=== PATIENT | male | born 1955 | race Caucasian/White ===

== ENCOUNTER 2018-01-17 10:09 | Inpatient (IN) ==
--- NOTE | 2018-01-17 11:24 | ED ---
HPI General Chief complaint: Extremity Problem,Nontraumatic Stated complaint: Leg complaint Time Seen by Provider: 01/17/18 11:01 History of Present Illness HPI narrative: 62-year-old male with a history of metastatic non-small cell lung cancer, GERD, hypertension presents to the emergency department for evaluation of lower extremity pain and weakness. The patient states that last night at 2 AM he woke up with cramps in his legs and soreness as well as paresthesias. States that from the knee down is where he had this pain and soreness and the sensation of his legs feeling asleep. States that this has improved and his symptoms are mild at this point. He does state that his legs are weak and he has had difficulty ambulating due to the weakness. This also began last night. He had a left upper lobectomy performed 01/02/18 at the [facility] and was discharged 5 days ago. States that he is concerned about possible DVT. He denies any chest pain, shortness of breath, abdominal pain, nausea, vomiting, diarrhea, back pain, headache, dizziness, cough or cold symptoms, fever or chills. PCP is the family practice clinic. Oncologist locally is Dr. Hernandez. Related Data Home Medications Medication Instructions Recorded Confirmed acetaminophen 500 mg PO Q8HR 01/17/18 01/17/18 budesonide-formoterol [Symbicort] 2 puff INHALATION BID 01/17/18 01/17/18 folic acid 1 mg PO DAILY 01/17/18 01/17/18 gabapentin 100 mg PO DAILY 01/17/18 01/17/18 ibuprofen [Motrin IB] 800 mg PO TID 01/17/18 01/17/18 [id number] 1 cap PO DAILY 01/17/18 01/17/18 [krill oil] metoprolol tartrate 25 mg PO BID 01/17/18 01/17/18 multivitamin 1 tab PO DAILY 01/17/18 01/17/18 omeprazole 40 mg PO DAILY 01/17/18 01/17/18 oxycodone 10 mg PO Q4-6H 01/17/18 01/17/18 tramadol 50 mg PO Q6H 01/17/18 01/17/18 Allergies Allergy/AdvReac Type Severity Reaction Status Date / Time No Known Allergies Allergy Unverified 01/17/18 11:06 Review of Systems ROS: all other systems reviewed are negative [facility] Social History Social History Substance History: No History of Abuse Second Hand Smoke Exposure: No Smoking Status: Former smoker Tobacco Type: Cigarettes Packs Per Day: 2 Cigarettes Per Day: 40.0 Years Smoked: 45 Pack-Years: 90.00 Smoking End Date: 08/07/17 How Often Do You Have a Drink Containing Alcohol: 2 to 3 times a week Hx Recent Travel: No Recent Travel in [facility] within the Last 8 Weeks: No Recent Out of Country Travel within the Last 8 Weeks: No Immunization History Tetanus Immunization: Unsure Hx Influenza Vaccine This Season: No Exam Narrative Exam Narrative: GENERAL: Well-nourished and well-developed pleasant patient in no acute distress who is nontoxic appearing. SKIN: Warm and dry without any obvious rashes or lesions. HEAD: Normocephalic and atraumatic. No bony point tenderness or crepitus noted throughout the sinuses. EYES: No injection, drainage, or hyphema noted. PERRLA. EOMI. ENT: No nasal drainage noted. Oropharynx is clear and the TMs are normal with good landmarks. NECK: Supple and the trachea is midline. CARDIOVASCULAR: Regular rate and rhythm. RESPIRATORY: Breath sounds are equal bilaterally with no accessory muscle use, wheezing, rhonchi, or crackles. GASTROINTESTINAL: Abdomen is soft, non-tender, and nondistended. MUSCULOSKELETAL: Slight ankle swelling noted to right ankle. No calf swelling noted bilaterally, negative Valdo's sign. No obvious deformities, cyanosis, or ecchymosis is present throughout the upper and lower extremities. Patient has full range of motion without any signs of neurovascular compromise. DP pulses are not dopplerable. PT pulses are dopplerable. Strength 5/5 upper and lower extremities. BACK: Nontender without any obvious deformities, bony point tenderness, or crepitus noted throughout the thoracic and lumbar vertebrae. NEUROLOGICAL: Awake, alert, and oriented. Normal speech and gait. Cranial nerves are grossly intact. Course Initial Documented Vital Signs Temperature 97.9 F 01/17/18 10:20 Pulse Rate 67 01/17/18 10:20 Respiratory Rate 19 01/17/18 10:20 Blood Pressure 145/70 H 01/17/18 10:20 Pulse Oximetry 99 01/17/18 10:20 Last Documented Vital Signs Temperature 98.0 F 01/17/18 16:52 Pulse Rate 63 01/17/18 16:52 Respiratory Rate 20 01/17/18 16:52 Blood Pressure 172/74 H 01/17/18 16:52 Pulse Oximetry 95 01/17/18 16:52 Medical Decision Making LEE ANN Attestation LEE ANN supervised visit: Yes Attestation: The history, exam, and medical decision-making in the associated mid-level provider note were completed with my assistance. I reviewed and agree with the findings presented. I attest that I had a [id number] encounter with the patient on the same day, and personally performed and documented my assessment and findings in the medical record. *My assessment and Findings: 62-year-old man, recent partial lobectomy for primary lung cancer status post chemotherapy and resection of a met in the head, doing overall well, presents now with paresthesias weakness and leg pain, more in the right with a little bit of swelling, more paresthesias in the left. Sending really to rule out DVT. He does have a saphenous vein clot. However he has paresthesias on both sides. His platelet count is very low. Unclear why he has such thrombocytopenia. He was receiving unfractionated heparin injections while in the hospital. He has not received chemotherapy recently. He also had unusual symptoms recently of having some perianal anesthesia while trying to use the bathroom last night. He is a fairly normal rectal exam with perianal sensation intact now. Nonetheless history is not concerning for an epidural hematoma with cauda equina syndrome. Will check MRI. Possibly has hit related to thrombocytopenia. Will be admitted to the hospital. Hit panel was sent. Spoke with Dr. Hernandez. Will crossmatch for platelets and blood in case he has to go emergently to the operating room epidural hematoma in the setting of profound thrombus cytopenia. MDM Narrative Medical decision making narrative: 2-year-old male presents to the emergency department for evaluation of lower extremity aching, cramping and paresthesia with weakness in the lower extremities. Patient is afebrile, vital signs are stable. On physical exam the patient has no weakness but does have slightly more brisk reflexes in the right leg. IV access obtained, labs have been drawn and sent. Patient placed on cardiac telemetry and pulse oximetry monitoring. Ultrasound of bilateral lower extremities has been ordered and is pending. Bilateral lower extremity ultrasound shows occlusive thrombus in the greater saphenous vein on the right. CBC shows platelet count of 15, hemoglobin 9.3, hematocrit 27.2. Coags are unremarkable. Patient's platelet count is critically low, concern for HIIT as he was recently being given heparin postoperatively. Will do MRI of T and L spine to rule out epidural hematoma as cause of lower extremity weakness and paresthesia. My attending physician spoke with Dr. Mary segal who recommends admission to medicine, no anticoagulation at this time for the greater saphenous clot. I spoke with the residents who agrees to admit the patient to their service. I discussed the case with my attending physician Dr. Anderson who is aware of the patients history, physical examination findings, and treatment plan. Medical Screen Exam Complete: Yes Emergency Medical Condition: Yes Lab Data Result diagrams: 01/17/18 20:59 01/17/18 11:45 Lab Results 01/17/18 01/17/18 01/17/18 Range/Units 11:45 11:45 11:45 WBC 10.6 (4.0-11.0) th/mm3 RBC 2.85 L (4.50-5.90) mil/mm3 Hgb 9.3 L (13.0-17.0) gm/dL Hct 27.2 L (39.0-51.0) % MCV 95.2 (80.0-100.0) fL MCH 32.6 (27.0-34.0) pg MCHC 34.2 (32.0-36.0) % RDW 16.5 (11.6-17.2) % Plt Count 15 L* (150-450) th/mm3 MPV 9.9 (7.0-11.0) fL Prelim Diff (Auto) Slide review pending Neut % (Auto) 64.0 (16.0-70.0) % Lymph % (Auto) 19.0 (9.0-44.0) % Craven % (Auto) 12.6 H (0.0-8.0) % Eos % (Auto) 3.5 (0.0-4.0) % Baso % (Auto) 0.9 (0.0-2.0) % Neut # (Auto) 6.8 (1.8-7.7) th/mm3 Lymph # (Auto) 2.0 (1.0-4.8) th/mm3 Craven # (Auto) 1.3 H (0.0-0.9) th/mm3 Eos # (Auto) 0.4 (0.0-0.4) th/mm3 Baso # (Auto) 0.1 (0.0-0.2) th/mm3 WBC Differential . Diff Scan Auto diff confirmed Seg Neuts % (Manual) (16-70) % Band Neuts % (Manual) (0-6) % Lymphocytes % (Manual) (9-44) % Monocytes % (Manual) (0-8) % Eosinophils % (Manual) (0-4) % Metamyelocytes % (Man) (0-1) % Myelocytes % (Man) (0-0) % Abs Neuts (Manual) (1.8-7.7) th/mm3 Differential Comment . Platelet Estimate Rare L (Normal) Platelet Morphology Normal (Normal) RBC Morphology (Normal) PT 12.7 H (9.8-11.6) sec INR 1.3 Ratio APTT 25.2 (24.3-30.1) sec Sodium 144 (136-145) meq/L Potassium 4.3 (3.5-5.1) meq/L Chloride 111 H (98-107) meq/L Carbon Dioxide 25.4 (21.0-32.0) meq/L Anion Gap 8 (5-15) meq/L BUN 19 H (7-18) mg/dL Creatinine 1.20 (0.60-1.30) mg/dL Estimated GFR 61 L (>89) mL/min Random Glucose 82 (74-106) mg/dL Calcium 8.6 (8.5-10.1) mg/dL Total Bilirubin 0.5 (0.2-1.0) mg/dL AST 29 (15-37) U/L ALT 22 (12-78) U/L Alkaline Phosphatase 63 (45-117) U/L Total Protein 6.2 L (6.4-8.2) g/dL Albumin 2.8 L (3.4-5.0) g/dL Blood Type Blood Type Recheck Antibody Screen 01/17/18 01/17/18 Range/Units 13:05 20:59 WBC 9.7 (4.0-11.0) th/mm3 RBC 2.78 L (4.50-5.90) mil/mm3 Hgb 8.8 L (13.0-17.0) gm/dL Hct 26.1 L (39.0-51.0) % MCV 94.1 (80.0-100.0) fL MCH 31.9 (27.0-34.0) pg MCHC 33.8 (32.0-36.0) % RDW 16.7 (11.6-17.2) % Plt Count 18 L* (150-450) th/mm3 MPV 8.9 (7.0-11.0) fL Prelim Diff (Auto) Slide review pending Neut % (Auto) 65.9 (16.0-70.0) % Lymph % (Auto) 19.9 (9.0-44.0) % Craven % (Auto) 9.7 H (0.0-8.0) % Eos % (Auto) 3.7 (0.0-4.0) % Baso % (Auto) 0.8 (0.0-2.0) % Neut # (Auto) 6.4 (1.8-7.7) th/mm3 Lymph # (Auto) 1.9 (1.0-4.8) th/mm3 Craven # (Auto) 0.9 (0.0-0.9) th/mm3 Eos # (Auto) 0.4 (0.0-0.4) th/mm3 Baso # (Auto) 0.1 (0.0-0.2) th/mm3 WBC Differential Manual diff final Diff Scan Seg Neuts % (Manual) 73 H (16-70) % Band Neuts % (Manual) 3 (0-6) % Lymphocytes % (Manual) 14 (9-44) % Monocytes % (Manual) 4 (0-8) % Eosinophils % (Manual) 3 (0-4) % Metamyelocytes % (Man) 1 (0-1) % Myelocytes % (Man) 2 H (0-0) % Abs Neuts (Manual) 7.7 (1.8-7.7) th/mm3 Differential Comment . Platelet Estimate Low L (Normal) Platelet Morphology Normal (Normal) RBC Morphology Normal (Normal) PT (9.8-11.6) sec INR Ratio APTT (24.3-30.1) sec Sodium (136-145) meq/L Potassium (3.5-5.1) meq/L Chloride (98-107) meq/L Carbon Dioxide (21.0-32.0) meq/L Anion Gap (5-15) meq/L BUN (7-18) mg/dL Creatinine (0.60-1.30) mg/dL Estimated GFR (>89) mL/min Random Glucose (74-106) mg/dL Calcium (8.5-10.1) mg/dL Total Bilirubin (0.2-1.0) mg/dL AST (15-37) U/L ALT (12-78) U/L Alkaline Phosphatase (45-117) U/L Total Protein (6.4-8.2) g/dL Albumin (3.4-5.0) g/dL Blood Type O Positive Blood Type Recheck Required Antibody Screen Negative Imaging Data Radiologist's impression: Chest X-Ray 01/17/18 00:00 CONCLUSION: Left lung cavities with air-fluid levels which may be postsurgical Status post left thoracotomy Pleural-parenchymal scarring right upper lobe Venous Doppler Study 01/17/18 00:00 CONCLUSION: 1. The study is negative for bilateral upper extremity deep venous thrombosis. Venous Doppler Study 01/17/18 11:22 CONCLUSION: 1. Occlusive thrombus is seen in the greater saphenous vein on the right. Lumbar Spine MRI 01/17/18 12:34 CONCLUSION: 1. Unremarkable appearance of the lumbar spine. 2. No evidence of bony or soft tissue metastases. Thoracic Spine MRI 01/17/18 12:34 CONCLUSION: 1. Small enhancing nodules identified along the surface of the spinal cord the lower thoracic spine which may represent intradural extra medullary lesions and drop metastases. 2. Postthoracotomy changes identified in the left lung with large air-fluid levels. 3. No evidence of bony metastases. Aorta w/Runoff CTA 01/17/18 17:39 CONCLUSION: 1. Infarction of the inferior pole of the right kidney of unknown age. 2. Severe chronic appearing infrarenal atherosclerotic disease causing severe narrowing of the distal aorta and proximal inflow vessels. Outflow is noted with diffuse atherosclerotic change below the bifurcation with two-vessel runoff to the feet. Discharge Plan Discharge Disposition Patient Disposition: 30 Still Patient Discharge Details Diagnosis: Thrombocytopenia, Lower extremity weakness, Thrombosis of right saphenous vein Physicians Team ED Provider: Vik Anderson ED Midlevel Provider: Emmy Da Silva Primary Care Provider: Crescencio Kelly Attending Provider: Carole Ceballos Other Providers: Rafi Mon ; Antwon Blanton ; Connie Hernandez ; Jens Olea Discharge Interventions Interventions: ED Discharge Assessment Last Done: 01/17/18 17:13 Vital Signs Last Done: 01/17/18 13:00 Status ED Status: Left Department Discharge Information Discharge Date/Time: 01/17/18 17:13
--- NOTE | 2018-01-17 12:11 | US ---
EXAM DATE: 01/17/2018 12:06 PM EDT AGE/SEX: 62 years / Male INDICATIONS: Pain and swelling. CLINICAL DATA: This is the patient's initial encounter. Patient reports that signs and symptoms have been present for 2 days and indicates a pain score of 3/10. MEDICAL/SURGICAL HISTORY: . Brain tumor, Chemotherapy. Lung cancer. . COMPARISON: No prior exams available for comparison. TECHNIQUE: Venous ultrasound of both lower extremities was performed from the inguinal ligament to t he proximal calf. Real-time, color Doppler and spectral tracing, compression and augmentation techni ques were used. FINDINGS: Right Leg: Common femoral, femoral, popliteal, peroneal and posterior tibial veins are patent with a normal grayscale and color Doppler appearance. The right iliac vein is patent. Left Leg: Normal compression of the deep venous system from the inguinal region to the proximal calf . No echogenic clot is seen. Normal response of the venous system to augmentation and respiration. Other: There is occlusive thrombus in the greater saphenous vein on the right. CONCLUSION: 1. Occlusive thrombus is seen in the greater saphenous vein on the right. Electronically signed by: Leon Tello MD 01/17/2018 12:10 PM EDT
[2018-01-17 12:16] LABS: Baso # (Auto) 0.1 th/mm3 (0.0-0.2); Baso % (Auto) 0.9 % (0.0-2.0); Eos # (Auto) 0.4 th/mm3 (0.0-0.4); Eos % (Auto) 3.5 % (0.0-4.0); Hematocrit 27.2 % (39.0-51.0); Hemoglobin 9.3 gm/dL (13.0-17.0); Mean Corpuscular HGB Conc 34.2 % (32.0-36.0); Mean Corpuscular Hemoglobin 32.6 pg (27.0-34.0); Mean Corpuscular Volume 95.2 fL (80.0-100.0); Mean Platelet Volume 9.9 fL (7.0-11.0); Mono # (Auto) 1.3 th/mm3 (0.0-0.9); Mono % (Auto) 12.6 % (0.0-8.0); Neut # (Auto) 6.8 th/mm3 (1.8-7.7); Red Blood Count 2.85 mil/mm3 (4.50-5.90); Red Cell Distribution Width 16.5 % (11.6-17.2); White Blood Count 10.6 th/mm3 (4.0-11.0)
[2018-01-17 12:24] LABS: Activated Partial Thrombo Time 25.2 sec (24.3-30.1); INR 1.3 Ratio; Prothrombin Time 12.7 sec (9.8-11.6)
[2018-01-17 12:32] LABS: Platelet Count 15 th/mm3 (150-450)
[2018-01-17 12:47] LABS: Alanine Aminotransferase 22 U/L (12-78); Albumin 2.8 g/dL (3.4-5.0); Anion Gap 8 meq/L (5-15); Aspartate Aminotransferase 29 U/L (15-37); Blood Urea Nitrogen 19 mg/dL (7-18); Calcium 8.6 mg/dL (8.5-10.1); Carbon Dioxide 25.4 meq/L (21.0-32.0); Chloride 111 meq/L (98-107); Glomerular Filtration Rate 61 mL/min (>89); Glucose,Random 82 mg/dL (74-106); Potassium 4.3 meq/L (3.5-5.1); Sodium 144 meq/L (136-145)
[2018-01-17 12:49] LABS: Alkaline Phosphatase 63 U/L (45-117); Total Protein 6.2 g/dL (6.4-8.2)
[2018-01-17 12:58] LABS: Platelet Estimate Rare (Normal); Platelet Morphology Normal (Normal)
--- NOTE | 2018-01-17 13:17 | P.HPFP ---
History of Present Illness Primary Care Physician: Crescencio Kelly MD History of Present Illness: 62 y/o M, woke up last night with severe pain in lower extremities bilaterally. The pain was so bad it woke him up at 2AM this morning. Pt states it felt like terrible muscle cramps and also a "pins and needles" sensation in both legs and feet bilaterally. He woke up his and said he didn't think he could make it to the bathroom. Even with the walker his legs "could not work" and he fell coming back from the bathroom. He continued to have pain overnight despite percocet and leg massage. When he woke up this morning he felt OK, was able to walk, then it started to hurt again. He sat down in the recliner and the pain returned and he was unable to get back out of the chair. He had to crawl to his walker. They called their Nurse Practitioner from the recent surgery, and they were told to come into the ER for a venous duplex US for blood clots. Pt has been constipated from his pain medication post-op, but had a BM this morning. No changes in urination. In ROS; he does feel numbness/parasthesias around his rectum (could not feel wiping his bottom last night). He does not think he had any parasthesias during the BM this morning. - Diagnosis (1) Metastatic primary lung cancer (2) Lower extremity weakness (3) Thrombosis of right saphenous vein (4) Thrombocytopenia (5) Anemia (6) Atrial fibrillation (7) Nutrition, metabolism, and development symptoms Review of Systems Constitutional: Reports chills, Reports night sweats (chills and night sweats x 2 days post-op), Denies headache(s), Denies increased appetite Eyes: Denies blurry vision Cardiovascular: Denies chest pain, Denies chest pain at rest, Denies fast heart rate, Denies lightheadedness Respiratory: Denies chest congestion, Denies cough, Denies coughing up blood Gastrointestinal: Denies abdominal pain, Denies black, tarry stools, Denies coffee ground vomit Genitourinary: Denies decreased urination, Denies urinary frequency, Denies urinary hesitancy Musculoskeletal: Reports abnormal walking (as in HPI), Reports back pain ( chronic x 35 years, slipped disc ) Skin/Breast: Denies itching Psychiatric: Denies abnormal sleep pattern, Denies anxiety, Denies confusion, Denies depression PMFSH - History History Provided By: Patient - Medical History Medical History: Medical History (Last Updated 01/17/18 @ 13:41 by Susanna Bailey MD, R2) Brain tumor FHx: chemotherapy Lung cancer Primary cancer of left lower lobe of lung - Surgical History Surgical History: Surgical History (Last Updated 01/17/18 @ 13:41 by Susanna Bailey MD, R2) History of tympanoplasty - Family History Family History: Family History (Last Updated 01/17/18 @ 13:41 by Susanna Bailey MD, R2) Other Cancer - Social History I have reviewed the patient's Social History: Yes - Tobacco History Second Hand Smoke Exposure: No Tobacco Use In Past 30 Days: No Smoking Status: Former smoker Tobacco Type: Cigars (past , occasional) Packs Per Day: 2 Years Smoked: 45 Smoking End Date: 08/07/17 - Alcohol History How Often Do You Have a Drink Containing Alcohol: Monthly or less - Substance Use History Substance History: No History of Abuse - Travel History History of Recent Travel: No Recent Travel in the [place] Within the Last 8 Weeks: No Recent Travel Out of the Country Within the Last 8 Weeks: No - Immunization History Tetanus Immunization: Unsure Hx Influenza Vaccine This Season: No Medications and Allergies Active Medications: Active Medications Sodium Chloride (Ns Flush) 2 ml IV.FLUSH PRN PRN PRN Reason: FLUSH AFTER USING IV ACCESS Allergies Allergy/AdvReac Type Severity Reaction Status Date / Time No Known Allergies Allergy Unverified 01/17/18 11:06 Home Medications Medication Instructions Recorded Confirmed Type acetaminophen 500 mg PO Q8HR 01/17/18 01/17/18 History budesonide-formoterol [Symbicort] 2 puff INHALATION BID 01/17/18 01/17/18 History folic acid 1 mg PO DAILY 01/17/18 01/17/18 History gabapentin 100 mg PO DAILY 01/17/18 01/17/18 History ibuprofen [Motrin IB] 800 mg PO TID 01/17/18 01/17/18 History rondr-ix-5-jyi-mrd-ymtbbxt-ast 1 cap PO DAILY 01/17/18 01/17/18 History [krill oil] metoprolol tartrate 25 mg PO BID 01/17/18 01/17/18 History multivitamin 1 tab PO DAILY 01/17/18 01/17/18 History omeprazole 40 mg PO DAILY 01/17/18 01/17/18 History oxycodone 10 mg PO Q4-6H 01/17/18 01/17/18 History tramadol 50 mg PO Q6H 01/17/18 01/17/18 History Exam Vital signs: Vital Signs 01/17/18 10:20 01/17/18 11:03 01/17/18 13:00 Temperature 97.9 F Pulse Rate 67 62 61 Respiratory Rate 19 16 24 Blood Pressure 145/70 H 159/69 H 175/74 H Pulse Oximetry 99 100 98 Intake & Output 01/16/18 01/17/18 01/17/18 18:59 06:59 18:59 Weight 69.853 kg - Constitutional no acute distress - Routine Respiratory Exam Present: decreased breath sounds (Decreased breath sounds over left middle lobe) , CTA bilaterally, stridor. Absent: respiratory distress, wheezes, crackles - Routine Cardiovascular Exam Present: RRR, S1, S2. Absent: murmur - Routine Abdominal Exam Present: soft, normoactive bowel sounds. Absent: tenderness - Routine Extremities Exam Absent: clubbing, edema - Detailed Lower Extremity Exam Hip: Bilateral normal inspection Upper leg: Bilateral: normal inspection Knee: Bilateral normal inspection Lower leg: Bilateral normal inspection Comments: No deformities or tenderness of either leg bilaterally, no pain re-created on palpation of calf. No pain with dorsiflexion. Strength intact and 5 out of 5. Patient states his weakness comes and goes and this is not indicative of this weakness. - Routine Skin Exam Present: intact. Absent: erythema - Routine Neurological Exam Present: alert, oriented X3, CN II-XII intact, moving all extremities. Absent: sensory deficit (Sensory intact in upper and lower extremities completely, equally intact), motor deficit, pronator drift Results - Labs Result diagrams: 01/17/18 11:45 01/17/18 11:45 Abnormal lab results 01/17/18 01/17/18 01/17/18 Range/Units 11:45 11:45 11:45 RBC 2.85 L (4.50-5.90) mil/mm3 Hgb 9.3 L (13.0-17.0) gm/dL Hct 27.2 L (39.0-51.0) % Plt Count 15 L* (150-450) th/mm3 [place] % (Auto) 12.6 H (0.0-8.0) % [place] # (Auto) 1.3 H (0.0-0.9) th/mm3 Platelet Estimate Rare L (Normal) PT 12.7 H (9.8-11.6) sec Chloride 111 H (98-107) meq/L BUN 19 H (7-18) mg/dL Estimated GFR 61 L (>89) mL/min Total Protein 6.2 L (6.4-8.2) g/dL Albumin 2.8 L (3.4-5.0) g/dL Short CBC 01/17/18 Range/Units 11:45 WBC 10.6 (4.0-11.0) th/mm3 Hgb 9.3 L (13.0-17.0) gm/dL Hct 27.2 L (39.0-51.0) % Plt Count 15 L* (150-450) th/mm3 BMP 01/17/18 11:45 Sodium 144 Potassium 4.3 Chloride 111 H Carbon Dioxide 25.4 BUN 19 H Creatinine 1.20 Calcium 8.6 Liver Function 01/17/18 Range/Units 11:45 Total Bilirubin 0.5 (0.2-1.0) mg/dL AST 29 (15-37) U/L ALT 22 (12-78) U/L Alkaline Phosphatase 63 (45-117) U/L Albumin 2.8 L (3.4-5.0) g/dL - Imaging Impressions Venous Doppler Study 01/17/18 11:22 CONCLUSION: 1. Occlusive thrombus is seen in the greater saphenous vein on the right. Caprini VTE Risk Assessment Caprini VTE Risk Assessment: No/Low Risk (score <= 1) Caprini Risk Assessment Model: Point Value = 1 Point Value = 2 Point Value = 3 Point Value = 5 Age 41-60 Minor surgery BMI > 25 kg/m2 Swollen legs Varicose veins or History of unexplained or recurrent spontaneous Oral contraceptives or hormone replacement Sepsis (< 1 month) Serious lung disease, including pneumonia (< 1 month) Abnormal pulmonary function Acute myocardial infarction Congestive heart failure (< 1 month) History of inflammatory bowel disease Medical patient at bed rest Age 61-74 Arthroscopic surgery Major open surgery (> 45 min) Laparoscopic surgery (> 45 min) Malignancy Confined to bed (> 72 hours) Immobilizing plaster cast Central venous access Age >= 75 History of VTE Family history of VTE Factor V Leiden Prothrombin [id number] Lupus anticoagulant Anticardiolipin antibodies Elevated serum homocysteine Heparin-induced thrombocytopenia Other congenital or acquired thrombophilia Stroke (< 1 month) Elective arthroplasty Hip, pelvis, or leg fracture Acute spinal cord injury (< 1 month) Prophylaxis Regimen: Total Risk Factor Score Risk Level Prophylaxis Regimen 0-1 Low Early ambulation 2 Moderate Order ONE of the following: *Sequential Compression Device (SCD) *Heparin 5000 units SQ BID 3-4 Higher Order ONE of the following medications: *Heparin 5000 units SQ TID *Enoxaparin/Lovenox 40 mg SQ daily (WT < 150 kg, CrCl > 30 mL/min) *Enoxaparin/Lovenox 30 mg SQ daily (WT < 150 kg, CrCl > 10-29 mL/min) *Enoxaparin/Lovenox 30 mg SQ BID (WT < 150 kg, CrCl > 30 mL/min) AND/OR *Sequential Compression Device (SCD) 5 or more Highest Order ONE of the following medications: *Heparin 5000 units SQ TID (Preferred with Epidurals) *Enoxaparin/Lovenox 40 mg SQ daily (WT < 150 kg, CrCl > 30 mL/min) *Enoxaparin/Lovenox 30 mg SQ daily (WT < 150 kg, CrCl > 10-29 mL/min) *Enoxaparin/Lovenox 30 mg SQ BID (WT < 150 kg, CrCl > 30 mL/min) AND *Sequential Compression Device (SCD) Assessment and Plan - Assessment (1) Metastatic primary lung cancer Code(s): C34.90 - Malignant neoplasm of unspecified part of unspecified bronchus or lung Status: Acute Plan: Status post chemo, status post lobectomy Recent PET scans negative Follow-up MRI of spine to assess for lesions management as per her private oncologist (2) Lower extremity weakness Code(s): R29.898 - Other symptoms and signs involving the musculoskeletal system Status: Acute Plan: Due to spinal lesion versus epidural abscess versus superficial thrombophlebitis versus progressing DVT Follow-up MRI spine Follow-up clinical progress PT evaluation (3) Thrombosis of right saphenous vein Code(s): I82.811 - Embolism and thrombosis of superficial veins of right lower extremity Status: Acute Plan: Doses of lower extremity superficial vein, generally benign and self-limited however a larger vein is involved in this case -Caution with propagation into the DVT system and PE possibility -Likely due to abnormal coagulation at this time -Caution with signs of propagation, may repeat duplex ultrasound with further clinical signs Elevation Warm and cool compresses Compression stockings Pain management (4) Thrombocytopenia Code(s): D69.6 - Thrombocytopenia, unspecified Status: Acute Plan: Postop day #12 from lobectomy, status post heparin 9 days ago Refer to private production lapping machine operator Dr. Hernandez for further recommendations Possible heparin-induced thrombocytopenia versus other etiology No transfusion recommended at this time due to possibility of further coagulation Hold all heparin forms Follow-up ultrasounds upper extremities to screen for DVT Follow-up recommendations of production lapping machine operator; may want to start an nonheparin anticoagulant Will not transfuse platelets unless bleeding, follow-up repeat CBC at 6 PM (5) Anemia Code(s): D64.9 - Anemia, unspecified Status: Acute Plan: No history of anemia per patient Likely chronic anemia, screen for acute anemia, patient at high risk for bleeding due to thrombocytopenia Hemoglobin 9.3, follow-up CBC at 6 PM (6) Atrial fibrillation Code(s): I48.91 - Unspecified atrial fibrillation Status: Acute Plan: Continue telemetry Continue metoprolol Return for arrhythmias (7) Nutrition, metabolism, and development symptoms Code(s): R63.8 - Other symptoms and signs concerning food and fluid intake Status: Acute Plan: Fluids: N.p.o. until MRI results Electrolytes: Follow-up BMP and replete as needed Nutrition: N.p.o. until MRI results DVT prophylaxis: Holding all heparin products, SCDs only
[2018-01-17] MEDS ORDERED: Gabapentin 100 MG Capsule PO SCH (13:45)
[2018-01-17] MEDS: Acetaminophen 500 MG Tablet PO SCH ×2 (14:04→21:18)
[2018-01-17] MEDS: Metoprolol Tartrate 25 MG Tablet PO SCH ×2 (14:04→21:17)
[2018-01-17] MEDS: Folic Acid 1 MG Tablet PO SCH (14:04)
[2018-01-17] MEDS ORDERED: Bisacodyl 10 MG Supp RECTAL PRN (14:08)
[2018-01-17] MEDS ORDERED: Naloxone Inj 0.4 MG/ML Vial IV.PUSH PRN (14:39)
--- NOTE | 2018-01-17 14:50 | XR ---
EXAM DATE: 01/17/2018 2:44 PM EDT AGE/SEX: 62 years / Male INDICATIONS: . Atelectasis, loss of feeling in both legs, numbness, tingling. CLINICAL DATA: This is the patient's initial encounter. Patient reports that signs and symptoms have been present for 1 day and indicates a pain score of 0/10. MEDICAL/SURGICAL HISTORY: . left lung cancer., blood clot in right leg, low platelet count, . partial left lung removed, brain surgery COMPARISON: No prior exams available for comparison. FINDINGS: Air-fluid levels are identified in 2 discrete cavities within the left hemithorax. One is located in the mid lung and the second in the left apex. Postsurgical changes indicative of prior thoracostomy a re noted. There is loss of volume within the left hemithorax suggesting prior lobectomy. Pleural-parenchymal scarring is identified in the right upper lobe. Osseous structures are grossly intact without evidence of destructive lesions. There is a left-sided rib deformity presumably from prior thoracotomy. CONCLUSION: Left lung cavities with air-fluid levels which may be postsurgical Status post left thoracotomy Pleural-parenchymal scarring right upper lobe Electronically signed by: Wesley Cervantes MD 01/17/2018 2:49 PM EDT
[2018-01-17] MEDS ORDERED: Morphine Sulfate Inj 2 MG/ML Vial IV.PUSH PRN (16:00)
[2018-01-17] MEDS ORDERED: Acetaminophen 325 MG Tablet PO PRN (16:00)
--- NOTE | 2018-01-17 16:02 | MR ---
EXAM DATE: 01/17/2018 3:49 PM EDT AGE/SEX: 62 years / Male INDICATIONS: . Lower extremity weakness. CLINICAL DATA: This is the patient's initial encounter. Patient reports that signs and symptoms have been present for 2 days and indicates a pain score of 3/10. MEDICAL/SURGICAL HISTORY: Carcinoma, lung. Lobectomy. Removal of brain tumor. COMPARISON: No prior exams available for comparison. TECHNIQUE: Multiplanar, multisequence MRI of the thoracic spine was performed without and with 7 ml Gadavist (gadobutrol) contrast as a single exam dose. FINDINGS: ALIGNMENT: Vertebral bodies are satisfactorily aligned without evidence of listhesis. FACET AND OSSEOUS STRUCTURES: Vertebral body height is well-maintained. There is no evidence of acut e fracture, bone marrow edema or destructive changes. There is no significant facet arthropathy. INTERVERTEBRAL DISC SPACES: Intervertebral disc are well-maintained without evidence of significant degenerative change. There is no evidence of disc herniation. NEUROLOGIC STRUCTURES: Along the right lateral margin of the spinal cord at the T9-T10 and T11 levels there are small enhancing nodular structures which appear to be intradural and extra medullary in lo cation. The spinal cord otherwise appears normal without evidence of focal abnormality or abnormal en hancement. . CONCLUSION: 1. Small enhancing nodules identified along the surface of the spinal cord the lower thoracic spine which may represent intradural extra medullary lesions and drop metastases. 2. Postthoracotomy changes identified in the left lung with large air-fluid levels. 3. No evidence of bony metastases. Electronically signed by: Wesley Cervantes MD 01/17/2018 4:01 PM EDT
--- NOTE | 2018-01-17 16:04 | MR ---
EXAM DATE: 01/17/2018 3:52 PM EDT AGE/SEX: 62 years / Male INDICATIONS: . Weakness lower extremities. CLINICAL DATA: This is the patient's initial encounter. Patient reports that signs and symptoms have been present for 2 days and indicates a pain score of 3/10. MEDICAL/SURGICAL HISTORY: Carcinoma, lung. Lobectomy. Removal of brain tumor. COMPARISON: No prior exams available for comparison. TECHNIQUE: Multiplanar, multisequence MRI examination of the lumbar spine was performed without and with 7 ml Gadavist (gadobutrol) contrast as a single exam dose. FINDINGS: ALIGNMENT: Vertebral bodies are satisfactorily aligned without evidence of listhesis. FACET AND OSSEOUS STRUCTURES: Vertebral body height is well-maintained. There is no evidence of acut e fracture, bone marrow edema or destructive changes. There is no significant facet arthropathy. INTERVERTEBRAL DISC SPACES: Intervertebral disc are well-maintained without evidence of significant degenerative change. There is no evidence of disc herniation. NEUROLOGIC STRUCTURES: The spinal cord and nerve roots appear normal. There is no evidence of jeannine praveen. . CONCLUSION: 1. Unremarkable appearance of the lumbar spine. 2. No evidence of bony or soft tissue metastases. Electronically signed by: Wesley Cervantes MD 01/17/2018 4:03 PM EDT
--- NOTE | 2018-01-17 16:39 | US ---
EXAM DATE: 01/17/2018 4:35 PM EDT AGE/SEX: 62 years / Male INDICATIONS: Thrombosis. CLINICAL DATA: This is the patient's subsequent encounter. Patient reports that signs and symptoms h ave been present for 1 day and indicates a pain score of 0/10. MEDICAL/SURGICAL HISTORY: . Brain tumor. Chemotherapy. Lung cancer. Lobectomy. COMPARISON: No prior exams available for comparison. FINDINGS: Right Upper Extremity: The vessels are compressible and augmentation response is documented. No fill ing defects are seen. The flow is phasic with respiration. Left Upper Extremity: The vessels are compressible and augmentation response is documented. No filli ng defects are seen. The flow is phasic with respiration. Other: None. CONCLUSION: 1. The study is negative for bilateral upper extremity deep venous thrombosis. Electronically signed by: Leon Tello MD 01/17/2018 4:37 PM EDT
[2018-01-17] MEDS: Ibuprofen 200 MG Tablet PO SCH (18:24)
[2018-01-17] MEDS: Sod Chloride 0.9% Inj 1,000 ML IV.CONT SCH (18:26)
[2018-01-17] MEDS ORDERED: Gadobutrol PF 7.5 MMOL/7.5 ML Vial (for RAD) IV.SIG ONE (18:42)
--- NOTE | 2018-01-17 19:40 | MB ---
cc: Rafi Krishnan MD DATE: 01/17/2018 HISTORY OF PRESENT ILLNESS: He is a 62-year-old right-handed man with atrial fibrillation, brief. About 2 weeks ago, he had a left thoracotomy for lung cancer. He tells me it has not spread anywhere besides his brain, which was in 06/2017 when he had tumor removal and Gamma Knife. He has not had any headaches. He is actually doing quite well. No new back pain. He has an old chronic disk in the low back, and then he woke up early this morning at about 4 a.m. with severe pain down the right thigh and calf, almost like a cramp feeling, although they were not cramped up, and then within less than an hour, the left leg seemed to have pain also. He had difficulty walking. It was very painful, and then when he had a bowel movement, he felt like he was somewhat numb perianally. The pain has lasted about 3 hours or so, seemed to get quite a bit better. He has not had any new back pain. REVIEW OF SYSTEMS: He denies any history of hypertension, diabetes, hypercholesterolemia, NC, CABG, renal or hepatic or thyroid disease, lupus, ulcer, seizure, or stroke. SOCIAL HISTORY: He quit smoking recently when he was diagnosed with cancer but smoked for 45 years. Occasionally has a drink. Lives with his . FAMILY HISTORY: Positive for cancer. Negative for seizure. Positive for stroke. MEDICATIONS AT HOME: 1. He was on Tylenol. 2. Multivitamin. 3. Krill oil. 4. Tramadol 50 q. 6. 5. Oxycodone. 6. Omeprazole. 7. Folic acid. 8. Symbicort. 9. Metoprolol. 10. Ibuprofen. 11. Gabapentin 100 a day. PHYSICAL EXAMINATION: VITAL SIGNS: Afebrile, 62, 16, 159/69. There is a right carotid bruit, although it is hard to tell if it is a radiated murmur. HEART: Regular rhythm with a 1/6 systolic ejection murmur. NEUROLOGIC: Pupils are equal. Visual stewart are full. Extraocular movements intact without nystagmus. Face is symmetric with normal sensation. Tongue was midline. There is no drift. He had normal strength in upper and lower extremities bilaterally including iliopsoas, hamstring, quad, tibialis anterior, gastrocs. DTRs are 1 plus bilaterally in the upper extremities, 2+ in the left knee jerk, 3+ on the right. There is no ankle clonus. Toes were downgoing bilaterally. Tone was normal throughout. Pinprick and proprioception are intact throughout. There is no pin level including perianally and on his penis. Pinprick was normal except for some slight pinprick diminished in the distal toes bilaterally. He is not ataxic on [id number]. He had normal gait, was able to stand on his toes, as well as get up out of bed on his own. Speech is fluent. He is not aphasic. EXTREMITIES: His feet are very cold. The toes are somewhat blue with poor capillary refill. I could not detect any pulses in his feet, although he tells me he has had cold feet in the past. LABORATORY DATA: MRI of LS spine negative with and without contrast. MRI of the thoracic spine showed 2 areas in the mid to lower thoracic spine, peripherally enhancing, somewhat irregular. It is best seen on the sagittal images. His CBC shows a platelet count of 15,000, hematocrit 27, otherwise normal. Basic metabolic profile is essentially normal. Creatinine is 1.2. LFTs normal. Albumin 2.8. Coags were normal. Abnormal enhancing nodular structures, intradural, extramedullary, T9-T11 levels. He had a venous Doppler of the lower extremities, showed an occlusion of the greater saphenous vein on the right. Venous Doppler of the upper extremities is normal. Chest x-ray: Air fluid levels postsurgical in the left lung. IMPRESSION: Neurological exam essentially normal right now except he has a little hyper-reflexibility in the right knee jerk. Unusual case in that if it was carcinomatous meningitis or cauda equina syndrome, I would think that he would have had some symptoms still. His lower extremity, I did not detect any blood flow in the feet. We will check some bilateral lower extremity arterial Dopplers. Check an MRI of the brain and cervical spine and EEG. I would not have him on tramadol with a history of brain tumor removal as there is increase risk of seizures. He should also not take Wellbutrin. We cannot do an LP right now with the low platelet count. Hematology is working on that. I will be following with him in the hospital, but overall right now, he looks neurologically intact. ADDENDUM: I do not feel any pulses in his groin either, so we will go ahead and do a CTA of his abdomen and lower extremities. He did have that a fibrillation too recently, so he could have thrown clots from there, or the HIT, if he has that, could also cause some thrombosis. Evidently, according to Dr. Hernandez. MD JACKELYN Mosquera/macre , 05:33 PM , 05:44 PM
--- NOTE | 2018-01-17 19:43 | P.CONNS ---
History of Present Illness Service: neurosurgery Consult date: 01/17/18 Requesting Physician: Flaquita Horner Primary Care Provider: Crescencio Kelly MD Family Provider: Crescencio Kelly MD History of Present Illness: This is a 62 y/o male who woke up last night with severe pain in lower extremities bilaterally. The pain was so severe that it woke him up at 2AM this morning. He reports terrible muscle cramps and also a "pins and needles" sensation in both legs and feet bilaterally. He woke up his and said he didn't think he could make it to the bathroom due to the pain. Even with the walker his legs "could not work" and he fell coming back from the bathroom. He continued to have pain overnight despite percocet and leg massage. When he woke up this morning he felt OK, was able to walk, then it started to hurt again. He sat down in the recliner and the pain returned and he was unable to get back out of the chair. He had to crawl to his walker. They called their Nurse Practitioner from the recent surgery, and they were told to come into the ER for a venous duplex. Mr Bernstein has been constipated from his pain medication post-op, but had a BM this morning. No changes in urination. He denies numbness/parasthesias around his rectum (could not feel wiping his bottom last night). He does not think he had any parasthesias during the BM this morning. Denies focal weakness. He denies sensory loss. He denies incontinwence of sool or urine. MRI was done. Neurosurgery consultation was requested Review of Systems Constitutional: Reports chills, Reports night sweats (chills and night sweats x 2 days post-op), Denies headache(s), Denies increased appetite Eyes: Denies blurry vision Cardiovascular: Denies chest pain, Denies chest pain at rest, Denies fast heart rate, Denies lightheadedness Respiratory: Denies chest congestion, Denies cough, Denies coughing up blood Gastrointestinal: Denies abdominal pain, Denies black, tarry stools, Denies coffee ground vomit Genitourinary: Denies decreased urination, Denies urinary frequency, Denies urinary hesitancy Musculoskeletal: Reports abnormal walking (as in HPI), Reports back pain ( chronic x 35 years, slipped disc ) Skin/Breast: Denies itching Psychiatric: Denies abnormal sleep pattern, Denies anxiety, Denies confusion, Denies depression PMFSH - Medical History Medical History: Medical History (Last Reviewed 01/17/18 @ 19:36 by Antwon Blanton MD) Brain tumor FHx: chemotherapy Lung cancer Primary cancer of left lower lobe of lung - Surgical History Surgical History: Surgical History (Last Reviewed 01/17/18 @ 19:36 by Antwon Blanton MD) History of tympanoplasty - Family History Family History: Family History (Last Reviewed 01/17/18 @ 19:36 by Antwon Blanton MD) Other Cancer - Tobacco History Second Hand Smoke Exposure: No Tobacco Use In Past 30 Days: No Smoking Status: Former smoker Tobacco Type: Cigarettes Packs Per Day: 2 Years Smoked: 45 Smoking End Date: 08/07/17 - Alcohol History How Often Do You Have a Drink Containing Alcohol: 2 to 3 times a week - Substance Use History Substance History: No History of Abuse - Travel History History of Recent Travel: No Recent Travel in the [place] Within the Last 8 Weeks: No Recent Travel Out of the Country Within the Last 8 Weeks: No - Immunization History Tetanus Immunization: >5 Years Hx Influenza Vaccine This Season: No Medications and Allergies Active Medications: Active Medications Acetaminophen (Tylenol) 500 mg PO Q8HR [facility] Last Admin: 01/17/18 14:04 Dose: 500 mg Acetaminophen (Tylenol) 650 mg PO Q6HR PRN PRN Reason: PAIN SCALE 1 TO 2 Hydrocodone Bitart/Acetaminophen ([place] 7.5/325) 1 tab PO Q4H PRN PRN Reason: PAIN SCALE 6 TO 10 Al Hydroxide/Mg Hydroxide (Milk Of Magnjr Liq) 30 ml PO Q12H PRN PRN Reason: Mild Constipation Bisacodyl (Dulcolax Supp) 10 mg RECTAL DAILY PRN PRN Reason: SEVERE CONSITIPATION Budesonide/Formoterol Fumarate (Symbicort 160/4.5 Mcg Inh) 2 puff INH BID [facility] Folic Acid (Folic Acid) 1 mg PO DAILY [facility] Last Admin: 01/17/18 14:04 Dose: 1 mg Gabapentin (Neurontin) 100 mg PO DAILY [facility] Last Admin: 01/17/18 14:04 Dose: 100 mg Sodium Chloride (Ns Inj) 1,000 mls @ 70 mls/hr IV.CONT .[id number] [facility] Last Admin: 01/17/18 18:26 Dose: 70 mls/hr Ibuprofen (Advil) 800 mg PO TID [facility] Last Admin: 01/17/18 18:24 Dose: 800 mg Lactulose (Lactulose Liq) 30 ml PO DAILY PRN PRN Reason: SEVERE CONSITIPATION Metoprolol Tartrate (Lopressor) 25 mg PO BID [facility] Last Admin: 01/17/18 14:04 Dose: 25 mg Morphine Sulfate (Morphine Inj) 2 mg IV.PUSH Q3H PRN PRN Reason: BREAKTHROUGH PAIN Naloxone HCl (Narcan Inj) 0.4 mg IV.PUSH UNSCH PRN PRN Reason: SEE LABEL COMMENTS Oxycodone/Acetaminophen (Percocet 5/325 Mg) 1 tab PO Q6H PRN PRN Reason: PAIN SCALE 3 TO 5 Pantoprazole Sodium (Protonix) 40 mg PO DAILY [facility] Last Admin: 01/17/18 14:04 Dose: 40 mg Sennosides (Senokot) 17.2 mg PO Q12H PRN PRN Reason: Moderate Constipation Sodium Chloride (Ns Flush) 2 ml IV.FLUSH PRN PRN PRN Reason: FLUSH AFTER USING IV ACCESS Temazepam (Restoril) 15 mg PO HS PRN PRN Reason: INSOMNIA Allergies Allergy/AdvReac Type Severity Reaction Status Date / Time No Known Allergies Allergy Unverified 01/17/18 11:06 Home Medications Medication Instructions Recorded Confirmed Type acetaminophen 500 mg PO Q8HR 01/17/18 01/17/18 History budesonide-formoterol [Symbicort] 2 puff INHALATION BID 01/17/18 01/17/18 History folic acid 1 mg PO DAILY 01/17/18 01/17/18 History gabapentin 100 mg PO DAILY 01/17/18 01/17/18 History ibuprofen [Motrin IB] 800 mg PO TID 01/17/18 01/17/18 History [id number]-ast 1 cap PO DAILY 01/17/18 01/17/18 History [krill oil] metoprolol tartrate 25 mg PO BID 01/17/18 01/17/18 History multivitamin 1 tab PO DAILY 01/17/18 01/17/18 History omeprazole 40 mg PO DAILY 01/17/18 01/17/18 History oxycodone 10 mg PO Q4-6H 01/17/18 01/17/18 History tramadol 50 mg PO Q6H 01/17/18 01/17/18 History Exam Vital signs: Vital Signs 01/17/18 10:20 01/17/18 11:03 01/17/18 13:00 Temperature 97.9 F Pulse Rate 67 62 61 Respiratory Rate 19 16 24 Blood Pressure 145/70 H 159/69 H 175/74 H Pulse Oximetry 99 100 98 01/17/18 16:52 Temperature 98.0 F Pulse Rate 63 Respiratory Rate 20 Blood Pressure 172/74 H Pulse Oximetry 95 Intake & Output 01/17/18 01/17/18 01/18/18 06:59 18:59 06:59 Output Total 250 / 250 Balance -250 / -250 Weight 68.1 kg Output: Urine 250 / 250 Other: Weight On Admission 68.1 kg Narrative: The patient is alert, awake. Comfortable, in no acute distress. Speech is fluent. Cranial nerve examination: pupils to be equal, round and reactive to light. Extra-ocular movements are intact. Facial motor and sensory function are normal and symmetrical. Gross hearing appears intact. Sternocleidomastoid and trapezius muscles are symmetrical. Other cranial nerves are intact. Neck is soft and supple with a good range of motion without pain. Muscle strength is good and symmetrical in all muscle groups of both upper and lower extremities. Sensory examination is intact to light touch and pin prick in both the upper and lower extremities. Deep tendon reflexes are symmetrical in both upper and lower extremities. There is a bilateral plantar flexion response. Cerebellar examination is unremarkable, without deficits. Lungs are decreased bilat Heart regular rhythm is regular rate Skin warm and dry Results - Laboratory Findings CBC and BMP: 01/17/18 11:45 01/17/18 11:45 Abnormal lab findings: Abnormal Labs 01/17/18 01/17/18 01/17/18 11:45 11:45 11:45 RBC 2.85 L Hgb 9.3 L Hct 27.2 L Plt Count 15 L* [place] % (Auto) 12.6 H [place] # (Auto) 1.3 H Platelet Estimate Rare L PT 12.7 H Chloride 111 H BUN 19 H Estimated GFR 61 L Total Protein 6.2 L Albumin 2.8 L Assessment and Plan - Plan I have reviewed the clinical and radiological findings Chest X-Ray 01/17/18 00:00 CONCLUSION: Left lung cavities with air-fluid levels which may be postsurgical Status post left thoracotomy Pleural-parenchymal scarring right upper lobe Venous Doppler Study 01/17/18 11:22 CONCLUSION: 1. Occlusive thrombus is seen in the greater saphenous vein on the right. Lumbar Spine MRI 01/17/18 12:34 CONCLUSION: 1. Unremarkable appearance of the lumbar spine. 2. No evidence of bony or soft tissue metastases. Thoracic Spine MRI 01/17/18 12:34 CONCLUSION: 1. Small enhancing nodules identified along the surface of the spinal cord the lower thoracic spine which may represent intradural extra medullary lesions and drop metastases. 2. Postthoracotomy changes identified in the left lung with large air-fluid levels. 3. No evidence of bony metastases. Neuro: neuro checks in a serial fashion. No surgical intervention is indicated for thoracic spine lesions. Consult radiation oncology Pulmonary: aggressive pulmonary toilette, nasotracheal suction, and breathing treatments with nebulizers. Metastatic primary lung cancer Code(s): C34.90 - Malignant neoplasm of unspecified part of unspecified bronchus or lung Status: Acute Plan: Status post chemo, status post lobectomy Recent PET scans negative Recommend follow-up MRI of cervical spine and brain to assess for lesions Thrombocytopenia Code(s): D69.6 - Thrombocytopenia, unspecified Status: Acute Plan: Postop day #12 from lobectomy, status post heparin 9 days ago Refer to private bat lathe operator Dr. Hernandez for further recommendations Possible heparin-induced thrombocytopenia versus other etiology No transfusion recommended at this time Hold all heparin forms Follow-up ultrasounds upper extremities to screen for DVT Follow-up recommendations of bat lathe operator; may want to start an nonheparin anticoagulant Will not transfuse platelets unless bleeding, follow-up repeat CBC at 6 PM Anemia Code(s): D64.9 - Anemia, unspecified Status: Acute Plan: Likely chronic anemia, screen for acute anemia, patient at high risk for bleeding due to thrombocytopenia Hemoglobin 9.3, follow-up CBC at 6 PM Atrial fibrillation Code(s): I48.91 - Unspecified atrial fibrillation Status: Acute Plan: telemetry Continue metoprolol Return for arrhythmias Nutrition, metabolism, and development symptoms Code(s): R63.8 - Other symptoms and signs concerning food and fluid intake Status: Acute Electrolytes: Follow-up BMP and replete as needed Daily PT and OT Renal: Continue to monitor closely urine output, BUN and creatinine Endocrine: Monitor serial Acu checks and SSI as needed in detail ID continue to monitor for signs of infection Continue Protonix for stress ulcer prophylaxis Thrombosis of right saphenous vein Code(s): I82.811 - Embolism and thrombosis of superficial veins of right lower extremity Status: Acute Plan: Doses of lower extremity superficial vein, generally benign and self-limited however a larger vein is involved in this case Leg elevation Warm and cool compresses Compression stockings Caprini VTE Risk Assessment Caprini VTE Risk Assessment: No/Low Risk (score <= 1) Caprini Risk Assessment Model: Point Value = 1 Point Value = 2 Point Value = 3 Point Value = 5 Age 41-60 Minor surgery BMI > 25 kg/m2 Swollen legs Varicose veins or History of unexplained or recurrent spontaneous Oral contraceptives or hormone replacement Sepsis (< 1 month) Serious lung disease, including pneumonia (< 1 month) Abnormal pulmonary function Acute myocardial infarction Congestive heart failure (< 1 month) History of inflammatory bowel disease Medical patient at bed rest Age 61-74 Arthroscopic surgery Major open surgery (> 45 min) Laparoscopic surgery (> 45 min) Malignancy Confined to bed (> 72 hours) Immobilizing plaster cast Central venous access Age >= 75 History of VTE Family history of VTE Factor V Leiden Prothrombin [id number] Lupus anticoagulant Anticardiolipin antibodies Elevated serum homocysteine Heparin-induced thrombocytopenia Other congenital or acquired thrombophilia Stroke (< 1 month) Elective arthroplasty Hip, pelvis, or leg fracture Acute spinal cord injury (< 1 month) Prophylaxis Regimen: Total Risk Factor Score Risk Level Prophylaxis Regimen 0-1 Low Early ambulation 2 Moderate Order ONE of the following: *Sequential Compression Device (SCD) *Heparin 5000 units SQ BID 3-4 Higher Order ONE of the following medications: *Heparin 5000 units SQ TID *Enoxaparin/Lovenox 40 mg SQ daily (WT < 150 kg, CrCl > 30 mL/min) *Enoxaparin/Lovenox 30 mg SQ daily (WT < 150 kg, CrCl > 10-29 mL/min) *Enoxaparin/Lovenox 30 mg SQ BID (WT < 150 kg, CrCl > 30 mL/min) AND/OR *Sequential Compression Device (SCD) 5 or more Highest Order ONE of the following medications: *Heparin 5000 units SQ TID (Preferred with Epidurals) *Enoxaparin/Lovenox 40 mg SQ daily (WT < 150 kg, CrCl > 30 mL/min) *Enoxaparin/Lovenox 30 mg SQ daily (WT < 150 kg, CrCl > 10-29 mL/min) *Enoxaparin/Lovenox 30 mg SQ BID (WT < 150 kg, CrCl > 30 mL/min) AND *Sequential Compression Device (SCD) Further recommendations will be provided depending on the patient's clinical evaluation and follow up studies.
[2018-01-17] MEDS: Budesonide-Formoterol 160/4.5 MCG 6 GM Inhaler INH SCH ×2 (20:06→21:17)
--- NOTE | 2018-01-17 20:32 | CT ---
EXAM DATE: 01/17/2018 7:34 PM EDT AGE/SEX: 62 years / Male INDICATIONS: Left sided leg pain. CLINICAL DATA: This is the patient's initial encounter. Patient reports that signs and symptoms have been present for 1 day and indicates a pain score of 4/10. MEDICAL/SURGICAL HISTORY: Carcinoma, lung. Brain tumor. None. RADIATION DOSE: 18.54 CTDI (mGy) COMPARISON: No prior exams available for comparison. TECHNIQUE: Volumetric scanning was performed using a multi-row detector CT scanner during bolus infu praveen of 99 ml Omnipaque 350 (iohexol) nonionic water-soluble contrast as a single exam dose. The d francesco was post processed with a variety of visualization algorithms including full volume maximum inten sity projection, multi-planar sliding thin slab reformation, curved planar reformation, and surface r endering techniques. Using automated exposure control and adjustment of the mA and/or kV according t o patient size, radiation dose was kept as low as reasonably achievable to obtain optimal diagnostic quality images. DICOM format image data is available electronically for review and comparison. FINDINGS: Abdominal Aorta: Diffuse atherosclerotic changes noted with mild dilatation and calcification. Mural thrombus and fibrin are noted with almost complete occlusion at the level of the distal aorta. Only small linear central channel is present. This has a chronic appearance. This extends down to the bifu rcation.. The proximal celiac and superior mesenteric arteries are patent and normal in diameter. T here are solitary renal arteries identified with mild atherosclerotic change. There is infarction of the inferior aspect of the right kidney questionable age.. Bifurcation: Atherosclerotic changes are present at the bifurcation with moderate to severe narrowin g.. Right Pelvis: The right common iliac, internal iliac, and external iliac vessels demonstrate diffuse atherosclerotic change and mild narrowing.. Left Pelvis: The left common iliac, internal iliac, and external iliac vessels demonstrate diffuse a therosclerotic change and mild narrowing.. Right Thigh: The superficial femoral and profunda vessels demonstrate diffuse atherosclerotic change and mild narrowing.. Left Thigh: Diffuse atherosclerotic changes are present. Right Knee: Diffuse atherosclerotic changes are present. Left Knee: Diffuse atherosclerotic changes are present. Right Leg: Diffuse atherosclerotic changes are present with 2 vessel runoff to the foot. Left Leg: Diffuse atherosclerotic changes are present with 2 vessel runoff to the foot. Multiple low-attenuation lesions are noted throughout the liver which appears cystic. There is a nons pecific, nonobstructive bowel gas pattern noted. CONCLUSION: 1. Infarction of the inferior pole of the right kidney of unknown age. 2. Severe chronic appearing infrarenal atherosclerotic disease causing severe narrowing of the dista l aorta and proximal inflow vessels. Outflow is noted with diffuse atherosclerotic change below the b ifurcation with two-vessel runoff to the feet. Electronically signed by: Eliezer Gilmore MD 01/17/2018 8:30 PM EDT
[2018-01-17 21:20] LABS: Baso # (Auto) 0.1 th/mm3 (0.0-0.2); Baso % (Auto) 0.8 % (0.0-2.0); Eos # (Auto) 0.4 th/mm3 (0.0-0.4); Eos % (Auto) 3.7 % (0.0-4.0); Hematocrit 26.1 % (39.0-51.0); Hemoglobin 8.8 gm/dL (13.0-17.0); Lymph # (Auto) 1.9 th/mm3 (1.0-4.8); Lymph % (Auto) 19.9 % (9.0-44.0); Mean Corpuscular HGB Conc 33.8 % (32.0-36.0); Mean Corpuscular Hemoglobin 31.9 pg (27.0-34.0); Mean Corpuscular Volume 94.1 fL (80.0-100.0); Mean Platelet Volume 8.9 fL (7.0-11.0); Mono # (Auto) 0.9 th/mm3 (0.0-0.9); Mono % (Auto) 9.7 % (0.0-8.0); Neut # (Auto) 6.4 th/mm3 (1.8-7.7); Neut % (Auto) 65.9 % (16.0-70.0); Red Blood Count 2.78 mil/mm3 (4.50-5.90); Red Cell Distribution Width 16.7 % (11.6-17.2); White Blood Count 9.7 th/mm3 (4.0-11.0)
[2018-01-17 21:27] LABS: Platelet Count 18 th/mm3 (150-450)
[2018-01-17 21:58] LABS: Eosinophils 3 % (0-4); Lymphocytes 14 % (9-44); Metamyelocytes 1 % (0-1); Monocytes 4 % (0-8); Myelocytes 2 % (0-0); Platelet Morphology Normal (Normal); RBC Morphology Normal (Normal)
[2018-01-17] MEDS: Temazepam 15 MG Capsule PO PRN (22:31)
--- NOTE | 2018-01-18 02:46 | MB ---
cc: Travon Hernandez MD DATE: 01/17/2018 REASON FOR CONSULTATION: Consult requested by Dr. Mooney for evaluation of severe thrombocytopenia and non-small cell lung cancer. HISTORY OF PRESENT ILLNESS: Audi is a pleasant 62-year-old male. He was diagnosed with non-small cell lung cancer with brain metastasis in 06/2017. He developed loss of peripheral vision in 05/2017. He was evaluated by cattle care worker in 06/2017, who ordered the MRI, which showed a 3 cm mass in the left occipital lobe with vasogenic edema. The patient went to [facility] for further treatment. He had a chest x-ray which showed left upper lobe lung mass. The CAT scan of the chest confirmed a 7.4 cm left upper lobe lung mass. On 07/04/2017, he underwent resection of the brain mass. He had a PET scan which showed high uptake in the left upper lobe lung mass and mild uptake in the mediastinal lymph node. He also underwent stereotactic radiosurgery using Gamma Knife on 07/31/2017. The patient was evaluated by Dr. Dillard at the [facility] who is a medical oncologist. Patient underwent bronchoscopy with biopsy of the left upper lobe lung mass and mediastinal lymph node. The pathology report showed non-small cell lung cancer, poorly differentiated adenocarcinoma. The mediastinal lymph node was negative. The PD-L1 was more than 50% positive. He had a cT3, N0 M1, stage IV non-small cell lung cancer. The patient was recommended to have neoadjuvant/palliative chemotherapy followed by possible surgery. He elected to have chemotherapy locally, and he was referred to me. The patient was started on palliative keytruda, Platinol and Alimta chemotherapy on 09/14/2017. He has tolerated the treatment extremely well. He had either 3 or 4 cycles of chemotherapy, and he had an excellent response. His last chemotherapy was on 11/20/2017. The patient subsequently went back to [facility] for restaging studies. According to the patient, he had a PET scan which was negative for any metastatic disease, but it has improved remarkably compared to the previous PET scan. I do not have those reports available. He also had an MRI of the brain which was reported to be negative. He was advised to undergo lung resection which he agreed with that. On 01/01/2018, he underwent a thoracotomy with left upper lobe and en bloc wedge resection of the left lower lobe. The pathology report showed poorly differentiated adenocarcinoma with good treatment effect. The tumor shows 90% areas of necrosis, 10% viable tumor with associated extensive fibrosis. The PD-L1 is positive more than 50%. The surgical margins were negative. No lymphovascular invasion noted. No visceral and parietal pleural involvement noted. All 7 lymph nodes were negative. The size of the residual tumor was only 0.6 cm. The patient had an excellent response from the neoadjuvant chemo immunotherapy. According to the patient and his , physcians at [facility] did not expected that good results, and everybody was very happy and delighted. He stayed in the hospital until 01/06/2018 and was discharged. The patient stayed in [facility] for a few days. They came back home just 4 days ago. The patient stated that he was sleeping last night, and 2 in the morning, he woke up with severe pain in the right leg. It was so severe that he was starting having some cramps. A few hours later, he was having pain in the left leg also. He asked his to help him to go to the bathroom. He was assisted as he stated that he did not have any strength in his lower legs. After the bowel movement when he was wiping, he did not feel anything there. He said that it was all numb. He was assisted back to the bed. He stated that he went to sleep. When he woke up in the morning, he was able to walk, but when he went to the recliner, he could not get up. He started having similar symptoms of severe pain in both legs. When he was walking, it looked like he was dragging his left leg according to his . She immediately knew there was something wrong. She then called the [facility] where he had the surgery. They advised him to go to the emergency room for further evaluation. The patient was evaluated by Dr. Vik Anderson in the emergency room. Blood test was done, and the patient was found to have severe thrombocytopenia with platelet count of 15. Dr. 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 I did not recommend any platelets transfusion since he was not bleeding. Also, MRI of the thoracic and lumbar spine was ordered. The patient was subsequently admitted to the hospital. I have been consulted for further evaluation. I did review the MRI of the thoracic and lumbar spine. This showed small enhancing nodules along the surface of the spinal cord, the lower thoracic spine, which may represent intradural extramedullary lesions and drop metastasis. I have placed a consult for neurology and neurosurgery for further evaluation. When I walked into the room, Dr. Krishnan, neurologist, was already present and was doing the exam. We both have carefully examined him and find out that both his lower legs were cold. Arterial thrombosis was suspected. CT angiogram of lower legs was ordered to evaluate for arterial thrombosis. The patient's neurological examination was not that impressive according to Dr. Krishnan. He was able to walk. Dr. Krishnan asked him to walk tippy toes, which he was able to do that without having any problems. The patient does not have any more numbness in the perirectal area. He states that he has some pain in both legs, but it is not numb anymore. His had the pathology report of the recent lung surgery, which I have reviewed it. The rest of the review of system is negative. The patient also had Doppler venous ultrasound of both lower legs which showed thrombosis of the great saphenous vein in the right leg. This is superficial thrombophlebitis. PAST MEDICAL HISTORY: Gastroesophageal reflux disease, hypertension. PAST SURGICAL HISTORY: Eardrum repair, vasectomy. He had a left thoracotomy with resection of the left upper lobe and wedge resection of the left lower lobe. He also had craniotomy and resection of the brain metastasis. ALLERGIES: NONE. MEDICATIONS: Please see EMR. FAMILY HISTORY: Both his parents naturally. The patient had 4 sisters, 2 from lung cancer. He does not have any brothers. He has 1 son and 2 daughters, all alive and well. SOCIAL HISTORY: The patient is . He quit smoking recently. He used to smoke 1 pack a day for 40 years. He occasionally drinks alcohol. He is a retired low voltage electrician. PHYSICAL EXAMINATION: GENERAL: A well-developed, well-nourished white male, in no apparent distress. VITAL SIGNS: Temperature 98, heart rate is 70, blood pressure is 163/76. HEAD, EYES, EARS, NOSE, AND THROAT: Pupils equal, round, reactive to light and accommodation, extraocular movements intact. Anicteric. No oral lesions noted. No thrush noted. NECK: Supple. No JVD. No masses noted. LUNGS: Clear. No wheezing, rhonchi, or rales. HEART: Regular rate and rhythm. No murmur heard. ABDOMEN: Soft and nontender. No hepatosplenomegaly. No abnormal bowel sounds. No guarding or rigidity noted. EXTREMITIES: No pedal edema. No cyanosis, no clubbing. NEUROLOGIC: Awake, alert, oriented x 3. Sensory and motor seem to be intact. SKIN: No bruises or petechiae noted. BREASTS: No masses noted. LYMPH NODES: No cervical, supraclavicular, or axillary lymphadenopathy noted. BACK: There is no spinal tenderness noted. ASSESSMENT: 1.Non-small cell lung cancer with brain metastasis, status post craniotomy with resection of the isolated brain metastasis followed by stereotactic radiosurgery with Gamma Knife. Then, he had 3-4 cycles of preoperative immunochemotherapy with keytruda, Platinol and Alimta. He underwent thoracotomy and resection of the left upper lobe and wedge resection of the left lower lobe on 01/01/2018. This showed an excellent response. He had only minimal residual disease of 0.6 cm. All 7 lymph nodes were negative. The margins were negative. 2. 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 Certainly, carcinomatous meningitis cannot be ruled out at this time. 3. Severe thrombocytopenia. 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 The patient is not bleeding with the present thrombocytopenia. 4. Cold lower legs. This is most likely associated with severe peripheral vascular disease or arterial thrombosis. 5. Right saphenous vein thrombosis. There is no evidence of deep vein thrombosis. 6. No deep vein thrombosis of both upper and lower extremities. PLAN: I have reviewed his available records, and I had an extensive discussion with the patient and his regarding the severe thrombocytopenia and possible drop metastasis to thoracic spine. I have recommended to get a neurology consult as well as neurosurgical consult for further evaluation. The patient could have possible cauda equina syndrome or carcinomatous meningitis. The spinal tap cannot be done at this time due to the severe thrombocytopenia. I had an extensive discussion with Dr. Krishnan who had ordered the MRI of the brain and cervical spine. He also has ordered CT angiogram of both lower legs for evaluation of either peripheral vascular disease or arterial thrombosis. A neurosurgical consult is still pending. After the neurosurgical consultation, we will consult radiation oncology for evaluation of possible radiation treatment. I do not recommend any blood or platelet transfusion at this time. He is not a candidate for any anticoagulation at this time either. The HIT has been ordered. The results are still pending. If the HIT result comes back positive, then will start argatroban. We will order serotonin release assay as well for confirmation of HIT. The patient stated that he had a brief period of atrial fibrillation right after the recent surgery. He was getting subcutaneous heparin 3 times a day throughout his admission in the hospital. He was admitted from 01/01/2018 through 01/06/2018. He said that he was converted to normal sinus rhythm, and he was not discharged on any anticoagulation. We also discussed the surgical pathology report which showed an excellent response. He has only minimal residual disease of 0.6 mm poorly differentiated adenocarcinoma. All 7 lymph nodes were negative. Margins were negative. We discussed the possibility of treating him with Keytruda once he improves. I will discuss the case with his medical oncologist, Dr. Dillard, at the [facility]. The patient and his both have asked several questions, and these were answered to their satisfaction. Further recommendations based on his hospital stay. Thank you for asking my opinion. MD PARKER Mullen/marce , 11:49 PM , 12:29 AM VINI
[2018-01-18 03:46] LABS: Bilirubin,Urine Negative (Negative); Clarity,Urine Clear (Clear); Color,Urine Yellow (Yellw/Straw); Glucose,Urine (UA) Negative (Negative); Leukocyte Esterase,Urine Negative (Negative); Mucus,Urine Few /lpf (Occasional); Nitrite,Urine Negative (Negative); Squamous Epithelial Cell,Urine <1 /hpf (0-5); Urobilinogen,Urine 4 or Greater mg/dL (Less than 2)
[2018-01-18] MEDS: Acetaminophen 500 MG Tablet PO SCH ×3 (05:40→21:01)
[2018-01-18] MEDS: Morphine Inj 4 MG/ML Vial IV.PUSH PRN (05:40)
[2018-01-18 07:14] LABS: Hematocrit 26.7 % (39.0-51.0); Hemoglobin 9.1 gm/dL (13.0-17.0); Mean Corpuscular HGB Conc 34.3 % (32.0-36.0); Mean Corpuscular Hemoglobin 32.3 pg (27.0-34.0); Mean Corpuscular Volume 94.2 fL (80.0-100.0); Mean Platelet Volume 9.7 fL (7.0-11.0); Red Blood Count 2.83 mil/mm3 (4.50-5.90); Red Cell Distribution Width 16.7 % (11.6-17.2); White Blood Count 8.8 th/mm3 (4.0-11.0)
[2018-01-18 07:25] LABS: Platelet Count 19 th/mm3 (150-450)
[2018-01-18 07:31] LABS: Calcium 7.9 mg/dL (8.5-10.1); Carbon Dioxide 25.1 meq/L (21.0-32.0); Potassium 4.1 meq/L (3.5-5.1)
--- NOTE | 2018-01-18 08:02 | P.PNNEU ---
Subjective Subjective Comments: had pain again overnoc better now Active Medications: Active Medications Acetaminophen (Tylenol) 500 mg PO Q8HR [facility] Last Admin: 01/18/18 05:40 Dose: 500 mg Acetaminophen (Tylenol) 650 mg PO Q6HR PRN PRN Reason: PAIN SCALE 1 TO 2 Al Hydroxide/Mg Hydroxide (Milk Of Magnesia Liq) 30 ml PO Q12H PRN PRN Reason: Mild Constipation Bisacodyl (Dulcolax Supp) 10 mg RECTAL DAILY PRN PRN Reason: SEVERE CONSITIPATION Budesonide/Formoterol Fumarate (Symbicort 160/4.5 Mcg Inh) 2 puff INH BID [facility] Last Admin: 01/17/18 21:17 Dose: 2 puff Folic Acid (Folic Acid) 1 mg PO DAILY [facility] Last Admin: 01/17/18 14:04 Dose: 1 mg Sodium Chloride (Ns Inj) 1,000 mls @ 70 mls/hr IV.CONT .[id number] [facility] Last Admin: 01/17/18 18:26 Dose: 70 mls/hr Ibuprofen (Advil) 800 mg PO TID [facility] Last Admin: 01/17/18 18:24 Dose: 800 mg Lactulose (Lactulose Liq) 30 ml PO DAILY PRN PRN Reason: SEVERE CONSITIPATION Metoprolol Tartrate (Lopressor) 25 mg PO BID [facility] Last Admin: 01/17/18 21:17 Dose: 25 mg Morphine Sulfate (Morphine Inj) 4 mg IV.PUSH Q3H PRN PRN Reason: BREAKTHROUGH PAIN Last Admin: 01/18/18 05:40 Dose: 4 mg Naloxone HCl (Narcan Inj) 0.4 mg IV.PUSH UNSCH PRN PRN Reason: SEE LABEL COMMENTS Oxycodone HCl (Roxicodone) 10 mg PO Q4H PRN PRN Reason: PAIN SCALE 6 TO 10 Last Admin: 01/18/18 03:22 Dose: 10 mg Oxycodone/Acetaminophen (Percocet 5/325 Mg) 1 tab PO Q6H PRN PRN Reason: PAIN SCALE 3 TO 5 Pantoprazole Sodium (Protonix) 40 mg PO DAILY [facility] Last Admin: 01/17/18 14:04 Dose: 40 mg Sennosides (Senokot) 17.2 mg PO Q12H PRN PRN Reason: Moderate Constipation Sodium Chloride (Ns Flush) 2 ml IV.FLUSH PRN PRN PRN Reason: FLUSH AFTER USING IV ACCESS Last Admin: 01/17/18 23:38 Dose: 2 ml Temazepam (Restoril) 15 mg PO HS PRN PRN Reason: INSOMNIA Last Admin: 01/17/18 22:31 Dose: 15 mg Allergies/Adverse Reactions: Allergies Allergy/AdvReac Type Severity Reaction Status Date / Time No Known Allergies Allergy Unverified 01/17/18 11:06 Physical Exam Vital signs: Vital Signs 01/17/18 10:20 01/17/18 11:03 01/17/18 13:00 Temperature 97.9 F Pulse Rate 67 62 61 Respiratory Rate 19 16 24 Blood Pressure 145/70 H 159/69 H 175/74 H Pulse Oximetry 99 100 98 01/17/18 16:52 01/17/18 20:00 01/17/18 20:33 Temperature 98.0 F 98.0 F Pulse Rate 63 70 70 Respiratory Rate 20 18 Blood Pressure 172/74 H 163/76 H Pulse Oximetry 95 95 01/18/18 00:00 01/18/18 04:00 Temperature 98.0 F 98.3 F Pulse Rate 76 75 Respiratory Rate 19 19 Blood Pressure 160/75 H 159/72 H Pulse Oximetry 94 L 97 Intake & Output 01/17/18 01/18/18 01/18/18 18:59 06:59 18:59 Intake Total 240 / 240 Output Total 250 / 250 700 / 700 Balance -250 / -250 -460 / -460 Weight 68.1 kg 69.1 kg Intake: Oral 240 / 240 Output: Urine 250 / 250 700 / 700 Other: Weight On Admission 68.1 kg Narrative: moving ble well Objective Laboratory Results - last 24 hr 01/17/18 01/17/18 01/17/18 11:45 11:45 11:45 WBC 10.6 RBC 2.85 L Hgb 9.3 L Hct 27.2 L MCV 95.2 MCH 32.6 MCHC 34.2 RDW 16.5 Plt Count 15 L* MPV 9.9 Prelim Diff (Auto) Slide review pending Neut % (Auto) 64.0 Lymph % (Auto) 19.0 [place] % (Auto) 12.6 H Eos % (Auto) 3.5 Baso % (Auto) 0.9 Neut # (Auto) 6.8 Lymph # (Auto) 2.0 [place] # (Auto) 1.3 H Eos # (Auto) 0.4 Baso # (Auto) 0.1 WBC Differential . Diff Scan Auto diff confirmed Seg Neuts % (Manual) Band Neuts % (Manual) Lymphocytes % (Manual) Monocytes % (Manual) Eosinophils % (Manual) Metamyelocytes % (Man) Myelocytes % (Man) Abs Neuts (Manual) Differential Comment . Platelet Estimate Rare L Platelet Morphology Normal RBC Morphology PT 12.7 H INR 1.3 APTT 25.2 Sodium 144 Potassium 4.3 Chloride 111 H Carbon Dioxide 25.4 Anion Gap 8 BUN 19 H Creatinine 1.20 Estimated GFR 61 L Random Glucose 82 Calcium 8.6 Total Bilirubin 0.5 AST 29 ALT 22 Alkaline Phosphatase 63 Total Protein 6.2 L Albumin 2.8 L Vitamin B12 Urine Color Urine Clarity Urine pH Ur Specific [place] Urine Protein Urine Glucose (UA) Urine Ketones Urine Occult Blood Urine Nitrate Urine Bilirubin Urine Urobilinogen Ur Leukocyte Esterase Urine RBC Urine WBC Ur Squamous Epith Cells Urine Mucus Micro UA Comment Ur Microscopic Review Urine Culture Comments Blood Type Blood Type Recheck Antibody Screen 01/17/18 01/17/18 01/17/18 13:05 20:59 20:59 WBC 9.7 RBC 2.78 L Hgb 8.8 L Hct 26.1 L MCV 94.1 MCH 31.9 MCHC 33.8 RDW 16.7 Plt Count 18 L* MPV 8.9 Prelim Diff (Auto) Slide review pending Neut % (Auto) 65.9 Lymph % (Auto) 19.9 [place] % (Auto) 9.7 H Eos % (Auto) 3.7 Baso % (Auto) 0.8 Neut # (Auto) 6.4 Lymph # (Auto) 1.9 [place] # (Auto) 0.9 Eos # (Auto) 0.4 Baso # (Auto) 0.1 WBC Differential Manual diff final Diff Scan Seg Neuts % (Manual) 73 H Band Neuts % (Manual) 3 Lymphocytes % (Manual) 14 Monocytes % (Manual) 4 Eosinophils % (Manual) 3 Metamyelocytes % (Man) 1 Myelocytes % (Man) 2 H Abs Neuts (Manual) 7.7 Differential Comment . Platelet Estimate Low L Platelet Morphology Normal RBC Morphology Normal PT INR APTT Sodium Potassium Chloride Carbon Dioxide Anion Gap BUN Creatinine Estimated GFR Random Glucose Calcium Total Bilirubin AST ALT Alkaline Phosphatase Total Protein Albumin Vitamin B12 720 Urine Color Urine Clarity Urine pH Ur Specific [place] Urine Protein Urine Glucose (UA) Urine Ketones Urine Occult Blood Urine Nitrate Urine Bilirubin Urine Urobilinogen Ur Leukocyte Esterase Urine RBC Urine WBC Ur Squamous Epith Cells Urine Mucus Micro UA Comment Ur Microscopic Review Urine Culture Comments Blood Type O Positive Blood Type Recheck Required Antibody Screen Negative 01/18/18 01/18/18 01/18/18 02:56 05:41 05:41 WBC 8.8 RBC 2.83 L Hgb 9.1 L Hct 26.7 L MCV 94.2 MCH 32.3 MCHC 34.3 RDW 16.7 Plt Count 19 L* MPV 9.7 Prelim Diff (Auto) Neut % (Auto) Lymph % (Auto) [place] % (Auto) Eos % (Auto) Baso % (Auto) Neut # (Auto) Lymph # (Auto) [place] # (Auto) Eos # (Auto) Baso # (Auto) WBC Differential Diff Scan Seg Neuts % (Manual) Band Neuts % (Manual) Lymphocytes % (Manual) Monocytes % (Manual) Eosinophils % (Manual) Metamyelocytes % (Man) Myelocytes % (Man) Abs Neuts (Manual) Differential Comment Platelet Estimate Platelet Morphology RBC Morphology PT INR APTT Sodium 145 Potassium 4.1 Chloride 110 H Carbon Dioxide 25.1 Anion Gap 10 BUN 18 Creatinine 1.43 H Estimated GFR 50 L Random Glucose 95 Calcium 7.9 L Total Bilirubin AST ALT Alkaline Phosphatase Total Protein Albumin Vitamin B12 Urine Color Yellow Urine Clarity Clear Urine pH 5.0 Ur Specific [place] Greater than 1.060 H Urine Protein 30 H Urine Glucose (UA) Negative Urine Ketones Trace H Urine Occult Blood Moderate H Urine Nitrate Negative Urine Bilirubin Negative Urine Urobilinogen 4 or greater Ur Leukocyte Esterase Negative Urine RBC 3 Urine WBC Less than 1 Ur Squamous Epith Cells <1 Urine Mucus Few H Micro UA Comment Culture not ind Ur Microscopic Review Not Reportable Urine Culture Comments Culture not ind Blood Type Blood Type Recheck Antibody Screen Review/Management - Review/Management Plan: imp cta showed some blockages but does have flow in ble arterial dr hannah not convinced the thoracic abn is met could be vascular? i dw neurorad check cpk labs hit rx per dr pablo coronaib recently fu echo some infarct in kidney ? needs anticoag defer to heme oob fu mri fdaia and c spine inc neurontin eeg fu
[2018-01-18] MEDS: Folic Acid 1 MG Tablet PO SCH (08:24)
[2018-01-18] MEDS: Metoprolol Tartrate 25 MG Tablet PO SCH ×2 (08:24→21:02)
[2018-01-18] MEDS: Budesonide-Formoterol 160/4.5 MCG 6 GM Inhaler INH SCH ×2 (08:27→21:02)
[2018-01-18] MEDS: Sod Chloride 0.9% Inj 1,000 ML IV.CONT SCH (09:47)
[2018-01-18] MEDS: Ibuprofen 200 MG Tablet PO SCH ×3 (09:48→17:49)
[2018-01-18] MEDS: Gabapentin 100 MG Capsule PO SCH (09:48)
--- NOTE | 2018-01-18 09:51 | P.HPFP ---
History of Present Illness Primary Care Physician: Crescencio Kelly MD History of Present Illness: 62 y/o M, woke up the night before admission with severe pain in lower extremities bilaterally. The pain was so bad it woke him up at 2AM . Pt states it felt like terrible muscle cramps and also a "pins and needles" sensation in both legs and feet bilaterally. He woke up his and said he didn't think he could make it to the bathroom. Even with the walker his legs "could not work" and he fell coming back from the bathroom. He continued to have pain overnight despite percocet and leg massage. When he woke up the morning of admission he felt OK, was able to walk, then it started to hurt again. He sat down in the recliner and the pain returned and he was unable to get back out of the chair. He had to crawl to his walker. They called their Nurse Practitioner from the recent surgery, and they were told to come into the ER for a venous duplex US for blood clots. Pt has been constipated from his pain medication post-op, but had a BM yesterday morning. No changes in urination. In ROS; he does feel numbness/paraesthesias around his rectum (could not feel wiping his bottom last night). He does not think he had any paraesthesias during the BM this morning. This patient had chemo including cisplatin through 4 rounds he ended his last chemo at the end of November. He when asked about numbness paresthesias or some peripheral neuropathy he stated that he has had some numbness on the dorsum of his feet bilaterally and he also has had some numbness "like they fell asleep" in the back of his calves extending up to the knee bilaterally. There is severe pain that he would get would come suddenly and would affect the areas that already had some numbness. Since being in the hospital he has continued to have some episodes of this pain and required morphine to get rid of it. - Diagnosis (1) Pain in both lower legs (2) Metastatic primary lung cancer (3) Lower extremity weakness (4) Thrombosis of right saphenous vein (5) Thrombocytopenia (6) Anemia (7) Atrial fibrillation (8) Nutrition, metabolism, and development symptoms Inpatient Certification: I certify that the inpatient services were ordered in accordance with Medicare regulations governing the order. This includes certification that hospital inpatient services are reasonable and necessary and in the case of services not specified as inpatient-only under 42 CFR 419.22(n), that they are appropriately provided as inpatient services in accordance to with the 2-midnight benchmark under 43 CFR 412.3(e) Estimated Total Length of Stay (Days): 2 Plans for Post Hospital Care: Home Review of Systems other (see ROS from yesterday) PMFSH - History History Provided By: Patient - Medical History Medical History: Medical History (Last Reviewed 01/18/18 @ 08:41 by Penny Field) Brain tumor FHx: chemotherapy Lung cancer Primary cancer of left lower lobe of lung - Surgical History Surgical History: Surgical History (Last Reviewed 01/18/18 @ 08:41 by Penny Field) History of tympanoplasty - Family History Family History: Family History (Last Reviewed 01/17/18 @ 19:36 by Antwon Blanton MD) Other Cancer - Social History I have reviewed the patient's Social History: Yes - Tobacco History Second Hand Smoke Exposure: No Tobacco Use In Past 30 Days: No Smoking Status: Former smoker Tobacco Type: Cigarettes Packs Per Day: 2 Years Smoked: 45 Smoking End Date: 08/07/17 - Alcohol History How Often Do You Have a Drink Containing Alcohol: 2 to 3 times a week - Substance Use History Substance History: No History of Abuse - Travel History History of Recent Travel: No Recent Travel in the [place] Within the Last 8 Weeks: No Recent Travel Out of the Country Within the Last 8 Weeks: No - Immunization History Tetanus Immunization: Unsure Hx Influenza Vaccine This Season: No Medications and Allergies Active Medications: Active Medications Acetaminophen (Tylenol) 500 mg PO Q8HR [facility] Last Admin: 01/18/18 05:40 Dose: 500 mg Acetaminophen (Tylenol) 650 mg PO Q6HR PRN PRN Reason: PAIN SCALE 1 TO 2 Al Hydroxide/Mg Hydroxide (Milk Of Magnesia Liq) 30 ml PO Q12H PRN PRN Reason: Mild Constipation Bisacodyl (Dulcolax Supp) 10 mg RECTAL DAILY PRN PRN Reason: SEVERE CONSITIPATION Budesonide/Formoterol Fumarate (Symbicort 160/4.5 Mcg Inh) 2 puff INH BID [facility] Last Admin: 01/18/18 08:27 Dose: 2 puff Clonidine HCl (Catapres) 0.1 mg PO Q6H PRN PRN Reason: SEE LABEL COMMENTS Folic Acid (Folic Acid) 1 mg PO DAILY [facility] Last Admin: 01/18/18 08:24 Dose: 1 mg Gabapentin (Neurontin) 300 mg PO DAILY [facility] Sodium Chloride (Ns Inj) 1,000 mls @ 70 mls/hr IV.CONT .[id number] [facility] Last Admin: 01/17/18 18:26 Dose: 70 mls/hr Ibuprofen (Advil) 800 mg PO TID [facility] Last Admin: 01/17/18 18:24 Dose: 800 mg Lactulose (Lactulose Liq) 30 ml PO DAILY PRN PRN Reason: SEVERE CONSITIPATION Metoprolol Tartrate (Lopressor) 25 mg PO BID [facility] Last Admin: 01/18/18 08:24 Dose: 25 mg Morphine Sulfate (Morphine Inj) 4 mg IV.PUSH Q3H PRN PRN Reason: BREAKTHROUGH PAIN Last Admin: 01/18/18 05:40 Dose: 4 mg Naloxone HCl (Narcan Inj) 0.4 mg IV.PUSH UNSCH PRN PRN Reason: SEE LABEL COMMENTS Oxycodone HCl (Roxicodone) 10 mg PO Q4H PRN PRN Reason: PAIN SCALE 6 TO 10 Last Admin: 01/18/18 03:22 Dose: 10 mg Oxycodone/Acetaminophen (Percocet 5/325 Mg) 1 tab PO Q6H PRN PRN Reason: PAIN SCALE 3 TO 5 Pantoprazole Sodium (Protonix) 40 mg PO DAILY [facility] Last Admin: 01/18/18 08:24 Dose: 40 mg Sennosides (Senokot) 17.2 mg PO Q12H PRN PRN Reason: Moderate Constipation Sodium Chloride (Ns Flush) 2 ml IV.FLUSH PRN PRN PRN Reason: FLUSH AFTER USING IV ACCESS Last Admin: 01/17/18 23:38 Dose: 2 ml Temazepam (Restoril) 15 mg PO HS PRN PRN Reason: INSOMNIA Last Admin: 01/17/18 22:31 Dose: 15 mg Allergies Allergy/AdvReac Type Severity Reaction Status Date / Time No Known Allergies Allergy Unverified 01/17/18 11:06 Home Medications Medication Instructions Recorded Confirmed Type acetaminophen 500 mg PO Q8HR 01/17/18 01/17/18 History budesonide-formoterol [Symbicort] 2 puff INHALATION BID 01/17/18 01/17/18 History folic acid 1 mg PO DAILY 01/17/18 01/17/18 History gabapentin 100 mg PO DAILY 01/17/18 01/17/18 History ibuprofen [Motrin IB] 800 mg PO TID 01/17/18 01/17/18 History [id number]-ast 1 cap PO DAILY 01/17/18 01/17/18 History [krill oil] metoprolol tartrate 25 mg PO BID 01/17/18 01/17/18 History multivitamin 1 tab PO DAILY 01/17/18 01/17/18 History omeprazole 40 mg PO DAILY 01/17/18 01/17/18 History oxycodone 10 mg PO Q4-6H 01/17/18 01/17/18 History tramadol 50 mg PO Q6H 01/17/18 01/17/18 History Exam Vital signs: Vital Signs 01/17/18 10:20 01/17/18 11:03 01/17/18 13:00 Temperature 97.9 F Pulse Rate 67 62 61 Respiratory Rate 19 16 24 Blood Pressure 145/70 H 159/69 H 175/74 H Pulse Oximetry 99 100 98 01/17/18 16:52 01/17/18 20:00 01/17/18 20:33 Temperature 98.0 F 98.0 F Pulse Rate 63 70 70 Respiratory Rate 20 18 Blood Pressure 172/74 H 163/76 H Pulse Oximetry 95 95 01/18/18 00:00 01/18/18 04:00 01/18/18 08:00 Temperature 98.0 F 98.3 F 98.0 F Pulse Rate 76 75 70 Respiratory Rate 19 19 18 Blood Pressure 160/75 H 159/72 H 164/76 H Pulse Oximetry 94 L 97 96 Intake & Output 01/17/18 01/18/18 01/18/18 18:59 06:59 18:59 Intake Total 240 / 240 Output Total 250 / 250 700 / 700 Balance -250 / -250 -460 / -460 Weight 68.1 kg 69.1 kg Intake: Oral 240 / 240 Output: Urine 250 / 250 700 / 700 Other: Weight On Admission 68.1 kg Narrative: GENERAL: Pleasant alert and conversant gentleman lying in bed without any pain this morning. SKIN: Warm and dry. HEAD: Atraumatic. Normocephalic. EYES: Pupils equal and round. No scleral icterus. No injection or drainage. ENT: No nasal bleeding or discharge. NECK: Trachea midline. No JVD. CARDIOVASCULAR: Regular rate and rhythm. RESPIRATORY: No accessory muscle use. Clear to auscultation. Breath sounds equal bilaterally. GASTROINTESTINAL: Abdomen soft, non-tender, nondistended. Hepatic and splenic margins not palpable. MUSCULOSKELETAL: Extremities without clubbing, cyanosis, or edema. No obvious deformities. NEUROLOGICAL: Awake and alert. No obvious cranial nerve deficits. Motor grossly within normal limits. Moves all extremities. Normal speech. He reports numbness on the top of his feet and also the back of his knees into his calves bilaterally. He does not have any pain right now but he reports that these are the areas of his pain, the same areas where he has the numbness PSYCHIATRIC: Appropriate mood and affect; insight and judgment normal. Results - Labs Result diagrams: 01/18/18 05:41 01/18/18 05:41 Abnormal lab results 01/17/18 01/17/18 01/17/18 Range/Units 11:45 11:45 11:45 RBC 2.85 L (4.50-5.90) mil/mm3 Hgb 9.3 L (13.0-17.0) gm/dL Hct 27.2 L (39.0-51.0) % Plt Count 15 L* (150-450) th/mm3 [place] % (Auto) 12.6 H (0.0-8.0) % [place] # (Auto) 1.3 H (0.0-0.9) th/mm3 Seg Neuts % (Manual) (16-70) % Myelocytes % (Man) (0-0) % Platelet Estimate Rare L (Normal) PT 12.7 H (9.8-11.6) sec Chloride 111 H (98-107) meq/L BUN 19 H (7-18) mg/dL Creatinine (0.60-1.30) mg/dL Estimated GFR 61 L (>89) mL/min Calcium (8.5-10.1) mg/dL Total Protein 6.2 L (6.4-8.2) g/dL Albumin 2.8 L (3.4-5.0) g/dL Ur Specific [place] (1.002-1.035) Urine Protein (Neg-Trace) mg/dL Urine Ketones (Negative) mg/dL Urine Occult Blood (Negative) Urine Mucus (Occasional) /lpf 01/17/18 01/18/18 01/18/18 Range/Units 20:59 02:56 05:41 RBC 2.78 L 2.83 L (4.50-5.90) mil/mm3 Hgb 8.8 L 9.1 L (13.0-17.0) gm/dL Hct 26.1 L 26.7 L (39.0-51.0) % Plt Count 18 L* 19 L* (150-450) th/mm3 [place] % (Auto) 9.7 H (0.0-8.0) % [place] # (Auto) (0.0-0.9) th/mm3 Seg Neuts % (Manual) 73 H (16-70) % Myelocytes % (Man) 2 H (0-0) % Platelet Estimate Low L (Normal) PT (9.8-11.6) sec Chloride (98-107) meq/L BUN (7-18) mg/dL Creatinine (0.60-1.30) mg/dL Estimated GFR (>89) mL/min Calcium (8.5-10.1) mg/dL Total Protein (6.4-8.2) g/dL Albumin (3.4-5.0) g/dL Ur Specific [place] Greater than 1.060 H (1.002-1.035) Urine Protein 30 H (Neg-Trace) mg/dL Urine Ketones Trace H (Negative) mg/dL Urine Occult Blood Moderate H (Negative) Urine Mucus Few H (Occasional) /lpf 01/18/18 Range/Units 05:41 RBC (4.50-5.90) mil/mm3 Hgb (13.0-17.0) gm/dL Hct (39.0-51.0) % Plt Count (150-450) th/mm3 [place] % (Auto) (0.0-8.0) % [place] # (Auto) (0.0-0.9) th/mm3 Seg Neuts % (Manual) (16-70) % Myelocytes % (Man) (0-0) % Platelet Estimate (Normal) PT (9.8-11.6) sec Chloride 110 H (98-107) meq/L BUN (7-18) mg/dL Creatinine 1.43 H (0.60-1.30) mg/dL Estimated GFR 50 L (>89) mL/min Calcium 7.9 L (8.5-10.1) mg/dL Total Protein (6.4-8.2) g/dL Albumin (3.4-5.0) g/dL Ur Specific [place] (1.002-1.035) Urine Protein (Neg-Trace) mg/dL Urine Ketones (Negative) mg/dL Urine Occult Blood (Negative) Urine Mucus (Occasional) /lpf Short CBC 01/17/18 01/17/18 01/18/18 Range/Units 11:45 20:59 05:41 WBC 10.6 9.7 8.8 (4.0-11.0) th/mm3 Hgb 9.3 L 8.8 L 9.1 L (13.0-17.0) gm/dL Hct 27.2 L 26.1 L 26.7 L (39.0-51.0) % Plt Count 15 L* 18 L* 19 L* (150-450) th/mm3 BMP 01/17/18 01/18/18 11:45 05:41 Sodium 144 145 Potassium 4.3 4.1 Chloride 111 H 110 H Carbon Dioxide 25.4 25.1 BUN 19 H 18 Creatinine 1.20 1.43 H Calcium 8.6 7.9 L Liver Function 01/17/18 Range/Units 11:45 Total Bilirubin 0.5 (0.2-1.0) mg/dL AST 29 (15-37) U/L ALT 22 (12-78) U/L Alkaline Phosphatase 63 (45-117) U/L Albumin 2.8 L (3.4-5.0) g/dL Urine 01/18/18 Range/Units 02:56 Urine Color Yellow (Yellw/Straw) Urine Clarity Clear (Clear) Urine pH 5.0 (5.0-8.5) Ur Specific [place] Greater than 1.060 H (1.002-1.035) Urine Protein 30 H (Neg-Trace) mg/dL Urine Glucose (UA) Negative (Negative) mg/dL - Imaging Impressions Chest X-Ray 01/17/18 00:00 CONCLUSION: Left lung cavities with air-fluid levels which may be postsurgical Status post left thoracotomy Pleural-parenchymal scarring right upper lobe Venous Doppler Study 01/17/18 00:00 CONCLUSION: 1. The study is negative for bilateral upper extremity deep venous thrombosis. Venous Doppler Study 01/17/18 11:22 CONCLUSION: 1. Occlusive thrombus is seen in the greater saphenous vein on the right. Lumbar Spine MRI 01/17/18 12:34 CONCLUSION: 1. Unremarkable appearance of the lumbar spine. 2. No evidence of bony or soft tissue metastases. Thoracic Spine MRI 01/17/18 12:34 CONCLUSION: 1. Small enhancing nodules identified along the surface of the spinal cord the lower thoracic spine which may represent intradural extra medullary lesions and drop metastases. 2. Postthoracotomy changes identified in the left lung with large air-fluid levels. 3. No evidence of bony metastases. Aorta w/Runoff CTA 01/17/18 17:39 CONCLUSION: 1. Infarction of the inferior pole of the right kidney of unknown age. 2. Severe chronic appearing infrarenal atherosclerotic disease causing severe narrowing of the distal aorta and proximal inflow vessels. Outflow is noted with diffuse atherosclerotic change below the bifurcation with two-vessel runoff to the feet. Caprini VTE Risk Assessment Caprini VTE Risk Assessment: No/Low Risk (score <= 1) Caprini Risk Assessment Model: Point Value = 1 Point Value = 2 Point Value = 3 Point Value = 5 Age 41-60 Minor surgery BMI > 25 kg/m2 Swollen legs Varicose veins or History of unexplained or recurrent spontaneous Oral contraceptives or hormone replacement Sepsis (< 1 month) Serious lung disease, including pneumonia (< 1 month) Abnormal pulmonary function Acute myocardial infarction Congestive heart failure (< 1 month) History of inflammatory bowel disease Medical patient at bed rest Age 61-74 Arthroscopic surgery Major open surgery (> 45 min) Laparoscopic surgery (> 45 min) Malignancy Confined to bed (> 72 hours) Immobilizing plaster cast Central venous access Age >= 75 History of VTE Family history of VTE Factor V Leiden Prothrombin [id number] Lupus anticoagulant Anticardiolipin antibodies Elevated serum homocysteine Heparin-induced thrombocytopenia Other congenital or acquired thrombophilia Stroke (< 1 month) Elective arthroplasty Hip, pelvis, or leg fracture Acute spinal cord injury (< 1 month) Prophylaxis Regimen: Total Risk Factor Score Risk Level Prophylaxis Regimen 0-1 Low Early ambulation 2 Moderate Order ONE of the following: *Sequential Compression Device (SCD) *Heparin 5000 units SQ BID 3-4 Higher Order ONE of the following medications: *Heparin 5000 units SQ TID *Enoxaparin/Lovenox 40 mg SQ daily (WT < 150 kg, CrCl > 30 mL/min) *Enoxaparin/Lovenox 30 mg SQ daily (WT < 150 kg, CrCl > 10-29 mL/min) *Enoxaparin/Lovenox 30 mg SQ BID (WT < 150 kg, CrCl > 30 mL/min) AND/OR *Sequential Compression Device (SCD) 5 or more Highest Order ONE of the following medications: *Heparin 5000 units SQ TID (Preferred with Epidurals) *Enoxaparin/Lovenox 40 mg SQ daily (WT < 150 kg, CrCl > 30 mL/min) *Enoxaparin/Lovenox 30 mg SQ daily (WT < 150 kg, CrCl > 10-29 mL/min) *Enoxaparin/Lovenox 30 mg SQ BID (WT < 150 kg, CrCl > 30 mL/min) AND *Sequential Compression Device (SCD) Assessment and Plan - Assessment (1) Pain in both lower legs Code(s): M79.661 - Pain in right lower leg; M79.662 - Pain in left lower leg Status: Acute Plan: His pain is in an unusual distribution. He reports both legs are numb "like they fell asleep" bilaterally. Sometimes chemotherapy can cause neuropathies that are unusual in distribution or timing. It is possible that he has some effects from his cisplatin chemo. Perhaps he had numbness to begin with after the chemo and then only now is developing pain in those areas. Neurology is increasing his gabapentin which I totally agree with. For now the patient and his do not want to pursue the areas of his thoracic spine that could be possibly metastases. They feel that because his PET scan was fine in November that they will go back to their oncologist and discuss if anything else needs to be done. There is a consideration for peripheral arterial disease. He does sound from the history like he has this. His stated that when he would walk a distance that his have would begin to hurt bilaterally that he would sit down on a bench and within a short period of time his legs to feel better and then he could resume his walking. However this unusual pain and numbness does not fit peripheral arterial disease at this time though of course that is something that needs to be considered. (2) Metastatic primary lung cancer Code(s): C34.90 - Malignant neoplasm of unspecified part of unspecified bronchus or lung Status: Acute Plan: Status post chemo in November, status post lobectomy Recent PET scans negative Follow-up MRI of spine to assess for lesions management as per his private oncologist (3) Lower extremity weakness Code(s): R29.898 - Other symptoms and signs involving the musculoskeletal system Status: Acute Plan: Due to spinal lesion versus epidural abscess versus superficial thrombophlebitis versus progressing DVT Follow-up MRI spine Follow-up clinical progress PT evaluation Can see if he would want to go to rehab versus if he would need home health care or other physical therapy. He has had surgery recently he has had chemo he had a lot of the treatments and may very well need some strengthening at this time. (4) Thrombosis of right saphenous vein Code(s): I82.811 - Embolism and thrombosis of superficial veins of right lower extremity Status: Acute Plan: Doses of lower extremity superficial vein, generally benign and self-limited however a larger vein is involved in this case -Caution with propagation into the DVT system and PE possibility -Likely due to abnormal coagulation at this time -Caution with signs of propagation, may repeat duplex ultrasound with further clinical signs Elevation Warm and cool compresses Compression stockings Pain management Would leave up to oncology with his low platelets whether he should go on any sort of anticoagulation and when. (5) Thrombocytopenia Code(s): D69.6 - Thrombocytopenia, unspecified Status: Acute Plan: Postop day #12 from lobectomy, status post heparin 9 days ago Refer to private price checker Dr. Hernandez for further recommendations Possible heparin-induced thrombocytopenia versus other etiology No transfusion recommended at this time due to possibility of further coagulation Hold all heparin forms Follow-up ultrasounds upper extremities to screen for DVT Follow-up recommendations of price checker; may want to start an nonheparin anticoagulant Will not transfuse platelets unless bleeding, follow-up repeat CBC at 6 PM (6) Anemia Code(s): D64.9 - Anemia, unspecified Status: Acute Plan: No history of anemia per patient Likely chronic anemia, screen for acute anemia, patient at high risk for bleeding due to thrombocytopenia Hemoglobin 9.3, follow-up CBC at 6 PM Unsure of the exact cause he did have chemotherapy 6 weeks ago and should be improving he could have anemia of chronic disease based on having his lung cancer plus he had surgery and may have had blood loss during the surgery. (7) Atrial fibrillation Code(s): I48.91 - Unspecified atrial fibrillation Status: Acute Plan: Continue telemetry Continue metoprolol Watch for arrhythmias (8) Nutrition, metabolism, and development symptoms Code(s): R63.8 - Other symptoms and signs concerning food and fluid intake Status: Acute Plan: Fluids: Can Hep-Lock IV Electrolytes: Follow-up BMP and replete as needed Nutrition: Regular diet DVT prophylaxis: Holding all heparin products, SCDs only H&P: Quality - VTE Deep Vein Thrombosis/Pulmonary Embolism Present on Admission: No (3) Lower extremity weakness Qualifiers: Laterality: bilateral Qualified Code(s): R29.898 - Other symptoms and signs involving the musculoskeletal system (6) Anemia Qualifiers: Anemia type: bone marrow failure Bone marrow failure anemia type: pancytopenia, antineoplastic chemotherapy-induced Qualified Code(s): D61.810 - Antineoplastic chemotherapy induced pancytopenia; T45.1X5A - Adverse effect of antineoplastic and immunosuppressive drugs, initial encounter
[2018-01-18] MEDS ORDERED: Gadobutrol PF 7.5 MMOL/7.5 ML Vial (for RAD) IV.SIG ONE (11:06)
--- NOTE | 2018-01-18 11:27 | MR ---
EXAM DATE: 01/18/2018 11:21 AM EDT AGE/SEX: 62 years / Male INDICATIONS: CVA. Loss of feeling in legs. CLINICAL DATA: This is the patient's subsequent encounter. Patient reports that signs and symptoms h ave been present for 2 days and indicates a pain score of 0/10. MEDICAL/SURGICAL HISTORY: Carcinoma, lung. Brain tumor. Lobectomy. Craniotomy. COMPARISON: No prior exams available for comparison. TECHNIQUE: Multiplanar, multisequence examination of the brain was performed without and with 7 ml Ga davist (gadobutrol) contrast as a single exam dose. FINDINGS: There is postsurgical encephalomalacia in the left occipital region. There is no evidence of brain ma ss or hemorrhage. There is nothing to suggest acute infarction. Brain is otherwise symmetric and unre markable. The extracranial structures are benign and intact. CONCLUSION: No acute intracranial findings. Electronically signed by: Eddie Chau MD 01/18/2018 11:26 AM EDT
--- NOTE | 2018-01-18 11:50 | MR ---
EXAM DATE: 01/18/2018 11:22 AM EDT AGE/SEX: 62 years / Male INDICATIONS: Myelopathy. Loss of feeling in legs. CLINICAL DATA: This is the patient's subsequent encounter. Patient reports that signs and symptoms h ave been present for 2 days and indicates a pain score of 0/10. MEDICAL/SURGICAL HISTORY: Carcinoma, lung. Brain tumor. Lobectomy. Craniotomy. COMPARISON: No prior exams available for comparison. TECHNIQUE: Multiplanar, multisequence MRI examination of the cervical spine was performed without an d with 7 ml Gadavist (gadobutrol) contrast as a single exam dose. FINDINGS: Sagittal T1 and T2-weighted imaging demonstrates adequate alignment of the cervical vertebral bodies. There are degenerated disc at C4/5 and C5/6. No abnormal signal is identified within the cervical cord. No abnormal marrow signal is seen within t he vertebral bodies. The cerebellar tonsils are in their appropriate location. The limited portions o f brainstem visualized are intact. Postcontrast axial and sagittal imaging is provided. No abnormal contrast enhancement is seen within the brainstem or the cord. Axial imaging: C2-C3: The thecal space is adequate. The neural foramina are adequate. The facet joints are intact. C3-C4: There is minimal broad-based disc bulge. The thecal space and foramina are adequate. There is mild facet arthritis on the right. The facet joint on the left is intact. C4-C5: There is central and left-sided disc protrusion which effaces the ventral thecal sac and abut the ventral aspect of the cord. There is flattening of the central aspect of the cord and the left s linda of the cord. There is disc bulge and uncovertebral osteophyte encroaching upon the lateral recess and base of the foramina on the left. The foramina on the right demonstrates moderate bony narrowing secondary to degenerative hypertrophy of the facet joint on the right. C5-C6: There is a degenerated disc with a broad-based disc bulge which effaces the ventral thecal sa c and abuts the ventral aspect of the cord. There is flattening of the anterior aspect of the cord. T here is mild encroachment of disc bulge on the lateral recess bilaterally. The foramina appear adequa te. There is moderate facet arthritis bilaterally. Overall, there is at least a moderate degree of sp inal stenosis at this level. C6-C7: There is a degenerated disc with a small broad-based disc bulge which just effaces the ventra l thecal sac. The residual thecal space and foramina appear adequate. There are degenerative changes in the facet joints bilaterally. C7-T1: No epidural impressions seen. CONCLUSION: 1. Degenerated disc with disc protrusions at C4/5 and C5/6. There is a moderate degree of spinal deshawn nosis at these levels. The individual levels are dictated in detail above. No edematous changes are s een within the cervical cord. Electronically signed by: Surendra Martin MD 01/18/2018 11:49 AM EDT
--- NOTE | 2018-01-18 13:45 | ECHRPT ---
Indication: Cardiomyopathy, unspecified CONCLUSIONS The left ventricular systolic function is low normal with an estimated ejection fraction in the rang e of 50- 55% by visual estimation. There are segmental regional wall motion abnormalities with hypokinesis of the mid to apical inferio r, inferolateral and mid to apical lateral jones. Mildly dilated left ventricle. [id number] mitral valve regurgitation. There is mild to moderate tricuspid valve regurgitation. The estimated pulmonary arterial pressure is 35.2 mmHg. BP: / HR: 61 Rhythm: Sinus MEASUREMENTS (Male / Female) Normal Values Technical Quality:Good 2D ECHO LV Diastolic Diameter PLAX 4.6 cm 4.2 - 5.9 / 3.9 - 5.3 cm LV Systolic Diameter PLAX 3.5 cm IVS Diastolic Thickness 0.9 cm 0.6 - 1.0 / 0.6 - 0.9 cm LVPW Diastolic Thickness 0.9 cm 0.6 - 1.0 / 0.6 - 0.9 cm LV Relative Wall Thickness 0.4 LVOT Diameter 2.1 cm M-MODE Aortic Root Diameter MM 3.2 cm LA Systolic Diameter MM 2.7 cm LA Ao Ratio MM 0.8 AV Cusp Separation MM 2.0 cm DOPPLER AV Peak Velocity 167.0 cm/s AV Peak Gradient 11.2 mmHg LVOT Peak Velocity 111.0 cm/s LVOT Peak Gradient 4.9 mmHg AV Area Cont Eq pk 2.3 cm MR Peak Velocity 401.0 cm/s MR Peak Gradient 64.3 mmHg Mitral E Point Velocity 73.1 cm/s Mitral A Point Velocity 77.0 cm/s Mitral E to A Ratio 0.9 LV E' Lateral Velocity 8.1 cm/s Mitral E to LV E' Lateral Ratio 9.0 LV E' Septal Velocity 7.1 cm/s Mitral E to LV E' Septal Ratio 10.3 TR Peak Velocity 251.0 cm/s TR Peak Gradient 25.2 mmHg Right Atrial Pressure 10.0 mmHg Pulmonary Artery Systolic Pressu 35.2 mmHg Right Ventricular Systolic Press 35.2 mmHg PV Peak Velocity 90.9 cm/s PV Peak Gradient 3.3 mmHg FINDINGS LEFT VENTRICLE The left ventricular systolic function is low normal with an estimated ejection fraction in the rang e of 50- 55% by visual estimation. There are segmental regional wall motion abnormalities with hypokinesis of the mid to apical inferio r, inferolateral and mid to apical lateral jones. Wall thickness is normal. Mildly dilated left ventricle. RIGHT VENTRICLE Normal right ventricular size and systolic function. LEFT ATRIUM The left atrial size is normal. RIGHT ATRIUM The right atrial size is normal. ATRIAL SEPTUM Normal atrial septal thickness without atrial level shunting by limited color doppler interrogation. AORTA The aortic root and proximal ascending aorta are normal in size on limited imaging. MITRAL VALVE Structurally normal mitral valve. [id number] mitral valve regurgitation. AORTIC VALVE Trileaflet aortic valve. No aortic valve stenosis or regurgitation. TRICUSPID VALVE There is mild to moderate tricuspid valve regurgitation. The estimated pulmonary arterial pressure is 35.2 mmHg. PULMONARY VALVE No pulmonary valve regurgitation or stenosis. VESSELS The inferior vena cava is normal in size. PERICARDIUM No pericardial effusion. Frederick Reyes (Electronically Signed) Final Date:18 January 2018 13:44
--- NOTE | 2018-01-18 15:27 | P.PNONC ---
Subjective Interval history: Patient sitting in chair, eating lunch. His is at the bedside. 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 Pt denies any bleeding. All questions answered. Discussed with RN and Dr Hernandez. Objective Vital Signs/Intake & Output: Vital Signs 01/17/18 16:52 01/17/18 20:00 01/17/18 20:33 Temperature 98.0 F 98.0 F Pulse Rate 63 70 70 Respiratory Rate 20 18 Blood Pressure 172/74 H 163/76 H Pulse Oximetry 95 95 01/18/18 00:00 01/18/18 04:00 01/18/18 08:00 Temperature 98.0 F 98.3 F 98.0 F Pulse Rate 76 75 68 Respiratory Rate 19 19 18 Blood Pressure 160/75 H 159/72 H 164/76 H Pulse Oximetry 94 L 97 96 01/18/18 12:00 Temperature 98.2 F Pulse Rate 61 Respiratory Rate 18 Blood Pressure 157/66 H Pulse Oximetry 94 L Intake & Output 01/17/18 01/18/18 01/18/18 18:59 06:59 18:59 Intake Total 240 / 240 1100 / 1100 Output Total 250 / 250 700 / 700 Balance -250 / -250 -460 / -460 1100 / 1100 Weight 68.1 kg 69.1 kg Intake: IV 1100 / 1100 NS Inj 1,000 ML @ 70 mls/hr IV. 1100 / 1100 CONT .[id number] [facility] Rx#:[id number] Oral 240 / 240 Output: Urine 250 / 250 700 / 700 Other: Weight On Admission 68.1 kg Result Diagrams: 01/18/18 05:41 01/18/18 05:41 Laboratory Results: Laboratory Results - last 24 hr 01/17/18 01/17/18 01/17/18 14:01 20:59 20:59 WBC 9.7 RBC 2.78 L Hgb 8.8 L Hct 26.1 L MCV 94.1 MCH 31.9 MCHC 33.8 RDW 16.7 Plt Count 18 L* MPV 8.9 Prelim Diff (Auto) Slide review pending Neut % (Auto) 65.9 Lymph % (Auto) 19.9 Thayer % (Auto) 9.7 H Eos % (Auto) 3.7 Baso % (Auto) 0.8 Neut # (Auto) 6.4 Lymph # (Auto) 1.9 Thayer # (Auto) 0.9 Eos # (Auto) 0.4 Baso # (Auto) 0.1 WBC Differential Manual diff final Seg Neuts % (Manual) 73 H Band Neuts % (Manual) 3 Lymphocytes % (Manual) 14 Monocytes % (Manual) 4 Eosinophils % (Manual) 3 Metamyelocytes % (Man) 1 Myelocytes % (Man) 2 H Abs Neuts (Manual) 7.7 Differential Comment . Platelet Estimate Low L Platelet Morphology Normal RBC Morphology Normal ESR Sodium Potassium Chloride Carbon Dioxide Anion Gap BUN Creatinine Estimated GFR Random Glucose Calcium Total Protein (PEP) Vitamin B12 720 Urine Color Urine Clarity Urine pH Ur Specific [place] Urine Protein Urine Glucose (UA) Urine Ketones Urine Occult Blood Urine Nitrate Urine Bilirubin Urine Urobilinogen Ur Leukocyte Esterase Urine RBC Urine WBC Ur Squamous Epith Cells Urine Mucus Micro UA Comment Ur Microscopic Review Urine Culture Comments Rheumatoid Factor Scrn Rheumatoid Factor Titer Heparin Dep Plt Ab OD 12.837 H Hep-Induced Plt Ab Jacey Positive H 01/18/18 01/18/18 01/18/18 02:56 05:41 05:41 WBC 8.8 RBC 2.83 L Hgb 9.1 L Hct 26.7 L MCV 94.2 MCH 32.3 MCHC 34.3 RDW 16.7 Plt Count 19 L* MPV 9.7 Prelim Diff (Auto) Neut % (Auto) Lymph % (Auto) Thayer % (Auto) Eos % (Auto) Baso % (Auto) Neut # (Auto) Lymph # (Auto) Thayer # (Auto) Eos # (Auto) Baso # (Auto) WBC Differential Seg Neuts % (Manual) Band Neuts % (Manual) Lymphocytes % (Manual) Monocytes % (Manual) Eosinophils % (Manual) Metamyelocytes % (Man) Myelocytes % (Man) Abs Neuts (Manual) Differential Comment Platelet Estimate Platelet Morphology RBC Morphology ESR Sodium 145 Potassium 4.1 Chloride 110 H Carbon Dioxide 25.1 Anion Gap 10 BUN 18 Creatinine 1.43 H Estimated GFR 50 L Random Glucose 95 Calcium 7.9 L Total Protein (PEP) Vitamin B12 Urine Color Yellow Urine Clarity Clear Urine pH 5.0 Ur Specific [place] Greater than 1.060 H Urine Protein 30 H Urine Glucose (UA) Negative Urine Ketones Trace H Urine Occult Blood Moderate H Urine Nitrate Negative Urine Bilirubin Negative Urine Urobilinogen 4 or greater Ur Leukocyte Esterase Negative Urine RBC 3 Urine WBC Less than 1 Ur Squamous Epith Cells <1 Urine Mucus Few H Micro UA Comment Culture not ind Ur Microscopic Review Not Reportable Urine Culture Comments Culture not ind Rheumatoid Factor Scrn Rheumatoid Factor Titer Heparin Dep Plt Ab OD Hep-Induced Plt Ab Jacey 01/18/18 01/18/18 13:15 13:15 WBC RBC Hgb Hct MCV MCH MCHC RDW Plt Count MPV Prelim Diff (Auto) Neut % (Auto) Lymph % (Auto) Thayer % (Auto) Eos % (Auto) Baso % (Auto) Neut # (Auto) Lymph # (Auto) Thayer # (Auto) Eos # (Auto) Baso # (Auto) WBC Differential Seg Neuts % (Manual) Band Neuts % (Manual) Lymphocytes % (Manual) Monocytes % (Manual) Eosinophils % (Manual) Metamyelocytes % (Man) Myelocytes % (Man) Abs Neuts (Manual) Differential Comment Platelet Estimate Platelet Morphology RBC Morphology ESR 30 H Sodium Potassium Chloride Carbon Dioxide Anion Gap BUN Creatinine Estimated GFR Random Glucose Calcium Total Protein (PEP) 6.2 L Vitamin B12 Urine Color Urine Clarity Urine pH Ur Specific [place] Urine Protein Urine Glucose (UA) Urine Ketones Urine Occult Blood Urine Nitrate Urine Bilirubin Urine Urobilinogen Ur Leukocyte Esterase Urine RBC Urine WBC Ur Squamous Epith Cells Urine Mucus Micro UA Comment Ur Microscopic Review Urine Culture Comments Rheumatoid Factor Scrn Negative Rheumatoid Factor Titer Not Reportable Heparin Dep Plt Ab OD Hep-Induced Plt Ab Jacey Imaging Studies: Impressions Venous Doppler Study 01/17/18 00:00 CONCLUSION: 1. The study is negative for bilateral upper extremity deep venous thrombosis. Lumbar Spine MRI 01/17/18 12:34 CONCLUSION: 1. Unremarkable appearance of the lumbar spine. 2. No evidence of bony or soft tissue metastases. Thoracic Spine MRI 01/17/18 12:34 CONCLUSION: 1. Small enhancing nodules identified along the surface of the spinal cord the lower thoracic spine which may represent intradural extra medullary lesions and drop metastases. 2. Postthoracotomy changes identified in the left lung with large air-fluid levels. 3. No evidence of bony metastases. Aorta w/Runoff CTA 01/17/18 17:39 CONCLUSION: 1. Infarction of the inferior pole of the right kidney of unknown age. 2. Severe chronic appearing infrarenal atherosclerotic disease causing severe narrowing of the distal aorta and proximal inflow vessels. Outflow is noted with diffuse atherosclerotic change below the bifurcation with two-vessel runoff to the feet. Cervical Spine MRI 01/18/18 00:00 CONCLUSION: 1. Degenerated disc with disc protrusions at C4/5 and C5/6. There is a moderate degree of spinal stenosis at these levels. The individual levels are dictated in detail above. No edematous changes are seen within the cervical cord. Head MRI 01/18/18 00:00 CONCLUSION: No acute intracranial findings. Medications: Active Medications Generic Name Dose Route Start Last Admin Trade Name Freq PRN Reason Stop Dose Admin Acetaminophen 500 mg 01/17/18 14:00 01/18/18 13:21 Tylenol PO 500 mg Q8HR SHAVONNE Administration Budesonide/Formoterol Fumarate 2 puff 01/17/18 14:00 01/18/18 08:27 Symbicort 160/4.5 Mcg Inh INH 2 puff BID SHAVONNE Administration Folic Acid 1 mg 01/17/18 13:45 01/18/18 08:24 Folic Acid PO 1 mg DAILY SHAVONNE Administration Gabapentin 300 mg 01/18/18 09:00 01/18/18 09:48 Neurontin PO 300 mg DAILY SHAVONNE Administration Ibuprofen 800 mg 01/17/18 18:00 01/18/18 13:29 Advil PO Not Given TID SHAVONNE Metoprolol Tartrate 25 mg 01/17/18 13:45 01/18/18 08:24 Lopressor PO 25 mg BID SHAVONNE Administration Morphine Sulfate 4 mg 01/18/18 02:56 01/18/18 05:40 Morphine Inj IV.PUSH 4 mg Q3H PRN Administration BREAKTHROUGH PAIN Oxycodone HCl 10 mg 01/18/18 02:56 01/18/18 14:17 Roxicodone PO 10 mg Q4H PRN Administration PAIN SCALE 6 TO 10 Pantoprazole Sodium 40 mg 01/17/18 14:00 01/18/18 08:24 Protonix PO 40 mg DAILY SHAVONNE Administration Sodium Chloride 2 ml 01/17/18 11:17 01/17/18 23:38 Ns Flush IV.FLUSH 2 ml PRN PRN Administration FLUSH AFTER USING IV ACCESS Temazepam 15 mg 01/17/18 21:00 01/17/18 22:31 Restoril PO 15 mg HS PRN Administration INSOMNIA Objective Remarks: GENERAL: Well-nourished, well-developed gentleman, in no acute distress. SKIN: Warm and dry. HEAD: Normocephalic. EYES: No scleral icterus. No injection or drainage. NECK: Supple, trachea midline. CARDIOVASCULAR: Regular rate and rhythm without murmurs. RESPIRATORY: Posterior breath sounds clear. Non-labored. GASTROINTESTINAL: Abdomen soft, non-tender, nondistended. EXTREMITIES: No cyanosis, or edema. MUSCULOSKELETAL: Adequate muscle tone. NEUROLOGICAL: No obvious focal deficit. Awake, alert, and oriented x3. PSYCHIATRIC: Appropriate mood and affect; insight and judgment normal. Assessment/Plan - Plan Mr. Bernstein is a pleasant 62-year-old gentleman with a history of non-small cell lung cancer with brain metastasis, status post craniotomy with resection followed by stereotactic radiosurgery with gamma knife, 3-4 cycles of preop Immunochemotherapy with 2 doses of Platinol and Alimta he also underwent thoracotomy and resection of the left upper lobe and wedge resection of the left lower lobe on 01/01/2018. Patient had minimal residual disease of 0.6 cm and also the lymph nodes were negative. Margins were also negative. During this admission the patient was found to have severe thrombocytopenia. Patient did have recent exposure to subcutaneous heparin after his recent surgery. Plan: 1. Non-small cell lung cancer with brain metastasis, status post above treatments. MR thoracic spine on 01/17/2018 showed some small enhancing nodules identified along the surface of the spinal cord in the lower thoracic spine dural extra medullary lesions and drop metastasis. Dr. hernandez discussed these results with the patient. Neurosurgery has been consulted, they report the thoracic abnormality could also be vascular vs. mets. Neuro workup is pending. 2. 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 The patient will be started on argatroban. CHAI pending. Avoid heparin exposure. Monitor for bleeding. No transfusions warranted at this time. 3. Thrombosis of right saphenous vein. Starting argatrpban drip for thrombocytopenia. 4. Pain and generalized weakness in lower extremities. CTA with runoff showed infarction of the inferior pole of the right kidney of unknown age. Severe chronic appearing infrarenal atherosclerotic disease causing severe narrowing of the distal aorta and proximal inflow vessels. Outflow is noted with diffuse atherosclerotic change below the bifurcation with 2 vessel runoff to the feet. Patient possibly experiencing claudication pain. - Attending Statement The exam, history, and the medical decision-making described in the above note were completed with the assistance of the mid-level provider. I reviewed and agree with the findings presented. I attest that I had a [id number] encounter with the patient on the same day, and personally performed and documented my assessment and findings in the medical record. Pt is c/o severe pain in both legs when he walked in the hallway and made one [place]. He could not walk anymore due to severe pain in thigh and calves. The pain improved after he went to bed to get rest. Denies any back pain. I disagree with medical team that he has neuropathy from cisplatin chemo. Cisplatin causes peripheral neuropathy which starts from the toes or/and fingers. He denies any pain or numbness of toes and fingers. Also neuropathy pain is persistent and not intermittent. CTA run off shows severe atherosclerotic disease with NEAR TOTAL OCCLUSION OF DISTAL AORTA. He has large mural thrombosis around that site with infarction of left kidney lower pole. He has cyanosis of toes. Bilateral feet and lower legs are extremely cold. Patient is having ischemic pain in thighs which radiates to lower legs. He has CLASSIC INTERMITTENT CLAUDICATION. Pt is having ISCHEMIC PAIN due to severe atherosclerosis compounded by mural thrombosis causing near total occlusion of distal aorta. Consult vascular surgery. He has severe thrombocytopenia due to Heparin. HIT screening test came back positive with very high titer. 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 He has thrombosis of right greater saphenous vein (Superficial thrombosis) and thrombosis of distal aorta. Start Argatroban anticoagulant drip. Discuss with IV med pharmacist. I also D/W our BUILDING MOVER Ms Hauser who spoke to pt RN to start the argatroban drip. Serotonin release assay ordered for confirmation of HIT. D/W pt and about above. Regarding lesions on thoracic spine and possible drop mets i have extensive discussion with rad onc DR Todd. He is also not sure about the nature of these lesions at this time. Neurosurgeon DR Blanton input noted. Due to severe thrombocytopenia can not do spinal tap or bx or XRT. DR Todd will see the pt today. I have d/w incharge nurse (Adrianna)and pt RN (Brandee Roberts) regarding his case and argatroban drip protocol.
--- NOTE | 2018-01-18 15:48 | P.CON ---
History of Present Illness Service: Radiation oncology Consult date: 01/18/18 Requesting Physician: Antwon Blanton Reason for Consult: Patient being evaluated for palliative radiotherapy. Primary Care Provider: Crescencio Kelly MD Family Provider: Crescencio Kelly MD Chief Complaint: Intermittent pain of the lower extremities History of Present Illness: 62-year-old white male with the diagnosis of lung carcinoma status post neoadjuvant chemotherapy and surgical resection. Patient later on went to develop a brain metastasis which has been surgically resected and the patient has undergone adjuvant radiation therapy to the tumor bed. According to the patient this was performed about 6 months ago. The surgical resection as well as the radiation therapy were performed in [place]. Patient recently has started experiencing intermittent intensive pain of the lower extremities for which reason she came into the hospital and was admitted for evaluation. MRI of the T -spine has detected spinal cord lesion around T9 and T11. Patient has been evaluated by neurosurgery Dr. Blanton and surgical intervention was not recommended. Patient also has the added problem of heparin induced thrombocytopenia. I have discussed this case today with Dr. Hernandez. A consult has been placed for evaluation regarding radiation therapy treatment options. Review of Systems Constitutional: Reports body ache(s) Eyes: Denies blind spots, Denies blurry vision, Denies bulging eyes, Denies change in vision, Denies double vision, Denies discharge, Denies dry eyes, Denies floaters, Denies irritation, Denies itchy eyes, Denies loss of vision, Denies pain, Denies requires corrective lenses, Denies sensitivity to light, Denies other Ears, Nose, Mouth, and Throat: Denies abnormal hearing, Denies bleeding gums, Denies bad breath, Denies change in voice, Denies dental pain, Denies difficulty swallowing, Denies dizziness, Denies dry mouth, Denies ear discharge , Denies ear pain, Denies facial pain, Denies headache(s), Denies hearing loss, Denies hoarseness, Denies lip swelling, Denies nosebleed, Denies mouth lesions, Denies mouth pain, Denies nasal congestion, Denies nasal discharge, Denies nasal obstruction, Denies nasal trauma, Denies neck lump, Denies neck pain, Denies nose pain, Denies pain with swallowing, Denies poor balance, Denies post nasal drip, Denies ringing in the ears, Denies sinus pain, Denies sinus pressure , Denies sore throat, Denies throat swelling, Denies tongue swelling, Denies other Cardiovascular: Reports leg pain with activity Respiratory: Denies change in phlegm color, Denies chest congestion, Denies cough, Denies coughing up blood, Denies excessive phlegm production, Denies pain on inspiration, Denies pain with cough, Denies shortness of breath, Denies shortness of breath with activity, Denies snoring, Denies stridor, Denies wheezing, Denies other Gastrointestinal: Denies abdominal pain, Denies belching, Denies black, tarry stools, Denies bloating, Denies bright, red blood in stools, Denies change in bowel habits, Denies constant urge to pass stool, Denies change in stools, Denies coffee ground vomit, Denies constipation, Denies cramping, Denies difficulty swallowing, Denies excessive passing of gas, Denies feeling full early, Denies heartburn, Denies incontinent of stools, Denies loose stools, Denies nausea, Denies pain with swallowing, Denies vomiting, Denies vomiting blood, Denies other Genitourinary: Denies blood in semen, Denies blood in urine, Denies decreased urination, Denies difficulty urinating, Denies difficulty with ejaculations, Denies erectile dysfunction, Denies genital lesions, Denies genital pain, Denies painful urination, Denies side pain, Denies frequent nighttime urination , Denies painful ejaculations, Denies penile discharge, Denies scrotal swelling , Denies testicle lump, Denies testicle pain, Denies urinary frequency, Denies urinary hesitancy, Denies urinary incontinence, Denies urinary urgency, Denies other Musculoskeletal: Reports muscle cramps, Reports other Comments: Patient states that he has pain of the lower extremities which is intermittent. Sometimes is unbearable. Patient states that today in the a.m. he had slight pain of the lower extremities I took a Tylenol and it resolved. Following this in the afternoon he had a walk around the hospital floor and when he came back his leg started hurting to the point that he required a Percocet and his legs are still hurting indicates the pain is on the coughs bilaterally as well as the thighs posteriorly. Denies any back pain. Skin/Breast: Denies acne, Denies bleeding lesions, Denies boil, Denies breast swelling, Denies breast skin changes, Denies breast pain, Denies breast lump, Denies change in breast shape, Denies change in hair, Denies change in skin color, Denies changing lesions, Denies dry skin, Denies excessive hair growth, Denies hair loss, Denies itching, Denies lesions, Denies nail changes, Denies new lesions, Denies nipple discharge, Denies non-healing lesions, Denies redness , Denies sensitivity to light, Denies rash, Denies skin pain, Denies skin ulcer , Denies sores, Denies stretch ly, Denies unusual bruising, Denies wounds, Denies yellowing of the skin, Denies other Neurologic: Denies abnormal hearing, Denies abnormal movements, Denies abnormal speech, Denies abnormal walking, Denies behavioral changes, Denies burning sensations, Denies confusion, Denies dizziness, Denies fainting, Denies frequent falls, Denies headache(s), Denies lack of coordination, Denies localized weakness, Denies loss of vision, Denies memory loss, Denies numbness, Denies other visual disturbances, Denies radiating pain, Denies restless legs, Denies convulsions, Denies seizure-like activity, Denies sensory deficit, Denies tingling, Denies tingling/numbness/burning sensations, Denies tremor(s), Denies unsteadiness, Denies weakness, Denies other Comments: Denies any decrease in sensation of the lower extremities. Denies any issues with proprioception. Denies any issues with motor functions. Psychiatric: Denies abnormal sleep pattern, Denies anxiety, Denies behavioral changes, Denies change in appetite, Denies change in sex drive, Denies confusion , Denies depression, Denies difficulty concentrating, Denies hearing things others do not hear, Denies hopelessness, Denies irritability, Denies lack of enjoyment, Denies memory loss, Denies mood swings, Denies panic attacks, Denies paranoia, Denies seeing things others do not see, Denies sensing things others do not sense, Denies tactile hallucinations, Denies thoughts of hurting/killing others, Denies thoughts of hurting/killing yourself, Denies other Endocrine: Denies cold intolerance, Denies excessive sweating, Denies flushing, Denies heat intolerance, Denies increased hunger, Denies increased thirst, Denies increased urination, Denies rapid, pounding, or irregular heartbeat, Denies other Hematologic/Lymphatic: Denies easy bleeding, Denies easy bruising, Denies enlarged lymph nodes, Denies other Allergic/Immunologic: Denies GI upset with certain foods, Denies hives, Denies itchy eyes, Denies lip swelling, Denies seasonal runny nose, Denies throat swelling, Denies tongue swelling, Denies wheezing, Denies other PMFSH - History History Provided By: Patient - Medical History Medical History: Medical History (Last Reviewed 01/24/18 @ 07:58 by Lexus Potts) Brain tumor FHx: chemotherapy Lung cancer Primary cancer of left lower lobe of lung - Surgical History Surgical History: Surgical History (Last Reviewed 01/24/18 @ 07:58 by Lexus Potts) History of tympanoplasty - Family History Family History: Family History (Last Reviewed 01/17/18 @ 19:36 by Antwon Blanton MD) Other Cancer - Tobacco History Second Hand Smoke Exposure: No Tobacco Use In Past 30 Days: No Smoking Status: Former smoker Tobacco Type: Cigarettes Packs Per Day: 2 Years Smoked: 45 Smoking End Date: 08/07/17 - Alcohol History How Often Do You Have a Drink Containing Alcohol: 2 to 3 times a week - Substance Use History Substance History: No History of Abuse - Travel History History of Recent Travel: No Recent Travel in the [place] Within the Last 8 Weeks: No Recent Travel Out of the Country Within the Last 8 Weeks: No - Immunization History Tetanus Immunization: Unsure Hx Influenza Vaccine This Season: No Medications and Allergies Active Medications: Active Medications Acetaminophen (Tylenol) 500 mg PO Q8HR [facility] Last Admin: 01/18/18 13:21 Dose: 500 mg Acetaminophen (Tylenol) 650 mg PO Q6HR PRN PRN Reason: PAIN SCALE 1 TO 2 Al Hydroxide/Mg Hydroxide (Milk Of Magnjr Liq) 30 ml PO Q12H PRN PRN Reason: Mild Constipation Bisacodyl (Dulcolax Supp) 10 mg RECTAL DAILY PRN PRN Reason: SEVERE CONSITIPATION Budesonide/Formoterol Fumarate (Symbicort 160/4.5 Mcg Inh) 2 puff INH BID [facility] Last Admin: 01/18/18 08:27 Dose: 2 puff Clonidine HCl (Catapres) 0.1 mg PO Q6H PRN PRN Reason: SEE LABEL COMMENTS Folic Acid (Folic Acid) 1 mg PO DAILY [facility] Last Admin: 01/18/18 08:24 Dose: 1 mg Gabapentin (Neurontin) 300 mg PO DAILY [facility] Last Admin: 01/18/18 09:48 Dose: 300 mg Argatroban 250 mg/ Sodium (Chloride) 250 mls @ 0 mls/hr IV.CONT TITRATE PRN; Protocol PRN Reason: Per Protocol Ibuprofen (Advil) 800 mg PO TID [facility] Last Admin: 01/18/18 13:29 Dose: Not Given Lactulose (Lactulose Liq) 30 ml PO DAILY PRN PRN Reason: SEVERE CONSITIPATION Metoprolol Tartrate (Lopressor) 25 mg PO BID [facility] Last Admin: 01/18/18 08:24 Dose: 25 mg Morphine Sulfate (Morphine Inj) 4 mg IV.PUSH Q3H PRN PRN Reason: BREAKTHROUGH PAIN Last Admin: 01/18/18 05:40 Dose: 4 mg Naloxone HCl (Narcan Inj) 0.4 mg IV.PUSH UNSCH PRN PRN Reason: SEE LABEL COMMENTS Oxycodone HCl (Roxicodone) 10 mg PO Q4H PRN PRN Reason: PAIN SCALE 6 TO 10 Last Admin: 01/18/18 14:17 Dose: 10 mg Oxycodone/Acetaminophen (Percocet 5/325 Mg) 1 tab PO Q6H PRN PRN Reason: PAIN SCALE 3 TO 5 Pantoprazole Sodium (Protonix) 40 mg PO DAILY [facility] Last Admin: 01/18/18 08:24 Dose: 40 mg Sennosides (Senokot) 17.2 mg PO Q12H PRN PRN Reason: Moderate Constipation Sodium Chloride (Ns Flush) 2 ml IV.FLUSH PRN PRN PRN Reason: FLUSH AFTER USING IV ACCESS Last Admin: 01/17/18 23:38 Dose: 2 ml Temazepam (Restoril) 15 mg PO HS PRN PRN Reason: INSOMNIA Last Admin: 01/17/18 22:31 Dose: 15 mg Allergies Allergy/AdvReac Type Severity Reaction Status Date / Time No Known Allergies Allergy Unverified 01/17/18 11:06 Home Medications Medication Instructions Recorded Confirmed Type acetaminophen 500 mg PO Q8HR 01/17/18 01/17/18 History budesonide-formoterol [Symbicort] 2 puff INHALATION BID 01/17/18 01/17/18 History folic acid 1 mg PO DAILY 01/17/18 01/17/18 History gabapentin 100 mg PO DAILY 01/17/18 01/17/18 History ibuprofen [Motrin IB] 800 mg PO TID 01/17/18 01/17/18 History [id number]-ast 1 cap PO DAILY 01/17/18 01/17/18 History [krill oil] metoprolol tartrate 25 mg PO BID 01/17/18 01/17/18 History multivitamin 1 tab PO DAILY 01/17/18 01/17/18 History omeprazole 40 mg PO DAILY 01/17/18 01/17/18 History oxycodone 10 mg PO Q4-6H 01/17/18 01/17/18 History tramadol 50 mg PO Q6H 01/17/18 01/17/18 History Physical Exam Vital signs: Vital Signs 01/17/18 16:52 01/17/18 20:00 01/17/18 20:33 Temperature 98.0 F 98.0 F Pulse Rate 63 70 70 Respiratory Rate 20 18 Blood Pressure 172/74 H 163/76 H Pulse Oximetry 95 95 01/18/18 00:00 01/18/18 04:00 01/18/18 08:00 Temperature 98.0 F 98.3 F 98.0 F Pulse Rate 76 75 68 Respiratory Rate 19 19 18 Blood Pressure 160/75 H 159/72 H 164/76 H Pulse Oximetry 94 L 97 96 01/18/18 12:00 Temperature 98.2 F Pulse Rate 61 Respiratory Rate 18 Blood Pressure 157/66 H Pulse Oximetry 94 L Intake & Output 01/17/18 01/18/18 01/18/18 18:59 06:59 18:59 Intake Total 240 / 240 1100 / 1100 Output Total 250 / 250 700 / 700 Balance -250 / -250 -460 / -460 1100 / 1100 Weight 68.1 kg 69.1 kg Intake: IV 1100 / 1100 NS Inj 1,000 ML @ 70 mls/hr IV. 1100 / 1100 CONT .[id number] [facility] Rx#:[id number] Oral 240 / 240 Output: Urine 250 / 250 700 / 700 Other: Weight On Admission 68.1 kg - Constitutional mild distress, thin, cooperative - Routine HEENT Exam Head: Present: normocephalic, atraumatic Eye: Present: EOMI ENT: Present: mucous membranes moist, nares patent, external ear normal - Routine Neck Exam Present: supple - Routine Respiratory Exam Comments: There is decreased ventilatory inspiratory effort which is equal and bilateral, lungs are clear to auscultation. - Routine Cardiovascular Exam Comments: Heart was regular in rate and rhythm with no murmurs. - Routine Abdominal Exam Present: soft Comments: No hepato-or splenomegaly detected. - Routine Extremities Exam Present: calf tenderness, tenderness Comments: No lower extremity edema detected. No clinical signs of DVT. No lower extremity cyanosis detected. - Routine Skin Exam Present: intact - Routine Neurological Exam Present: alert, oriented X3, moving all extremities, normal tone, vision grossly intact, hearing grossly intact, normal speech - Routine Psychiatric Exam Present: normal affect, normal thought process, cooperative, good insight, good judgment Assessment and Plan - Plan Assessment: 62-year-old white male with diagnosis of metastatic lung carcinoma to the brain. Patient with lesion within the T-spine. Patient being evaluated for possible radiotherapy treatment options. Plan: I have discussed this case with Dr. Hernandez today. I had extensive discussion with the patient and the . At this point the patient advised that I do not know if the lesions within the T-spine are truly metastatic disease. His symptoms do not correlate with the location of the lesion within the T-spine. Discussed with Dr. Hernandez at this point, radiation is contraindicated until his platelets rise above 20 and preferably above 50. Per Discussion with Dr. 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 Due to the fact that the patient had symptoms following a walk in the floor makes me believe that possibly his pain is related to intermittent ischemia of the lower extremities, perhaps due to the HIT. I advised the patient that at this point I would wait until the platelets have recovered and see the symptoms have resolved and that before we consider any radiation treatments the patient perhaps should have a spinal fluid test and perhaps repeat MRI of the T-spine in a week to 10 days. If deemed necessary, trial of dexamethasone may be tried and the patient and see if this will resolve some of his symptoms did not improve after the platelets have recovered. Presently there is no need for emergent radiation therapy. There is no evidence of cord compromise or compression. Patient is agreement and does not want any radiation therapy at the present time. At this point we will proceed as above. Case will be discussed the tumor board. Patient advised if I could be of any further assistance or to please let me know. I left 1 of my business cards with him. I have personally reviewed the MRI of the T-spine on 01/17/2018. Dr. Blanton thank you very much for the referral of this patient and allowing me to precipitate in his care. Should you have any further questions or concerns please do not hesitate to contact me. Results Procedures completed during hospitalization: none Labs on day of discharge: Labs from last 24 hours 01/18/18 01/18/18 01/18/18 13:15 13:15 13:15 WBC RBC Hgb Hct MCV MCH MCHC RDW Plt Count MPV Prelim Diff (Auto) Neut % (Auto) Lymph % (Auto) [place] % (Auto) Eos % (Auto) Baso % (Auto) Neut # (Auto) Lymph # (Auto) [place] # (Auto) Eos # (Auto) Baso # (Auto) WBC Differential Seg Neuts % (Manual) Band Neuts % (Manual) Lymphocytes % (Manual) Monocytes % (Manual) Eosinophils % (Manual) Metamyelocytes % (Man) Myelocytes % (Man) Abs Neuts (Manual) Differential Comment Platelet Estimate Platelet Morphology RBC Morphology ESR Sodium Potassium Chloride Carbon Dioxide Anion Gap BUN Creatinine Estimated GFR Random Glucose Calcium Total Protein (PEP) 6.2 L Albumin (PEP) Pending Albumin/Globulin Ratio Pending [id number] Pending Ovdzt-[id number] Pending Beta Globulins Pending Gamma Globulins Pending PEP Pathologist Comment Pending Thiamine Pending Vitamin B12 Methylmalonic Acid Pending Urine Color Urine Clarity Urine pH Ur Specific [place] Urine Protein Urine Glucose (UA) Urine Ketones Urine Occult Blood Urine Nitrate Urine Bilirubin Urine Urobilinogen Ur Leukocyte Esterase Urine RBC Urine WBC Ur Squamous Epith Cells Urine Mucus Micro UA Comment Ur Microscopic Review Urine Culture Comments Rheumatoid Factor Scrn Negative Rheumatoid Factor Titer Not Reportable ATILIO Screen Pending Heparin Dep Plt Ab OD Hep-Induced Plt Ab Jacey RPR Pending 01/18/18 01/18/18 01/18/18 13:15 05:41 05:41 WBC 8.8 RBC 2.83 L Hgb 9.1 L Hct 26.7 L MCV 94.2 MCH 32.3 MCHC 34.3 RDW 16.7 Plt Count 19 L* MPV 9.7 Prelim Diff (Auto) Neut % (Auto) Lymph % (Auto) [place] % (Auto) Eos % (Auto) Baso % (Auto) Neut # (Auto) Lymph # (Auto) [place] # (Auto) Eos # (Auto) Baso # (Auto) WBC Differential Seg Neuts % (Manual) Band Neuts % (Manual) Lymphocytes % (Manual) Monocytes % (Manual) Eosinophils % (Manual) Metamyelocytes % (Man) Myelocytes % (Man) Abs Neuts (Manual) Differential Comment Platelet Estimate Platelet Morphology RBC Morphology ESR 30 H Sodium 145 Potassium 4.1 Chloride 110 H Carbon Dioxide 25.1 Anion Gap 10 BUN 18 Creatinine 1.43 H Estimated GFR 50 L Random Glucose 95 Calcium 7.9 L Total Protein (PEP) Albumin (PEP) Albumin/Globulin Ratio Htovk-3-Fxjkasyuq Xwdhe-0-Pwluebzzj Beta Globulins Gamma Globulins PEP Pathologist Comment Thiamine Vitamin B12 Methylmalonic Acid Urine Color Urine Clarity Urine pH Ur Specific [place] Urine Protein Urine Glucose (UA) Urine Ketones Urine Occult Blood Urine Nitrate Urine Bilirubin Urine Urobilinogen Ur Leukocyte Esterase Urine RBC Urine WBC Ur Squamous Epith Cells Urine Mucus Micro UA Comment Ur Microscopic Review Urine Culture Comments Rheumatoid Factor Scrn Rheumatoid Factor Titer ATILIO Screen Heparin Dep Plt Ab OD Hep-Induced Plt Ab Jacey RPR 01/18/18 01/17/18 01/17/18 02:56 20:59 20:59 WBC RBC Hgb Hct MCV MCH MCHC RDW Plt Count MPV Prelim Diff (Auto) Neut % (Auto) Lymph % (Auto) [place] % (Auto) Eos % (Auto) Baso % (Auto) Neut # (Auto) Lymph # (Auto) [place] # (Auto) Eos # (Auto) Baso # (Auto) WBC Differential Seg Neuts % (Manual) Band Neuts % (Manual) Lymphocytes % (Manual) Monocytes % (Manual) Eosinophils % (Manual) Metamyelocytes % (Man) Myelocytes % (Man) Abs Neuts (Manual) Differential Comment Platelet Estimate Platelet Morphology RBC Morphology ESR Sodium Potassium Chloride Carbon Dioxide Anion Gap BUN Creatinine Estimated GFR Random Glucose Calcium Total Protein (PEP) Albumin (PEP) Albumin/Globulin Ratio Ectsy-4-Podgefqot Cmxfg-8-Rxjvhvfig Beta Globulins Gamma Globulins PEP Pathologist Comment Thiamine Vitamin B12 720 Methylmalonic Acid Pending Urine Color Yellow Urine Clarity Clear Urine pH 5.0 Ur Specific [place] Greater than 1.060 H Urine Protein 30 H Urine Glucose (UA) Negative Urine Ketones Trace H Urine Occult Blood Moderate H Urine Nitrate Negative Urine Bilirubin Negative Urine Urobilinogen 4 or greater Ur Leukocyte Esterase Negative Urine RBC 3 Urine WBC Less than 1 Ur Squamous Epith Cells <1 Urine Mucus Few H Micro UA Comment Culture not ind Ur Microscopic Review Not Reportable Urine Culture Comments Culture not ind Rheumatoid Factor Scrn Rheumatoid Factor Titer ATILIO Screen Heparin Dep Plt Ab OD Hep-Induced Plt Ab Jacey RPR 01/17/18 01/17/18 20:59 14:01 WBC 9.7 RBC 2.78 L Hgb 8.8 L Hct 26.1 L MCV 94.1 MCH 31.9 MCHC 33.8 RDW 16.7 Plt Count 18 L* MPV 8.9 Prelim Diff (Auto) Slide review pending Neut % (Auto) 65.9 Lymph % (Auto) 19.9 [place] % (Auto) 9.7 H Eos % (Auto) 3.7 Baso % (Auto) 0.8 Neut # (Auto) 6.4 Lymph # (Auto) 1.9 [place] # (Auto) 0.9 Eos # (Auto) 0.4 Baso # (Auto) 0.1 WBC Differential Manual diff final Seg Neuts % (Manual) 73 H Band Neuts % (Manual) 3 Lymphocytes % (Manual) 14 Monocytes % (Manual) 4 Eosinophils % (Manual) 3 Metamyelocytes % (Man) 1 Myelocytes % (Man) 2 H Abs Neuts (Manual) 7.7 Differential Comment . Platelet Estimate Low L Platelet Morphology Normal RBC Morphology Normal ESR Sodium Potassium Chloride Carbon Dioxide Anion Gap BUN Creatinine Estimated GFR Random Glucose Calcium Total Protein (PEP) Albumin (PEP) Albumin/Globulin Ratio Dcyfn-7-Naizdrfew Lixhk-0-Ykvpddtzk Beta Globulins Gamma Globulins PEP Pathologist Comment Thiamine Vitamin B12 Methylmalonic Acid Urine Color Urine Clarity Urine pH Ur Specific [place] Urine Protein Urine Glucose (UA) Urine Ketones Urine Occult Blood Urine Nitrate Urine Bilirubin Urine Urobilinogen Ur Leukocyte Esterase Urine RBC Urine WBC Ur Squamous Epith Cells Urine Mucus Micro UA Comment Ur Microscopic Review Urine Culture Comments Rheumatoid Factor Scrn Rheumatoid Factor Titer ATILIO Screen Heparin Dep Plt Ab OD 12.837 H Hep-Induced Plt Ab Jacey Positive H RPR - Impressions ITS Impressions Chest X-Ray 01/17/18 00:00 CONCLUSION: Left lung cavities with air-fluid levels which may be postsurgical Status post left thoracotomy Pleural-parenchymal scarring right upper lobe Venous Doppler Study 01/17/18 11:22 CONCLUSION: 1. Occlusive thrombus is seen in the greater saphenous vein on the right. Lumbar Spine MRI 01/17/18 12:34 CONCLUSION: 1. Unremarkable appearance of the lumbar spine. 2. No evidence of bony or soft tissue metastases. Thoracic Spine MRI 01/17/18 12:34 CONCLUSION: 1. Small enhancing nodules identified along the surface of the spinal cord the lower thoracic spine which may represent intradural extra medullary lesions and drop metastases. 2. Postthoracotomy changes identified in the left lung with large air-fluid levels. 3. No evidence of bony metastases. Aorta w/Runoff CTA 01/17/18 17:39 CONCLUSION: 1. Infarction of the inferior pole of the right kidney of unknown age. 2. Severe chronic appearing infrarenal atherosclerotic disease causing severe narrowing of the distal aorta and proximal inflow vessels. Outflow is noted with diffuse atherosclerotic change below the bifurcation with two-vessel runoff to the feet. Cervical Spine MRI 01/18/18 00:00 CONCLUSION: 1. Degenerated disc with disc protrusions at C4/5 and C5/6. There is a moderate degree of spinal stenosis at these levels. The individual levels are dictated in detail above. No edematous changes are seen within the cervical cord. Head MRI 01/18/18 00:00 CONCLUSION: No acute intracranial findings. Results - Labs CBC & Chem 7: 01/24/18 04:20 01/24/18 04:20 Labs: Laboratory Results - last 24 hr 01/17/18 01/17/18 01/17/18 14:01 20:59 20:59 WBC 9.7 RBC 2.78 L Hgb 8.8 L Hct 26.1 L MCV 94.1 MCH 31.9 MCHC 33.8 RDW 16.7 Plt Count 18 L* MPV 8.9 Prelim Diff (Auto) Slide review pending Neut % (Auto) 65.9 Lymph % (Auto) 19.9 [place] % (Auto) 9.7 H Eos % (Auto) 3.7 Baso % (Auto) 0.8 Neut # (Auto) 6.4 Lymph # (Auto) 1.9 [place] # (Auto) 0.9 Eos # (Auto) 0.4 Baso # (Auto) 0.1 WBC Differential Manual diff final Seg Neuts % (Manual) 73 H Band Neuts % (Manual) 3 Lymphocytes % (Manual) 14 Monocytes % (Manual) 4 Eosinophils % (Manual) 3 Metamyelocytes % (Man) 1 Myelocytes % (Man) 2 H Abs Neuts (Manual) 7.7 Differential Comment . Platelet Estimate Low L Platelet Morphology Normal RBC Morphology Normal ESR Sodium Potassium Chloride Carbon Dioxide Anion Gap BUN Creatinine Estimated GFR Random Glucose Calcium Total Protein (PEP) Vitamin B12 720 Urine Color Urine Clarity Urine pH Ur Specific [place] Urine Protein Urine Glucose (UA) Urine Ketones Urine Occult Blood Urine Nitrate Urine Bilirubin Urine Urobilinogen Ur Leukocyte Esterase Urine RBC Urine WBC Ur Squamous Epith Cells Urine Mucus Micro UA Comment Ur Microscopic Review Urine Culture Comments Rheumatoid Factor Scrn Rheumatoid Factor Titer Heparin Dep Plt Ab OD 12.837 H Hep-Induced Plt Ab Jacey Positive H 01/18/18 01/18/18 01/18/18 02:56 05:41 05:41 WBC 8.8 RBC 2.83 L Hgb 9.1 L Hct 26.7 L MCV 94.2 MCH 32.3 MCHC 34.3 RDW 16.7 Plt Count 19 L* MPV 9.7 Prelim Diff (Auto) Neut % (Auto) Lymph % (Auto) [place] % (Auto) Eos % (Auto) Baso % (Auto) Neut # (Auto) Lymph # (Auto) [place] # (Auto) Eos # (Auto) Baso # (Auto) WBC Differential Seg Neuts % (Manual) Band Neuts % (Manual) Lymphocytes % (Manual) Monocytes % (Manual) Eosinophils % (Manual) Metamyelocytes % (Man) Myelocytes % (Man) Abs Neuts (Manual) Differential Comment Platelet Estimate Platelet Morphology RBC Morphology ESR Sodium 145 Potassium 4.1 Chloride 110 H Carbon Dioxide 25.1 Anion Gap 10 BUN 18 Creatinine 1.43 H Estimated GFR 50 L Random Glucose 95 Calcium 7.9 L Total Protein (PEP) Vitamin B12 Urine Color Yellow Urine Clarity Clear Urine pH 5.0 Ur Specific [place] Greater than 1.060 H Urine Protein 30 H Urine Glucose (UA) Negative Urine Ketones Trace H Urine Occult Blood Moderate H Urine Nitrate Negative Urine Bilirubin Negative Urine Urobilinogen 4 or greater Ur Leukocyte Esterase Negative Urine RBC 3 Urine WBC Less than 1 Ur Squamous Epith Cells <1 Urine Mucus Few H Micro UA Comment Culture not ind Ur Microscopic Review Not Reportable Urine Culture Comments Culture not ind Rheumatoid Factor Scrn Rheumatoid Factor Titer Heparin Dep Plt Ab OD Hep-Induced Plt Ab Jacey 01/18/18 01/18/18 13:15 13:15 WBC RBC Hgb Hct MCV MCH MCHC RDW Plt Count MPV Prelim Diff (Auto) Neut % (Auto) Lymph % (Auto) [place] % (Auto) Eos % (Auto) Baso % (Auto) Neut # (Auto) Lymph # (Auto) [place] # (Auto) Eos # (Auto) Baso # (Auto) WBC Differential Seg Neuts % (Manual) Band Neuts % (Manual) Lymphocytes % (Manual) Monocytes % (Manual) Eosinophils % (Manual) Metamyelocytes % (Man) Myelocytes % (Man) Abs Neuts (Manual) Differential Comment Platelet Estimate Platelet Morphology RBC Morphology ESR 30 H Sodium Potassium Chloride Carbon Dioxide Anion Gap BUN Creatinine Estimated GFR Random Glucose Calcium Total Protein (PEP) 6.2 L Vitamin B12 Urine Color Urine Clarity Urine pH Ur Specific [place] Urine Protein Urine Glucose (UA) Urine Ketones Urine Occult Blood Urine Nitrate Urine Bilirubin Urine Urobilinogen Ur Leukocyte Esterase Urine RBC Urine WBC Ur Squamous Epith Cells Urine Mucus Micro UA Comment Ur Microscopic Review Urine Culture Comments Rheumatoid Factor Scrn Negative Rheumatoid Factor Titer Not Reportable Heparin Dep Plt Ab OD Hep-Induced Plt Ab Jacey - Imaging Impressions Venous Doppler Study 01/17/18 00:00 CONCLUSION: 1. The study is negative for bilateral upper extremity deep venous thrombosis. Lumbar Spine MRI 01/17/18 12:34 CONCLUSION: 1. Unremarkable appearance of the lumbar spine. 2. No evidence of bony or soft tissue metastases. Thoracic Spine MRI 01/17/18 12:34 CONCLUSION: 1. Small enhancing nodules identified along the surface of the spinal cord the lower thoracic spine which may represent intradural extra medullary lesions and drop metastases. 2. Postthoracotomy changes identified in the left lung with large air-fluid levels. 3. No evidence of bony metastases. Aorta w/Runoff CTA 01/17/18 17:39 CONCLUSION: 1. Infarction of the inferior pole of the right kidney of unknown age. 2. Severe chronic appearing infrarenal atherosclerotic disease causing severe narrowing of the distal aorta and proximal inflow vessels. Outflow is noted with diffuse atherosclerotic change below the bifurcation with two-vessel runoff to the feet. Cervical Spine MRI 01/18/18 00:00 CONCLUSION: 1. Degenerated disc with disc protrusions at C4/5 and C5/6. There is a moderate degree of spinal stenosis at these levels. The individual levels are dictated in detail above. No edematous changes are seen within the cervical cord. Head MRI 01/18/18 00:00 CONCLUSION: No acute intracranial findings.
--- NOTE | 2018-01-18 18:55 | ECG ---
Date Performed: 01/17/2018 Time Performed: 19:39:27 PTAGE: 62 years EKG: Sinus rhythm MODERATE INTRAVENTRICULAR CONDUCTION DELAY BORDERLINE ECG NO PREVIOUS TRACING DOCTOR: Juancho Sapp Interpretating Date/Time 01/18/2018 18:51:14
--- NOTE | 2018-01-18 19:42 | MG ---
cc: Deja Hernandez MD EEG NUMBER [id number] REFERRING PHYSICIAN: Ariella. INDICATIONS: Room 1402 with photic stimulation. Awake, drowsy, asleep without any imaging reported. Admitted with lower extremity pain, weakness, history of brain tumor, chemo, lung cancer, on gabapentin and other medicines. DESCRIPTION OF RECORD: The patient has an overall background rhythm of 8 Hz, 20-50 microvolt, symmetrical. No significant attenuation noted. EKG, possible sinus rhythm. Photic stimulation does elicit a driving response. No epileptiform features. IMPRESSION: Overall, normal appearing electroencephalogram without any epileptiform features in this recording. Clinical correlation. Deja Hernandez MD DF/ct , 07:08 PM , 07:15 PM
[2018-01-18] MEDS: Argatroban Inj 250 MG in Sodium Chlor 0.9% Inj 247.5 ML IV.CONT PRN (21:01)
[2018-01-18] MEDS: Temazepam 15 MG Capsule PO PRN (21:06)
[2018-01-19] MEDS: Morphine Inj 4 MG/ML Vial IV.PUSH PRN ×4 (01:11→16:56)
[2018-01-19 03:12] LABS: Baso # (Auto) 0.1 th/mm3 (0.0-0.2); Baso % (Auto) 0.8 % (0.0-2.0); Eos # (Auto) 0.5 th/mm3 (0.0-0.4); Eos % (Auto) 4.5 % (0.0-4.0); Hematocrit 26.3 % (39.0-51.0); Hemoglobin 8.8 gm/dL (13.0-17.0); Lymph # (Auto) 1.7 th/mm3 (1.0-4.8); Mean Corpuscular HGB Conc 33.5 % (32.0-36.0); Mean Corpuscular Volume 95.5 fL (80.0-100.0); Mean Platelet Volume 10.2 fL (7.0-11.0); Mono # (Auto) 1.3 th/mm3 (0.0-0.9); Mono % (Auto) 12.4 % (0.0-8.0); Neut # (Auto) 7.1 th/mm3 (1.8-7.7); Neut % (Auto) 66.3 % (16.0-70.0); Platelet Count 26 th/mm3 (150-450); Red Blood Count 2.76 mil/mm3 (4.50-5.90); Red Cell Distribution Width 16.6 % (11.6-17.2); White Blood Count 10.7 th/mm3 (4.0-11.0)
[2018-01-19 03:25] LABS: Alanine Aminotransferase 30 U/L (12-78); Albumin 2.6 g/dL (3.4-5.0); Anion Gap 9 meq/L (5-15); Aspartate Aminotransferase 53 U/L (15-37); Blood Urea Nitrogen 17 mg/dL (7-18); Calcium 8.1 mg/dL (8.5-10.1); Carbon Dioxide 25.5 meq/L (21.0-32.0); Chloride 109 meq/L (98-107); Glomerular Filtration Rate 49 mL/min (>89); Glucose,Random 90 mg/dL (74-106); Potassium 4.2 meq/L (3.5-5.1); Sodium 143 meq/L (136-145)
[2018-01-19 03:28] LABS: Alkaline Phosphatase 62 U/L (45-117)
[2018-01-19] MEDS: Acetaminophen 500 MG Tablet PO SCH ×3 (06:28→22:00)
[2018-01-19] MEDS: Ibuprofen 200 MG Tablet PO SCH (08:24)
[2018-01-19] MEDS: Folic Acid 1 MG Tablet PO SCH (08:28)
[2018-01-19] MEDS: Gabapentin 100 MG Capsule PO SCH (08:28)
[2018-01-19] MEDS: Metoprolol Tartrate 25 MG Tablet PO SCH ×2 (08:29→20:57)
[2018-01-19] MEDS: Budesonide-Formoterol 160/4.5 MCG 6 GM Inhaler INH SCH ×2 (08:30→20:56)
--- NOTE | 2018-01-19 09:58 | P.PNNEU ---
Subjective Subjective Comments: sr Active Medications: Active Medications Acetaminophen (Tylenol) 500 mg PO Q8HR [facility] Last Admin: 01/19/18 06:28 Dose: 500 mg Acetaminophen (Tylenol) 650 mg PO Q6HR PRN PRN Reason: PAIN SCALE 1 TO 2 Al Hydroxide/Mg Hydroxide (Milk Of Magnesia Liq) 30 ml PO Q12H PRN PRN Reason: Mild Constipation Bisacodyl (Dulcolax Supp) 10 mg RECTAL DAILY PRN PRN Reason: SEVERE CONSITIPATION Budesonide/Formoterol Fumarate (Symbicort 160/4.5 Mcg Inh) 2 puff INH BID [facility] Last Admin: 01/18/18 21:02 Dose: 2 puff Clonidine HCl (Catapres) 0.1 mg PO Q6H PRN PRN Reason: SEE LABEL COMMENTS Folic Acid (Folic Acid) 1 mg PO DAILY [facility] Last Admin: 01/19/18 08:28 Dose: 1 mg Gabapentin (Neurontin) 300 mg PO DAILY [facility] Last Admin: 01/19/18 08:28 Dose: 300 mg Argatroban 250 mg/ Sodium (Chloride) 250 mls @ 0 mls/hr IV.CONT TITRATE PRN; Protocol PRN Reason: Per Protocol Last Titration: 01/19/18 06:50 Dose: 2.5 mcg/kg/min, 10.36 mls/hr Ibuprofen (Advil) 800 mg PO TID [facility] Last Admin: 01/19/18 08:24 Dose: Not Given Lactulose (Lactulose Liq) 30 ml PO DAILY PRN PRN Reason: SEVERE CONSITIPATION Metoprolol Tartrate (Lopressor) 25 mg PO BID [facility] Last Admin: 01/19/18 08:29 Dose: 25 mg Morphine Sulfate (Morphine Inj) 4 mg IV.PUSH Q3H PRN PRN Reason: BREAKTHROUGH PAIN Last Admin: 01/19/18 06:28 Dose: 4 mg Naloxone HCl (Narcan Inj) 0.4 mg IV.PUSH UNSCH PRN PRN Reason: SEE LABEL COMMENTS Oxycodone HCl (Roxicodone) 10 mg PO Q4H PRN PRN Reason: PAIN SCALE 6 TO 10 Last Admin: 01/19/18 08:27 Dose: 10 mg Oxycodone/Acetaminophen (Percocet 5/325 Mg) 1 tab PO Q6H PRN PRN Reason: PAIN SCALE 3 TO 5 Pantoprazole Sodium (Protonix) 40 mg PO DAILY [facility] Last Admin: 01/19/18 08:29 Dose: 40 mg Sennosides (Senokot) 17.2 mg PO Q12H PRN PRN Reason: Moderate Constipation Sodium Chloride (Ns Flush) 2 ml IV.FLUSH PRN PRN PRN Reason: FLUSH AFTER USING IV ACCESS Last Admin: 01/17/18 23:38 Dose: 2 ml Temazepam (Restoril) 15 mg PO HS PRN PRN Reason: INSOMNIA Last Admin: 01/18/18 21:06 Dose: 15 mg Allergies/Adverse Reactions: Allergies Allergy/AdvReac Type Severity Reaction Status Date / Time No Known Allergies Allergy Unverified 01/17/18 11:06 Physical Exam Vital signs: Vital Signs 01/18/18 12:00 01/18/18 16:00 01/18/18 17:54 Temperature 98.2 F 97.9 F Pulse Rate 61 69 Respiratory Rate 18 18 Blood Pressure 157/66 H 170/76 H Pulse Oximetry 94 L 95 95 01/18/18 20:00 01/19/18 00:00 01/19/18 04:00 Temperature 98.1 F 99.8 F H 99.1 F Pulse Rate 67 76 84 Respiratory Rate 18 18 18 Blood Pressure 172/82 H 158/78 H 148/67 H Pulse Oximetry 93 L 93 L 94 L 01/19/18 08:00 Temperature 100.7 F H Pulse Rate 82 Respiratory Rate 20 Blood Pressure 171/77 H Pulse Oximetry 95 Intake & Output 01/18/18 01/19/18 01/19/18 18:59 06:59 18:59 Intake Total 1580 / 1580 109.2 / 109.2 Output Total 500 / 500 Balance 1080 / 1080 109.2 / 109.2 Weight 70.9 kg Intake: IV 1100 / 1100 109.2 / 109.2 Novastan Inj 250 MG In NS Inj 109.2 / 109.2 247.5 ML @ Per Protocol IV.CONT TITRATE PRN Rx#:[id number] NS Inj 1,000 ML @ 70 mls/hr IV. 1100 / 1100 CONT .[id number] [facility] Rx#:[id number] Oral 480 / 480 Output: Urine 500 / 500 Other: # Voids 2 Date of Last Bowel Movement 09/13/18 # Bowel Movements 0 Narrative: gait nl tone nl ble nl / Objective Laboratory Results - last 24 hr 01/17/18 01/18/18 01/18/18 14:01 13:15 13:15 WBC RBC Hgb Hct MCV MCH MCHC RDW Plt Count MPV Prelim Diff (Auto) Neut % (Auto) Lymph % (Auto) [place] % (Auto) Eos % (Auto) Baso % (Auto) Neut # (Auto) Lymph # (Auto) [place] # (Auto) Eos # (Auto) Baso # (Auto) WBC Differential Diff Scan Differential Comment Platelet Estimate Platelet Morphology ESR 30 H APTT Sodium Potassium Chloride Carbon Dioxide Anion Gap BUN Creatinine Estimated GFR Random Glucose Calcium Total Bilirubin AST ALT Alkaline Phosphatase Total Protein Total Protein (PEP) 6.2 L Albumin Albumin (PEP) 3.44 L Albumin/Globulin Ratio 1.25 L Pchjm-3-Tifcgpeqr 0.41 H Hfdkr-8-Qxdsvlbvs 0.61 Beta Globulins 0.86 Gamma Globulins 0.88 Rheumatoid Factor Scrn Negative Rheumatoid Factor Titer Not Reportable Heparin Dep Plt Ab OD 12.837 H Hep-Induced Plt Ab Jacey Positive H 01/18/18 01/19/18 01/19/18 22:42 02:51 02:51 WBC 10.7 RBC 2.76 L Hgb 8.8 L Hct 26.3 L MCV 95.5 MCH 32.0 MCHC 33.5 RDW 16.6 Plt Count 26 L D MPV 10.2 Prelim Diff (Auto) Slide review pending Neut % (Auto) 66.3 Lymph % (Auto) 16.0 [place] % (Auto) 12.4 H Eos % (Auto) 4.5 H Baso % (Auto) 0.8 Neut # (Auto) 7.1 Lymph # (Auto) 1.7 [place] # (Auto) 1.3 H Eos # (Auto) 0.5 H Baso # (Auto) 0.1 WBC Differential . Diff Scan Auto diff confirmed Differential Comment . Platelet Estimate Low L Platelet Morphology Enlarged H ESR APTT 26.2 Sodium 143 Potassium 4.2 Chloride 109 H Carbon Dioxide 25.5 Anion Gap 9 BUN 17 Creatinine 1.44 H Estimated GFR 49 L Random Glucose 90 Calcium 8.1 L Total Bilirubin 0.4 AST 53 H ALT 30 Alkaline Phosphatase 62 Total Protein 6.0 L Total Protein (PEP) Albumin 2.6 L Albumin (PEP) Albumin/Globulin Ratio Tibfr-1-[place] Kdzcg-6-[place] Beta Globulins Gamma Globulins Rheumatoid Factor Scrn Rheumatoid Factor Titer Heparin Dep Plt Ab OD Hep-Induced Plt Ab Jacey 01/19/18 02:51 WBC RBC Hgb Hct MCV MCH MCHC RDW Plt Count MPV Prelim Diff (Auto) Neut % (Auto) Lymph % (Auto) [place] % (Auto) Eos % (Auto) Baso % (Auto) Neut # (Auto) Lymph # (Auto) [place] # (Auto) Eos # (Auto) Baso # (Auto) WBC Differential Diff Scan Differential Comment Platelet Estimate Platelet Morphology ESR APTT 60.3 H D Sodium Potassium Chloride Carbon Dioxide Anion Gap BUN Creatinine Estimated GFR Random Glucose Calcium Total Bilirubin AST ALT Alkaline Phosphatase Total Protein Total Protein (PEP) Albumin Albumin (PEP) Albumin/Globulin Ratio Ifsze-1-Bwxxgugum Mdywp-5-Lbrzqahde Beta Globulins Gamma Globulins Rheumatoid Factor Scrn Rheumatoid Factor Titer Heparin Dep Plt Ab OD Hep-Induced Plt Ab Jacey Review/Management - Review/Management Plan: i austyn zelaya imp cta showed some blockages but does have flow in ble arterial dr hannah not convinced the thoracic abn is met could be vascular? i austyn neurorad check cpk labs hit rx per dr pablo hernandez recently fu echo some infarct in kidney ? 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 i austyn shah
--- NOTE | 2018-01-19 10:30 | P.PNFP ---
Subjective Interval history: Patient seen and examined this morning. No acute events overnight. Patient reports continued pain in his leg. States it is worse when walking or exercising. Does have constant pain at baseline, does get worse with movement. Endorses continued neuropathy on his left posterior calf. Denies any episodes of bleeding. Denies any fever or chills, chest pain or shortness of breath. No abdominal pain. <ChristenjenniferRichard Yesenia - 01/19/18 10:28> Results - Labs Result diagrams: 01/26/18 05:15 01/26/18 05:15 <Carole Ceballos - 01/26/18 15:00> Abnormal lab results 01/24/18 01/25/18 01/25/18 Range/Units 16:20 20:00 20:00 WBC 13.1 H (4.0-11.0) th/mm3 RBC 3.23 L (4.50-5.90) mil/mm3 Hgb 9.6 L (13.0-17.0) gm/dL Hct 29.4 L (39.0-51.0) % RDW 18.3 H (11.6-17.2) % Plt Count 58 L (150-450) th/mm3 Neut % (Auto) 80.6 H (16.0-70.0) % Lymph % (Auto) 6.6 L (9.0-44.0) % Petroleum % (Auto) 8.1 H (0.0-8.0) % Eos % (Auto) 4.3 H (0.0-4.0) % Neut # (Auto) 10.5 H (1.8-7.7) th/mm3 Lymph # (Auto) 0.9 L (1.0-4.8) th/mm3 Petroleum # (Auto) 1.1 H (0.0-0.9) th/mm3 Eos # (Auto) 0.6 H (0.0-0.4) th/mm3 Platelet Estimate Low L (Normal) PT 18.3 H (9.8-11.6) sec APTT 43.7 H (24.3-30.1) sec BUN (7-18) mg/dL Creatinine (0.60-1.30) mg/dL Estimated GFR (>89) mL/min Random Glucose (74-106) mg/dL Calcium (8.5-10.1) mg/dL Prot Corrected Calcium (8.5-10.1) mg/dL AST (15-37) U/L Total Protein (6.4-8.2) g/dL Albumin (3.4-5.0) g/dL Vancomycin Trough (5.0-10.0) mcg/mL MTS Gel Crossmatch See Detail 01/25/18 01/26/18 01/26/18 Range/Units 20:00 00:10 01:45 WBC (4.0-11.0) th/mm3 RBC (4.50-5.90) mil/mm3 Hgb (13.0-17.0) gm/dL Hct (39.0-51.0) % RDW (11.6-17.2) % Plt Count (150-450) th/mm3 Neut % (Auto) (16.0-70.0) % Lymph % (Auto) (9.0-44.0) % Petroleum % (Auto) (0.0-8.0) % Eos % (Auto) (0.0-4.0) % Neut # (Auto) (1.8-7.7) th/mm3 Lymph # (Auto) (1.0-4.8) th/mm3 Petroleum # (Auto) (0.0-0.9) th/mm3 Eos # (Auto) (0.0-0.4) th/mm3 Platelet Estimate (Normal) PT (9.8-11.6) sec APTT 52.2 H (24.3-30.1) sec BUN (7-18) mg/dL Creatinine 1.39 H (0.60-1.30) mg/dL Estimated GFR 51 L (>89) mL/min Random Glucose 131 H (74-106) mg/dL Calcium 7.3 L* D (8.5-10.1) mg/dL Prot Corrected Calcium 7.8 L (8.5-10.1) mg/dL AST (15-37) U/L Total Protein 6.1 L D (6.4-8.2) g/dL Albumin (3.4-5.0) g/dL Vancomycin Trough 15.2 H (5.0-10.0) mcg/mL MTS Gel Crossmatch 01/26/18 01/26/18 01/26/18 Range/Units 05:15 05:15 05:15 WBC 13.8 H (4.0-11.0) th/mm3 RBC 2.77 L (4.50-5.90) mil/mm3 Hgb 8.4 L (13.0-17.0) gm/dL Hct 25.1 L (39.0-51.0) % RDW 18.5 H (11.6-17.2) % Plt Count 48 L (150-450) th/mm3 Neut % (Auto) 80.6 H (16.0-70.0) % Lymph % (Auto) 7.8 L (9.0-44.0) % Petroleum % (Auto) 10.9 H (0.0-8.0) % Eos % (Auto) (0.0-4.0) % Neut # (Auto) 11.1 H (1.8-7.7) th/mm3 Lymph # (Auto) (1.0-4.8) th/mm3 Petroleum # (Auto) 1.5 H (0.0-0.9) th/mm3 Eos # (Auto) (0.0-0.4) th/mm3 Platelet Estimate Low L (Normal) PT (9.8-11.6) sec APTT 56.7 H (24.3-30.1) sec BUN 21 H (7-18) mg/dL Creatinine 1.41 H (0.60-1.30) mg/dL Estimated GFR 51 L (>89) mL/min Random Glucose 110 H (74-106) mg/dL Calcium 7.8 L (8.5-10.1) mg/dL Prot Corrected Calcium (8.5-10.1) mg/dL AST 66 H (15-37) U/L Total Protein 5.8 L (6.4-8.2) g/dL Albumin 2.1 L (3.4-5.0) g/dL Vancomycin Trough (5.0-10.0) mcg/mL MTS Gel Crossmatch Short CBC 01/25/18 01/26/18 Range/Units 20:00 05:15 WBC 13.1 H 13.8 H (4.0-11.0) th/mm3 Hgb 9.6 L 8.4 L (13.0-17.0) gm/dL Hct 29.4 L 25.1 L (39.0-51.0) % Plt Count 58 L 48 L (150-450) th/mm3 BMP 01/25/18 01/26/18 20:00 05:15 Sodium 139 140 Potassium 4.4 4.7 Chloride 105 107 Carbon Dioxide 24.2 25.9 BUN 18 21 H Creatinine 1.39 H 1.41 H Calcium 7.3 L* D 7.8 L Liver Function 01/26/18 Range/Units 05:15 Total Bilirubin 0.5 (0.2-1.0) mg/dL AST 66 H (15-37) U/L ALT 35 (12-78) U/L Alkaline Phosphatase 63 (45-117) U/L Albumin 2.1 L (3.4-5.0) g/dL <Carole Ceballos - 01/26/18 15:00> Abnormal lab results 01/17/18 01/18/18 01/18/18 Range/Units 14:01 13:15 13:15 RBC (4.50-5.90) mil/mm3 Hgb (13.0-17.0) gm/dL Hct (39.0-51.0) % Plt Count (150-450) th/mm3 Petroleum % (Auto) (0.0-8.0) % Eos % (Auto) (0.0-4.0) % Petroleum # (Auto) (0.0-0.9) th/mm3 Eos # (Auto) (0.0-0.4) th/mm3 Platelet Estimate (Normal) Platelet Morphology (Normal) ESR 30 H (0-20) mm/hr APTT (24.3-30.1) sec Chloride (98-107) meq/L Creatinine (0.60-1.30) mg/dL Estimated GFR (>89) mL/min Calcium (8.5-10.1) mg/dL AST (15-37) U/L Total Protein (6.4-8.2) g/dL Total Protein (PEP) 6.2 L (6.4-8.2) gm/dL Albumin (3.4-5.0) g/dL Albumin (PEP) 3.44 L (3.50-5.00) gm/dL Albumin/Globulin Ratio 1.25 L (1.39-2.23) Jovhx-6-Ntznngfzg 0.41 H (0.11-0.29) gm/dL Heparin Dep Plt Ab OD 12.837 H (0.000-1.0) U/mL Hep-Induced Plt Ab Jacey Positive H (Negative) 01/19/18 01/19/18 01/19/18 Range/Units 02:51 02:51 02:51 RBC 2.76 L (4.50-5.90) mil/mm3 Hgb 8.8 L (13.0-17.0) gm/dL Hct 26.3 L (39.0-51.0) % Plt Count 26 L D (150-450) th/mm3 Petroleum % (Auto) 12.4 H (0.0-8.0) % Eos % (Auto) 4.5 H (0.0-4.0) % Petroleum # (Auto) 1.3 H (0.0-0.9) th/mm3 Eos # (Auto) 0.5 H (0.0-0.4) th/mm3 Platelet Estimate Low L (Normal) Platelet Morphology Enlarged H (Normal) ESR (0-20) mm/hr APTT 60.3 H D (24.3-30.1) sec Chloride 109 H (98-107) meq/L Creatinine 1.44 H (0.60-1.30) mg/dL Estimated GFR 49 L (>89) mL/min Calcium 8.1 L (8.5-10.1) mg/dL AST 53 H (15-37) U/L Total Protein 6.0 L (6.4-8.2) g/dL Total Protein (PEP) (6.4-8.2) gm/dL Albumin 2.6 L (3.4-5.0) g/dL Albumin (PEP) (3.50-5.00) gm/dL Albumin/Globulin Ratio (1.39-2.23) Lpttu-1-Osqlzphpl (0.11-0.29) gm/dL Heparin Dep Plt Ab OD (0.000-1.0) U/mL Hep-Induced Plt Ab Jacey (Negative) Short CBC 01/19/18 Range/Units 02:51 WBC 10.7 (4.0-11.0) th/mm3 Hgb 8.8 L (13.0-17.0) gm/dL Hct 26.3 L (39.0-51.0) % Plt Count 26 L D (150-450) th/mm3 BMP 01/19/18 02:51 Sodium 143 Potassium 4.2 Chloride 109 H Carbon Dioxide 25.5 BUN 17 Creatinine 1.44 H Calcium 8.1 L Liver Function 01/19/18 Range/Units 02:51 Total Bilirubin 0.4 (0.2-1.0) mg/dL AST 53 H (15-37) U/L ALT 30 (12-78) U/L Alkaline Phosphatase 62 (45-117) U/L Albumin 2.6 L (3.4-5.0) g/dL <Richard Kuo - 01/19/18 10:28> - Imaging Impressions Neck MRA 01/26/18 00:00 CONCLUSION: 1. Limited exam because of lack of intravenous contrast. 2. Phase contrast study was performed. Correlation ultrasound would be of benefit. Stenosis of the left does not not appear to be hemodynamically significant. _ Percent stenosis is calculated using the diameter of the stenotic region over the diameter of the normal distal internal carotid artery _ Head MRI 01/26/18 10:49 CONCLUSION: 1. Encephalomalacia involving the left occipital lobe with ex vacuo dilatation of the atrium of the left lateral ventricle. 2. No acute infarct, acute hemorrhage, midline shift or extra-axial fluid collections. Head MRA 01/26/18 10:49 CONCLUSION: 1. Anatomic variant of the [place] of [place] as above. 2. Otherwise, intracranial vessels are all patent without aneurysmal disease. Cervical Spine MRI 01/26/18 10:50 CONCLUSION: 1. Small broad-based central to left paracentral focal disc bulges at C4-5 and C5-6 resulting and mild spinal stenosis and mild bilateral foraminal narrowing. Mild facet joint hypertrophy is noted bilaterally at these levels. 2. Minimal diffuse disc bulges at C3-4 and C6-7. 3. Minimal bilateral foraminal narrowing at C3-4. <Carole Ceballos - 01/26/18 15:00> Impressions Cervical Spine MRI 01/18/18 00:00 CONCLUSION: 1. Degenerated disc with disc protrusions at C4/5 and C5/6. There is a moderate degree of spinal stenosis at these levels. The individual levels are dictated in detail above. No edematous changes are seen within the cervical cord. Head MRI 01/18/18 00:00 CONCLUSION: No acute intracranial findings. <Richard Kuo - 01/19/18 10:28> Physical Exam Vital signs: Vital Signs 01/25/18 18:10 01/25/18 18:30 01/25/18 18:45 Temperature 97.8 F Pulse Rate 75 86 89 Respiratory Rate 21 21 21 Blood Pressure 137/65 185/80 H 165/76 H Pulse Oximetry 98 98 98 01/25/18 19:00 01/25/18 19:46 01/25/18 20:00 Temperature 97.6 F 98.1 F Pulse Rate 92 H 87 Respiratory Rate 21 18 Blood Pressure 157/71 H 180/79 H Pulse Oximetry 98 100 98 01/26/18 00:00 01/26/18 04:00 Temperature 98.7 F 99 F Pulse Rate 74 84 Respiratory Rate 16 12 Blood Pressure 161/69 H 174/69 H Pulse Oximetry 97 98 Intake & Output 01/25/18 01/26/18 01/26/18 18:59 06:59 18:59 Intake Total 5250 / 5250 501 / 501 250 / 250 Output Total 1750 / 1750 1650 / 1650 Balance 3500 / 3500 -1149 / -1149 250 / 250 Weight 73.5 kg Intake: IV 250 / 250 501 / 501 250 / 250 Novastan Inj 250 MG In NS Inj 151 / 151 250 / 250 247.5 ML @ Per Protocol IV.CONT TITRATE PRN Rx#:[id number] Maxipime Inj 2,000 MG In NS Inj 100 / 100 100 ML @ 200 mls/hr IV.SIG Q12H SHAVONNE Rx#:[id number] Vancomycin Inj 1,000 MG In NS 250 / 250 250 / 250 Inj 250 ML @ 250 mls/hr IV.SIG Q18H SHAVONNE Rx#:[id number] Anesthesia Amount 4500 / 4500 Mass Transfusion Protocol 500 / 500 Output: Urine 1500 / 1500 Estimated Blood Loss 250 / 250 Urine Amount (Catheter) 1650 / 1650 Indwelling Urethral Catheter 1650 / 1650 Other: # Voids 1 Date of Last Bowel Movement 01/19/18 <Carole Ceballos - 01/26/18 15:00> Vital Signs 01/18/18 12:00 01/18/18 16:00 01/18/18 17:54 Temperature 98.2 F 97.9 F Pulse Rate 61 69 Respiratory Rate 18 18 Blood Pressure 157/66 H 170/76 H Pulse Oximetry 94 L 95 95 01/18/18 20:00 01/19/18 00:00 01/19/18 04:00 Temperature 98.1 F 99.8 F H 99.1 F Pulse Rate 67 76 84 Respiratory Rate 18 18 18 Blood Pressure 172/82 H 158/78 H 148/67 H Pulse Oximetry 93 L 93 L 94 L 01/19/18 08:00 Temperature 100.7 F H Pulse Rate 82 Respiratory Rate 20 Blood Pressure 171/77 H Pulse Oximetry 95 Intake & Output 01/18/18 01/19/18 01/19/18 18:59 06:59 18:59 Intake Total 1580 / 1580 109.2 / 109.2 Output Total 500 / 500 Balance 1080 / 1080 109.2 / 109.2 Weight 70.9 kg Intake: IV 1100 / 1100 109.2 / 109.2 Novastan Inj 250 MG In NS Inj 109.2 / 109.2 247.5 ML @ Per Protocol IV.CONT TITRATE PRN Rx#:[id number] NS Inj 1,000 ML @ 70 mls/hr IV. 1100 / 1100 CONT .[id number] SHAVONNE Rx#:[id number] Oral 480 / 480 Output: Urine 500 / 500 Other: # Voids 2 Date of Last Bowel Movement 01/18/18 # Bowel Movements 0 <Richard Kuo - 01/19/18 10:28> Narrative: GENERAL: lying in bed, NAD SKIN: Warm and dry. CARDIOVASCULAR: Regular rate and rhythm. RESPIRATORY: No accessory muscle use. Clear to auscultation. Breath sounds equal bilaterally. GASTROINTESTINAL: Abdomen soft, non-tender, nondistended. MUSCULOSKELETAL: Decreased sensation on left posterior calf. 5 out of 5 strength bilaterally. No tenderness to palpation. Bilateral feet are cold to touch. NEUROLOGICAL: Awake and alert. No obvious cranial nerve deficits. Normal speech. PSYCHIATRIC: Appropriate mood and affect; insight and judgment normal. <Richard Kuo Yesenia - 01/19/18 10:28> Assessment and Plan - Assessment (1) Pain in both lower legs Code(s): M79.661 - Pain in right lower leg; M79.662 - Pain in left lower leg Status: Acute (2) Heparin induced thrombocytopenia Code(s): D75.82 - Heparin induced thrombocytopenia (HIT) Status: Acute (3) Hypertension Code(s): I10 - Essential (primary) hypertension Status: Acute (4) EVON (acute kidney injury) Code(s): N17.9 - Acute kidney failure, unspecified Status: Acute (5) SIRS (systemic inflammatory response syndrome) Code(s): R65.10 - Systemic inflammatory response syndrome (SIRS) of non- infectious origin without acute organ dysfunction Status: Resolved (6) Metastatic primary lung cancer Code(s): C34.90 - Malignant neoplasm of unspecified part of unspecified bronchus or lung Status: Acute (7) Thrombosis of right saphenous vein Code(s): I82.811 - Embolism and thrombosis of superficial veins of right lower extremity Status: Acute (8) Anemia Code(s): D64.9 - Anemia, unspecified Status: Acute (9) Avascular necrosis of hip Code(s): M87.059 - Idiopathic aseptic necrosis of unspecified femur Status: Acute (10) Atrial fibrillation Code(s): I48.91 - Unspecified atrial fibrillation Status: Acute (11) Nutrition, metabolism, and development symptoms Code(s): R63.8 - Other symptoms and signs concerning food and fluid intake Status: Acute <Carole Ceballos - 01/26/18 15:00> (1) Pain in both lower legs Code(s): M79.661 - Pain in right lower leg; M79.662 - Pain in left lower leg Status: Acute Plan: Patient presented after worsening pain and weakness in bilateral legs. Upon further discussion with patient, has signs and symptoms of peripheral arterial disease Aorta CTA shows severe atherosclerotic disease with severe narrowing of distal aorta -Mural thrombus at level of distal aorta -Infarction of the inferior right kidney MRI with no acute findings Cervical MRI shows stenosis Thoracic MRI with possible drop mets Lumbar MRI wnl EEG wnl -Vascular consulted-appreciate recs -Heme/onc consulted -Pt with ischemic pain -Treating HIT with argatroban -Neurology consulted-appreciate recs -Started on Gabapentin, may benefit from increase -possible pending LP, holding due to thrombocytopenia -PT evaluating -recommend home health -Oxycodone and percocet PRN pain (2) Heparin induced thrombocytopenia Code(s): D75.82 - Heparin induced thrombocytopenia (HIT) Status: Acute Plan: Postop day #12 from lobectomy and s/p heparin 9 days on admission Heparin-induced thrombocytopenia antibody positive No transfusion recommended at this time due to possibility of further coagulation Hold all heparin forms Heme/onc consulted-HIT with thrombosis -Started argatroban gtt (3) Metastatic primary lung cancer Code(s): C34.90 - Malignant neoplasm of unspecified part of unspecified bronchus or lung Status: Acute Plan: Status post chemo in November, status post lobectomy Recent PET scans negative MRI spine shows possible mets Repeat brain MRI with no acute change -Management per oncology team -Regarding possible drop mets -Unsure of etiology at this time -Radiation oncology consulted -No therapy at this time due to low platelets -Possible repeat of T-spine MRI in 7-10 days (4) Thrombosis of right saphenous vein Code(s): I82.811 - Embolism and thrombosis of superficial veins of right lower extremity Status: Acute Plan: Lower extremity superficial vein, generally benign and self-limited however a larger vein is involved in this case Caution with propagation into the DVT system and PE possibility Likely due to abnormal coagulation at this time may repeat duplex ultrasound with further clinical signs Elevation Warm and cool compresses Compression stockings Pain management (5) Anemia Code(s): D64.9 - Anemia, unspecified Status: Acute Plan: No history of anemia per patient Likely chronic anemia, patient at high risk for bleeding due to thrombocytopenia Unsure of the exact cause, chemotherapy vs recent surgery vs chronic anemia (6) Atrial fibrillation Code(s): I48.91 - Unspecified atrial fibrillation Status: Acute Plan: History of Afib. Controlled rate Echo shows EF of 50-55% Segmental wall motion abnormalities with hypokinesis Continue telemetry Continue metoprolol Watch for arrhythmias (7) Nutrition, metabolism, and development symptoms Code(s): R63.8 - Other symptoms and signs concerning food and fluid intake Status: Acute Plan: Fluids: Tolerating PO Electrolytes: Follow-up BMP and replete as needed Nutrition: Regular diet DVT prophylaxis: Holding all heparin products, agratroban gtt <Richard Kuo - 01/19/18 09:45> - Attending Attestation The exam, history, and the medical decision-making described in the above note were completed with the assistance of the resident physician. I reviewed and agree with the findings presented. I attest that I had a [id number] encounter with the patient on the same day, and personally performed and documented my assessment and findings in the medical record. very slow but steady rise in platelets. <Carole Ceballos - 01/26/18 15:00> <Richard Kuo - Last Filed: 01/19/18 09:45> (5) Anemia Qualifiers: Anemia type: bone marrow failure Bone marrow failure anemia type: pancytopenia, antineoplastic chemotherapy-induced Qualified Code(s): D61.810 - Antineoplastic chemotherapy induced pancytopenia; T45.1X5A - Adverse effect of antineoplastic and immunosuppressive drugs, initial encounter <Carole Ceballos - Last Filed: 01/26/18 15:00> (8) Anemia Qualifiers: Anemia type: bone marrow failure Bone marrow failure anemia type: pancytopenia, antineoplastic chemotherapy-induced Qualified Code(s): D61.810 - Antineoplastic chemotherapy induced pancytopenia; T45.1X5A - Adverse effect of antineoplastic and immunosuppressive drugs, initial encounter (9) Avascular necrosis of hip Qualifiers: Laterality: right Qualified Code(s): M87.051 - Idiopathic aseptic necrosis of right femur <Richard Kuo - Last Filed: 01/19/18 09:45> (5) Anemia Qualifiers: Anemia type: bone marrow failure Bone marrow failure anemia type: pancytopenia, antineoplastic chemotherapy-induced Qualified Code(s): D61.810 - Antineoplastic chemotherapy induced pancytopenia; T45.1X5A - Adverse effect of antineoplastic and immunosuppressive drugs, initial encounter <Carole Ceballos - Last Filed: 01/26/18 15:00> (8) Anemia Qualifiers: Anemia type: bone marrow failure Bone marrow failure anemia type: pancytopenia, antineoplastic chemotherapy-induced Qualified Code(s): D61.810 - Antineoplastic chemotherapy induced pancytopenia; T45.1X5A - Adverse effect of antineoplastic and immunosuppressive drugs, initial encounter (9) Avascular necrosis of hip Qualifiers: Laterality: right Qualified Code(s): M87.051 - Idiopathic aseptic necrosis of right femur
[2018-01-19 11:54] LABS: Anti-Nuclear Antibody Screen Neg (Neg)
--- NOTE | 2018-01-19 13:44 | P.PNVS ---
Subjective Subjective/Hospital Course: Patient seen and full consult dictated We will follow Thanks J Objective Vital Signs / I&O: Vital Signs 01/18/18 16:00 01/18/18 17:54 01/18/18 20:00 Temperature 97.9 F 98.1 F Pulse Rate 69 67 Respiratory Rate 18 18 Blood Pressure 170/76 H 172/82 H Pulse Oximetry 95 95 93 L 01/19/18 00:00 01/19/18 04:00 01/19/18 08:00 Temperature 99.8 F H 99.1 F 100.7 F H Pulse Rate 76 84 81 Respiratory Rate 18 18 20 Blood Pressure 158/78 H 148/67 H 171/77 H Pulse Oximetry 93 L 94 L 95 01/19/18 09:00 01/19/18 12:00 Temperature 99.5 F Pulse Rate 94 H Respiratory Rate 20 Blood Pressure 110/65 Pulse Oximetry 92 L 93 L Intake & Output 01/18/18 01/19/18 01/19/18 18:59 06:59 18:59 Intake Total 1580 / 1580 109.2 / 109.2 Output Total 500 / 500 Balance 1080 / 1080 109.2 / 109.2 Weight 70.9 kg Intake: IV 1100 / 1100 109.2 / 109.2 Novastan Inj 250 MG In NS Inj 109.2 / 109.2 247.5 ML @ Per Protocol IV.CONT TITRATE PRN Rx#:[id number] NS Inj 1,000 ML @ 70 mls/hr IV. 1100 / 1100 CONT .[id number] SHAVONNE Rx#:[id number] Oral 480 / 480 Output: Urine 500 / 500 Other: # Voids 2 Date of Last Bowel Movement 01/18/18 01/18/18 # Bowel Movements 0 Laboratory Results - last 24 hr 01/18/18 01/18/18 01/18/18 13:15 13:15 13:15 WBC RBC Hgb Hct MCV MCH MCHC RDW Plt Count MPV Prelim Diff (Auto) Neut % (Auto) Lymph % (Auto) Mellette % (Auto) Eos % (Auto) Baso % (Auto) Neut # (Auto) Lymph # (Auto) [place] # (Auto) Eos # (Auto) Baso # (Auto) WBC Differential Diff Scan Differential Comment Platelet Estimate Platelet Morphology ESR 30 H APTT Sodium Potassium Chloride Carbon Dioxide Anion Gap BUN Creatinine Estimated GFR Random Glucose Calcium Total Bilirubin AST ALT Alkaline Phosphatase Total Protein Total Protein (PEP) 6.2 L Albumin Albumin (PEP) 3.44 L Albumin/Globulin Ratio 1.25 L Hxpnu-1-Updqxqzoi 0.41 H Dusvr-3-Xuwefjixg 0.61 Beta Globulins 0.86 Gamma Globulins 0.88 Rheumatoid Factor Scrn Negative Rheumatoid Factor Titer Not Reportable ATILIO Screen Neg RPR Nonreactive 01/18/18 01/19/18 01/19/18 22:42 02:51 02:51 WBC 10.7 RBC 2.76 L Hgb 8.8 L Hct 26.3 L MCV 95.5 MCH 32.0 MCHC 33.5 RDW 16.6 Plt Count 26 L D MPV 10.2 Prelim Diff (Auto) Slide review pending Neut % (Auto) 66.3 Lymph % (Auto) 16.0 [place]lette % (Auto) 12.4 H Eos % (Auto) 4.5 H Baso % (Auto) 0.8 Neut # (Auto) 7.1 Lymph # (Auto) 1.7 Mellette # (Auto) 1.3 H Eos # (Auto) 0.5 H Baso # (Auto) 0.1 WBC Differential . Diff Scan Auto diff confirmed Differential Comment . Platelet Estimate Low L Platelet Morphology Enlarged H ESR APTT 26.2 Sodium 143 Potassium 4.2 Chloride 109 H Carbon Dioxide 25.5 Anion Gap 9 BUN 17 Creatinine 1.44 H Estimated GFR 49 L Random Glucose 90 Calcium 8.1 L Total Bilirubin 0.4 AST 53 H ALT 30 Alkaline Phosphatase 62 Total Protein 6.0 L Total Protein (PEP) Albumin 2.6 L Albumin (PEP) Albumin/Globulin Ratio Fbrlf-0-Wfkdsseql Cagyl-8-Arysjuxmg Beta Globulins Gamma Globulins Rheumatoid Factor Scrn Rheumatoid Factor Titer ATILIO Screen RPR 01/19/18 01/19/18 02:51 08:25 WBC RBC Hgb Hct MCV MCH MCHC RDW Plt Count MPV Prelim Diff (Auto) Neut % (Auto) Lymph % (Auto) [place] % (Auto) Eos % (Auto) Baso % (Auto) Neut # (Auto) Lymph # (Auto) [place] # (Auto) Eos # (Auto) Baso # (Auto) WBC Differential Diff Scan Differential Comment Platelet Estimate Platelet Morphology ESR APTT 60.3 H D 58.4 H Sodium Potassium Chloride Carbon Dioxide Anion Gap BUN Creatinine Estimated GFR Random Glucose Calcium Total Bilirubin AST ALT Alkaline Phosphatase Total Protein Total Protein (PEP) Albumin Albumin (PEP) Albumin/Globulin Ratio Asvxl-3-Ehvnuxwkm Ljihz-3-Gppthxfxf Beta Globulins Gamma Globulins Rheumatoid Factor Scrn Rheumatoid Factor Titer ATILIO Screen RPR Impressions Chest X-Ray 01/17/18 00:00 CONCLUSION: Left lung cavities with air-fluid levels which may be postsurgical Status post left thoracotomy Pleural-parenchymal scarring right upper lobe Venous Doppler Study 01/17/18 00:00 CONCLUSION: 1. The study is negative for bilateral upper extremity deep venous thrombosis. Lumbar Spine MRI 01/17/18 12:34 CONCLUSION: 1. Unremarkable appearance of the lumbar spine. 2. No evidence of bony or soft tissue metastases. Thoracic Spine MRI 01/17/18 12:34 CONCLUSION: 1. Small enhancing nodules identified along the surface of the spinal cord the lower thoracic spine which may represent intradural extra medullary lesions and drop metastases. 2. Postthoracotomy changes identified in the left lung with large air-fluid levels. 3. No evidence of bony metastases. Aorta w/Runoff CTA 01/17/18 17:39 CONCLUSION: 1. Infarction of the inferior pole of the right kidney of unknown age. 2. Severe chronic appearing infrarenal atherosclerotic disease causing severe narrowing of the distal aorta and proximal inflow vessels. Outflow is noted with diffuse atherosclerotic change below the bifurcation with two-vessel runoff to the feet. Cervical Spine MRI 01/18/18 00:00 CONCLUSION: 1. Degenerated disc with disc protrusions at C4/5 and C5/6. There is a moderate degree of spinal stenosis at these levels. The individual levels are dictated in detail above. No edematous changes are seen within the cervical cord. Head MRI 01/18/18 00:00 CONCLUSION: No acute intracranial findings.
--- NOTE | 2018-01-19 14:01 | MB ---
cc: Aimee Fink MD DATE: 01/19/2018 REASON FOR CONSULTATION: Aortoiliac occlusion. HISTORY OF PRESENT ILLNESS: The patient is a 62-year-old gentleman has known metastatic lung cancer. The patient was diagnosed a few years ago and underwent chemoradiation therapy and surgical resection of the lung mass. About 6 months ago, he developed brain metastasis and he was treated with surgical resection and radiation therapy in [place]. Patient now comes to the hospital after about 4 days of sudden weakness in both legs and pain radiating to both his legs. Question arises about vascular versus neurologic origins of the same. PAST MEDICAL HISTORY: Is that of known lung cancer as above noted with metastasis and a brain tumor treated for the same, as well as heparin-induced thrombocytopenia and thrombocytopenia at this time. SOCIAL HISTORY: The patient smoked for about 45 years, about 2 packs a day. Socially drinks. PHYSICAL EXAMINATION: GENERAL: Reveals a 62-year-old gentleman, somewhat thin. HEENT: Normocephalic. No trauma to the head. Pupils are equal and reactive. Extraocular muscles intact. NECK: Bilateral carotid pulses and scattered lymph nodes, but no packets. HEART: Regular rhythm. LUNGS: Bilateral breath sounds with moderate COPD, decreased over both lung stewart, scarred from previous surgery. ABDOMEN: Soft, active bowel sounds, slightly patulous. EXTREMITIES: The patient has no palpable pulses. He has weak dopplerable bilateral femoral pulses, dopplerable popliteal pulses and dopplerable posterior tibial and anterior tibial pulses. Feet are warm. Capillary refill is slightly decreased. The patient does not have stigmata of impending limb loss such as gangrene, ulceration or ischemic pain at rest. NEUROLOGIC: The patient is intact; however, he is very weak in both lower extremities. IMPRESSION: I reviewed laboratory and diagnostic procedures: 1. The patient has significant aortoiliac disease with very narrowed abdominal aorta starting from about 3 inches below the renals, going all the way down into the iliacs. The common iliacs are nearly occluded and this extends to the external iliac arteries; however, there is flow in both of these. 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 The patient in addition, has scattered vascular disease in both legs with 2/3 vessel runoff on both sides. He currently does not have acute vascular ischemia. 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 2. The patient has known metastatic lung disease. The changes in the thoracic spine are consistent with metastatic disease. This is definitely unlikely benign disease. 3. Based on all of the above, this patient's pain is most likely due to the spinal disease rather than vascular occlusive disease; while he has both, the vascular disease is not critical and there is no limb threatening ischemia at this time. Sudden onset of pain about 3-4 days ago with weakness is not characteristic or consistent with vascular changes, but rather with neurologic changes. Therefore, this has to be addressed first. 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 Both of these conditions, at this time make him a non-candidate for any vascular reconstruction that is not imminently endangering the patient's life, or is emergent. In the near future, should the clinical picture improve and the thoracic spine changes are more elucidated and treated, patient may become a candidate for some vascular construction. He would definitely not be an aortobifemoral bypass candidate; however, he may be a suitable candidate for axillobifemoral bypass. Right now, I do not plan to do any surgery until thrombocytopenia resolves and and at least partial corrects, as well until the spinal changes more elucidated and treated. I will continue to follow the patient with you. CRITICAL CARE TIME: Thirty-eight minutes. MD JENNIFER López/michelle , 01:28 PM , 01:40 PM VINI
--- NOTE | 2018-01-19 16:47 | P.PNONC ---
Subjective Interval history: Patient states that his legs are feeling better. Last night he again had severe pain in his both calves twice in the middle the night. Now he does not have any pain. He said that he did not take any pain medication today since the pain has resolved No bleeding. Denies any numbness or tingling of the toes and fingers. He is complaining of pain in both soles. Objective Vital Signs/Intake & Output: Vital Signs 01/18/18 17:54 01/18/18 20:00 01/19/18 00:00 Temperature 98.1 F 99.8 F H Pulse Rate 67 76 Respiratory Rate 18 18 Blood Pressure 172/82 H 158/78 H Pulse Oximetry 95 93 L 93 L 01/19/18 04:00 01/19/18 08:00 01/19/18 09:00 Temperature 99.1 F 100.7 F H Pulse Rate 84 81 Respiratory Rate 18 20 Blood Pressure 148/67 H 171/77 H Pulse Oximetry 94 L 95 92 L 01/19/18 12:00 Temperature 99.5 F Pulse Rate 94 H Respiratory Rate 20 Blood Pressure 110/65 Pulse Oximetry 93 L Intake & Output 01/18/18 01/19/18 01/19/18 18:59 06:59 18:59 Intake Total 1580 / 1580 109.2 / 109.2 Output Total 500 / 500 Balance 1080 / 1080 109.2 / 109.2 Weight 70.9 kg Intake: IV 1100 / 1100 109.2 / 109.2 Novastan Inj 250 MG In NS Inj 109.2 / 109.2 247.5 ML @ Per Protocol IV.CONT TITRATE PRN Rx#:[id number] NS Inj 1,000 ML @ 70 mls/hr IV. 1100 / 1100 CONT .[id number] [facility] Rx#:[id number] Oral 480 / 480 Output: Urine 500 / 500 Other: # Voids 2 Date of Last Bowel Movement 01/18/18 01/18/18 # Bowel Movements 0 Result Diagrams: 01/19/18 02:51 01/19/18 02:51 Laboratory Results: Laboratory Results - last 24 hr 01/18/18 01/18/18 01/18/18 13:15 13:15 22:42 WBC RBC Hgb Hct MCV MCH MCHC RDW Plt Count MPV Prelim Diff (Auto) Neut % (Auto) Lymph % (Auto) [place] % (Auto) Eos % (Auto) Baso % (Auto) Neut # (Auto) Lymph # (Auto) [place] # (Auto) Eos # (Auto) Baso # (Auto) WBC Differential Diff Scan Differential Comment Platelet Estimate Platelet Morphology APTT 26.2 Sodium Potassium Chloride Carbon Dioxide Anion Gap BUN Creatinine Estimated GFR Random Glucose Calcium Total Bilirubin AST ALT Alkaline Phosphatase Total Protein Albumin Albumin (PEP) 3.44 L Albumin/Globulin Ratio 1.25 L Upjag-2-Ibofmfvat 0.41 H Azmcv-3-Maeuhjjos 0.61 Beta Globulins 0.86 Gamma Globulins 0.88 ATILIO Screen Neg RPR Nonreactive 01/19/18 01/19/18 01/19/18 02:51 02:51 02:51 WBC 10.7 RBC 2.76 L Hgb 8.8 L Hct 26.3 L MCV 95.5 MCH 32.0 MCHC 33.5 RDW 16.6 Plt Count 26 L D MPV 10.2 Prelim Diff (Auto) Slide review pending Neut % (Auto) 66.3 Lymph % (Auto) 16.0 [place] % (Auto) 12.4 H Eos % (Auto) 4.5 H Baso % (Auto) 0.8 Neut # (Auto) 7.1 Lymph # (Auto) 1.7 [place] # (Auto) 1.3 H Eos # (Auto) 0.5 H Baso # (Auto) 0.1 WBC Differential . Diff Scan Auto diff confirmed Differential Comment . Platelet Estimate Low L Platelet Morphology Enlarged H APTT 60.3 H D Sodium 143 Potassium 4.2 Chloride 109 H Carbon Dioxide 25.5 Anion Gap 9 BUN 17 Creatinine 1.44 H Estimated GFR 49 L Random Glucose 90 Calcium 8.1 L Total Bilirubin 0.4 AST 53 H ALT 30 Alkaline Phosphatase 62 Total Protein 6.0 L Albumin 2.6 L Albumin (PEP) Albumin/Globulin Ratio Mrthf-2-Zkuiuktyq Nlgcb-6-Izcljowdn Beta Globulins Gamma Globulins ATILIO Screen RPR 01/19/18 08:25 WBC RBC Hgb Hct MCV MCH MCHC RDW Plt Count MPV Prelim Diff (Auto) Neut % (Auto) Lymph % (Auto) [place] % (Auto) Eos % (Auto) Baso % (Auto) Neut # (Auto) Lymph # (Auto) [place] # (Auto) Eos # (Auto) Baso # (Auto) WBC Differential Diff Scan Differential Comment Platelet Estimate Platelet Morphology APTT 58.4 H Sodium Potassium Chloride Carbon Dioxide Anion Gap BUN Creatinine Estimated GFR Random Glucose Calcium Total Bilirubin AST ALT Alkaline Phosphatase Total Protein Albumin Albumin (PEP) Albumin/Globulin Ratio Dbpzk-0-Vpxtsnmah Fyuov-9-Xhafkjgsc Beta Globulins Gamma Globulins ATILIO Screen RPR Medications: Active Medications Generic Name Dose Route Start Last Admin Trade Name Freq PRN Reason Stop Dose Admin Acetaminophen 500 mg 01/17/18 14:00 01/19/18 06:28 Tylenol PO 500 mg Q8HR SHAVONNE Administration Budesonide/Formoterol Fumarate 2 puff 01/17/18 14:00 01/19/18 08:30 Symbicort 160/4.5 Mcg Inh INH 2 puff BID SHAVONNE Administration Folic Acid 1 mg 01/17/18 13:45 01/19/18 08:28 Folic Acid PO 1 mg DAILY SHAVONNE Administration Gabapentin 300 mg 01/18/18 09:00 01/19/18 08:28 Neurontin PO 300 mg DAILY SHAVONNE Administration Argatroban 250 mg/ Sodium 250 mls @ 0 mls/hr 01/18/18 15:00 01/19/18 06:50 Chloride IV.CONT 2.5 mcg/kg/min TITRATE PRN 10.36 mls/hr Per Protocol Titration Protocol Per Protocol Metoprolol Tartrate 25 mg 01/17/18 13:45 01/19/18 08:29 Lopressor PO 25 mg BID SHAVONNE Administration Morphine Sulfate 4 mg 01/18/18 02:56 01/19/18 12:05 Morphine Inj IV.PUSH 4 mg Q3H PRN Administration BREAKTHROUGH PAIN Oxycodone HCl 10 mg 01/18/18 02:56 01/19/18 08:27 Roxicodone PO 10 mg Q4H PRN Administration PAIN SCALE 6 TO 10 Pantoprazole Sodium 40 mg 01/17/18 14:00 01/19/18 08:29 Protonix PO 40 mg DAILY SHAVONNE Administration Sodium Chloride 2 ml 01/17/18 11:17 01/17/18 23:38 Ns Flush IV.FLUSH 2 ml PRN PRN Administration FLUSH AFTER USING IV ACCESS Temazepam 15 mg 01/17/18 21:00 01/18/18 21:06 Restoril PO 15 mg HS PRN Administration INSOMNIA Objective Remarks: GENERAL: Well-nourished, well-developed patient. SKIN: Warm and dry. HEAD: Normocephalic. EYES: No scleral icterus. No injection or drainage. NECK: Supple, trachea midline. No JVD or lymphadenopathy. LYMPHATIC: No adenopathy. CARDIOVASCULAR: Regular rate and rhythm without murmurs. RESPIRATORY: Breath sounds equal bilaterally. No accessory muscle use. GASTROINTESTINAL: Abdomen soft, non-tender, nondistended. EXTREMITIES: No cyanosis, or edema. MUSCULOSKELETAL: Adequate muscle tone. NEUROLOGICAL: No obvious focal deficit. Awake, alert, and oriented x3. PSYCHIATRIC: Appropriate mood and affect; insight and judgment normal. 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 Bernstein is a pleasant 62-year-old gentleman with a history of non-small cell lung cancer with brain metastasis, status post craniotomy with resection followed by stereotactic radiosurgery with gamma knife, 3-4 cycles of preop Immunochemotherapy with 2 doses of Platinol and Alimta he also underwent thoracotomy and resection of the left upper lobe and wedge resection of the left lower lobe on 01/01/2018. Patient had minimal residual disease of 0.6 cm and also the lymph nodes were negative. Margins were also negative. During this admission the patient was found to have severe thrombocytopenia. Patient did have recent exposure to subcutaneous heparin after his recent surgery. Plan: 1. Non-small cell lung cancer with brain metastasis, status post above treatments. MR thoracic spine on 01/17/2018 showed some small enhancing nodules identified along the surface of the spinal cord in the lower thoracic spine dural extra medullary lesions and drop metastasis. Dr. shah discussed these results with the patient. Neurosurgery has been consulted, they report the thoracic abnormality could also be vascular vs. mets. Neuro workup is pending. 2. 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 The patient will be started on argatroban. CHAI pending. Avoid heparin exposure. Monitor for bleeding. No transfusions warranted at this time. 3. Thrombosis of right saphenous vein. Starting argatrpban drip for thrombocytopenia. 4. Pain and generalized weakness in lower extremities. CTA with runoff showed infarction of the inferior pole of the right kidney of unknown age. Severe chronic appearing infrarenal atherosclerotic disease causing severe narrowing of the distal aorta and proximal inflow vessels. Outflow is noted with diffuse atherosclerotic change below the bifurcation with 2 vessel runoff to the feet. Patient possibly experiencing claudication pain. - Attending Statement Patient is tolerating her Argatroban drip without having any problems so far. PTT is therapeutic. Platelets are coming up. Platelets count is 26 today. CHAI is still pending. Once platelet count reach above 100 then we will transition to oral anticoagulant. We should label him that he should not get any heparin or Lovenox. He should not have even heparin flushes. I had an extensive discussion with the patient and his at the bedside. They have multiple questions and these were answered to their satisfaction. I had also called his oncologist in [place] Dr. Dillard. I have discussed the case with him. We have faxed some of the records for his evaluation. Regarding the thoracic spine lesion we will repeat the MRI of the thoracic spine in 2 weeks or so and see if there are any changes. Case has been discussed with Dr. Medina and Dr. Corado. I am off this weekend and Dr. Phelps will cover me.
--- NOTE | 2018-01-19 19:02 | P.PNNS ---
Subjective Interval history: This is a 62 y/o male who woke up last night with severe pain in lower extremities bilaterally. The pain was so severe that it woke him up at 2AM this morning. He reports terrible muscle cramps and also a "pins and needles" sensation in both legs and feet bilaterally. He woke up his and said he didn't think he could make it to the bathroom due to the pain. Even with the walker his legs "could not work" and he fell coming back from the bathroom. He continued to have pain overnight despite percocet and leg massage. When he woke up this morning he felt OK, was able to walk, then it started to hurt again. He sat down in the recliner and the pain returned and he was unable to get back out of the chair. He had to crawl to his walker. They called their Nurse Practitioner from the recent surgery, and they were told to come into the ER for a venous duplex. Mr Bernstein has been constipated from his pain medication post-op, but had a BM this morning. No changes in urination. He denies numbness/parasthesias around his rectum (could not feel wiping his bottom last night). He does not think he had any parasthesias during the BM this morning. Denies focal weakness. He denies sensory loss. He denies incontinwence of sool or urine. MRI was done. Neurosurgery consultation was requested 01/18. Patient pain is better. Moves well his extremities Physical Exam Vital signs: Vital Signs 01/18/18 20:00 01/19/18 00:00 01/19/18 04:00 Temperature 98.1 F 99.8 F H 99.1 F Pulse Rate 67 76 84 Respiratory Rate 18 18 Blood Pressure 172/82 H 158/78 H 148/67 H Pulse Oximetry 93 L 93 L 94 L 01/19/18 08:00 01/19/18 09:00 01/19/18 12:00 Temperature 100.7 F H 99.5 F Pulse Rate 81 94 H Respiratory Rate 20 20 Blood Pressure 171/77 H 110/65 Pulse Oximetry 95 92 L 93 L 01/19/18 16:00 Temperature 99.4 F Pulse Rate 84 Respiratory Rate 20 Blood Pressure 159/77 H Pulse Oximetry 93 L Intake & Output 01/19/18 01/19/18 01/20/18 06:59 18:59 06:59 Intake Total 109.2 / 109.2 Balance 109.2 / 109.2 Weight 70.9 kg Intake: IV 109.2 / 109.2 Novastan Inj 250 MG In NS Inj 109.2 / 109.2 247.5 ML @ Per Protocol IV.CONT TITRATE PRN Rx#:[id number] Other: Date of Last Bowel Movement 01/18/18 01/18/18 Narrative: Mr. Bernstein is alert, awake. Comfortable, in no acute distress. Speech is fluent. Cranial nerve examination: pupils to be equal, round and reactive to light. Extra-ocular movements are intact. Facial motor and sensory function are normal and symmetrical. Gross hearing appears intact. Sternocleidomastoid and trapezius muscles are symmetrical. Other cranial nerves are intact. Neck is soft and supple with a good range of motion without pain. Muscle strength is good and symmetrical in all muscle groups of both upper and lower extremities. Sensory examination is intact to light touch and pin prick in both the upper and lower extremities. Deep tendon reflexes are symmetrical in both upper and lower extremities. There is a bilateral plantar flexion response. Cerebellar examination is unremarkable, without deficits. Lungs are decreased bilat Heart regular rhythm is regular rate Skin warm and dry - Urinary Catheter Management Indwelling Urethral Catheter Cath placed during this visit: yes Reason for continuing: Hourly intake/output Insertion date: 01/25/18 Insertion time: 12:59 Assessment and Plan - Plan I have reviewed the clinical and radiological findings Chest X-Ray 01/17/18 00:00 CONCLUSION: Left lung cavities with air-fluid levels which may be postsurgical Status post left thoracotomy Pleural-parenchymal scarring right upper lobe Venous Doppler Study 01/17/18 11:22 CONCLUSION: 1. Occlusive thrombus is seen in the greater saphenous vein on the right. Lumbar Spine MRI 01/17/18 12:34 CONCLUSION: 1. Unremarkable appearance of the lumbar spine. 2. No evidence of bony or soft tissue metastases. Thoracic Spine MRI 01/17/18 12:34 CONCLUSION: 1. Small enhancing nodules identified along the surface of the spinal cord the lower thoracic spine which may represent intradural extra medullary lesions and drop metastases. 2. Postthoracotomy changes identified in the left lung with large air-fluid levels. 3. No evidence of bony metastases. Neuro: neuro checks in a serial fashion. No surgical intervention is indicated for thoracic spine lesions. Consult radiation oncology Pulmonary: aggressive pulmonary toilette, nasotracheal suction, and breathing treatments with nebulizers. Metastatic primary lung cancer Code(s): C34.90 - Malignant neoplasm of unspecified part of unspecified bronchus or lung Status: Acute Plan: Status post chemo, status post lobectomy Recent PET scans negative Recommend follow-up MRI of cervical spine and brain to assess for lesions Thrombocytopenia Code(s): D69.6 - Thrombocytopenia, unspecified Status: Acute Plan: Postop day #12 from lobectomy, status post heparin 9 days ago Refer to private cot assembler Dr. Hernandez for further recommendations Possible heparin-induced thrombocytopenia versus other etiology No transfusion recommended at this time Hold all heparin forms Follow-up ultrasounds upper extremities to screen for DVT Follow-up recommendations of cot assembler; may want to start an nonheparin anticoagulant Will not transfuse platelets unless bleeding, follow-up repeat CBC at 6 PM Anemia Code(s): D64.9 - Anemia, unspecified Status: Acute Plan: Likely chronic anemia, screen for acute anemia, patient at high risk for bleeding due to thrombocytopenia Hemoglobin 9.3, follow-up CBC at 6 PM Atrial fibrillation Code(s): I48.91 - Unspecified atrial fibrillation Status: Acute Plan: telemetry Continue metoprolol Return for arrhythmias Nutrition, metabolism, and development symptoms Code(s): R63.8 - Other symptoms and signs concerning food and fluid intake Status: Acute Electrolytes: Follow-up BMP and replete as needed Daily PT and OT Renal: Continue to monitor closely urine output, BUN and creatinine Endocrine: Monitor serial Acu checks and SSI as needed in detail ID continue to monitor for signs of infection Continue Protonix for stress ulcer prophylaxis Thrombosis of right saphenous vein Code(s): I82.811 - Embolism and thrombosis of superficial veins of right lower extremity Status: Acute Plan: Doses of lower extremity superficial vein, generally benign and self-limited however a larger vein is involved in this case Leg elevation Warm and cool compresses Compression stockings Caprini VTE Risk Assessment Caprini VTE Risk Assessment: No/Low Risk (score <= 1) Caprini Risk Assessment Model: Point Value = 1 Point Value = 2 Point Value = 3 Point Value = 5 Age 41-60 Minor surgery BMI > 25 kg/m2 Swollen legs Varicose veins or History of unexplained or recurrent spontaneous Oral contraceptives or hormone replacement Sepsis (< 1 month) Serious lung disease, including pneumonia (< 1 month) Abnormal pulmonary function Acute myocardial infarction Congestive heart failure (< 1 month) History of inflammatory bowel disease Medical patient at bed rest Age 61-74 Arthroscopic surgery Major open surgery (> 45 min) Laparoscopic surgery (> 45 min) Malignancy Confined to bed (> 72 hours) Immobilizing plaster cast Central venous access Age >= 75 History of VTE Family history of VTE Factor V Leiden Prothrombin [id number] Lupus anticoagulant Anticardiolipin antibodies Elevated serum homocysteine Heparin-induced thrombocytopenia Other congenital or acquired thrombophilia Stroke (< 1 month) Elective arthroplasty Hip, pelvis, or leg fracture Acute spinal cord injury (< 1 month) Prophylaxis Regimen: Total Risk Factor Score Risk Level Prophylaxis Regimen 0-1 Low Early ambulation 2 Moderate Order ONE of the following: *Sequential Compression Device (SCD) *Heparin 5000 units SQ BID 3-4 Higher Order ONE of the following medications: *Heparin 5000 units SQ TID *Enoxaparin/Lovenox 40 mg SQ daily (WT < 150 kg, CrCl > 30 mL/min) *Enoxaparin/Lovenox 30 mg SQ daily (WT < 150 kg, CrCl > 10-29 mL/min) *Enoxaparin/Lovenox 30 mg SQ BID (WT < 150 kg, CrCl > 30 mL/min) AND/OR *Sequential Compression Device (SCD) 5 or more Highest Order ONE of the following medications: *Heparin 5000 units SQ TID (Preferred with Epidurals) *Enoxaparin/Lovenox 40 mg SQ daily (WT < 150 kg, CrCl > 30 mL/min) *Enoxaparin/Lovenox 30 mg SQ daily (WT < 150 kg, CrCl > 10-29 mL/min) *Enoxaparin/Lovenox 30 mg SQ BID (WT < 150 kg, CrCl > 30 mL/min) AND *Sequential Compression Device (SCD) Further recommendations will be provided depending on the patient's clinical evaluation and follow up studies.
[2018-01-19] MEDS: Temazepam 15 MG Capsule PO PRN (20:57)
[2018-01-19] MEDS: Argatroban Inj 250 MG in Sodium Chlor 0.9% Inj 247.5 ML IV.CONT PRN (22:47)
[2018-01-20] MEDS: Morphine Inj 4 MG/ML Vial IV.PUSH PRN ×4 (04:13→20:43)
[2018-01-20] MEDS: Acetaminophen 500 MG Tablet PO SCH ×3 (06:42→22:04)
[2018-01-20 07:04] LABS: Baso # (Auto) 0.1 th/mm3 (0.0-0.2); Eos # (Auto) 0.4 th/mm3 (0.0-0.4); Eos % (Auto) 3.4 % (0.0-4.0); Hematocrit 28.1 % (39.0-51.0); Hemoglobin 9.4 gm/dL (13.0-17.0); Lymph # (Auto) 1.3 th/mm3 (1.0-4.8); Lymph % (Auto) 10.5 % (9.0-44.0); Mean Corpuscular HGB Conc 33.3 % (32.0-36.0); Mean Corpuscular Hemoglobin 31.7 pg (27.0-34.0); Mean Platelet Volume 11.1 fL (7.0-11.0); Mono # (Auto) 1.4 th/mm3 (0.0-0.9); Mono % (Auto) 11.3 % (0.0-8.0); Neut # (Auto) 9.3 th/mm3 (1.8-7.7); Neut % (Auto) 73.8 % (16.0-70.0); Platelet Count 27 th/mm3 (150-450); Red Blood Count 2.96 mil/mm3 (4.50-5.90); Red Cell Distribution Width 16.6 % (11.6-17.2); White Blood Count 12.6 th/mm3 (4.0-11.0)
[2018-01-20 07:35] LABS: Calcium 8.7 mg/dL (8.5-10.1); Carbon Dioxide 24.3 meq/L (21.0-32.0); Potassium 3.9 meq/L (3.5-5.1)
[2018-01-20 08:36] LABS: Lymphocytes 6 % (9-44); Monocytes 11 % (0-8); Platelet Morphology Normal (Normal); Promyelocyte 1 % (0-0); Toxic Vacuolation Present
--- NOTE | 2018-01-20 08:37 | P.PNFP ---
Subjective Interval history: Patient seen and examined this morning. No acute events overnight per staff. Patient with record temperature of 100.6 overnight that appears to have responded to scheduled Tylenol. Patient states that this morning he is feeling well. He reports that his lower extremity pain has been improving with his pain medications. He states that his right lower extremity pain has nearly resolved, while his left lower extremity is improving as well. He scores his pain at a 6, which she states is an improvement as he reports he was first admitted with a 10/10. Otherwise he has no acute complaints. He denies a complete review systems including but not limited to any chest pain, shortness of breath, NVD, abdominal pain, or dysuria. <Frederick Denis H - 01/20/18 10:12> Results - Labs Result diagrams: 01/26/18 05:15 01/26/18 05:15 <Carole Ceballos M - 01/26/18 15:03> Abnormal lab results 01/24/18 01/25/18 01/25/18 Range/Units 16:20 20:00 20:00 WBC 13.1 H (4.0-11.0) th/mm3 RBC 3.23 L (4.50-5.90) mil/mm3 Hgb 9.6 L (13.0-17.0) gm/dL Hct 29.4 L (39.0-51.0) % RDW 18.3 H (11.6-17.2) % Plt Count 58 L (150-450) th/mm3 Neut % (Auto) 80.6 H (16.0-70.0) % Lymph % (Auto) 6.6 L (9.0-44.0) % Boone % (Auto) 8.1 H (0.0-8.0) % Eos % (Auto) 4.3 H (0.0-4.0) % Neut # (Auto) 10.5 H (1.8-7.7) th/mm3 Lymph # (Auto) 0.9 L (1.0-4.8) th/mm3 Boone # (Auto) 1.1 H (0.0-0.9) th/mm3 Eos # (Auto) 0.6 H (0.0-0.4) th/mm3 Platelet Estimate Low L (Normal) PT 18.3 H (9.8-11.6) sec APTT 43.7 H (24.3-30.1) sec BUN (7-18) mg/dL Creatinine (0.60-1.30) mg/dL Estimated GFR (>89) mL/min Random Glucose (74-106) mg/dL Calcium (8.5-10.1) mg/dL Prot Corrected Calcium (8.5-10.1) mg/dL AST (15-37) U/L Total Protein (6.4-8.2) g/dL Albumin (3.4-5.0) g/dL Vancomycin Trough (5.0-10.0) mcg/mL MTS Gel Crossmatch See Detail 01/25/18 01/26/18 01/26/18 Range/Units 20:00 00:10 01:45 WBC (4.0-11.0) th/mm3 RBC (4.50-5.90) mil/mm3 Hgb (13.0-17.0) gm/dL Hct (39.0-51.0) % RDW (11.6-17.2) % Plt Count (150-450) th/mm3 Neut % (Auto) (16.0-70.0) % Lymph % (Auto) (9.0-44.0) % Boone % (Auto) (0.0-8.0) % Eos % (Auto) (0.0-4.0) % Neut # (Auto) (1.8-7.7) th/mm3 Lymph # (Auto) (1.0-4.8) th/mm3 Boone # (Auto) (0.0-0.9) th/mm3 Eos # (Auto) (0.0-0.4) th/mm3 Platelet Estimate (Normal) PT (9.8-11.6) sec APTT 52.2 H (24.3-30.1) sec BUN (7-18) mg/dL Creatinine 1.39 H (0.60-1.30) mg/dL Estimated GFR 51 L (>89) mL/min Random Glucose 131 H (74-106) mg/dL Calcium 7.3 L* D (8.5-10.1) mg/dL Prot Corrected Calcium 7.8 L (8.5-10.1) mg/dL AST (15-37) U/L Total Protein 6.1 L D (6.4-8.2) g/dL Albumin (3.4-5.0) g/dL Vancomycin Trough 15.2 H (5.0-10.0) mcg/mL MTS Gel Crossmatch 01/26/18 01/26/18 01/26/18 Range/Units 05:15 05:15 05:15 WBC 13.8 H (4.0-11.0) th/mm3 RBC 2.77 L (4.50-5.90) mil/mm3 Hgb 8.4 L (13.0-17.0) gm/dL Hct 25.1 L (39.0-51.0) % RDW 18.5 H (11.6-17.2) % Plt Count 48 L (150-450) th/mm3 Neut % (Auto) 80.6 H (16.0-70.0) % Lymph % (Auto) 7.8 L (9.0-44.0) % Bo[place] % (Auto) 10.9 H (0.0-8.0) % Eos % (Auto) (0.0-4.0) % Neut # (Auto) 11.1 H (1.8-7.7) th/mm3 Lymph # (Auto) (1.0-4.8) th/mm3 Boone # (Auto) 1.5 H (0.0-0.9) th/mm3 Eos # (Auto) (0.0-0.4) th/mm3 Platelet Estimate Low L (Normal) PT (9.8-11.6) sec APTT 56.7 H (24.3-30.1) sec BUN 21 H (7-18) mg/dL Creatinine 1.41 H (0.60-1.30) mg/dL Estimated GFR 51 L (>89) mL/min Random Glucose 110 H (74-106) mg/dL Calcium 7.8 L (8.5-10.1) mg/dL Prot Corrected Calcium (8.5-10.1) mg/dL AST 66 H (15-37) U/L Total Protein 5.8 L (6.4-8.2) g/dL Albumin 2.1 L (3.4-5.0) g/dL Vancomycin Trough (5.0-10.0) mcg/mL MTS Gel Crossmatch Short CBC 01/25/18 01/26/18 Range/Units 20:00 05:15 WBC 13.1 H 13.8 H (4.0-11.0) th/mm3 Hgb 9.6 L 8.4 L (13.0-17.0) gm/dL Hct 29.4 L 25.1 L (39.0-51.0) % Plt Count 58 L 48 L (150-450) th/mm3 BMP 01/25/18 01/26/18 20:00 05:15 Sodium 139 140 Potassium 4.4 4.7 Chloride 105 107 Carbon Dioxide 24.2 25.9 BUN 18 21 H Creatinine 1.39 H 1.41 H Calcium 7.3 L* D 7.8 L Liver Function 01/26/18 Range/Units 05:15 Total Bilirubin 0.5 (0.2-1.0) mg/dL AST 66 H (15-37) U/L ALT 35 (12-78) U/L Alkaline Phosphatase 63 (45-117) U/L Albumin 2.1 L (3.4-5.0) g/dL <Carole Ceballos - 01/26/18 15:03> Abnormal lab results 01/19/18 01/20/18 01/20/18 Range/Units 08:25 04:35 04:35 WBC 12.6 H (4.0-11.0) th/mm3 RBC 2.96 L (4.50-5.90) mil/mm3 Hgb 9.4 L (13.0-17.0) gm/dL Hct 28.1 L (39.0-51.0) % Plt Count 27 L (150-450) th/mm3 MPV 11.1 H (7.0-11.0) fL Neut % (Auto) 73.8 H (16.0-70.0) % Boone % (Auto) 11.3 H (0.0-8.0) % Neut # (Auto) 9.3 H (1.8-7.7) th/mm3 [place] # (Auto) 1.4 H (0.0-0.9) th/mm3 APTT 58.4 H 72.7 H D (24.3-30.1) sec BUN (7-18) mg/dL Creatinine (0.60-1.30) mg/dL Estimated GFR (>89) mL/min 01/20/18 Range/Units 04:35 WBC (4.0-11.0) th/mm3 RBC (4.50-5.90) mil/mm3 Hgb (13.0-17.0) gm/dL Hct (39.0-51.0) % Plt Count (150-450) th/mm3 MPV (7.0-11.0) fL Neut % (Auto) (16.0-70.0) % Boone % (Auto) (0.0-8.0) % Neut # (Auto) (1.8-7.7) th/mm3 Boone # (Auto) (0.0-0.9) th/mm3 APTT (24.3-30.1) sec BUN 21 H (7-18) mg/dL Creatinine 1.58 H (0.60-1.30) mg/dL Estimated GFR 44 L (>89) mL/min Short CBC 01/20/18 Range/Units 04:35 WBC 12.6 H (4.0-11.0) th/mm3 Hgb 9.4 L (13.0-17.0) gm/dL Hct 28.1 L (39.0-51.0) % Plt Count 27 L (150-450) th/mm3 BMP 01/20/18 04:35 Sodium 138 Potassium 3.9 Chloride 103 Carbon Dioxide 24.3 BUN 21 H Creatinine 1.58 H Calcium 8.7 <Frederick Denis H - 01/20/18 08:36> - Imaging Impressions Neck MRA 01/26/18 00:00 CONCLUSION: 1. Limited exam because of lack of intravenous contrast. 2. Phase contrast study was performed. Correlation ultrasound would be of benefit. Stenosis of the left does not not appear to be hemodynamically significant. _ Percent stenosis is calculated using the diameter of the stenotic region over the diameter of the normal distal internal carotid artery _ Head MRI 01/26/18 10:49 CONCLUSION: 1. Encephalomalacia involving the left occipital lobe with ex vacuo dilatation of the atrium of the left lateral ventricle. 2. No acute infarct, acute hemorrhage, midline shift or extra-axial fluid collections. Head MRA 01/26/18 10:49 CONCLUSION: 1. Anatomic variant of the rampart of Ann as above. 2. Otherwise, intracranial vessels are all patent without aneurysmal disease. Cervical Spine MRI 01/26/18 10:50 CONCLUSION: 1. Small broad-based central to left paracentral focal disc bulges at C4-5 and C5-6 resulting and mild spinal stenosis and mild bilateral foraminal narrowing. Mild facet joint hypertrophy is noted bilaterally at these levels. 2. Minimal diffuse disc bulges at C3-4 and C6-7. 3. Minimal bilateral foraminal narrowing at C3-4. <Carole Ceballos - 01/26/18 15:03> Physical Exam Vital signs: Vital Signs 01/25/18 18:10 01/25/18 18:30 01/25/18 18:45 Temperature 97.8 F Pulse Rate 75 86 89 Respiratory Rate 21 21 21 Blood Pressure 137/65 185/80 H 165/76 H Pulse Oximetry 98 98 98 01/25/18 19:00 01/25/18 19:46 01/25/18 20:00 Temperature 97.6 F 98.1 F Pulse Rate 92 H 87 Respiratory Rate 21 18 Blood Pressure 157/71 H 180/79 H Pulse Oximetry 98 100 98 01/26/18 00:00 01/26/18 04:00 Temperature 98.7 F 99 F Pulse Rate 74 84 Respiratory Rate 16 12 Blood Pressure 161/69 H 174/69 H Pulse Oximetry 97 98 Intake & Output 01/25/18 01/26/18 01/26/18 18:59 06:59 18:59 Intake Total 5250 / 5250 501 / 501 250 / 250 Output Total 1750 / 1750 1650 / 1650 Balance 3500 / 3500 -1149 / -1149 250 / 250 Weight 73.5 kg Intake: IV 250 / 250 501 / 501 250 / 250 Novastan Inj 250 MG In NS Inj 151 / 151 250 / 250 247.5 ML @ Per Protocol IV.CONT TITRATE PRN Rx#:[id number] Maxipime Inj 2,000 MG In NS Inj 100 / 100 100 ML @ 200 mls/hr IV.SIG Q12H SHAVONNE Rx#:[id number] Vancomycin Inj 1,000 MG In NS 250 / 250 250 / 250 Inj 250 ML @ 250 mls/hr IV.SIG Q18H SHAVONNE Rx#:[id number] Anesthesia Amount 4500 / 4500 Mass Transfusion Protocol 500 / 500 Output: Urine 1500 / 1500 Estimated Blood Loss 250 / 250 Urine Amount (Catheter) 1650 / 1650 Indwelling Urethral Catheter 1650 / 1650 Other: # Voids 1 Date of Last Bowel Movement 01/19/18 <Carole Ceballos - 01/26/18 15:03> Vital Signs 01/19/18 09:00 01/19/18 12:00 01/19/18 16:00 Temperature 99.5 F 99.4 F Pulse Rate 94 H 84 Respiratory Rate 20 20 Blood Pressure 110/65 159/77 H Pulse Oximetry 92 L 93 L 93 L 01/19/18 19:35 01/19/18 20:00 01/20/18 00:00 Temperature 99.5 F 99.1 F Pulse Rate 71 71 Respiratory Rate 18 18 Blood Pressure 157/72 H 156/76 H Pulse Oximetry 94 L 95 93 L 01/20/18 04:00 01/20/18 04:15 Temperature 100.6 F H Pulse Rate 80 Respiratory Rate 18 5 L Blood Pressure 155/75 H Pulse Oximetry 95 Intake & Output 01/19/18 01/20/18 01/20/18 18:59 06:59 18:59 Intake Total 480 / 480 693.6 / 693.6 Output Total 500 / 500 1000 / 1000 Balance -20 / -20 -306.4 / -306.4 Weight 69.1 kg Intake: IV 213.6 / 213.6 Novastan Inj 250 MG In NS Inj 213.6 / 213.6 247.5 ML @ Per Protocol IV.CONT TITRATE PRN Rx#:[id number] Oral 480 / 480 480 / 480 Output: Urine 500 / 500 1000 / 1000 Other: # Voids 2 Date of Last Bowel Movement 01/18/18 # Bowel Movements 0 0 <Frederick Denis H - 01/20/18 08:36> Narrative: GENERAL: Thin appearing male lying in bed in no acute distress with significant other at bedside. SKIN: Warm and dry. No rash. HEENT: Atraumatic, normocephalic with extraocular motions intact. No rhinorrhea. No visible lymphadenopathy or jugulovenous distension appreciated. CARDIOVASCULAR: Regular rate and rhythm without obvious murmurs, gallops, or rubs. 2+ pulses in all four extremities. RESPIRATORY: Prolonged inspiratory and expiratory phase. Decreased breath sounds of the bilateral lower lobes without obvious CRW. No increased work of breathing at this time. Thoracotomy incision appears to be well-healing. GASTROINTESTINAL: Abdomen soft, non-tender, nondistended with positive bowel sounds. No masses appreciated. MUSCULOSKELETAL: No cyanosis or edema. Continued decreased sensation over left posterior calf. Mild tenderness to palpation of the bilateral calves stable from previous exams per patient. NEURO/PSYCH: Afocal. Awake, alert, and oriented x3. Normal speech and judgement. <Frederick Denis H - 01/20/18 10:12> Assessment and Plan - Assessment (1) Pain in both lower legs Code(s): M79.661 - Pain in right lower leg; M79.662 - Pain in left lower leg Status: Acute (2) Heparin induced thrombocytopenia Code(s): D75.82 - Heparin induced thrombocytopenia (HIT) Status: Acute (3) Hypertension Code(s): I10 - Essential (primary) hypertension Status: Acute (4) EVON (acute kidney injury) Code(s): N17.9 - Acute kidney failure, unspecified Status: Acute (5) SIRS (systemic inflammatory response syndrome) Code(s): R65.10 - Systemic inflammatory response syndrome (SIRS) of non- infectious origin without acute organ dysfunction Status: Resolved (6) Metastatic primary lung cancer Code(s): C34.90 - Malignant neoplasm of unspecified part of unspecified bronchus or lung Status: Acute (7) Thrombosis of right saphenous vein Code(s): I82.811 - Embolism and thrombosis of superficial veins of right lower extremity Status: Acute (8) Anemia Code(s): D64.9 - Anemia, unspecified Status: Acute (9) Avascular necrosis of hip Code(s): M87.059 - Idiopathic aseptic necrosis of unspecified femur Status: Acute (10) Atrial fibrillation Code(s): I48.91 - Unspecified atrial fibrillation Status: Acute (11) Nutrition, metabolism, and development symptoms Code(s): R63.8 - Other symptoms and signs concerning food and fluid intake Status: Acute <Carole Ceballos - 01/26/18 15:03> (1) SIRS (systemic inflammatory response syndrome) Code(s): R65.10 - Systemic inflammatory response syndrome (SIRS) of non- infectious origin without acute organ dysfunction Status: Acute Plan: Patient currently meeting SIRS criteria with temperature 100.6 overnight with leukocytosis. No obvious source of infection, however inflammatory response could be related to malignancy versus thrombosis. CBC: Leukocytosis to 12.6 with 79% neutrophils Chest x-ray: Stable from admission Urinalysis: Pending (2) Creatinine elevation (3) Pain in both lower legs Code(s): M79.661 - Pain in right lower leg; M79.662 - Pain in left lower leg Status: Acute Plan: Patient presented after worsening pain and weakness in bilateral legs. Upon further discussion with patient, has signs and symptoms of peripheral arterial disease Aorta CTA shows severe atherosclerotic disease with severe narrowing of distal aorta -Mural thrombus at level of distal aorta -Infarction of the inferior right kidney MRI with no acute findings Cervical MRI shows stenosis Thoracic MRI with possible drop mets Lumbar MRI wnl EEG wnl -Vascular consulted-appreciate recs -Non-candidate for revascularization at this time due to thrombocytopenia as well as his metastatic disease -Heme/onc consulted -Pt with ischemic pain -Treating HIT with argatroban -Neurology consulted-appreciate recs -Increase gabapentin to 600 mg -Repeat thoracic MRI ordered -possible pending LP, holding due to thrombocytopenia -PT evaluating -recommend home health -Oxycodone and percocet PRN pain (4) Heparin induced thrombocytopenia Code(s): D75.82 - Heparin induced thrombocytopenia (HIT) Status: Acute Plan: Postop day #12 from lobectomy and s/p heparin 9 days on admission Heparin-induced thrombocytopenia antibody positive No transfusion recommended at this time due to possibility of further coagulation Hold all heparin forms Heme/onc consulted-HIT with thrombosis -Started argatroban gtt (5) Metastatic primary lung cancer Code(s): C34.90 - Malignant neoplasm of unspecified part of unspecified bronchus or lung Status: Acute Plan: Status post chemo in November, status post lobectomy Recent PET scans negative MRI spine shows possible mets Repeat brain MRI with no acute change -Management per oncology team; discussing case with patients Oncologist in [place] , Dr. Dillard -Regarding possible drop mets -Unsure of etiology at this time -Repeat Thoracic MRI in 2 weeks for evaluation of possible change -Radiation oncology consulted -No therapy at this time due to low platelets -Possible repeat of T-spine MRI in 7-10 days (6) Thrombosis of right saphenous vein Code(s): I82.811 - Embolism and thrombosis of superficial veins of right lower extremity Status: Acute Plan: Lower extremity superficial vein, generally benign and self-limited however a larger vein is involved in this case Caution with propagation into the DVT system and PE possibility Likely due to abnormal coagulation at this time may repeat duplex ultrasound with further clinical signs Elevation Warm and cool compresses Compression stockings Pain management (7) Anemia Code(s): D64.9 - Anemia, unspecified Status: Acute Plan: No history of anemia per patient Likely chronic anemia, patient at high risk for bleeding due to thrombocytopenia Unsure of the exact cause, chemotherapy vs recent surgery vs chronic anemia (8) Atrial fibrillation Code(s): I48.91 - Unspecified atrial fibrillation Status: Acute Plan: History of Afib. Controlled rate Echo shows EF of 50-55% Segmental wall motion abnormalities with hypokinesis Continue telemetry Continue metoprolol Watch for arrhythmias (9) Nutrition, metabolism, and development symptoms Code(s): R63.8 - Other symptoms and signs concerning food and fluid intake Status: Acute Plan: Fluids: Tolerating PO Electrolytes: Follow-up BMP and replete as needed Nutrition: Regular diet DVT prophylaxis: Holding all heparin products, agratroban gtt Incentive spirometry <Frederick Denis - 01/20/18 10:02> - Attending Attestation The exam, history, and the medical decision-making described in the above note were completed with the assistance of the resident physician. I reviewed and agree with the findings presented. I attest that I had a [id number] encounter with the patient on the same day, and personally performed and documented my assessment and findings in the medical record. doubt infection as the cause of his fever but will check for all the usual sources. HIT can cause fever, clots can cause fevers, atelectasis, etc. hesitate to start abx as he does not have complaints pointing to an infection <LinMickCarole M - 01/26/18 15:03> <Frederick Denis H - Last Filed: 01/20/18 10:02> (7) Anemia Qualifiers: Anemia type: bone marrow failure Bone marrow failure anemia type: pancytopenia, antineoplastic chemotherapy-induced Qualified Code(s): D61.810 - Antineoplastic chemotherapy induced pancytopenia; T45.1X5A - Adverse effect of antineoplastic and immunosuppressive drugs, initial encounter <Carole Ceballos M - Last Filed: 01/26/18 15:03> (8) Anemia Qualifiers: Anemia type: bone marrow failure Bone marrow failure anemia type: pancytopenia, antineoplastic chemotherapy-induced Qualified Code(s): D61.810 - Antineoplastic chemotherapy induced pancytopenia; T45.1X5A - Adverse effect of antineoplastic and immunosuppressive drugs, initial encounter (9) Avascular necrosis of hip Qualifiers: Laterality: right Qualified Code(s): M87.051 - Idiopathic aseptic necrosis of right femur <Frederick Denis H - Last Filed: 01/20/18 10:02> (7) Anemia Qualifiers: Anemia type: bone marrow failure Bone marrow failure anemia type: pancytopenia, antineoplastic chemotherapy-induced Qualified Code(s): D61.810 - Antineoplastic chemotherapy induced pancytopenia; T45.1X5A - Adverse effect of antineoplastic and immunosuppressive drugs, initial encounter <Carole Ceballos - Last Filed: 01/26/18 15:03> (8) Anemia Qualifiers: Anemia type: bone marrow failure Bone marrow failure anemia type: pancytopenia, antineoplastic chemotherapy-induced Qualified Code(s): D61.810 - Antineoplastic chemotherapy induced pancytopenia; T45.1X5A - Adverse effect of antineoplastic and immunosuppressive drugs, initial encounter (9) Avascular necrosis of hip Qualifiers: Laterality: right Qualified Code(s): M87.051 - Idiopathic aseptic necrosis of right femur
--- NOTE | 2018-01-20 08:57 | P.PNNEU ---
Subjective Subjective Comments: still some pain on and off Active Medications: Active Medications Acetaminophen (Tylenol) 500 mg PO Q8HR [facility] Last Admin: 01/20/18 06:42 Dose: 500 mg Acetaminophen (Tylenol) 650 mg PO Q6HR PRN PRN Reason: PAIN SCALE 1 TO 2 Al Hydroxide/Mg Hydroxide (Milk Of Magnesia Liq) 30 ml PO Q12H PRN PRN Reason: Mild Constipation Bisacodyl (Dulcolax Supp) 10 mg RECTAL DAILY PRN PRN Reason: SEVERE CONSITIPATION Budesonide/Formoterol Fumarate (Symbicort 160/4.5 Mcg Inh) 2 puff INH BID [facility] Last Admin: 01/19/18 20:56 Dose: 2 puff Clonidine HCl (Catapres) 0.1 mg PO Q6H PRN PRN Reason: SEE LABEL COMMENTS Folic Acid (Folic Acid) 1 mg PO DAILY [facility] Last Admin: 01/19/18 08:28 Dose: 1 mg Gabapentin (Neurontin) 300 mg PO DAILY [facility] Last Admin: 01/19/18 08:28 Dose: 300 mg Argatroban 250 mg/ Sodium (Chloride) 250 mls @ 0 mls/hr IV.CONT TITRATE PRN; Protocol PRN Reason: Per Protocol Last Titration: 01/20/18 05:57 Dose: 2.5 mcg/kg/min, 10.36 mls/hr Lactulose (Lactulose Liq) 30 ml PO DAILY PRN PRN Reason: SEVERE CONSITIPATION Metoprolol Tartrate (Lopressor) 25 mg PO BID [facility] Last Admin: 01/19/18 20:57 Dose: 25 mg Morphine Sulfate (Morphine Inj) 4 mg IV.PUSH Q3H PRN PRN Reason: BREAKTHROUGH PAIN Last Admin: 01/20/18 04:13 Dose: 4 mg Naloxone HCl (Narcan Inj) 0.4 mg IV.PUSH UNSCH PRN PRN Reason: SEE LABEL COMMENTS Oxycodone HCl (Roxicodone) 10 mg PO Q4H PRN PRN Reason: PAIN SCALE 6 TO 10 Last Admin: 01/20/18 06:42 Dose: 10 mg Oxycodone/Acetaminophen (Percocet 5/325 Mg) 1 tab PO Q6H PRN PRN Reason: PAIN SCALE 3 TO 5 Pantoprazole Sodium (Protonix) 40 mg PO DAILY [facility] Last Admin: 01/19/18 08:29 Dose: 40 mg Sennosides (Senokot) 17.2 mg PO Q12H PRN PRN Reason: Moderate Constipation Last Admin: 01/19/18 21:11 Dose: 17.2 mg Sodium Chloride (Ns Flush) 2 ml IV.FLUSH PRN PRN PRN Reason: FLUSH AFTER USING IV ACCESS Last Admin: 01/17/18 23:38 Dose: 2 ml Temazepam (Restoril) 15 mg PO HS PRN PRN Reason: INSOMNIA Last Admin: 01/19/18 20:57 Dose: 15 mg Allergies/Adverse Reactions: Allergies Allergy/AdvReac Type Severity Reaction Status Date / Time No Known Allergies Allergy Unverified 01/17/18 11:06 Physical Exam Vital signs: Vital Signs 01/19/18 09:00 01/19/18 12:00 01/19/18 16:00 Temperature 99.5 F 99.4 F Pulse Rate 94 H 84 Respiratory Rate 20 20 Blood Pressure 110/65 159/77 H Pulse Oximetry 92 L 93 L 93 L 01/19/18 19:35 01/19/18 20:00 01/20/18 00:00 Temperature 99.5 F 99.1 F Pulse Rate 71 71 Respiratory Rate 18 18 Blood Pressure 157/72 H 156/76 H Pulse Oximetry 94 L 95 93 L 01/20/18 04:00 01/20/18 04:15 01/20/18 08:00 Temperature 100.6 F H 99.1 F Pulse Rate 80 86 Respiratory Rate 18 5 L 18 Blood Pressure 155/75 H 150/75 H Pulse Oximetry 95 95 Intake & Output 01/19/18 01/20/18 01/20/18 18:59 06:59 18:59 Intake Total 480 / 480 693.6 / 693.6 Output Total 500 / 500 1000 / 1000 Balance -20 / -20 -306.4 / -306.4 Weight 69.1 kg Intake: IV 213.6 / 213.6 Novastan Inj 250 MG In NS Inj 213.6 / 213.6 247.5 ML @ Per Protocol IV.CONT TITRATE PRN Rx#:[id number] Oral 480 / 480 480 / 480 Output: Urine 500 / 500 1000 / 1000 Other: # Voids 2 Date of Last Bowel Movement 01/18/18 # Bowel Movements 0 0 Narrative: awake lert ble 5/5 x left ta 4+ Objective Laboratory Results - last 24 hr 01/18/18 01/19/18 01/20/18 13:15 08:25 04:35 WBC RBC Hgb Hct MCV MCH MCHC RDW Plt Count MPV Prelim Diff (Auto) Neut % (Auto) Lymph % (Auto) Elliott % (Auto) Eos % (Auto) Baso % (Auto) Neut # (Auto) Lymph # (Auto) Elliott # (Auto) Eos # (Auto) Baso # (Auto) WBC Differential Seg Neuts % (Manual) Band Neuts % (Manual) Lymphocytes % (Manual) Monocytes % (Manual) Basophils % (Manual) Promyelocytes % (Man) Abs Neuts (Manual) Differential Comment Toxic Vacuolation Platelet Estimate Platelet Morphology APTT 58.4 H 72.7 H D Sodium Potassium Chloride Carbon Dioxide Anion Gap BUN Creatinine Estimated GFR Random Glucose Calcium ATILIO Screen Neg RPR Nonreactive 01/20/18 01/20/18 04:35 04:35 WBC 12.6 H RBC 2.96 L Hgb 9.4 L Hct 28.1 L MCV 95.0 MCH 31.7 MCHC 33.3 RDW 16.6 Plt Count 27 L MPV 11.1 H Prelim Diff (Auto) Slide review pending Neut % (Auto) 73.8 H Lymph % (Auto) 10.5 Elliott % (Auto) 11.3 H Eos % (Auto) 3.4 Baso % (Auto) 1.0 Neut # (Auto) 9.3 H Lymph # (Auto) 1.3 Elliott # (Auto) 1.4 H Eos # (Auto) 0.4 Baso # (Auto) 0.1 WBC Differential Manual diff final Seg Neuts % (Manual) 79 H Band Neuts % (Manual) 1 Lymphocytes % (Manual) 6 L Monocytes % (Manual) 11 H Basophils % (Manual) 2 Promyelocytes % (Man) 1 H Abs Neuts (Manual) 10.2 H Differential Comment . Toxic Vacuolation Present H Platelet Estimate Low L Platelet Morphology Normal APTT Sodium 138 Potassium 3.9 Chloride 103 Carbon Dioxide 24.3 Anion Gap 11 BUN 21 H Creatinine 1.58 H Estimated GFR 44 L Random Glucose 78 Calcium 8.7 ATILIO Screen RPR Review/Management - Review/Management Plan: i dw dr zelaya imp cta showed some blockages but does have flow in ble arterial dr hannah not convinced the thoracic abn is met could be vascular? i dw neurorad check cpk labs hit rx per dr pablo hernandez recently fu echo some infarct in kidney ? 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 will have to repeat mri t spine concerned with new weak left ankle
[2018-01-20] MEDS: Metoprolol Tartrate 25 MG Tablet PO SCH ×2 (09:20→20:43)
[2018-01-20] MEDS: Folic Acid 1 MG Tablet PO SCH (09:20)
[2018-01-20] MEDS: Budesonide-Formoterol 160/4.5 MCG 6 GM Inhaler INH SCH ×2 (09:21→20:47)
--- NOTE | 2018-01-20 09:49 | XR ---
EXAM DATE: 01/20/2018 9:42 AM EDT AGE/SEX: 62 years / Male INDICATIONS: Fever and shortness of breath. CLINICAL DATA: This is the patient's subsequent encounter. Patient reports that signs and symptoms h ave been present for 3 days and indicates a pain score of 0/10. MEDICAL/SURGICAL HISTORY: Carcinoma, lung. Lobectomy. COMPARISON: [facility] – [place], CHEST 2V PA&LAT, 01/17/2018. . FINDINGS: There is a stable appearance of the chest with hyperinflation on the right and fine loss on the left. Surgical clips overlie the left upper thorax with decreased conspicuity of air-fluid levels in the p reviously described cavitary left lung lesions. There is stable right apical pleural parenchymal opac ity. CONCLUSION: Air-fluid level seen previously in the left cavitary foci are decreased in conspicuity. This study is otherwise stable. Electronically signed by: Leon Tello MD 01/20/2018 9:48 AM EDT
[2018-01-20] MEDS ORDERED: Gadobutrol PF 7.5 MMOL/7.5 ML Vial (for RAD) IV.SIG ONE (10:26)
[2018-01-20] MEDS: Gabapentin 300 MG Capsule PO SCH (10:55)
--- NOTE | 2018-01-20 11:03 | MR ---
EXAM DATE: 01/20/2018 10:42 AM EDT AGE/SEX: 62 years / Male INDICATIONS: Inability to ambulate. CLINICAL DATA: This is the patient's initial encounter. Patient reports that signs and symptoms have been present for 4 - 6 days and indicates a pain score of 5/10. MEDICAL/SURGICAL HISTORY: Carcinoma, lung. Metastatic disease. Craniotomy. Nephrectomy, left. COMPARISON: [facility] [place] THORACIC SPINE W & W/O CON, 01/17/2018. . TECHNIQUE: Multiplanar, multisequence MRI of the thoracic spine was performed without and with 7 ml Gadavist (gadobutrol) contrast as a single exam dose. FINDINGS: There are abnormalities in the left hemithorax consisting of cavitary lesion and effusion, and nodularity, incompletely imaged on this study. Vertebrae: Normal vertebral body height. Homogeneous marrow signal. Alignment: Normal. Cord: Normal position and configuration. Post Contrast: There remains very subtle enhancement along the right of T11 and T10 spinal levels, w hich appears lateral to the cord and may reflect subtle nerve root enhancement. T1-T2: The thecal sac has a normal diameter. No evidence of disc bulge or protrusion. T2-T3: The thecal sac has a normal diameter. No evidence of disc bulge or protrusion. T3-T4: The thecal sac has a normal diameter. No evidence of disc bulge or protrusion. T4-T5: The thecal sac has a normal diameter. No evidence of disc bulge or protrusion. T5-T6: The thecal sac has a normal diameter. No evidence of disc bulge or protrusion. T6-T7: The thecal sac has a normal diameter. No evidence of disc bulge or protrusion. T7-T8: The thecal sac has a normal diameter. No evidence of disc bulge or protrusion. T8-T9: The thecal sac has a normal diameter. No evidence of disc bulge or protrusion. T9-T10: The thecal sac has a normal diameter. No evidence of disc bulge or protrusion. T10-T11: The thecal sac has a normal diameter. No evidence of disc bulge or protrusion. T11-T12: The thecal sac has a normal diameter. No evidence of disc bulge or protrusion. T12-L1: The thecal sac has a normal diameter. No evidence of disc bulge or protrusion. CONCLUSION: 1. Stable examination with abnormal left hemithorax. 2. Very slight enhancement seen along the lower thoracic spinal cord on the right may be related to nerve root enhancement or drop metastases. Is not well evaluated on this study. Electronically signed by: Leon Tello MD 01/20/2018 11:01 AM EDT
--- NOTE | 2018-01-20 11:44 | P.PNONC ---
Subjective Interval history: T-max 100.7F. Patient has recently returned to the room from MRI. He reports tingling to his left leg. Sensation remains intact bilaterally. Denies any bleeding, continues on Argatroban drip. Objective Vital Signs/Intake & Output: Vital Signs 01/19/18 12:00 01/19/18 16:00 01/19/18 19:35 Temperature 99.5 F 99.4 F Pulse Rate 94 H 84 Respiratory Rate 20 20 Blood Pressure 110/65 159/77 H Pulse Oximetry 93 L 93 L 94 L 01/19/18 20:00 01/20/18 00:00 01/20/18 04:00 Temperature 99.5 F 99.1 F 100.6 F H Pulse Rate 71 71 80 Respiratory Rate 18 18 18 Blood Pressure 157/72 H 156/76 H 155/75 H Pulse Oximetry 95 93 L 95 01/20/18 04:15 01/20/18 08:00 Temperature 99.1 F Pulse Rate 86 Respiratory Rate 5 L 18 Blood Pressure 150/75 H Pulse Oximetry 95 Intake & Output 01/19/18 01/20/18 01/20/18 18:59 06:59 18:59 Intake Total 480 / 480 693.6 / 693.6 Output Total 500 / 500 1000 / 1000 Balance -20 / -20 -306.4 / -306.4 Weight 69.1 kg Intake: IV 213.6 / 213.6 Novastan Inj 250 MG In NS Inj 213.6 / 213.6 247.5 ML @ Per Protocol IV.CONT TITRATE PRN Rx#:[id number] Oral 480 / 480 480 / 480 Output: Urine 500 / 500 1000 / 1000 Other: # Voids 2 Date of Last Bowel Movement 01/18/18 # Bowel Movements 0 0 Result Diagrams: 01/20/18 04:35 01/20/18 04:35 Laboratory Results: Laboratory Results - last 24 hr 01/18/18 01/20/18 01/20/18 13:15 04:35 04:35 WBC 12.6 H RBC 2.96 L Hgb 9.4 L Hct 28.1 L MCV 95.0 MCH 31.7 MCHC 33.3 RDW 16.6 Plt Count 27 L MPV 11.1 H Prelim Diff (Auto) Slide review pending Neut % (Auto) 73.8 H Lymph % (Auto) 10.5 [place] % (Auto) 11.3 H Eos % (Auto) 3.4 Baso % (Auto) 1.0 Neut # (Auto) 9.3 H Lymph # (Auto) 1.3 [place] # (Auto) 1.4 H Eos # (Auto) 0.4 Baso # (Auto) 0.1 WBC Differential Manual diff final Seg Neuts % (Manual) 79 H Band Neuts % (Manual) 1 Lymphocytes % (Manual) 6 L Monocytes % (Manual) 11 H Basophils % (Manual) 2 Promyelocytes % (Man) 1 H Abs Neuts (Manual) 10.2 H Differential Comment . Toxic Vacuolation Present H Platelet Estimate Low L Platelet Morphology Normal APTT 72.7 H D Sodium Potassium Chloride Carbon Dioxide Anion Gap BUN Creatinine Estimated GFR Random Glucose Calcium ATILIO Screen Neg 01/20/18 04:35 WBC RBC Hgb Hct MCV MCH MCHC RDW Plt Count MPV Prelim Diff (Auto) Neut % (Auto) Lymph % (Auto) [place] % (Auto) Eos % (Auto) Baso % (Auto) Neut # (Auto) Lymph # (Auto) [place] # (Auto) Eos # (Auto) Baso # (Auto) WBC Differential Seg Neuts % (Manual) Band Neuts % (Manual) Lymphocytes % (Manual) Monocytes % (Manual) Basophils % (Manual) Promyelocytes % (Man) Abs Neuts (Manual) Differential Comment Toxic Vacuolation Platelet Estimate Platelet Morphology APTT Sodium 138 Potassium 3.9 Chloride 103 Carbon Dioxide 24.3 Anion Gap 11 BUN 21 H Creatinine 1.58 H Estimated GFR 44 L Random Glucose 78 Calcium 8.7 ATILIO Screen Imaging Studies: Impressions Chest X-Ray 01/20/18 00:00 CONCLUSION: Air-fluid level seen previously in the left cavitary foci are decreased in conspicuity. This study is otherwise stable. Thoracic Spine MRI 01/20/18 00:00 CONCLUSION: 1. Stable examination with abnormal left hemithorax. 2. Very slight enhancement seen along the lower thoracic spinal cord on the right may be related to nerve root enhancement or drop metastases. Is not well evaluated on this study. Medications: Active Medications Generic Name Dose Route Start Last Admin Trade Name Freq PRN Reason Stop Dose Admin Acetaminophen 500 mg 01/17/18 14:00 01/20/18 06:42 Tylenol PO 500 mg Q8HR SHAVONNE Administration Budesonide/Formoterol Fumarate 2 puff 01/17/18 14:00 01/20/18 09:21 Symbicort 160/4.5 Mcg Inh INH 2 puff BID SHAVONNE Administration Folic Acid 1 mg 01/17/18 13:45 01/20/18 09:20 Folic Acid PO 1 mg DAILY SHAVONNE Administration Gabapentin 600 mg 01/20/18 09:30 01/20/18 10:55 Neurontin PO 600 mg DAILY SHAVONNE Administration Argatroban 250 mg/ Sodium 250 mls @ 0 mls/hr 01/18/18 15:00 01/20/18 05:57 Chloride IV.CONT 2.5 mcg/kg/min TITRATE PRN 10.36 mls/hr Per Protocol Titration Protocol Per Protocol Metoprolol Tartrate 25 mg 01/17/18 13:45 01/20/18 09:20 Lopressor PO 25 mg BID SHAVONNE Administration Morphine Sulfate 4 mg 01/18/18 02:56 01/20/18 09:20 Morphine Inj IV.PUSH 4 mg Q3H PRN Administration BREAKTHROUGH PAIN Oxycodone HCl 10 mg 01/18/18 02:56 01/20/18 06:42 Roxicodone PO 10 mg Q4H PRN Administration PAIN SCALE 6 TO 10 Pantoprazole Sodium 40 mg 01/17/18 14:00 01/20/18 09:20 Protonix PO 40 mg DAILY SHAVONNE Administration Sennosides 17.2 mg 01/17/18 14:08 01/19/18 21:11 Senokot PO 17.2 mg Q12H PRN Administration Moderate Constipation Sodium Chloride 2 ml 01/17/18 11:17 01/17/18 23:38 Ns Flush IV.FLUSH 2 ml PRN PRN Administration FLUSH AFTER USING IV ACCESS Temazepam 15 mg 01/17/18 21:00 01/19/18 20:57 Restoril PO 15 mg HS PRN Administration INSOMNIA Objective Remarks: GENERAL: Well-nourished, well-developed gentleman, in no acute distress. SKIN: Warm and dry. HEAD: Normocephalic. EYES: No scleral icterus. No injection or drainage. NECK: Supple, trachea midline. CARDIOVASCULAR: Regular rate and rhythm without murmurs. RESPIRATORY: Posterior breath sounds clear. Non-labored. GASTROINTESTINAL: Abdomen soft, non-tender, nondistended. EXTREMITIES: No cyanosis, or edema. Bilateral feet cool to touch. PT and DP pulses non-palpable, cap refill <3 sec. MUSCULOSKELETAL: Adequate muscle tone. NEUROLOGICAL: No obvious focal deficit. Awake, alert, and oriented x3. PSYCHIATRIC: Appropriate mood and affect; insight and judgment normal. 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 Bernstein is a pleasant 62-year-old gentleman with a history of non-small cell lung cancer with brain metastasis, status post craniotomy with resection followed by stereotactic radiosurgery with gamma knife, 3-4 cycles of preop Immunochemotherapy with 2 doses of Platinol and Alimta he also underwent thoracotomy and resection of the left upper lobe and wedge resection of the left lower lobe on 01/01/2018. Patient had minimal residual disease of 0.6 cm and also the lymph nodes were negative. Margins were also negative. During this admission the patient was found to have severe thrombocytopenia. Patient did have recent exposure to subcutaneous heparin after his recent surgery. Plan: 1. Non-small cell lung cancer with brain metastasis, status post above treatments. MR thoracic spine on 01/17/2018 showed some small enhancing nodules identified along the surface of the spinal cord in the lower thoracic spine dural extra medullary lesions and drop metastasis. Neurosurgery has been consulted, they report the thoracic abnormality could also be vascular vs. mets. MRI pending. 2. 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 Continue on argatroban. CHAI pending. Avoid heparin exposure. Monitor for bleeding. No transfusions warranted at this time. 3. Thrombosis of right saphenous vein. On argatrpban drip for thrombocytopenia. 4. Left lower extremity tingling, neurology consulted and remains. Status post MRI this a.m.
[2018-01-20 13:28] LABS: Bacteria,Urine Rare /hpf; Bilirubin,Urine Negative (Negative); Clarity,Urine Hazy (Clear); Color,Urine Yellow (Yellw/Straw); Glucose,Urine (UA) Negative (Negative); Leukocyte Esterase,Urine Negative (Negative); Nitrite,Urine Negative (Negative); Specific Gravity,Urine 1.017 (1.002-1.035); Squamous Epithelial Cell,Urine <1 /hpf (0-5); Urobilinogen,Urine 4 or Greater mg/dL (Less than 2)
[2018-01-20] MEDS: Temazepam 15 MG Capsule PO PRN (22:01)
[2018-01-21] MEDS: Argatroban Inj 250 MG in Sodium Chlor 0.9% Inj 247.5 ML IV.CONT PRN (00:38)
[2018-01-21 06:14] LABS: Baso # (Auto) 0.1 th/mm3 (0.0-0.2); Baso % (Auto) 0.7 % (0.0-2.0); Eos # (Auto) 0.4 th/mm3 (0.0-0.4); Eos % (Auto) 3.1 % (0.0-4.0); Hematocrit 29.9 % (39.0-51.0); Lymph # (Auto) 1.1 th/mm3 (1.0-4.8); Lymph % (Auto) 8.4 % (9.0-44.0); Mean Corpuscular HGB Conc 33.5 % (32.0-36.0); Mean Corpuscular Hemoglobin 31.2 pg (27.0-34.0); Mean Corpuscular Volume 93.1 fL (80.0-100.0); Mean Platelet Volume 9.1 fL (7.0-11.0); Mono # (Auto) 1.7 th/mm3 (0.0-0.9); Mono % (Auto) 13.2 % (0.0-8.0); Neut # (Auto) 9.4 th/mm3 (1.8-7.7); Neut % (Auto) 74.6 % (16.0-70.0); Platelet Count 29 th/mm3 (150-450); Red Blood Count 3.21 mil/mm3 (4.50-5.90); Red Cell Distribution Width 16.2 % (11.6-17.2); White Blood Count 12.7 th/mm3 (4.0-11.0)
[2018-01-21 06:36] LABS: Calcium 8.4 mg/dL (8.5-10.1); Carbon Dioxide 21.8 meq/L (21.0-32.0)
[2018-01-21] MEDS: Acetaminophen 500 MG Tablet PO SCH (06:43)
[2018-01-21 07:19] LABS: Platelet Morphology Normal (Normal)
[2018-01-21] MEDS: Metoprolol Tartrate 25 MG Tablet PO SCH ×2 (08:48→20:20)
[2018-01-21] MEDS: Gabapentin 300 MG Capsule PO SCH (08:48)
[2018-01-21] MEDS: Folic Acid 1 MG Tablet PO SCH (08:48)
--- NOTE | 2018-01-21 09:07 | P.PNFP ---
Subjective Interval history: Patient seen and examined this morning by medical team. No acute events overnight per nursing staff. Nursing staff does note that patient continues to have a fever up to 101 despite being treated with scheduled Tylenol. However, patient has no complaints and states that he "feels even better from yesterday. " He states that he does have chronic leg pain but only scores this at a 3/10 currently. He feels that since increasing the gabapentin at his assisted his pain level as well. We discussed that his platelets continued to slowly rise. We also discussed his thoracic MRI report which showed stable examination with slight enhancement that could be related to nerve root enhancement versus drop metastasis. He currently denies a complete review systems including but not limited to any chills, shortness of breath, productive cough, chest pain, NVD, abdominal pain, or dysuria. <Frederick Denis H - 01/21/18 09:53> Results - Labs Result diagrams: 01/26/18 05:15 01/26/18 05:15 <Carole Ceballos M - 01/26/18 15:05> Abnormal lab results 01/24/18 01/25/18 01/25/18 Range/Units 16:20 20:00 20:00 WBC 13.1 H (4.0-11.0) th/mm3 RBC 3.23 L (4.50-5.90) mil/mm3 Hgb 9.6 L (13.0-17.0) gm/dL Hct 29.4 L (39.0-51.0) % RDW 18.3 H (11.6-17.2) % Plt Count 58 L (150-450) th/mm3 Neut % (Auto) 80.6 H (16.0-70.0) % Lymph % (Auto) 6.6 L (9.0-44.0) % [place] % (Auto) 8.1 H (0.0-8.0) % Eos % (Auto) 4.3 H (0.0-4.0) % Neut # (Auto) 10.5 H (1.8-7.7) th/mm3 Lymph # (Auto) 0.9 L (1.0-4.8) th/mm3 [place] # (Auto) 1.1 H (0.0-0.9) th/mm3 Eos # (Auto) 0.6 H (0.0-0.4) th/mm3 Platelet Estimate Low L (Normal) PT 18.3 H (9.8-11.6) sec APTT 43.7 H (24.3-30.1) sec BUN (7-18) mg/dL Creatinine (0.60-1.30) mg/dL Estimated GFR (>89) mL/min Random Glucose (74-106) mg/dL Calcium (8.5-10.1) mg/dL Prot Corrected Calcium (8.5-10.1) mg/dL AST (15-37) U/L Total Protein (6.4-8.2) g/dL Albumin (3.4-5.0) g/dL Vancomycin Trough (5.0-10.0) mcg/mL MTS Gel Crossmatch See Detail 01/25/18 01/26/18 01/26/18 Range/Units 20:00 00:10 01:45 WBC (4.0-11.0) th/mm3 RBC (4.50-5.90) mil/mm3 Hgb (13.0-17.0) gm/dL Hct (39.0-51.0) % RDW (11.6-17.2) % Plt Count (150-450) th/mm3 Neut % (Auto) (16.0-70.0) % Lymph % (Auto) (9.0-44.0) % [place] % (Auto) (0.0-8.0) % Eos % (Auto) (0.0-4.0) % Neut # (Auto) (1.8-7.7) th/mm3 Lymph # (Auto) (1.0-4.8) th/mm3 [place] # (Auto) (0.0-0.9) th/mm3 Eos # (Auto) (0.0-0.4) th/mm3 Platelet Estimate (Normal) PT (9.8-11.6) sec APTT 52.2 H (24.3-30.1) sec BUN (7-18) mg/dL Creatinine 1.39 H (0.60-1.30) mg/dL Estimated GFR 51 L (>89) mL/min Random Glucose 131 H (74-106) mg/dL Calcium 7.3 L* D (8.5-10.1) mg/dL Prot Corrected Calcium 7.8 L (8.5-10.1) mg/dL AST (15-37) U/L Total Protein 6.1 L D (6.4-8.2) g/dL Albumin (3.4-5.0) g/dL Vancomycin Trough 15.2 H (5.0-10.0) mcg/mL MTS Gel Crossmatch 01/26/18 01/26/18 01/26/18 Range/Units 05:15 05:15 05:15 WBC 13.8 H (4.0-11.0) th/mm3 RBC 2.77 L (4.50-5.90) mil/mm3 Hgb 8.4 L (13.0-17.0) gm/dL Hct 25.1 L (39.0-51.0) % RDW 18.5 H (11.6-17.2) % Plt Count 48 L (150-450) th/mm3 Neut % (Auto) 80.6 H (16.0-70.0) % Lymph % (Auto) 7.8 L (9.0-44.0) % [place] % (Auto) 10.9 H (0.0-8.0) % Eos % (Auto) (0.0-4.0) % Neut # (Auto) 11.1 H (1.8-7.7) th/mm3 Lymph # (Auto) (1.0-4.8) th/mm3 [place] # (Auto) 1.5 H (0.0-0.9) th/mm3 Eos # (Auto) (0.0-0.4) th/mm3 Platelet Estimate Low L (Normal) PT (9.8-11.6) sec APTT 56.7 H (24.3-30.1) sec BUN 21 H (7-18) mg/dL Creatinine 1.41 H (0.60-1.30) mg/dL Estimated GFR 51 L (>89) mL/min Random Glucose 110 H (74-106) mg/dL Calcium 7.8 L (8.5-10.1) mg/dL Prot Corrected Calcium (8.5-10.1) mg/dL AST 66 H (15-37) U/L Total Protein 5.8 L (6.4-8.2) g/dL Albumin 2.1 L (3.4-5.0) g/dL Vancomycin Trough (5.0-10.0) mcg/mL MTS Gel Crossmatch Short CBC 01/25/18 01/26/18 Range/Units 20:00 05:15 WBC 13.1 H 13.8 H (4.0-11.0) th/mm3 Hgb 9.6 L 8.4 L (13.0-17.0) gm/dL Hct 29.4 L 25.1 L (39.0-51.0) % Plt Count 58 L 48 L (150-450) th/mm3 BMP 01/25/18 01/26/18 20:00 05:15 Sodium 139 140 Potassium 4.4 4.7 Chloride 105 107 Carbon Dioxide 24.2 25.9 BUN 18 21 H Creatinine 1.39 H 1.41 H Calcium 7.3 L* D 7.8 L Liver Function 01/26/18 Range/Units 05:15 Total Bilirubin 0.5 (0.2-1.0) mg/dL AST 66 H (15-37) U/L ALT 35 (12-78) U/L Alkaline Phosphatase 63 (45-117) U/L Albumin 2.1 L (3.4-5.0) g/dL <Carole Ceballos - 01/26/18 15:05> Abnormal lab results 01/20/18 01/21/18 01/21/18 Range/Units 13:00 05:25 05:25 WBC 12.7 H (4.0-11.0) th/mm3 RBC 3.21 L (4.50-5.90) mil/mm3 Hgb 10.0 L (13.0-17.0) gm/dL Hct 29.9 L (39.0-51.0) % Plt Count 29 L (150-450) th/mm3 Neut % (Auto) 74.6 H (16.0-70.0) % Lymph % (Auto) 8.4 L (9.0-44.0) % [place] % (Auto) 13.2 H (0.0-8.0) % Neut # (Auto) 9.4 H (1.8-7.7) th/mm3 [place] # (Auto) 1.7 H (0.0-0.9) th/mm3 Platelet Estimate Low L (Normal) APTT (24.3-30.1) sec Sodium 135 L (136-145) meq/L BUN 22 H (7-18) mg/dL Creatinine 1.86 H (0.60-1.30) mg/dL Estimated GFR 37 L (>89) mL/min Calcium 8.4 L (8.5-10.1) mg/dL Urine Clarity Hazy H (Clear) Urine Protein 100 H (Neg-Trace) mg/dL Urine Occult Blood Large H (Negative) Urine RBC 70 H (0-3) /hpf Urine Bacteria Rare H (None) /hpf 01/21/18 Range/Units 05:25 WBC (4.0-11.0) th/mm3 RBC (4.50-5.90) mil/mm3 Hgb (13.0-17.0) gm/dL Hct (39.0-51.0) % Plt Count (150-450) th/mm3 Neut % (Auto) (16.0-70.0) % Lymph % (Auto) (9.0-44.0) % [place] % (Auto) (0.0-8.0) % Neut # (Auto) (1.8-7.7) th/mm3 [place] # (Auto) (0.0-0.9) th/mm3 Platelet Estimate (Normal) APTT 78.6 H (24.3-30.1) sec Sodium (136-145) meq/L BUN (7-18) mg/dL Creatinine (0.60-1.30) mg/dL Estimated GFR (>89) mL/min Calcium (8.5-10.1) mg/dL Urine Clarity (Clear) Urine Protein (Neg-Trace) mg/dL Urine Occult Blood (Negative) Urine RBC (0-3) /hpf Urine Bacteria (None) /hpf Short CBC 01/21/18 Range/Units 05:25 WBC 12.7 H (4.0-11.0) th/mm3 Hgb 10.0 L (13.0-17.0) gm/dL Hct 29.9 L (39.0-51.0) % Plt Count 29 L (150-450) th/mm3 BMP 01/21/18 05:25 Sodium 135 L Potassium 4.0 Chloride 102 Carbon Dioxide 21.8 BUN 22 H Creatinine 1.86 H Calcium 8.4 L Urine 01/20/18 Range/Units 13:00 Urine Color Yellow (Yellw/Straw) Urine Clarity Hazy H (Clear) Urine pH 5.0 (5.0-8.5) Ur Specific [place] 1.017 (1.002-1.035) Urine Protein 100 H (Neg-Trace) mg/dL Urine Glucose (UA) Negative (Negative) mg/dL <Frederick Denis H - 01/21/18 09:07> - Imaging Impressions Neck MRA 01/26/18 00:00 CONCLUSION: 1. Limited exam because of lack of intravenous contrast. 2. Phase contrast study was performed. Correlation ultrasound would be of benefit. Stenosis of the left does not not appear to be hemodynamically significant. _ Percent stenosis is calculated using the diameter of the stenotic region over the diameter of the normal distal internal carotid artery _ Head MRI 01/26/18 10:49 CONCLUSION: 1. Encephalomalacia involving the left occipital lobe with ex vacuo dilatation of the atrium of the left lateral ventricle. 2. No acute infarct, acute hemorrhage, midline shift or extra-axial fluid collections. Head MRA 01/26/18 10:49 CONCLUSION: 1. Anatomic variant of the [place] as above. 2. Otherwise, intracranial vessels are all patent without aneurysmal disease. Cervical Spine MRI 01/26/18 10:50 CONCLUSION: 1. Small broad-based central to left paracentral focal disc bulges at C4-5 and C5-6 resulting and mild spinal stenosis and mild bilateral foraminal narrowing. Mild facet joint hypertrophy is noted bilaterally at these levels. 2. Minimal diffuse disc bulges at C3-4 and C6-7. 3. Minimal bilateral foraminal narrowing at C3-4. <Carole Ceballos M - 01/26/18 15:05> Impressions Chest X-Ray 01/20/18 00:00 CONCLUSION: Air-fluid level seen previously in the left cavitary foci are decreased in conspicuity. This study is otherwise stable. Thoracic Spine MRI 01/20/18 00:00 CONCLUSION: 1. Stable examination with abnormal left hemithorax. 2. Very slight enhancement seen along the lower thoracic spinal cord on the right may be related to nerve root enhancement or drop metastases. Is not well evaluated on this study. <Frederick Denis H - 01/21/18 09:07> Physical Exam Vital signs: Vital Signs 01/25/18 18:10 01/25/18 18:30 01/25/18 18:45 Temperature 97.8 F Pulse Rate 75 86 89 Respiratory Rate 21 21 21 Blood Pressure 137/65 185/80 H 165/76 H Pulse Oximetry 98 98 98 01/25/18 19:00 01/25/18 19:46 01/25/18 20:00 Temperature 97.6 F 98.1 F Pulse Rate 92 H 87 Respiratory Rate 21 18 Blood Pressure 157/71 H 180/79 H Pulse Oximetry 98 100 98 01/26/18 00:00 01/26/18 04:00 Temperature 98.7 F 99 F Pulse Rate 74 84 Respiratory Rate 16 12 Blood Pressure 161/69 H 174/69 H Pulse Oximetry 97 98 Intake & Output 01/25/18 01/26/18 01/26/18 18:59 06:59 18:59 Intake Total 5250 / 5250 501 / 501 250 / 250 Output Total 1750 / 1750 1650 / 1650 Balance 3500 / 3500 -1149 / -1149 250 / 250 Weight 73.5 kg Intake: IV 250 / 250 501 / 501 250 / 250 Novastan Inj 250 MG In NS Inj 151 / 151 250 / 250 247.5 ML @ Per Protocol IV.CONT TITRATE PRN Rx#:[id number] Maxipime Inj 2,000 MG In NS Inj 100 / 100 100 ML @ 200 mls/hr IV.SIG Q12H [facility] Rx#:[id number] Vancomycin Inj 1,000 MG In NS 250 / 250 250 / 250 Inj 250 ML @ 250 mls/hr IV.SIG Q18H [facility] Rx#:[id number] Anesthesia Amount 4500 / 4500 Mass Transfusion Protocol 500 / 500 Output: Urine 1500 / 1500 Estimated Blood Loss 250 / 250 Urine Amount (Catheter) 1650 / 1650 Indwelling Urethral Catheter 1649 / 1650 Other: # Voids 1 Date of Last Bowel Movement 01/19/18 <LinCarole M - 01/26/18 15:05> Vital Signs 01/20/18 12:00 01/20/18 12:51 01/20/18 15:52 Temperature 98.4 F Pulse Rate 61 Respiratory Rate 20 Blood Pressure 149/68 H Pulse Oximetry 95 96 96 01/20/18 16:00 01/20/18 20:00 01/20/18 22:31 Temperature 98.2 F 98.3 F Pulse Rate 70 90 Respiratory Rate 18 18 18 Blood Pressure 149/75 H 186/89 H Pulse Oximetry 94 L 92 L 01/21/18 00:00 01/21/18 04:00 Temperature 97.5 F L 98.1 F Pulse Rate 75 82 Respiratory Rate 18 18 Blood Pressure 152/79 H 172/87 H Pulse Oximetry 91 L 92 L Intake & Output 01/20/18 01/21/18 01/21/18 18:59 06:59 18:59 Intake Total 480 / 480 653.6 / 653.6 Output Total 1000 / 1000 Balance 480 / 480 -346.4 / -346.4 Weight 69.1 kg Intake: IV 173.6 / 173.6 Novastan Inj 250 MG In NS Inj 173.6 / 173.6 247.5 ML @ Per Protocol IV.CONT TITRATE PRN Rx#:[id number] Oral 480 / 480 480 / 480 Output: Urine 1000 / 1000 Other: # Voids 6 6 Date of Last Bowel Movement 01/20/18 # Bowel Movements 1 <Frederick Denis H - 01/21/18 09:07> Narrative: GENERAL: Thin appearing male lying in bed in no acute distress with significant other at bedside. SKIN: Warm and dry. No rash. HEENT: Atraumatic, normocephalic with extraocular motions intact. No rhinorrhea. No visible lymphadenopathy or jugulovenous distension appreciated. CARDIOVASCULAR: Regular rate and rhythm without obvious murmurs, gallops, or rubs. 2+ pulses in all four extremities. RESPIRATORY: Prolonged inspiratory and expiratory phase. Decreased breath sounds of the bilateral lower lobes without obvious CRW. No increased work of breathing at this time. Thoracotomy incision appears to be well-healing. GASTROINTESTINAL: Abdomen soft, non-tender, nondistended with positive bowel sounds. No masses appreciated. MUSCULOSKELETAL: No cyanosis or edema. Continued decreased sensation over left posterior calf, unchanged from previous exams. Mild tenderness to palpation of the bilateral calves stable from previous exams per patient. NEURO/PSYCH: Afocal. Awake, alert, and oriented x3. Normal speech and judgement. <Frederick Denis H - 01/21/18 09:53> Assessment and Plan - Assessment (1) Pain in both lower legs Code(s): M79.661 - Pain in right lower leg; M79.662 - Pain in left lower leg Status: Acute (2) Heparin induced thrombocytopenia Code(s): D75.82 - Heparin induced thrombocytopenia (HIT) Status: Acute (3) Hypertension Code(s): I10 - Essential (primary) hypertension Status: Acute (4) EVON (acute kidney injury) Code(s): N17.9 - Acute kidney failure, unspecified Status: Acute (5) SIRS (systemic inflammatory response syndrome) Code(s): R65.10 - Systemic inflammatory response syndrome (SIRS) of non- infectious origin without acute organ dysfunction Status: Resolved (6) Metastatic primary lung cancer Code(s): C34.90 - Malignant neoplasm of unspecified part of unspecified bronchus or lung Status: Acute (7) Thrombosis of right saphenous vein Code(s): I82.811 - Embolism and thrombosis of superficial veins of right lower extremity Status: Acute (8) Anemia Code(s): D64.9 - Anemia, unspecified Status: Acute (9) Avascular necrosis of hip Code(s): M87.059 - Idiopathic aseptic necrosis of unspecified femur Status: Acute (10) Atrial fibrillation Code(s): I48.91 - Unspecified atrial fibrillation Status: Acute (11) Nutrition, metabolism, and development symptoms Code(s): R63.8 - Other symptoms and signs concerning food and fluid intake Status: Acute <Carole Ceballos - 01/26/18 15:05> (1) SIRS (systemic inflammatory response syndrome) Code(s): R65.10 - Systemic inflammatory response syndrome (SIRS) of non- infectious origin without acute organ dysfunction Status: Acute Plan: Patient currently meeting SIRS criteria continued temperature despite scheduled Tylenol to 100.1 with leukocytosis. No obvious source of infection, however inflammatory response could be related to malignancy versus thrombosis. CBC: Stable leukocytosis to 12.7 with neutrophils of 74.6% Chest x-ray: Stable from admission Urinalysis: Negative leukocyte esterase and nitrite, large occult blood, 100 protein, rare bacteria; otherwise negative -Blood cultures 01/21/18: Pending -Lactic Acid: Pending -CRP: Pending -ESR: Pending (2) Creatinine elevation Code(s): R79.89 - Other specified abnormal findings of blood chemistry Status : Acute Plan: -Patient with increasing serum creatinine during hospitalization. Admitted with Cr of 1.2. -Possibly related to contrast administration during hospitalization -Monitor I/Os -CMP: Cr 1.86 -1L NS bolus ordered (3) Pain in both lower legs Code(s): M79.661 - Pain in right lower leg; M79.662 - Pain in left lower leg Status: Acute Plan: Patient presented after worsening pain and weakness in bilateral legs. Upon further discussion with patient, has signs and symptoms of peripheral arterial disease Aorta CTA shows severe atherosclerotic disease with severe narrowing of distal aorta -Mural thrombus at level of distal aorta -Infarction of the inferior right kidney MRI with no acute findings Cervical MRI shows stenosis Thoracic MRI with possible drop mets Lumbar MRI wnl EEG wnl -Vascular consulted-appreciate recs -Non-candidate for revascularization at this time due to thrombocytopenia as well as his metastatic disease -Heme/onc consulted -Pt with ischemic pain -Treating HIT with argatroban -Neurology consulted-appreciate recs -Increase gabapentin to 600 mg -Repeat thoracic MRI ordered -possible pending LP, holding due to thrombocytopenia -PT evaluating -recommend home health -Oxycodone and percocet PRN pain (4) Heparin induced thrombocytopenia Code(s): D75.82 - Heparin induced thrombocytopenia (HIT) Status: Acute Plan: Postop day #12 from lobectomy and s/p heparin 9 days on admission Heparin-induced thrombocytopenia antibody positive No transfusion recommended at this time due to possibility of further coagulation Hold all heparin forms Heme/onc consulted-HIT with thrombosis -Started argatroban gtt (5) Metastatic primary lung cancer Code(s): C34.90 - Malignant neoplasm of unspecified part of unspecified bronchus or lung Status: Acute Plan: Status post chemo in November, status post lobectomy Recent PET scans negative MRI spine shows possible mets Repeat brain MRI with no acute change -Management per oncology team; discussing case with patients Oncologist in [place] , Dr. Dillard -Regarding possible drop mets -Unsure of etiology at this time -Radiation oncology consulted -No therapy at this time due to low platelets (6) Thrombosis of right saphenous vein Code(s): I82.811 - Embolism and thrombosis of superficial veins of right lower extremity Status: Acute Plan: Lower extremity superficial vein, generally benign and self-limited however a larger vein is involved in this case Caution with propagation into the DVT system and PE possibility Likely due to abnormal coagulation at this time may repeat duplex ultrasound with further clinical signs Elevation Warm and cool compresses Compression stockings Pain management (7) Anemia Code(s): D64.9 - Anemia, unspecified Status: Acute Plan: No history of anemia per patient Likely chronic anemia, patient at high risk for bleeding due to thrombocytopenia Unsure of the exact cause, chemotherapy vs recent surgery vs chronic anemia (8) Atrial fibrillation Code(s): I48.91 - Unspecified atrial fibrillation Status: Acute Plan: History of Afib. Controlled rate Echo shows EF of 50-55% Segmental wall motion abnormalities with hypokinesis Continue telemetry Continue metoprolol Watch for arrhythmias (9) Nutrition, metabolism, and development symptoms Code(s): R63.8 - Other symptoms and signs concerning food and fluid intake Status: Acute Plan: Fluids: Tolerating PO Electrolytes: Follow-up BMP and replete as needed Nutrition: Regular diet DVT prophylaxis: Holding all heparin products, agratroban gtt Incentive spirometry <Frederick Denis - 01/21/18 09:48> - Attending Attestation The exam, history, and the medical decision-making described in the above note were completed with the assistance of the resident physician. I reviewed and agree with the findings presented. I attest that I had a vjda-bi-paab encounter with the patient on the same day, and personally performed and documented my assessment and findings in the medical record. he is fortunately responding to gabapentin as far as the severity of his pain <Carole Ceballos - 01/26/18 15:05> <Frederick Denis H - Last Filed: 01/21/18 09:48> (7) Anemia Qualifiers: Anemia type: bone marrow failure Bone marrow failure anemia type: pancytopenia, antineoplastic chemotherapy-induced Qualified Code(s): D61.810 - Antineoplastic chemotherapy induced pancytopenia; T45.1X5A - Adverse effect of antineoplastic and immunosuppressive drugs, initial encounter <Carole Ceballos M - Last Filed: 01/26/18 15:05> (8) Anemia Qualifiers: Anemia type: bone marrow failure Bone marrow failure anemia type: pancytopenia, antineoplastic chemotherapy-induced Qualified Code(s): D61.810 - Antineoplastic chemotherapy induced pancytopenia; T45.1X5A - Adverse effect of antineoplastic and immunosuppressive drugs, initial encounter (9) Avascular necrosis of hip Qualifiers: Laterality: right Qualified Code(s): M87.051 - Idiopathic aseptic necrosis of right femur <Frederick Denis H - Last Filed: 01/21/18 09:48> (7) Anemia Qualifiers: Anemia type: bone marrow failure Bone marrow failure anemia type: pancytopenia, antineoplastic chemotherapy-induced Qualified Code(s): D61.810 - Antineoplastic chemotherapy induced pancytopenia; T45.1X5A - Adverse effect of antineoplastic and immunosuppressive drugs, initial encounter <Carole Ceballos - Last Filed: 01/26/18 15:05> (8) Anemia Qualifiers: Anemia type: bone marrow failure Bone marrow failure anemia type: pancytopenia, antineoplastic chemotherapy-induced Qualified Code(s): D61.810 - Antineoplastic chemotherapy induced pancytopenia; T45.1X5A - Adverse effect of antineoplastic and immunosuppressive drugs, initial encounter (9) Avascular necrosis of hip Qualifiers: Laterality: right Qualified Code(s): M87.051 - Idiopathic aseptic necrosis of right femur
[2018-01-21] MEDS ORDERED: Sod Chloride 0.9% Inj 1,000 ML IV.SIG SCH (09:15)
[2018-01-21] MEDS: Budesonide-Formoterol 160/4.5 MCG 6 GM Inhaler INH SCH ×2 (09:30→20:21)
--- NOTE | 2018-01-21 11:39 | P.PNONC ---
Subjective Interval history: T-max 101.1F. Patient reports still with some tingling and weakness to the left lower extremity, denies any to the right. Denies any bleeding. Continues on Argatroban drip. Reports "okay appetite, food just does not taste well and I am definitely not drinking enough water". Objective Vital Signs/Intake & Output: Vital Signs 01/20/18 12:00 01/20/18 12:51 01/20/18 15:52 Temperature 98.4 F Pulse Rate 61 Respiratory Rate 20 Blood Pressure 149/68 H Pulse Oximetry 95 96 96 01/20/18 16:00 01/20/18 20:00 01/20/18 22:31 Temperature 98.2 F 98.3 F Pulse Rate 70 90 Respiratory Rate 18 18 18 Blood Pressure 149/75 H 186/89 H Pulse Oximetry 94 L 92 L 01/21/18 00:00 01/21/18 04:00 01/21/18 08:00 Temperature 97.5 F L 98.1 F 101.1 F H Pulse Rate 75 82 89 Respiratory Rate 18 18 18 Blood Pressure 152/79 H 172/87 H 137/89 Pulse Oximetry 91 L 92 L 97 01/21/18 10:14 Temperature Pulse Rate Respiratory Rate Blood Pressure Pulse Oximetry 97 Intake & Output 01/20/18 01/21/18 01/21/18 18:59 06:59 18:59 Intake Total 480 / 480 653.6 / 653.6 Output Total 1000 / 1000 Balance 480 / 480 -346.4 / -346.4 Weight 69.1 kg Intake: IV 173.6 / 173.6 Novastan Inj 250 MG In NS Inj 173.6 / 173.6 247.5 ML @ Per Protocol IV.CONT TITRATE PRN Rx#:[id number] Oral 480 / 480 480 / 480 Output: Urine 1000 / 1000 Other: # Voids 6 6 Date of Last Bowel Movement 01/20/18 # Bowel Movements 1 Result Diagrams: 01/21/18 05:25 01/21/18 05:25 Laboratory Results: Laboratory Results - last 24 hr 01/20/18 01/21/18 01/21/18 13:00 05:25 05:25 WBC 12.7 H RBC 3.21 L Hgb 10.0 L Hct 29.9 L MCV 93.1 MCH 31.2 MCHC 33.5 RDW 16.2 Plt Count 29 L MPV 9.1 Prelim Diff (Auto) Slide review pending Neut % (Auto) 74.6 H Lymph % (Auto) 8.4 L [place] % (Auto) 13.2 H Eos % (Auto) 3.1 Baso % (Auto) 0.7 Neut # (Auto) 9.4 H Lymph # (Auto) 1.1 [place] # (Auto) 1.7 H Eos # (Auto) 0.4 Baso # (Auto) 0.1 WBC Differential . Diff Scan Auto diff confirmed Differential Comment . Platelet Estimate Low L Platelet Morphology Normal ESR APTT Sodium 135 L Potassium 4.0 Chloride 102 Carbon Dioxide 21.8 Anion Gap 11 BUN 22 H Creatinine 1.86 H Estimated GFR 37 L Random Glucose 88 Lactic Acid Calcium 8.4 L Urine Color Yellow Urine Clarity Hazy H Urine pH 5.0 Ur Specific [place] 1.017 Urine Protein 100 H Urine Glucose (UA) Negative Urine Ketones 20 Urine Occult Blood Large H Urine Nitrate Negative Urine Bilirubin Negative Urine Urobilinogen 4 or greater Ur Leukocyte Esterase Negative Urine RBC 70 H Urine WBC 4 Ur Squamous Epith Cells <1 Urine Bacteria Rare H Micro UA Comment Culture not ind Ur Microscopic Review Not Reportable Urine Culture Comments Culture not ind 01/21/18 01/21/18 01/21/18 05:25 08:40 10:25 WBC RBC Hgb Hct MCV MCH MCHC RDW Plt Count MPV Prelim Diff (Auto) Neut % (Auto) Lymph % (Auto) [place] % (Auto) Eos % (Auto) Baso % (Auto) Neut # (Auto) Lymph # (Auto) [place] # (Auto) Eos # (Auto) Baso # (Auto) WBC Differential Diff Scan Differential Comment Platelet Estimate Platelet Morphology ESR 66 H APTT 78.6 H 72.4 H Sodium Potassium Chloride Carbon Dioxide Anion Gap BUN Creatinine Estimated GFR Random Glucose Lactic Acid Calcium Urine Color Urine Clarity Urine pH Ur Specific [place] Urine Protein Urine Glucose (UA) Urine Ketones Urine Occult Blood Urine Nitrate Urine Bilirubin Urine Urobilinogen Ur Leukocyte Esterase Urine RBC Urine WBC Ur Squamous Epith Cells Urine Bacteria Micro UA Comment Ur Microscopic Review Urine Culture Comments 01/21/18 10:25 WBC RBC Hgb Hct MCV MCH MCHC RDW Plt Count MPV Prelim Diff (Auto) Neut % (Auto) Lymph % (Auto) [place] % (Auto) Eos % (Auto) Baso % (Auto) Neut # (Auto) Lymph # (Auto) [place] # (Auto) Eos # (Auto) Baso # (Auto) WBC Differential Diff Scan Differential Comment Platelet Estimate Platelet Morphology ESR APTT Sodium Potassium Chloride Carbon Dioxide Anion Gap BUN Creatinine Estimated GFR Random Glucose Lactic Acid 0.7 Calcium Urine Color Urine Clarity Urine pH Ur Specific [place] Urine Protein Urine Glucose (UA) Urine Ketones Urine Occult Blood Urine Nitrate Urine Bilirubin Urine Urobilinogen Ur Leukocyte Esterase Urine RBC Urine WBC Ur Squamous Epith Cells Urine Bacteria Micro UA Comment Ur Microscopic Review Urine Culture Comments Medications: Active Medications Generic Name Dose Route Start Last Admin Trade Name Freq PRN Reason Stop Dose Admin Acetaminophen 500 mg 01/17/18 14:00 01/21/18 06:43 Tylenol PO 500 mg Q8HR SHAVONNE Administration Budesonide/Formoterol Fumarate 2 puff 01/17/18 14:00 01/21/18 09:30 Symbicort 160/4.5 Mcg Inh INH 2 puff BID SHAVONNE Administration Folic Acid 1 mg 01/17/18 13:45 01/21/18 08:48 Folic Acid PO 1 mg DAILY SHAVONNE Administration Gabapentin 600 mg 01/20/18 09:30 01/21/18 08:48 Neurontin PO 600 mg DAILY SHAVONNE Administration Argatroban 250 mg/ Sodium 250 mls @ 0 mls/hr 01/18/18 15:00 01/21/18 07:45 Chloride IV.CONT 2 mcg/kg/min TITRATE PRN 8.29 mls/hr Per Protocol Titration Protocol Per Protocol Metoprolol Tartrate 25 mg 01/17/18 13:45 01/21/18 08:48 Lopressor PO 25 mg BID SHAVONNE Administration Morphine Sulfate 4 mg 01/18/18 02:56 01/20/18 20:43 Morphine Inj IV.PUSH 4 mg Q3H PRN Administration BREAKTHROUGH PAIN Oxycodone HCl 10 mg 01/18/18 02:56 01/21/18 08:48 Roxicodone PO 10 mg Q4H PRN Administration PAIN SCALE 6 TO 10 Pantoprazole Sodium 40 mg 01/17/18 14:00 01/21/18 08:48 Protonix PO 40 mg DAILY SHAVONNE Administration Sennosides 17.2 mg 01/17/18 14:08 01/20/18 22:01 Senokot PO 17.2 mg Q12H PRN Administration Moderate Constipation Sodium Chloride 2 ml 01/17/18 11:17 01/20/18 20:43 Ns Flush IV.FLUSH 2 ml PRN PRN Administration FLUSH AFTER USING IV ACCESS Temazepam 15 mg 01/17/18 21:00 01/20/18 22:01 Restoril PO 15 mg HS PRN Administration INSOMNIA Objective Remarks: GENERAL: Middle-aged male patient, lying in bed, in no acute distress. SKIN: Warm and dry. HEAD: Normocephalic. EYES: No scleral icterus. No injection or drainage. MOUTH: Dry, pink mucous membranes. No ulcerations or sores. NECK: Supple, trachea midline. CARDIOVASCULAR: Regular rate and rhythm without murmurs. RESPIRATORY: Anterior breath sounds clear, non-labored, on RA. GASTROINTESTINAL: Abdomen soft, non-tender, nondistended. EXTREMITIES: No cyanosis, or edema. Bilateral feet cool to touch. PT and DP pulses non-palpable, cap refill <3 sec. MUSCULOSKELETAL: Adequate muscle tone. LLE strength slightly less than RLE. Equal strength to BUE. NEUROLOGICAL: No obvious focal deficit. Awake, alert, and oriented x3. PSYCHIATRIC: Appropriate mood and affect; insight and judgment normal. 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 Bernstein is a pleasant 62-year-old gentleman with a history of non-small cell lung cancer with brain metastasis, status post craniotomy with resection followed by stereotactic radiosurgery with gamma knife, 3-4 cycles of preop Immunochemotherapy with 2 doses of Platinol and Alimta he also underwent thoracotomy and resection of the left upper lobe and wedge resection of the left lower lobe on 01/01/2018. Patient had minimal residual disease of 0.6 cm and also the lymph nodes were negative. Margins were also negative. During this admission the patient was found to have severe thrombocytopenia. Patient did have recent exposure to subcutaneous heparin after his recent surgery. Plan: 1. Non-small cell lung cancer with brain metastasis, status post above treatments. MR thoracic spine on 01/17/2018 showed some small enhancing nodules identified along the surface of the spinal cord in the lower thoracic spine dural extra medullary lesions and drop metastasis. Neurosurgery following, they report the thoracic abnormality could also be vascular vs. mets. Repeat thoracic MR on 01/20/2018, concluded, stable exam with abnormal left hemithorax. Very slight enhancement seen along the lower thoracic spinal cord on the right , may be related to nerve root enhancement or drop metastasis. Is not well evaluated on this study. 2. 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 Platelets increasing, at 29,000 today. Continue on argatroban. CHAI pending. Avoid heparin exposure. Monitor for bleeding. No transfusions warranted at this time. 3. Thrombosis of right saphenous vein. On argatrpban drip for thrombocytopenia. 4. Left lower extremity tingling, neurology following, status post MRI yesterday, with the above findings. 5. Fevers, of unknown origin. Chest x-ray on 01/20/2018 with stable. Blood cultures are pending. Will start vancomycin and cefepime, CrCL 39. Stop scheduled Tylenol for pain, as this could be masking fevers. Avoid NSAIDs with low platelet count. Patient has oxycodone and morphine ordered for breakthrough pain.
[2018-01-21] MEDS ORDERED: Vancomycin Consult Pharmacy OTHER PRN (12:22)
[2018-01-21] MEDS ORDERED: Vancomycin Inj 1 GM/200 ML PIGGYBACK IV.SIG SCH (13:00)
[2018-01-21] MEDS ORDERED: Vancomycin Inj 1,000 MG in Sodium Chlor 0.9% Inj 250 ML IV.SIG SCH (14:00)
--- NOTE | 2018-01-21 17:07 | P.PNNEU ---
Subjective Subjective Comments: LEG WEAKNESS Active Medications: Active Medications Acetaminophen (Tylenol) 650 mg PO Q6H PRN PRN Reason: FEVER > 100.4 F Al Hydroxide/Mg Hydroxide (Milk Of Magnesia Liq) 30 ml PO Q12H PRN PRN Reason: Mild Constipation Bisacodyl (Dulcolax Supp) 10 mg RECTAL DAILY PRN PRN Reason: SEVERE CONSITIPATION Budesonide/Formoterol Fumarate (Symbicort 160/4.5 Mcg Inh) 2 puff INH BID [facility] Last Admin: 01/21/18 09:30 Dose: 2 puff Clonidine HCl (Catapres) 0.1 mg PO Q6H PRN PRN Reason: SEE LABEL COMMENTS Folic Acid (Folic Acid) 1 mg PO DAILY [facility] Last Admin: 01/21/18 08:48 Dose: 1 mg Gabapentin (Neurontin) 600 mg PO DAILY [facility] Last Admin: 01/21/18 08:48 Dose: 600 mg Argatroban 250 mg/ Sodium (Chloride) 250 mls @ 0 mls/hr IV.CONT TITRATE PRN; Protocol PRN Reason: Per Protocol Last Titration: 01/21/18 12:20 Dose: 2 mcg/kg/min, 8.29 mls/hr Sodium Chloride (Ns Inj) 1,000 mls @ 0 mls/hr IV.SIG BOLUS [facility] Last Admin: 01/21/18 13:37 Dose: 200 mls/hr Cefepime HCl 2,000 mg/ Sodium (Chloride) 100 mls @ 200 mls/hr IV.SIG Q12H [facility] Last Infusion: 01/21/18 16:30 Dose: Infused Vancomycin HCl 1,000 mg/ (Sodium Chloride) 250 mls @ 250 mls/hr IV.SIG Q24H SHAVONNE Lactulose (Lactulose Liq) 30 ml PO DAILY PRN PRN Reason: SEVERE CONSITIPATION Metoprolol Tartrate (Lopressor) 25 mg PO BID [facility] Last Admin: 01/21/18 08:48 Dose: 25 mg Miscellaneous Information ([facility] Ordered Lab Info) 0 each OTHER ONCE ONE Stop: 01/24/18 12:46 Morphine Sulfate (Morphine Inj) 4 mg IV.PUSH Q3H PRN PRN Reason: BREAKTHROUGH PAIN Last Admin: 01/20/18 20:43 Dose: 4 mg Naloxone HCl (Narcan Inj) 0.4 mg IV.PUSH UNSCH PRN PRN Reason: SEE LABEL COMMENTS Oxycodone HCl (Roxicodone) 10 mg PO Q4H PRN PRN Reason: PAIN SCALE 6 TO 10 Last Admin: 01/21/18 14:53 Dose: 10 mg Pantoprazole Sodium (Protonix) 40 mg PO DAILY SHAVONNE Last Admin: 01/21/18 08:48 Dose: 40 mg Pharmacy Profile Note (Vancomycin Consult Pharmacy) 1 each OTHER UNSCH PRN PRN Reason: Pharmacy to dose Sennosides (Senokot) 17.2 mg PO Q12H PRN PRN Reason: Moderate Constipation Last Admin: 01/20/18 22:01 Dose: 17.2 mg Sodium Chloride (Ns Flush) 2 ml IV.FLUSH PRN PRN PRN Reason: FLUSH AFTER USING IV ACCESS Last Admin: 01/20/18 20:43 Dose: 2 ml Temazepam (Restoril) 15 mg PO HS PRN PRN Reason: INSOMNIA Last Admin: 01/20/18 22:01 Dose: 15 mg Allergies/Adverse Reactions: Allergies Allergy/AdvReac Type Severity Reaction Status Date / Time No Known Allergies Allergy Unverified 01/17/18 11:06 Review of Systems All other systems reviewed negative except as stated in HPI Physical Exam Vital signs: Vital Signs 01/20/18 20:00 01/20/18 22:31 01/21/18 00:00 Temperature 98.3 F 97.5 F L Pulse Rate 90 75 Respiratory Rate 18 18 18 Blood Pressure 186/89 H 152/79 H Pulse Oximetry 92 L 91 L 01/21/18 04:00 01/21/18 08:00 01/21/18 10:14 Temperature 98.1 F 101.1 F H Pulse Rate 82 81 Respiratory Rate 18 18 Blood Pressure 172/87 H 137/89 Pulse Oximetry 92 L 97 97 01/21/18 12:00 01/21/18 16:00 Temperature 98.3 F 100.2 F H Pulse Rate 68 90 Respiratory Rate 20 18 Blood Pressure 146/70 H 149/83 H Pulse Oximetry 96 95 Intake & Output 01/20/18 01/21/18 01/21/18 18:59 06:59 18:59 Intake Total 480 / 480 653.6 / 653.6 350 / 350 Output Total 1000 / 1000 Balance 480 / 480 -346.4 / -346.4 350 / 350 Weight 69.1 kg Intake: IV 173.6 / 173.6 350 / 350 Novastan Inj 250 MG In NS Inj 173.6 / 173.6 247.5 ML @ Per Protocol IV.CONT TITRATE PRN Rx#:[id number] Maxipime Inj 2,000 MG In NS Inj 100 / 100 100 ML @ 200 mls/hr IV.SIG Q12H SHAVONNE Rx#:[id number] Vancomycin Inj 1,000 MG In NS 250 / 250 Inj 250 ML @ 250 mls/hr IV.SIG Q12H SHAVONNE Rx#:[id number] Oral 480 / 480 480 / 480 Output: Urine 1000 / 1000 Other: # Voids 6 6 Date of Last Bowel Movement 01/20/18 # Bowel Movements 1 - Constitutional no acute distress - Routine HEENT Exam Head: Present: normocephalic Eye: Present: EOMI ENT: Present: mucous membranes moist - Routine Neck Exam Present: supple. Absent: JVD, carotid bruit - Routine Respiratory Exam Absent: rales, rhonchi - Routine Cardiovascular Exam Present: S1, S2 - Routine Abdominal Exam Present: soft, normoactive bowel sounds. Absent: tenderness, rebound - Routine Neurological Exam Present: alert, CN II-XII intact, motor deficit Objective Laboratory Results - last 24 hr 01/21/18 01/21/18 01/21/18 05:25 05:25 05:25 WBC 12.7 H RBC 3.21 L Hgb 10.0 L Hct 29.9 L MCV 93.1 MCH 31.2 MCHC 33.5 RDW 16.2 Plt Count 29 L MPV 9.1 Prelim Diff (Auto) Slide review pending Neut % (Auto) 74.6 H Lymph % (Auto) 8.4 L [facility] % (Auto) 13.2 H Eos % (Auto) 3.1 Baso % (Auto) 0.7 Neut # (Auto) 9.4 H Lymph # (Auto) 1.1 [facility] # (Auto) 1.7 H Eos # (Auto) 0.4 Baso # (Auto) 0.1 WBC Differential . Diff Scan Auto diff confirmed Differential Comment . Platelet Estimate Low L Platelet Morphology Normal ESR APTT 78.6 H Sodium 135 L Potassium 4.0 Chloride 102 Carbon Dioxide 21.8 Anion Gap 11 BUN 22 H Creatinine 1.86 H Estimated GFR 37 L Random Glucose 88 Lactic Acid Calcium 8.4 L 01/21/18 01/21/18 01/21/18 08:40 10:25 10:25 WBC RBC Hgb Hct MCV MCH MCHC RDW Plt Count MPV Prelim Diff (Auto) Neut % (Auto) Lymph % (Auto) [facility] % (Auto) Eos % (Auto) Baso % (Auto) Neut # (Auto) Lymph # (Auto) [facility] # (Auto) Eos # (Auto) Baso # (Auto) WBC Differential Diff Scan Differential Comment Platelet Estimate Platelet Morphology ESR 66 H APTT 72.4 H Sodium Potassium Chloride Carbon Dioxide Anion Gap BUN Creatinine Estimated GFR Random Glucose Lactic Acid 0.7 Calcium Review/Management - Review/Management Plan: D/W DR LING TRIAL OF DDECADRON 4MG QID MRI RPT NOT YET DONE PT EVAL cta showed some blockages but does have flow in ble arterial dr hannah not convinced the thoracic abn is met could be vascular? i dw neurorad check cpk labs hit rx per dr pablo hernandez recently fu echo some infarct in kidney ? 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 will have to repeat mri t spine concerned with new weak left ankle
[2018-01-21] MEDS: Morphine Inj 4 MG/ML Vial IV.PUSH PRN (20:53)
[2018-01-21] MEDS: Temazepam 15 MG Capsule PO PRN (22:30)
[2018-01-22] MEDS: Morphine Inj 4 MG/ML Vial IV.PUSH PRN ×2 (06:50→16:33)
[2018-01-22 07:55] LABS: Baso # (Auto) 0.1 th/mm3 (0.0-0.2); Baso % (Auto) 0.7 % (0.0-2.0); Eos # (Auto) 0.5 th/mm3 (0.0-0.4); Eos % (Auto) 4.2 % (0.0-4.0); Hematocrit 26.2 % (39.0-51.0); Hemoglobin 8.9 gm/dL (13.0-17.0); Lymph % (Auto) 8.8 % (9.0-44.0); Mean Corpuscular HGB Conc 33.9 % (32.0-36.0); Mean Corpuscular Hemoglobin 31.2 pg (27.0-34.0); Mean Corpuscular Volume 92.2 fL (80.0-100.0); Mean Platelet Volume 9.2 fL (7.0-11.0); Mono # (Auto) 1.6 th/mm3 (0.0-0.9); Neut # (Auto) 8.5 th/mm3 (1.8-7.7); Neut % (Auto) 72.3 % (16.0-70.0); Platelet Count 34 th/mm3 (150-450); Red Blood Count 2.84 mil/mm3 (4.50-5.90); Red Cell Distribution Width 16.5 % (11.6-17.2); White Blood Count 11.8 th/mm3 (4.0-11.0)
[2018-01-22 08:13] LABS: Albumin 2.4 g/dL (3.4-5.0); Anion Gap 11 meq/L (5-15); Aspartate Aminotransferase 57 U/L (15-37); Blood Urea Nitrogen 23 mg/dL (7-18); Calcium 8.4 mg/dL (8.5-10.1); Carbon Dioxide 21.6 meq/L (21.0-32.0); Chloride 103 meq/L (98-107); Glomerular Filtration Rate 38 mL/min (>89); Glucose,Random 102 mg/dL (74-106); Sodium 136 meq/L (136-145)
[2018-01-22 08:15] LABS: Alanine Aminotransferase 37 U/L (12-78)
[2018-01-22 08:17] LABS: Alkaline Phosphatase 70 U/L (45-117); Total Protein 6.4 g/dL (6.4-8.2)
--- NOTE | 2018-01-22 09:03 | P.PNFP ---
Subjective Interval history: Pt seen and examined this morning. Pt continues to spike low grade temps, up to 100.2 overnight. Pt endorses feeling slightly feverish during these times. States he had significant pain yesterday after walking around in his legs. No new areas or pain. The pain is the worse in his left calf and lower leg. States the pain medication and gabapentin helps with the pain. Otherwise, denies any other new symptoms. No chest pain, SOB, abdominal pain. Upon further discussion, he states his left leg pain is going up to his knee. Denies any pain shooting down for his hip. States the pain is the worse when he is laying completely flat, he is most comfortable when elevated about 10-15deg. Denies any saddle anesthesia since being admitted. No bowel or bladder incontinence or change in habits. <Richard Kuo - 01/22/18 12:19> Results - Labs Result diagrams: 01/22/18 07:11 01/22/18 07:11 <Stephanie Calzada - 01/22/18 17:26> Abnormal lab results 01/22/18 01/22/18 01/22/18 Range/Units 07:11 07:11 07:11 WBC 11.8 H (4.0-11.0) th/mm3 RBC 2.84 L (4.50-5.90) mil/mm3 Hgb 8.9 L (13.0-17.0) gm/dL Hct 26.2 L (39.0-51.0) % Plt Count 34 L (150-450) th/mm3 Neut % (Auto) 72.3 H (16.0-70.0) % Lymph % (Auto) 8.8 L (9.0-44.0) % Taylor % (Auto) 14.0 H (0.0-8.0) % Eos % (Auto) 4.2 H (0.0-4.0) % Neut # (Auto) 8.5 H (1.8-7.7) th/mm3 Taylor # (Auto) 1.6 H (0.0-0.9) th/mm3 Eos # (Auto) 0.5 H (0.0-0.4) th/mm3 Platelet Estimate Low L (Normal) APTT 73.7 H (24.3-30.1) sec BUN 23 H (7-18) mg/dL Creatinine 1.80 H (0.60-1.30) mg/dL Estimated GFR 38 L (>89) mL/min Calcium 8.4 L (8.5-10.1) mg/dL AST 57 H (15-37) U/L Albumin 2.4 L (3.4-5.0) g/dL Short CBC 01/22/18 Range/Units 07:11 WBC 11.8 H (4.0-11.0) th/mm3 Hgb 8.9 L (13.0-17.0) gm/dL Hct 26.2 L (39.0-51.0) % Plt Count 34 L (150-450) th/mm3 BMP 01/22/18 07:11 Sodium 136 Potassium 4.0 Chloride 103 Carbon Dioxide 21.6 BUN 23 H Creatinine 1.80 H Calcium 8.4 L Liver Function 01/22/18 Range/Units 07:11 Total Bilirubin 0.8 (0.2-1.0) mg/dL AST 57 H (15-37) U/L ALT 37 (12-78) U/L Alkaline Phosphatase 70 (45-117) U/L Albumin 2.4 L (3.4-5.0) g/dL <Stephanie Calzada - 01/22/18 17:26> Abnormal lab results 01/21/18 01/21/18 01/22/18 Range/Units 08:40 10:25 07:11 WBC 11.8 H (4.0-11.0) th/mm3 RBC 2.84 L (4.50-5.90) mil/mm3 Hgb 8.9 L (13.0-17.0) gm/dL Hct 26.2 L (39.0-51.0) % Plt Count 34 L (150-450) th/mm3 Neut % (Auto) 72.3 H (16.0-70.0) % Lymph % (Auto) 8.8 L (9.0-44.0) % Taylor % (Auto) 14.0 H (0.0-8.0) % Eos % (Auto) 4.2 H (0.0-4.0) % Neut # (Auto) 8.5 H (1.8-7.7) th/mm3 Taylor # (Auto) 1.6 H (0.0-0.9) th/mm3 Eos # (Auto) 0.5 H (0.0-0.4) th/mm3 ESR 66 H (0-20) mm/hr APTT 72.4 H (24.3-30.1) sec BUN (7-18) mg/dL Creatinine (0.60-1.30) mg/dL Estimated GFR (>89) mL/min Calcium (8.5-10.1) mg/dL AST (15-37) U/L Albumin (3.4-5.0) g/dL 01/22/18 01/22/18 Range/Units 07:11 07:11 WBC (4.0-11.0) th/mm3 RBC (4.50-5.90) mil/mm3 Hgb (13.0-17.0) gm/dL Hct (39.0-51.0) % Plt Count (150-450) th/mm3 Neut % (Auto) (16.0-70.0) % Lymph % (Auto) (9.0-44.0) % Taylor % (Auto) (0.0-8.0) % Eos % (Auto) (0.0-4.0) % Neut # (Auto) (1.8-7.7) th/mm3 Taylor # (Auto) (0.0-0.9) th/mm3 Eos # (Auto) (0.0-0.4) th/mm3 ESR (0-20) mm/hr APTT 73.7 H (24.3-30.1) sec BUN 23 H (7-18) mg/dL Creatinine 1.80 H (0.60-1.30) mg/dL Estimated GFR 38 L (>89) mL/min Calcium 8.4 L (8.5-10.1) mg/dL AST 57 H (15-37) U/L Albumin 2.4 L (3.4-5.0) g/dL Short CBC 01/22/18 Range/Units 07:11 WBC 11.8 H (4.0-11.0) th/mm3 Hgb 8.9 L (13.0-17.0) gm/dL Hct 26.2 L (39.0-51.0) % Plt Count 34 L (150-450) th/mm3 BMP 01/22/18 07:11 Sodium 136 Potassium 4.0 Chloride 103 Carbon Dioxide 21.6 BUN 23 H Creatinine 1.80 H Calcium 8.4 L Liver Function 01/22/18 Range/Units 07:11 Total Bilirubin 0.8 (0.2-1.0) mg/dL AST 57 H (15-37) U/L ALT 37 (12-78) U/L Alkaline Phosphatase 70 (45-117) U/L Albumin 2.4 L (3.4-5.0) g/dL <ChristenRichard rodriguez - 01/22/18 09:03> Physical Exam Vital signs: Vital Signs 01/21/18 20:00 01/22/18 00:00 01/22/18 03:17 Temperature 100.1 F H 98.5 F Pulse Rate 83 83 Respiratory Rate 18 20 20 Blood Pressure 143/70 H 160/76 H Pulse Oximetry 90 L 91 L 01/22/18 04:00 01/22/18 06:52 01/22/18 08:00 Temperature 100.2 F H 100.7 F H Pulse Rate 84 85 Respiratory Rate 20 20 18 Blood Pressure 166/77 H 181/82 H Pulse Oximetry 96 93 L 01/22/18 10:00 01/22/18 10:48 01/22/18 12:00 Temperature 98.2 F Pulse Rate 70 79 Respiratory Rate 16 Blood Pressure 125/60 112/57 L Pulse Oximetry 96 95 01/22/18 16:00 Temperature 98.2 F Pulse Rate 77 Respiratory Rate 16 Blood Pressure 142/60 H Pulse Oximetry 100 Intake & Output 01/21/18 01/22/18 01/22/18 18:59 06:59 18:59 Intake Total 1830 / 1830 820 / 820 526.4 / 526.4 Balance 1830 / 1830 820 / 820 526.4 / 526.4 Weight 69.1 kg Intake: IV 1350 / 1350 340 / 340 526.4 / 526.4 Novastan Inj 250 MG In NS Inj 240 / 240 176.4 / 176.4 247.5 ML @ Per Protocol IV.CONT TITRATE PRN Rx#:[id number] Maxipime Inj 2,000 MG In NS Inj 100 / 100 100 / 100 100 / 100 100 ML @ 200 mls/hr IV.SIG Q12H [facility] Rx#:[id number] NS Inj 1,000 ML @ Wide Open IV. 1000 / 1000 SIG BOLUS SHAOVNNE Rx#:[id number] Vancomycin Inj 1,000 MG In NS 250 / 250 250 / 250 Inj 250 ML @ 250 mls/hr IV.SIG Q24H SH[facility]NE Rx#:[id number] Oral 480 / 480 480 / 480 Other: # Voids 4 4 Date of Last Bowel Movement 01/20/18 01/20/18 # Bowel Movements 1 <Stephanie Calzada - 01/22/18 17:26> Vital Signs 01/21/18 10:14 01/21/18 12:00 01/21/18 16:00 Temperature 98.3 F 100.2 F H Pulse Rate 68 90 Respiratory Rate 20 18 Blood Pressure 146/70 H 149/83 H Pulse Oximetry 97 96 95 01/21/18 20:00 01/22/18 00:00 01/22/18 03:17 Temperature 100.1 F H 98.5 F Pulse Rate 83 83 Respiratory Rate 18 20 20 Blood Pressure 143/70 H 160/76 H Pulse Oximetry 90 L 91 L 01/22/18 04:00 01/22/18 06:52 Temperature 100.2 F H Pulse Rate 84 Respiratory Rate 20 20 Blood Pressure 166/77 H Pulse Oximetry 96 Intake & Output 01/21/18 01/22/18 01/22/18 18:59 06:59 18:59 Intake Total 1830 / 1830 820 / 820 Balance 1830 / 1830 820 / 820 Weight 69.1 kg Intake: IV 1350 / 1350 340 / 340 Novastan Inj 250 MG In NS Inj 240 / 240 247.5 ML @ Per Protocol IV.CONT TITRATE PRN Rx#:[id number] Maxipime Inj 2,000 MG In NS Inj 100 / 100 100 / 100 100 ML @ 200 mls/hr IV.SIG Q12H [facility] Rx#:[id number] NS Inj 1,000 ML @ Wide Open IV. 1000 / 1000 SIG BOLUS SHAVONNE Rx#:[id number] Vancomycin Inj 1,000 MG In NS 250 / 250 Inj 250 ML @ 250 mls/hr IV.SIG Q12H [facility] Rx#:[id number] Oral 480 / 480 480 / 480 Other: # Voids 4 4 Date of Last Bowel Movement 01/20/18 # Bowel Movements 1 <Richard Kuo - 01/22/18 09:03> Narrative: GENERAL: Thin appearing male lying in bed in no acute distress SKIN: Warm and dry. No rash. CARDIOVASCULAR: Regular rate and rhythm without obvious murmurs, gallops, or rubs. RESPIRATORY: Prolonged inspiratory and expiratory phase. Decreased breath sounds of the bilateral lower lobes without obvious CRW. No increased work of breathing at this time. Thoracotomy incision appears to be well-healing. GASTROINTESTINAL: Abdomen soft, non-tender, nondistended with positive bowel sounds. MUSCULOSKELETAL: No cyanosis or edema. Continued decreased sensation over left posterior calf, unchanged from previous exams. Mild tenderness to palpation of the bilateral calves stable from previous exams per patient. BACK: No spinal tenderness or paraspinal tenderness NEURO/PSYCH: Afocal. Awake, alert, and oriented x3. Normal speech and judgement. Normal sensation from knees up bilaterally. Nataly-anal with normal sensation. Decreased strength of left lower extremity. Decreased sensation of left calf and left lateral leg/foot. Negative Babinski reflex. <Richard Kuo Yesenia - 01/22/18 12:19> Assessment and Plan - Assessment (1) SIRS (systemic inflammatory response syndrome) Code(s): R65.10 - Systemic inflammatory response syndrome (SIRS) of non- infectious origin without acute organ dysfunction Status: Acute (2) EVON (acute kidney injury) Code(s): N17.9 - Acute kidney failure, unspecified Status: Acute (3) Pain in both lower legs Code(s): M79.661 - Pain in right lower leg; M79.662 - Pain in left lower leg Status: Acute (4) Heparin induced thrombocytopenia Code(s): D75.82 - Heparin induced thrombocytopenia (HIT) Status: Acute (5) Metastatic primary lung cancer Code(s): C34.90 - Malignant neoplasm of unspecified part of unspecified bronchus or lung Status: Acute (6) Thrombosis of right saphenous vein Code(s): I82.811 - Embolism and thrombosis of superficial veins of right lower extremity Status: Acute (7) Anemia Code(s): D64.9 - Anemia, unspecified Status: Acute (8) Atrial fibrillation Code(s): I48.91 - Unspecified atrial fibrillation Status: Acute (9) Nutrition, metabolism, and development symptoms Code(s): R63.8 - Other symptoms and signs concerning food and fluid intake Status: Acute <Stephanie Calzada - 01/22/18 17:26> (1) SIRS (systemic inflammatory response syndrome) Code(s): R65.10 - Systemic inflammatory response syndrome (SIRS) of non- infectious origin without acute organ dysfunction Status: Acute Plan: Patient currently meeting SIRS criteria with low grade temps & leukocytosis. No obvious source of infection, however inflammatory response could be related to malignancy vs thrombosis. CBC: Improving leukocytosis Chest x-ray (01/20): Stable from admission Urinalysis (01/20): Negative leukocyte esterase and nitrite, large occult blood, 100 protein, rare bacteria; otherwise negative Lactic acid 0.7; ESR 66 -Blood cultures 01/21/18: NGTD -Started on antibiotics -Vancomycin (01/21 - ) -Cefepime 2g q12H (01/21 - ) (2) EVON (acute kidney injury) Code(s): N17.9 - Acute kidney failure, unspecified Status: Acute Plan: Increasing serum creatinine during hospitalization. Admitted with Cr of 1.2. CMP from 06/28/17 with Cr of 0.95 Aortic CTA shows infarct of inferior pole of right kidney of unknown age. Possibly related to contrast administration during hospitalization s/p 1L bolus 01/21 -Monitor I/Os -Monitor BMP -Avoid nephrotoxic agents -Avoid further contrast studies if able -Renal consulted (3) Pain in both lower legs Code(s): M79.661 - Pain in right lower leg; M79.662 - Pain in left lower leg Status: Acute Plan: Patient presented after worsening pain and weakness in bilateral legs. Upon further discussion with patient, has signs and symptoms of peripheral arterial disease. Also with associated neuropathy and weakness upon admission. 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 -Changing Gabapentin to Lyrica -Recommend LP, holding due to thrombocytopenia -EMG -Vascular consulted-appreciate recs -Non-candidate for revascularization at this time due to thrombocytopenia as well as his metastatic disease -Does not think symptoms are vascular in origin -Heme/onc consulted -Treating HIT with argatroban -PT evaluating -recommend home health -Oxycodone and morphine PRN pain (4) Heparin induced thrombocytopenia Code(s): D75.82 - Heparin induced thrombocytopenia (HIT) Status: Acute Plan: Postop from lobectomy and s/p heparin 9 days on admission Heparin-induced thrombocytopenia antibody positive Platelets trending up No transfusion recommended at this time due to possibility of further coagulation Hold all heparin forms Heme/onc consulted-HIT with thrombosis -On argatroban gtt (5) Metastatic primary lung cancer Code(s): C34.90 - Malignant neoplasm of unspecified part of unspecified bronchus or lung Status: Acute Plan: Status post chemo in November, status post lobectomy Recent PET scans negative MRI spine shows possible mets Repeat brain MRI with no acute change -Management per oncology team; discussing case with patients Oncologist in [place] , Dr. Dillard -Regarding possible drop mets -Unsure of etiology at this time -Radiation oncology consulted -No therapy at this time due to low platelets (6) Thrombosis of right saphenous vein Code(s): I82.811 - Embolism and thrombosis of superficial veins of right lower extremity Status: Acute Plan: Lower extremity superficial vein, generally benign and self-limited however a larger vein is involved in this case Caution with propagation into the DVT system and PE possibility Likely due to abnormal coagulation at this time may repeat duplex ultrasound with further clinical signs Elevation Warm and cool compresses Compression stockings Pain management (7) Anemia Code(s): D64.9 - Anemia, unspecified Status: Acute Plan: No history of anemia per patient Likely chronic anemia, patient at high risk for bleeding due to thrombocytopenia Unsure of the exact cause, chemotherapy vs recent surgery vs chronic anemia (8) Atrial fibrillation Code(s): I48.91 - Unspecified atrial fibrillation Status: Acute Plan: History of Afib. Controlled rate Echo shows EF of 50-55% Segmental wall motion abnormalities with hypokinesis If no signs of Afib, will d/c telemetry Continue metoprolol Watch for arrhythmias (9) Nutrition, metabolism, and development symptoms Code(s): R63.8 - Other symptoms and signs concerning food and fluid intake Status: Acute Plan: Fluids: Tolerating PO Electrolytes: Follow-up BMP and replete as needed Nutrition: Regular diet DVT prophylaxis: Holding all heparin products, argatroban gtt Incentive spirometry <Richard Kuo - 01/22/18 12:16> - Assessment and Plan 62 y/o male with history of lung cancer with mets to brain, hypertension, atrial fibrillation presented on admission with bilateral leg pain/weakness. Admitted for workup. 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 Leg pain being worked up with etiology of vascular vs neurologic vs infectious vs other. Currently on argatroban gtt and working up leg pain further with pain management. <Richard Kuo - 01/22/18 09:03> Discharge Planning: Pending improvement of platelets and workup of leg pain. PT recommends home health upon discharge <Richard Kuo - 01/22/18 09:03> Attestation Attestation: The exam, history, and the medical decision-making described in the above note were completed with the assistance of the resident physician. I reviewed and agree with the findings presented. I attest that I had a [id number] encounter with the patient on the same day, and personally performed the exam along with the Dr Kuo. Reviewed Adv Directives with pt and , she is HCS, pt desires ongoing full code status. Case d/w Neurology, Dr Krishnan. <ZhengStephanie - 01/22/18 17:26> <Richard Kuo - Last Filed: 01/22/18 12:16> (7) Anemia Qualifiers: Anemia type: bone marrow failure Bone marrow failure anemia type: pancytopenia, antineoplastic chemotherapy-induced Qualified Code(s): D61.810 - Antineoplastic chemotherapy induced pancytopenia; T45.1X5A - Adverse effect of antineoplastic and immunosuppressive drugs, initial encounter <Stephanie Calzada - Last Filed: 01/22/18 17:26> (7) Anemia Qualifiers: Qualified Code(s): D61.810 - Antineoplastic chemotherapy induced pancytopenia ; T45.1X5A - Adverse effect of antineoplastic and immunosuppressive drugs, initial encounter <Richard Kuo - Last Filed: 01/22/18 12:16> (7) Anemia Qualifiers: Anemia type: bone marrow failure Bone marrow failure anemia type: pancytopenia, antineoplastic chemotherapy-induced Qualified Code(s): D61.810 - Antineoplastic chemotherapy induced pancytopenia; T45.1X5A - Adverse effect of antineoplastic and immunosuppressive drugs, initial encounter <Stephanie Calzada - Last Filed: 01/22/18 17:26> (7) Anemia Qualifiers: Qualified Code(s): D61.810 - Antineoplastic chemotherapy induced pancytopenia ; T45.1X5A - Adverse effect of antineoplastic and immunosuppressive drugs, initial encounter
--- NOTE | 2018-01-22 09:28 | P.PNNEU ---
Subjective Subjective Comments: still intermittent severe pain in legs Active Medications: Active Medications Acetaminophen (Tylenol) 650 mg PO Q6H PRN PRN Reason: FEVER > 100.4 F Al Hydroxide/Mg Hydroxide (Milk Of Magnesia Liq) 30 ml PO Q12H PRN PRN Reason: Mild Constipation Bisacodyl (Dulcolax Supp) 10 mg RECTAL DAILY PRN PRN Reason: SEVERE CONSITIPATION Budesonide/Formoterol Fumarate (Symbicort 160/4.5 Mcg Inh) 2 puff INH BID [facility] Last Admin: 01/21/18 20:21 Dose: 2 puff Clonidine HCl (Catapres) 0.1 mg PO Q6H PRN PRN Reason: SEE LABEL COMMENTS Folic Acid (Folic Acid) 1 mg PO DAILY [facility] Last Admin: 01/21/18 08:48 Dose: 1 mg Gabapentin (Neurontin) 600 mg PO DAILY [facility] Last Admin: 01/21/18 08:48 Dose: 600 mg Argatroban 250 mg/ Sodium (Chloride) 250 mls @ 0 mls/hr IV.CONT TITRATE PRN; Protocol PRN Reason: Per Protocol Last Titration: 01/22/18 06:15 Dose: 2 mcg/kg/min, 8.29 mls/hr Sodium Chloride (Ns Inj) 1,000 mls @ 0 mls/hr IV.SIG BOLUS [facility] Last Infusion: 01/21/18 18:07 Dose: Infused Cefepime HCl 2,000 mg/ Sodium (Chloride) 100 mls @ 200 mls/hr IV.SIG Q12H [facility] Last Infusion: 01/22/18 03:17 Dose: Infused Vancomycin HCl 1,000 mg/ (Sodium Chloride) 250 mls @ 250 mls/hr IV.SIG Q24H [facility] Lactulose (Lactulose Liq) 30 ml PO DAILY PRN PRN Reason: SEVERE CONSITIPATION Metoprolol Tartrate (Lopressor) 25 mg PO BID [facility] Last Admin: 01/21/18 20:20 Dose: 25 mg Miscellaneous Information ([facility] Ordered Lab Info) 0 each OTHER ONCE ONE Stop: 01/24/18 12:46 Morphine Sulfate (Morphine Inj) 4 mg IV.PUSH Q3H PRN PRN Reason: BREAKTHROUGH PAIN Last Admin: 01/22/18 06:50 Dose: 4 mg Naloxone HCl (Narcan Inj) 0.4 mg IV.PUSH UNSCH PRN PRN Reason: SEE LABEL COMMENTS Oxycodone HCl (Roxicodone) 10 mg PO Q4H PRN PRN Reason: PAIN SCALE 6 TO 10 Last Admin: 01/22/18 02:47 Dose: 10 mg Pantoprazole Sodium (Protonix) 40 mg PO DAILY [facility] Last Admin: 01/21/18 08:48 Dose: 40 mg Pharmacy Profile Note (Vancomycin Consult Pharmacy) 1 each OTHER UNSCH PRN PRN Reason: Pharmacy to dose Sennosides (Senokot) 17.2 mg PO Q12H PRN PRN Reason: Moderate Constipation Last Admin: 01/21/18 22:30 Dose: 17.2 mg Sodium Chloride (Ns Flush) 2 ml IV.FLUSH PRN PRN PRN Reason: FLUSH AFTER USING IV ACCESS Last Admin: 01/20/18 20:43 Dose: 2 ml Temazepam (Restoril) 15 mg PO HS PRN PRN Reason: INSOMNIA Last Admin: 01/21/18 22:30 Dose: 15 mg Allergies/Adverse Reactions: Allergies Allergy/AdvReac Type Severity Reaction Status Date / Time No Known Allergies Allergy Unverified 01/17/18 11:06 Physical Exam Vital signs: Vital Signs 01/21/18 10:14 01/21/18 12:00 01/21/18 16:00 Temperature 98.3 F 100.2 F H Pulse Rate 68 90 Respiratory Rate 20 18 Blood Pressure 146/70 H 149/83 H Pulse Oximetry 97 96 95 01/21/18 20:00 01/22/18 00:00 01/22/18 03:17 Temperature 100.1 F H 98.5 F Pulse Rate 83 83 Respiratory Rate 18 20 20 Blood Pressure 143/70 H 160/76 H Pulse Oximetry 90 L 91 L 01/22/18 04:00 01/22/18 06:52 Temperature 100.2 F H Pulse Rate 84 Respiratory Rate 20 20 Blood Pressure 166/77 H Pulse Oximetry 96 Intake & Output 01/21/18 01/22/18 01/22/18 18:59 06:59 18:59 Intake Total 1830 / 1830 820 / 820 Balance 1830 / 1830 820 / 820 Weight 69.1 kg Intake: IV 1350 / 1350 340 / 340 Novastan Inj 250 MG In NS Inj 240 / 240 247.5 ML @ Per Protocol IV.CONT TITRATE PRN Rx#:[id number] Maxipime Inj 2,000 MG In NS Inj 100 / 100 100 / 100 100 ML @ 200 mls/hr IV.SIG Q12H SH[facility]NE Rx#:[id number] NS Inj 1,000 ML @ Wide Open IV. 1000 / 1000 SIG BOLUS SHAVONNE Rx#:[id number] Vancomycin Inj 1,000 MG In NS 250 / 250 Inj 250 ML @ 250 mls/hr IV.SIG Q12H [facility]NE Rx#:[id number] Oral 480 / 480 480 / 480 Other: # Voids 4 4 Date of Last Bowel Movement 01/20/18 # Bowel Movements 1 Narrative: ble 5/5 x left ta and foot eversion weak Objective Laboratory Results - last 24 hr 01/21/18 01/21/18 01/21/18 08:40 10:25 10:25 WBC RBC Hgb Hct MCV MCH MCHC RDW Plt Count MPV Prelim Diff (Auto) Neut % (Auto) Lymph % (Auto) Gentry % (Auto) Eos % (Auto) Baso % (Auto) Neut # (Auto) Lymph # (Auto) Gentry # (Auto) Eos # (Auto) Baso # (Auto) Differential Comment ESR 66 H APTT 72.4 H Sodium Potassium Chloride Carbon Dioxide Anion Gap BUN Creatinine Estimated GFR Random Glucose Lactic Acid 0.7 Calcium Total Bilirubin AST ALT Alkaline Phosphatase Total Protein Albumin 01/22/18 01/22/18 01/22/18 07:11 07:11 07:11 WBC 11.8 H RBC 2.84 L Hgb 8.9 L Hct 26.2 L MCV 92.2 MCH 31.2 MCHC 33.9 RDW 16.5 Plt Count 34 L MPV 9.2 Prelim Diff (Auto) Slide review pending Neut % (Auto) 72.3 H Lymph % (Auto) 8.8 L Gentry % (Auto) 14.0 H Eos % (Auto) 4.2 H Baso % (Auto) 0.7 Neut # (Auto) 8.5 H Lymph # (Auto) 1.0 Gentry # (Auto) 1.6 H Eos # (Auto) 0.5 H Baso # (Auto) 0.1 Differential Comment . ESR APTT 73.7 H Sodium 136 Potassium 4.0 Chloride 103 Carbon Dioxide 21.6 Anion Gap 11 BUN 23 H Creatinine 1.80 H Estimated GFR 38 L Random Glucose 102 Lactic Acid Calcium 8.4 L Total Bilirubin 0.8 AST 57 H ALT 37 Alkaline Phosphatase 70 Total Protein 6.4 Albumin 2.4 L Review/Management - Review/Management Plan: D/W DR LING TRIAL OF DDECADRON 4MG QID MRI RPT NOT YET DONE PT EVAL cta showed some blockages but does have flow in ble arterial dr hannah not convinced the thoracic abn is met could be vascular? i dw neurorad check cpk labs hit rx per dr pablo hernandez recently fu echo some infarct in kidney ? 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 will have to repeat mri t spine concerned with new weak left ankle 01/22/18 mri t spine no change looks more peripheral and not in cord neurorads did not think this was a cord avm vascular feels sx not from aortic dz with the left foot drop need emg and worry about carcinomatous meningits needs LP when able i will dw heme about plts try lyrica and neurontin not helping
[2018-01-22] MEDS: Metoprolol Tartrate 25 MG Tablet PO SCH ×2 (09:30→21:35)
[2018-01-22] MEDS: Argatroban Inj 250 MG in Sodium Chlor 0.9% Inj 247.5 ML IV.CONT PRN (09:31)
[2018-01-22] MEDS: Gabapentin 300 MG Capsule PO SCH (09:35)
[2018-01-22] MEDS: Acetaminophen 325 MG Tablet PO PRN ×2 (09:39→23:55)
[2018-01-22] MEDS: Folic Acid 1 MG Tablet PO SCH (09:45)
[2018-01-22] MEDS: Budesonide-Formoterol 160/4.5 MCG 6 GM Inhaler INH SCH ×2 (09:46→21:36)
[2018-01-22 09:59] LABS: Platelet Morphology Normal (Normal); RBC Morphology Normal (Normal)
[2018-01-22] MEDS: Pregabalin 75 MG Capsule PO SCH ×2 (12:27→21:35)
[2018-01-22] MEDS: Vancomycin Inj 1,000 MG in Sodium Chlor 0.9% Inj 250 ML IV.SIG SCH (12:36)
--- NOTE | 2018-01-22 13:27 | P.CONNP ---
History of Present Illness Reason for Consult: Acute renal insufficiency. Primary Care Provider: Crescencio Kelly MD Family Provider: Crescencio Kelly MD Chief Complaint: Intermittent pain of the lower extremities History of Present Illness: This patient is a 62-year-old male with a complicated medical history. 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 Subsequently went to the [facility] for further treatment which confirmed presence of a 7.4 cm left upper lobe lung mass. Underwent resection of brain mass June 2017 and subsequently started on chemotherapy which included keytrude and Platinol both apparently can be associated with renal insufficiency with patient is unaware of this occurring by history. Last cycle of chemotherapy said to be November 20, 2017. He underwent a thoracotomy January 01, 2018 with wedge resection left upper lobe. Hospital course said to have gone well at the [facility]. Subsequently was discharged but presented to this institution with severe right leg pain. CTA was performed at this institution January 17, 2018 which revealed infarction of the inferior pole of the right kidney of unknown age. Also severe chronic infrarenal atherosclerotic disease causing severe narrowing of the distal aorta and proximal inflow vessels. Patient's creatinine level at the time of presentation 1.2 no previous levels available to me. Creatinine level has been rising subsequently to 1.8 today. 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 Review of Systems All other systems reviewed negative except as stated in HPI PMFSH - History History Provided By: Patient - Medical History Medical History: Medical History (Last Reviewed 01/22/18 @ 07:54 by [facility] [employer]) Brain tumor FHx: chemotherapy Lung cancer Primary cancer of left lower lobe of lung - Surgical History Surgical History: Surgical History (Last Reviewed 01/22/18 @ 07:54 by [facility]) History of tympanoplasty - Family History Family History: Family History (Last Reviewed 01/17/18 @ 19:36 by Antwon Blanton MD) Other Cancer - Tobacco History Second Hand Smoke Exposure: No Tobacco Use In Past 30 Days: No Smoking Status: Former smoker Tobacco Type: Cigarettes Packs Per Day: 2 Years Smoked: 45 Smoking End Date: 08/07/17 - Alcohol History How Often Do You Have a Drink Containing Alcohol: 2 to 3 times a week - Substance Use History Substance History: No History of Abuse - Travel History History of Recent Travel: No Recent Travel in the [place] Within the Last 8 Weeks: No Recent Travel Out of the Country Within the Last 8 Weeks: No - Immunization History Tetanus Immunization: Unsure Hx Influenza Vaccine This Season: No Medications and Allergies Active Medications: Active Medications Acetaminophen (Tylenol) 650 mg PO Q6H PRN PRN Reason: FEVER > 100.4 F Last Admin: 01/22/18 09:39 Dose: 650 mg Al Hydroxide/Mg Hydroxide (Milk Of Magnesia Liq) 30 ml PO Q12H PRN PRN Reason: Mild Constipation Bisacodyl (Dulcolax Supp) 10 mg RECTAL DAILY PRN PRN Reason: SEVERE CONSITIPATION Budesonide/Formoterol Fumarate (Symbicort 160/4.5 Mcg Inh) 2 puff INH BID [facility] Last Admin: 01/22/18 09:46 Dose: 2 puff Clonidine HCl (Catapres) 0.1 mg PO Q6H PRN PRN Reason: SEE LABEL COMMENTS Last Admin: 01/22/18 09:45 Dose: 0.1 mg Folic Acid (Folic Acid) 1 mg PO DAILY [facility] Last Admin: 01/22/18 09:45 Dose: 1 mg Argatroban 250 mg/ Sodium (Chloride) 250 mls @ 0 mls/hr IV.CONT TITRATE PRN; Protocol PRN Reason: Per Protocol Last Admin: 01/22/18 09:31 Dose: 2 mcg/kg/min, 8.29 mls/hr Sodium Chloride (Ns Inj) 1,000 mls @ 0 mls/hr IV.SIG BOLUS [facility] Last Infusion: 01/21/18 18:07 Dose: Infused Cefepime HCl 2,000 mg/ Sodium (Chloride) 100 mls @ 200 mls/hr IV.SIG Q12H [facility] Last Infusion: 01/22/18 03:17 Dose: Infused Vancomycin HCl 1,000 mg/ (Sodium Chloride) 250 mls @ 250 mls/hr IV.SIG Q24H [facility] Last Admin: 01/22/18 12:36 Dose: 250 mls/hr Dextrose/Sodium Chloride (D5w/1/2 Ns Inj) 1,000 mls @ 80 mls/hr IV.CONT .[id number] [facility] Lactulose (Lactulose Liq) 30 ml PO DAILY PRN PRN Reason: SEVERE CONSITIPATION Metoprolol Tartrate (Lopressor) 25 mg PO BID [facility] Last Admin: 01/22/18 09:30 Dose: 25 mg Miscellaneous Information ([facility] Ordered Lab Info) 0 each OTHER ONCE ONE Stop: 01/24/18 12:46 Morphine Sulfate (Morphine Inj) 4 mg IV.PUSH Q3H PRN PRN Reason: BREAKTHROUGH PAIN Last Admin: 01/22/18 06:50 Dose: 4 mg Naloxone HCl (Narcan Inj) 0.4 mg IV.PUSH UNSCH PRN PRN Reason: SEE LABEL COMMENTS Oxycodone HCl (Roxicodone) 10 mg PO Q4H PRN PRN Reason: PAIN SCALE 6 TO 10 Last Admin: 01/22/18 09:28 Dose: 10 mg Pantoprazole Sodium (Protonix) 40 mg PO DAILY [facility] Last Admin: 01/22/18 09:30 Dose: 40 mg Pharmacy Profile Note (Vancomycin Consult Pharmacy) 1 each OTHER UNSCH PRN PRN Reason: Pharmacy to dose Pregabalin (Lyrica) 75 mg PO BID [facility] Last Admin: 01/22/18 12:27 Dose: 75 mg Sennosides (Senokot) 17.2 mg PO Q12H PRN PRN Reason: Moderate Constipation Last Admin: 01/21/18 22:30 Dose: 17.2 mg Sodium Chloride (Ns Flush) 2 ml IV.FLUSH PRN PRN PRN Reason: FLUSH AFTER USING IV ACCESS Last Admin: 01/20/18 20:43 Dose: 2 ml Temazepam (Restoril) 15 mg PO HS PRN PRN Reason: INSOMNIA Last Admin: 01/21/18 22:30 Dose: 15 mg Allergies Allergy/AdvReac Type Severity Reaction Status Date / Time No Known Allergies Allergy Unverified 01/17/18 11:06 Home Medications Medication Instructions Recorded Confirmed Type acetaminophen 500 mg PO Q8HR 01/17/18 01/17/18 History budesonide-formoterol [Symbicort] 2 puff INHALATION BID 01/17/18 01/17/18 History folic acid 1 mg PO DAILY 01/17/18 01/17/18 History gabapentin 100 mg PO DAILY 01/17/18 01/17/18 History ibuprofen [Motrin IB] 800 mg PO TID 01/17/18 01/17/18 History [id number] 1 cap PO DAILY 01/17/18 01/17/18 History [krill oil] metoprolol tartrate 25 mg PO BID 01/17/18 01/17/18 History multivitamin 1 tab PO DAILY 01/17/18 01/17/18 History omeprazole 40 mg PO DAILY 01/17/18 01/17/18 History oxycodone 10 mg PO Q4-6H 01/17/18 01/17/18 History tramadol 50 mg PO Q6H 01/17/18 01/17/18 History Exam Vital signs: Vital Signs 01/21/18 16:00 01/21/18 20:00 01/22/18 00:00 Temperature 100.2 F H 100.1 F H 98.5 F Pulse Rate 90 83 83 Respiratory Rate 18 18 20 Blood Pressure 149/83 H 143/70 H 160/76 H Pulse Oximetry 95 90 L 91 L 01/22/18 03:17 01/22/18 04:00 01/22/18 06:52 Temperature 100.2 F H Pulse Rate 84 Respiratory Rate 20 20 20 Blood Pressure 166/77 H Pulse Oximetry 96 01/22/18 08:00 01/22/18 10:00 01/22/18 10:48 Temperature 100.7 F H Pulse Rate 85 70 Respiratory Rate 18 Blood Pressure 181/82 H 125/60 Pulse Oximetry 93 L 96 Intake & Output 01/21/18 01/22/18 01/22/18 18:59 06:59 18:59 Intake Total 1830 / 1830 820 / 820 176.4 / 176.4 Balance 1830 / 1830 820 / 820 176.4 / 176.4 Weight 69.1 kg Intake: IV 1350 / 1350 340 / 340 176.4 / 176.4 Novastan Inj 250 MG In NS Inj 240 / 240 176.4 / 176.4 247.5 ML @ Per Protocol IV.CONT TITRATE PRN Rx#:[id number] Maxipime Inj 2,000 MG In NS Inj 100 / 100 100 / 100 100 ML @ 200 mls/hr IV.SIG Q12H [facility] Rx#:[id number] NS Inj 1,000 ML @ Wide Open IV. 1000 / 1000 SIG BOLUS [facility] Rx#:[id number] Vancomycin Inj 1,000 MG In NS 250 / 250 Inj 250 ML @ 250 mls/hr IV.SIG Q12H [facility] Rx#:[id number] Oral 480 / 480 480 / 480 Other: # Voids 4 4 Date of Last Bowel Movement 01/20/18 # Bowel Movements 1 Narrative: GENERAL: Patient appears to be somewhat thin with wasting of the musculature of all limbs. SKIN: Warm and dry. Skin turgor diminished. HEAD: Atraumatic. Normocephalic. EYES: Pupils equal and round. No scleral icterus. No injection or drainage. ENT: No nasal bleeding or discharge. Mucous membranes pink but dry. NECK: Trachea midline. No JVD. CARDIOVASCULAR: Regular rate and rhythm. RESPIRATORY: No accessory muscle use. Clear to auscultation. Breath sounds equal bilaterally. GASTROINTESTINAL: Abdomen soft, non-tender, nondistended. Hepatic and splenic margins not palpable. MUSCULOSKELETAL: Extremities without clubbing, cyanosis, or edema. No obvious deformities. NEUROLOGICAL: Awake and alert. Normal speech. PSYCHIATRIC: Appropriate mood and affect; . Results - Lab Results 01/22/18 07:11 01/22/18 07:11 Most recent lab results Calcium 8.4 mg/dL (8.5-10.1) L 01/22/18 07:11 Assessment and Plan - Assessment (1) EVON (acute kidney injury) Code(s): N17.9 - Acute kidney failure, unspecified Status: Acute Plan: Patient likely has developed some degree of contrast nephrotoxicity post CTA. Patient also has evidence of renal infarct involving the lower pole of the right kidney. Unfortunately cannot be certain as to the timing of the event. 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 Also mention of atrial fibrillation and a history. In addition the patient does appear to be moderately volume depleted i.e. dehydrated. Check serum complements as well as urine for eosinophils which can be abnormal in the setting of an acute renal infarction. Regardless however no new recommendations as far as management are concerned as the patient already has an established renal infarct and is already on anticoagulation therapy for heparin-induced thrombocytopenia. IV hydration as ordered. Hopefully the patient's creatinine level will plateau and subsequently improved. As mentioned above the patient did receive chemotherapy at [facility] which potentially could have inflicted some degree of pre-existing renal insufficiency but there is no history of same and those records are not available to me. His creatinine level was also only 1.2 at time of presentation. Medications should be adjusted for the patient's estimated GFR if clinically indicated. Avoid agents with significant potential for nephrotoxicity possible including NSAIDs for analgesia, iodine contrast agents. Gadolinium is contraindicated if the GFR is below 30. (2) Renal infarction Code(s): N28.0 - Ischemia and infarction of kidney Status: Acute Plan: Risk factors as described above for renal infarction. Timing of infarction uncertain and it may have been subacute or chronic in nature. Patient already on anticoagulation. No new recommendations from my point of view in regard to management of same. - Attending Attestation All of the above discussed with the patient in detail with counseling. Questions answered to his satisfaction.
--- NOTE | 2018-01-22 13:50 | P.PNONC ---
Subjective Interval history: T-max 100.7F. Patient lying in bed, with no complaints at this time. He states he has started feeling much better in the last 2 hours. He denies any bleeding at this time. No complaints of pain. Reports the left leg tingling is intermittent in nature. Objective Vital Signs/Intake & Output: Vital Signs 01/21/18 16:00 01/21/18 20:00 01/22/18 00:00 Temperature 100.2 F H 100.1 F H 98.5 F Pulse Rate 90 83 83 Respiratory Rate 18 18 20 Blood Pressure 149/83 H 143/70 H 160/76 H Pulse Oximetry 95 90 L 91 L 01/22/18 03:17 01/22/18 04:00 01/22/18 06:52 Temperature 100.2 F H Pulse Rate 84 Respiratory Rate 20 20 20 Blood Pressure 166/77 H Pulse Oximetry 96 01/22/18 08:00 01/22/18 10:00 01/22/18 10:48 Temperature 100.7 F H Pulse Rate 85 70 Respiratory Rate 18 Blood Pressure 181/82 H 125/60 Pulse Oximetry 93 L 96 Intake & Output 01/21/18 01/22/18 01/22/18 18:59 06:59 18:59 Intake Total 1830 / 1830 820 / 820 176.4 / 176.4 Balance 1830 / 1830 820 / 820 176.4 / 176.4 Weight 69.1 kg Intake: IV 1350 / 1350 340 / 340 176.4 / 176.4 Novastan Inj 250 MG In NS Inj 240 / 240 176.4 / 176.4 247.5 ML @ Per Protocol IV.CONT TITRATE PRN Rx#:[id number] Maxipime Inj 2,000 MG In NS Inj 100 / 100 100 / 100 100 ML @ 200 mls/hr IV.SIG Q12H [facility] Rx#:[id number] NS Inj 1,000 ML @ Wide Open IV. 1000 / 1000 SIG BOLUS [facility] Rx#:[id number] Vancomycin Inj 1,000 MG In NS 250 / 250 Inj 250 ML @ 250 mls/hr IV.SIG Q12H [facility] Rx#:[id number] Oral 480 / 480 480 / 480 Other: # Voids 4 4 Date of Last Bowel Movement 01/20/18 01/20/18 # Bowel Movements 1 Result Diagrams: 01/22/18 07:11 01/22/18 07:11 Laboratory Results: Laboratory Results - last 24 hr 01/22/18 01/22/18 01/22/18 07:11 07:11 07:11 WBC 11.8 H RBC 2.84 L Hgb 8.9 L Hct 26.2 L MCV 92.2 MCH 31.2 MCHC 33.9 RDW 16.5 Plt Count 34 L MPV 9.2 Prelim Diff (Auto) Slide review pending Neut % (Auto) 72.3 H Lymph % (Auto) 8.8 L [place] % (Auto) 14.0 H Eos % (Auto) 4.2 H Baso % (Auto) 0.7 Neut # (Auto) 8.5 H Lymph # (Auto) 1.0 [place] # (Auto) 1.6 H Eos # (Auto) 0.5 H Baso # (Auto) 0.1 WBC Differential . Diff Scan Auto diff confirmed Differential Comment . Platelet Estimate Low L Platelet Morphology Normal RBC Morphology Normal APTT 73.7 H Sodium 136 Potassium 4.0 Chloride 103 Carbon Dioxide 21.6 Anion Gap 11 BUN 23 H Creatinine 1.80 H Estimated GFR 38 L Random Glucose 102 Calcium 8.4 L Total Bilirubin 0.8 AST 57 H ALT 37 Alkaline Phosphatase 70 Total Protein 6.4 Albumin 2.4 L Culture Results: Microbiology 01/21/18 10:25 Aerobic Blood Culture - Preliminary Blood - Peripheral No growth in 1 day Anaerobic Blood Culture - Preliminary No growth in 1 day 01/21/18 10:14 Aerobic Blood Culture - Preliminary Blood - Peripheral No growth in 1 day Anaerobic Blood Culture - Preliminary No growth in 1 day Medications: Active Medications Generic Name Dose Route Start Last Admin Trade Name Freq PRN Reason Stop Dose Admin Acetaminophen 650 mg 01/21/18 12:11 01/22/18 09:39 Tylenol PO 650 mg Q6H PRN Administration FEVER > 100.4 F Budesonide/Formoterol Fumarate 2 puff 01/17/18 14:00 01/22/18 09:46 Symbicort 160/4.5 Mcg Inh INH 2 puff BID [facility] Administration Clonidine HCl 0.1 mg 01/18/18 08:33 01/22/18 09:45 Catapres PO 0.1 mg Q6H PRN Administration SEE LABEL COMMENTS Folic Acid 1 mg 01/17/18 13:45 01/22/18 09:45 Folic Acid PO 1 mg DAILY [facility] Administration Argatroban 250 mg/ Sodium 250 mls @ 0 mls/hr 01/18/18 15:00 01/22/18 09:31 Chloride IV.CONT 2 mcg/kg/min TITRATE PRN 8.29 mls/hr Per Protocol Administration Protocol Per Protocol Sodium Chloride 1,000 mls @ 0 mls/hr 01/21/18 09:15 01/21/18 18:07 Ns Inj IV.SIG Infused BOLUS [facility] Infusion Wide Open Cefepime HCl 2,000 mg/ Sodium 100 mls @ 200 mls/hr 01/21/18 14:00 01/22/18 03 :17 Chloride IV.SIG Infused Q12H [facility] Infusion Vancomycin HCl 1,000 mg/ 250 mls @ 250 mls/hr 01/22/18 13:00 01/22/18 12:36 Sodium Chloride IV.SIG 250 mls/hr Q24H [facility] Administration Metoprolol Tartrate 25 mg 01/17/18 13:45 01/22/18 09:30 Lopressor PO 25 mg BID [facility] Administration Morphine Sulfate 4 mg 01/18/18 02:56 01/22/18 06:50 Morphine Inj IV.PUSH 4 mg Q3H PRN Administration BREAKTHROUGH PAIN Oxycodone HCl 10 mg 01/18/18 02:56 01/22/18 09:28 Roxicodone PO 10 mg Q4H PRN Administration PAIN SCALE 6 TO 10 Pantoprazole Sodium 40 mg 01/17/18 14:00 01/22/18 09:30 Protonix PO 40 mg DAILY [facility] Administration Pregabalin 75 mg 01/22/18 09:30 01/22/18 12:27 Lyrica PO 75 mg BID [facility] Administration Sennosides 17.2 mg 01/17/18 14:08 01/21/18 22:30 Senokot PO 17.2 mg Q12H PRN Administration Moderate Constipation Sodium Chloride 2 ml 01/17/18 11:17 01/20/18 20:43 Ns Flush IV.FLUSH 2 ml PRN PRN Administration FLUSH AFTER USING IV ACCESS Temazepam 15 mg 01/17/18 21:00 01/21/18 22:30 Restoril PO 15 mg HS PRN Administration INSOMNIA Objective Remarks: GENERAL: Middle-aged male patient, lying in bed, in no acute distress. SKIN: Warm and dry. HEAD: Normocephalic. EYES: No scleral icterus. No injection or drainage. NECK: Supple, trachea midline. CARDIOVASCULAR: Regular rate and rhythm without murmurs. RESPIRATORY: Anterior breath sounds clear, non-labored. GASTROINTESTINAL: Abdomen soft, non-tender, nondistended. EXTREMITIES: No cyanosis, or edema. MUSCULOSKELETAL: Adequate muscle tone. NEUROLOGICAL: No obvious focal deficit. Awake, alert, and oriented x3. PSYCHIATRIC: Appropriate mood and affect; insight and judgment normal. 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 Bernstein is a pleasant 62-year-old gentleman with a history of non-small cell lung cancer with brain metastasis, status post craniotomy with resection followed by stereotactic radiosurgery with gamma knife, 3-4 cycles of preop Immunochemotherapy with 2 doses of Platinol and Alimta he also underwent thoracotomy and resection of the left upper lobe and wedge resection of the left lower lobe on 01/01/2018. Patient had minimal residual disease of 0.6 cm and also the lymph nodes were negative. Margins were also negative. During this admission the patient was found to have severe thrombocytopenia. Patient did have recent exposure to subcutaneous heparin after his recent surgery. Plan: 1. Non-small cell lung cancer with brain metastasis, status post above treatments. MR thoracic spine on 01/17/2018 showed some small enhancing nodules identified along the surface of the spinal cord in the lower thoracic spine dural extra medullary lesions and drop metastasis. Neurosurgery following, they report the thoracic abnormality could also be vascular vs. mets. Repeat thoracic MR on 01/20/2018, concluded, stable exam with abnormal left hemithorax. Very slight enhancement seen along the lower thoracic spinal cord on the right , may be related to nerve root enhancement or drop metastasis. Is not well evaluated on this study. 2. 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 Platelets increasing, at 34,000 today. Continue on argatroban. CHAI pending. Avoid heparin exposure. Monitor for bleeding. No transfusions warranted at this time. 3. Thrombosis of right saphenous vein. On argatroban drip for thrombocytopenia. 4. Left lower extremity with intermittent tingling, neurology following. They recommend LP to r/o carcinomatous meningitis, once platelets have improved. 5. Fevers, of unknown origin. Chest x-ray on 01/20/2018 with stable. Blood cultures no growth x's one day. Continue vancomycin and cefepime. Stop scheduled Tylenol for pain, as this could be masking fevers. Avoid NSAIDs with low platelet count. Patient has oxycodone and morphine ordered for breakthrough pain. - Attending Statement The exam, history, and the medical decision-making described in the above note were completed with the assistance of the mid-level provider. I reviewed and agree with the findings presented. I attest that I had a [id number] encounter with the patient on the same day, and personally performed and documented my assessment and findings in the medical record. Patient Is complaining of more pain and difficulty Walking on Left leg. He feels Left leg is more numb than the Right He does not have anymore fevers He denies any back pain He denies any shortness of breath Platelets are still low , Slowly improving,Continue Argatroban. Left leg is cold and pale compare to right. I have called Ultrasound department for arterial Doppler.This is not available anymore per Tech Call placed to radiologist Dr. Veras to discuss. Reconsult vascular surgery to evaluate for thrombosis/emboli Left lower leg vs PAD Consider Consult to Interventional Radiology
[2018-01-22] MEDS: Dextrose 5%/NaCl 0.45% Inj 1,000 ML IV.CONT SCH (14:31)
[2018-01-22] MEDS: Temazepam 15 MG Capsule PO PRN (21:35)
[2018-01-22 23:52] LABS: SSA High Dose 100 IU/mL 0 (2.1-21.7); SSA Low Dose 0.1IU/mL 49 (2.1-21.7); SSA Low Dose 0.5 IU/mL 60 (2.1-21.7); Serotonin Release Result POSITIVE (NEGATIVE)
[2018-01-23] MEDS: Dextrose 5%/NaCl 0.45% Inj 1,000 ML IV.CONT SCH ×3 (02:41→18:14)
--- NOTE | 2018-01-23 07:35 | P.PNNEU ---
Subjective Active Medications: Active Medications Acetaminophen (Tylenol) 650 mg PO Q6H PRN PRN Reason: FEVER > 100.4 F Last Admin: 01/22/18 23:55 Dose: 650 mg Al Hydroxide/Mg Hydroxide (Milk Of Magnesia Liq) 30 ml PO Q12H PRN PRN Reason: Mild Constipation Bisacodyl (Dulcolax Supp) 10 mg RECTAL DAILY PRN PRN Reason: SEVERE CONSITIPATION Budesonide/Formoterol Fumarate (Symbicort 160/4.5 Mcg Inh) 2 puff INH BID [facility] Last Admin: 01/22/18 21:36 Dose: 2 puff Clonidine HCl (Catapres) 0.1 mg PO Q6H PRN PRN Reason: SEE LABEL COMMENTS Last Admin: 01/22/18 09:45 Dose: 0.1 mg Dexamethasone Sodium Phosphate (Decadron Inj) 10 mg IV.PUSH ONCE ONE Stop: 01/23/18 07:34 Folic Acid (Folic Acid) 1 mg PO DAILY [facility] Last Admin: 01/22/18 09:45 Dose: 1 mg Argatroban 250 mg/ Sodium (Chloride) 250 mls @ 0 mls/hr IV.CONT TITRATE PRN; Protocol PRN Reason: Per Protocol Last Admin: 01/22/18 09:31 Dose: 2 mcg/kg/min, 8.29 mls/hr Sodium Chloride (Ns Inj) 1,000 mls @ 0 mls/hr IV.SIG BOLUS [facility] Last Infusion: 01/21/18 18:07 Dose: Infused Cefepime HCl 2,000 mg/ Sodium (Chloride) 100 mls @ 200 mls/hr IV.SIG Q12H [facility] Last Infusion: 01/23/18 02:40 Dose: Infused Vancomycin HCl 1,000 mg/ (Sodium Chloride) 250 mls @ 250 mls/hr IV.SIG Q24H [facility] Last Infusion: 01/22/18 13:35 Dose: Infused Dextrose/Sodium Chloride (D5w/1/2 Ns Inj) 1,000 mls @ 80 mls/hr IV.CONT .[id number] [facility] Last Admin: 01/23/18 02:41 Dose: 80 mls/hr Lactulose (Lactulose Liq) 30 ml PO DAILY PRN PRN Reason: SEVERE CONSITIPATION Metoprolol Tartrate (Lopressor) 25 mg PO BID [facility] Last Admin: 01/22/18 21:35 Dose: 25 mg Miscellaneous Information ([facility] Ordered Lab Info) 0 each OTHER ONCE ONE Stop: 01/24/18 12:46 Morphine Sulfate (Morphine Inj) 4 mg IV.PUSH Q3H PRN PRN Reason: BREAKTHROUGH PAIN Last Admin: 01/22/18 16:33 Dose: 4 mg Naloxone HCl (Narcan Inj) 0.4 mg IV.PUSH UNSCH PRN PRN Reason: SEE LABEL COMMENTS Oxycodone HCl (Roxicodone) 10 mg PO Q4H PRN PRN Reason: PAIN SCALE 6 TO 10 Last Admin: 01/22/18 21:35 Dose: 10 mg Pantoprazole Sodium (Protonix) 40 mg PO DAILY [facility] Last Admin: 01/22/18 09:30 Dose: 40 mg Pharmacy Profile Note (Vancomycin Consult Pharmacy) 1 each OTHER UNSCH PRN PRN Reason: Pharmacy to dose Pregabalin (Lyrica) 75 mg PO BID [facility] Last Admin: 01/22/18 21:35 Dose: 75 mg Sennosides (Senokot) 17.2 mg PO Q12H PRN PRN Reason: Moderate Constipation Last Admin: 01/21/18 22:30 Dose: 17.2 mg Sodium Chloride (Ns Flush) 2 ml IV.FLUSH PRN PRN PRN Reason: FLUSH AFTER USING IV ACCESS Last Admin: 01/20/18 20:43 Dose: 2 ml Temazepam (Restoril) 15 mg PO HS PRN PRN Reason: INSOMNIA Last Admin: 01/22/18 21:35 Dose: 15 mg Allergies/Adverse Reactions: Allergies Allergy/AdvReac Type Severity Reaction Status Date / Time No Known Allergies Allergy Unverified 01/17/18 11:06 Physical Exam Vital signs: Vital Signs 01/22/18 08:00 01/22/18 10:00 01/22/18 10:48 Temperature 100.7 F H Pulse Rate 85 70 Respiratory Rate 18 Blood Pressure 181/82 H 125/60 Pulse Oximetry 93 L 96 01/22/18 12:00 01/22/18 16:00 01/22/18 20:00 Temperature 98.2 F 98.2 F 99.9 F H Pulse Rate 79 77 91 H Respiratory Rate 16 16 18 Blood Pressure 112/57 L 142/60 H 174/79 H Pulse Oximetry 95 100 92 L 01/22/18 20:44 01/23/18 00:00 01/23/18 04:00 Temperature 101.9 F H 98.1 F Pulse Rate 91 H 96 H 65 Respiratory Rate 20 18 Blood Pressure 139/61 153/71 H Pulse Oximetry 93 L 94 L Intake & Output 01/22/18 01/23/18 01/23/18 18:59 06:59 18:59 Intake Total 1026.4 / 1026.4 1779 Balance 1026.4 / 1026.4 1779 Weight 71.8 kg Intake: IV 526.4 / 526.4 1100 / 1100 Novastan Inj 250 MG In NS Inj 176.4 / 176.4 247.5 ML @ Per Protocol IV.CONT TITRATE PRN Rx#:[id number] D5W/05/09 NS Inj 1,000 ML @ 80 1000 / 1000 mls/hr IV.CONT .[id number] [facility] Rx# :[id number] Maxipime Inj 2,000 MG In NS Inj 100 / 100 100 / 100 100 ML @ 200 mls/hr IV.SIG Q12H [facility] Rx#:[id number] Vancomycin Inj 1,000 MG In NS 250 / 250 Inj 250 ML @ 250 mls/hr IV.SIG Q24H [facility] Rx#:[id number] Oral 500 / 500 680 / 680 Other: # Voids 5 3 Date of Last Bowel Movement 01/20/18 01/19/18 # Bowel Movements 0 Narrative: 5/5 bue and left quad and ip left foot drop still maybe a little worse Objective Laboratory Results - last 24 hr 01/18/18 01/18/18 01/22/18 13:15 15:36 07:11 WBC 11.8 H RBC 2.84 L Hgb 8.9 L Hct 26.2 L MCV 92.2 MCH 31.2 MCHC 33.9 RDW 16.5 Plt Count 34 L MPV 9.2 Prelim Diff (Auto) Slide review pending Neut % (Auto) 72.3 H Lymph % (Auto) 8.8 L Ogle % (Auto) 14.0 H Eos % (Auto) 4.2 H Baso % (Auto) 0.7 Neut # (Auto) 8.5 H Lymph # (Auto) 1.0 Ogle # (Auto) 1.6 H Eos # (Auto) 0.5 H Baso # (Auto) 0.1 WBC Differential . Diff Scan Auto diff confirmed Differential Comment . Platelet Estimate Low L Platelet Morphology Normal RBC Morphology Normal APTT Sodium Potassium Chloride Carbon Dioxide Anion Gap BUN Creatinine Estimated GFR Random Glucose Calcium Total Bilirubin AST ALT Alkaline Phosphatase Total Protein Albumin PEP Pathologist Comment Serotonin Release Assay Positive A Urine Eosinophils CHAI UFH Low Dose 0.1 49 CHAI UFH Low Dose 0.5 60 [facility] UFH High Dose 100 0 01/22/18 01/22/18 01/22/18 07:11 07:11 21:30 WBC RBC Hgb Hct MCV MCH MCHC RDW Plt Count MPV Prelim Diff (Auto) Neut % (Auto) Lymph % (Auto) Ogle % (Auto) Eos % (Auto) Baso % (Auto) Neut # (Auto) Lymph # (Auto) Ogle # (Auto) Eos # (Auto) Baso # (Auto) WBC Differential Diff Scan Differential Comment Platelet Estimate Platelet Morphology RBC Morphology APTT 73.7 H Sodium 136 Potassium 4.0 Chloride 103 Carbon Dioxide 21.6 Anion Gap 11 BUN 23 H Creatinine 1.80 H Estimated GFR 38 L Random Glucose 102 Calcium 8.4 L Total Bilirubin 0.8 AST 57 H ALT 37 Alkaline Phosphatase 70 Total Protein 6.4 Albumin 2.4 L PEP Pathologist Comment Serotonin Release Assay Urine Eosinophils None seen CHAI UFH Low Dose 0.1 [facility]AI UFH Low Dose 0.5 CHAI UFH High Dose 100 Microbiology 01/21/18 10:25 Aerobic Blood Culture - Preliminary Blood - Peripheral No growth in 1 day Anaerobic Blood Culture - Preliminary No growth in 1 day 01/21/18 10:14 Aerobic Blood Culture - Preliminary Blood - Peripheral No growth in 1 day Anaerobic Blood Culture - Preliminary No growth in 1 day Review/Management - Review/Management Plan: D/W DR LING TRIAL OF DDECADRON 4MG QID MRI RPT NOT YET DONE PT EVAL cta showed some blockages but does have flow in ble arterial dr hannah not convinced the thoracic abn is met could be vascular? i austyn neurorad check cpk labs hit rx per dr pablo hernandez recently fu echo some infarct in kidney ? 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
[2018-01-23] MEDS ORDERED: Dexamethasone Inj 20 MG/5 ML Vial IV.PUSH ONE (08:00)
[2018-01-23 08:15] LABS: Baso # (Auto) 0.1 th/mm3 (0.0-0.2); Baso % (Auto) 0.7 % (0.0-2.0); Eos # (Auto) 0.8 th/mm3 (0.0-0.4); Eos % (Auto) 6.2 % (0.0-4.0); Hemoglobin 9.5 gm/dL (13.0-17.0); Lymph # (Auto) 1.3 th/mm3 (1.0-4.8); Lymph % (Auto) 10.2 % (9.0-44.0); Mean Corpuscular HGB Conc 33.8 % (32.0-36.0); Mean Corpuscular Hemoglobin 31.3 pg (27.0-34.0); Mean Corpuscular Volume 92.4 fL (80.0-100.0); Mean Platelet Volume 9.7 fL (7.0-11.0); Mono # (Auto) 1.3 th/mm3 (0.0-0.9); Mono % (Auto) 10.4 % (0.0-8.0); Neut # (Auto) 9.1 th/mm3 (1.8-7.7); Neut % (Auto) 72.5 % (16.0-70.0); Platelet Count 46 th/mm3 (150-450); Red Blood Count 3.03 mil/mm3 (4.50-5.90); Red Cell Distribution Width 16.7 % (11.6-17.2); White Blood Count 12.5 th/mm3 (4.0-11.0)
[2018-01-23 08:47] LABS: Albumin 2.3 g/dL (3.4-5.0); Anion Gap 8 meq/L (5-15); Aspartate Aminotransferase 50 U/L (15-37); Blood Urea Nitrogen 23 mg/dL (7-18); Calcium 8.2 mg/dL (8.5-10.1); Carbon Dioxide 25.2 meq/L (21.0-32.0); Chloride 104 meq/L (98-107); Glomerular Filtration Rate 37 mL/min (>89); Glucose,Random 118 mg/dL (74-106); Phosphorus 2.9 mg/dL (2.5-4.9); Potassium 4.2 meq/L (3.5-5.1); Sodium 137 meq/L (136-145)
[2018-01-23 08:51] LABS: Alanine Aminotransferase 38 U/L (12-78); Alkaline Phosphatase 76 U/L (45-117); Complement C3 140 mg/dL (90-180); Total Protein 6.6 g/dL (6.4-8.2)
--- NOTE | 2018-01-23 08:51 | P.PNFP ---
Subjective Interval history: pain 4 (down from max of 12/15) <Stephanie Calzada - 01/23/18 16:12> Patient seen and examined this morning. Fever up to 101.9 overnight. Denies any fever/chills since. States pain was less yesterday and overnight. Denies any new symptoms. Discussed improving platelet levels. Continued pain and numbness in left leg. <ChristenRichard rodriguez - 01/23/18 09:18> Results - Labs Result diagrams: 01/23/18 07:16 01/23/18 07:16 <Stephanie Calzada - 01/23/18 16:12> Abnormal lab results 01/18/18 01/23/18 01/23/18 Range/Units 15:36 07:16 07:16 WBC 12.5 H (4.0-11.0) th/mm3 RBC 3.03 L (4.50-5.90) mil/mm3 Hgb 9.5 L (13.0-17.0) gm/dL Hct 28.0 L (39.0-51.0) % Plt Count 46 L D (150-450) th/mm3 Neut % (Auto) 72.5 H (16.0-70.0) % [place] % (Auto) 10.4 H (0.0-8.0) % Eos % (Auto) 6.2 H (0.0-4.0) % Neut # (Auto) 9.1 H (1.8-7.7) th/mm3 [place] # (Auto) 1.3 H (0.0-0.9) th/mm3 Eos # (Auto) 0.8 H (0.0-0.4) th/mm3 Platelet Estimate Low L (Normal) BUN 23 H (7-18) mg/dL Creatinine 1.84 H (0.60-1.30) mg/dL Estimated GFR 37 L (>89) mL/min Random Glucose 118 H (74-106) mg/dL Calcium 8.2 L (8.5-10.1) mg/dL AST 50 H (15-37) U/L Total Creatine Kinase (39-308) U/L CK-MB (CK-2) (0.5-3.6) ng/mL Albumin 2.3 L (3.4-5.0) g/dL Serotonin Release Assay Positive A (NEGATIVE) 01/23/18 Range/Units 07:16 WBC (4.0-11.0) th/mm3 RBC (4.50-5.90) mil/mm3 Hgb (13.0-17.0) gm/dL Hct (39.0-51.0) % Plt Count (150-450) th/mm3 Neut % (Auto) (16.0-70.0) % [place] % (Auto) (0.0-8.0) % Eos % (Auto) (0.0-4.0) % Neut # (Auto) (1.8-7.7) th/mm3 [place] # (Auto) (0.0-0.9) th/mm3 Eos # (Auto) (0.0-0.4) th/mm3 Platelet Estimate (Normal) BUN (7-18) mg/dL Creatinine (0.60-1.30) mg/dL Estimated GFR (>89) mL/min Random Glucose (74-106) mg/dL Calcium (8.5-10.1) mg/dL AST (15-37) U/L Total Creatine Kinase 520 H (39-308) U/L CK-MB (CK-2) 6.4 H (0.5-3.6) ng/mL Albumin (3.4-5.0) g/dL Serotonin Release Assay (NEGATIVE) Short CBC 01/23/18 Range/Units 07:16 WBC 12.5 H (4.0-11.0) th/mm3 Hgb 9.5 L (13.0-17.0) gm/dL Hct 28.0 L (39.0-51.0) % Plt Count 46 L D (150-450) th/mm3 BMP 01/23/18 07:16 Sodium 137 Potassium 4.2 Chloride 104 Carbon Dioxide 25.2 BUN 23 H Creatinine 1.84 H Calcium 8.2 L Cardiac Enzymes 01/23/18 Range/Units 07:16 Total Creatine Kinase 520 H (39-308) U/L CK-MB (CK-2) 6.4 H (0.5-3.6) ng/mL Liver Function 01/23/18 Range/Units 07:16 Total Bilirubin 0.6 (0.2-1.0) mg/dL AST 50 H (15-37) U/L ALT 38 (12-78) U/L Alkaline Phosphatase 76 (45-117) U/L Albumin 2.3 L (3.4-5.0) g/dL <Stephanie Calzada - 01/23/18 16:12> Abnormal lab results 01/18/18 01/22/18 01/23/18 Range/Units 15:36 07:11 07:16 WBC 12.5 H (4.0-11.0) th/mm3 RBC 3.03 L (4.50-5.90) mil/mm3 Hgb 9.5 L (13.0-17.0) gm/dL Hct 28.0 L (39.0-51.0) % Plt Count 46 L D (150-450) th/mm3 Neut % (Auto) 72.5 H (16.0-70.0) % [place] % (Auto) 10.4 H (0.0-8.0) % Eos % (Auto) 6.2 H (0.0-4.0) % Neut # (Auto) 9.1 H (1.8-7.7) th/mm3 [place] # (Auto) 1.3 H (0.0-0.9) th/mm3 Eos # (Auto) 0.8 H (0.0-0.4) th/mm3 Platelet Estimate Low L (Normal) BUN (7-18) mg/dL Creatinine (0.60-1.30) mg/dL Estimated GFR (>89) mL/min Random Glucose (74-106) mg/dL Calcium (8.5-10.1) mg/dL AST (15-37) U/L Albumin (3.4-5.0) g/dL Serotonin Release Assay Positive A (NEGATIVE) 01/23/18 Range/Units 07:16 WBC (4.0-11.0) th/mm3 RBC (4.50-5.90) mil/mm3 Hgb (13.0-17.0) gm/dL Hct (39.0-51.0) % Plt Count (150-450) th/mm3 Neut % (Auto) (16.0-70.0) % [place] % (Auto) (0.0-8.0) % Eos % (Auto) (0.0-4.0) % Neut # (Auto) (1.8-7.7) th/mm3 [place] # (Auto) (0.0-0.9) th/mm3 Eos # (Auto) (0.0-0.4) th/mm3 Platelet Estimate (Normal) BUN 23 H (7-18) mg/dL Creatinine 1.84 H (0.60-1.30) mg/dL Estimated GFR 37 L (>89) mL/min Random Glucose 118 H (74-106) mg/dL Calcium 8.2 L (8.5-10.1) mg/dL AST 50 H (15-37) U/L Albumin 2.3 L (3.4-5.0) g/dL Serotonin Release Assay (NEGATIVE) Short CBC 01/23/18 Range/Units 07:16 WBC 12.5 H (4.0-11.0) th/mm3 Hgb 9.5 L (13.0-17.0) gm/dL Hct 28.0 L (39.0-51.0) % Plt Count 46 L D (150-450) th/mm3 BMP 01/23/18 07:16 Sodium 137 Potassium 4.2 Chloride 104 Carbon Dioxide 25.2 BUN 23 H Creatinine 1.84 H Calcium 8.2 L Liver Function 01/23/18 Range/Units 07:16 AST 50 H (15-37) U/L Albumin 2.3 L (3.4-5.0) g/dL <Richard Kuo - 01/23/18 08:51> - Imaging Impressions Sacrum/Coccyx MRI 01/23/18 00:00 CONCLUSION: Negative MRI of the sacrum. Avascular necrosis right femoral head. MR of the hip is recommended if clinically indicated <Stephanie Calzada - 01/23/18 16:12> Physical Exam Vital signs: Vital Signs 01/22/18 20:00 01/22/18 20:44 01/23/18 00:00 Temperature 99.9 F H 101.9 F H Pulse Rate 91 H 91 H 96 H Respiratory Rate 18 20 Blood Pressure 174/79 H 139/61 Pulse Oximetry 92 L 93 L 01/23/18 04:00 01/23/18 08:00 01/23/18 10:27 Temperature 98.1 F 98.0 F Pulse Rate 65 82 Respiratory Rate 18 20 Blood Pressure 153/71 H 179/84 H Pulse Oximetry 94 L 96 94 L 01/23/18 12:00 Temperature 98.1 F Pulse Rate 80 Respiratory Rate 20 Blood Pressure 126/62 Pulse Oximetry 95 Intake & Output 01/22/18 01/23/18 01/23/18 18:59 06:59 18:59 Intake Total 1026.4 / 1026.4 1780 / 1780 1250 / 1250 Balance 1026.4 / 1026.4 1780 / 1780 1250 / 1250 Weight 71.8 kg Intake: IV 526.4 / 526.4 1100 / 1100 1250 / 1250 Novastan Inj 250 MG In NS Inj 176.4 / 176.4 247.5 ML @ Per Protocol IV.CONT TITRATE PRN Rx#:[id number] D5W/05/09 NS Inj 1,000 ML @ 80 1000 / 1000 1000 / 1000 mls/hr IV.CONT .[id number] [facility] Rx# :[id number] Maxipime Inj 2,000 MG In NS Inj 100 / 100 100 / 100 100 ML @ 200 mls/hr IV.SIG Q12H [facility] Rx#:[id number] Vancomycin Inj 1,000 MG In NS 250 / 250 250 / 250 Inj 250 ML @ 250 mls/hr IV.SIG Q24H [facility] Rx#:[id number] Oral 500 / 500 680 / 680 Other: # Voids 5 3 Date of Last Bowel Movement 01/20/18 01/19/18 # Bowel Movements 0 <ZhengStephanie - 01/23/18 16:12> Vital Signs 01/22/18 10:00 01/22/18 10:48 01/22/18 12:00 Temperature 98.2 F Pulse Rate 70 79 Respiratory Rate 16 Blood Pressure 125/60 112/57 L Pulse Oximetry 96 95 01/22/18 16:00 01/22/18 20:00 01/22/18 20:44 Temperature 98.2 F 99.9 F H Pulse Rate 77 91 H 91 H Respiratory Rate 16 18 Blood Pressure 142/60 H 174/79 H Pulse Oximetry 100 92 L 01/23/18 00:00 01/23/18 04:00 Temperature 101.9 F H 98.1 F Pulse Rate 96 H 65 Respiratory Rate 20 18 Blood Pressure 139/61 153/71 H Pulse Oximetry 93 L 94 L Intake & Output 01/22/18 01/23/18 01/23/18 18:59 06:59 18:59 Intake Total 1026.4 / 1026.4 1779 Balance 1026.4 / 1026.4 1779 Weight 71.8 kg Intake: IV 526.4 / 526.4 1100 / 1100 Novastan Inj 250 MG In NS Inj 176.4 / 176.4 247.5 ML @ Per Protocol IV.CONT TITRATE PRN Rx#:[id number] D5W/1/2 NS Inj 1,000 ML @ 80 1000 / 1000 mls/hr IV.CONT .[id number] [facility] Rx# :[id number] Maxipime Inj 2,000 MG In NS Inj 100 / 100 100 / 100 100 ML @ 200 mls/hr IV.SIG Q12H [facility] Rx#:[id number] Vancomycin Inj 1,000 MG In NS 250 / 250 Inj 250 ML @ 250 mls/hr IV.SIG Q24H [facility] Rx#:[id number] Oral 500 / 500 680 / 680 Other: # Voids 5 3 Date of Last Bowel Movement 01/20/18 01/19/18 # Bowel Movements 0 <Richard Kuo - 01/23/18 08:51> Narrative: Some word recall and focus difficulty, this was noted on my first meeting with pt yesterday, but is more apparent without in room today to facilitate pt answers. Pt remains alert, oriented, good insight. No overt anxiety or depression, speech clear, MS/Neuro overall stable. <Stephanie Calzada - 01/23/18 16:12> GENERAL: Thin appearing male lying in bed in no acute distress SKIN: Warm and dry. No rash. CARDIOVASCULAR: Regular rate and rhythm without obvious murmurs, gallops, or rubs. RESPIRATORY: Prolonged inspiratory and expiratory phase. Decreased breath sounds of the bilateral lower lobes without obvious CRW. No increased work of breathing at this time. Thoracotomy incision appears to be well-healing. GASTROINTESTINAL: Abdomen soft, non-tender, nondistended with positive bowel sounds. MUSCULOSKELETAL: No cyanosis or edema. Continued decreased sensation over left posterior calf, unchanged from previous exams. Mild tenderness to palpation of the bilateral calves stable from previous exams per patient. NEURO/PSYCH: Afocal. Awake, alert, and oriented x3. Normal speech and judgement. <Richard Kuo Yesenia - 01/23/18 09:18> Assessment and Plan - Assessment (1) SIRS (systemic inflammatory response syndrome) Code(s): R65.10 - Systemic inflammatory response syndrome (SIRS) of non- infectious origin without acute organ dysfunction Status: Acute (2) EVON (acute kidney injury) Code(s): N17.9 - Acute kidney failure, unspecified Status: Acute (3) Pain in both lower legs Code(s): M79.661 - Pain in right lower leg; M79.662 - Pain in left lower leg Status: Acute (4) Heparin induced thrombocytopenia Code(s): D75.82 - Heparin induced thrombocytopenia (HIT) Status: Acute (5) Metastatic primary lung cancer Code(s): C34.90 - Malignant neoplasm of unspecified part of unspecified bronchus or lung Status: Acute (6) Thrombosis of right saphenous vein Code(s): I82.811 - Embolism and thrombosis of superficial veins of right lower extremity Status: Acute (7) Anemia Code(s): D64.9 - Anemia, unspecified Status: Acute (8) Atrial fibrillation Code(s): I48.91 - Unspecified atrial fibrillation Status: Acute (9) Nutrition, metabolism, and development symptoms Code(s): R63.8 - Other symptoms and signs concerning food and fluid intake Status: Acute <Stephanie Calzada - 01/23/18 16:12> (1) SIRS (systemic inflammatory response syndrome) Code(s): R65.10 - Systemic inflammatory response syndrome (SIRS) of non- infectious origin without acute organ dysfunction Status: Acute Plan: Patient currently meeting SIRS criteria with low grade temps & leukocytosis. No obvious source of infection, however inflammatory response could be related to malignancy vs thrombosis. CBC: Improving leukocytosis Chest x-ray (01/20): Stable from admission Urinalysis (01/20): Negative leukocyte esterase and nitrite, large occult blood, 100 protein, rare bacteria; otherwise negative Lactic acid 0.7; ESR 66 -Blood cultures 01/21/18: NGTD -Started on antibiotics -Vancomycin (01/21 - ) -Cefepime 2g 24H (01/21 - ) (changed to Cefepime to q24H due to EVON) (2) EVON (acute kidney injury) Code(s): N17.9 - Acute kidney failure, unspecified Status: Acute Plan: Increasing serum creatinine during hospitalization. Admitted with Cr of 1.2. CMP from 06/28/17 with Cr of 0.95 Aortic CTA shows infarct of inferior pole of right kidney of unknown age. Possibly related to contrast administration during hospitalization -Monitor I/Os -Monitor BMP -Avoid nephrotoxic agents -Avoid further contrast studies if able -Renal consulted -Suspect contrast nephrotoxicity -Serum complements pending; urine eosinophils negative -Continue IV hydration of D5-1/2NS @ 80mls/hr (3) Pain in both lower legs Code(s): M79.661 - Pain in right lower leg; M79.662 - Pain in left lower leg Status: Acute Plan: Patient presented after worsening pain and weakness in bilateral legs. Upon further discussion with patient, has signs and symptoms of peripheral arterial disease. Also with associated neuropathy and weakness upon admission. 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 -Continue Lyrica -Recommend LP, holding due to thrombocytopenia -Ordered Decadron 10mg IV once -EMG pending -Vascular consulted-appreciate recs -Non-candidate for revascularization at this time due to thrombocytopenia as well as his metastatic disease -Does not think symptoms are vascular in origin -Heme/onc consulted -Treating HIT with argatroban -PT evaluating -recommend home health -Oxycodone and morphine PRN pain (4) Heparin induced thrombocytopenia Code(s): D75.82 - Heparin induced thrombocytopenia (HIT) Status: Acute Plan: Postop from lobectomy and s/p heparin 9 days on admission Heparin-induced thrombocytopenia antibody positive Platelets trending up No transfusion recommended at this time due to possibility of further coagulation Hold all heparin forms Heme/onc consulted-HIT with thrombosis -On argatroban gtt (5) Metastatic primary lung cancer Code(s): C34.90 - Malignant neoplasm of unspecified part of unspecified bronchus or lung Status: Acute Plan: Status post chemo in November, status post lobectomy Recent PET scans negative MRI spine shows possible mets Repeat brain MRI with no acute change -Management per oncology team; discussing case with patients Oncologist in [place] , Dr. Dillard -Regarding possible drop mets -Unsure of etiology at this time -Radiation oncology consulted -No therapy at this time due to low platelets (6) Thrombosis of right saphenous vein Code(s): I82.811 - Embolism and thrombosis of superficial veins of right lower extremity Status: Acute Plan: Lower extremity superficial vein, generally benign and self-limited however a larger vein is involved in this case Caution with propagation into the DVT system and PE possibility Likely due to abnormal coagulation at this time may repeat duplex ultrasound with further clinical signs Elevation Warm and cool compresses Compression stockings Pain management (7) Anemia Code(s): D64.9 - Anemia, unspecified Status: Acute Plan: No history of anemia per patient Likely chronic anemia, patient at high risk for bleeding due to thrombocytopenia Unsure of the exact cause, chemotherapy vs recent surgery vs chronic anemia (8) Atrial fibrillation Code(s): I48.91 - Unspecified atrial fibrillation Status: Acute Plan: History of Afib. Controlled rate Echo shows EF of 50-55% Segmental wall motion abnormalities with hypokinesis No episodes of Afib during admission, d/c Telemetry Continue metoprolol (9) Nutrition, metabolism, and development symptoms Code(s): R63.8 - Other symptoms and signs concerning food and fluid intake Status: Acute Plan: Fluids: D5-1/2NS @ 80mls/hr Electrolytes: Follow-up BMP and replete as needed Nutrition: Regular diet DVT prophylaxis: Holding all heparin products, argatroban gtt Incentive spirometry <Richard Kuo - 01/23/18 12:15> - Assessment and Plan 62 y/o male with history of lung cancer with mets to brain, hypertension, atrial fibrillation presented on admission with bilateral leg pain/weakness. Admitted for workup. 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 Leg pain being worked up with etiology of vascular vs neurologic vs infectious vs other. Currently on argatroban gtt and working up leg pain further with pain management. <Richard Kuo - 01/23/18 08:51> Discussed Condition With: AROLDO Calzada <Richard Kuo 01/23/18 12:19> Discharge Planning: Pending improvement of platelets and workup of leg pain. PT recommends home health upon discharge Advanced Directives discussed with pt on 01/22. Paperwork completed. Pt's is Health care surrogate. Confirmed full code status and <Richard Kuo - 01/23/18 12:19> Attestation Collaborating MD Comments: The exam, history, and the medical decision-making described in the above note were completed with the assistance of the resident physician. I reviewed and agree with the findings presented. I attest that I had a [id number] encounter with the patient on the same day, and personally performed and documented my assessment and findings in the medical record. Pt seen and examined this afternoon, d/w Dr Kuo earlier this am. Adjusted cefipime for GFR 40. D/C tele as no concerning events. <ZhengOscar grayt - 01/23/18 16:12> <Richard Kuo - Last Filed: 01/23/18 12:15> (7) Anemia Qualifiers: Anemia type: bone marrow failure Bone marrow failure anemia type: pancytopenia, antineoplastic chemotherapy-induced Qualified Code(s): D61.810 - Antineoplastic chemotherapy induced pancytopenia; T45.1X5A - Adverse effect of antineoplastic and immunosuppressive drugs, initial encounter <Stephanie Calzada - Last Filed: 01/23/18 16:12> (7) Anemia Qualifiers: Qualified Code(s): D61.810 - Antineoplastic chemotherapy induced pancytopenia ; T45.1X5A - Adverse effect of antineoplastic and immunosuppressive drugs, initial encounter <Richard Kuo - Last Filed: 01/23/18 12:15> (7) Anemia Qualifiers: Anemia type: bone marrow failure Bone marrow failure anemia type: pancytopenia, antineoplastic chemotherapy-induced Qualified Code(s): D61.810 - Antineoplastic chemotherapy induced pancytopenia; T45.1X5A - Adverse effect of antineoplastic and immunosuppressive drugs, initial encounter <Stephanie Calzada - Last Filed: 01/23/18 16:12> (7) Anemia Qualifiers: Qualified Code(s): D61.810 - Antineoplastic chemotherapy induced pancytopenia ; T45.1X5A - Adverse effect of antineoplastic and immunosuppressive drugs, initial encounter
[2018-01-23] MEDS: Pregabalin 75 MG Capsule PO SCH ×2 (08:55→20:34)
[2018-01-23] MEDS: Metoprolol Tartrate 25 MG Tablet PO SCH ×2 (08:55→20:34)
[2018-01-23] MEDS: Folic Acid 1 MG Tablet PO SCH (08:55)
[2018-01-23 09:00] LABS: Platelet Morphology Normal (Normal)
[2018-01-23] MEDS: Morphine Inj 4 MG/ML Vial IV.PUSH PRN ×2 (09:00→20:39)
[2018-01-23 09:01] LABS: Methylmalonic Acid 0.26 nmol/mL (<=0.40)
[2018-01-23] MEDS: Budesonide-Formoterol 160/4.5 MCG 6 GM Inhaler INH SCH ×2 (09:08→20:39)
--- NOTE | 2018-01-23 09:09 | P.PNNP ---
Subjective Interval history: This patient is a 62-year-old male with a complicated medical history. 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 Subsequently went to the [facility] for further treatment which confirmed presence of a 7.4 cm left upper lobe lung mass. Underwent resection of brain mass June 2017 and subsequently started on chemotherapy which included keytrude and Platinol both apparently can be associated with renal insufficiency with patient is unaware of this occurring by history. Last cycle of chemotherapy said to be November 20, 2017. He underwent a thoracotomy January 01, 2018 with wedge resection left upper lobe. Hospital course said to have gone well at the [facility]. Subsequently was discharged but presented to this institution with severe right leg pain. CTA was performed at this institution January 17, 2018 which revealed infarction of the inferior pole of the right kidney of unknown age. Also severe chronic infrarenal atherosclerotic disease causing severe narrowing of the distal aorta and proximal inflow vessels. Patient's creatinine level at the time of presentation 1.2 no previous levels available to me. Creatinine level has been rising subsequently to 1.8 today. 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 01/23/18 Pt going to MRI today of sacrum and coccyx for further eval of L leg weakness. Overall says he is feeling OK. present in room. Appetite poor. Denies NVD <Puja Martinez R - Last Filed: 01/23/18 10:03> Physical Exam Vital signs: Vital Signs 01/22/18 10:00 01/22/18 10:48 01/22/18 12:00 Temperature 98.2 F Pulse Rate 70 79 Respiratory Rate 16 Blood Pressure 125/60 112/57 L Pulse Oximetry 96 95 01/22/18 16:00 01/22/18 20:00 01/22/18 20:44 Temperature 98.2 F 99.9 F H Pulse Rate 77 91 H 91 H Respiratory Rate 16 18 Blood Pressure 142/60 H 174/79 H Pulse Oximetry 100 92 L 01/23/18 00:00 01/23/18 04:00 01/23/18 08:00 Temperature 101.9 F H 98.1 F 98.0 F Pulse Rate 96 H 65 82 Respiratory Rate 20 18 20 Blood Pressure 139/61 153/71 H 179/84 H Pulse Oximetry 93 L 94 L 96 Intake & Output 01/22/18 01/23/18 01/23/18 18:59 06:59 18:59 Intake Total 1026.4 / 1026.4 1779 Balance 1026.4 / 1026.4 1779 Weight 71.8 kg Intake: IV 526.4 / 526.4 1100 / 1100 Novastan Inj 250 MG In NS Inj 176.4 / 176.4 247.5 ML @ Per Protocol IV.CONT TITRATE PRN Rx#:[id number] D5W/1/2 NS Inj 1,000 ML @ 80 1000 / 1000 mls/hr IV.CONT .[id number] [facility] Rx# :[id number] Maxipime Inj 2,000 MG In NS Inj 100 / 100 100 / 100 100 ML @ 200 mls/hr IV.SIG Q12H [facility] Rx#:[id number] Vancomycin Inj 1,000 MG In NS 250 / 250 Inj 250 ML @ 250 mls/hr IV.SIG Q24H [facility] Rx#:[id number] Oral 500 / 500 680 / 680 Other: # Voids 5 3 Date of Last Bowel Movement 01/20/18 01/19/18 # Bowel Movements 0 - Constitutional no acute distress - Routine HEENT Exam Head: Present: normocephalic - Routine Neck Exam Present: supple - Routine Respiratory Exam Present: CTA bilaterally - Routine Cardiovascular Exam Present: RRR, S1, S2 - Routine Abdominal Exam Present: soft - Routine Extremities Exam Absent: edema - Routine Neurological Exam Present: alert, oriented X3 - Routine Psychiatric Exam Present: normal affect <Puja Martinez - Last Filed: 01/23/18 10:03> Vital signs: Vital Signs 01/23/18 20:00 01/23/18 23:18 01/24/18 01:19 Temperature 96.5 F L 98.3 F Pulse Rate 88 70 Respiratory Rate 18 18 Blood Pressure 127/76 143/78 H Pulse Oximetry 95 92 L 92 L 01/24/18 03:34 01/24/18 08:00 01/24/18 12:00 Temperature 97.2 F L 97.7 F 98.4 F Pulse Rate 70 73 75 Respiratory Rate 18 18 18 Blood Pressure 120/77 140/97 H 137/64 Pulse Oximetry 93 L 98 95 01/24/18 14:02 01/24/18 16:00 Temperature 98.7 F Pulse Rate 78 Respiratory Rate 18 Blood Pressure 186/86 H Pulse Oximetry 96 94 L Intake & Output 01/23/18 01/24/18 01/24/18 18:59 06:59 18:59 Intake Total 2980 / 2980 2199.2 / 2199.2 Output Total 680 / 680 Balance 2980 / 2980 1519.2 / 1519.2 Weight 71.8 kg Intake: IV 2500 / 2500 1399.2 / 1399.2 Novastan Inj 250 MG In NS Inj 250 / 250 99.2 / 99.2 247.5 ML @ Per Protocol IV.CONT TITRATE PRN Rx#:[id number] D5W/1/2 NS Inj 1,000 ML @ 80 2000 / 2000 1200 / 1200 mls/hr IV.CONT .[id number] [facility] Rx# :[id number] Maxipime Inj 2,000 MG In NS Inj 100 / 100 100 ML @ 200 mls/hr IV.SIG Q12H [facility] Rx#:[id number] Vancomycin Inj 1,000 MG In NS 250 / 250 Inj 250 ML @ 250 mls/hr IV.SIG Q24H [facility] Rx#:[id number] Oral 480 / 480 800 / 800 Output: Urine 680 / 680 Other: # Voids 2 4 <Samy Silver - Last Filed: 01/24/18 16:47> Assessment and Plan - Assessment (1) EVON (acute kidney injury) Code(s): N17.9 - Acute kidney failure, unspecified Status: Acute Plan: Patient likely has developed some degree of contrast nephrotoxicity post CTA. Patient also has evidence of renal infarct involving the lower pole of the right kidney. Unfortunately cannot be certain as to the timing of the event. 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 Also mention of atrial fibrillation and a history. Potential for pre-existing renal insufficiency related to chemotherapy from [facility] as admitting SCr at 1.2. Serum complements within normal range. Urine eosinophils negative. Continue IV hydration. Now on Vanco. Monitor levels. No specific treatment for contrast nephropathy and is already on anticoagulants for HIT. Medications should be adjusted for the patient's estimated GFR if clinically indicated. Avoid agents with significant potential for nephrotoxicity possible including NSAIDs for analgesia, iodine contrast agents. Gadolinium is contraindicated if the GFR is below 30. (2) Renal infarction Code(s): N28.0 - Ischemia and infarction of kidney Status: Acute Plan: Risk factors as described above for renal infarction. Timing of infarction uncertain and it may have been subacute or chronic in nature. Patient already on anticoagulation. No new recommendations from my point of view in regard to management of same. <Puja Martinez - Last Filed: 01/23/18 10:03> - Assessment (1) EVON (acute kidney injury) Code(s): N17.9 - Acute kidney failure, unspecified Status: Acute (2) Renal infarction Code(s): N28.0 - Ischemia and infarction of kidney Status: Acute - Attending Attestation The exam, history, and the medical decision-making described in the above note were completed with the assistance of the KEM. I reviewed and agree with the findings presented. <Samy Silver - Last Filed: 01/24/18 16:47>
[2018-01-23 09:23] LABS: CKMB Percent 1.2 % (0.0-4.0); Creatine Kinase MB 6.4 ng/mL (0.5-3.6)
[2018-01-23] MEDS ORDERED: Gadobutrol PF 7.5 MMOL/7.5 ML Vial (for RAD) IV.SIG ONE (10:00)
[2018-01-23] MEDS: Vancomycin Inj 1,000 MG in Sodium Chlor 0.9% Inj 250 ML IV.SIG SCH (12:36)
--- NOTE | 2018-01-23 13:47 | MR ---
EXAM DATE: 01/23/2018 11:02 AM EDT AGE/SEX: 62 years / Male INDICATIONS: . Lumbar plexus mass. CLINICAL DATA: This is the patient's subsequent encounter. Patient reports that signs and symptoms h ave been present for 1 week and indicates a pain score of 4/10. MEDICAL/SURGICAL HISTORY: Carcinoma, lung. Craniotomy. Lobectomy. COMPARISON: No prior exams available for comparison. TECHNIQUE: Multiplanar multisequence MRI examination of the sacrum/coccyx was performed without and with 7 ml Gadavist (gadobutrol) contrast as a single exam dose. FINDINGS: There is normal marrow signal intensity and there are no findings of sacral insufficiency fracture. N o focal areas of marrow placement are identified. Examination of the sacroiliac joints demonstrates no findings of osteoarthritis. No fluid is identified within the joint. Following the administration of contrast no abnormal enhancement is identified. Examination of the soft tissue structures of the pelvis demonstrates no abnormality. A small amount of fluid is present within the pelvis within the physiologic range. Examination the right hip demonstrates findings of avascular necrosis involving the femoral head. The re is no collapse. MR of the hip could be performed to further evaluate this if clinically indicated. CONCLUSION: Negative MRI of the sacrum. Avascular necrosis right femoral head. MR of the hip is recommended if clinically indicated Electronically signed by: Rafi Zabala MD 01/23/2018 1:46 PM EDT
--- NOTE | 2018-01-23 14:56 | P.PNONC ---
Subjective Interval history: T-max 101.9F. Patient lying in bed sleeping on approach, awakens easily to voice. Continues to have left leg pain, relieved with pain medications. Patient awaiting reconsultation from vascular. Continues on argatroban drip. Denies any bleeding. Objective Vital Signs/Intake & Output: Vital Signs 01/22/18 16:00 01/22/18 20:00 01/22/18 20:44 Temperature 98.2 F 99.9 F H Pulse Rate 77 91 H 91 H Respiratory Rate 16 18 Blood Pressure 142/60 H 174/79 H Pulse Oximetry 100 92 L 01/23/18 00:00 01/23/18 04:00 01/23/18 08:00 Temperature 101.9 F H 98.1 F 98.0 F Pulse Rate 96 H 65 82 Respiratory Rate 20 18 20 Blood Pressure 139/61 153/71 H 179/84 H Pulse Oximetry 93 L 94 L 96 01/23/18 10:27 01/23/18 12:00 Temperature 98.1 F Pulse Rate 80 Respiratory Rate 20 Blood Pressure 126/62 Pulse Oximetry 94 L 95 Intake & Output 01/22/18 01/23/18 01/23/18 18:59 06:59 18:59 Intake Total 1026.4 / 1026.4 1780 / 1780 Balance 1026.4 / 1026.4 178 / 1780 Weight 71.8 kg Intake: IV 526.4 / 526.4 1100 / 1100 Novastan Inj 250 MG In NS Inj 176.4 / 176.4 247.5 ML @ Per Protocol IV.CONT TITRATE PRN Rx#:[id number] D5W/1/2 NS Inj 1,000 ML @ 80 1000 / 1000 mls/hr IV.CONT .[id number] [facility]ONNE Rx# :[id number] Maxipime Inj 2,000 MG In NS Inj 100 / 100 100 / 100 100 ML @ 200 mls/hr IV.SIG Q12H [facility]NE Rx#:[id number] Vancomycin Inj 1,000 MG In NS 250 / 250 Inj 250 ML @ 250 mls/hr IV.SIG Q24H [facility] Rx#:[id number] Oral 500 / 500 680 / 680 Other: # Voids 5 3 Date of Last Bowel Movement 01/20/18 01/19/18 # Bowel Movements 0 Result Diagrams: 01/23/18 07:16 09/18/18 07:16 Laboratory Results: Laboratory Results - last 24 hr 01/17/18 01/18/18 01/18/18 20:59 13:15 15:36 WBC RBC Hgb Hct MCV MCH MCHC RDW Plt Count MPV Prelim Diff (Auto) Neut % (Auto) Lymph % (Auto) Hand % (Auto) Eos % (Auto) Baso % (Auto) Neut # (Auto) Lymph # (Auto) Hand # (Auto) Eos # (Auto) Baso # (Auto) WBC Differential Diff Scan Differential Comment Platelet Estimate Platelet Morphology Sodium Potassium Chloride Carbon Dioxide Anion Gap BUN Creatinine Estimated GFR Random Glucose Calcium Phosphorus Total Bilirubin AST ALT Alkaline Phosphatase Total Creatine Kinase CK-MB (CK-2) CK-MB (CK-2) % Total Protein Albumin Serotonin Release Assay Positive A Thiamine 136 Methylmalonic Acid 0.18 0.26 Urine Eosinophils CHAI UFH Low Dose 0.1 49 CHAI UFH Low Dose 0.5 60 CHAI UFH High Dose 100 0 Complement C3 Complement C4 01/22/18 01/23/18 01/23/18 21:30 07:16 07:16 WBC 12.5 H RBC 3.03 L Hgb 9.5 L Hct 28.0 L MCV 92.4 MCH 31.3 MCHC 33.8 RDW 16.7 Plt Count 46 L D MPV 9.7 Prelim Diff (Auto) Slide review pending Neut % (Auto) 72.5 H Lymph % (Auto) 10.2 Hand % (Auto) 10.4 H Eos % (Auto) 6.2 H Baso % (Auto) 0.7 Neut # (Auto) 9.1 H Lymph # (Auto) 1.3 Hand # (Auto) 1.3 H Eos # (Auto) 0.8 H Baso # (Auto) 0.1 WBC Differential . Diff Scan Auto diff confirmed Differential Comment . Platelet Estimate Low L Platelet Morphology Normal Sodium 137 Potassium 4.2 Chloride 104 Carbon Dioxide 25.2 Anion Gap 8 BUN 23 H Creatinine 1.84 H Estimated GFR 37 L Random Glucose 118 H Calcium 8.2 L Phosphorus 2.9 Total Bilirubin 0.6 AST 50 H ALT 38 Alkaline Phosphatase 76 Total Creatine Kinase CK-MB (CK-2) CK-MB (CK-2) % Total Protein 6.6 Albumin 2.3 L Serotonin Release Assay Thiamine Methylmalonic Acid Urine Eosinophils None seen CHAI UFH Low Dose 0.1 CHAI UFH Low Dose 0.5 CHAI UFH High Dose 100 Complement C3 140 Complement C4 20 01/23/18 07:16 WBC RBC Hgb Hct MCV MCH MCHC RDW Plt Count MPV Prelim Diff (Auto) Neut % (Auto) Lymph % (Auto) Hand % (Auto) Eos % (Auto) Baso % (Auto) Neut # (Auto) Lymph # (Auto) Hand # (Auto) Eos # (Auto) Baso # (Auto) WBC Differential Diff Scan Differential Comment Platelet Estimate Platelet Morphology Sodium Potassium Chloride Carbon Dioxide Anion Gap BUN Creatinine Estimated GFR Random Glucose Calcium Phosphorus Total Bilirubin AST ALT Alkaline Phosphatase Total Creatine Kinase 520 H CK-MB (CK-2) 6.4 H CK-MB (CK-2) % 1.2 Total Protein Albumin Serotonin Release Assay Thiamine Methylmalonic Acid Urine Eosinophils CHAI UFH Low Dose 0.1 CHAI UFH Low Dose 0.5 CHAI UFH High Dose 100 Complement C3 Complement C4 Culture Results: Microbiology 01/21/18 10:25 Aerobic Blood Culture - Preliminary Blood - Peripheral No growth in 2 days Anaerobic Blood Culture - Preliminary No growth in 2 days 01/21/18 10:14 Aerobic Blood Culture - Preliminary Blood - Peripheral No growth in 2 days Anaerobic Blood Culture - Preliminary No growth in 2 days Imaging Studies: Impressions Sacrum/Coccyx MRI 01/23/18 00:00 CONCLUSION: Negative MRI of the sacrum. Avascular necrosis right femoral head. MR of the hip is recommended if clinically indicated Medications: Active Medications Generic Name Dose Route Start Last Admin Trade Name Freq PRN Reason Stop Dose Admin Acetaminophen 650 mg 01/21/18 12:11 01/22/18 23:55 Tylenol PO 650 mg Q6H PRN Administration FEVER > 100.4 F Budesonide/Formoterol Fumarate 2 puff 01/17/18 14:00 01/23/18 09:08 Symbicort 160/4.5 Mcg Inh INH 2 puff BID SHAVONNE Administration Clonidine HCl 0.1 mg 01/18/18 08:33 01/22/18 09:45 Catapres PO 0.1 mg Q6H PRN Administration SEE LABEL COMMENTS Folic Acid 1 mg 01/17/18 13:45 01/23/18 08:55 Folic Acid PO 1 mg DAILY SHAVONNE Administration Argatroban 250 mg/ Sodium 250 mls @ 0 mls/hr 01/18/18 15:00 01/22/18 09:31 Chloride IV.CONT 2 mcg/kg/min TITRATE PRN 8.29 mls/hr Per Protocol Administration Protocol Per Protocol Sodium Chloride 1,000 mls @ 0 mls/hr 01/21/18 09:15 01/21/18 18:07 Ns Inj IV.SIG Infused BOLUS SHAVONNE Infusion Wide Open Vancomycin HCl 1,000 mg/ 250 mls @ 250 mls/hr 01/22/18 13:00 01/23/18 12:36 Sodium Chloride IV.SIG 250 mls/hr Q24H SH[facility]ONNE Administration Dextrose/Sodium Chloride 1,000 mls @ 80 mls/hr 01/22/18 13:15 01/23/18 02:41 D5w/1/2 Ns Inj IV.CONT 80 mls/hr .[id number] SHAVONNE Administration Metoprolol Tartrate 25 mg 01/17/18 13:45 01/23/18 08:55 Lopressor PO 25 mg BID SHAVONNE Administration Morphine Sulfate 4 mg 01/18/18 02:56 01/23/18 09:00 Morphine Inj IV.PUSH 4 mg Q3H PRN Administration BREAKTHROUGH PAIN Oxycodone HCl 10 mg 01/18/18 02:56 01/23/18 13:09 Roxicodone PO 10 mg Q4H PRN Administration PAIN SCALE 6 TO 10 Pantoprazole Sodium 40 mg 01/17/18 14:00 01/23/18 08:55 Protonix PO 40 mg DAILY SHAVONNE Administration Pregabalin 75 mg 01/22/18 09:30 01/23/18 08:55 Lyrica PO 75 mg BID SHAVONNE Administration Sennosides 17.2 mg 01/17/18 14:08 01/21/18 22:30 Senokot PO 17.2 mg Q12H PRN Administration Moderate Constipation Sodium Chloride 2 ml 01/17/18 11:17 01/20/18 20:43 Ns Flush IV.FLUSH 2 ml PRN PRN Administration FLUSH AFTER USING IV ACCESS Temazepam 15 mg 01/17/18 21:00 01/22/18 21:35 Restoril PO 15 mg HS PRN Administration INSOMNIA Objective Remarks: GENERAL: Middle-aged male patient, lying in bed, in no acute distress. SKIN: Warm and dry. HEAD: Normocephalic. EYES: No scleral icterus. No injection or drainage. NECK: Supple, trachea midline. CARDIOVASCULAR: Regular rate and rhythm without murmurs. RESPIRATORY: Anterior breath sounds clear, non-labored. GASTROINTESTINAL: Abdomen soft, non-tender, nondistended. EXTREMITIES: No edema. Bilateral toes cool to touch, remaining feet warm. Non- palpable PT, DP pulses. Strength < LLE. MUSCULOSKELETAL: Adequate muscle tone. NEUROLOGICAL: No obvious focal deficit. Awake, alert, and oriented x3. PSYCHIATRIC: Appropriate mood and affect; insight and judgment normal. 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 Bernstein is a pleasant 62-year-old gentleman with a history of non-small cell lung cancer with brain metastasis, status post craniotomy with resection followed by stereotactic radiosurgery with gamma knife, 3-4 cycles of preop Immunochemotherapy with 2 doses of Platinol and Alimta he also underwent thoracotomy and resection of the left upper lobe and wedge resection of the left lower lobe on 01/01/2018. Patient had minimal residual disease of 0.6 cm and also the lymph nodes were negative. Margins were also negative. During this admission the patient was found to have severe thrombocytopenia. Patient did have recent exposure to subcutaneous heparin after his recent surgery. Plan: 1. Non-small cell lung cancer with brain metastasis, status post above treatments. MR thoracic spine abnormality that may be related to nerve root enhancement or drop metastasis. 2. 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 Platelets increasing, at 46,000 today. Continue on argatroban. CHAI pending. Avoid heparin exposure. Monitor for bleeding. No transfusions warranted at this time. 3. Thrombosis of right saphenous vein. On argatroban drip for thrombocytopenia. 4. Left lower extremity with pain and tingling, toes cool to touch. neurology following. They recommend LP to r/o carcinomatous meningitis, once platelets have improved. Bilateral toes cool to touch and pain increasing, vascular was reconsulted to evaluate for thrombosis/emboli vs. PAD. Awaiting their evaluation. 5. Fevers, of unknown origin. Chest x-ray on 01/20/2018 with stable. Blood cultures no growth x's one day. Continue vancomycin and cefepime. Stop scheduled Tylenol for pain, as this could be masking fevers. Avoid NSAIDs with low platelet count. Patient has oxycodone and morphine ordered for breakthrough pain. - Attending Statement The exam, history, and the medical decision-making described in the above note were completed with the assistance of the mid-level provider. I reviewed and agree with the findings presented. I attest that I had a [id number] encounter with the patient on the same day, and personally performed and documented my assessment and findings in the medical record. Still c/o left lower leg pain and difficulty walking. HIT Mario Alberto (screening test) is positive and CHAI(confirmatory test) today came back positive as well. 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 Continue Argatroban drip. Plat are coming up. Today 45. Creatinine went up due to Right kidney infarction as well contrast nephropathy. His left lower leg is more cold than right. This could be due to severe PAD or new thrombosis/Emboli. Extensive discussion with interventional radiologist DR Veras regarding Doppler arterial US vs CTA with run off. Due to high creatinine another CTA with run off carries high risk for worsening Kidney function. Doppler arterial US lower leg will not be able to detect thrombosis/embolism Pt is at high risk for bleeding with chemical thrombolysis (TPA) due to recent thoracotomy and left lung resection on 01/01/18. Also he had craniotomy with resection of isolated brain mets in 06/2017 this was followed up by [facility] to tumor bed. He may be a candidate for mechanical thrombolysis . He will d/w DR Patterson (vascular surgeon). Reconsult Dr Patterson. d/w pt
[2018-01-23] MEDS: Temazepam 15 MG Capsule PO PRN (22:45)
[2018-01-24] MEDS: Dextrose 5%/NaCl 0.45% Inj 1,000 ML IV.CONT SCH ×4 (02:11→22:05)
[2018-01-24 06:14] LABS: Baso # (Auto) 0.1 th/mm3 (0.0-0.2); Baso % (Auto) 0.5 % (0.0-2.0); Eos % (Auto) 0.1 % (0.0-4.0); Hematocrit 25.8 % (39.0-51.0); Hemoglobin 8.5 gm/dL (13.0-17.0); Lymph # (Auto) 0.8 th/mm3 (1.0-4.8); Lymph % (Auto) 6.6 % (9.0-44.0); Mean Corpuscular HGB Conc 32.9 % (32.0-36.0); Mean Corpuscular Hemoglobin 30.8 pg (27.0-34.0); Mean Corpuscular Volume 93.7 fL (80.0-100.0); Mean Platelet Volume 11.5 fL (7.0-11.0); Mono # (Auto) 0.9 th/mm3 (0.0-0.9); Mono % (Auto) 7.2 % (0.0-8.0); Neut # (Auto) 10.5 th/mm3 (1.8-7.7); Neut % (Auto) 85.6 % (16.0-70.0); Platelet Count 49 th/mm3 (150-450); Red Blood Count 2.75 mil/mm3 (4.50-5.90); Red Cell Distribution Width 16.3 % (11.6-17.2); White Blood Count 12.3 th/mm3 (4.0-11.0)
[2018-01-24 06:30] LABS: Albumin 2.4 g/dL (3.4-5.0); Anion Gap 10 meq/L (5-15); Aspartate Aminotransferase 48 U/L (15-37); Blood Urea Nitrogen 23 mg/dL (7-18); Calcium 8.4 mg/dL (8.5-10.1); Carbon Dioxide 24.9 meq/L (21.0-32.0); Chloride 102 meq/L (98-107); Glomerular Filtration Rate 44 mL/min (>89); Glucose,Random 145 mg/dL (74-106); Potassium 4.3 meq/L (3.5-5.1); Sodium 137 meq/L (136-145)
[2018-01-24 06:31] LABS: Alanine Aminotransferase 39 U/L (12-78)
[2018-01-24 06:33] LABS: Alkaline Phosphatase 78 U/L (45-117); Total Protein 6.7 g/dL (6.4-8.2)
--- NOTE | 2018-01-24 07:30 | P.PNNEU ---
Subjective Subjective Comments: pain much better after steroids Active Medications: Active Medications Acetaminophen (Tylenol) 650 mg PO Q6H PRN PRN Reason: FEVER > 100.4 F Last Admin: 01/22/18 23:55 Dose: 650 mg Al Hydroxide/Mg Hydroxide (Milk Of Magnesia Liq) 30 ml PO Q12H PRN PRN Reason: Mild Constipation Last Admin: 01/23/18 20:34 Dose: 30 ml Bisacodyl (Dulcolax Supp) 10 mg RECTAL DAILY PRN PRN Reason: SEVERE CONSITIPATION Budesonide/Formoterol Fumarate (Symbicort 160/4.5 Mcg Inh) 2 puff INH BID [facility] Last Admin: 01/23/18 20:39 Dose: 2 puff Clonidine HCl (Catapres) 0.1 mg PO Q6H PRN PRN Reason: SEE LABEL COMMENTS Last Admin: 01/22/18 09:45 Dose: 0.1 mg Folic Acid (Folic Acid) 1 mg PO DAILY [facility] Last Admin: 01/23/18 08:55 Dose: 1 mg Argatroban 250 mg/ Sodium (Chloride) 250 mls @ 0 mls/hr IV.CONT TITRATE PRN; Protocol PRN Reason: Per Protocol Last Titration: 01/24/18 06:00 Dose: Infused Sodium Chloride (Ns Inj) 1,000 mls @ 0 mls/hr IV.SIG BOLUS [facility] Last Infusion: 01/21/18 18:07 Dose: Infused Vancomycin HCl 1,000 mg/ (Sodium Chloride) 250 mls @ 250 mls/hr IV.SIG Q24H [facility] Last Infusion: 01/23/18 13:36 Dose: Infused Dextrose/Sodium Chloride (D5w/1/2 Ns Inj) 1,000 mls @ 80 mls/hr IV.CONT .[id number] [facility] Last Infusion: 01/24/18 06:15 Dose: 80 mls/hr Cefepime HCl 2,000 mg/ Sodium (Chloride) 100 mls @ 200 mls/hr IV.SIG Q12H [facility] Last Infusion: 01/24/18 01:30 Dose: Infused Lactulose (Lactulose Liq) 30 ml PO DAILY PRN PRN Reason: SEVERE CONSITIPATION Metoprolol Tartrate (Lopressor) 25 mg PO BID [facility] Last Admin: 01/23/18 20:34 Dose: 25 mg Miscellaneous Information (Misc Pharmacy Ordered Lab Info) 0 each OTHER ONCE ONE Stop: 01/24/18 12:46 Morphine Sulfate (Morphine Inj) 4 mg IV.PUSH Q3H PRN PRN Reason: BREAKTHROUGH PAIN Last Admin: 01/23/18 20:39 Dose: 4 mg Naloxone HCl (Narcan Inj) 0.4 mg IV.PUSH UNSCH PRN PRN Reason: SEE LABEL COMMENTS Oxycodone HCl (Roxicodone) 10 mg PO Q4H PRN PRN Reason: PAIN SCALE 6 TO 10 Last Admin: 01/24/18 03:24 Dose: 10 mg Pantoprazole Sodium (Protonix) 40 mg PO DAILY [facility] Last Admin: 01/23/18 08:55 Dose: 40 mg Pharmacy Profile Note (Vancomycin Consult Pharmacy) 1 each OTHER UNSCH PRN PRN Reason: Pharmacy to dose Pregabalin (Lyrica) 75 mg PO BID [facility] Last Admin: 01/23/18 20:34 Dose: 75 mg Sennosides (Senokot) 17.2 mg PO Q12H PRN PRN Reason: Moderate Constipation Last Admin: 01/21/18 22:30 Dose: 17.2 mg Sodium Chloride (Ns Flush) 2 ml IV.FLUSH PRN PRN PRN Reason: FLUSH AFTER USING IV ACCESS Last Admin: 01/20/18 20:43 Dose: 2 ml Temazepam (Restoril) 15 mg PO HS PRN PRN Reason: INSOMNIA Last Admin: 01/23/18 22:45 Dose: 15 mg Allergies/Adverse Reactions: Allergies Allergy/AdvReac Type Severity Reaction Status Date / Time No Known Allergies Allergy Unverified 01/17/18 11:06 Physical Exam Vital signs: Vital Signs 01/23/18 08:00 01/23/18 10:27 01/23/18 12:00 Temperature 98.0 F 98.1 F Pulse Rate 82 80 Respiratory Rate 20 20 Blood Pressure 179/84 H 126/62 Pulse Oximetry 96 94 L 95 01/23/18 16:00 01/23/18 20:00 01/23/18 23:18 Temperature 98.2 F 96.5 F L 98.3 F Pulse Rate 88 88 70 Respiratory Rate 21 18 18 Blood Pressure 159/82 H 127/76 143/78 H Pulse Oximetry 92 L 95 92 L 01/24/18 01:19 01/24/18 03:34 Temperature 97.2 F L Pulse Rate 70 Respiratory Rate 18 Blood Pressure 120/77 Pulse Oximetry 92 L 93 L Intake & Output 01/23/18 01/24/18 01/24/18 18:59 06:59 18:59 Intake Total 2980 / 2980 2199.2 / 2199.2 Output Total 680 / 680 Balance 2980 / 2980 1519.2 / 1519.2 Weight 71.8 kg Intake: IV 2500 / 2500 1399.2 / 1399.2 Novastan Inj 250 MG In NS Inj 250 / 250 99.2 / 99.2 247.5 ML @ Per Protocol IV.CONT TITRATE PRN Rx#:[id number] D5W//2 NS Inj 1,000 ML @ 80 2000 / 2000 1200 / 1200 mls/hr IV.CONT .[id number] [facility] Rx# :[id number] Maxipime Inj 2,000 MG In NS Inj 100 / 100 100 ML @ 200 mls/hr IV.SIG Q12H [facility] Rx#:[id number] Vancomycin Inj 1,000 MG In NS 250 / 250 Inj 250 ML @ 250 mls/hr IV.SIG Q24H [facility]NE Rx#:[id number] Oral 480 / 480 800 / 800 Output: Urine 680 / 680 Other: # Voids 2 4 Narrative: left ta now 2/5 a bit better Objective Laboratory Results - last 24 hr 01/17/18 01/18/18 01/23/18 20:59 13:15 07:16 WBC 12.5 H RBC 3.03 L Hgb 9.5 L Hct 28.0 L MCV 92.4 MCH 31.3 MCHC 33.8 RDW 16.7 Plt Count 46 L D MPV 9.7 Prelim Diff (Auto) Slide review pending Neut % (Auto) 72.5 H Lymph % (Auto) 10.2 [place] % (Auto) 10.4 H Eos % (Auto) 6.2 H Baso % (Auto) 0.7 Neut # (Auto) 9.1 H Lymph # (Auto) 1.3 [place] # (Auto) 1.3 H Eos # (Auto) 0.8 H Baso # (Auto) 0.1 WBC Differential . Diff Scan Auto diff confirmed Differential Comment . Platelet Estimate Low L Platelet Morphology Normal APTT Sodium Potassium Chloride Carbon Dioxide Anion Gap BUN Creatinine Estimated GFR Random Glucose Calcium Phosphorus Total Bilirubin AST ALT Alkaline Phosphatase Total Creatine Kinase CK-MB (CK-2) CK-MB (CK-2) % Total Protein Albumin Thiamine 136 Methylmalonic Acid 0.18 0.26 Complement C3 Complement C4 01/23/18 01/23/18 01/24/18 07:16 07:16 04:20 WBC 12.3 H RBC 2.75 L Hgb 8.5 L Hct 25.8 L MCV 93.7 MCH 30.8 MCHC 32.9 RDW 16.3 Plt Count 49 L MPV 11.5 H Prelim Diff (Auto) Slide review pending Neut % (Auto) 85.6 H Lymph % (Auto) 6.6 L [place] % (Auto) 7.2 Eos % (Auto) 0.1 Baso % (Auto) 0.5 Neut # (Auto) 10.5 H Lymph # (Auto) 0.8 L [place] # (Auto) 0.9 Eos # (Auto) 0.0 Baso # (Auto) 0.1 WBC Differential Diff Scan Differential Comment . Platelet Estimate Platelet Morphology APTT Sodium 137 Potassium 4.2 Chloride 104 Carbon Dioxide 25.2 Anion Gap 8 BUN 23 H Creatinine 1.84 H Estimated GFR 37 L Random Glucose 118 H Calcium 8.2 L Phosphorus 2.9 Total Bilirubin 0.6 AST 50 H ALT 38 Alkaline Phosphatase 76 Total Creatine Kinase 520 H CK-MB (CK-2) 6.4 H CK-MB (CK-2) % 1.2 Total Protein 6.6 Albumin 2.3 L Thiamine Methylmalonic Acid Complement C3 140 Complement C4 01/24/18 01/24/18 04:20 04:20 WBC RBC Hgb Hct MCV MCH MCHC RDW Plt Count MPV Prelim Diff (Auto) Neut % (Auto) Lymph % (Auto) [place] % (Auto) Eos % (Auto) Baso % (Auto) Neut # (Auto) Lymph # (Auto) [place] # (Auto) Eos # (Auto) Baso # (Auto) WBC Differential Diff Scan Differential Comment Platelet Estimate Platelet Morphology APTT 59.4 H Sodium 137 Potassium 4.3 Chloride 102 Carbon Dioxide 24.9 Anion Gap 10 BUN 23 H Creatinine 1.59 H Estimated GFR 44 L Random Glucose 145 H Calcium 8.4 L Phosphorus Total Bilirubin 0.5 AST 48 H ALT 39 Alkaline Phosphatase 78 Total Creatine Kinase CK-MB (CK-2) CK-MB (CK-2) % Total Protein 6.7 Albumin 2.4 L Thiamine Methylmalonic Acid Complement C3 Complement C4 Microbiology 01/21/18 10:25 Aerobic Blood Culture - Preliminary Blood - Peripheral No growth in 2 days Anaerobic Blood Culture - Preliminary No growth in 2 days 01/21/18 10:14 Aerobic Blood Culture - Preliminary Blood - Peripheral No growth in 2 days Anaerobic Blood Culture - Preliminary No growth in 2 days Review/Management - Review/Management Plan: D/W DR LING TRIAL OF DDECADRON 4MG QID MRI RPT NOT YET DONE PT EVAL cta showed some blockages but does have flow in ble arterial dr hannah not convinced the thoracic abn is met could be vascular? i dw neurorad check cpk labs hit rx per dr pablo hernandez recently fu echo some infarct in kidney ? 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 will have to repeat mri t spine concerned with new weak left ankle 01/22/18 mri t spine no change looks more peripheral and not in cord neurorads did not think this was a cord avm vascular feels sx not from aortic dz with the left foot drop need emg and worry about carcinomatous meningits needs LP when able i will dw heme about plts try lyrica and neurontin not helping 01/23/18 no major change emg pend try decadron check cpk similar sx to a diabetic amyotrophy picture check mri of the ls plexus and pelvis 01/24/18 pain much better plt 49k should be able to do LP soon maybe a llittle stronger left ta ? aseptic necrosis hip so will hold further steroids and please have heme order LP jermaine when cleared plexus mri neg
[2018-01-24 08:00] LABS: Platelet Morphology Normal (Normal)
--- NOTE | 2018-01-24 08:53 | P.PNFP ---
Subjective Interval history: Review of systems: reports some mild confusion noted intermittently yesterday, timewise appears to have related to opioid dosing, pt ok at this time per <Stephanie Calzada - 01/24/18 11:38> Pt seen and examined this morning. No acute events overnight. Afebrile overnight and vitals stable. States pain was much improved yesterday and overnight. Didn't require any IV pain medication. Denies any new symptoms today. Pain is still mainly in left lower leg. States he has had chronic right hip pain, but nothing recently. Denies any history of falls/fracture. Denies any chest pain, SOB, abdominal pain. <ChristenRichard rodriguez - 01/24/18 08:52> Results - Labs Result diagrams: 01/24/18 04:20 01/24/18 04:20 <Stephanie Calzada - 01/24/18 11:38> Abnormal lab results 01/24/18 01/24/18 01/24/18 Range/Units 04:20 04:20 04:20 WBC 12.3 H (4.0-11.0) th/mm3 RBC 2.75 L (4.50-5.90) mil/mm3 Hgb 8.5 L (13.0-17.0) gm/dL Hct 25.8 L (39.0-51.0) % Plt Count 49 L (150-450) th/mm3 MPV 11.5 H (7.0-11.0) fL Neut % (Auto) 85.6 H (16.0-70.0) % Lymph % (Auto) 6.6 L (9.0-44.0) % Neut # (Auto) 10.5 H (1.8-7.7) th/mm3 Lymph # (Auto) 0.8 L (1.0-4.8) th/mm3 Platelet Estimate Low L (Normal) APTT 59.4 H (24.3-30.1) sec BUN 23 H (7-18) mg/dL Creatinine 1.59 H (0.60-1.30) mg/dL Estimated GFR 44 L (>89) mL/min Random Glucose 145 H (74-106) mg/dL Calcium 8.4 L (8.5-10.1) mg/dL AST 48 H (15-37) U/L Albumin 2.4 L (3.4-5.0) g/dL Short CBC 01/24/18 Range/Units 04:20 WBC 12.3 H (4.0-11.0) th/mm3 Hgb 8.5 L (13.0-17.0) gm/dL Hct 25.8 L (39.0-51.0) % Plt Count 49 L (150-450) th/mm3 BMP 01/24/18 04:20 Sodium 137 Potassium 4.3 Chloride 102 Carbon Dioxide 24.9 BUN 23 H Creatinine 1.59 H Calcium 8.4 L Liver Function 01/24/18 Range/Units 04:20 Total Bilirubin 0.5 (0.2-1.0) mg/dL AST 48 H (15-37) U/L ALT 39 (12-78) U/L Alkaline Phosphatase 78 (45-117) U/L Albumin 2.4 L (3.4-5.0) g/dL <Stephanie Calzada - 01/24/18 11:38> Abnormal lab results 01/23/18 01/23/18 01/23/18 Range/Units 07:16 07:16 07:16 WBC (4.0-11.0) th/mm3 RBC (4.50-5.90) mil/mm3 Hgb (13.0-17.0) gm/dL Hct (39.0-51.0) % Plt Count (150-450) th/mm3 MPV (7.0-11.0) fL Neut % (Auto) (16.0-70.0) % Lymph % (Auto) (9.0-44.0) % Neut # (Auto) (1.8-7.7) th/mm3 Lymph # (Auto) (1.0-4.8) th/mm3 Platelet Estimate Low L (Normal) APTT (24.3-30.1) sec BUN 23 H (7-18) mg/dL Creatinine 1.84 H (0.60-1.30) mg/dL Estimated GFR 37 L (>89) mL/min Random Glucose 118 H (74-106) mg/dL Calcium 8.2 L (8.5-10.1) mg/dL AST 50 H (15-37) U/L Total Creatine Kinase 520 H (39-308) U/L CK-MB (CK-2) 6.4 H (0.5-3.6) ng/mL Albumin 2.3 L (3.4-5.0) g/dL 01/24/18 01/24/18 01/24/18 Range/Units 04:20 04:20 04:20 WBC 12.3 H (4.0-11.0) th/mm3 RBC 2.75 L (4.50-5.90) mil/mm3 Hgb 8.5 L (13.0-17.0) gm/dL Hct 25.8 L (39.0-51.0) % Plt Count 49 L (150-450) th/mm3 MPV 11.5 H (7.0-11.0) fL Neut % (Auto) 85.6 H (16.0-70.0) % Lymph % (Auto) 6.6 L (9.0-44.0) % Neut # (Auto) 10.5 H (1.8-7.7) th/mm3 Lymph # (Auto) 0.8 L (1.0-4.8) th/mm3 Platelet Estimate Low L (Normal) APTT 59.4 H (24.3-30.1) sec BUN 23 H (7-18) mg/dL Creatinine 1.59 H (0.60-1.30) mg/dL Estimated GFR 44 L (>89) mL/min Random Glucose 145 H (74-106) mg/dL Calcium 8.4 L (8.5-10.1) mg/dL AST 48 H (15-37) U/L Total Creatine Kinase (39-308) U/L CK-MB (CK-2) (0.5-3.6) ng/mL Albumin 2.4 L (3.4-5.0) g/dL Short CBC 01/24/18 Range/Units 04:20 WBC 12.3 H (4.0-11.0) th/mm3 Hgb 8.5 L (13.0-17.0) gm/dL Hct 25.8 L (39.0-51.0) % Plt Count 49 L (150-450) th/mm3 BMP 01/23/18 01/24/18 07:16 04:20 Sodium 137 137 Potassium 4.2 4.3 Chloride 104 102 Carbon Dioxide 25.2 24.9 BUN 23 H 23 H Creatinine 1.84 H 1.59 H Calcium 8.2 L 8.4 L Cardiac Enzymes 01/23/18 Range/Units 07:16 Total Creatine Kinase 520 H (39-308) U/L CK-MB (CK-2) 6.4 H (0.5-3.6) ng/mL Liver Function 01/23/18 01/24/18 Range/Units 07:16 04:20 Total Bilirubin 0.6 0.5 (0.2-1.0) mg/dL AST 50 H 48 H (15-37) U/L ALT 38 39 (12-78) U/L Alkaline Phosphatase 76 78 (45-117) U/L Albumin 2.3 L 2.4 L (3.4-5.0) g/dL <Richard Kuo - 01/24/18 08:52> - Imaging Impressions Sacrum/Coccyx MRI 01/23/18 00:00 CONCLUSION: Negative MRI of the sacrum. Avascular necrosis right femoral head. MR of the hip is recommended if clinically indicated <Stephanie Calzada - 01/24/18 11:38> Impressions Sacrum/Coccyx MRI 01/23/18 00:00 CONCLUSION: Negative MRI of the sacrum. Avascular necrosis right femoral head. MR of the hip is recommended if clinically indicated <Richard Kuo - 01/24/18 08:52> Physical Exam Vital signs: Vital Signs 01/23/18 12:00 01/23/18 16:00 01/23/18 20:00 Temperature 98.1 F 98.2 F 96.5 F L Pulse Rate 80 88 88 Respiratory Rate 20 21 18 Blood Pressure 126/62 159/82 H 127/76 Pulse Oximetry 95 92 L 95 01/23/18 23:18 01/24/18 01:19 01/24/18 03:34 Temperature 98.3 F 97.2 F L Pulse Rate 70 70 Respiratory Rate 18 18 Blood Pressure 143/78 H 120/77 Pulse Oximetry 92 L 92 L 93 L 01/24/18 08:00 Temperature 97.7 F Pulse Rate 73 Respiratory Rate 18 Blood Pressure 140/97 H Pulse Oximetry 98 Intake & Output 09/18/18 09/19/18 09/19/18 18:59 06:59 18:59 Intake Total 2980 / 2980 2199.2 / 2199.2 Output Total 680 / 680 Balance 2980 / 2980 1519.2 / 1519.2 Weight 71.8 kg Intake: IV 2500 / 2500 1399.2 / 1399.2 Novastan Inj 250 MG In NS Inj 250 / 250 99.2 / 99.2 247.5 ML @ Per Protocol IV.CONT TITRATE PRN Rx#:[id number] D5W/1/2 NS Inj 1,000 ML @ 80 2000 / 2000 1200 / 1200 mls/hr IV.CONT .[id number] [facility] Rx# :[id number] Maxipime Inj 2,000 MG In NS Inj 100 / 100 100 ML @ 200 mls/hr IV.SIG Q12H [facility] Rx#:[id number] Vancomycin Inj 1,000 MG In NS 250 / 250 Inj 250 ML @ 250 mls/hr IV.SIG Q24H [facility] Rx#:[id number] Oral 480 / 480 800 / 800 Output: Urine 680 / 680 Other: # Voids 2 4 <Stephanie Calzada - 01/24/18 11:38> Vital Signs 01/23/18 10:27 01/23/18 12:00 01/23/18 16:00 Temperature 98.1 F 98.2 F Pulse Rate 80 88 Respiratory Rate 20 21 Blood Pressure 126/62 159/82 H Pulse Oximetry 94 L 95 92 L 01/23/18 20:00 01/23/18 23:18 01/24/18 01:19 Temperature 96.5 F L 98.3 F Pulse Rate 88 70 Respiratory Rate 18 18 Blood Pressure 127/76 143/78 H Pulse Oximetry 95 92 L 92 L 01/24/18 03:34 01/24/18 08:00 Temperature 97.2 F L 97.7 F Pulse Rate 70 73 Respiratory Rate 18 18 Blood Pressure 120/77 140/97 H Pulse Oximetry 93 L 98 Intake & Output 01/23/18 01/24/18 01/24/18 18:59 06:59 18:59 Intake Total 2980 / 2980 2199.2 / 2199.2 Output Total 680 / 680 Balance 2980 / 2980 1519.2 / 1519.2 Weight 71.8 kg Intake: IV 2500 / 2500 1399.2 / 1399.2 Novastan Inj 250 MG In NS Inj 250 / 250 99.2 / 99.2 247.5 ML @ Per Protocol IV.CONT TITRATE PRN Rx#:[id number] D5W/1/2 NS Inj 1,000 ML @ 80 2000 / 2000 1200 / 1200 mls/hr IV.CONT .[id number] [facility] Rx# :[id number] Maxipime Inj 2,000 MG In NS Inj 100 / 100 100 ML @ 200 mls/hr IV.SIG Q12H [facility] Rx#:[id number] Vancomycin Inj 1,000 MG In NS 250 / 250 Inj 250 ML @ 250 mls/hr IV.SIG Q24H [facility] Rx#:[id number] Oral 480 / 480 800 / 800 Output: Urine 680 / 680 Other: # Voids 2 4 <Richard Kuo - 01/24/18 08:52> Narrative: BLE feet cool to touch, some mottling noted on distal plantar R>L foot at time of my exam. Dopplers not repeated (just performed by IR). MS A&O, converses comfortably with providers and spouse. No overt confusion, speech fluent, appears to comprehend therapeutic options presented, asks appropriate questions <Stephanie Calzada - 01/24/18 11:38> GENERAL: Thin appearing male lying in bed in no acute distress. SKIN: Warm and dry. CARDIOVASCULAR: Regular rate and rhythm without obvious murmurs, gallops, or rubs. RESPIRATORY: Prolonged inspiratory and expiratory phase. Decreased breath sounds of the bilateral lower lobes. No wheezes or crackles. No increased work of breathing at this time. Thoracotomy incision without sign of infection. GASTROINTESTINAL: Abdomen soft, non-tender, nondistended with positive bowel sounds. MUSCULOSKELETAL: No cyanosis or edema. Continued decreased sensation over left posterior calf and left lateral foot, unchanged from previous exams. Minimal tenderness to calves today. Bilateral feet warm to touch. NEURO/PSYCH: Afocal. Awake, alert, and oriented x3. Normal speech and judgement. <Richard Kuo - 01/24/18 08:52> Assessment and Plan - Assessment (1) SIRS (systemic inflammatory response syndrome) Code(s): R65.10 - Systemic inflammatory response syndrome (SIRS) of non- infectious origin without acute organ dysfunction Status: Acute (2) EVON (acute kidney injury) Code(s): N17.9 - Acute kidney failure, unspecified Status: Acute (3) Pain in both lower legs Code(s): M79.661 - Pain in right lower leg; M79.662 - Pain in left lower leg Status: Acute (4) Heparin induced thrombocytopenia Code(s): D75.82 - Heparin induced thrombocytopenia (HIT) Status: Acute (5) Metastatic primary lung cancer Code(s): C34.90 - Malignant neoplasm of unspecified part of unspecified bronchus or lung Status: Acute (6) Thrombosis of right saphenous vein Code(s): I82.811 - Embolism and thrombosis of superficial veins of right lower extremity Status: Acute (7) Anemia Code(s): D64.9 - Anemia, unspecified Status: Acute (8) Avascular necrosis of hip Code(s): M87.059 - Idiopathic aseptic necrosis of unspecified femur Status: Acute (9) Atrial fibrillation Code(s): I48.91 - Unspecified atrial fibrillation Status: Acute (10) Nutrition, metabolism, and development symptoms Code(s): R63.8 - Other symptoms and signs concerning food and fluid intake Status: Acute <Stephanie Calzada - 01/24/18 11:38> (1) SIRS (systemic inflammatory response syndrome) Code(s): R65.10 - Systemic inflammatory response syndrome (SIRS) of non- infectious origin without acute organ dysfunction Status: Acute Plan: Patient currently meeting SIRS criteria with low grade temps & leukocytosis. No obvious source of infection, however inflammatory response could be related to malignancy vs thrombosis. CBC: Stable WBC and neutrophils Chest x-ray (01/20): Stable from admission Urinalysis (01/20): Negative leukocyte esterase and nitrite, large occult blood, 100 protein, rare bacteria; otherwise negative Lactic acid 0.7; ESR 66 -Has been afebrile the last 24 hours -Blood cultures 01/21/18: NGTD -Started on antibiotics -Vancomycin (01/21 - ) -Cefepime 2g 24H (01/21 - ) (2) EVON (acute kidney injury) Code(s): N17.9 - Acute kidney failure, unspecified Status: Acute Plan: Increasing serum creatinine during hospitalization. Admitted with Cr of 1.2. CMP from 06/28/17 with Cr of 0.95 Aortic CTA shows infarct of inferior pole of right kidney of unknown age. Possibly related to contrast administration during hospitalization Cr improved to 1.59 today. -Monitor I/Os -Monitor BMP -Avoid nephrotoxic agents -Avoid further contrast studies if able -Renal consulted -Suspect contrast nephrotoxicity -Serum complements wnl; urine eosinophils negative -Continue IV hydration of D5-1/2NS @ 80mls/hr (3) Pain in both lower legs Code(s): M79.661 - Pain in right lower leg; M79.662 - Pain in left lower leg Status: Acute Plan: Patient presented after worsening pain and weakness in bilateral legs. Upon further discussion with patient, has signs and symptoms of peripheral arterial disease. Also with associated neuropathy and weakness upon admission. 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 -Continue Lyrica -Recommend LP, holding due to thrombocytopenia -Ordered Decadron 10mg IV once -EMG pending -Vascular consulted-appreciate recs -Non-candidate for revascularization at this time due to thrombocytopenia as well as his metastatic disease -Does not think symptoms are vascular in origin -Re-consulted by heme/onc -Heme/onc consulted -Treating HIT with argatroban -PT evaluating -recommend home health -Pain management -Changing oxycodone--> Cross[place] 10 q8H PRN -Decreased morphine to 2mg q12H PRN, may increase frequency if needed (4) Heparin induced thrombocytopenia Code(s): D75.82 - Heparin induced thrombocytopenia (HIT) Status: Acute Plan: Postop from lobectomy and s/p heparin 9 days on admission Heparin-induced thrombocytopenia antibody positive Platelets trending up No transfusion recommended at this time due to possibility of further coagulation Hold all heparin forms Heme/onc consulted-HIT with thrombosis -On argatroban gtt (5) Metastatic primary lung cancer Code(s): C34.90 - Malignant neoplasm of unspecified part of unspecified bronchus or lung Status: Acute Plan: Status post chemo in November, status post lobectomy Recent PET scans negative MRI spine shows possible mets Repeat brain MRI with no acute change -Management per oncology team; discussing case with patients Oncologist in [place] , Dr. Dillard -Regarding possible drop mets -Unsure of etiology at this time -Radiation oncology consulted -No therapy at this time due to low platelets (6) Thrombosis of right saphenous vein Code(s): I82.811 - Embolism and thrombosis of superficial veins of right lower extremity Status: Acute Plan: Lower extremity superficial vein, generally benign and self-limited however a larger vein is involved in this case Caution with propagation into the DVT system and PE possibility Likely due to abnormal coagulation at this time may repeat duplex ultrasound with further clinical signs Elevation Warm and cool compresses Compression stockings Pain management (7) Anemia Code(s): D64.9 - Anemia, unspecified Status: Acute Plan: No history of anemia per patient Likely chronic anemia, patient at high risk for bleeding due to thrombocytopenia Unsure of the exact cause, chemotherapy vs recent surgery vs chronic anemia (8) Avascular necrosis of hip Code(s): M87.059 - Idiopathic aseptic necrosis of unspecified femur Status: Acute Plan: MRI of sacrum revealed findings of avascular necrosis involving the right femoral head. No collapse. Pt reports chronic hip pain, nothing acute Unsure etiology Did receive IV steroids on 01/23 -Will hold further steroids at this time -Continue to monitor (9) Atrial fibrillation Code(s): I48.91 - Unspecified atrial fibrillation Status: Acute Plan: History of Afib. Controlled rate Echo shows EF of 50-55% Segmental wall motion abnormalities with hypokinesis No episodes of Afib during admission, d/c Telemetry Continue metoprolol (10) Nutrition, metabolism, and development symptoms Code(s): R63.8 - Other symptoms and signs concerning food and fluid intake Status: Acute Plan: Fluids: D5-1/2NS @ 80mls/hr Electrolytes: Follow-up BMP and replete as needed Nutrition: Regular diet DVT prophylaxis: Holding all heparin products, argatroban gtt Incentive spirometry <Richard Kuo - 01/24/18 10:35> - Assessment and Plan 62 y/o male with history of lung cancer with mets to brain, hypertension, atrial fibrillation presented on admission with bilateral leg pain/weakness. Admitted for workup. 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 Leg pain being worked up with etiology of vascular vs neurologic vs infectious vs other. Currently on argatroban gtt and working up leg pain further with pain management. <Richard Kuo - 01/24/18 08:52> Discharge Planning: Pending improvement of platelets and workup of leg pain. PT recommends home health upon discharge Advanced Directives discussed with pt on 01/22. Paperwork completed. Pt's is Health care surrogate. Confirmed full code status and <Richard Kuo - 01/24/18 08:52> Attestation Attestation: Patient seen and examined today, case discussed with Dr. Kuo. Additionally discussed case with Gold Veras and Danae. Witnessed as Pt and were counseled re: planned vascular procedure. Will adjust opioid therapy today (reduction) as tolerated. Pt at risk for perioperative MS changes (opioids , frailty, Hx [employer] UT[employer] P[employer] mets, etc...). Will cont to monitor and optimize environment to mitigate. The exam, history, and the medical decision-making described in the above note were completed with the assistance of the resident physician. I reviewed and agree with the findings presented. I attest that I had a face-to- face encounter with the patient on the same day, and personally performed an assessment and documented findings in the medical record. <Stephanie Calzada - 01/24/18 11:38> <Richard Kuo J - Last Filed: 01/24/18 10:35> (7) Anemia Qualifiers: Anemia type: bone marrow failure Bone marrow failure anemia type: pancytopenia, antineoplastic chemotherapy-induced Qualified Code(s): D61.810 - Antineoplastic chemotherapy induced pancytopenia; T45.1X5A - Adverse effect of antineoplastic and immunosuppressive drugs, initial encounter (8) Avascular necrosis of hip Qualifiers: Laterality: right Qualified Code(s): M87.051 - Idiopathic aseptic necrosis of right femur <Stephanie Calzada - Last Filed: 01/24/18 11:38> (7) Anemia Qualifiers: Qualified Code(s): D61.810 - Antineoplastic chemotherapy induced pancytopenia ; T45.1X5A - Adverse effect of antineoplastic and immunosuppressive drugs, initial encounter (8) Avascular necrosis of hip Qualifiers: Qualified Code(s): M87.051 - Idiopathic aseptic necrosis of right femur <Richard Kuo - Last Filed: 01/24/18 10:35> (7) Anemia Qualifiers: Anemia type: bone marrow failure Bone marrow failure anemia type: pancytopenia, antineoplastic chemotherapy-induced Qualified Code(s): D61.810 - Antineoplastic chemotherapy induced pancytopenia; T45.1X5A - Adverse effect of antineoplastic and immunosuppressive drugs, initial encounter (8) Avascular necrosis of hip Qualifiers: Laterality: right Qualified Code(s): M87.051 - Idiopathic aseptic necrosis of right femur <Stephanie Calzada - Last Filed: 01/24/18 11:38> (7) Anemia Qualifiers: Qualified Code(s): D61.810 - Antineoplastic chemotherapy induced pancytopenia ; T45.1X5A - Adverse effect of antineoplastic and immunosuppressive drugs, initial encounter (8) Avascular necrosis of hip Qualifiers: Qualified Code(s): M87.051 - Idiopathic aseptic necrosis of right femur
[2018-01-24] MEDS: Folic Acid 1 MG Tablet PO SCH (09:14)
[2018-01-24] MEDS: Pregabalin 75 MG Capsule PO SCH ×2 (09:14→20:53)
[2018-01-24] MEDS: Budesonide-Formoterol 160/4.5 MCG 6 GM Inhaler INH SCH ×2 (09:15→20:53)
[2018-01-24] MEDS: Metoprolol Tartrate 25 MG Tablet PO SCH ×2 (09:15→20:53)
[2018-01-24] MEDS ORDERED: Morphine Sulfate Inj 2 MG/ML Vial IV.PUSH PRN (09:42)
[2018-01-24] MEDS ORDERED: Pharmacy Ordered Lab Info OTHER ONE (12:45)
--- NOTE | 2018-01-24 13:00 | P.PNVS ---
Subjective Subjective/Hospital Course: Patient seen and full consult dictated We will follow Thanks J 01/24/[address] Veras, interventional radiology and we jointly examined the patient and spoke to the and the patient. For details refer to my original consult from last week. On physical exam patient has more prominent changes as far as the decrease in blood flow in both feet. He still has dopplerable femoral and popliteal pulses as well as weak dorsalis pedis posterior tibial on the left and only posterior tibial on the right. In comparison to last week and this Monday, indeed toes are more dusky appearing with some cyanotic hue especially the right foot. Capillary refill is quite decreased at this time. There is no question that patient is throwing embolic material and showering microthrombi and micro emboli distally. Renal function is somewhat improved which is helpful and platelet count is slowly rising. This is a very complex situation and remedies are limited Patient is not a candidate for aortobifemoral bypass for this is a major surgery which patient would not sustain very well. The other option is placing iliac covered stents to push the clot aside. Unfortunately this would allow for aortic thrombotic material to flush downward unimpeded and with essentially worsened the situation. Therefore after discussing this with patient and family and then between Dr. Veras, Dr. Calzada and myself we agreed on following hybrid approach Patient will have axillobifemoral bypass in order to improve the blood flow to the legs and bypass the occluded area of aorta and iliac arteries. At the same , time Dr. Veras will coil the remaining proximal iliac flow in order to prevent clots from flushing down further. Between these 2 patient has the best chance to maintain the flow to the legs and minimize the chance of further distal embolization. Unfortunately patient does have metastatic lung cancer and his longevity is predicated upon this but also possible complications from the above-noted procedures for he will continue to have a low level consumption coagulopathy and may form clots in his axillobifemoral graft or in the distal [place] vessels. He will need to remain on full anticoagulation for the rest of his life probably go home on either factor VIIa inhibitor or thrombin inhibitor. I will also offer to the patient the option of going back to [place] where he already had lung surgery and brain surgery for they have established trust with that group of physicians and surgeons. Otherwise, patient is on schedule for tomorrow for axillobifemoral bypass and coiling of the iliacs. Discussed with hematology as well. I have extensively discussed the risks and benefits of the surgery with patient and his as well as potential risks including loss of both extremities and . Objective Vital Signs / I&O: Vital Signs 01/23/18 16:00 01/23/18 20:00 01/23/18 23:18 Temperature 98.2 F 96.5 F L 98.3 F Pulse Rate 88 88 70 Respiratory Rate 21 18 18 Blood Pressure 159/82 H 127/76 143/78 H Pulse Oximetry 92 L 95 92 L 01/24/18 01:19 01/24/18 03:34 01/24/18 08:00 Temperature 97.2 F L 97.7 F Pulse Rate 70 73 Respiratory Rate 18 18 Blood Pressure 120/77 140/97 H Pulse Oximetry 92 L 93 L 98 Intake & Output 01/23/18 01/24/18 01/24/18 18:59 06:59 18:59 Intake Total 2980 / 2980 2199.2 / 2199.2 Output Total 680 / 680 Balance 2980 / 2980 1519.2 / 1519.2 Weight 71.8 kg Intake: IV 2500 / 2500 1399.2 / 1399.2 Novastan Inj 250 MG In NS Inj 250 / 250 99.2 / 99.2 247.5 ML @ Per Protocol IV.CONT TITRATE PRN Rx#:[id number] D5W// NS Inj 1,000 ML @ 80 2000 / 2000 1200 / 1200 mls/hr IV.CONT .[id number] [facility] Rx# :[id number] Maxipime Inj 2,000 MG In NS Inj 100 / 100 100 ML @ 200 mls/hr IV.SIG Q12H [facility] Rx#:[id number] Vancomycin Inj 1,000 MG In NS 250 / 250 Inj 250 ML @ 250 mls/hr IV.SIG Q24H [facility] Rx#:[id number] Oral 480 / 480 800 / 800 Output: Urine 680 / 680 Other: # Voids 2 4 Laboratory Results - last 24 hr 01/24/18 01/24/18 01/24/18 04:20 04:20 04:20 WBC 12.3 H RBC 2.75 L Hgb 8.5 L Hct 25.8 L MCV 93.7 MCH 30.8 MCHC 32.9 RDW 16.3 Plt Count 49 L MPV 11.5 H Prelim Diff (Auto) Slide review pending Neut % (Auto) 85.6 H Lymph % (Auto) 6.6 L [place] % (Auto) 7.2 Eos % (Auto) 0.1 Baso % (Auto) 0.5 Neut # (Auto) 10.5 H Lymph # (Auto) 0.8 L [place] # (Auto) 0.9 Eos # (Auto) 0.0 Baso # (Auto) 0.1 WBC Differential . Diff Scan Auto diff confirmed Differential Comment . Platelet Estimate Low L Platelet Morphology Normal APTT 59.4 H Sodium 137 Potassium 4.3 Chloride 102 Carbon Dioxide 24.9 Anion Gap 10 BUN 23 H Creatinine 1.59 H Estimated GFR 44 L Random Glucose 145 H Calcium 8.4 L Total Bilirubin 0.5 AST 48 H ALT 39 Alkaline Phosphatase 78 Total Protein 6.7 Albumin 2.4 L Microbiology 01/21/18 10:25 Aerobic Blood Culture - Preliminary Blood - Peripheral No growth in 3 days Anaerobic Blood Culture - Preliminary No growth in 3 days 01/21/18 10:14 Aerobic Blood Culture - Preliminary Blood - Peripheral No growth in 3 days Anaerobic Blood Culture - Preliminary No growth in 3 days Impressions Sacrum/Coccyx MRI 01/23/18 00:00 CONCLUSION: Negative MRI of the sacrum. Avascular necrosis right femoral head. MR of the hip is recommended if clinically indicated
[2018-01-24] MEDS: Vancomycin Inj 1,000 MG in Sodium Chlor 0.9% Inj 250 ML IV.SIG SCH (13:31)
--- NOTE | 2018-01-24 14:53 | IR ---
EXAM DATE: 01/24/2018 2:30 PM EDT AGE/SEX: 62 years / Male INDICATIONS: Evaluate for thrombolysis of left lower extremity. HISTORY OF PRESENT ILLNESS: 62-year-old gentleman with bilateral lower extremity pain and claudicati on MEDICAL/SURGICAL HISTORY: History of metastatic lung cancer. Surgical resection of prior brain metast ases within the last year. Recent resection of a thoracic metastasis. Recent diagnosis of heparin-ind uced thrombocytopenia PHYSICAL EXAM: Very pleasant gentleman in no acute distress PULSES: Markedly diminished pedal pulses bilaterally. Some mottling of the toes, particularly on the left luis alfredo t. Decreased sensation but function is still preserved. IMAGING STUDIES: Patient's CTA was reviewed demonstrating marked irregularity and thrombosis throughout most of the in frarenal abdominal aorta. I do believe that there is a very small channel of contiguous flow to the i liacs, particularly on the left. This may actually be a source of emboli to both lower extremities. O therwise, the runoff vessels are fairly well preserved. ASSESSMENT: 62-year-old gentleman with known metastatic lung cancer history of brain metastasis, bilateral lower extremity claudication and rest pain. PLAN: 1. Very difficult situation due to the clinical restraints. Patient cannot receive TPA due to histor y of brain metastasis. Repeat CTA is probably not warranted due to some recent renal insufficiency wh ich seems to be recovering. 2. Evaluated patient with Dr. Fink that from the vascular service. Plan on an axillobifemoral b ypass. I will be in attendance for the procedure and perform retrograde embolization of the central c ommon iliac arteries bilaterally to help limit future distal embolization. TIME SPENT: 30 minutes Electronically signed by: Itz Veras MD 01/24/2018 2:51 PM EDT
--- NOTE | 2018-01-24 16:08 | P.PNONC ---
Subjective Interval history: Afebrile. Patient's last fever was on 01/23/2018 at midnight. He is lying in bed, visiting with family. He states he is still having the pain in his legs intermittently. He reports that he was seen by the vascular team and they are planning on doing surgery tomorrow. Objective Vital Signs/Intake & Output: Vital Signs 01/23/18 16:00 01/23/18 20:00 01/23/18 23:18 Temperature 98.2 F 96.5 F L 98.3 F Pulse Rate 88 88 70 Respiratory Rate 21 18 18 Blood Pressure 159/82 H 127/76 143/78 H Pulse Oximetry 92 L 95 92 L 01/24/18 01:19 01/24/18 03:34 01/24/18 08:00 Temperature 97.2 F L 97.7 F Pulse Rate 70 73 Respiratory Rate 18 18 Blood Pressure 120/77 140/97 H Pulse Oximetry 92 L 93 L 98 01/24/18 12:00 01/24/18 14:02 Temperature 98.4 F Pulse Rate 75 Respiratory Rate 18 Blood Pressure 137/64 Pulse Oximetry 95 96 Intake & Output 01/23/18 01/24/18 01/24/18 18:59 06:59 18:59 Intake Total 2980 / 2980 2199.2 / 2199.2 Output Total 680 / 680 Balance 2980 / 2980 1519.2 / 1519.2 Weight 71.8 kg Intake: IV 2500 / 2500 1399.2 / 1399.2 Novastan Inj 250 MG In NS Inj 250 / 250 99.2 / 99.2 247.5 ML @ Per Protocol IV.CONT TITRATE PRN Rx#:[id number] D5W/1/2 NS Inj 1,000 ML @ 80 2000 / 2000 1200 / 1200 mls/hr IV.CONT .[id number] [facility] Rx# :[id number] Maxipime Inj 2,000 MG In NS Inj 100 / 100 100 ML @ 200 mls/hr IV.SIG Q12H [facility] Rx#:[id number] Vancomycin Inj 1,000 MG In NS 250 / 250 Inj 250 ML @ 250 mls/hr IV.SIG Q24H [facility] Rx#:[id number] Oral 480 / 480 800 / 800 Output: Urine 680 / 680 Other: # Voids 2 4 Result Diagrams: 01/24/18 04:20 01/24/18 04:20 Laboratory Results: Laboratory Results - last 24 hr 01/24/18 01/24/18 01/24/18 04:20 04:20 04:20 WBC 12.3 H RBC 2.75 L Hgb 8.5 L Hct 25.8 L MCV 93.7 MCH 30.8 MCHC 32.9 RDW 16.3 Plt Count 49 L MPV 11.5 H Prelim Diff (Auto) Slide review pending Neut % (Auto) 85.6 H Lymph % (Auto) 6.6 L [place] % (Auto) 7.2 Eos % (Auto) 0.1 Baso % (Auto) 0.5 Neut # (Auto) 10.5 H Lymph # (Auto) 0.8 L [place] # (Auto) 0.9 Eos # (Auto) 0.0 Baso # (Auto) 0.1 WBC Differential . Diff Scan Auto diff confirmed Differential Comment . Platelet Estimate Low L Platelet Morphology Normal APTT 59.4 H Sodium 137 Potassium 4.3 Chloride 102 Carbon Dioxide 24.9 Anion Gap 10 BUN 23 H Creatinine 1.59 H Estimated GFR 44 L Random Glucose 145 H Calcium 8.4 L Total Bilirubin 0.5 AST 48 H ALT 39 Alkaline Phosphatase 78 Total Protein 6.7 Albumin 2.4 L Vancomycin Trough Bld Prod Order Comment 01/24/18 01/24/18 13:02 13:10 WBC RBC Hgb Hct MCV MCH MCHC RDW Plt Count MPV Prelim Diff (Auto) Neut % (Auto) Lymph % (Auto) [place] % (Auto) Eos % (Auto) Baso % (Auto) Neut # (Auto) Lymph # (Auto) [place] # (Auto) Eos # (Auto) Baso # (Auto) WBC Differential Diff Scan Differential Comment Platelet Estimate Platelet Morphology APTT Sodium Potassium Chloride Carbon Dioxide Anion Gap BUN Creatinine Estimated GFR Random Glucose Calcium Total Bilirubin AST ALT Alkaline Phosphatase Total Protein Albumin Vancomycin Trough 10.3 H Bld Prod Order Comment Culture Results: Microbiology 01/21/18 10:25 Aerobic Blood Culture - Preliminary Blood - Peripheral No growth in 3 days Anaerobic Blood Culture - Preliminary No growth in 3 days 01/21/18 10:14 Aerobic Blood Culture - Preliminary Blood - Peripheral No growth in 3 days Anaerobic Blood Culture - Preliminary No growth in 3 days Medications: Active Medications Generic Name Dose Route Start Last Admin Trade Name Freq PRN Reason Stop Dose Admin Hydrocodone Bitart/Acetaminophen 1 tab 01/24/18 09:49 01/24/18 14:05 [place] 10/325 PO 1 tab Q8H PRN Administration PAIN SCALE 6 TO 10 Al Hydroxide/Mg Hydroxide 30 ml 01/17/18 14:19 01/23/18 20:34 Milk Of Magnesia Liq PO 30 ml Q12H PRN Administration Mild Constipation Budesonide/Formoterol Fumarate 2 puff 01/17/18 14:00 01/24/18 09:15 Symbicort 160/4.5 Mcg Inh INH 2 puff BID [facility] Administration Clonidine HCl 0.1 mg 01/18/18 08:33 01/22/18 09:45 Catapres PO 0.1 mg Q6H PRN Administration SEE LABEL COMMENTS Folic Acid 1 mg 01/17/18 13:45 01/24/18 09:14 Folic Acid PO 1 mg DAILY [facility] Administration Argatroban 250 mg/ Sodium 250 mls @ 0 mls/hr 01/18/18 15:00 01/24/18 06:00 Chloride IV.CONT Infused TITRATE PRN Titration Per Protocol Protocol Per Protocol Sodium Chloride 1,000 mls @ 0 mls/hr 01/21/18 09:15 01/21/18 18:07 Ns Inj IV.SIG Infused BOLUS [facility] Infusion Wide Open Dextrose/Sodium Chloride 1,000 mls @ 80 mls/hr 01/22/18 13:15 01/24/18 06:15 D5w/1/2 Ns Inj IV.CONT 80 mls/hr .[id number] [facility] Infusion Metoprolol Tartrate 25 mg 01/17/18 13:45 01/24/18 09:15 Lopressor PO 25 mg BID [facility] Administration Pantoprazole Sodium 40 mg 01/17/18 14:00 01/24/18 09:15 Protonix PO 40 mg DAILY [facility] Administration Pregabalin 75 mg 01/22/18 09:30 01/24/18 09:14 Lyrica PO 75 mg BID [facility] Administration Sennosides 17.2 mg 01/17/18 14:08 01/21/18 22:30 Senokot PO 17.2 mg Q12H PRN Administration Moderate Constipation Sodium Chloride 2 ml 01/17/18 11:17 01/20/18 20:43 Ns Flush IV.FLUSH 2 ml PRN PRN Administration FLUSH AFTER USING IV ACCESS Temazepam 15 mg 01/17/18 21:00 01/23/18 22:45 Restoril PO 15 mg HS PRN Administration INSOMNIA Objective Remarks: GENERAL: Middle-aged male patient, lying in bed, in no acute distress. SKIN: Warm and dry. HEAD: Normocephalic. EYES: No scleral icterus. No injection or drainage. NECK: Supple, trachea midline. CARDIOVASCULAR: +S1/S2 without murmurs. RESPIRATORY: Anterior breath sounds clear, non-labored. GASTROINTESTINAL: Abdomen soft, non-tender, nondistended. EXTREMITIES: No edema. Bilateral toes cool to touch, remaining feet warm. Non- palpable PT, DP pulses. Right toes cyanotic, left toes dusky. MUSCULOSKELETAL: Adequate muscle tone. NEUROLOGICAL: No obvious focal deficit. Awake, alert, and oriented x3. PSYCHIATRIC: Appropriate mood and affect; insight and judgment normal. 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 Bernstein is a pleasant 62-year-old gentleman with a history of non-small cell lung cancer with brain metastasis, status post craniotomy with resection followed by stereotactic radiosurgery with gamma knife, 3-4 cycles of preop Immunochemotherapy with 2 doses of Platinol and Alimta he also underwent thoracotomy and resection of the left upper lobe and wedge resection of the left lower lobe on 01/01/2018. Patient had minimal residual disease of 0.6 cm and also the lymph nodes were negative. Margins were also negative. During this admission the patient was found to have severe thrombocytopenia. Patient did have recent exposure to subcutaneous heparin after his recent surgery. Plan: 1. Non-small cell lung cancer with brain metastasis, status post above treatments. MR thoracic spine abnormality that may be related to nerve root enhancement or drop metastasis. 2. Thrombocytopenia, HIT+ mario alberto, CHAI +. Platelets increasing, 49,000 today. Continue on argatroban. Avoid heparin exposure. Monitor for bleeding. No transfusions warranted at this time. 3. Thrombosis of right saphenous vein. On argatroban drip for thrombocytopenia. 4. Peripheral thrombosis/emboli. Left lower extremity with pain and tingling, toes cool to touch. Vascular surgery consulted with patient today. They are planning for an axillobifemoral bypass to improve blood flow to his legs and bypass the occluded area of aorta and iliac arteries, tomorrow. 5. Fevers, afebrile 24 hours. Chest x-ray on 01/20/2018 with stable. Blood cultures no growth x's 3 days. Continues on antibiotics. - Attending Statement The exam, history, and the medical decision-making described in the above note were completed with the assistance of the mid-level provider. I reviewed and agree with the findings presented. I attest that I had a [id number] encounter with the patient on the same day, and personally performed and documented my assessment and findings in the medical record. Still c/o intermittent pain left leg and now right leg as well. Both feet are extremely cold compare to thigh and knee. Both feet toes are dusky and cyanotic. He is throwing emboli or have new thrombosis lower legs. D/W DR Vascular surgeon Dr Patterson and interventional radiologist DR Veras. Pt is schedule for surgery tomorrow. He will have axillofemoral bypass and coil placement. Appreciate their input. Pt has agreed for surgery. He was given option to transfer to [facility] for the surgery. He wants to have it here. Creatinine coming down . Today 1.59 Plat are coming up. 49 today. Hold of on spinal tap. Pt wants to defer since he is schedule for surgery tomorrow. continue Argatroban till platelets are >100 and then will switch to Eliquis.
--- NOTE | 2018-01-24 16:50 | P.PNNP ---
Subjective Interval history: Interval history: This patient is a 62-year-old male with a complicated medical history. 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 Subsequently went to the [facility] for further treatment which confirmed presence of a 7.4 cm left upper lobe lung mass. Underwent resection of brain mass June 2017 and subsequently started on chemotherapy which included keytrude and Platinol both apparently can be associated with renal insufficiency with patient is unaware of this occurring by history. Last cycle of chemotherapy said to be November 20, 2017. He underwent a thoracotomy January 01, 2018 with wedge resection left upper lobe. Hospital course said to have gone well at the [facility]. Subsequently was discharged but presented to this institution with severe right leg pain. CTA was performed at this institution January 17, 2018 which revealed infarction of the inferior pole of the right kidney of unknown age. Also severe chronic infrarenal atherosclerotic disease causing severe narrowing of the distal aorta and proximal inflow vessels. Patient's creatinine level at the time of presentation 1.2 no previous levels available to me. Creatinine level has been rising subsequently to 1.8 today. 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 01/23/18 Pt going to MRI today of sacrum and coccyx for further eval of L leg weakness. January 24, 2018 Patient with no verbal complaints. Indicating he is improving. Physical Exam Vital signs: Vital Signs 01/23/18 20:00 01/23/18 23:18 01/24/18 01:19 Temperature 96.5 F L 98.3 F Pulse Rate 88 70 Respiratory Rate 18 18 Blood Pressure 127/76 143/78 H Pulse Oximetry 95 92 L 92 L 01/24/18 03:34 01/24/18 08:00 01/24/18 12:00 Temperature 97.2 F L 97.7 F 98.4 F Pulse Rate 70 73 75 Respiratory Rate 18 18 18 Blood Pressure 120/77 140/97 H 137/64 Pulse Oximetry 93 L 98 95 01/24/18 14:02 01/24/18 16:00 Temperature 98.7 F Pulse Rate 78 Respiratory Rate 18 Blood Pressure 186/86 H Pulse Oximetry 96 94 L Intake & Output 01/23/18 01/24/18 01/24/18 18:59 06:59 18:59 Intake Total 2980 / 2980 2199.2 / 2199.2 Output Total 680 / 680 Balance 2980 / 2980 1519.2 / 1519.2 Weight 71.8 kg Intake: IV 2500 / 2500 1399.2 / 1399.2 Novastan Inj 250 MG In NS Inj 250 / 250 99.2 / 99.2 247.5 ML @ Per Protocol IV.CONT TITRATE PRN Rx#:[id number] D5W/1/2 NS Inj 1,000 ML @ 80 2000 / 2000 1200 / 1200 mls/hr IV.CONT .[id number] [facility] Rx# :[id number] Maxipime Inj 2,000 MG In NS Inj 100 / 100 100 ML @ 200 mls/hr IV.SIG Q12H [facility] Rx#:[id number] Vancomycin Inj 1,000 MG In NS 250 / 250 Inj 250 ML @ 250 mls/hr IV.SIG Q24H [facility] Rx#:[id number] Oral 480 / 480 800 / 800 Output: Urine 680 / 680 Other: # Voids 2 4 Narrative: GENERAL: Lying in bed not in respiratory distress. Appears alert responding to questions appropriately. SKIN: Warm and dry. HEAD: Normocephalic. EYES: No scleral icterus. No injection or drainage. NECK: Supple, trachea midline. No JVD or lymphadenopathy. CARDIOVASCULAR: Regular rate and rhythm without murmurs, gallops, or rubs. RESPIRATORY: Breath sounds equal bilaterally. No accessory muscle use. GASTROINTESTINAL: Abdomen soft, non-tender, nondistended. MUSCULOSKELETAL: No cyanosis, or edema. Assessment and Plan - Assessment (1) EVON (acute kidney injury) Code(s): N17.9 - Acute kidney failure, unspecified Status: Acute Plan: Patient likely has developed some degree of contrast nephrotoxicity post CTA. Patient also has evidence of renal infarct involving the lower pole of the right kidney. Unfortunately cannot be certain as to the timing of the event. 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 Also mention of atrial fibrillation and a history. Potential for pre-existing renal insufficiency related to chemotherapy from [facility] as admitting SCr at 1.2. Serum complements within normal range. Urine eosinophils negative. Patient's renal disease significantly improved today hopefully this trend will continue as discussed with the patient. Continue IV hydration. Now on Vanco. Monitor levels. No specific treatment for contrast nephropathy and is already on anticoagulants for HIT. Medications should be adjusted for the patient's estimated GFR if clinically indicated. Avoid agents with significant potential for nephrotoxicity possible including NSAIDs for analgesia, iodine contrast agents. Gadolinium is contraindicated if the GFR is below 30. (2) Renal infarction Code(s): N28.0 - Ischemia and infarction of kidney Status: Acute Plan: Risk factors as described above for renal infarction. Timing of infarction uncertain and it may have been subacute or chronic in nature. Patient already on anticoagulation. No new recommendations from my point of view in regard to management of same.
[2018-01-24] MEDS ORDERED: Morphine Sulfate Inj 2 MG/ML Vial IV.PUSH ONE (18:30)
[2018-01-24] MEDS: Argatroban Inj 250 MG in Sodium Chlor 0.9% Inj 247.5 ML IV.CONT PRN ×2 (20:30→20:53)
[2018-01-24] MEDS: Temazepam 15 MG Capsule PO PRN (22:13)
[2018-01-25] MEDS: Morphine Sulfate Inj 2 MG/ML Vial IV.PUSH PRN ×2 (03:06→09:17)
[2018-01-25] MEDS: Dextrose 5%/NaCl 0.45% Inj 1,000 ML IV.CONT SCH ×2 (03:06→21:19)
[2018-01-25 07:11] LABS: Baso # (Auto) 0.1 th/mm3 (0.0-0.2); Baso % (Auto) 0.9 % (0.0-2.0); Eos # (Auto) 0.8 th/mm3 (0.0-0.4); Eos % (Auto) 5.6 % (0.0-4.0); Hematocrit 26.8 % (39.0-51.0); Hemoglobin 8.7 gm/dL (13.0-17.0); Lymph # (Auto) 2.3 th/mm3 (1.0-4.8); Lymph % (Auto) 17.1 % (9.0-44.0); Mean Corpuscular HGB Conc 32.4 % (32.0-36.0); Mean Corpuscular Hemoglobin 30.4 pg (27.0-34.0); Mean Corpuscular Volume 93.8 fL (80.0-100.0); Mean Platelet Volume 10.9 fL (7.0-11.0); Mono # (Auto) 1.2 th/mm3 (0.0-0.9); Neut # (Auto) 9.1 th/mm3 (1.8-7.7); Neut % (Auto) 67.4 % (16.0-70.0); Platelet Count 71 th/mm3 (150-450); Red Blood Count 2.86 mil/mm3 (4.50-5.90); Red Cell Distribution Width 16.3 % (11.6-17.2); White Blood Count 13.4 th/mm3 (4.0-11.0)
[2018-01-25 07:26] LABS: Calcium 8.3 mg/dL (8.5-10.1); Carbon Dioxide 26.3 meq/L (21.0-32.0)
--- NOTE | 2018-01-25 08:15 | P.PNNEU ---
Subjective Active Medications: Active Medications Hydrocodone Bitart/Acetaminophen ([place] 10/325) 1 tab PO Q8H PRN PRN Reason: PAIN SCALE 6 TO 10 Last Admin: 01/25/18 06:13 Dose: 1 tab Al Hydroxide/Mg Hydroxide (Milk Of Magnesia Liq) 30 ml PO Q12H PRN PRN Reason: Mild Constipation Last Admin: 01/23/18 20:34 Dose: 30 ml Bisacodyl (Dulcolax Supp) 10 mg RECTAL DAILY PRN PRN Reason: SEVERE CONSITIPATION Budesonide/Formoterol Fumarate (Symbicort 160/4.5 Mcg Inh) 2 puff INH BID SH[facility]ONNE Last Admin: 01/24/18 20:53 Dose: 2 puff Clonidine HCl (Catapres) 0.1 mg PO Q6H PRN PRN Reason: SEE LABEL COMMENTS Last Admin: 01/22/18 09:45 Dose: 0.1 mg Folic Acid (Folic Acid) 1 mg PO DAILY [facility] Last Admin: 01/24/18 09:14 Dose: 1 mg Argatroban 250 mg/ Sodium (Chloride) 250 mls @ 0 mls/hr IV.CONT TITRATE PRN; Protocol PRN Reason: Per Protocol Last Titration: 01/25/18 07:42 Dose: 2.5 mcg/kg/min, 10.36 mls/hr Sodium Chloride (Ns Inj) 1,000 mls @ 0 mls/hr IV.SIG BOLUS [facility] Last Infusion: 01/21/18 18:07 Dose: Infused Dextrose/Sodium Chloride (D5w/1/2 Ns Inj) 1,000 mls @ 80 mls/hr IV.CONT .[id number] [facility] Last Infusion: 01/25/18 06:10 Dose: 80 mls/hr Cefepime HCl 2,000 mg/ Sodium (Chloride) 100 mls @ 200 mls/hr IV.SIG Q24H [facility] Last Infusion: 01/25/18 05:00 Dose: Infused Vancomycin HCl 1,000 mg/ (Sodium Chloride) 250 mls @ 250 mls/hr IV.SIG Q18H [facility] Lactulose (Lactulose Liq) 30 ml PO DAILY PRN PRN Reason: SEVERE CONSITIPATION Metoprolol Tartrate (Lopressor) 25 mg PO BID [facility] Last Admin: 01/24/18 20:53 Dose: 25 mg Miscellaneous Information (Misc Pharmacy Ordered Lab Info) 0 each OTHER ONCE ONE Stop: 01/26/18 01:46 Morphine Sulfate (Morphine Inj) 2 mg IV.PUSH Q6H PRN PRN Reason: BREAKTHROUGH PAIN Last Admin: 01/25/18 03:06 Dose: 2 mg Naloxone HCl (Narcan Inj) 0.4 mg IV.PUSH UNSCH PRN PRN Reason: SEE LABEL COMMENTS Pantoprazole Sodium (Protonix) 40 mg PO DAILY [facility] Last Admin: 01/24/18 09:15 Dose: 40 mg Pharmacy Profile Note (Vancomycin Consult Pharmacy) 1 each OTHER UNSCH PRN PRN Reason: Pharmacy to dose Pregabalin (Lyrica) 75 mg PO BID [facility] Last Admin: 01/24/18 20:53 Dose: 75 mg Sennosides (Senokot) 17.2 mg PO Q12H PRN PRN Reason: Moderate Constipation Last Admin: 01/21/18 22:30 Dose: 17.2 mg Sodium Chloride (Ns Flush) 2 ml IV.FLUSH PRN PRN PRN Reason: FLUSH AFTER USING IV ACCESS Last Admin: 01/20/18 20:43 Dose: 2 ml Temazepam (Restoril) 15 mg PO HS PRN PRN Reason: INSOMNIA Last Admin: 01/24/18 22:13 Dose: 15 mg Allergies/Adverse Reactions: Allergies Allergy/AdvReac Type Severity Reaction Status Date / Time No Known Allergies Allergy Unverified 01/17/18 11:06 Physical Exam Vital signs: Vital Signs 01/24/18 12:00 01/24/18 14:02 01/24/18 16:00 Temperature 98.4 F 98.7 F Pulse Rate 75 78 Respiratory Rate 18 18 Blood Pressure 137/64 186/86 H Pulse Oximetry 95 96 94 L 01/24/18 19:00 01/25/18 00:00 01/25/18 04:00 Temperature 98.0 F 98.4 F Pulse Rate 68 74 79 Respiratory Rate 17 21 19 Blood Pressure 159/70 H 133/83 132/80 Pulse Oximetry 94 L 94 L 95 01/25/18 07:55 Temperature 98.3 F Pulse Rate 83 Respiratory Rate 17 Blood Pressure 178/81 H Pulse Oximetry 94 L Intake & Output 01/24/18 01/25/18 01/25/18 18:59 06:59 18:59 Intake Total 1050 / 1050 929 / 929 Balance 1050 / 1050 929 / 929 Weight 70.7 kg Intake: IV 1050 / 1050 929 / 929 Novastan Inj 250 MG In NS Inj 99 / 99 247.5 ML @ Per Protocol IV.CONT TITRATE PRN Rx#:[id number] D5W//2 NS Inj 1,000 ML @ 80 800 / 800 730 / 730 mls/hr IV.CONT .[id number] [facility] Rx# :[id number] Maxipime Inj 2,000 MG In NS Inj 100 / 100 100 ML @ 200 mls/hr IV.SIG Q24H [facility] Rx#:[id number] Vancomycin Inj 1,000 MG In NS 250 / 250 Inj 250 ML @ 250 mls/hr IV.SIG Q24H [facility] Rx#:[id number] Oral 0 / 0 Other: # Voids 2 Narrative: 3+-4-/5 left ta ow 5/5 some pain feet warm not cyanotic now Objective Laboratory Results - last 24 hr 01/24/18 01/24/18 01/24/18 13:02 13:10 16:20 WBC RBC Hgb Hct MCV MCH MCHC RDW Plt Count MPV Prelim Diff (Auto) Neut % (Auto) Lymph % (Auto) [place] % (Auto) Eos % (Auto) Baso % (Auto) Neut # (Auto) Lymph # (Auto) [place] # (Auto) Eos # (Auto) Baso # (Auto) Differential Comment APTT Sodium Potassium Chloride Carbon Dioxide Anion Gap BUN Creatinine Estimated GFR Random Glucose Calcium Vancomycin Trough 10.3 H Blood Type O Positive Antibody Screen Negative MTS Gel Crossmatch See Detail Bld Prod Order Comment 01/25/18 01/25/18 01/25/18 03:41 03:41 03:41 WBC 13.4 H RBC 2.86 L Hgb 8.7 L Hct 26.8 L MCV 93.8 MCH 30.4 MCHC 32.4 RDW 16.3 Plt Count 71 L D MPV 10.9 Prelim Diff (Auto) Slide review pending Neut % (Auto) 67.4 Lymph % (Auto) 17.1 [place] % (Auto) 9.0 H Eos % (Auto) 5.6 H Baso % (Auto) 0.9 Neut # (Auto) 9.1 H Lymph # (Auto) 2.3 [place] # (Auto) 1.2 H Eos # (Auto) 0.8 H Baso # (Auto) 0.1 Differential Comment . APTT 43.7 H D Sodium 141 Potassium 4.0 Chloride 106 Carbon Dioxide 26.3 Anion Gap 9 BUN 23 H Creatinine 1.67 H Estimated GFR 42 L Random Glucose 99 Calcium 8.3 L Vancomycin Trough Blood Type Antibody Screen MTS Gel Crossmatch Bld Prod Order Comment Microbiology 01/21/18 10:25 Aerobic Blood Culture - Preliminary Blood - Peripheral No growth in 3 days Anaerobic Blood Culture - Preliminary No growth in 3 days 01/21/18 10:14 Aerobic Blood Culture - Preliminary Blood - Peripheral No growth in 3 days Anaerobic Blood Culture - Preliminary No growth in 3 days Review/Management - Review/Management Plan: D/W DR LING TRIAL OF DDECADRON 4MG QID MRI RPT NOT YET DONE PT EVAL cta showed some blockages but does have flow in ble arterial dr hannah not convinced the thoracic abn is met could be vascular? i dw neurorad check cpk labs hit rx per dr pablo hernandez recently fu echo some infarct in kidney ? 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 will have to repeat mri t spine concerned with new weak left ankle 01/22/18 mri t spine no change looks more peripheral and not in cord neurorads did not think this was a cord avm vascular feels sx not from aortic dz with the left foot drop need emg and worry about carcinomatous meningits needs LP when able i will dw heme about plts try lyrica and neurontin not helping 01/23/18 no major change emg pend try decadron check cpk similar sx to a diabetic amyotrophy picture check mri of the ls plexus and pelvis 01/24/18 pain much better plt 49k should be able to do LP soon maybe a llittle stronger left ta ? aseptic necrosis hip so will hold further steroids and please have heme order LP jermaine when cleared plexus mri neg 01/25/[address] Yesenia hopper and dr shah no need to do LP now as cannot rx with chemo so surgery for what was felt yest to be ischemia sudden change watch renal fx emg pend
[2018-01-25 08:41] LABS: Platelet Morphology Normal (Normal)
[2018-01-25] MEDS: Folic Acid 1 MG Tablet PO SCH (09:02)
[2018-01-25] MEDS: Metoprolol Tartrate 25 MG Tablet PO SCH ×2 (09:02→20:47)
[2018-01-25] MEDS: Pregabalin 75 MG Capsule PO SCH ×2 (09:02→21:40)
[2018-01-25] MEDS: Vancomycin Inj 1,000 MG in Sodium Chlor 0.9% Inj 250 ML IV.SIG SCH (09:03)
[2018-01-25] MEDS: Budesonide-Formoterol 160/4.5 MCG 6 GM Inhaler INH SCH ×2 (09:03→21:18)
--- NOTE | 2018-01-25 09:08 | P.PNONC ---
Subjective Interval history: Afebrile 48 hours. Patient lying in bed, awaiting surgery today. He reports he is feeling anxious , however ready to get it over with. Patient still has complaints of bilateral leg pain. No other complaints at this time. He denies any bleeding. Continues on argatroban drip. Objective Vital Signs/Intake & Output: Vital Signs 01/24/18 12:00 01/24/18 14:02 01/24/18 16:00 Temperature 98.4 F 98.7 F Pulse Rate 75 78 Respiratory Rate 18 18 Blood Pressure 137/64 186/86 H Pulse Oximetry 95 96 94 L 01/24/18 19:00 01/25/18 00:00 01/25/18 04:00 Temperature 98.0 F 98.4 F Pulse Rate 68 74 79 Respiratory Rate 17 21 19 Blood Pressure 159/70 H 133/83 132/80 Pulse Oximetry 94 L 94 L 95 01/25/18 07:55 Temperature 98.3 F Pulse Rate 83 Respiratory Rate 17 Blood Pressure 178/81 H Pulse Oximetry 94 L Intake & Output 01/24/18 01/25/18 01/25/18 18:59 06:59 18:59 Intake Total 1050 / 1050 929 / 929 Balance 1050 / 1050 929 / 929 Weight 70.7 kg Intake: IV 1050 / 1050 929 / 929 Novastan Inj 250 MG In NS Inj 99 / 99 247.5 ML @ Per Protocol IV.CONT TITRATE PRN Rx#:[id number] D5W/1/2 NS Inj 1,000 ML @ 80 800 / 800 730 / 730 mls/hr IV.CONT .[id number] SHAVONNE Rx# :[id number] Maxipime Inj 2,000 MG In NS Inj 100 / 100 100 ML @ 200 mls/hr IV.SIG Q24H SHAVONNE Rx#:[id number] Vancomycin Inj 1,000 MG In NS 250 / 250 Inj 250 ML @ 250 mls/hr IV.SIG Q24H SHAVONNE Rx#:[id number] Oral 0 / 0 Other: # Voids 2 Result Diagrams: 01/25/18 03:41 01/25/18 03:41 Laboratory Results: Laboratory Results - last 24 hr 01/24/18 01/24/18 01/24/18 13:02 13:10 16:20 WBC RBC Hgb Hct MCV MCH MCHC RDW Plt Count MPV Prelim Diff (Auto) Neut % (Auto) Lymph % (Auto) [place] % (Auto) Eos % (Auto) Baso % (Auto) Neut # (Auto) Lymph # (Auto) [place] # (Auto) Eos # (Auto) Baso # (Auto) WBC Differential Diff Scan Differential Comment Platelet Estimate Platelet Morphology APTT Sodium Potassium Chloride Carbon Dioxide Anion Gap BUN Creatinine Estimated GFR Random Glucose Calcium Vancomycin Trough 10.3 H Blood Type O Positive Antibody Screen Negative MTS Gel Crossmatch See Detail Bld Prod Order Comment 01/25/18 01/25/18 01/25/18 03:41 03:41 03:41 WBC 13.4 H RBC 2.86 L Hgb 8.7 L Hct 26.8 L MCV 93.8 MCH 30.4 MCHC 32.4 RDW 16.3 Plt Count 71 L D MPV 10.9 Prelim Diff (Auto) Slide review pending Neut % (Auto) 67.4 Lymph % (Auto) 17.1 [place] % (Auto) 9.0 H Eos % (Auto) 5.6 H Baso % (Auto) 0.9 Neut # (Auto) 9.1 H Lymph # (Auto) 2.3 [place] # (Auto) 1.2 H Eos # (Auto) 0.8 H Baso # (Auto) 0.1 WBC Differential . Diff Scan Auto diff confirmed Differential Comment . Platelet Estimate Low L Platelet Morphology Normal APTT 43.7 H D Sodium 141 Potassium 4.0 Chloride 106 Carbon Dioxide 26.3 Anion Gap 9 BUN 23 H Creatinine 1.67 H Estimated GFR 42 L Random Glucose 99 Calcium 8.3 L Vancomycin Trough Blood Type Antibody Screen MTS Gel Crossmatch Bld Prod Order Comment Culture Results: Microbiology 01/21/18 10:25 Aerobic Blood Culture - Preliminary Blood - Peripheral No growth in 3 days Anaerobic Blood Culture - Preliminary No growth in 3 days 01/21/18 10:14 Aerobic Blood Culture - Preliminary Blood - Peripheral No growth in 3 days Anaerobic Blood Culture - Preliminary No growth in 3 days Medications: Active Medications Generic Name Dose Route Start Last Admin Trade Name Freq PRN Reason Stop Dose Admin Hydrocodone Bitart/Acetaminophen 1 tab 01/24/18 09:49 01/25/18 06:13 [place] 10/325 PO 1 tab Q8H PRN Administration PAIN SCALE 6 TO 10 Al Hydroxide/Mg Hydroxide 30 ml 01/17/18 14:19 01/23/18 20:34 Milk Of Magnesia Liq PO 30 ml Q12H PRN Administration Mild Constipation Budesonide/Formoterol Fumarate 2 puff 01/17/18 14:00 01/24/18 20:53 Symbicort 160/4.5 Mcg Inh INH 2 puff BID SHAVONNE Administration Clonidine HCl 0.1 mg 01/18/18 08:33 01/22/18 09:45 Catapres PO 0.1 mg Q6H PRN Administration SEE LABEL COMMENTS Folic Acid 1 mg 01/17/18 13:45 01/24/18 09:14 Folic Acid PO 1 mg DAILY SHAVONNE Administration Argatroban 250 mg/ Sodium 250 mls @ 0 mls/hr 01/18/18 15:00 01/25/18 07:42 Chloride IV.CONT 2.5 mcg/kg/min TITRATE PRN 10.36 mls/hr Per Protocol Titration Protocol Per Protocol Sodium Chloride 1,000 mls @ 0 mls/hr 01/21/18 09:15 01/21/18 18:07 Ns Inj IV.SIG Infused BOLUS SHAVONNE Infusion Wide Open Dextrose/Sodium Chloride 1,000 mls @ 80 mls/hr 01/22/18 13:15 01/25/18 06:10 D5w/1/2 Ns Inj IV.CONT 80 mls/hr .[id number] SHAVONNE Infusion Cefepime HCl 2,000 mg/ Sodium 100 mls @ 200 mls/hr 01/25/18 02:00 01/25/18 05 :00 Chloride IV.SIG Infused Q24H SHAVONNE Infusion Metoprolol Tartrate 25 mg 01/17/18 13:45 01/24/18 20:53 Lopressor PO 25 mg BID SHAVONNE Administration Morphine Sulfate 2 mg 01/24/18 18:30 01/25/18 03:06 Morphine Inj IV.PUSH 2 mg Q6H PRN Administration BREAKTHROUGH PAIN Pantoprazole Sodium 40 mg 01/17/18 14:00 01/24/18 09:15 Protonix PO 40 mg DAILY SHAVONNE Administration Pregabalin 75 mg 01/22/18 09:30 01/24/18 20:53 Lyrica PO 75 mg BID SHAVONNE Administration Sennosides 17.2 mg 01/17/18 14:08 09/16/18 22:30 Senokot PO 17.2 mg Q12H PRN Administration Moderate Constipation Sodium Chloride 2 ml 01/17/18 11:17 01/20/18 20:43 Ns Flush IV.FLUSH 2 ml PRN PRN Administration FLUSH AFTER USING IV ACCESS Temazepam 15 mg 01/17/18 21:00 01/24/18 22:13 Restoril PO 15 mg HS PRN Administration INSOMNIA Objective Remarks: GENERAL: Middle-aged male patient, lying in bed, in no acute distress. SKIN: Warm and dry. HEAD: Normocephalic. EYES: No scleral icterus. No injection or drainage. NECK: Supple, trachea midline. CARDIOVASCULAR: +S1/S2 without murmurs. RESPIRATORY: Anterior breath sounds clear, non-labored. GASTROINTESTINAL: Abdomen soft, non-tender, nondistended. EXTREMITIES: No edema. Bilateral toes cool to touch, remaining feet warm. Non- palpable PT, DP pulses. Bilateral toes dusky. MUSCULOSKELETAL: Adequate muscle tone. NEUROLOGICAL: No obvious focal deficit. Awake, alert, and oriented x3. PSYCHIATRIC: Appropriate mood and affect; insight and judgment normal. 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 Bernstein is a pleasant 62-year-old gentleman with a history of non-small cell lung cancer with brain metastasis, status post craniotomy with resection followed by stereotactic radiosurgery with gamma knife, 3-4 cycles of preop Immunochemotherapy with 2 doses of Platinol and Alimta he also underwent thoracotomy and resection of the left upper lobe and wedge resection of the left lower lobe on 01/01/2018. Patient had minimal residual disease of 0.6 cm and also the lymph nodes were negative. Margins were also negative. During this admission the patient was found to have severe thrombocytopenia. Patient did have recent exposure to subcutaneous heparin after his recent surgery. Plan: 1. Non-small cell lung cancer with brain metastasis, status post above treatments. MR thoracic spine abnormality that may be related to nerve root enhancement or drop metastasis. 2. Thrombocytopenia, HIT+ mario alberto, CHAI +. Platelets increasing, 71,000 today. Continue on argatroban. Avoid heparin exposure. Monitor for bleeding. 3. Thrombosis of right saphenous vein. On argatroban drip for thrombocytopenia. 4. Peripheral thrombosis/emboli. Bilateral lower extremity with pain, intermittent tingling, toes cool to touch. Vascular surgery consulted and are planning for an axillobifemoral bypass to improve blood flow to his legs and bypass the occluded area of aorta and iliac arteries, today. 5. Fevers have resolved. 6. Continue supportive care.
--- NOTE | 2018-01-25 09:23 | P.PNFP ---
Subjective Interval history: Patient seen and examined this morning. No acute events overnight. Patient remained afebrile overnight. States did have some more pain overnight and this morning compared to the last 2 days. Denies any new pain or new symptoms. Is planning on going to surgery this morning around 9:30 AM. States the new pain medication is not working very well. States the Mikana does not work very well. Otherwise, denies any new symptoms. Denies any headaches, chest pain, shortness of breath, abdominal pain. <Richard Kuo - 01/25/18 10:08> Results - Labs Result diagrams: 01/26/18 05:15 01/26/18 05:15 <Stephanie Calzada - 01/26/18 09:51> Abnormal lab results 01/24/18 01/25/18 01/25/18 Range/Units 16:20 03:41 20:00 WBC 13.1 H (4.0-11.0) th/mm3 RBC 3.23 L (4.50-5.90) mil/mm3 Hgb 9.6 L (13.0-17.0) gm/dL Hct 29.4 L (39.0-51.0) % RDW 18.3 H (11.6-17.2) % Plt Count 58 L (150-450) th/mm3 Neut % (Auto) 80.6 H (16.0-70.0) % Lymph % (Auto) 6.6 L (9.0-44.0) % [place] % (Auto) 8.1 H (0.0-8.0) % Eos % (Auto) 4.3 H (0.0-4.0) % Neut # (Auto) 10.5 H (1.8-7.7) th/mm3 Lymph # (Auto) 0.9 L (1.0-4.8) th/mm3 [place] # (Auto) 1.1 H (0.0-0.9) th/mm3 Eos # (Auto) 0.6 H (0.0-0.4) th/mm3 Platelet Estimate Low L (Normal) PT (9.8-11.6) sec APTT (24.3-30.1) sec BUN (7-18) mg/dL Creatinine (0.60-1.30) mg/dL Estimated GFR (>89) mL/min Random Glucose (74-106) mg/dL Calcium (8.5-10.1) mg/dL Prot Corrected Calcium (8.5-10.1) mg/dL AST (15-37) U/L Total Creatine Kinase 509 H (39-308) U/L CK-MB (CK-2) 7.8 H (0.5-3.6) ng/mL Total Protein (6.4-8.2) g/dL Albumin (3.4-5.0) g/dL Vancomycin Trough (5.0-10.0) mcg/mL MTS Gel Crossmatch See Detail 01/25/18 01/25/18 01/26/18 Range/Units 20:00 20:00 00:10 WBC (4.0-11.0) th/mm3 RBC (4.50-5.90) mil/mm3 Hgb (13.0-17.0) gm/dL Hct (39.0-51.0) % RDW (11.6-17.2) % Plt Count (150-450) th/mm3 Neut % (Auto) (16.0-70.0) % Lymph % (Auto) (9.0-44.0) % [place] % (Auto) (0.0-8.0) % Eos % (Auto) (0.0-4.0) % Neut # (Auto) (1.8-7.7) th/mm3 Lymph # (Auto) (1.0-4.8) th/mm3 [place] # (Auto) (0.0-0.9) th/mm3 Eos # (Auto) (0.0-0.4) th/mm3 Platelet Estimate (Normal) PT 18.3 H (9.8-11.6) sec APTT 43.7 H 52.2 H (24.3-30.1) sec BUN (7-18) mg/dL Creatinine 1.39 H (0.60-1.30) mg/dL Estimated GFR 51 L (>89) mL/min Random Glucose 131 H (74-106) mg/dL Calcium 7.3 L* D (8.5-10.1) mg/dL Prot Corrected Calcium 7.8 L (8.5-10.1) mg/dL AST (15-37) U/L Total Creatine Kinase (39-308) U/L CK-MB (CK-2) (0.5-3.6) ng/mL Total Protein 6.1 L D (6.4-8.2) g/dL Albumin (3.4-5.0) g/dL Vancomycin Trough (5.0-10.0) mcg/mL MTS Gel Crossmatch 01/26/18 01/26/18 01/26/18 Range/Units 01:45 05:15 05:15 WBC 13.8 H (4.0-11.0) th/mm3 RBC 2.77 L (4.50-5.90) mil/mm3 Hgb 8.4 L (13.0-17.0) gm/dL Hct 25.1 L (39.0-51.0) % RDW 18.5 H (11.6-17.2) % Plt Count 48 L (150-450) th/mm3 Neut % (Auto) 80.6 H (16.0-70.0) % Lymph % (Auto) 7.8 L (9.0-44.0) % [place] % (Auto) 10.9 H (0.0-8.0) % Eos % (Auto) (0.0-4.0) % Neut # (Auto) 11.1 H (1.8-7.7) th/mm3 Lymph # (Auto) (1.0-4.8) th/mm3 [place] # (Auto) 1.5 H (0.0-0.9) th/mm3 Eos # (Auto) (0.0-0.4) th/mm3 Platelet Estimate Low L (Normal) PT (9.8-11.6) sec APTT (24.3-30.1) sec BUN 21 H (7-18) mg/dL Creatinine 1.41 H (0.60-1.30) mg/dL Estimated GFR 51 L (>89) mL/min Random Glucose 110 H (74-106) mg/dL Calcium 7.8 L (8.5-10.1) mg/dL Prot Corrected Calcium (8.5-10.1) mg/dL AST 66 H (15-37) U/L Total Creatine Kinase (39-308) U/L CK-MB (CK-2) (0.5-3.6) ng/mL Total Protein 5.8 L (6.4-8.2) g/dL Albumin 2.1 L (3.4-5.0) g/dL Vancomycin Trough 15.2 H (5.0-10.0) mcg/mL MTS Gel Crossmatch 01/26/18 Range/Units 05:15 WBC (4.0-11.0) th/mm3 RBC (4.50-5.90) mil/mm3 Hgb (13.0-17.0) gm/dL Hct (39.0-51.0) % RDW (11.6-17.2) % Plt Count (150-450) th/mm3 Neut % (Auto) (16.0-70.0) % Lymph % (Auto) (9.0-44.0) % [place] % (Auto) (0.0-8.0) % Eos % (Auto) (0.0-4.0) % Neut # (Auto) (1.8-7.7) th/mm3 Lymph # (Auto) (1.0-4.8) th/mm3 [place] # (Auto) (0.0-0.9) th/mm3 Eos # (Auto) (0.0-0.4) th/mm3 Platelet Estimate (Normal) PT (9.8-11.6) sec APTT 56.7 H (24.3-30.1) sec BUN (7-18) mg/dL Creatinine (0.60-1.30) mg/dL Estimated GFR (>89) mL/min Random Glucose (74-106) mg/dL Calcium (8.5-10.1) mg/dL Prot Corrected Calcium (8.5-10.1) mg/dL AST (15-37) U/L Total Creatine Kinase (39-308) U/L CK-MB (CK-2) (0.5-3.6) ng/mL Total Protein (6.4-8.2) g/dL Albumin (3.4-5.0) g/dL Vancomycin Trough (5.0-10.0) mcg/mL MTS Gel Crossmatch Short CBC 01/25/18 01/26/18 Range/Units 20:00 05:15 WBC 13.1 H 13.8 H (4.0-11.0) th/mm3 Hgb 9.6 L 8.4 L (13.0-17.0) gm/dL Hct 29.4 L 25.1 L (39.0-51.0) % Plt Count 58 L 48 L (150-450) th/mm3 BMP 01/25/18 01/26/18 20:00 05:15 Sodium 139 140 Potassium 4.4 4.7 Chloride 105 107 Carbon Dioxide 24.2 25.9 BUN 18 21 H Creatinine 1.39 H 1.41 H Calcium 7.3 L* D 7.8 L Cardiac Enzymes 01/25/18 Range/Units 03:41 Total Creatine Kinase 509 H (39-308) U/L CK-MB (CK-2) 7.8 H (0.5-3.6) ng/mL Liver Function 01/26/18 Range/Units 05:15 Total Bilirubin 0.5 (0.2-1.0) mg/dL AST 66 H (15-37) U/L ALT 35 (12-78) U/L Alkaline Phosphatase 63 (45-117) U/L Albumin 2.1 L (3.4-5.0) g/dL <Stephanie Calzada - 01/26/18 09:51> Abnormal lab results 01/24/18 01/24/18 01/25/18 Range/Units 13:10 16:20 03:41 WBC (4.0-11.0) th/mm3 RBC (4.50-5.90) mil/mm3 Hgb (13.0-17.0) gm/dL Hct (39.0-51.0) % Plt Count (150-450) th/mm3 [place] % (Auto) (0.0-8.0) % Eos % (Auto) (0.0-4.0) % Neut # (Auto) (1.8-7.7) th/mm3 [place] # (Auto) (0.0-0.9) th/mm3 Eos # (Auto) (0.0-0.4) th/mm3 Platelet Estimate (Normal) APTT 43.7 H D (24.3-30.1) sec BUN (7-18) mg/dL Creatinine (0.60-1.30) mg/dL Estimated GFR (>89) mL/min Calcium (8.5-10.1) mg/dL Vancomycin Trough 10.3 H (5.0-10.0) mcg/mL MTS Gel Crossmatch See Detail 01/25/18 01/25/18 Range/Units 03:41 03:41 WBC 13.4 H (4.0-11.0) th/mm3 RBC 2.86 L (4.50-5.90) mil/mm3 Hgb 8.7 L (13.0-17.0) gm/dL Hct 26.8 L (39.0-51.0) % Plt Count 71 L D (150-450) th/mm3 [place] % (Auto) 9.0 H (0.0-8.0) % Eos % (Auto) 5.6 H (0.0-4.0) % Neut # (Auto) 9.1 H (1.8-7.7) th/mm3 [place] # (Auto) 1.2 H (0.0-0.9) th/mm3 Eos # (Auto) 0.8 H (0.0-0.4) th/mm3 Platelet Estimate Low L (Normal) APTT (24.3-30.1) sec BUN 23 H (7-18) mg/dL Creatinine 1.67 H (0.60-1.30) mg/dL Estimated GFR 42 L (>89) mL/min Calcium 8.3 L (8.5-10.1) mg/dL Vancomycin Trough (5.0-10.0) mcg/mL MTS Gel Crossmatch Short CBC 01/25/18 Range/Units 03:41 WBC 13.4 H (4.0-11.0) th/mm3 Hgb 8.7 L (13.0-17.0) gm/dL Hct 26.8 L (39.0-51.0) % Plt Count 71 L D (150-450) th/mm3 BMP 01/25/18 03:41 Sodium 141 Potassium 4.0 Chloride 106 Carbon Dioxide 26.3 BUN 23 H Creatinine 1.67 H Calcium 8.3 L <Richard Kuo - 01/25/18 09:23> Physical Exam Vital signs: Vital Signs 01/25/18 18:10 01/25/18 18:30 01/25/18 18:45 Temperature 97.8 F Pulse Rate 75 86 89 Respiratory Rate 21 21 21 Blood Pressure 137/65 185/80 H 165/76 H Pulse Oximetry 98 98 98 01/25/18 19:00 01/25/18 19:46 01/25/18 20:00 Temperature 97.6 F 98.1 F Pulse Rate 92 H 87 Respiratory Rate 21 18 Blood Pressure 157/71 H 180/79 H Pulse Oximetry 98 100 98 01/26/18 00:00 01/26/18 04:00 Temperature 98.7 F 99 F Pulse Rate 74 84 Respiratory Rate 16 12 Blood Pressure 161/69 H 174/69 H Pulse Oximetry 97 98 Intake & Output 01/25/18 01/26/18 01/26/18 18:59 06:59 18:59 Intake Total 5250 / 5250 501 / 501 Output Total 1750 / 1750 1650 / 1650 Balance 3500 / 3500 -1149 / -1149 Weight 73.5 kg Intake: IV 250 / 250 501 / 501 Novastan Inj 250 MG In NS Inj 151 / 151 247.5 ML @ Per Protocol IV.CONT TITRATE PRN Rx#:[id number] Maxipime Inj 2,000 MG In NS Inj 100 / 100 100 ML @ 200 mls/hr IV.SIG Q12H SHAVONNE Rx#:[id number] Vancomycin Inj 1,000 MG In NS 250 / 250 250 / 250 Inj 250 ML @ 250 mls/hr IV.SIG Q18H SHAVONNE Rx#:[id number] Anesthesia Amount 4500 / 4500 Mass Transfusion Protocol 500 / 500 Output: Urine 1500 / 1500 Estimated Blood Loss 250 / 250 Urine Amount (Catheter) 1650 / 1650 Indwelling Urethral Catheter 1650 / 1650 Other: # Voids 1 Date of Last Bowel Movement 01/19/18 <Stephanie Calzada - 01/26/18 09:51> Vital Signs 01/24/18 12:00 01/24/18 14:02 01/24/18 16:00 Temperature 98.4 F 98.7 F Pulse Rate 75 78 Respiratory Rate 18 18 Blood Pressure 137/64 186/86 H Pulse Oximetry 95 96 94 L 01/24/18 19:00 01/25/18 00:00 01/25/18 04:00 Temperature 98.0 F 98.4 F Pulse Rate 68 74 79 Respiratory Rate 17 21 19 Blood Pressure 159/70 H 133/83 132/80 Pulse Oximetry 94 L 94 L 95 09/20/18 07:55 Temperature 98.3 F Pulse Rate 83 Respiratory Rate 17 Blood Pressure 178/81 H Pulse Oximetry 94 L Intake & Output 01/24/18 01/25/18 01/25/18 18:59 06:59 18:59 Intake Total 1050 / 1050 929 / 929 Balance 1050 / 1050 929 / 929 Weight 70.7 kg Intake: IV 1050 / 1050 929 / 929 Novastan Inj 250 MG In NS Inj 99 / 99 247.5 ML @ Per Protocol IV.CONT TITRATE PRN Rx#:[id number] D5W/1/2 NS Inj 1,000 ML @ 80 800 / 800 730 / 730 mls/hr IV.CONT .[id number] SHAVONNE Rx# :[id number] Maxipime Inj 2,000 MG In NS Inj 100 / 100 100 ML @ 200 mls/hr IV.SIG Q24H [facility]ONNE Rx#:[id number] Vancomycin Inj 1,000 MG In NS 250 / 250 Inj 250 ML @ 250 mls/hr IV.SIG Q24H SHAVONNE Rx#:[id number] Oral 0 / 0 Other: # Voids 2 <Richard Kuo - 01/25/18 09:23> Narrative: GENERAL: Thin appearing male lying in bed in no acute distress. SKIN: Warm and dry. CARDIOVASCULAR: Regular rate and rhythm without obvious murmurs, gallops, or rubs. RESPIRATORY: Prolonged inspiratory and expiratory phase. Decreased breath sounds of the bilateral lower lobes. No wheezes or crackles. No increased work of breathing at this time. Thoracotomy incision without sign of infection. GASTROINTESTINAL: Abdomen soft, non-tender, nondistended with positive bowel sounds. MUSCULOSKELETAL: No cyanosis or edema. Continued decreased sensation over left posterior calf and left lateral foot, unchanged from previous exams. Minimal tenderness to calves today. Bilateral toes cool to touch, otherwise feet warm without cyanosis. NEURO/PSYCH: Afocal. Awake, alert, and oriented x3. Normal speech and judgement. <Richard Kuo - 01/25/18 10:08> - Urinary Catheter Management Indwelling Urethral Catheter Cath placed during this visit: no <Stephanie Calzada - 01/26/18 09:51> yes <Richard Kuo - 01/25/18 22:53> Reason for continuing: Hourly intake/output <Richard Kuo - 01/25/18 22:53 > Insertion date: 01/25/18 <Richard Kuo - 01/25/18 22:53> Insertion time: 12:59 <Richard Kuo - 01/25/18 22:53> Assessment and Plan - Assessment (1) SIRS (systemic inflammatory response syndrome) Code(s): R65.10 - Systemic inflammatory response syndrome (SIRS) of non- infectious origin without acute organ dysfunction Status: Acute (2) EVON (acute kidney injury) Code(s): N17.9 - Acute kidney failure, unspecified Status: Acute (3) Pain in both lower legs Code(s): M79.661 - Pain in right lower leg; M79.662 - Pain in left lower leg Status: Acute (4) Heparin induced thrombocytopenia Code(s): D75.82 - Heparin induced thrombocytopenia (HIT) Status: Acute (5) Metastatic primary lung cancer Code(s): C34.90 - Malignant neoplasm of unspecified part of unspecified bronchus or lung Status: Acute (6) Thrombosis of right saphenous vein Code(s): I82.811 - Embolism and thrombosis of superficial veins of right lower extremity Status: Acute (7) Anemia Code(s): D64.9 - Anemia, unspecified Status: Acute (8) Avascular necrosis of hip Code(s): M87.059 - Idiopathic aseptic necrosis of unspecified femur Status: Acute (9) Atrial fibrillation Code(s): I48.91 - Unspecified atrial fibrillation Status: Acute (10) Nutrition, metabolism, and development symptoms Code(s): R63.8 - Other symptoms and signs concerning food and fluid intake Status: Acute <Stephanie Calzada - 01/26/18 09:51> (1) SIRS (systemic inflammatory response syndrome) Code(s): R65.10 - Systemic inflammatory response syndrome (SIRS) of non- infectious origin without acute organ dysfunction Status: Acute Plan: Patient currently meeting SIRS criteria with low grade temps & leukocytosis. No obvious source of infection, however inflammatory response could be related to malignancy vs thrombosis. CBC: Stable WBC and neutrophils Chest x-ray (01/20): Stable from admission Urinalysis (01/20): Negative leukocyte esterase and nitrite, large occult blood, 100 protein, rare bacteria; otherwise negative Lactic acid 0.7; ESR 66 -Has been afebrile the last 48 hours -Blood cultures 01/21/18: NGTD -Started on antibiotics -Vancomycin (01/21 - ) -Cefepime 2g 24H (01/21 - ) (2) EVON (acute kidney injury) Code(s): N17.9 - Acute kidney failure, unspecified Status: Acute Plan: Increasing serum creatinine during hospitalization. Admitted with Cr of 1.2. CMP from 06/28/17 with Cr of 0.95 Aortic CTA shows infarct of inferior pole of right kidney of unknown age. Possibly related to contrast administration during hospitalization Cr slightly worse today Will need to watch kidney function after surgery -Monitor I/Os -Monitor BMP -Avoid nephrotoxic agents -Avoid further contrast studies if able -Renal consulted -Suspect contrast nephrotoxicity -Serum complements wnl; urine eosinophils negative -Continue IV hydration of D5-1/2NS @ 80mls/hr (3) Pain in both lower legs Code(s): M79.661 - Pain in right lower leg; M79.662 - Pain in left lower leg Status: Acute Plan: Patient presented after worsening pain and weakness in bilateral legs. Upon further discussion with patient, has signs and symptoms of peripheral arterial disease. Also with associated neuropathy and weakness upon admission. 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 -Ordered Decadron 10mg IV once, which did help with the pain -EMG pending -Vascular vi-[id number] recs -Pt has changes of decrease blood flow in feet. Throwing embolic material distally -Plan for axillobifemoral bypass along with coiling proximal ilial flow to prevent further clots -Heme/onc consulted -Treating HIT with argatroban -PT evaluating -recommend home health -Pain management -Mikana 10 q8H PRN -Morphine to 2mg q12H PRN, may increase frequency if needed (4) Heparin induced thrombocytopenia Code(s): D75.82 - Heparin induced thrombocytopenia (HIT) Status: Acute Plan: Postop from lobectomy and s/p heparin 9 days on admission Heparin-induced thrombocytopenia antibody positive Platelets continue to trend up No transfusion recommended at this time due to possibility of further coagulation Hold all heparin forms Heme/onc consulted-HIT with thrombosis -On argatroban gtt (5) Metastatic primary lung cancer Code(s): C34.90 - Malignant neoplasm of unspecified part of unspecified bronchus or lung Status: Acute Plan: Status post chemo in November, status post lobectomy Recent PET scans negative MRI spine shows possible mets Repeat brain MRI with no acute change -Management per oncology team; discussing case with patients Oncologist in [place] , Dr. Dillard -Regarding possible drop mets -Unsure of etiology at this time -Radiation oncology consulted -No therapy at this time due to low platelets (6) Thrombosis of right saphenous vein Code(s): I82.811 - Embolism and thrombosis of superficial veins of right lower extremity Status: Acute Plan: Lower extremity superficial vein, generally benign and self-limited however a larger vein is involved in this case Caution with propagation into the DVT system and PE possibility Likely due to abnormal coagulation at this time may repeat duplex ultrasound with further clinical signs Elevation Warm and cool compresses Compression stockings Pain management (7) Anemia Code(s): D64.9 - Anemia, unspecified Status: Acute Plan: No history of anemia per patient Likely chronic anemia, patient at high risk for bleeding due to thrombocytopenia Unsure of the exact cause, chemotherapy vs recent surgery vs chronic anemia (8) Avascular necrosis of hip Code(s): M87.059 - Idiopathic aseptic necrosis of unspecified femur Status: Acute Plan: MRI of sacrum revealed findings of avascular necrosis involving the right femoral head. No collapse. Pt reports chronic hip pain, nothing acute Unsure etiology Did receive IV steroids on 01/23 -Will hold further steroids at this time -Continue to monitor (9) Atrial fibrillation Code(s): I48.91 - Unspecified atrial fibrillation Status: Acute Plan: History of Afib. Controlled rate Echo shows EF of 50-55% Segmental wall motion abnormalities with hypokinesis No episodes of Afib during admission, d/c Telemetry Continue metoprolol (10) Nutrition, metabolism, and development symptoms Code(s): R63.8 - Other symptoms and signs concerning food and fluid intake Status: Acute Plan: Fluids: D5-1/2NS @ 80mls/hr Electrolytes: Follow-up BMP and replete as needed Nutrition: Regular diet, NPO before surgery today DVT prophylaxis: Holding all heparin products, argatroban gtt Incentive spirometry <Richard Kuo - 01/25/18 22:53> - Assessment and Plan 62 y/o male with history of lung cancer with mets to brain, hypertension, atrial fibrillation presented on admission with bilateral leg pain/weakness. Admitted for workup. 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 Leg pain being worked up with etiology of vascular vs neurologic vs infectious vs other. Currently on argatroban gtt and working up leg pain further with pain management. <Richard Kuo - 01/25/18 09:23> Discharge Planning: Pending improvement of platelets and workup of leg pain. PT recommends home health upon discharge Advanced Directives discussed with pt on 01/22. Paperwork completed. Pt's is Health care surrogate. Confirmed full code status and <Richard Kuo - 01/25/18 09:23> - Attending Attestation Case discussed with Dr. Kuo. Agree with plan of care. <Stephanie Calzada - 01/26/18 09:51> <Richard Kuo - Last Filed: 01/25/18 22:53> (7) Anemia Qualifiers: Anemia type: bone marrow failure Bone marrow failure anemia type: pancytopenia, antineoplastic chemotherapy-induced Qualified Code(s): D61.810 - Antineoplastic chemotherapy induced pancytopenia; T45.1X5A - Adverse effect of antineoplastic and immunosuppressive drugs, initial encounter (8) Avascular necrosis of hip Qualifiers: Laterality: right Qualified Code(s): M87.051 - Idiopathic aseptic necrosis of right femur <Stephanie Calzada - Last Filed: 01/26/18 09:51> (7) Anemia Qualifiers: Qualified Code(s): D61.810 - Antineoplastic chemotherapy induced pancytopenia ; T45.1X5A - Adverse effect of antineoplastic and immunosuppressive drugs, initial encounter (8) Avascular necrosis of hip Qualifiers: Qualified Code(s): M87.051 - Idiopathic aseptic necrosis of right femur <Richard Kuo - Last Filed: 01/25/18 22:53> (7) Anemia Qualifiers: Anemia type: bone marrow failure Bone marrow failure anemia type: pancytopenia, antineoplastic chemotherapy-induced Qualified Code(s): D61.810 - Antineoplastic chemotherapy induced pancytopenia; T45.1X5A - Adverse effect of antineoplastic and immunosuppressive drugs, initial encounter (8) Avascular necrosis of hip Qualifiers: Laterality: right Qualified Code(s): M87.051 - Idiopathic aseptic necrosis of right femur <Stephanie Calzada - Last Filed: 01/26/18 09:51> (7) Anemia Qualifiers: Qualified Code(s): D61.810 - Antineoplastic chemotherapy induced pancytopenia ; T45.1X5A - Adverse effect of antineoplastic and immunosuppressive drugs, initial encounter (8) Avascular necrosis of hip Qualifiers: Qualified Code(s): M87.051 - Idiopathic aseptic necrosis of right femur
[2018-01-25 10:15] LABS: CKMB Percent 1.5 % (0.0-4.0); Creatine Kinase MB 7.8 ng/mL (0.5-3.6)
[2018-01-25] MEDS ORDERED: Heparin - SQ 10,000 UNITS/ML Vial ONE ×2 (11:57→13:22)
[2018-01-25] MEDS ORDERED: Heparin 10,000 UNITS/10 ML Vial (for IV use) ONE (11:57)
[2018-01-25] MEDS ORDERED: Sodium Chlor 0.9% Inj 500 ML ONE (11:57)
[2018-01-25] MEDS ORDERED: Bupivacaine/Epinephrine PF Inj 0.5% 30 ML Vial ONE (11:57)
[2018-01-25] MEDS ORDERED: Lidocaine PF 1% Inj 5 ML Syringe OTHER ONE (12:31)
[2018-01-25] MEDS ORDERED: Phenylephrine/NS 1000 MCG/10ML Syringe IV.PUSH ONE (12:31)
[2018-01-25] MEDS ORDERED: Sodium Chlor 0.9% Inj 500 ML IV.CONT ONE (12:31)
[2018-01-25] MEDS ORDERED: fentaNYL Citrate Inj 250 MCG/5 ML Ampul ONE (15:02)
[2018-01-25] MEDS ORDERED: fentaNYL Citrate Inj 100 MCG/2 ML Ampul ONE (15:09)
[2018-01-25] MEDS ORDERED: Morphine Inj 4 MG/ML Vial ONE (15:10)
[2018-01-25] MEDS ORDERED: Iohexol Inj 350 MG/ML 100 ML Bottle (for RAD Diag) IVCONTRAST ONE (16:46)
[2018-01-25] MEDS ORDERED: *morphine SULFATE 4 MG/ML PERIprocedure ONLY ONE (19:03)
[2018-01-25] MEDS ORDERED: Morphine Inj 4 MG/ML Vial IV.PUSH PRN (19:37)
[2018-01-25] MEDS: Sod Chloride 0.9% Inj 1,000 ML IV.CONT SCH (19:58)
--- NOTE | 2018-01-25 20:40 | MP ---
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 OPERATIVE PROCEDURE: Axillobifemoral bypass and left femoral endarterectomy. Bilateral common iliac artery coiling runoff x2. The coiling of the iliac artery is described in separate dictation by Dr. Veras. SURGEON: Aimee Fink MD INTERVENTIONAL RADIOLOGIST: Itz Veras MD ANESTHESIA: General. ESTIMATED BLOOD LOSS: About 200 mL INDICATIONS FOR PROCEDURE: This 62-year-old gentleman has metastatic lung cancer. He has previously resected brain metastasis and had a lung resection recently. 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 The patient, in addition, has neurologic symptoms and questionable lesions in his spine. In discussion with neurology, hematology, interventional radiology and myself, we ultimately came up with a plan. Patient to have the above noted procedure. DESCRIPTION OF PROCEDURE: The patient was prepped and draped in the usual fashion. The incision was made right subclavian transversely in an oblique fashion, deepened down through the musculature to the level of the neurovascular bundle. Some branches of the brachial plexus are carefully dissected away from the subclavian i.e., axillary artery and then this one is dissected very carefully with blunt dissection and vessel loops are placed around it. This allows for about an inch of subclavian/axillary artery to be exposed, which is sufficient for the procedure. Now, the right groin is a standard oblique incision was made in the groin, deepened down to the level of the femoral artery, which is again dissected and a vessel loop placed around the common femoral, deep and superficial femoral arteries, respectively. Same is done with the left groin. A Isa-Wick tunneler is now placed from proximal neck and subclavian incision down distally to the right groin and through this, the long axillofemoral limb of the PTFE graft is pulled up into the neck. Now, the Isa-Wick tunneler is tunneled from the left groin into the right groin in a curvilinear fashion and then the transverse limb of the [place] graft is pulled from the right to the left groin area where it bifurcates. This one is nicely positioned in such a fashion that there is a nice sweeping direction of the grafts without kinking. Patient at this point given 5 mg of argatroban based on the recent ACT. For the next 45 minutes, Dr. Veras performs his part of the procedure, coiling the iliac arteries through percutaneous approach. At this point, this part of the procedure is done and at the end have axillobifemoral graft. Profunda clamps are placed on the subclavian artery and this one is opened longitudinally with Salvador scissors in about 1 cm length. The 8 mm PTFE graft is now cut under a slightly oblique angle and then sewn in with a running 5-0 Prolene, hereby creating graft to the subclavian artery anastomosis. The clamp is now placed on the graft and subclavian arteries released to the blood flow. The patient is now started on argatroban drip as well with serial ACTs. The right femoral anastomosis is now attended. A Satinsky clamp is placed proximally and profunda clamps on deep femoral artery and then vessels opened longitudinally with Salvador scissors. The Satinsky flushed and there is very poor flow through the right external iliac into the groin. The graft is now cut to size under oblique angle with 11 blade and then sewn in with 5-0 Prolene, creating an anastomosis between the PTFE graft and the common femoral artery overlying the deep femoral artery. The graft is now flushed through the known connected limb and then blood flow was reestablished into the right leg. Finally, the left leg is attended. Again, clamps are applied. Longitudinal incision is made over the common femoral artery. There is a fairly good flow in the left side and there is some backbleeding; however, the patient has a huge plaque in the left common femoral artery. This one is dissected with a Epping dissector and removed. The graft is now sewn in with running 5-0 Prolene under an oblique angle, and prior to completion of the graft this one is flushed out to prevent any debris flushing down the leg. None is found. Anastomosis between the graft and common femoral artery is completed and blood flow is reestablished. The area is irrigated with copious amounts of saline. Meticulous hemostasis obtained and the incision closed in layers with 0 Vicryl and 4-0 Monocryl. Benzoin and Steri-Strips applied. At the end of procedure, the patient has very strong dopplerable pulses in the popliteal arteries and dopplerable strong pulses, dorsalis pedis arteries, some weak ones in posterior tibials. Both feet are nice and warm. The patient tolerated the procedure well. MD JENNIFER López/ct , 07:16 PM , 07:31 PM
[2018-01-25 20:52] LABS: Baso % (Auto) 0.4 % (0.0-2.0); Eos # (Auto) 0.6 th/mm3 (0.0-0.4); Eos % (Auto) 4.3 % (0.0-4.0); Hematocrit 29.4 % (39.0-51.0); Hemoglobin 9.6 gm/dL (13.0-17.0); Lymph # (Auto) 0.9 th/mm3 (1.0-4.8); Lymph % (Auto) 6.6 % (9.0-44.0); Mean Corpuscular HGB Conc 32.6 % (32.0-36.0); Mean Corpuscular Hemoglobin 29.7 pg (27.0-34.0); Mean Corpuscular Volume 90.9 fL (80.0-100.0); Mean Platelet Volume 8.4 fL (7.0-11.0); Mono # (Auto) 1.1 th/mm3 (0.0-0.9); Mono % (Auto) 8.1 % (0.0-8.0); Neut # (Auto) 10.5 th/mm3 (1.8-7.7); Neut % (Auto) 80.6 % (16.0-70.0); Platelet Count 58 th/mm3 (150-450); Red Blood Count 3.23 mil/mm3 (4.50-5.90); Red Cell Distribution Width 18.3 % (11.6-17.2); White Blood Count 13.1 th/mm3 (4.0-11.0)
[2018-01-25 21:03] LABS: Activated Partial Thrombo Time 43.7 sec (24.3-30.1); INR 1.8 Ratio; Prothrombin Time 18.3 sec (9.8-11.6)
[2018-01-25 21:26] LABS: Platelet Morphology Normal (Normal)
[2018-01-25 21:43] LABS: Calcium 7.3 mg/dL (8.5-10.1); Carbon Dioxide 24.2 meq/L (21.0-32.0); Potassium 4.4 meq/L (3.5-5.1)
[2018-01-25 21:57] LABS: Total Protein 6.1 g/dL (6.4-8.2)
[2018-01-25] MEDS: Argatroban Inj 250 MG in Sodium Chlor 0.9% Inj 247.5 ML IV.CONT PRN (22:07)
[2018-01-26] MEDS ORDERED: Pharmacy Ordered Lab Info OTHER ONE (01:45)
[2018-01-26] MEDS: Vancomycin Inj 1,000 MG in Sodium Chlor 0.9% Inj 250 ML IV.SIG SCH (02:15)
[2018-01-26] MEDS: Dextrose 5%/NaCl 0.45% Inj 1,000 ML IV.CONT SCH (04:51)
[2018-01-26 05:33] LABS: Baso % (Auto) 0.3 % (0.0-2.0); Eos # (Auto) 0.1 th/mm3 (0.0-0.4); Eos % (Auto) 0.4 % (0.0-4.0); Hematocrit 25.1 % (39.0-51.0); Hemoglobin 8.4 gm/dL (13.0-17.0); Lymph # (Auto) 1.1 th/mm3 (1.0-4.8); Lymph % (Auto) 7.8 % (9.0-44.0); Mean Corpuscular HGB Conc 33.3 % (32.0-36.0); Mean Corpuscular Hemoglobin 30.2 pg (27.0-34.0); Mean Corpuscular Volume 90.6 fL (80.0-100.0); Mean Platelet Volume 8.6 fL (7.0-11.0); Mono # (Auto) 1.5 th/mm3 (0.0-0.9); Mono % (Auto) 10.9 % (0.0-8.0); Neut # (Auto) 11.1 th/mm3 (1.8-7.7); Neut % (Auto) 80.6 % (16.0-70.0); Platelet Count 48 th/mm3 (150-450); Red Blood Count 2.77 mil/mm3 (4.50-5.90); Red Cell Distribution Width 18.5 % (11.6-17.2); White Blood Count 13.8 th/mm3 (4.0-11.0)
[2018-01-26 05:57] LABS: Alanine Aminotransferase 35 U/L (12-78); Albumin 2.1 g/dL (3.4-5.0); Anion Gap 7 meq/L (5-15); Aspartate Aminotransferase 66 U/L (15-37); Blood Urea Nitrogen 21 mg/dL (7-18); Calcium 7.8 mg/dL (8.5-10.1); Carbon Dioxide 25.9 meq/L (21.0-32.0); Chloride 107 meq/L (98-107); Glomerular Filtration Rate 51 mL/min (>89); Glucose,Random 110 mg/dL (74-106); Phosphorus 3.2 mg/dL (2.5-4.9); Potassium 4.7 meq/L (3.5-5.1); Sodium 140 meq/L (136-145)
[2018-01-26 06:00] LABS: Alkaline Phosphatase 63 U/L (45-117); Total Protein 5.8 g/dL (6.4-8.2)
--- NOTE | 2018-01-26 07:50 | P.PNNEU ---
Subjective Subjective Comments: post op feels goo no pain now in legs Active Medications: Active Medications Hydrocodone Bitart/Acetaminophen (Moore 10/325) 1 tab PO Q8H PRN PRN Reason: PAIN SCALE 6 TO 10 Last Admin: 01/26/18 06:14 Dose: 1 tab Al Hydroxide/Mg Hydroxide (Milk Of Magnjr Liq) 30 ml PO Q12H PRN PRN Reason: Mild Constipation Last Admin: 01/23/18 20:34 Dose: 30 ml Bisacodyl (Dulcolax Supp) 10 mg RECTAL DAILY PRN PRN Reason: SEVERE CONSITIPATION Budesonide/Formoterol Fumarate (Symbicort 160/4.5 Mcg Inh) 2 puff INH BID [facility] Last Admin: 01/25/18 21:18 Dose: 2 puff Clonidine HCl (Catapress-Tts 0.2 Mg Patch.7d) 1 patch T-DERMAL Q7D [facility] Last Admin: 01/25/18 21:19 Dose: 1 patch Folic Acid (Folic Acid) 1 mg PO DAILY [facility] Last Admin: 01/25/18 09:02 Dose: 1 mg Argatroban 250 mg/ Sodium (Chloride) 250 mls @ 0 mls/hr IV.CONT TITRATE PRN; Protocol PRN Reason: Per Protocol Last Admin: 01/25/18 22:07 Dose: 2 mcg/kg/min, 8.29 mls/hr Sodium Chloride (Ns Inj) 1,000 mls @ 0 mls/hr IV.SIG BOLUS [facility] Last Infusion: 01/21/18 18:07 Dose: Infused Dextrose/Sodium Chloride (D5w/1/2 Ns Inj) 1,000 mls @ 80 mls/hr IV.CONT .[id number] [facility] Last Admin: 01/26/18 04:51 Dose: Not Given Vancomycin HCl 1,000 mg/ (Sodium Chloride) 250 mls @ 250 mls/hr IV.SIG Q18H [facility] Last Infusion: 01/26/18 03:35 Dose: Infused Cefepime HCl 2,000 mg/ Sodium (Chloride) 100 mls @ 200 mls/hr IV.SIG Q12H [facility] Last Infusion: 01/26/18 02:15 Dose: Infused Sodium Chloride (Ns Inj) 1,000 mls @ 84 mls/hr IV.CONT .[id number] [facility] Last Admin: 01/25/18 19:58 Dose: 84 mls/hr Lactulose (Lactulose Liq) 30 ml PO DAILY PRN PRN Reason: SEVERE CONSITIPATION Metoprolol Tartrate (Lopressor) 25 mg PO BID [facility] Last Admin: 01/25/18 20:47 Dose: 25 mg Morphine Sulfate (Morphine Inj) 4 mg IV.PUSH Q4H PRN PRN Reason: PAIN 6-10;IF UNABLE TO TAKE PO Naloxone HCl (Narcan Inj) 0.4 mg IV.PUSH UNSCH PRN PRN Reason: SEE LABEL COMMENTS Nitroglycerin (Nitro-Dur 0.4 Mg Patch.24 Hr) 1 patch T-DERMAL DAILY@2000 [facility] Last Admin: 01/25/18 21:19 Dose: 1 patch Pantoprazole Sodium (Protonix) 40 mg PO DAILY [facility] Last Admin: 01/25/18 09:03 Dose: 40 mg Patch Removal (Remove Old Patch) 1 each T-DERMAL DAILY@0800 [facility] Patch Removal (Remove Old Patch) 1 each T-DERMAL Q7D [facility] Pharmacy Profile Note (Vancomycin Consult Pharmacy) 1 each OTHER UNSCH PRN PRN Reason: Pharmacy to dose Pregabalin (Lyrica) 75 mg PO BID [facility] Last Admin: 01/25/18 21:40 Dose: 75 mg Sennosides (Senokot) 17.2 mg PO Q12H PRN PRN Reason: Moderate Constipation Last Admin: 01/21/18 22:30 Dose: 17.2 mg Sodium Chloride (Ns Flush) 2 ml IV.FLUSH PRN PRN PRN Reason: FLUSH AFTER USING IV ACCESS Last Admin: 01/20/18 20:43 Dose: 2 ml Temazepam (Restoril) 15 mg PO HS PRN PRN Reason: INSOMNIA Last Admin: 01/24/18 22:13 Dose: 15 mg Allergies/Adverse Reactions: Allergies Allergy/AdvReac Type Severity Reaction Status Date / Time No Known Allergies Allergy Unverified 01/17/18 11:06 Physical Exam Vital signs: Vital Signs 01/25/18 07:55 01/25/18 09:32 01/25/18 18:10 Temperature 98.3 F 97.8 F Pulse Rate 83 75 Respiratory Rate 17 21 Blood Pressure 178/81 H 137/65 Pulse Oximetry 94 L 94 L 98 01/25/18 18:30 01/25/18 18:45 01/25/18 19:00 Temperature 97.6 F Pulse Rate 86 89 92 H Respiratory Rate 21 21 21 Blood Pressure 185/80 H 165/76 H 157/71 H Pulse Oximetry 98 98 98 01/25/18 19:46 01/25/18 20:00 01/26/18 00:00 Temperature 98.1 F 98.7 F Pulse Rate 87 74 Respiratory Rate 18 16 Blood Pressure 180/79 H 161/69 H Pulse Oximetry 100 98 97 01/26/18 04:00 Temperature 99 F Pulse Rate 84 Respiratory Rate 12 Blood Pressure 174/69 H Pulse Oximetry 98 Intake & Output 01/25/18 01/26/18 01/26/18 18:59 06:59 18:59 Intake Total 5250 / 5250 501 / 501 Output Total 1750 / 1750 1650 / 1650 Balance 3500 / 3500 -1149 / -1149 Weight 73.5 kg Intake: IV 250 / 250 501 / 501 Novastan Inj 250 MG In NS Inj 151 / 151 247.5 ML @ Per Protocol IV.CONT TITRATE PRN Rx#:[id number] Maxipime Inj 2,000 MG In NS Inj 100 / 100 100 ML @ 200 mls/hr IV.SIG Q12H [facility] Rx#:[id number] Vancomycin Inj 1,000 MG In NS 250 / 250 250 / 250 Inj 250 ML @ 250 mls/hr IV.SIG Q18H [facility] Rx#:[id number] Anesthesia Amount 4500 / 4500 Mass Transfusion Protocol 500 / 500 Output: Urine 1500 / 1500 Estimated Blood Loss 250 / 250 Urine Amount (Catheter) 1650 / 1650 Indwelling Urethral Catheter 1650 / 1650 Other: # Voids 1 Narrative: ble 5/5 x left ta 3-/5 - Urinary Catheter Management Indwelling Urethral Catheter Cath placed during this visit: yes Reason for continuing: Hourly intake/output Insertion date: 01/25/18 Insertion time: 12:59 Objective Laboratory Results - last 24 hr 01/24/18 01/24/18 01/25/18 13:02 16:20 03:41 WBC RBC Hgb Hct MCV MCH MCHC RDW Plt Count MPV Prelim Diff (Auto) Neut % (Auto) Lymph % (Auto) [place] % (Auto) Eos % (Auto) Baso % (Auto) Neut # (Auto) Lymph # (Auto) [place] # (Auto) Eos # (Auto) Baso # (Auto) WBC Differential . Diff Scan Auto diff confirmed Differential Comment Platelet Estimate Low L Platelet Morphology Normal PT INR APTT Sodium Potassium Chloride Carbon Dioxide Anion Gap BUN Creatinine Estimated GFR Random Glucose Calcium Prot Corrected Calcium Phosphorus Total Bilirubin AST ALT Alkaline Phosphatase Total Creatine Kinase CK-MB (CK-2) CK-MB (CK-2) % Total Protein Albumin Vancomycin Trough Blood Type O Positive Antibody Screen Negative MTS Gel Crossmatch See Detail Bld Prod Order Comment 01/25/18 01/25/18 01/25/18 03:41 20:00 20:00 WBC 13.1 H RBC 3.23 L Hgb 9.6 L Hct 29.4 L MCV 90.9 MCH 29.7 MCHC 32.6 RDW 18.3 H Plt Count 58 L MPV 8.4 Prelim Diff (Auto) Slide review pending Neut % (Auto) 80.6 H Lymph % (Auto) 6.6 L [place] % (Auto) 8.1 H Eos % (Auto) 4.3 H Baso % (Auto) 0.4 Neut # (Auto) 10.5 H Lymph # (Auto) 0.9 L [place] # (Auto) 1.1 H Eos # (Auto) 0.6 H Baso # (Auto) 0.0 WBC Differential . Diff Scan Auto diff confirmed Differential Comment . Platelet Estimate Low L Platelet Morphology Normal PT 18.3 H INR 1.8 APTT 43.7 H Sodium Potassium Chloride Carbon Dioxide Anion Gap BUN Creatinine Estimated GFR Random Glucose Calcium Prot Corrected Calcium Phosphorus Total Bilirubin AST ALT Alkaline Phosphatase Total Creatine Kinase 509 H CK-MB (CK-2) 7.8 H CK-MB (CK-2) % 1.5 Total Protein Albumin Vancomycin Trough Blood Type Antibody Screen MTS Gel Crossmatch Bld Prod Order Comment 01/25/18 01/26/18 01/26/18 20:00 00:10 01:45 WBC RBC Hgb Hct MCV MCH MCHC RDW Plt Count MPV Prelim Diff (Auto) Neut % (Auto) Lymph % (Auto) [place] % (Auto) Eos % (Auto) Baso % (Auto) Neut # (Auto) Lymph # (Auto) [place] # (Auto) Eos # (Auto) Baso # (Auto) WBC Differential Diff Scan Differential Comment Platelet Estimate Platelet Morphology PT INR APTT 52.2 H Sodium 139 Potassium 4.4 Chloride 105 Carbon Dioxide 24.2 Anion Gap 10 BUN 18 Creatinine 1.39 H Estimated GFR 51 L Random Glucose 131 H Calcium 7.3 L* D Prot Corrected Calcium 7.8 L Phosphorus Total Bilirubin AST ALT Alkaline Phosphatase Total Creatine Kinase CK-MB (CK-2) CK-MB (CK-2) % Total Protein 6.1 L D Albumin Vancomycin Trough 15.2 H Blood Type Antibody Screen MTS Gel Crossmatch Bld Prod Order Comment 01/26/18 01/26/18 01/26/18 05:15 05:15 05:15 WBC 13.8 H RBC 2.77 L Hgb 8.4 L Hct 25.1 L MCV 90.6 MCH 30.2 MCHC 33.3 RDW 18.5 H Plt Count 48 L MPV 8.6 Prelim Diff (Auto) Slide review pending Neut % (Auto) 80.6 H Lymph % (Auto) 7.8 L [place] % (Auto) 10.9 H Eos % (Auto) 0.4 Baso % (Auto) 0.3 Neut # (Auto) 11.1 H Lymph # (Auto) 1.1 [place] # (Auto) 1.5 H Eos # (Auto) 0.1 Baso # (Auto) 0.0 WBC Differential Diff Scan Differential Comment . Platelet Estimate Platelet Morphology PT INR APTT 56.7 H Sodium 140 Potassium 4.7 Chloride 107 Carbon Dioxide 25.9 Anion Gap 7 BUN 21 H Creatinine 1.41 H Estimated GFR 51 L Random Glucose 110 H Calcium 7.8 L Prot Corrected Calcium Phosphorus 3.2 Total Bilirubin 0.5 AST 66 H ALT 35 Alkaline Phosphatase 63 Total Creatine Kinase CK-MB (CK-2) CK-MB (CK-2) % Total Protein 5.8 L Albumin 2.1 L Vancomycin Trough Blood Type Antibody Screen MTS Gel Crossmatch Bld Prod Order Comment Microbiology 01/21/18 10:25 Aerobic Blood Culture - Preliminary Blood - Peripheral No growth in 4 days Anaerobic Blood Culture - Preliminary No growth in 4 days 01/21/18 10:14 Aerobic Blood Culture - Preliminary Blood - Peripheral No growth in 4 days Anaerobic Blood Culture - Preliminary No growth in 4 days Review/Management - Review/Management Plan: D/W DR LING TRIAL OF DDECADRON 4MG QID MRI RPT NOT YET DONE PT EVAL cta showed some blockages but does have flow in ble arterial dr hannah not convinced the thoracic abn is met could be vascular? i dw neurorad check cpk labs hit rx per dr pablo hernandez recently fu echo some infarct in kidney ? 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 will have to repeat mri t spine concerned with new weak left ankle 01/22/18 mri t spine no change looks more peripheral and not in cord neurorads did not think this was a cord avm vascular feels sx not from aortic dz with the left foot drop need emg and worry about carcinomatous meningits needs LP when able i will dw heme about plts try lyrica and neurontin not helping 01/23/18 no major change emg pend try decadron check cpk similar sx to a diabetic amyotrophy picture check mri of the ls plexus and pelvis 01/24/18 pain much better plt 49k should be able to do LP soon maybe a llittle stronger left ta ? aseptic necrosis hip so will hold further steroids and please have heme order LP jermaine when cleared plexus mri neg 01/25/18 i [facility] vascular and dr shah no need to do LP now as cannot rx with chemo so surgery for what was felt yest to be ischemia sudden change watch renal fx emg pend 01/25/18/ doing well post op if pain does not return then yessy vascular creat 1.4 plt down a little legs warm looks well will fu monday if stillhere. emg possibly today o/w i will have to do o/p
--- NOTE | 2018-01-26 08:41 | P.CONREH ---
History of Present Illness Primary Care Provider: Crescencio Kelly MD Family Provider: Crescencio Kelly MD Chief Complaint: Intermittent pain of the lower extremities PMFSH - History History Provided By: Patient - Medical History Medical History: Medical History (Last Reviewed 01/24/18 @ 07:58 by Lexus Potts) Brain tumor FHx: chemotherapy Lung cancer Primary cancer of left lower lobe of lung - Surgical History Surgical History: Surgical History (Last Reviewed 01/24/18 @ 07:58 by Lexus Potts) History of tympanoplasty - Family History Family History: Family History (Last Reviewed 01/17/18 @ 19:36 by Antwon Blanton MD) Other Cancer - Tobacco History Second Hand Smoke Exposure: No Tobacco Use In Past 30 Days: No Smoking Status: Former smoker Tobacco Type: Cigarettes Packs Per Day: 2 Years Smoked: 45 Smoking End Date: 08/07/17 - Alcohol History How Often Do You Have a Drink Containing Alcohol: 2 to 3 times a week - Substance Use History Substance History: No History of Abuse - Travel History History of Recent Travel: No Recent Travel in the [place] Within the Last 8 Weeks: No Recent Travel Out of the Country Within the Last 8 Weeks: No - Immunization History Tetanus Immunization: Unsure Hx Influenza Vaccine This Season: No Medications and Allergies Active Medications: Active Medications Hydrocodone Bitart/Acetaminophen ([place] 10/325) 1 tab PO Q8H PRN PRN Reason: PAIN SCALE 6 TO 10 Last Admin: 01/26/18 06:14 Dose: 1 tab Al Hydroxide/Mg Hydroxide (Milk Of Magnjr Liq) 30 ml PO Q12H PRN PRN Reason: Mild Constipation Last Admin: 01/23/18 20:34 Dose: 30 ml Bisacodyl (Dulcolax Supp) 10 mg RECTAL DAILY PRN PRN Reason: SEVERE CONSITIPATION Budesonide/Formoterol Fumarate (Symbicort 160/4.5 Mcg Inh) 2 puff INH BID [facility] Last Admin: 01/25/18 21:18 Dose: 2 puff Clonidine HCl (Catapress-Tts 0.2 Mg Patch.7d) 1 patch T-DERMAL Q7D [facility] Last Admin: 01/25/18 21:19 Dose: 1 patch Folic Acid (Folic Acid) 1 mg PO DAILY [facility] Last Admin: 01/25/18 09:02 Dose: 1 mg Argatroban 250 mg/ Sodium (Chloride) 250 mls @ 0 mls/hr IV.CONT TITRATE PRN; Protocol PRN Reason: Per Protocol Last Admin: 01/25/18 22:07 Dose: 2 mcg/kg/min, 8.29 mls/hr Sodium Chloride (Ns Inj) 1,000 mls @ 0 mls/hr IV.SIG BOLUS [facility] Last Infusion: 01/21/18 18:07 Dose: Infused Dextrose/Sodium Chloride (D5w/1/2 Ns Inj) 1,000 mls @ 80 mls/hr IV.CONT .[id number] [facility] Last Admin: 01/26/18 04:51 Dose: Not Given Vancomycin HCl 1,000 mg/ (Sodium Chloride) 250 mls @ 250 mls/hr IV.SIG Q18H [facility] Last Infusion: 01/26/18 03:35 Dose: Infused Cefepime HCl 2,000 mg/ Sodium (Chloride) 100 mls @ 200 mls/hr IV.SIG Q12H [facility] Last Infusion: 01/26/18 02:15 Dose: Infused Sodium Chloride (Ns Inj) 1,000 mls @ 84 mls/hr IV.CONT .[id number] [facility] Last Admin: 01/25/18 19:58 Dose: 84 mls/hr Lactulose (Lactulose Liq) 30 ml PO DAILY PRN PRN Reason: SEVERE CONSITIPATION Metoprolol Tartrate (Lopressor) 25 mg PO BID [facility] Last Admin: 01/25/18 20:47 Dose: 25 mg Morphine Sulfate (Morphine Inj) 4 mg IV.PUSH Q4H PRN PRN Reason: PAIN 6-10;IF UNABLE TO TAKE PO Naloxone HCl (Narcan Inj) 0.4 mg IV.PUSH UNSCH PRN PRN Reason: SEE LABEL COMMENTS Nitroglycerin (Nitro-Dur 0.4 Mg Patch.24 Hr) 1 patch T-DERMAL DAILY@1999 [facility] Last Admin: 01/25/18 21:19 Dose: 1 patch Pantoprazole Sodium (Protonix) 40 mg PO DAILY [facility] Last Admin: 01/25/18 09:03 Dose: 40 mg Patch Removal (Remove Old Patch) 1 each T-DERMAL DAILY@0800 [facility] Patch Removal (Remove Old Patch) 1 each T-DERMAL Q7D [facility] Pharmacy Profile Note (Vancomycin Consult Pharmacy) 1 each OTHER UNSCH PRN PRN Reason: Pharmacy to dose Pregabalin (Lyrica) 75 mg PO BID [facility] Last Admin: 01/25/18 21:40 Dose: 75 mg Sennosides (Senokot) 17.2 mg PO Q12H PRN PRN Reason: Moderate Constipation Last Admin: 01/21/18 22:30 Dose: 17.2 mg Sodium Chloride (Ns Flush) 2 ml IV.FLUSH PRN PRN PRN Reason: FLUSH AFTER USING IV ACCESS Last Admin: 01/20/18 20:43 Dose: 2 ml Temazepam (Restoril) 15 mg PO HS PRN PRN Reason: INSOMNIA Last Admin: 01/24/18 22:13 Dose: 15 mg Allergies Allergy/AdvReac Type Severity Reaction Status Date / Time No Known Allergies Allergy Unverified 01/17/18 11:06 Home Medications Medication Instructions Recorded Confirmed Type acetaminophen 500 mg PO Q8HR 01/17/18 01/17/18 History budesonide-formoterol [Symbicort] 2 puff INHALATION BID 01/17/18 01/17/18 History folic acid 1 mg PO DAILY 01/17/18 01/17/18 History gabapentin 100 mg PO DAILY 01/17/18 01/17/18 History ibuprofen [Motrin IB] 800 mg PO TID 01/17/18 01/17/18 History [id number]-[id number]-0-[id number]-ekn-yajujsi-ast 1 cap PO DAILY 01/17/18 01/17/18 History [krill oil] metoprolol tartrate 25 mg PO BID 01/17/18 01/17/18 History multivitamin 1 tab PO DAILY 01/17/18 01/17/18 History omeprazole 40 mg PO DAILY 01/17/18 01/17/18 History oxycodone 10 mg PO Q4-6H 01/17/18 01/17/18 History tramadol 50 mg PO Q6H 01/17/18 01/17/18 History Exam - Physical Examination Vital Signs / I&O: Vital Signs 01/25/18 09:32 01/25/18 18:10 01/25/18 18:30 Temperature 97.8 F Pulse Rate 75 86 Respiratory Rate 21 21 Blood Pressure 137/65 185/80 H Pulse Oximetry 94 L 98 98 01/25/18 18:45 01/25/18 19:00 01/25/18 19:46 Temperature 97.6 F Pulse Rate 89 92 H Respiratory Rate 21 21 Blood Pressure 165/76 H 157/71 H Pulse Oximetry 98 98 100 01/25/18 20:00 01/26/18 00:00 01/26/18 04:00 Temperature 98.1 F 98.7 F 99 F Pulse Rate 87 74 84 Respiratory Rate 18 16 12 Blood Pressure 180/79 H 161/69 H 174/69 H Pulse Oximetry 98 97 98 Intake & Output 01/25/18 01/26/18 01/26/18 18:59 06:59 18:59 Intake Total 5250 / 5250 501 / 501 Output Total 1750 / 1750 1650 / 1650 Balance 3500 / 3500 -1149 / -1149 Weight 162 lb 0.636 oz Intake: IV 250 / 250 501 / 501 Novastan Inj 250 MG In NS Inj 151 / 151 247.5 ML @ Per Protocol IV.CONT TITRATE PRN Rx#:[id number] Maxipime Inj 2,000 MG In NS Inj 100 / 100 100 ML @ 200 mls/hr IV.SIG Q12H [facility] Rx#:[id number] Vancomycin Inj 1,000 MG In NS 250 / 250 250 / 250 Inj 250 ML @ 250 mls/hr IV.SIG Q18H [facility] Rx#:[id number] Anesthesia Amount 4500 / 4500 Mass Transfusion Protocol 500 / 500 Output: Urine 1500 / 1500 Estimated Blood Loss 250 / 250 Urine Amount (Catheter) 1650 / 1650 Indwelling Urethral Catheter 1650 / 1650 Other: # Voids 1 Intake & Output 01/24/18 01/25/18 01/26/18 01/27/18 06:59 06:59 06:59 06:59 Intake Total 5179.2 / 5179.2 1978 5751 / 5751 Output Total 680 / 680 3400 / 3400 Balance 4499.2 / 4499.2 1978 2351 / 2351 Weight 158 lb 4.67 oz 155 lb 13.869 oz 162 lb 0.636 oz Date of Last Bowel Movement: 01/19/18 Results - Labs CBC & Chem 7: 01/26/18 05:15 01/26/18 05:15 Labs: Laboratory Results - last 24 hr 01/24/18 01/24/18 01/25/18 13:02 16:20 03:41 WBC RBC Hgb Hct MCV MCH MCHC RDW Plt Count MPV Prelim Diff (Auto) Neut % (Auto) Lymph % (Auto) [place] % (Auto) Eos % (Auto) Baso % (Auto) Neut # (Auto) Lymph # (Auto) [place] # (Auto) Eos # (Auto) Baso # (Auto) WBC Differential . Diff Scan Auto diff confirmed Differential Comment Platelet Estimate Low L Platelet Morphology Normal PT INR APTT Sodium Potassium Chloride Carbon Dioxide Anion Gap BUN Creatinine Estimated GFR Random Glucose Calcium Prot Corrected Calcium Phosphorus Total Bilirubin AST ALT Alkaline Phosphatase Total Creatine Kinase CK-MB (CK-2) CK-MB (CK-2) % Total Protein Albumin Vancomycin Trough Blood Type O Positive Antibody Screen Negative MTS Gel Crossmatch See Detail Bld Prod Order Comment 01/25/18 01/25/18 01/25/18 03:41 20:00 20:00 WBC 13.1 H RBC 3.23 L Hgb 9.6 L Hct 29.4 L MCV 90.9 MCH 29.7 MCHC 32.6 RDW 18.3 H Plt Count 58 L MPV 8.4 Prelim Diff (Auto) Slide review pending Neut % (Auto) 80.6 H Lymph % (Auto) 6.6 L [place] % (Auto) 8.1 H Eos % (Auto) 4.3 H Baso % (Auto) 0.4 Neut # (Auto) 10.5 H Lymph # (Auto) 0.9 L [place] # (Auto) 1.1 H Eos # (Auto) 0.6 H Baso # (Auto) 0.0 WBC Differential . Diff Scan Auto diff confirmed Differential Comment . Platelet Estimate Low L Platelet Morphology Normal PT 18.3 H INR 1.8 APTT 43.7 H Sodium Potassium Chloride Carbon Dioxide Anion Gap BUN Creatinine Estimated GFR Random Glucose Calcium Prot Corrected Calcium Phosphorus Total Bilirubin AST ALT Alkaline Phosphatase Total Creatine Kinase 509 H CK-MB (CK-2) 7.8 H CK-MB (CK-2) % 1.5 Total Protein Albumin Vancomycin Trough Blood Type Antibody Screen MTS Gel Crossmatch Bld Prod Order Comment 01/25/18 01/26/18 01/26/18 20:00 00:10 01:45 WBC RBC Hgb Hct MCV MCH MCHC RDW Plt Count MPV Prelim Diff (Auto) Neut % (Auto) Lymph % (Auto) [place] % (Auto) Eos % (Auto) Baso % (Auto) Neut # (Auto) Lymph # (Auto) [place] # (Auto) Eos # (Auto) Baso # (Auto) WBC Differential Diff Scan Differential Comment Platelet Estimate Platelet Morphology PT INR APTT 52.2 H Sodium 139 Potassium 4.4 Chloride 105 Carbon Dioxide 24.2 Anion Gap 10 BUN 18 Creatinine 1.39 H Estimated GFR 51 L Random Glucose 131 H Calcium 7.3 L* D Prot Corrected Calcium 7.8 L Phosphorus Total Bilirubin AST ALT Alkaline Phosphatase Total Creatine Kinase CK-MB (CK-2) CK-MB (CK-2) % Total Protein 6.1 L D Albumin Vancomycin Trough 15.2 H Blood Type Antibody Screen MTS Gel Crossmatch Bld Prod Order Comment 01/26/18 01/26/18 01/26/18 05:15 05:15 05:15 WBC 13.8 H RBC 2.77 L Hgb 8.4 L Hct 25.1 L MCV 90.6 MCH 30.2 MCHC 33.3 RDW 18.5 H Plt Count 48 L MPV 8.6 Prelim Diff (Auto) Slide review pending Neut % (Auto) 80.6 H Lymph % (Auto) 7.8 L [place] % (Auto) 10.9 H Eos % (Auto) 0.4 Baso % (Auto) 0.3 Neut # (Auto) 11.1 H Lymph # (Auto) 1.1 [place] # (Auto) 1.5 H Eos # (Auto) 0.1 Baso # (Auto) 0.0 WBC Differential Diff Scan Differential Comment . Platelet Estimate Platelet Morphology PT INR APTT 56.7 H Sodium 140 Potassium 4.7 Chloride 107 Carbon Dioxide 25.9 Anion Gap 7 BUN 21 H Creatinine 1.41 H Estimated GFR 51 L Random Glucose 110 H Calcium 7.8 L Prot Corrected Calcium Phosphorus 3.2 Total Bilirubin 0.5 AST 66 H ALT 35 Alkaline Phosphatase 63 Total Creatine Kinase CK-MB (CK-2) CK-MB (CK-2) % Total Protein 5.8 L Albumin 2.1 L Vancomycin Trough Blood Type Antibody Screen MTS Gel Crossmatch Bld Prod Order Comment Assessment and Plan - Plan NCS/EMG done. Full note to follow. Left Sural SNAP: peak lat 3.7 Amp 11.6 Lt peroneal CMAP NR Lt Tibial CMAP onset 7.2 Amp 6.3 Rt peroneal CMAP onset 7.9 Amp 1.2 Rt tibial CMAP onset 6.5 Amp 4.6 EMG: on Lt leg Quad: normal Tib Ant: normal Ext Hallucis longus: normal Gastroc: normal Impression: 1. 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 No evidence of denervation potentials. No evidence of lumbar radiculopathy or peroneal neuropathy.
[2018-01-26 08:49] LABS: Platelet Morphology Normal (Normal)
--- NOTE | 2018-01-26 09:06 | P.CONCC ---
History of Present Illness Consult date: 01/26/18 Requesting Physician: Aimee Fink Reason for Consult: CRITICAL CARE Primary Care Provider: Crescencio Kelly MD Family Provider: Crescencio Kelly MD Chief Complaint: Intermittent pain of the lower extremities History of Present Illness: 62-year-old male with metastatic non-small cell lung carcinoma, HIV, aortoiliac disease with bilateral lower extremity pain with extensive workup done by neurology, neurosurgery, vascular surgery and being followed by hematology on argatroban drip for HHT who underwent bilateral axillofemoral bypass on 01/[address] Baires with retrograde embolization done by Dr. cisse from interventional radiology under general anesthesia, tolerated procedure well was subsequently extubated and transferred to [facility]. Critical care consult was requested by Dr. Baires. Patient appears to have done well overnight. He denies any chest pain shortness of breath nausea vomiting or abdominal discomfort. His lower extremities feel much better. He is not in any acute distress at the time of my evaluation. No episodes of hypotension following surgery. PMFSH - History History Provided By: Patient - Medical History Medical History: Medical History (Last Reviewed 01/24/18 @ 07:58 by Lexus Potts) Brain tumor FHx: chemotherapy Lung cancer Primary cancer of left lower lobe of lung - Surgical History Surgical History: Surgical History (Last Reviewed 01/24/18 @ 07:58 by Lexus Potts) History of tympanoplasty - Family History Family History: Family History (Last Reviewed 01/17/18 @ 19:36 by Antwon Blanton MD) Other Cancer - Tobacco History Second Hand Smoke Exposure: No Tobacco Use In Past 30 Days: No Smoking Status: Former smoker Tobacco Type: Cigarettes Packs Per Day: 2 Years Smoked: 45 Smoking End Date: 08/07/17 - Alcohol History How Often Do You Have a Drink Containing Alcohol: 2 to 3 times a week - Substance Use History Substance History: No History of Abuse - Travel History History of Recent Travel: No Recent Travel in the [place] Within the Last 8 Weeks: No Recent Travel Out of the Country Within the Last 8 Weeks: No - Immunization History Tetanus Immunization: Unsure Hx Influenza Vaccine This Season: No Medications and Allergies Active Medications: Active Medications Hydrocodone Bitart/Acetaminophen ([place] 10/325) 1 tab PO Q8H PRN PRN Reason: PAIN SCALE 6 TO 10 Last Admin: 01/26/18 06:14 Dose: 1 tab Al Hydroxide/Mg Hydroxide (Milk Of Magnesia Liq) 30 ml PO Q12H PRN PRN Reason: Mild Constipation Last Admin: 01/23/18 20:34 Dose: 30 ml Bisacodyl (Dulcolax Supp) 10 mg RECTAL DAILY PRN PRN Reason: SEVERE CONSITIPATION Budesonide/Formoterol Fumarate (Symbicort 160/4.5 Mcg Inh) 2 puff INH BID [facility] Last Admin: 01/25/18 21:18 Dose: 2 puff Clonidine HCl (Catapress-Tts 0.2 Mg Patch.7d) 1 patch T-DERMAL Q7D [facility] Last Admin: 01/25/18 21:19 Dose: 1 patch Folic Acid (Folic Acid) 1 mg PO DAILY [facility] Last Admin: 01/25/18 09:02 Dose: 1 mg Argatroban 250 mg/ Sodium (Chloride) 250 mls @ 0 mls/hr IV.CONT TITRATE PRN; Protocol PRN Reason: Per Protocol Last Admin: 01/25/18 22:07 Dose: 2 mcg/kg/min, 8.29 mls/hr Sodium Chloride (Ns Inj) 1,000 mls @ 0 mls/hr IV.SIG BOLUS [facility] Last Infusion: 01/21/18 18:07 Dose: Infused Dextrose/Sodium Chloride (D5w/1/2 Ns Inj) 1,000 mls @ 80 mls/hr IV.CONT .[id number] [facility] Last Admin: 01/26/18 04:51 Dose: Not Given Vancomycin HCl 1,000 mg/ (Sodium Chloride) 250 mls @ 250 mls/hr IV.SIG Q18H [facility] Last Infusion: 01/26/18 03:35 Dose: Infused Cefepime HCl 2,000 mg/ Sodium (Chloride) 100 mls @ 200 mls/hr IV.SIG Q12H [facility] Last Infusion: 01/26/18 02:15 Dose: Infused Sodium Chloride (Ns Inj) 1,000 mls @ 84 mls/hr IV.CONT .[id number] [facility] Last Admin: 01/25/18 19:58 Dose: 84 mls/hr Lactulose (Lactulose Liq) 30 ml PO DAILY PRN PRN Reason: SEVERE CONSITIPATION Metoprolol Tartrate (Lopressor) 25 mg PO BID [facility] Last Admin: 01/25/18 20:47 Dose: 25 mg Morphine Sulfate (Morphine Inj) 4 mg IV.PUSH Q4H PRN PRN Reason: PAIN 6-10;IF UNABLE TO TAKE PO Naloxone HCl (Narcan Inj) 0.4 mg IV.PUSH UNSCH PRN PRN Reason: SEE LABEL COMMENTS Nitroglycerin (Nitro-Dur 0.4 Mg Patch.24 Hr) 1 patch T-DERMAL DAILY@1999 [facility] Last Admin: 01/25/18 21:19 Dose: 1 patch Pantoprazole Sodium (Protonix) 40 mg PO DAILY [facility] Last Admin: 01/25/18 09:03 Dose: 40 mg Patch Removal (Remove Old Patch) 1 each T-DERMAL DAILY@0800 [facility] Patch Removal (Remove Old Patch) 1 each T-DERMAL Q7D [facility] Pharmacy Profile Note (Vancomycin Consult Pharmacy) 1 each OTHER UNSCH PRN PRN Reason: Pharmacy to dose Pregabalin (Lyrica) 75 mg PO BID [facility] Last Admin: 01/25/18 21:40 Dose: 75 mg Sennosides (Senokot) 17.2 mg PO Q12H PRN PRN Reason: Moderate Constipation Last Admin: 01/21/18 22:30 Dose: 17.2 mg Sodium Chloride (Ns Flush) 2 ml IV.FLUSH PRN PRN PRN Reason: FLUSH AFTER USING IV ACCESS Last Admin: 01/20/18 20:43 Dose: 2 ml Temazepam (Restoril) 15 mg PO HS PRN PRN Reason: INSOMNIA Last Admin: 01/24/18 22:13 Dose: 15 mg Allergies Allergy/AdvReac Type Severity Reaction Status Date / Time No Known Allergies Allergy Unverified 01/17/18 11:06 Home Medications Medication Instructions Recorded Confirmed Type acetaminophen 500 mg PO Q8HR 01/17/18 01/17/18 History budesonide-formoterol [Symbicort] 2 puff INHALATION BID 01/17/18 01/17/18 History folic acid 1 mg PO DAILY 01/17/18 01/17/18 History gabapentin 100 mg PO DAILY 01/17/18 01/17/18 History ibuprofen [Motrin IB] 800 mg PO TID 01/17/18 01/17/18 History [id number]-1-[id number]-hnm-[id number]-ast 1 cap PO DAILY 01/17/18 01/17/18 History [krill oil] metoprolol tartrate 25 mg PO BID 01/17/18 01/17/18 History multivitamin 1 tab PO DAILY 01/17/18 01/17/18 History omeprazole 40 mg PO DAILY 01/17/18 01/17/18 History oxycodone 10 mg PO Q4-6H 01/17/18 01/17/18 History tramadol 50 mg PO Q6H 01/17/18 01/17/18 History Physical Exam Vital signs: Vital Signs 01/25/18 09:32 01/25/18 18:10 01/25/18 18:30 Temperature 97.8 F Pulse Rate 75 86 Respiratory Rate 21 21 Blood Pressure 137/65 185/80 H Pulse Oximetry 94 L 98 98 01/25/18 18:45 01/25/18 19:00 01/25/18 19:46 Temperature 97.6 F Pulse Rate 89 92 H Respiratory Rate 21 21 Blood Pressure 165/76 H 157/71 H Pulse Oximetry 98 98 100 01/25/18 20:00 01/26/18 00:00 01/26/18 04:00 Temperature 98.1 F 98.7 F 99 F Pulse Rate 87 74 84 Respiratory Rate 18 16 12 Blood Pressure 180/79 H 161/69 H 174/69 H Pulse Oximetry 98 97 98 Intake & Output 01/25/18 01/26/18 01/26/18 18:59 06:59 18:59 Intake Total 5250 / 5250 501 / 501 Output Total 1750 / 1750 1650 / 1650 Balance 3500 / 3500 -1149 / -1149 Weight 73.5 kg Intake: IV 250 / 250 501 / 501 Novastan Inj 250 MG In NS Inj 151 / 151 247.5 ML @ Per Protocol IV.CONT TITRATE PRN Rx#:[id number] Maxipime Inj 2,000 MG In NS Inj 100 / 100 100 ML @ 200 mls/hr IV.SIG Q12H [facility] Rx#:[id number] Vancomycin Inj 1,000 MG In NS 250 / 250 250 / 250 Inj 250 ML @ 250 mls/hr IV.SIG Q18H [facility] Rx#:[id number] Anesthesia Amount 4500 / 4500 Mass Transfusion Protocol 500 / 500 Output: Urine 1500 / 1500 Estimated Blood Loss 250 / 250 Urine Amount (Catheter) 1650 / 1650 Indwelling Urethral Catheter 1649 Other: # Voids 1 Narrative: HEENT/Neuro: No pallor or icterus, tongue moist, [place], Awake alert oriented 3 , nonfocal grossly, moving all 4 extremities Neck: No JVD Chest/pulmonary: CTA bilaterally Cardiovascular: S1-S2 regular no gallop or murmur GI/abdomen: Soft, nontender, bowel sounds present Extremities: Warm bilaterally, bilateral edema - Urinary Catheter Management Indwelling Urethral Catheter Cath placed during this visit: yes Reason for continuing: Hourly intake/output Insertion date: 01/25/18 Insertion time: 12:59 Assessment and Plan - Assessment and Plan Plan: LE ischemia s/p bilat ax-fem bypass 01/26 Metastatic lung CA EVON HIT SIRS/ sepsis Afib HTN Plan: Admitted to ICU postoperatively by Dr. Baires. -On her Ditropan for anticoagulation -Continue antihypertensives. On clonidine patch and metoprolol. -Advance p.o. diet -On empiric antibiotic coverage with IV vancomycin and cefepime. -Watch for hyperglycemia, SSI for glycemic control if needed -Being followed by neurology/heme along/Dr. Baires/family medicine service -Follow intake output, monitor and replete electrolytes, follow BUN/creatinine Critical care will be available as needed. Signing off at this time. No active critical CARE issues.
[2018-01-26] MEDS: Sod Chloride 0.9% Inj 1,000 ML IV.CONT SCH (09:39)
[2018-01-26] MEDS: Folic Acid 1 MG Tablet PO SCH (09:40)
[2018-01-26] MEDS: Pregabalin 75 MG Capsule PO SCH ×2 (09:41→21:46)
[2018-01-26] MEDS: Budesonide-Formoterol 160/4.5 MCG 6 GM Inhaler INH SCH (09:41)
[2018-01-26] MEDS: Metoprolol Tartrate 25 MG Tablet PO SCH ×2 (09:41→21:46)
--- NOTE | 2018-01-26 09:42 | P.PNFP ---
Subjective Interval history: pt reports aware of RUE "missing its brad" this am, unsure of time of onset, first noticed around 6am in retrospect (with 's input), no loss of sensation , with exception of baseline LLE diminished sensation as before. No difficulty with speech, tolerating PO well, no MEJIA or visual change. 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 LLE Pain 2/10 max, doesn't feel he needs Weiner any longer, morphine very helpful when pain was bad yesterday. <Stephanie Calzada - 01/26/18 12:14> Patient seen and examined this morning. Patient underwent successful bilateral axillofemoral bypass as well as retrograde embolization yesterday. Tolerated the procedure well. No complications overnight. This morning, reports feeling well. States the pain in his lower extremities is significantly less. Has some tingling sensation, but overall feels improved. States the numbness is less as well. Denies any other new symptoms. Denies any fever/chills, chest pain, shortness breath, abdominal pain. <Richard Kuo - 01/26/18 09:42> Results - Labs Result diagrams: 01/26/18 05:15 01/26/18 05:15 <Richard Kuo - 01/26/18 09:42> Abnormal lab results 01/24/18 01/25/18 01/25/18 Range/Units 16:20 20:00 20:00 WBC 13.1 H (4.0-11.0) th/mm3 RBC 3.23 L (4.50-5.90) mil/mm3 Hgb 9.6 L (13.0-17.0) gm/dL Hct 29.4 L (39.0-51.0) % RDW 18.3 H (11.6-17.2) % Plt Count 58 L (150-450) th/mm3 Neut % (Auto) 80.6 H (16.0-70.0) % Lymph % (Auto) 6.6 L (9.0-44.0) % Casey % (Auto) 8.1 H (0.0-8.0) % Eos % (Auto) 4.3 H (0.0-4.0) % Neut # (Auto) 10.5 H (1.8-7.7) th/mm3 Lymph # (Auto) 0.9 L (1.0-4.8) th/mm3 Casey # (Auto) 1.1 H (0.0-0.9) th/mm3 Eos # (Auto) 0.6 H (0.0-0.4) th/mm3 Platelet Estimate Low L (Normal) PT 18.3 H (9.8-11.6) sec APTT 43.7 H (24.3-30.1) sec BUN (7-18) mg/dL Creatinine (0.60-1.30) mg/dL Estimated GFR (>89) mL/min Random Glucose (74-106) mg/dL Calcium (8.5-10.1) mg/dL Prot Corrected Calcium (8.5-10.1) mg/dL AST (15-37) U/L Total Protein (6.4-8.2) g/dL Albumin (3.4-5.0) g/dL Vancomycin Trough (5.0-10.0) mcg/mL MTS Gel Crossmatch See Detail 01/25/18 01/26/18 01/26/18 Range/Units 20:00 00:10 01:45 WBC (4.0-11.0) th/mm3 RBC (4.50-5.90) mil/mm3 Hgb (13.0-17.0) gm/dL Hct (39.0-51.0) % RDW (11.6-17.2) % Plt Count (150-450) th/mm3 Neut % (Auto) (16.0-70.0) % Lymph % (Auto) (9.0-44.0) % Casey % (Auto) (0.0-8.0) % Eos % (Auto) (0.0-4.0) % Neut # (Auto) (1.8-7.7) th/mm3 Lymph # (Auto) (1.0-4.8) th/mm3 Casey # (Auto) (0.0-0.9) th/mm3 Eos # (Auto) (0.0-0.4) th/mm3 Platelet Estimate (Normal) PT (9.8-11.6) sec APTT 52.2 H (24.3-30.1) sec BUN (7-18) mg/dL Creatinine 1.39 H (0.60-1.30) mg/dL Estimated GFR 51 L (>89) mL/min Random Glucose 131 H (74-106) mg/dL Calcium 7.3 L* D (8.5-10.1) mg/dL Prot Corrected Calcium 7.8 L (8.5-10.1) mg/dL AST (15-37) U/L Total Protein 6.1 L D (6.4-8.2) g/dL Albumin (3.4-5.0) g/dL Vancomycin Trough 15.2 H (5.0-10.0) mcg/mL MTS Gel Crossmatch 01/26/18 01/26/18 01/26/18 Range/Units 05:15 05:15 05:15 WBC 13.8 H (4.0-11.0) th/mm3 RBC 2.77 L (4.50-5.90) mil/mm3 Hgb 8.4 L (13.0-17.0) gm/dL Hct 25.1 L (39.0-51.0) % RDW 18.5 H (11.6-17.2) % Plt Count 48 L (150-450) th/mm3 Neut % (Auto) 80.6 H (16.0-70.0) % Lymph % (Auto) 7.8 L (9.0-44.0) % Casey % (Auto) 10.9 H (0.0-8.0) % Eos % (Auto) (0.0-4.0) % Neut # (Auto) 11.1 H (1.8-7.7) th/mm3 Lymph # (Auto) (1.0-4.8) th/mm3 Casey # (Auto) 1.5 H (0.0-0.9) th/mm3 Eos # (Auto) (0.0-0.4) th/mm3 Platelet Estimate Low L (Normal) PT (9.8-11.6) sec APTT 56.7 H (24.3-30.1) sec BUN 21 H (7-18) mg/dL Creatinine 1.41 H (0.60-1.30) mg/dL Estimated GFR 51 L (>89) mL/min Random Glucose 110 H (74-106) mg/dL Calcium 7.8 L (8.5-10.1) mg/dL Prot Corrected Calcium (8.5-10.1) mg/dL AST 66 H (15-37) U/L Total Protein 5.8 L (6.4-8.2) g/dL Albumin 2.1 L (3.4-5.0) g/dL Vancomycin Trough (5.0-10.0) mcg/mL MTS Gel Crossmatch Short CBC 01/25/18 01/26/18 Range/Units 20:00 05:15 WBC 13.1 H 13.8 H (4.0-11.0) th/mm3 Hgb 9.6 L 8.4 L (13.0-17.0) gm/dL Hct 29.4 L 25.1 L (39.0-51.0) % Plt Count 58 L 48 L (150-450) th/mm3 BMP 01/25/18 01/26/18 20:00 05:15 Sodium 139 140 Potassium 4.4 4.7 Chloride 105 107 Carbon Dioxide 24.2 25.9 BUN 18 21 H Creatinine 1.39 H 1.41 H Calcium 7.3 L* D 7.8 L Liver Function 01/26/18 Range/Units 05:15 Total Bilirubin 0.5 (0.2-1.0) mg/dL AST 66 H (15-37) U/L ALT 35 (12-78) U/L Alkaline Phosphatase 63 (45-117) U/L Albumin 2.1 L (3.4-5.0) g/dL <Stephanie Calzada - 01/26/18 14:19> Abnormal lab results 01/24/18 01/25/18 01/25/18 Range/Units 16:20 03:41 20:00 WBC 13.1 H (4.0-11.0) th/mm3 RBC 3.23 L (4.50-5.90) mil/mm3 Hgb 9.6 L (13.0-17.0) gm/dL Hct 29.4 L (39.0-51.0) % RDW 18.3 H (11.6-17.2) % Plt Count 58 L (150-450) th/mm3 Neut % (Auto) 80.6 H (16.0-70.0) % Lymph % (Auto) 6.6 L (9.0-44.0) % Casey % (Auto) 8.1 H (0.0-8.0) % Eos % (Auto) 4.3 H (0.0-4.0) % Neut # (Auto) 10.5 H (1.8-7.7) th/mm3 Lymph # (Auto) 0.9 L (1.0-4.8) th/mm3 Casey # (Auto) 1.1 H (0.0-0.9) th/mm3 Eos # (Auto) 0.6 H (0.0-0.4) th/mm3 Platelet Estimate Low L (Normal) PT (9.8-11.6) sec APTT (24.3-30.1) sec BUN (7-18) mg/dL Creatinine (0.60-1.30) mg/dL Estimated GFR (>89) mL/min Random Glucose (74-106) mg/dL Calcium (8.5-10.1) mg/dL Prot Corrected Calcium (8.5-10.1) mg/dL AST (15-37) U/L Total Creatine Kinase 509 H (39-308) U/L CK-MB (CK-2) 7.8 H (0.5-3.6) ng/mL Total Protein (6.4-8.2) g/dL Albumin (3.4-5.0) g/dL Vancomycin Trough (5.0-10.0) mcg/mL MTS Gel Crossmatch See Detail 01/25/18 01/25/18 01/26/18 Range/Units 20:00 20:00 00:10 WBC (4.0-11.0) th/mm3 RBC (4.50-5.90) mil/mm3 Hgb (13.0-17.0) gm/dL Hct (39.0-51.0) % RDW (11.6-17.2) % Plt Count (150-450) th/mm3 Neut % (Auto) (16.0-70.0) % Lymph % (Auto) (9.0-44.0) % Casey % (Auto) (0.0-8.0) % Eos % (Auto) (0.0-4.0) % Neut # (Auto) (1.8-7.7) th/mm3 Lymph # (Auto) (1.0-4.8) th/mm3 Casey # (Auto) (0.0-0.9) th/mm3 Eos # (Auto) (0.0-0.4) th/mm3 Platelet Estimate (Normal) PT 18.3 H (9.8-11.6) sec APTT 43.7 H 52.2 H (24.3-30.1) sec BUN (7-18) mg/dL Creatinine 1.39 H (0.60-1.30) mg/dL Estimated GFR 51 L (>89) mL/min Random Glucose 131 H (74-106) mg/dL Calcium 7.3 L* D (8.5-10.1) mg/dL Prot Corrected Calcium 7.8 L (8.5-10.1) mg/dL AST (15-37) U/L Total Creatine Kinase (39-308) U/L CK-MB (CK-2) (0.5-3.6) ng/mL Total Protein 6.1 L D (6.4-8.2) g/dL Albumin (3.4-5.0) g/dL Vancomycin Trough (5.0-10.0) mcg/mL MTS Gel Crossmatch 01/26/18 01/26/18 01/26/18 Range/Units 01:45 05:15 05:15 WBC 13.8 H (4.0-11.0) th/mm3 RBC 2.77 L (4.50-5.90) mil/mm3 Hgb 8.4 L (13.0-17.0) gm/dL Hct 25.1 L (39.0-51.0) % RDW 18.5 H (11.6-17.2) % Plt Count 48 L (150-450) th/mm3 Neut % (Auto) 80.6 H (16.0-70.0) % Lymph % (Auto) 7.8 L (9.0-44.0) % Casey % (Auto) 10.9 H (0.0-8.0) % Eos % (Auto) (0.0-4.0) % Neut # (Auto) 11.1 H (1.8-7.7) th/mm3 Lymph # (Auto) (1.0-4.8) th/mm3 Casey # (Auto) 1.5 H (0.0-0.9) th/mm3 Eos # (Auto) (0.0-0.4) th/mm3 Platelet Estimate Low L (Normal) PT (9.8-11.6) sec APTT (24.3-30.1) sec BUN 21 H (7-18) mg/dL Creatinine 1.41 H (0.60-1.30) mg/dL Estimated GFR 51 L (>89) mL/min Random Glucose 110 H (74-106) mg/dL Calcium 7.8 L (8.5-10.1) mg/dL Prot Corrected Calcium (8.5-10.1) mg/dL AST 66 H (15-37) U/L Total Creatine Kinase (39-308) U/L CK-MB (CK-2) (0.5-3.6) ng/mL Total Protein 5.8 L (6.4-8.2) g/dL Albumin 2.1 L (3.4-5.0) g/dL Vancomycin Trough 15.2 H (5.0-10.0) mcg/mL MTS Gel Crossmatch 01/26/18 Range/Units 05:15 WBC (4.0-11.0) th/mm3 RBC (4.50-5.90) mil/mm3 Hgb (13.0-17.0) gm/dL Hct (39.0-51.0) % RDW (11.6-17.2) % Plt Count (150-450) th/mm3 Neut % (Auto) (16.0-70.0) % Lymph % (Auto) (9.0-44.0) % Casey % (Auto) (0.0-8.0) % Eos % (Auto) (0.0-4.0) % Neut # (Auto) (1.8-7.7) th/mm3 Lymph # (Auto) (1.0-4.8) th/mm3 Casey # (Auto) (0.0-0.9) th/mm3 Eos # (Auto) (0.0-0.4) th/mm3 Platelet Estimate (Normal) PT (9.8-11.6) sec APTT 56.7 H (24.3-30.1) sec BUN (7-18) mg/dL Creatinine (0.60-1.30) mg/dL Estimated GFR (>89) mL/min Random Glucose (74-106) mg/dL Calcium (8.5-10.1) mg/dL Prot Corrected Calcium (8.5-10.1) mg/dL AST (15-37) U/L Total Creatine Kinase (39-308) U/L CK-MB (CK-2) (0.5-3.6) ng/mL Total Protein (6.4-8.2) g/dL Albumin (3.4-5.0) g/dL Vancomycin Trough (5.0-10.0) mcg/mL MTS Gel Crossmatch Short CBC 01/25/18 01/26/18 Range/Units 20:00 05:15 WBC 13.1 H 13.8 H (4.0-11.0) th/mm3 Hgb 9.6 L 8.4 L (13.0-17.0) gm/dL Hct 29.4 L 25.1 L (39.0-51.0) % Plt Count 58 L 48 L (150-450) th/mm3 BMP 01/25/18 01/26/18 20:00 05:15 Sodium 139 140 Potassium 4.4 4.7 Chloride 105 107 Carbon Dioxide 24.2 25.9 BUN 18 21 H Creatinine 1.39 H 1.41 H Calcium 7.3 L* D 7.8 L Cardiac Enzymes 01/25/18 Range/Units 03:41 Total Creatine Kinase 509 H (39-308) U/L CK-MB (CK-2) 7.8 H (0.5-3.6) ng/mL Liver Function 01/26/18 Range/Units 05:15 Total Bilirubin 0.5 (0.2-1.0) mg/dL AST 66 H (15-37) U/L ALT 35 (12-78) U/L Alkaline Phosphatase 63 (45-117) U/L Albumin 2.1 L (3.4-5.0) g/dL <Richard Kuo J - 01/26/18 09:42> Physical Exam Vital signs: Vital Signs 01/25/18 18:10 01/25/18 18:30 01/25/18 18:45 Temperature 97.8 F Pulse Rate 75 86 89 Respiratory Rate 21 21 21 Blood Pressure 137/65 185/80 H 165/76 H Pulse Oximetry 98 98 98 01/25/18 19:00 01/25/18 19:46 01/25/18 20:00 Temperature 97.6 F 98.1 F Pulse Rate 92 H 87 Respiratory Rate 21 18 Blood Pressure 157/71 H 180/79 H Pulse Oximetry 98 100 98 01/26/18 00:00 01/26/18 04:00 Temperature 98.7 F 99 F Pulse Rate 74 84 Respiratory Rate 16 12 Blood Pressure 161/69 H 174/69 H Pulse Oximetry 97 98 Intake & Output 01/25/18 01/26/18 01/26/18 18:59 06:59 18:59 Intake Total 5250 / 5250 501 / 501 Output Total 1750 / 1750 1650 / 1650 Balance 3500 / 3500 -1149 / -1149 Weight 73.5 kg Intake: IV 250 / 250 501 / 501 Novastan Inj 250 MG In NS Inj 151 / 151 247.5 ML @ Per Protocol IV.CONT TITRATE PRN Rx#:[id number] Maxipime Inj 2,000 MG In NS Inj 100 / 100 100 ML @ 200 mls/hr IV.SIG Q12H SHAVONNE Rx#:[id number] Vancomycin Inj 1,000 MG In NS 250 / 250 250 / 250 Inj 250 ML @ 250 mls/hr IV.SIG Q18H SHAVONNE Rx#:[id number] Anesthesia Amount 4500 / 4500 Mass Transfusion Protocol 500 / 500 Output: Urine 1500 / 1500 Estimated Blood Loss 250 / 250 Urine Amount (Catheter) 1650 / 1650 Indwelling Urethral Catheter 1650 / 1650 Other: # Voids 1 Date of Last Bowel Movement 01/19/18 <Stephanie Calzada - 01/26/18 14:19> Vital Signs 01/25/18 09:32 01/25/18 18:10 01/25/18 18:30 Temperature 97.8 F Pulse Rate 75 86 Respiratory Rate 21 21 Blood Pressure 137/65 185/80 H Pulse Oximetry 94 L 98 98 01/25/18 18:45 01/25/18 19:00 01/25/18 19:46 Temperature 97.6 F Pulse Rate 89 92 H Respiratory Rate 21 21 Blood Pressure 165/76 H 157/71 H Pulse Oximetry 98 98 100 01/25/18 20:00 01/26/18 00:00 01/26/18 04:00 Temperature 98.1 F 98.7 F 99 F Pulse Rate 87 74 84 Respiratory Rate 18 16 12 Blood Pressure 180/79 H 161/69 H 174/69 H Pulse Oximetry 98 97 98 Intake & Output 01/25/18 01/26/18 01/26/18 18:59 06:59 18:59 Intake Total 5250 / 5250 501 / 501 Output Total 1750 / 1750 1650 / 1650 Balance 3500 / 3500 -1149 / -1149 Weight 73.5 kg Intake: IV 250 / 250 501 / 501 Novastan Inj 250 MG In NS Inj 151 / 151 247.5 ML @ Per Protocol IV.CONT TITRATE PRN Rx#:[id number] Maxipime Inj 2,000 MG In NS Inj 100 / 100 100 ML @ 200 mls/hr IV.SIG Q12H SHAVONNE Rx#:[id number] Vancomycin Inj 1,000 MG In NS 250 / 250 250 / 250 Inj 250 ML @ 250 mls/hr IV.SIG Q18H SHAVONNE Rx#:[id number] Anesthesia Amount 4500 / 4500 Mass Transfusion Protocol 500 / 500 Output: Urine 1500 / 1500 Estimated Blood Loss 250 / 250 Urine Amount (Catheter) 1650 / 1650 Indwelling Urethral Catheter 1650 / 1650 Other: # Voids 1 Date of Last Bowel Movement 01/19/18 <Richard Kuo - 01/26/18 09:42> Narrative: A and O x3, no confusion, speech normal, no facial asymmetry. EOMI, peripheral stewart grossly intact with possible extreme left peripheral field defect for OS , otherwise PERRL, stable BLE neuro exam with diminished sensation Left dorsolateral foot and calf, diminished dorsiflexion Left foot. BUE with Normal sensation, no hyperreflexia, no obvious drift, but subtle dysmetria Right upper ext as pt reaches toward object at distance. 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 <Stephanie Calzada - 01/26/18 14:21> GENERAL: Lying in bed, NAD SKIN: Warm and dry. Bandages c/d/i CARDIOVASCULAR: Regular rate and rhythm. RESPIRATORY: No accessory muscle use. Clear to auscultation. Breath sounds equal bilaterally. GASTROINTESTINAL: Abdomen soft, non-tender, nondistended. MUSCULOSKELETAL: Extremities warm to touch. No cyanosis. Bilateral lower extremity edema. NEUROLOGICAL: Awake and alert. No obvious cranial nerve deficits. Normal speech. PSYCHIATRIC: Appropriate mood and affect; insight and judgment normal. <Richard Kuo - 01/26/18 09:42> - Urinary Catheter Management Indwelling Urethral Catheter Cath placed during this visit: yes <Richard Kuo - 01/26/18 14:34> no <Oscar Calzadat - 01/26/18 14:21> Reason for continuing: Hourly intake/output <Richard Kuo - 01/26/18 09:42 > Insertion date: 01/25/18 <Richard Kuo - 01/26/18 09:42> Insertion time: 12:59 <Richard Kuo - 01/26/18 09:42> Assessment and Plan - Assessment (1) Pain in both lower legs Code(s): M79.661 - Pain in right lower leg; M79.662 - Pain in left lower leg Status: Acute (2) Heparin induced thrombocytopenia Code(s): D75.82 - Heparin induced thrombocytopenia (HIT) Status: Acute (3) Hypertension Code(s): I10 - Essential (primary) hypertension Status: Acute (4) EVON (acute kidney injury) Code(s): N17.9 - Acute kidney failure, unspecified Status: Acute (5) SIRS (systemic inflammatory response syndrome) Code(s): R65.10 - Systemic inflammatory response syndrome (SIRS) of non- infectious origin without acute organ dysfunction Status: Resolved (6) Metastatic primary lung cancer Code(s): C34.90 - Malignant neoplasm of unspecified part of unspecified bronchus or lung Status: Acute (7) Thrombosis of right saphenous vein Code(s): I82.811 - Embolism and thrombosis of superficial veins of right lower extremity Status: Acute (8) Anemia Code(s): D64.9 - Anemia, unspecified Status: Acute (9) Avascular necrosis of hip Code(s): M87.059 - Idiopathic aseptic necrosis of unspecified femur Status: Acute (10) Atrial fibrillation Code(s): I48.91 - Unspecified atrial fibrillation Status: Acute (11) Nutrition, metabolism, and development symptoms Code(s): R63.8 - Other symptoms and signs concerning food and fluid intake Status: Acute <Stephanie Calzada - 01/26/18 14:19> (1) Pain in both lower legs Code(s): M79.661 - Pain in right lower leg; M79.662 - Pain in left lower leg Status: Acute Plan: Patient presented after worsening pain and weakness in bilateral legs. Upon further discussion with patient, has signs and symptoms of peripheral arterial disease. Also with associated neuropathy and weakness upon admission. 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 -Ordered Decadron 10mg IV once, which did help with the pain -EMG pending -Vascular or-sxsafgwsf-qnykrbxfut recs -Pt has changes of decrease blood flow in feet. Throwing embolic material distally -POD#1 axillobifemoral bypass along with coiling proximal ilial flow -Tolerated procedure well. Feet warm and normal cap refill -Heme/onc consulted -Treating HIT with argatroban -PT evaluating -recommend home health -Pain management, weaning down on medications -Weiner 10 q8H PRN -Morphine 1mg q12H PRN, may increase frequency if needed (2) Heparin induced thrombocytopenia Code(s): D75.82 - Heparin induced thrombocytopenia (HIT) Status: Acute Plan: Postop from lobectomy and s/p heparin 9 days on admission Heparin-induced thrombocytopenia antibody positive Platelets tended down after surgery No transfusion recommended at this time due to possibility of further coagulation Hold all heparin forms Heme/onc consulted-HIT with thrombosis -On argatroban gtt -Once stable per heme, will then transition to Eliquis (3) Hypertension Code(s): I10 - Essential (primary) hypertension Status: Acute Plan: Pt with BP up to 170s/70s overnight. Started on clonidine and nitro patch overnight. -D/c clonidine patch this morning. -Start Procardia 10mg TID -Continue metoprolol -Hold nitro patch, can replace overnight if becomes hypertensive -Clonidine PO PRN SBP>180 (4) EVON (acute kidney injury) Code(s): N17.9 - Acute kidney failure, unspecified Status: Acute Plan: Increasing serum creatinine during hospitalization. Admitted with Cr of 1.2. CMP from 06/28/17 with Cr of 0.95 Aortic CTA shows infarct of inferior pole of right kidney of unknown age. Possibly related to contrast administration during hospitalization Cr stable Will watch closely post-op -Monitor I/Os -Monitor BMP -Avoid nephrotoxic agents -Avoid further contrast studies if able -Renal consulted -Suspect contrast nephrotoxicity -Serum complements wnl; urine eosinophils negative -Continue IV hydration of D5-1/2NS @ 80mls/hr (5) SIRS (systemic inflammatory response syndrome) Code(s): R65.10 - Systemic inflammatory response syndrome (SIRS) of non- infectious origin without acute organ dysfunction Status: Resolved Plan: Resolve SIRS criteria with only leukocytosis. Afebrile No obvious source of infection, however inflammatory response could be related to malignancy vs thrombosis. CBC: Stable WBC and neutrophils Chest x-ray (01/20): Stable from admission Urinalysis (01/20): Negative leukocyte esterase and nitrite, large occult blood, 100 protein, rare bacteria; otherwise negative Lactic acid 0.7; ESR 66 -Has been afebrile the last 72 hours -Blood cultures 01/21/18: NGTD -Will stop antibiotics today. -Vancomycin () -Cefepime 2g 24H () (6) Metastatic primary lung cancer Code(s): C34.90 - Malignant neoplasm of unspecified part of unspecified bronchus or lung Status: Acute Plan: Status post chemo in November, status post lobectomy Recent PET scans negative MRI spine shows possible mets Repeat brain MRI with no acute change -Management per oncology team; discussing case with patients Oncologist in [place] , Dr. Dillard -Regarding possible drop mets -Unsure of etiology at this time -Radiation oncology consulted -No therapy at this time due to low platelets (7) Thrombosis of right saphenous vein Code(s): I82.811 - Embolism and thrombosis of superficial veins of right lower extremity Status: Acute Plan: Lower extremity superficial vein, generally benign and self-limited however a larger vein is involved in this case Caution with propagation into the DVT system and PE possibility Likely due to abnormal coagulation at this time may repeat duplex ultrasound with further clinical signs Elevation Warm and cool compresses Compression stockings Pain management (8) Anemia Code(s): D64.9 - Anemia, unspecified Status: Acute Plan: No history of anemia per patient Likely chronic anemia, patient at high risk for bleeding due to thrombocytopenia Unsure of the exact cause, chemotherapy vs recent surgery vs chronic anemia (9) Avascular necrosis of hip Code(s): M87.059 - Idiopathic aseptic necrosis of unspecified femur Status: Acute Plan: MRI of sacrum revealed findings of avascular necrosis involving the right femoral head. No collapse. Pt reports chronic hip pain, nothing acute Unsure etiology Did receive IV steroids on 01/23 -Will hold further steroids at this time -Continue to monitor (10) Atrial fibrillation Code(s): I48.91 - Unspecified atrial fibrillation Status: Acute Plan: History of Afib. Controlled rate Echo shows EF of 50-55% Segmental wall motion abnormalities with hypokinesis No episodes of Afib during admission, d/c Telemetry Continue metoprolol (11) Nutrition, metabolism, and development symptoms Code(s): R63.8 - Other symptoms and signs concerning food and fluid intake Status: Acute Plan: Fluids: D5-1/2NS @ 80mls/hr Electrolytes: Follow-up BMP and replete as needed Nutrition: Regular diet, NPO before surgery today DVT prophylaxis: Holding all heparin products, argatroban gtt Incentive spirometry <Richard Kuo - 01/26/18 14:34> - Assessment and Plan 62 y/o male with history of lung cancer with mets to brain, hypertension, atrial fibrillation presented on admission with bilateral leg pain/weakness. Admitted for workup. 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 Leg pain being worked up with etiology of vascular vs neurologic vs infectious vs other. Currently on argatroban gtt, awaiting improvement of platelets. Post-op from axillofemoral bypass with coiling. Pain and blood flow improved. Awaiting improvement of platelets. <Richard Kuo - 01/26/18 11:02> Discharge Planning: Pending improvement of platelets and workup of leg pain. PT recommends home health upon discharge Advanced Directives discussed with pt on 01/22. Paperwork completed. Pt's is Health care surrogate. Confirmed full code status and <Richard Kuo - 01/26/18 11:02> - Attending Attestation The exam, history, and the medical decision-making described in the above note were completed with the assistance of the resident physician. Subsequent to resident evaluation pt reported RUE changes as noted above. Per nurse, NEURO was notified around 10am and has ordered MRI brain without contrast. I discussed with and pt and answered questions re: potential etiologies for this neuro change. They were reluctant to under MRI until I explained could impact current management if bleed discovered. Case d/w Dr Layton who joined me for bedside exam and sexual abuse counsellor of pt/ . Will monitor BP and NEURO status, adjust goals and treatments if indicated by imaging. I attest that I had a face- to-face encounter with the patient on the same day, and personally performed and documented my assessment and findings in the medical record. <Stephanie Calzada - 01/26/18 12:14> <Richard Kuo - Last Filed: 01/26/18 14:34> (8) Anemia Qualifiers: Anemia type: bone marrow failure Bone marrow failure anemia type: pancytopenia, antineoplastic chemotherapy-induced Qualified Code(s): D61.810 - Antineoplastic chemotherapy induced pancytopenia; T45.1X5A - Adverse effect of antineoplastic and immunosuppressive drugs, initial encounter (9) Avascular necrosis of hip Qualifiers: Laterality: right Qualified Code(s): M87.051 - Idiopathic aseptic necrosis of right femur <Richard Kuo - Last Filed: 01/26/18 14:34> (8) Anemia Qualifiers: Anemia type: bone marrow failure Bone marrow failure anemia type: pancytopenia, antineoplastic chemotherapy-induced Qualified Code(s): D61.810 - Antineoplastic chemotherapy induced pancytopenia; T45.1X5A - Adverse effect of antineoplastic and immunosuppressive drugs, initial encounter (9) Avascular necrosis of hip Qualifiers: Laterality: right Qualified Code(s): M87.051 - Idiopathic aseptic necrosis of right femur
--- NOTE | 2018-01-26 10:31 | P.PNVS ---
Subjective Subjective/Hospital Course: Patient seen and full consult dictated We will follow Thanks J 01/24/[address] Veras, interventional radiology and we jointly examined the patient and spoke to the and the patient. For details refer to my original consult from last week. On physical exam patient has more prominent changes as far as the decrease in blood flow in both feet. He still has dopplerable femoral and popliteal pulses as well as weak dorsalis pedis posterior tibial on the left and only posterior tibial on the right. In comparison to last week and this Monday, indeed toes are more dusky appearing with some cyanotic hue especially the right foot. Capillary refill is quite decreased at this time. There is no question that patient is throwing embolic material and showering microthrombi and micro emboli distally. Renal function is somewhat improved which is helpful and platelet count is slowly rising. This is a very complex situation and remedies are limited Patient is not a candidate for aortobifemoral bypass for this is a major surgery which patient would not sustain very well. The other option is placing iliac covered stents to push the clot aside. Unfortunately this would allow for aortic thrombotic material to flush downward unimpeded and with essentially worsened the situation. Therefore after discussing this with patient and family and then between Dr. Veras, Dr. Calzada and myself we agreed on following hybrid approach Patient will have axillobifemoral bypass in order to improve the blood flow to the legs and bypass the occluded area of aorta and iliac arteries. At the same , time Dr. Veras will coil the remaining proximal iliac flow in order to prevent clots from flushing down further. Between these 2 patient has the best chance to maintain the flow to the legs and minimize the chance of further distal embolization. Unfortunately patient does have metastatic lung cancer and his longevity is predicated upon this but also possible complications from the above-noted procedures for he will continue to have a low level consumption coagulopathy and may form clots in his axillobifemoral graft or in the distal agdaagux vessels. He will need to remain on full anticoagulation for the rest of his life probably go home on either factor VIIa inhibitor or thrombin inhibitor. I will also offer to the patient the option of going back to [place] where he already had lung surgery and brain surgery for they have established trust with that group of physicians and surgeons. Otherwise, patient is on schedule for tomorrow for axillobifemoral bypass and coiling of the iliacs. Discussed with hematology as well. I have extensively discussed the risks and benefits of the surgery with patient and his as well as potential risks including loss of both extremities and . 01/26/2018 Patient is status post axillobifemoral bypass and endovascular coiling of the common iliac arteries Incisions are clean and dry Patient is awake alert and oriented Patient has brisk flow in the axillofemoral graft and strong dopplerable popliteal and posterior tibial pulses Weak dorsalis pedis pulses Feet are nice and warm well perfused and capillary refill is normal Patient currently on argatroban and should probably go home on some oral anticoagulant probably Eliquis. Plan Transfer to floor Hep-Lock IV Out of bed Regular diet Objective Vital Signs / I&O: Vital Signs 01/25/18 18:10 01/25/18 18:30 01/25/18 18:45 Temperature 97.8 F Pulse Rate 75 86 89 Respiratory Rate 21 21 21 Blood Pressure 137/65 185/80 H 165/76 H Pulse Oximetry 98 98 98 01/25/18 19:00 01/25/18 19:46 01/25/18 20:00 Temperature 97.6 F 98.1 F Pulse Rate 92 H 87 Respiratory Rate 21 18 Blood Pressure 157/71 H 180/79 H Pulse Oximetry 98 100 98 01/26/18 00:00 01/26/18 04:00 Temperature 98.7 F 99 F Pulse Rate 74 84 Respiratory Rate 16 12 Blood Pressure 161/69 H 174/69 H Pulse Oximetry 97 98 Intake & Output 01/25/18 01/26/18 01/26/18 18:59 06:59 18:59 Intake Total 5250 / 5250 501 / 501 Output Total 1750 / 1750 1650 / 1650 Balance 3500 / 3500 -1149 / -1149 Weight 73.5 kg Intake: IV 250 / 250 501 / 501 Novastan Inj 250 MG In NS Inj 151 / 151 247.5 ML @ Per Protocol IV.CONT TITRATE PRN Rx#:[id number] Maxipime Inj 2,000 MG In NS Inj 100 / 100 100 ML @ 200 mls/hr IV.SIG Q12H SHAVONNE Rx#:[id number] Vancomycin Inj 1,000 MG In NS 250 / 250 250 / 250 Inj 250 ML @ 250 mls/hr IV.SIG Q18H SHAVONNE Rx#:[id number] Anesthesia Amount 4500 / 4500 Mass Transfusion Protocol 500 / 500 Output: Urine 1500 / 1500 Estimated Blood Loss 250 / 250 Urine Amount (Catheter) 1650 / 1650 Indwelling Urethral Catheter 1650 / 1650 Other: # Voids 1 Date of Last Bowel Movement 01/19/18 Laboratory Results - last 24 hr 01/24/18 01/24/18 01/25/18 13:02 16:20 20:00 WBC 13.1 H RBC 3.23 L Hgb 9.6 L Hct 29.4 L MCV 90.9 MCH 29.7 MCHC 32.6 RDW 18.3 H Plt Count 58 L MPV 8.4 Prelim Diff (Auto) Slide review pending Neut % (Auto) 80.6 H Lymph % (Auto) 6.6 L [place] % (Auto) 8.1 H Eos % (Auto) 4.3 H Baso % (Auto) 0.4 Neut # (Auto) 10.5 H Lymph # (Auto) 0.9 L [place] # (Auto) 1.1 H Eos # (Auto) 0.6 H Baso # (Auto) 0.0 WBC Differential . Diff Scan Auto diff confirmed Differential Comment . Platelet Estimate Low L Platelet Morphology Normal PT INR APTT Sodium Potassium Chloride Carbon Dioxide Anion Gap BUN Creatinine Estimated GFR Random Glucose Calcium Prot Corrected Calcium Phosphorus Total Bilirubin AST ALT Alkaline Phosphatase Total Protein Albumin Vancomycin Trough Blood Type O Positive Antibody Screen Negative MTS Gel Crossmatch See Detail Bld Prod Order Comment 01/25/18 01/25/18 01/26/18 20:00 20:00 00:10 WBC RBC Hgb Hct MCV MCH MCHC RDW Plt Count MPV Prelim Diff (Auto) Neut % (Auto) Lymph % (Auto) [place] % (Auto) Eos % (Auto) Baso % (Auto) Neut # (Auto) Lymph # (Auto) [place] # (Auto) Eos # (Auto) Baso # (Auto) WBC Differential Diff Scan Differential Comment Platelet Estimate Platelet Morphology PT 18.3 H INR 1.8 APTT 43.7 H 52.2 H Sodium 139 Potassium 4.4 Chloride 105 Carbon Dioxide 24.2 Anion Gap 10 BUN 18 Creatinine 1.39 H Estimated GFR 51 L Random Glucose 131 H Calcium 7.3 L* D Prot Corrected Calcium 7.8 L Phosphorus Total Bilirubin AST ALT Alkaline Phosphatase Total Protein 6.1 L D Albumin Vancomycin Trough Blood Type Antibody Screen MTS Gel Crossmatch Bld Prod Order Comment 01/26/18 01/26/18 01/26/18 01:45 05:15 05:15 WBC 13.8 H RBC 2.77 L Hgb 8.4 L Hct 25.1 L MCV 90.6 MCH 30.2 MCHC 33.3 RDW 18.5 H Plt Count 48 L MPV 8.6 Prelim Diff (Auto) Slide review pending Neut % (Auto) 80.6 H Lymph % (Auto) 7.8 L [place] % (Auto) 10.9 H Eos % (Auto) 0.4 Baso % (Auto) 0.3 Neut # (Auto) 11.1 H Lymph # (Auto) 1.1 [place] # (Auto) 1.5 H Eos # (Auto) 0.1 Baso # (Auto) 0.0 WBC Differential . Diff Scan Auto diff confirmed Differential Comment . Platelet Estimate Low L Platelet Morphology Normal PT INR APTT Sodium 140 Potassium 4.7 Chloride 107 Carbon Dioxide 25.9 Anion Gap 7 BUN 21 H Creatinine 1.41 H Estimated GFR 51 L Random Glucose 110 H Calcium 7.8 L Prot Corrected Calcium Phosphorus 3.2 Total Bilirubin 0.5 AST 66 H ALT 35 Alkaline Phosphatase 63 Total Protein 5.8 L Albumin 2.1 L Vancomycin Trough 15.2 H Blood Type Antibody Screen MTS Gel Crossmatch Bld Prod Order Comment 01/26/18 05:15 WBC RBC Hgb Hct MCV MCH MCHC RDW Plt Count MPV Prelim Diff (Auto) Neut % (Auto) Lymph % (Auto) [place] % (Auto) Eos % (Auto) Baso % (Auto) Neut # (Auto) Lymph # (Auto) [place] # (Auto) Eos # (Auto) Baso # (Auto) WBC Differential Diff Scan Differential Comment Platelet Estimate Platelet Morphology PT INR APTT 56.7 H Sodium Potassium Chloride Carbon Dioxide Anion Gap BUN Creatinine Estimated GFR Random Glucose Calcium Prot Corrected Calcium Phosphorus Total Bilirubin AST ALT Alkaline Phosphatase Total Protein Albumin Vancomycin Trough Blood Type Antibody Screen MTS Gel Crossmatch Bld Prod Order Comment Microbiology 01/21/18 10:25 Aerobic Blood Culture - Preliminary Blood - Peripheral No growth in 4 days Anaerobic Blood Culture - Preliminary No growth in 4 days 01/21/18 10:14 Aerobic Blood Culture - Preliminary Blood - Peripheral No growth in 4 days Anaerobic Blood Culture - Preliminary No growth in 4 days
[2018-01-26] MEDS: Argatroban Inj 250 MG in Sodium Chlor 0.9% Inj 247.5 ML IV.CONT PRN (12:05)
--- NOTE | 2018-01-26 12:06 | P.PNNP ---
Subjective Interval history: This patient is a 62-year-old male with a complicated medical history. 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 Subsequently went to the [facility] for further treatment which confirmed presence of a 7.4 cm left upper lobe lung mass. Underwent resection of brain mass June 2017 and subsequently started on chemotherapy which included keytrude and Platinol both apparently can be associated with renal insufficiency with patient is unaware of this occurring by history. Last cycle of chemotherapy said to be November 20, 2017. He underwent a thoracotomy January 01, 2018 with wedge resection left upper lobe. Hospital course said to have gone well at the [facility]. Subsequently was discharged but presented to this institution with severe right leg pain. CTA was performed at this institution January 17, 2018 which revealed infarction of the inferior pole of the right kidney of unknown age. Also severe chronic infrarenal atherosclerotic disease causing severe narrowing of the distal aorta and proximal inflow vessels. Patient's creatinine level at the time of presentation 1.2 no previous levels available to me. Creatinine level has been rising subsequently to 1.8 today. 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 01/23/18 Pt going to MRI today of sacrum and coccyx for further eval of L leg weakness. January 24, 2018 Patient with no verbal complaints. Indicating he is improving. 01/26/18 Pt s/p axillobifemoral bypass and endovascular coiling of the common iliac arteries 01/25/18 Seems to be doing quite well In ICU now, but being downgraded this afternoon. If having some pronator drift and is scheduled for non-contrasted MRI of head and next this afternoon. On vanco, but held today as levels supratherapeutic. No complaints. present in room. <Puja Martinez - Last Filed: 01/26/18 12:06> Physical Exam Vital signs: Vital Signs 01/25/18 18:10 01/25/18 18:30 01/25/18 18:45 Temperature 97.8 F Pulse Rate 75 86 89 Respiratory Rate 21 21 21 Blood Pressure 137/65 185/80 H 165/76 H Pulse Oximetry 98 98 98 01/25/18 19:00 01/25/18 19:46 01/25/18 20:00 Temperature 97.6 F 98.1 F Pulse Rate 92 H 87 Respiratory Rate 21 18 Blood Pressure 157/71 H 180/79 H Pulse Oximetry 98 100 98 01/26/18 00:00 01/26/18 04:00 Temperature 98.7 F 99 F Pulse Rate 74 84 Respiratory Rate 16 12 Blood Pressure 161/69 H 174/69 H Pulse Oximetry 97 98 Intake & Output 01/25/18 01/26/18 01/26/18 18:59 06:59 18:59 Intake Total 5250 / 5250 501 / 501 Output Total 1750 / 1750 1650 / 1650 Balance 3500 / 3500 -1149 / -1149 Weight 73.5 kg Intake: IV 250 / 250 501 / 501 Novastan Inj 250 MG In NS Inj 151 / 151 247.5 ML @ Per Protocol IV.CONT TITRATE PRN Rx#:[id number] Maxipime Inj 2,000 MG In NS Inj 100 / 100 100 ML @ 200 mls/hr IV.SIG Q12H SHAVONNE Rx#:[id number] Vancomycin Inj 1,000 MG In NS 250 / 250 250 / 250 Inj 250 ML @ 250 mls/hr IV.SIG Q18H SHAVONNE Rx#:[id number] Anesthesia Amount 4500 / 4500 Mass Transfusion Protocol 500 / 500 Output: Urine 1500 / 1500 Estimated Blood Loss 250 / 250 Urine Amount (Catheter) 1650 / 1650 Indwelling Urethral Catheter 1650 / 1650 Other: # Voids 1 Date of Last Bowel Movement 01/19/18 - Constitutional no acute distress - Routine HEENT Exam Head: Present: normocephalic - Routine Neck Exam Present: supple - Routine Respiratory Exam Present: CTA bilaterally - Routine Cardiovascular Exam Present: RRR, S1, S2, murmur - Routine Abdominal Exam Present: soft - Routine Extremities Exam Absent: edema - Routine Neurological Exam Present: alert, oriented X3 - Routine Psychiatric Exam Present: normal affect - Urinary Catheter Management Indwelling Urethral Catheter Cath placed during this visit: yes Reason for continuing: Hourly intake/output Insertion date: 01/25/18 Insertion time: 12:59 <Puja Martinez - Last Filed: 01/26/18 12:06> Vital signs: Vital Signs 01/26/18 12:00 01/26/18 14:00 01/26/18 16:00 Temperature 99.3 F 99.5 F Pulse Rate 76 80 88 Respiratory Rate 22 20 Blood Pressure 154/52 H 134/54 L Pulse Oximetry 95 92 L 01/26/18 18:00 01/26/18 19:15 01/26/18 20:00 Temperature 99.1 F Pulse Rate 84 80 Respiratory Rate 18 18 15 Blood Pressure 122/60 Pulse Oximetry 95 01/26/18 20:59 01/27/18 00:00 01/27/18 04:00 Temperature 97.1 F L 97.7 F Pulse Rate 84 86 Respiratory Rate 18 19 Blood Pressure 137/65 117/55 L Pulse Oximetry 95 94 L 96 01/27/18 08:00 01/27/18 11:19 Temperature 101.5 F H Pulse Rate 92 H Respiratory Rate 18 Blood Pressure 141/63 H Pulse Oximetry 94 L 95 Intake & Output 01/26/18 01/27/18 01/27/18 18:59 06:59 18:59 Intake Total 850 / 850 500 / 500 1470 / 1470 Output Total 900 / 900 400 / 400 Balance -50 / -50 100 / 100 1470 / 1470 Weight 73.4 kg Intake: IV 250 / 250 1470 / 1470 Novastan Inj 250 MG In NS Inj 250 / 250 247.5 ML @ Per Protocol IV.CONT TITRATE PRN Rx#:[id number] Oral 600 / 600 500 / 500 Output: Urine 400 / 400 Urine Amount (Catheter) 900 / 900 Indwelling Urethral Catheter 900 / 900 Other: Date of Last Bowel Movement 01/19/18 01/23/18 # Bowel Movements 0 - Urinary Catheter Management Indwelling Urethral Catheter Cath placed during this visit: no <Samy Silver - Last Filed: 01/27/18 11:45> Assessment and Plan - Assessment (1) EVON (acute kidney injury) Code(s): N17.9 - Acute kidney failure, unspecified Status: Acute Plan: Patient likely has developed some degree of contrast nephrotoxicity post CTA. Patient also has evidence of renal infarct involving the lower pole of the right kidney. Unfortunately cannot be certain as to the timing of the event. 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 Also mention of atrial fibrillation and a history. Potential for pre-existing renal insufficiency related to chemotherapy from [facility] as admitting SCr at 1.2. Renal functions improved. Vanco held today as levels elevated. MRI without ordered per neuro. Will D/C IVF as he has positive fluid balance. Will continue to monitor. Medications should be adjusted for the patient's estimated GFR if clinically indicated. Avoid agents with significant potential for nephrotoxicity possible including NSAIDs for analgesia, iodine contrast agents. Gadolinium is contraindicated if the GFR is below 30. (2) Renal infarction Code(s): N28.0 - Ischemia and infarction of kidney Status: Acute Plan: Risk factors as described above for renal infarction. Timing of infarction uncertain and it may have been subacute or chronic in nature. Patient already on anticoagulation. No new recommendations from my point of view in regard to management of same. <Puja Martinez - Last Filed: 01/26/18 12:06> - Assessment (1) EVON (acute kidney injury) Code(s): N17.9 - Acute kidney failure, unspecified Status: Acute (2) Renal infarction Code(s): N28.0 - Ischemia and infarction of kidney Status: Acute - Attending Attestation The exam, history, and the medical decision-making described in the above note were completed with the assistance of the KEM. I reviewed and agree with the findings presented. <Samy Silver - Last Filed: 01/27/18 11:45>
--- NOTE | 2018-01-26 13:28 | MR ---
EXAM DATE: 01/26/2018 1:18 PM EDT AGE/SEX: 62 years / Male INDICATIONS: . Bilateral lower extremity numbness. CLINICAL DATA: This is the patient's initial encounter. Patient reports that signs and symptoms have been present for 1 day and indicates a pain score of 0/10. MEDICAL/SURGICAL HISTORY: Carcinoma, lung. Lobectomy. Craniotomy. COMPARISON: [facility] [place] W & W/O CONTRAST, 01/18/2018. . TECHNIQUE: 3D [id number] MRA was performed. Source images, multiplanar STS MIP, and 3D volum e MIP reconstructions were reviewed. FINDINGS: There is excellent visualization of the major intracranial arteries out to the second-order branch ve ssels. There is no evidence for aneurysm, vessel truncation or stenosis, and no evidence for vascula r malformation. 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 Right posterior communicating artery is diminutive CONCLUSION: 1. Anatomic variant of the [place] of [place] as above. 2. Otherwise, intracranial vessels are all patent without aneurysmal disease. Electronically signed by: Itz Veras MD 01/26/2018 1:26 PM EDT
--- NOTE | 2018-01-26 13:56 | P.PNONC ---
Subjective Interval history: Afebrile Patient resting in bed about to go for MRI States his pain is much improved after vascular surgery No bleeding Objective Vital Signs/Intake & Output: Vital Signs 01/25/18 18:10 01/25/18 18:30 01/25/18 18:45 Temperature 97.8 F Pulse Rate 75 86 89 Respiratory Rate 21 21 21 Blood Pressure 137/65 185/80 H 165/76 H Pulse Oximetry 98 98 98 01/25/18 19:00 01/25/18 19:46 01/25/18 20:00 Temperature 97.6 F 98.1 F Pulse Rate 92 H 87 Respiratory Rate 21 18 Blood Pressure 157/71 H 180/79 H Pulse Oximetry 98 100 98 01/26/18 00:00 01/26/18 04:00 Temperature 98.7 F 99 F Pulse Rate 74 84 Respiratory Rate 16 12 Blood Pressure 161/69 H 174/69 H Pulse Oximetry 97 98 Intake & Output 01/25/18 01/26/18 01/26/18 18:59 06:59 18:59 Intake Total 5250 / 5250 501 / 501 250 / 250 Output Total 1750 / 1750 1650 / 1650 Balance 3500 / 3500 -1149 / -1149 250 / 250 Weight 162 lb 0.636 oz Intake: IV 250 / 250 501 / 501 250 / 250 Novastan Inj 250 MG In NS Inj 151 / 151 250 / 250 247.5 ML @ Per Protocol IV.CONT TITRATE PRN Rx#:[id number] Maxipime Inj 2,000 MG In NS Inj 100 / 100 100 ML @ 200 mls/hr IV.SIG Q12H SHAVONNE Rx#:[id number] Vancomycin Inj 1,000 MG In NS 250 / 250 250 / 250 Inj 250 ML @ 250 mls/hr IV.SIG Q18H SHAVONNE Rx#:[id number] Anesthesia Amount 4500 / 4500 Mass Transfusion Protocol 500 / 500 Output: Urine 1500 / 1500 Estimated Blood Loss 250 / 250 Urine Amount (Catheter) 1650 / 1650 Indwelling Urethral Catheter 1650 / 1650 Other: # Voids 1 Date of Last Bowel Movement 01/19/18 Result Diagrams: 01/26/18 05:15 01/26/18 05:15 Laboratory Results: Laboratory Results - last 24 hr 01/24/18 01/24/18 01/25/18 13:02 16:20 20:00 WBC 13.1 H RBC 3.23 L Hgb 9.6 L Hct 29.4 L MCV 90.9 MCH 29.7 MCHC 32.6 RDW 18.3 H Plt Count 58 L MPV 8.4 Prelim Diff (Auto) Slide review pending Neut % (Auto) 80.6 H Lymph % (Auto) 6.6 L Stone % (Auto) 8.1 H Eos % (Auto) 4.3 H Baso % (Auto) 0.4 Neut # (Auto) 10.5 H Lymph # (Auto) 0.9 L Stone # (Auto) 1.1 H Eos # (Auto) 0.6 H Baso # (Auto) 0.0 WBC Differential . Diff Scan Auto diff confirmed Differential Comment . Platelet Estimate Low L Platelet Morphology Normal PT INR APTT Sodium Potassium Chloride Carbon Dioxide Anion Gap BUN Creatinine Estimated GFR Random Glucose Calcium Prot Corrected Calcium Phosphorus Total Bilirubin AST ALT Alkaline Phosphatase Total Protein Albumin Vancomycin Trough Blood Type O Positive Antibody Screen Negative MTS Gel Crossmatch See Detail Bld Prod Order Comment 01/25/18 01/25/18 01/26/18 20:00 20:00 00:10 WBC RBC Hgb Hct MCV MCH MCHC RDW Plt Count MPV Prelim Diff (Auto) Neut % (Auto) Lymph % (Auto) Stone % (Auto) Eos % (Auto) Baso % (Auto) Neut # (Auto) Lymph # (Auto) Stone # (Auto) Eos # (Auto) Baso # (Auto) WBC Differential Diff Scan Differential Comment Platelet Estimate Platelet Morphology PT 18.3 H INR 1.8 APTT 43.7 H 52.2 H Sodium 139 Potassium 4.4 Chloride 105 Carbon Dioxide 24.2 Anion Gap 10 BUN 18 Creatinine 1.39 H Estimated GFR 51 L Random Glucose 131 H Calcium 7.3 L* D Prot Corrected Calcium 7.8 L Phosphorus Total Bilirubin AST ALT Alkaline Phosphatase Total Protein 6.1 L D Albumin Vancomycin Trough Blood Type Antibody Screen MTS Gel Crossmatch Bld Prod Order Comment 01/26/18 01/26/18 01/26/18 01:45 05:15 05:15 WBC 13.8 H RBC 2.77 L Hgb 8.4 L Hct 25.1 L MCV 90.6 MCH 30.2 MCHC 33.3 RDW 18.5 H Plt Count 48 L MPV 8.6 Prelim Diff (Auto) Slide review pending Neut % (Auto) 80.6 H Lymph % (Auto) 7.8 L Stone % (Auto) 10.9 H Eos % (Auto) 0.4 Baso % (Auto) 0.3 Neut # (Auto) 11.1 H Lymph # (Auto) 1.1 Stone # (Auto) 1.5 H Eos # (Auto) 0.1 Baso # (Auto) 0.0 WBC Differential . Diff Scan Auto diff confirmed Differential Comment . Platelet Estimate Low L Platelet Morphology Normal PT INR APTT Sodium 140 Potassium 4.7 Chloride 107 Carbon Dioxide 25.9 Anion Gap 7 BUN 21 H Creatinine 1.41 H Estimated GFR 51 L Random Glucose 110 H Calcium 7.8 L Prot Corrected Calcium Phosphorus 3.2 Total Bilirubin 0.5 AST 66 H ALT 35 Alkaline Phosphatase 63 Total Protein 5.8 L Albumin 2.1 L Vancomycin Trough 15.2 H Blood Type Antibody Screen MTS Gel Crossmatch Bld Prod Order Comment 01/26/18 05:15 WBC RBC Hgb Hct MCV MCH MCHC RDW Plt Count MPV Prelim Diff (Auto) Neut % (Auto) Lymph % (Auto) Stone % (Auto) Eos % (Auto) Baso % (Auto) Neut # (Auto) Lymph # (Auto) Stone # (Auto) Eos # (Auto) Baso # (Auto) WBC Differential Diff Scan Differential Comment Platelet Estimate Platelet Morphology PT INR APTT 56.7 H Sodium Potassium Chloride Carbon Dioxide Anion Gap BUN Creatinine Estimated GFR Random Glucose Calcium Prot Corrected Calcium Phosphorus Total Bilirubin AST ALT Alkaline Phosphatase Total Protein Albumin Vancomycin Trough Blood Type Antibody Screen MTS Gel Crossmatch Bld Prod Order Comment Culture Results: Microbiology 01/21/18 10:25 Aerobic Blood Culture - Final Blood - Peripheral No growth in 5 days Anaerobic Blood Culture - Final No growth in 5 days 01/21/18 10:14 Aerobic Blood Culture - Final Blood - Peripheral No growth in 5 days Anaerobic Blood Culture - Final No growth in 5 days Imaging Studies: Impressions Head MRA 01/26/18 10:49 CONCLUSION: 1. Anatomic variant of the [place] of [place] as above. 2. Otherwise, intracranial vessels are all patent without aneurysmal disease. Medications: Active Medications Generic Name Dose Route Start Last Admin Trade Name Freq PRN Reason Stop Dose Admin Hydrocodone Bitart/Acetaminophen 1 tab 01/24/18 09:49 01/26/18 06:14 [place]kin 10/325 PO 1 tab Q8H PRN Administration PAIN SCALE 1 TO 10 Al Hydroxide/Mg Hydroxide 30 ml 01/17/18 14:19 01/23/18 20:34 Milk Of Magnesia Liq PO 30 ml Q12H PRN Administration Mild Constipation Budesonide/Formoterol Fumarate 2 puff 01/17/18 14:00 01/26/18 09:41 Symbicort 160/4.5 Mcg Inh INH 2 puff BID SHAVONNE Administration Folic Acid 1 mg 01/17/18 13:45 01/26/18 09:40 Folic Acid PO 1 mg DAILY SHAVONNE Administration Argatroban 250 mg/ Sodium 250 mls @ 0 mls/hr 01/18/18 15:00 01/26/18 12:05 Chloride IV.CONT 2 mcg/kg/min TITRATE PRN 8.29 mls/hr Per Protocol Administration Protocol Per Protocol Sodium Chloride 1,000 mls @ 0 mls/hr 01/21/18 09:15 01/21/18 18:07 Ns Inj IV.SIG Infused BOLUS SHAVONNE Infusion Wide Open Metoprolol Tartrate 25 mg 01/17/18 13:45 01/26/18 09:41 Lopressor PO 25 mg BID SHAVONNE Administration Nitroglycerin 1 patch 01/25/18 20:00 01/25/18 21:19 Nitro-Dur 0.4 Mg Patch.24 Hr T-DERMAL 1 patch DAILY@2000 SHAVONNE Administration Pantoprazole Sodium 40 mg 01/17/18 14:00 01/26/18 09:38 Protonix PO 40 mg DAILY SHAVONNE Administration Patch Removal 1 each 01/26/18 08:00 01/26/18 09:40 Remove Old Patch T-DERMAL 1 each DAILY@0800 SHAVONNE Administration Pregabalin 75 mg 01/22/18 09:30 01/26/18 09:41 Lyrica PO 75 mg BID SHAVONNE Administration Sennosides 17.2 mg 01/17/18 14:08 01/21/18 22:30 Senokot PO 17.2 mg Q12H PRN Administration Moderate Constipation Sodium Chloride 2 ml 01/17/18 11:17 01/20/18 20:43 Ns Flush IV.FLUSH 2 ml PRN PRN Administration FLUSH AFTER USING IV ACCESS Temazepam 15 mg 01/17/18 21:00 01/24/18 22:13 Restoril PO 15 mg HS PRN Administration INSOMNIA Objective Remarks: GENERAL: Middle-aged male patient, lying in bed, in no acute distress. SKIN: Warm and dry. HEAD: Normocephalic. EYES: No scleral icterus. No injection or drainage. NECK: Supple, trachea midline. CARDIOVASCULAR: +S1/S2 without murmurs. RESPIRATORY: Anterior breath sounds clear, non-labored. GASTROINTESTINAL: Abdomen soft, non-tender, nondistended. EXTREMITIES: No edema. Feet warm to touch. MUSCULOSKELETAL: Adequate muscle tone. NEUROLOGICAL: No obvious focal deficit. Awake, alert, and oriented x3. 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 Bernstein is a pleasant 62-year-old gentleman with a history of non-small cell lung cancer with brain metastasis, status post craniotomy with resection followed by stereotactic radiosurgery with gamma knife, 3-4 cycles of preop Immunochemotherapy with 2 doses of Platinol and Alimta he also underwent thoracotomy and resection of the left upper lobe and wedge resection of the left lower lobe on 01/01/2018. Patient had minimal residual disease of 0.6 cm and also the lymph nodes were negative. Margins were also negative. During this admission the patient was found to have severe thrombocytopenia. Patient did have recent exposure to subcutaneous heparin after his recent surgery. Plan: 1. Monitor platelets. Continue argatroban. Hold only for any bleeding. Will likely begin bridge to oral anticoagulation once platelet count at least 100. 2. Pt s/p axillobifemoral bypass; reports pain is much improved today. 3. Continue supportive care. - Attending Statement The exam, history, and the medical decision-making described in the above note were completed with the assistance of the mid-level provider. I reviewed and agree with the findings presented. I attest that I had a [id number] encounter with the patient on the same day, and personally performed and documented my assessment and findings in the medical record. Pt is OOB to chair. States pain lower legs almost resolved Was able to get up and walk without assistance (per RN) Both feet are now warm. has weakness RUE, unable to reach for things properly. Had MRA of head and neck, MRI of head and C- spine= all negative. plat are low, continue argatroban. plat went down probably from surgery, PRBC , fluids and medications Stop vanco and cefepime, both can cause low plat. monitor cbc extensive discussion with pt and family. remove peripheral lines from Right forearm. Pt is c/o RUE weakness. once plat >100 then will start Eliquis. Pt had EMG few days ago. Result is pending. D/W Dr Krishnan.
--- NOTE | 2018-01-26 14:21 | MR ---
EXAM DATE: 01/26/2018 1:52 PM EDT AGE/SEX: 62 years / Male INDICATIONS: . Bilateral lower extremity numbness. CLINICAL DATA: This is the patient's initial encounter. Patient reports that signs and symptoms have been present for 1 day and indicates a pain score of 0/10. MEDICAL/SURGICAL HISTORY: Carcinoma, lung. Craniotomy. Lobectomy. COMPARISON: [facility] – [place], MRA HEAD W/O CONTRAST, 01/26/2018. [facility] [place], [place] HEAD W & W/O CONTRAST, 01/18/2018. . TECHNIQUE: Multiplanar, multisequence examination of the brain was performed without contrast. FINDINGS: Cerebrum: The ventricles are normal for age. No evidence of midline shift, mass lesion, hemorrhage or acute infarction. There is encephalomalacia involving the left occipital lobe with ex vacuo dilat ation of the atrium of the left lateral ventricle. No extraaxial fluid collections are seen. The pit uitary gland and suprasellar cistern are normal in configuration. White Matter: No significant signal abnormalities are seen in the white matter. Posterior Fossa: The cerebellum and brainstem are intact. The 4th ventricle is midline. The cerebel lopontine angle is unremarkable. The cerebellar tonsils are normal in position. Diffusion Imaging: No focal areas of restricted diffusion are seen. No evidence of acute infarction . Extracranial: The visualized portions of the orbits and paranasal sinuses are unremarkable. CONCLUSION: 1. Encephalomalacia involving the left occipital lobe with ex vacuo dilatation of the atrium of the left lateral ventricle. 2. No acute infarct, acute hemorrhage, midline shift or extra-axial fluid collections. Electronically signed by: Pete Stanley MD 01/26/2018 2:20 PM EDT
--- NOTE | 2018-01-26 14:29 | MR ---
EXAM DATE: 01/26/2018 1:52 PM EDT AGE/SEX: 62 years / Male INDICATIONS: . Bilateral lower extremity numbness. CLINICAL DATA: This is the patient's initial encounter. Patient reports that signs and symptoms have been present for 1 day and indicates a pain score of 0/10. MEDICAL/SURGICAL HISTORY: Carcinoma, lung. Craniotomy. Lobectomy. [place] [facility] [place]26[place] [facility] [place] THORACIC SPINE W & W/O CON, 01/21/20 18. . TECHNIQUE: Multiplanar, multisequence MRI examination of the cervical spine was performed without co ntrast. FINDINGS: Vertebrae: Normal vertebral body height. Homogeneous marrow signal. Alignment: Normal. Cord: Normal configuration and signal. Post Fossa: The cerebellar tonsils are normal in position. C2-C3: The thecal sac has a normal configuration. There is no evidence of disc herniation or spinal canal stenosis. The neural foramina are patent bilaterally. C3-C4: Minimal diffuse disc bulge is noted resulting in no spinal stenosis. Minimal bilateral forami nal narrowing is noted. C4-C5: There is a small broad-based central to left paracentral focal disc bulge which results in eff acement of the anterior thecal sac and appears to touch the anterior aspect of the cervical cord. The re is mild spinal stenosis at this level and mild bilateral foraminal narrowing. Mild facet joint hyp ertrophy is noted bilaterally. C5-C6: There is a small broad-based central to left paracentral focal disc bulge which results in ef facement of the anterior thecal sac and appears to touch the anterior aspect of the cervical cord. Th ere is mild spinal stenosis at this level and mild bilateral foraminal narrowing. Mild facet joint hy pertrophy is noted bilaterally. C6-C7: Minimal diffuse disc bulge is noted resulting in no spinal stenosis or neuroforaminal narrowin g. C7-T1: No epidural impressions seen. CONCLUSION: 1. Small broad-based central to left paracentral focal disc bulges at C4-5 and C5-6 resulting and mi ld spinal stenosis and mild bilateral foraminal narrowing. Mild facet joint hypertrophy is noted bila terally at these levels. 2. Minimal diffuse disc bulges at C3-4 and C6-7. 3. Minimal bilateral foraminal narrowing at C3-4. Electronically signed by: Pete Stanley MD 01/26/2018 2:27 PM EDT
[2018-01-26] MEDS: NIFEdipine 10 MG Capsule PO SCH ×2 (14:37→18:24)
--- NOTE | 2018-01-26 14:43 | MR ---
EXAM DATE: 01/26/2018 1:52 PM EDT AGE/SEX: 62 years / Male INDICATIONS: . Bilateral lower extremity numbness. CLINICAL DATA: This is the patient's initial encounter. Patient reports that signs and symptoms have been present for 1 day and indicates a pain score of 5/10. MEDICAL/SURGICAL HISTORY: Carcinoma, lung. Craniotomy. Lobectomy. COMPARISON: No prior exams available for comparison. TECHNIQUE: 3D time-of- flight MRA of the extracranial circulation was performed using a neurovascul ar coil. Post processing was performed including rotating sub-volume maximum intensity projections o f each carotid artery, rotating full-volume maximum intensity projections of both carotid arteries, s agittal and coronal sliding thin-slab reformations of each carotid artery, and left oblique sliding t hin-slab reformation through the aortic arch to include the origin of the arch branch vessels. FINDINGS: Aortic Arch : There is a three-vessel origin of the great vessels from the aorta. No evidence of o stial narrowing. Right Carotid : Minimal right internal carotid stenosis is evident thought to be less than 50% nonhe modynamically significant. Left Carotid : Left common carotid is patent. Origin stenosis is present at the origin of the left i nternal and external carotid 60-70%. Carotid Vertebrals : The vertebral arteries have a symmetric diameter. No stenotic lesions are seen. CONCLUSION: 1. Limited exam because of lack of intravenous contrast. 2. Phase contrast study was performed. Correlation ultrasound would be of benefit. Stenosis of the l eft does not not appear to be hemodynamically significant. Percent stenosis is calculated using the diameter of the stenotic region over the diameter of the nor mal distal internal carotid artery Electronically signed by: Reid Martin MD 01/26/2018 2:42 PM EDT
--- NOTE | 2018-01-26 16:44 | IR ---
EXAM DATE: 01/26/2018 2:49 PM EDT AGE/SEX: 62 years / Male INDICATIONS: Patient with pain in both lower extremities, weakness. CLINICAL DATA: This is the patient's initial encounter. Patient reports that signs and symptoms have been present for 1 week and indicates a pain score of 0/10. MEDICAL/SURGICAL HISTORY: Carcinoma, lung. brain tumor . tympanoplasty, chemotherapy [place] [facility] [place]/O CONTRAST, 01/23/2018. . FLUORO TIME (min): 5.0 IMAGE SERIES: 4 ACCESS SITE: Bilateral femoral artery CONTRAST (cc): 15 cc Visipaque (iodixanol) ; ; ; ; Anesthesia and pain control was provided by the Anesthesia department. DEVICE(S): Bilateral common iliac artery embolic coil(s) 8mm x20 cm interlock ; ; ; ; ; ; . . PROCEDURE : 1. Ultrasound-guided puncture of the access site. 2. Conscious sedation with continuous EKG and Oximetry monitoring. 3. Angiography of the right common iliac artery 4. Angiography of the right SFA 5. Angiography of the left common iliac artery 6. Coil embolization, left common iliac artery. 7. Coil embolization, right common iliac artery The risks, benefits and alternatives to the procedure were explained and verbal and written consent w as obtained. Procedure was done in conjunction with Dr. James Fink from the vascular service Th e site was prepped in sterile fashion. Full sterile technique was used, including cap, mask, sterile gloves and gown and a large sterile sheet. Hand hygiene and 2% chlorhexidine and/or betadine/alcoho l prep was utilized per protocol for cutaneous antisepsis. . Dr. Fink performed bilateral cut downs to the femoral arteries in preparation for the axillary b ifemoral bypass. Each of the common femoral arteries were accessed directly with a micropuncture need le. The 018 wire was advanced through the needle over which the 3 4 dilator was placed. On the left, a 5 [place] sheath was placed into the femoral artery. Wire and catheter were manipulated up into the central portion of the common iliac. Contrast injection showed some irregularity and deshawn nosis along the course of the iliac system but the vessels were patent. Extensive thrombus within the abdominal aorta with a moderate stenosis at the aortoiliac junction. A single 8 mm x 20 cm interlock coil was then deployed near the origin of the common iliac artery to limit future embolization from the heavily diseased abdominal aorta. A similar procedure was performed on the right. However, I could not maintain an intraluminal tract w ith the wire becoming subintimal just above the inguinal ligament. Therefore, this access was abandon ed. Dr. Fink completed his subclavian anastomosis and made an incision in the right common femor al in preparation for the distal anastomosis. Through this incision, we were able to advance a hockey -stick catheter and Glidewire and maintain intraluminal position into the central common iliac artery . Contrast injection confirmed position and the second 8 mm x 20 cm interlock coil was deployed. Anesthesia was provided by the anesthesia department. CONCLUSION: 1. Successful deployment of bilateral 8 mm x 20 cm interlock coils within the central portions of th e common iliac arteries bilaterally. 2. Procedure was done in conjunction with the surgical axillary bifemoral bypass. Electronically signed by: Itz Veras MD 01/26/2018 4:43 PM EDT
[2018-01-26] MEDS: Morphine Sulfate Inj 2 MG/ML Vial IV.PUSH PRN (18:24)
[2018-01-26] MEDS: Temazepam 15 MG Capsule PO PRN (21:46)
[2018-01-27] MEDS: Budesonide-Formoterol 160/4.5 MCG 6 GM Inhaler INH SCH ×3 (01:03→21:42)
[2018-01-27 05:43] LABS: Baso # (Auto) 0.1 th/mm3 (0.0-0.2); Baso % (Auto) 0.5 % (0.0-2.0); Eos # (Auto) 0.7 th/mm3 (0.0-0.4); Eos % (Auto) 5.4 % (0.0-4.0); Hemoglobin 8.3 gm/dL (13.0-17.0); Lymph # (Auto) 1.9 th/mm3 (1.0-4.8); Lymph % (Auto) 14.1 % (9.0-44.0); Mean Corpuscular HGB Conc 31.9 % (32.0-36.0); Mean Corpuscular Hemoglobin 30.3 pg (27.0-34.0); Mean Platelet Volume 8.3 fL (7.0-11.0); Mono # (Auto) 1.3 th/mm3 (0.0-0.9); Mono % (Auto) 9.7 % (0.0-8.0); Neut # (Auto) 9.4 th/mm3 (1.8-7.7); Neut % (Auto) 70.3 % (16.0-70.0); Platelet Count 47 th/mm3 (150-450); Red Blood Count 2.73 mil/mm3 (4.50-5.90); Red Cell Distribution Width 18.1 % (11.6-17.2); White Blood Count 13.4 th/mm3 (4.0-11.0)
[2018-01-27 06:22] LABS: Alanine Aminotransferase 34 U/L (12-78); Albumin 1.9 g/dL (3.4-5.0); Alkaline Phosphatase 64 U/L (45-117); Anion Gap 7 meq/L (5-15); Aspartate Aminotransferase 71 U/L (15-37); Blood Urea Nitrogen 20 mg/dL (7-18); Calcium 7.7 mg/dL (8.5-10.1); Carbon Dioxide 25.5 meq/L (21.0-32.0); Chloride 107 meq/L (98-107); Glomerular Filtration Rate 43 mL/min (>89); Glucose,Random 95 mg/dL (74-106); Sodium 139 meq/L (136-145); Total Protein 5.6 g/dL (6.4-8.2)
[2018-01-27 07:28] LABS: Platelet Morphology Normal (Normal)
[2018-01-27 08:14] LABS: INR 2.9 Ratio; Prothrombin Time 29.3 sec (9.8-11.6)
--- NOTE | 2018-01-27 08:51 | P.PNFP ---
Subjective Interval history: Pt seen and examined this morning. No acute events overnight. Pt was transferred out of ICU to med/surg floor. Reports minimal pain in his legs. Had some pain in his groin at the incision sites while walking around yesterday. States the [place] doesn't help that well and the oxycodone worked better. Still having some difficulties with the right arm, although feels improved from yesterday. Denies any new symptoms or numbness/weakness in the right arm. Denies any headaches, fever/chills overnight. Denies any new cough. No chest pain, SOB, abdominal pain, difficulty urinating. <Richard Kuo - 01/27/18 09:57> Results - Labs Result diagrams: 01/27/18 05:21 01/27/18 05:21 <Stephanie Calzada - 01/28/18 04:53> Abnormal lab results 01/24/18 01/27/18 01/27/18 Range/Units 16:20 05:21 05:21 WBC 13.4 H (4.0-11.0) th/mm3 RBC 2.73 L (4.50-5.90) mil/mm3 Hgb 8.3 L (13.0-17.0) gm/dL Hct 26.0 L (39.0-51.0) % MCHC 31.9 L (32.0-36.0) % RDW 18.1 H (11.6-17.2) % Plt Count 47 L (150-450) th/mm3 Neut % (Auto) 70.3 H (16.0-70.0) % [place] % (Auto) 9.7 H (0.0-8.0) % Eos % (Auto) 5.4 H (0.0-4.0) % Neut # (Auto) 9.4 H (1.8-7.7) th/mm3 [place] # (Auto) 1.3 H (0.0-0.9) th/mm3 Eos # (Auto) 0.7 H (0.0-0.4) th/mm3 Platelet Estimate Low L (Normal) PT (9.8-11.6) sec APTT (24.3-30.1) sec BUN 20 H (7-18) mg/dL Creatinine 1.62 H (0.60-1.30) mg/dL Estimated GFR 43 L (>89) mL/min Calcium 7.7 L (8.5-10.1) mg/dL Phosphorus 2.0 L D (2.5-4.9) mg/dL AST 71 H (15-37) U/L Total Protein 5.6 L (6.4-8.2) g/dL Albumin 1.9 L (3.4-5.0) g/dL Urine Protein (Neg-Trace) mg/dL Urine Occult Blood (Negative) Urine Bacteria (None) /hpf Urine Mucus (Occasional) /lpf MTS Gel Crossmatch See Detail 01/27/18 01/27/18 01/27/18 Range/Units 05:21 05:21 21:45 WBC (4.0-11.0) th/mm3 RBC (4.50-5.90) mil/mm3 Hgb (13.0-17.0) gm/dL Hct (39.0-51.0) % MCHC (32.0-36.0) % RDW (11.6-17.2) % Plt Count (150-450) th/mm3 Neut % (Auto) (16.0-70.0) % [place] % (Auto) (0.0-8.0) % Eos % (Auto) (0.0-4.0) % Neut # (Auto) (1.8-7.7) th/mm3 [place] # (Auto) (0.0-0.9) th/mm3 Eos # (Auto) (0.0-0.4) th/mm3 Platelet Estimate (Normal) PT 29.3 H D (9.8-11.6) sec APTT 53.5 H (24.3-30.1) sec BUN (7-18) mg/dL Creatinine (0.60-1.30) mg/dL Estimated GFR (>89) mL/min Calcium (8.5-10.1) mg/dL Phosphorus (2.5-4.9) mg/dL AST (15-37) U/L Total Protein (6.4-8.2) g/dL Albumin (3.4-5.0) g/dL Urine Protein 30 H (Neg-Trace) mg/dL Urine Occult Blood Large H (Negative) Urine Bacteria Rare H (None) /hpf Urine Mucus Few H (Occasional) /lpf MTS Gel Crossmatch Short CBC 01/27/18 Range/Units 05:21 WBC 13.4 H (4.0-11.0) th/mm3 Hgb 8.3 L (13.0-17.0) gm/dL Hct 26.0 L (39.0-51.0) % Plt Count 47 L (150-450) th/mm3 BMP 01/27/18 05:21 Sodium 139 Potassium 4.0 Chloride 107 Carbon Dioxide 25.5 BUN 20 H Creatinine 1.62 H Calcium 7.7 L Liver Function 01/27/18 Range/Units 05:21 Total Bilirubin 0.4 (0.2-1.0) mg/dL AST 71 H (15-37) U/L ALT 34 (12-78) U/L Alkaline Phosphatase 64 (45-117) U/L Albumin 1.9 L (3.4-5.0) g/dL Urine 01/27/18 Range/Units 21:45 Urine Color Yellow (Yellw/Straw) Urine Clarity Clear (Clear) Urine pH 6.0 (5.0-8.5) Ur Specific [place] 1.013 (1.002-1.035) Urine Protein 30 H (Neg-Trace) mg/dL Urine Glucose (UA) 50 (Negative) mg/dL <Stephanie Calzada - 01/28/18 04:53> Abnormal lab results 01/24/18 01/26/18 01/27/18 Range/Units 16:20 05:15 05:21 WBC (4.0-11.0) th/mm3 RBC (4.50-5.90) mil/mm3 Hgb (13.0-17.0) gm/dL Hct (39.0-51.0) % MCHC (32.0-36.0) % RDW (11.6-17.2) % Plt Count (150-450) th/mm3 Neut % (Auto) (16.0-70.0) % [place] % (Auto) (0.0-8.0) % Eos % (Auto) (0.0-4.0) % Neut # (Auto) (1.8-7.7) th/mm3 [place] # (Auto) (0.0-0.9) th/mm3 Eos # (Auto) (0.0-0.4) th/mm3 Platelet Estimate Low L (Normal) PT (9.8-11.6) sec APTT (24.3-30.1) sec BUN 20 H (7-18) mg/dL Creatinine 1.62 H (0.60-1.30) mg/dL Estimated GFR 43 L (>89) mL/min Calcium 7.7 L (8.5-10.1) mg/dL Phosphorus 2.0 L D (2.5-4.9) mg/dL AST 71 H (15-37) U/L Total Protein 5.6 L (6.4-8.2) g/dL Albumin 1.9 L (3.4-5.0) g/dL MTS Gel Crossmatch See Detail 01/27/18 01/27/18 01/27/18 Range/Units 05:21 05:21 05:21 WBC 13.4 H (4.0-11.0) th/mm3 RBC 2.73 L (4.50-5.90) mil/mm3 Hgb 8.3 L (13.0-17.0) gm/dL Hct 26.0 L (39.0-51.0) % MCHC 31.9 L (32.0-36.0) % RDW 18.1 H (11.6-17.2) % Plt Count 47 L (150-450) th/mm3 Neut % (Auto) 70.3 H (16.0-70.0) % [place] % (Auto) 9.7 H (0.0-8.0) % Eos % (Auto) 5.4 H (0.0-4.0) % Neut # (Auto) 9.4 H (1.8-7.7) th/mm3 [place] # (Auto) 1.3 H (0.0-0.9) th/mm3 Eos # (Auto) 0.7 H (0.0-0.4) th/mm3 Platelet Estimate Low L (Normal) PT 29.3 H D (9.8-11.6) sec APTT 53.5 H (24.3-30.1) sec BUN (7-18) mg/dL Creatinine (0.60-1.30) mg/dL Estimated GFR (>89) mL/min Calcium (8.5-10.1) mg/dL Phosphorus (2.5-4.9) mg/dL AST (15-37) U/L Total Protein (6.4-8.2) g/dL Albumin (3.4-5.0) g/dL MTS Gel Crossmatch Short CBC 01/27/18 Range/Units 05:21 WBC 13.4 H (4.0-11.0) th/mm3 Hgb 8.3 L (13.0-17.0) gm/dL Hct 26.0 L (39.0-51.0) % Plt Count 47 L (150-450) th/mm3 BMP 01/27/18 05:21 Sodium 139 Potassium 4.0 Chloride 107 Carbon Dioxide 25.5 BUN 20 H Creatinine 1.62 H Calcium 7.7 L Liver Function 01/27/18 Range/Units 05:21 Total Bilirubin 0.4 (0.2-1.0) mg/dL AST 71 H (15-37) U/L ALT 34 (12-78) U/L Alkaline Phosphatase 64 (45-117) U/L Albumin 1.9 L (3.4-5.0) g/dL <Richard Kuo - 01/27/18 08:50> - Imaging Impressions Chest X-Ray 01/27/18 00:00 CONCLUSION: Evidence for previous surgery in the left upper lobe with some peribronchial thickening in the left lower lobe. Right lung is clear. <Stephanie Calzada - 01/28/18 04:53> Impressions Pelvic Arteriogram 01/25/18 00:00 CONCLUSION: 1. Successful deployment of bilateral 8 mm x 20 cm interlock coils within the central portions of the common iliac arteries bilaterally. 2. Procedure was done in conjunction with the surgical axillary bifemoral bypass. Neck MRA 01/26/18 00:00 CONCLUSION: 1. Limited exam because of lack of intravenous contrast. 2. Phase contrast study was performed. Correlation ultrasound would be of benefit. Stenosis of the left does not not appear to be hemodynamically significant. _ Percent stenosis is calculated using the diameter of the stenotic region over the diameter of the normal distal internal carotid artery _ Head MRI 01/26/18 10:49 CONCLUSION: 1. Encephalomalacia involving the left occipital lobe with ex vacuo dilatation of the atrium of the left lateral ventricle. 2. No acute infarct, acute hemorrhage, midline shift or extra-axial fluid collections. Head MRA 01/26/18 10:49 CONCLUSION: 1. Anatomic variant of the [place] of [place] as above. 2. Otherwise, intracranial vessels are all patent without aneurysmal disease. Cervical Spine MRI 01/26/18 10:50 CONCLUSION: 1. Small broad-based central to left paracentral focal disc bulges at C4-5 and C5-6 resulting and mild spinal stenosis and mild bilateral foraminal narrowing. Mild facet joint hypertrophy is noted bilaterally at these levels. 2. Minimal diffuse disc bulges at C3-4 and C6-7. 3. Minimal bilateral foraminal narrowing at C3-4. <Richard Kuo - 01/27/18 08:50> Physical Exam Vital signs: Vital Signs 01/27/18 08:00 01/27/18 11:19 01/27/18 12:00 Temperature 101.5 F H 99.1 F Pulse Rate 92 H 84 Respiratory Rate 18 18 Blood Pressure 141/63 H 143/64 H Pulse Oximetry 94 L 95 95 01/27/18 16:00 01/27/18 20:00 01/28/18 00:00 Temperature 97.9 F 102.0 F H 100.8 F H Pulse Rate 86 94 H 75 Respiratory Rate 16 20 20 Blood Pressure 134/62 129/62 110/76 Pulse Oximetry 95 94 L 96 01/28/18 04:00 Temperature 98.8 F Pulse Rate Respiratory Rate Blood Pressure Pulse Oximetry Intake & Output 01/27/18 01/27/18 01/28/18 06:59 18:59 06:59 Intake Total 500 / 500 2920 / 2920 1000 / 1000 Output Total 400 / 400 1000 / 1000 Balance 100 / 100 1920 / 1920 1000 / 1000 Weight 73.4 kg Intake: IV 1720 / 1720 1000 / 1000 Novastan Inj 250 MG In NS Inj 250 / 250 247.5 ML @ Per Protocol IV.CONT TITRATE PRN Rx#:[id number] 1/2 Normal Saline Inj 1,000 ML 1000 / 1000 @ 70 mls/hr IV.CONT .[id number] [facility] Rx#:[id number] Oral 500 / 500 1200 / 1200 Output: Urine 400 / 400 1000 / 1000 Other: # Voids 2 Date of Last Bowel Movement 01/23/18 01/23/18 01/23/18 <Stephanie Calzada - 01/28/18 04:53> Vital Signs 01/26/18 10:00 01/26/18 12:00 01/26/18 14:00 Temperature 99.3 F Pulse Rate 92 H 76 80 Respiratory Rate 22 Blood Pressure 154/52 H Pulse Oximetry 95 01/26/18 16:00 01/26/18 18:00 01/26/18 19:15 Temperature 99.5 F Pulse Rate 88 84 Respiratory Rate 20 18 18 Blood Pressure 134/54 L Pulse Oximetry 92 L 01/26/18 20:00 01/26/18 20:59 01/27/18 00:00 Temperature 99.1 F 97.1 F L Pulse Rate 80 84 Respiratory Rate 15 18 Blood Pressure 122/60 137/65 Pulse Oximetry 95 95 94 L 01/27/18 04:00 Temperature 97.7 F Pulse Rate 86 Respiratory Rate 19 Blood Pressure 117/55 L Pulse Oximetry 96 Intake & Output 01/26/18 01/27/18 01/27/18 18:59 06:59 18:59 Intake Total 850 / 850 500 / 500 1470 / 1470 Output Total 900 / 900 400 / 400 Balance -50 / -50 100 / 100 1470 / 1470 Weight 73.4 kg Intake: IV 250 / 250 1470 / 1470 Novastan Inj 250 MG In NS Inj 250 / 250 247.5 ML @ Per Protocol IV.CONT TITRATE PRN Rx#:[id number] Oral 600 / 600 500 / 500 Output: Urine 400 / 400 Urine Amount (Catheter) 900 / 900 Indwelling Urethral Catheter 900 / 900 Other: Date of Last Bowel Movement 01/19/18 01/23/18 # Bowel Movements 0 <Richard Kuo - 01/27/18 08:50> Narrative: GENERAL: Lying in bed, NAD SKIN: Warm and dry. Bandages on chest and bilateral groins c/d/i. Lower back above anal crease with some redness and irritation; nttp. CARDIOVASCULAR: Regular rate and rhythm. RESPIRATORY: No accessory muscle use. Clear to auscultation. Breath sounds equal bilaterally. GASTROINTESTINAL: Abdomen soft, non-tender, nondistended. MUSCULOSKELETAL: Extremities warm to touch. No cyanosis. Improved bilateral lower extremity edema. NEUROLOGICAL: Awake and alert. Normal speech. CN II-XII grossly intact. Bilateral UE with normal strength and sensation. Pulses intact. RUE with continued dysmetria when trying to reach for objects at a distance. Left leg with decreased dorsiflexion strength, stable. Improving sensation of LLE PSYCHIATRIC: Appropriate mood and affect; insight and judgment normal. <Richard Kuo - 01/27/18 10:21> - Urinary Catheter Management Indwelling Urethral Catheter Cath placed during this visit: no <Stephanie Calzada - 01/28/18 04:53> yes, but has since been removed by the nurse <Ricahrd Kuo - 01/27/18 10:21> Reason for continuing: Decision to DC catheter <Richard Kuo - 01/27/18 08 :50> Insertion date: 01/25/18 <Richard Kuo 01/27/18 08:50> Insertion time: 12:59 <Richard Kuo 01/27/18 08:50> Removal date: 01/26/18 <Richard Kuo 01/27/18 08:50> Removal time: 17:00 <Richard Kuo 01/27/18 08:50> Assessment and Plan - Assessment (1) SIRS (systemic inflammatory response syndrome) Code(s): R65.10 - Systemic inflammatory response syndrome (SIRS) of non- infectious origin without acute organ dysfunction Status: Acute (2) Pain in both lower legs Code(s): M79.661 - Pain in right lower leg; M79.662 - Pain in left lower leg Status: Acute (3) Heparin induced thrombocytopenia Code(s): D75.82 - Heparin induced thrombocytopenia (HIT) Status: Acute (4) Hypertension Code(s): I10 - Essential (primary) hypertension Status: Acute (5) EVON (acute kidney injury) Code(s): N17.9 - Acute kidney failure, unspecified Status: Acute (6) Metastatic primary lung cancer Code(s): C34.90 - Malignant neoplasm of unspecified part of unspecified bronchus or lung Status: Acute (7) Thrombosis of right saphenous vein Code(s): I82.811 - Embolism and thrombosis of superficial veins of right lower extremity Status: Acute (8) Anemia Code(s): D64.9 - Anemia, unspecified Status: Acute (9) Avascular necrosis of hip Code(s): M87.059 - Idiopathic aseptic necrosis of unspecified femur Status: Acute (10) Atrial fibrillation Code(s): I48.91 - Unspecified atrial fibrillation Status: Acute (11) Nutrition, metabolism, and development symptoms Code(s): R63.8 - Other symptoms and signs concerning food and fluid intake Status: Acute <Stephanie Calzada - 01/28/18 04:53> (1) SIRS (systemic inflammatory response syndrome) Code(s): R65.10 - Systemic inflammatory response syndrome (SIRS) of non- infectious origin without acute organ dysfunction Status: Acute Plan: New fever this morning of 101.5. Stable leukocytosis No obvious source of infection, however inflammatory response could be related to malignancy vs thrombosis. CBC: Stable WBC and neutrophils Chest x-ray (01/20): Stable from admission Urinalysis (01/20): Negative leukocyte esterase and nitrite, large occult blood, 100 protein, rare bacteria; otherwise negative Lactic acid 0.7; ESR 66 Blood cultures 01/21/18: NGTD Stopped antibiotics: -Vancomycin () -Cefepime 2g 24H () -If new fever>101: -Repeat blood cultures -Check CXR, UA -Continue incentive spirometry -Physical therapy, OOB (2) Pain in both lower legs Code(s): M79.661 - Pain in right lower leg; M79.662 - Pain in left lower leg Status: Acute Plan: Patient presented after worsening pain and weakness in bilateral legs. Upon further discussion with patient, has signs and symptoms of peripheral arterial disease. Also with associated neuropathy and weakness upon admission. 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 -Ordered Decadron 10mg IV once, which did help with the pain -EMG pending -Vascular lz-[id number] recs -Pt has changes of decrease blood flow in feet. Throwing embolic material distally -POD#2 axillobifemoral bypass along with coiling proximal ilial flow -Tolerated procedure well. Feet warm and normal cap refill -Heme/onc consulted -Treating HIT with argatroban -PT evaluating -recommend home health -Pain management -Oxycodone 5mg q8H pain 1-5, 10mg pain 6-10 -Morphine 1mg breakthrough pain (3) Heparin induced thrombocytopenia Code(s): D75.82 - Heparin induced thrombocytopenia (HIT) Status: Acute Plan: Postop from lobectomy and s/p heparin 9 days on admission Heparin-induced thrombocytopenia antibody positive Platelets tended down after surgery No transfusion recommended at this time due to possibility of further coagulation Hold all heparin forms Decreased lyrica to 50mg due to side effect of thrombocytopenia Heme/onc consulted-HIT with thrombosis -On argatroban gtt -Once platelets>100, will then transition to Eliquis (4) Hypertension Code(s): I10 - Essential (primary) hypertension Status: Acute Plan: Pt with BP up to 170s/70s post-op. Started on clonidine and nitro patch initially, d/c post-op BP trending down today -Stop procardia -Continue metoprolol 25mg BID -Clonidine PO PRN SBP>180 (5) EVON (acute kidney injury) Code(s): N17.9 - Acute kidney failure, unspecified Status: Acute Plan: Increasing serum creatinine during hospitalization. Admitted with Cr of 1.2. CMP from 06/28/17 with Cr of 0.95 Aortic CTA shows infarct of inferior pole of right kidney of unknown age. Possibly related to contrast administration during hospitalization Cr stable Will watch closely post-op -Monitor I/Os, urine output -Monitor BMP -Avoid nephrotoxic agents -Avoid further contrast studies if able -Can restart fluids if needed -Renal consulted -Suspect contrast nephrotoxicity -Serum complements wnl; urine eosinophils negative -Stopped IV fluids due to positive fluid status (6) Metastatic primary lung cancer Code(s): C34.90 - Malignant neoplasm of unspecified part of unspecified bronchus or lung Status: Acute Plan: Status post chemo in November, status post lobectomy Recent PET scans negative MRI spine shows possible mets Repeat brain MRI with no acute change -Management per oncology team; discussing case with patients Oncologist in [place] , Dr. Dillard -Regarding possible drop mets -Unsure of etiology at this time -Radiation oncology consulted -No therapy at this time due to low platelets (7) Thrombosis of right saphenous vein Code(s): I82.811 - Embolism and thrombosis of superficial veins of right lower extremity Status: Acute Plan: Lower extremity superficial vein, generally benign and self-limited however a larger vein is involved in this case Caution with propagation into the DVT system and PE possibility Likely due to abnormal coagulation at this time Elevation Pain management (8) Anemia Code(s): D64.9 - Anemia, unspecified Status: Acute Plan: No history of anemia per patient Likely chronic anemia, patient at high risk for bleeding due to thrombocytopenia Unsure of the exact cause, chemotherapy vs recent surgery vs chronic anemia (9) Avascular necrosis of hip Code(s): M87.059 - Idiopathic aseptic necrosis of unspecified femur Status: Acute Plan: MRI of sacrum revealed findings of avascular necrosis involving the right femoral head. No collapse. Pt reports chronic hip pain, nothing acute Unsure etiology Did receive IV steroids on 01/23 -Will hold further steroids at this time -Continue to monitor (10) Atrial fibrillation Code(s): I48.91 - Unspecified atrial fibrillation Status: Acute Plan: History of Afib. Controlled rate Echo shows EF of 50-55% Segmental wall motion abnormalities with hypokinesis No episodes of Afib during admission, d/c Telemetry Continue metoprolol (11) Nutrition, metabolism, and development symptoms Code(s): R63.8 - Other symptoms and signs concerning food and fluid intake Status: Acute Plan: Fluids: Holding IV Electrolytes: Follow-up BMP and replete as needed Nutrition: Regular diet DVT prophylaxis: Holding all heparin products, argatroban gtt Incentive spirometry <Richard Kuo - 01/27/18 10:16> - Assessment and Plan 62 y/o male with history of lung cancer with mets to brain, hypertension, atrial fibrillation presented on admission with bilateral leg pain/weakness. Admitted for workup. 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 Leg pain being worked up with etiology of vascular vs neurologic vs infectious vs other. Currently on argatroban gtt, awaiting improvement of platelets. Post-op from axillofemoral bypass with coiling. Pain and blood flow improved. Awaiting improvement of platelets for transition to oral anticoagulant. <Richard Kuo - 01/27/18 09:14> Discharge Planning: Pending improvement of platelets and workup of leg pain. PT recommends home health upon discharge Advanced Directives discussed with pt on 01/22. Paperwork completed. Pt's is Health care surrogate. Confirmed full code status and <Richard Kuo - 01/27/18 09:14> - Attending Attestation The exam, history, and the medical decision-making described in the above note were d/w resident. I reviewed and agree with plan of care. <Stephanie Calzada - 01/28/18 04:53> <Richard Kuo - Last Filed: 01/27/18 10:16> (8) Anemia Qualifiers: Anemia type: bone marrow failure Bone marrow failure anemia type: pancytopenia, antineoplastic chemotherapy-induced Qualified Code(s): D61.810 - Antineoplastic chemotherapy induced pancytopenia; T45.1X5A - Adverse effect of antineoplastic and immunosuppressive drugs, initial encounter (9) Avascular necrosis of hip Qualifiers: Laterality: right Qualified Code(s): M87.051 - Idiopathic aseptic necrosis of right femur <Stephanie Calzada - Last Filed: 01/28/18 04:53> (8) Anemia Qualifiers: Qualified Code(s): D61.810 - Antineoplastic chemotherapy induced pancytopenia ; T45.1X5A - Adverse effect of antineoplastic and immunosuppressive drugs, initial encounter (9) Avascular necrosis of hip Qualifiers: Qualified Code(s): M87.051 - Idiopathic aseptic necrosis of right femur <Richard Kuo - Last Filed: 01/27/18 10:16> (8) Anemia Qualifiers: Anemia type: bone marrow failure Bone marrow failure anemia type: pancytopenia, antineoplastic chemotherapy-induced Qualified Code(s): D61.810 - Antineoplastic chemotherapy induced pancytopenia; T45.1X5A - Adverse effect of antineoplastic and immunosuppressive drugs, initial encounter (9) Avascular necrosis of hip Qualifiers: Laterality: right Qualified Code(s): M87.051 - Idiopathic aseptic necrosis of right femur <Stephanie Calzada - Last Filed: 01/28/18 04:53> (8) Anemia Qualifiers: Qualified Code(s): D61.810 - Antineoplastic chemotherapy induced pancytopenia ; T45.1X5A - Adverse effect of antineoplastic and immunosuppressive drugs, initial encounter (9) Avascular necrosis of hip Qualifiers: Qualified Code(s): M87.051 - Idiopathic aseptic necrosis of right femur
[2018-01-27] MEDS ORDERED: Naloxone Inj 0.4 MG/ML Vial IV.PUSH PRN (09:48)
[2018-01-27] MEDS: Folic Acid 1 MG Tablet PO SCH (09:57)
[2018-01-27] MEDS: Metoprolol Tartrate 25 MG Tablet PO SCH ×2 (09:57→21:41)
[2018-01-27] MEDS: NIFEdipine 10 MG Capsule PO SCH (10:12)
[2018-01-27] MEDS: Pregabalin 75 MG Capsule PO SCH (10:12)
--- NOTE | 2018-01-27 11:09 | P.PNONC ---
Subjective Interval history: T-max 101.5 this morning Reports he still has decreased pain in his legs No oozing Hoping to get up and walk today Wants to take a shower Objective Vital Signs/Intake & Output: Vital Signs 01/26/18 12:00 01/26/18 14:00 01/26/18 16:00 Temperature 99.3 F 99.5 F Pulse Rate 76 80 88 Respiratory Rate 22 20 Blood Pressure 154/52 H 134/54 L Pulse Oximetry 95 92 L 01/26/18 18:00 01/26/18 19:15 01/26/18 20:00 Temperature 99.1 F Pulse Rate 84 80 Respiratory Rate 18 18 15 Blood Pressure 122/60 Pulse Oximetry 95 01/26/18 20:59 01/27/18 00:00 01/27/18 04:00 Temperature 97.1 F L 97.7 F Pulse Rate 84 86 Respiratory Rate 18 19 Blood Pressure 137/65 117/55 L Pulse Oximetry 95 94 L 96 01/27/18 08:00 Temperature 101.5 F H Pulse Rate 92 H Respiratory Rate 18 Blood Pressure 141/63 H Pulse Oximetry 94 L Intake & Output 01/26/18 01/27/18 01/27/18 18:59 06:59 18:59 Intake Total 850 / 850 500 / 500 1470 / 1470 Output Total 900 / 900 400 / 400 Balance -50 / -50 100 / 100 1470 / 1470 Weight 161 lb 13.109 oz Intake: IV 250 / 250 1470 / 1470 Novastan Inj 250 MG In NS Inj 250 / 250 247.5 ML @ Per Protocol IV.CONT TITRATE PRN Rx#:[id number] Oral 600 / 600 500 / 500 Output: Urine 400 / 400 Urine Amount (Catheter) 900 / 900 Indwelling Urethral Catheter 900 / 900 Other: Date of Last Bowel Movement 01/19/18 01/23/18 # Bowel Movements 0 Result Diagrams: 01/27/18 05:21 01/27/18 05:21 Laboratory Results: Laboratory Results - last 24 hr 01/24/18 01/27/18 01/27/18 16:20 05:21 05:21 WBC 13.4 H RBC 2.73 L Hgb 8.3 L Hct 26.0 L MCV 95.0 D MCH 30.3 MCHC 31.9 L RDW 18.1 H Plt Count 47 L MPV 8.3 Prelim Diff (Auto) Slide review pending Neut % (Auto) 70.3 H Lymph % (Auto) 14.1 [place] % (Auto) 9.7 H Eos % (Auto) 5.4 H Baso % (Auto) 0.5 Neut # (Auto) 9.4 H Lymph # (Auto) 1.9 [place] # (Auto) 1.3 H Eos # (Auto) 0.7 H Baso # (Auto) 0.1 WBC Differential . Diff Scan Auto diff confirmed Differential Comment . Platelet Estimate Low L Platelet Morphology Normal PT INR APTT Sodium 139 Potassium 4.0 Chloride 107 Carbon Dioxide 25.5 Anion Gap 7 BUN 20 H Creatinine 1.62 H Estimated GFR 43 L Random Glucose 95 Calcium 7.7 L Phosphorus 2.0 L D Total Bilirubin 0.4 AST 71 H ALT 34 Alkaline Phosphatase 64 Total Protein 5.6 L Albumin 1.9 L Blood Type O Positive Antibody Screen Negative MTS Gel Crossmatch See Detail Bld Prod Order Comment 01/27/18 01/27/18 05:21 05:21 WBC RBC Hgb Hct MCV MCH MCHC RDW Plt Count MPV Prelim Diff (Auto) Neut % (Auto) Lymph % (Auto) [place] % (Auto) Eos % (Auto) Baso % (Auto) Neut # (Auto) Lymph # (Auto) [place] # (Auto) Eos # (Auto) Baso # (Auto) WBC Differential Diff Scan Differential Comment Platelet Estimate Platelet Morphology PT 29.3 H D INR 2.9 APTT 53.5 H Sodium Potassium Chloride Carbon Dioxide Anion Gap BUN Creatinine Estimated GFR Random Glucose Calcium Phosphorus Total Bilirubin AST ALT Alkaline Phosphatase Total Protein Albumin Blood Type Antibody Screen MTS Gel Crossmatch Bld Prod Order Comment Culture Results: Microbiology 01/21/18 10:25 Aerobic Blood Culture - Final Blood - Peripheral No growth in 5 days Anaerobic Blood Culture - Final No growth in 5 days 01/21/18 10:14 Aerobic Blood Culture - Final Blood - Peripheral No growth in 5 days Anaerobic Blood Culture - Final No growth in 5 days Imaging Studies: Impressions Pelvic Arteriogram 01/25/18 00:00 CONCLUSION: 1. Successful deployment of bilateral 8 mm x 20 cm interlock coils within the central portions of the common iliac arteries bilaterally. 2. Procedure was done in conjunction with the surgical axillary bifemoral bypass. Neck MRA 01/26/18 00:00 CONCLUSION: 1. Limited exam because of lack of intravenous contrast. 2. Phase contrast study was performed. Correlation ultrasound would be of benefit. Stenosis of the left does not not appear to be hemodynamically significant. _ Percent stenosis is calculated using the diameter of the stenotic region over the diameter of the normal distal internal carotid artery _ Head MRI 01/26/18 10:49 CONCLUSION: 1. Encephalomalacia involving the left occipital lobe with ex vacuo dilatation of the atrium of the left lateral ventricle. 2. No acute infarct, acute hemorrhage, midline shift or extra-axial fluid collections. Head MRA 01/26/18 10:49 CONCLUSION: 1. Anatomic variant of the [place] as above. 2. Otherwise, intracranial vessels are all patent without aneurysmal disease. Cervical Spine MRI 01/26/18 10:50 CONCLUSION: 1. Small broad-based central to left paracentral focal disc bulges at C4-5 and C5-6 resulting and mild spinal stenosis and mild bilateral foraminal narrowing. Mild facet joint hypertrophy is noted bilaterally at these levels. 2. Minimal diffuse disc bulges at C3-4 and C6-7. 3. Minimal bilateral foraminal narrowing at C3-4. Medications: Active Medications Generic Name Dose Route Start Last Admin Trade Name Freq PRN Reason Stop Dose Admin Al Hydroxide/Mg Hydroxide 30 ml 01/17/18 14:19 01/23/18 20:34 Milk Of Magnesia Liq PO 30 ml Q12H PRN Administration Mild Constipation Budesonide/Formoterol Fumarate 2 puff 01/17/18 14:00 01/27/18 09:58 Symbicort 160/4.5 Mcg Inh INH 2 puff BID SHAVONNE Administration Folic Acid 1 mg 01/17/18 13:45 01/27/18 09:57 Folic Acid PO 1 mg DAILY SHAVONNE Administration Argatroban 250 mg/ Sodium 250 mls @ 0 mls/hr 01/18/18 15:00 01/26/18 12:05 Chloride IV.CONT 2 mcg/kg/min TITRATE PRN 8.29 mls/hr Per Protocol Administration Protocol Per Protocol Sodium Chloride 1,000 mls @ 0 mls/hr 01/21/18 09:15 01/21/18 18:07 Ns Inj IV.SIG Infused BOLUS SHAVONNE Infusion Wide Open Metoprolol Tartrate 25 mg 01/17/18 13:45 01/27/18 09:57 Lopressor PO 25 mg BID SHAVONNE Administration Morphine Sulfate 1 mg 01/26/18 10:08 01/26/18 18:24 Morphine Inj IV.PUSH 1 mg Q6HR PRN Administration PAIN 6-10;IF UNABLE TO TAKE PO Pantoprazole Sodium 40 mg 01/17/18 14:00 01/27/18 09:56 Protonix PO 40 mg DAILY SHAVONNE Administration Sennosides 17.2 mg 01/17/18 14:08 01/21/18 22:30 Senokot PO 17.2 mg Q12H PRN Administration Moderate Constipation Sodium Chloride 2 ml 01/17/18 11:17 01/20/18 20:43 Ns Flush IV.FLUSH 2 ml PRN PRN Administration FLUSH AFTER USING IV ACCESS Temazepam 15 mg 01/17/18 21:00 01/26/18 21:46 Restoril PO 15 mg HS PRN Administration INSOMNIA Objective Remarks: GENERAL: Middle-aged male patient asleep in bed on approach. Awakens easily to verbal stimuli. SKIN: Warm and dry. Bilateral groin dressings dry and intact. HEAD: Normocephalic. EYES: No scleral icterus. No injection or drainage. NECK: Supple, trachea midline. CARDIOVASCULAR: +S1/S2 without murmurs. RESPIRATORY: Anterior breath sounds clear, non-labored. GASTROINTESTINAL: Abdomen soft, non-tender, nondistended. EXTREMITIES: No edema. Feet warm to touch. MUSCULOSKELETAL: Adequate muscle tone. NEUROLOGICAL: No obvious focal deficit. Awake, alert, and oriented x3. 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 Bernstein is a pleasant 62-year-old gentleman with a history of non-small cell lung cancer with brain metastasis, status post craniotomy with resection followed by stereotactic radiosurgery with gamma knife, 3-4 cycles of preop Immunochemotherapy with 2 doses of Platinol and Alimta he also underwent thoracotomy and resection of the left upper lobe and wedge resection of the left lower lobe on 01/01/2018. Patient had minimal residual disease of 0.6 cm and also the lymph nodes were negative. Margins were also negative. During this admission the patient was found to have severe thrombocytopenia. Patient did have recent exposure to subcutaneous heparin after his recent surgery. Plan: 1. Begin argatroban bridge to oral anticoagulation once platelet count greater than 100,000. Closely monitor liver enzymes as elevation can cause coagulopathy while on the argatroban. 2. Pt s/p axillobifemoral bypass; reports pain is much improved. 3. Patient noted to have fever this morning. I have requested chest x-ray, blood cultures and urinalysis with C&S if indicated. 4. Continue supportive care. - Attending Statement The exam, history, and the medical decision-making described in the above note were completed with the assistance of the mid-level provider. I reviewed and agree with the findings presented. I attest that I had a [id number] encounter with the patient on the same day, and personally performed and documented my assessment and findings in the medical record. Leg pain has resolved. C/O groin pain. Able to walk in the room with . Right arm weakness is improving. Both feet are warm and no more cyanosis. Plar are still low. Continue argatroban. Had fever this morning. BC drawn. Monitor cbc.
--- NOTE | 2018-01-27 11:16 | P.PNNEU ---
Subjective Subjective Comments: Cross cover no cp, no dyspnea, no lugo, no vision loss Medication List: no cp, no dyspnea, no lugo, no focal weakness, no vision loss. Arm strength improved leg strength improved Active Medications: Active Medications Acetaminophen (Tylenol) 650 mg PO Q4H PRN PRN Reason: Temp > 100.4 Al Hydroxide/Mg Hydroxide (Milk Of Magnesia Liq) 30 ml PO Q12H PRN PRN Reason: Mild Constipation Last Admin: 01/23/18 20:34 Dose: 30 ml Bisacodyl (Dulcolax Supp) 10 mg RECTAL DAILY PRN PRN Reason: SEVERE CONSITIPATION Budesonide/Formoterol Fumarate (Symbicort 160/4.5 Mcg Inh) 2 puff INH BID [facility] Last Admin: 01/27/18 09:58 Dose: 2 puff Clonidine HCl (Catapres) 0.1 mg PO Q6H PRN PRN Reason: SEE LABEL COMMENTS Folic Acid (Folic Acid) 1 mg PO DAILY [facility] Last Admin: 01/27/18 09:57 Dose: 1 mg Argatroban 250 mg/ Sodium (Chloride) 250 mls @ 0 mls/hr IV.CONT TITRATE PRN; Protocol PRN Reason: Per Protocol Last Admin: 01/26/18 12:05 Dose: 2 mcg/kg/min, 8.29 mls/hr Sodium Chloride (Ns Inj) 1,000 mls @ 0 mls/hr IV.SIG BOLUS [facility] Last Infusion: 01/21/18 18:07 Dose: Infused Lactulose (Lactulose Liq) 30 ml PO DAILY PRN PRN Reason: SEVERE CONSITIPATION Metoprolol Tartrate (Lopressor) 25 mg PO BID [facility] Last Admin: 01/27/18 09:57 Dose: 25 mg Morphine Sulfate (Morphine Inj) 1 mg IV.PUSH Q6HR PRN PRN Reason: PAIN 6-10;IF UNABLE TO TAKE PO Last Admin: 01/26/18 18:24 Dose: 1 mg Naloxone HCl (Narcan Inj) 0.4 mg IV.PUSH UNSCH PRN PRN Reason: SEE LABEL COMMENTS Oxycodone HCl (Roxicodone) 5 mg PO Q8H PRN PRN Reason: PAIN SCALE 1 TO 5 Oxycodone HCl (Roxicodone) 10 mg PO Q8H PRN PRN Reason: PAIN SCALE 6 TO 10 Pantoprazole Sodium (Protonix) 40 mg PO DAILY SHAVONNE Last Admin: 01/27/18 09:56 Dose: 40 mg Pregabalin (Lyrica) 50 mg PO BID [facility] Sennosides (Senokot) 17.2 mg PO Q12H PRN PRN Reason: Moderate Constipation Last Admin: 01/21/18 22:30 Dose: 17.2 mg Sodium Chloride (Ns Flush) 2 ml IV.FLUSH PRN PRN PRN Reason: FLUSH AFTER USING IV ACCESS Last Admin: 01/20/18 20:43 Dose: 2 ml Temazepam (Restoril) 15 mg PO HS PRN PRN Reason: INSOMNIA Last Admin: 01/26/18 21:46 Dose: 15 mg Allergies/Adverse Reactions: Allergies Allergy/AdvReac Type Severity Reaction Status Date / Time No Known Allergies Allergy Unverified 01/17/18 11:06 Review of Systems All other systems reviewed negative except as stated in HPI Physical Exam Vital signs: Vital Signs 01/26/18 12:00 01/26/18 14:00 01/26/18 16:00 Temperature 99.3 F 99.5 F Pulse Rate 76 80 88 Respiratory Rate 22 20 Blood Pressure 154/52 H 134/54 L Pulse Oximetry 95 92 L 01/26/18 18:00 01/26/18 19:15 01/26/18 20:00 Temperature 99.1 F Pulse Rate 84 80 Respiratory Rate 18 18 15 Blood Pressure 122/60 Pulse Oximetry 95 01/26/18 20:59 01/27/18 00:00 01/27/18 04:00 Temperature 97.1 F L 97.7 F Pulse Rate 84 86 Respiratory Rate 18 19 Blood Pressure 137/65 117/55 L Pulse Oximetry 95 94 L 96 01/27/18 08:00 Temperature 101.5 F H Pulse Rate 92 H Respiratory Rate 18 Blood Pressure 141/63 H Pulse Oximetry 94 L Intake & Output 01/26/18 01/27/18 01/27/18 18:59 06:59 18:59 Intake Total 850 / 850 500 / 500 1470 / 1470 Output Total 900 / 900 400 / 400 Balance -50 / -50 100 / 100 1470 / 1470 Weight 73.4 kg Intake: IV 250 / 250 1470 / 1470 Novastan Inj 250 MG In NS Inj 250 / 250 247.5 ML @ Per Protocol IV.CONT TITRATE PRN Rx#:[id number] Oral 600 / 600 500 / 500 Output: Urine 400 / 400 Urine Amount (Catheter) 900 / 900 Indwelling Urethral Catheter 900 / 900 Other: Date of Last Bowel Movement 01/19/18 01/23/18 # Bowel Movements 0 Narrative: GENERAL: Lying in bed, NAD SKIN: Warm and dry. Bandages on chest and bilateral groins CARDIOVASCULAR: Regular rate and rhythm. RESPIRATORY: No accessory muscle use. GASTROINTESTINAL: Abdomen soft, non-tender, nondistended. MUSCULOSKELETAL: Extremities warm to touch. No cyanosis. Improved bilateral lower extremity edema. NEUROLOGICAL: Awake alert oriented 3 no aphasia, no facial asymmetry tongue midline, able raise both upper extremity slightly above shoulder level good assessment rn strength bilaterally. Radial pulse strong on the left compared to right mild left foot dorsiflexion weakness unable to raise both lower extremities gravity and warm - Constitutional no acute distress - Routine HEENT Exam Head: Present: normocephalic Eye: Present: EOMI - Urinary Catheter Management Indwelling Urethral Catheter Cath placed during this visit: yes, but has since been removed by the nurse Reason for continuing: Decision to DC catheter Insertion date: 01/25/18 Insertion time: 12:59 Removal date: 01/26/18 Removal time: 17:00 Objective Laboratory Results - last 24 hr 01/24/18 01/27/18 01/27/18 16:20 05:21 05:21 WBC 13.4 H RBC 2.73 L Hgb 8.3 L Hct 26.0 L MCV 95.0 D MCH 30.3 MCHC 31.9 L RDW 18.1 H Plt Count 47 L MPV 8.3 Prelim Diff (Auto) Slide review pending Neut % (Auto) 70.3 H Lymph % (Auto) 14.1 [place] % (Auto) 9.7 H Eos % (Auto) 5.4 H Baso % (Auto) 0.5 Neut # (Auto) 9.4 H Lymph # (Auto) 1.9 [place] # (Auto) 1.3 H Eos # (Auto) 0.7 H Baso # (Auto) 0.1 WBC Differential . Diff Scan Auto diff confirmed Differential Comment . Platelet Estimate Low L Platelet Morphology Normal PT INR APTT Sodium 139 Potassium 4.0 Chloride 107 Carbon Dioxide 25.5 Anion Gap 7 BUN 20 H Creatinine 1.62 H Estimated GFR 43 L Random Glucose 95 Calcium 7.7 L Phosphorus 2.0 L D Total Bilirubin 0.4 AST 71 H ALT 34 Alkaline Phosphatase 64 Total Protein 5.6 L Albumin 1.9 L Blood Type O Positive Antibody Screen Negative MTS Gel Crossmatch See Detail Bld Prod Order Comment 01/27/18 01/27/18 05:21 05:21 WBC RBC Hgb Hct MCV MCH MCHC RDW Plt Count MPV Prelim Diff (Auto) Neut % (Auto) Lymph % (Auto) [place] % (Auto) Eos % (Auto) Baso % (Auto) Neut # (Auto) Lymph # (Auto) [place] # (Auto) Eos # (Auto) Baso # (Auto) WBC Differential Diff Scan Differential Comment Platelet Estimate Platelet Morphology PT 29.3 H D INR 2.9 APTT 53.5 H Sodium Potassium Chloride Carbon Dioxide Anion Gap BUN Creatinine Estimated GFR Random Glucose Calcium Phosphorus Total Bilirubin AST ALT Alkaline Phosphatase Total Protein Albumin Blood Type Antibody Screen MTS Gel Crossmatch Bld Prod Order Comment Microbiology 01/21/18 10:25 Aerobic Blood Culture - Final Blood - Peripheral No growth in 5 days Anaerobic Blood Culture - Final No growth in 5 days 01/21/18 10:14 Aerobic Blood Culture - Final Blood - Peripheral No growth in 5 days Anaerobic Blood Culture - Final No growth in 5 days Review/Management - Diagnosis (1) Metastatic primary lung cancer Code(s): C34.90 - Malignant neoplasm of unspecified part of unspecified bronchus or lung Status: Acute Current Visit: Yes (2) Lower extremity weakness Code(s): R29.898 - Other symptoms and signs involving the musculoskeletal system Status: Acute Current Visit: Yes (3) Atrial fibrillation Code(s): I48.91 - Unspecified atrial fibrillation Status: Acute Current Visit: Yes - Review/Management Plan: D/W DR LING TRIAL OF DDECADRON 4MG QID MRI RPT NOT YET DONE PT EVAL cta showed some blockages but does have flow in ble arterial dr hannah not convinced the thoracic abn is met could be vascular? i dw neurorad check cpk labs hit rx per dr pablo hernandez recently fu echo some infarct in kidney ? 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 will have to repeat mri t spine concerned with new weak left ankle 01/22/18 mri t spine no change looks more peripheral and not in cord neurorads did not think this was a cord avm vascular feels sx not from aortic dz with the left foot drop need emg and worry about carcinomatous meningits needs LP when able i will dw heme about plts try lyrica and neurontin not helping 01/23/18 no major change emg pend try decadron check cpk similar sx to a diabetic amyotrophy picture check mri of the ls plexus and pelvis 01/24/18 pain much better plt 49k should be able to do LP soon maybe a llittle stronger left ta ? aseptic necrosis hip so will hold further steroids and please have heme order LP jermaine when cleared plexus mri neg 01/25/18 i austyn Ke[facility] vascular and dr shah no need to do LP now as cannot rx with chemo so surgery for what was felt yest to be ischemia sudden change watch renal fx emg pend 01/25/18/ doing well post op if pain does not return then yessy vascular creat 1.4 plt down a little legs warm looks well will fu monday if stillhere. emg possibly today o/w i will have to do o/p 01/27/2018 Arm strength improved. Leg strength improved after revascularization procedure although chronic left foot weakness Discussed with patient and spouse follow exam (2) Lower extremity weakness Qualifiers: Laterality: bilateral Qualified Code(s): R29.898 - Other symptoms and signs involving the musculoskeletal system
[2018-01-27] MEDS: Acetaminophen 325 MG Tablet PO PRN ×2 (11:24→21:41)
--- NOTE | 2018-01-27 11:51 | P.PNNP ---
Subjective Interval history: This patient is a 62-year-old male with a complicated medical history. 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 Subsequently went to the [facility] for further treatment which confirmed presence of a 7.4 cm left upper lobe lung mass. Underwent resection of brain mass June 2017 and subsequently started on chemotherapy which included keytrude and Platinol both apparently can be associated with renal insufficiency with patient is unaware of this occurring by history. Last cycle of chemotherapy said to be November 20, 2017. He underwent a thoracotomy January 01, 2018 with wedge resection left upper lobe. Hospital course said to have gone well at the [facility]. Subsequently was discharged but presented to this institution with severe right leg pain. CTA was performed at this institution January 17, 2018 which revealed infarction of the inferior pole of the right kidney of unknown age. Also severe chronic infrarenal atherosclerotic disease causing severe narrowing of the distal aorta and proximal inflow vessels. Patient's creatinine level at the time of presentation 1.2 no previous levels available to me. Creatinine level has been rising subsequently to 1.8 today. 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 01/23/18 Pt going to MRI today of sacrum and coccyx for further eval of L leg weakness. January 24, 2018 Patient with no verbal complaints. Indicating he is improving. 01/26/18 Pt s/p axillobifemoral bypass and endovascular coiling of the common iliac arteries 01/25/18 Seems to be doing quite well In ICU now, but being downgraded this afternoon. If having some pronator drift and is scheduled for non-contrasted MRI of head and next this afternoon. On vanco, but held today as levels supratherapeutic. No complaints. present in room. 01/27/18 Patient now status post coil placement iliac arteries as well as axillobifemoral bypass. Patient did undergo pelvic angiogram yesterday also. Patient indicating that he may have some weakness of his right upper extremity since surgery. Otherwise no verbal complaints. by bedside. Physical Exam Vital signs: Vital Signs 01/26/18 12:00 01/26/18 14:00 01/26/18 16:00 Temperature 99.3 F 99.5 F Pulse Rate 76 80 88 Respiratory Rate 22 20 Blood Pressure 154/52 H 134/54 L Pulse Oximetry 95 92 L 01/26/18 18:00 01/26/18 19:15 01/26/18 20:00 Temperature 99.1 F Pulse Rate 84 80 Respiratory Rate 18 18 15 Blood Pressure 122/60 Pulse Oximetry 95 01/26/18 20:59 01/27/18 00:00 01/27/18 04:00 Temperature 97.1 F L 97.7 F Pulse Rate 84 86 Respiratory Rate 18 19 Blood Pressure 137/65 117/55 L Pulse Oximetry 95 94 L 96 01/27/18 08:00 01/27/18 11:19 Temperature 101.5 F H Pulse Rate 92 H Respiratory Rate 18 Blood Pressure 141/63 H Pulse Oximetry 94 L 95 Intake & Output 01/26/18 01/27/18 01/27/18 18:59 06:59 18:59 Intake Total 850 / 850 500 / 500 1470 / 1470 Output Total 900 / 900 400 / 400 Balance -50 / -50 100 / 100 1470 / 1470 Weight 73.4 kg Intake: IV 250 / 250 1470 / 1470 Novastan Inj 250 MG In NS Inj 250 / 250 247.5 ML @ Per Protocol IV.CONT TITRATE PRN Rx#:[id number] Oral 600 / 600 500 / 500 Output: Urine 400 / 400 Urine Amount (Catheter) 900 / 900 Indwelling Urethral Catheter 900 / 900 Other: Date of Last Bowel Movement 01/19/18 01/23/18 # Bowel Movements 0 Narrative: GENERAL: Lying in bed, NAD SKIN: Warm and dry. Bandages on chest and bilateral groins CARDIOVASCULAR: Regular rate and rhythm. RESPIRATORY: No accessory muscle use. Clear to auscultation. Breath sounds equal bilaterally. GASTROINTESTINAL: Abdomen soft, non-tender, nondistended. MUSCULOSKELETAL: Extremities warm to touch. No cyanosis. Improved bilateral lower extremity edema. NEUROLOGICAL: Patient appears to be alert and orientated. Muscle strength appears to be intact in both upper extremities with normal finger-nose coordination. Symptoms may be related to recent surgery advised to discuss this with the vascular surgeon. - Urinary Catheter Management Indwelling Urethral Catheter Cath placed during this visit: yes, but has since been removed by the nurse Reason for continuing: Decision to DC catheter Insertion date: 01/25/18 Insertion time: 12:59 Removal date: 01/26/18 Removal time: 17:00 Assessment and Plan - Assessment (1) EVON (acute kidney injury) Code(s): N17.9 - Acute kidney failure, unspecified Status: Acute Plan: Patient likely has developed some degree of contrast nephrotoxicity post CTA. Patient also has evidence of renal infarct involving the lower pole of the right kidney. Unfortunately cannot be certain as to the timing of the event. 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 Also mention of atrial fibrillation and a history. Potential for pre-existing renal insufficiency related to chemotherapy from [facility] as admitting SCr at 1.2. Creatinine level has risen since yesterday. Multiple possible contributory factors including pelvic angiogram although only a small amount of contrast was utilized per documentation. Also hemodynamic issues related to bypass surgery may also have influence his renal function as well as presence of vancomycin. Hopefully the creatinine level will stabilize and improve again but this remains to be determined as discussed with patient and . Medications should be adjusted for the patient's estimated GFR if clinically indicated. Avoid agents with significant potential for nephrotoxicity possible including NSAIDs for analgesia, iodine contrast agents. Gadolinium is contraindicated if the GFR is below 30. (2) Renal infarction Code(s): N28.0 - Ischemia and infarction of kidney Status: Acute Plan: Risk factors as described above for renal infarction. Timing of infarction uncertain and it may have been subacute or chronic in nature. Patient already on anticoagulation. No new recommendations from my point of view in regard to management of same.
--- NOTE | 2018-01-27 12:02 | XR ---
EXAM DATE: 01/27/2018 11:58 AM EDT AGE/SEX: 63 years / Male INDICATIONS: Shortness of breath. CLINICAL DATA: This is the patient's subsequent encounter. Patient reports that signs and symptoms h ave been present for 2 days and indicates a pain score of 8/10. MEDICAL/SURGICAL HISTORY: . Patient had a bypass two days ago, upper right chest. Malignant tu mor removed from upper left lobe of lung Jun 2017Chemo two rounds. . Bypass. [place] [facility] [place]. . FINDINGS: Evidence for previous surgery is seen in the left upper lobe with some volume loss. Minimal peribronchial thickening and parenchymal changes are seen in the left base. The right lung is mildly hyperinflated with apical pleural thickening. The heart and pulmonary vascularity are normal. The portion of the bony skeleton visualized is unremarkable. CONCLUSION: Evidence for previous surgery in the left upper lobe with some peribronchial thickening in the left l ower lobe. Right lung is clear. Electronically signed by: Reid Martin MD 01/27/2018 12:01 PM EDT
[2018-01-27] MEDS: Pregabalin 25 MG Capsule PO SCH ×2 (13:36→21:41)
[2018-01-27] MEDS: Sodium Chloride 0.45 % Inj 1,000 ML IV.CONT SCH (13:36)
--- NOTE | 2018-01-27 16:58 | P.PNVS ---
Subjective Subjective/Hospital Course: Patient seen and full consult dictated We will follow Thanks J 01/24/[address] Veras, interventional radiology and we jointly examined the patient and spoke to the and the patient. For details refer to my original consult from last week. On physical exam patient has more prominent changes as far as the decrease in blood flow in both feet. He still has dopplerable femoral and popliteal pulses as well as weak dorsalis pedis posterior tibial on the left and only posterior tibial on the right. In comparison to last week and this Monday, indeed toes are more dusky appearing with some cyanotic hue especially the right foot. Capillary refill is quite decreased at this time. There is no question that patient is throwing embolic material and showering microthrombi and micro emboli distally. Renal function is somewhat improved which is helpful and platelet count is slowly rising. This is a very complex situation and remedies are limited Patient is not a candidate for aortobifemoral bypass for this is a major surgery which patient would not sustain very well. The other option is placing iliac covered stents to push the clot aside. Unfortunately this would allow for aortic thrombotic material to flush downward unimpeded and with essentially worsened the situation. Therefore after discussing this with patient and family and then between Dr. Veras, Dr. Calzada and myself we agreed on following hybrid approach Patient will have axillobifemoral bypass in order to improve the blood flow to the legs and bypass the occluded area of aorta and iliac arteries. At the same , time Dr. Veras will coil the remaining proximal iliac flow in order to prevent clots from flushing down further. Between these 2 patient has the best chance to maintain the flow to the legs and minimize the chance of further distal embolization. Unfortunately patient does have metastatic lung cancer and his longevity is predicated upon this but also possible complications from the above-noted procedures for he will continue to have a low level consumption coagulopathy and may form clots in his axillobifemoral graft or in the distal [place] vessels. He will need to remain on full anticoagulation for the rest of his life probably go home on either factor VIIa inhibitor or thrombin inhibitor. I will also offer to the patient the option of going back to [place] where he already had lung surgery and brain surgery for they have established trust with that group of physicians and surgeons. Otherwise, patient is on schedule for tomorrow for axillobifemoral bypass and coiling of the iliacs. Discussed with hematology as well. I have extensively discussed the risks and benefits of the surgery with patient and his as well as potential risks including loss of both extremities and . 01/26/2018 Patient is status post axillobifemoral bypass and endovascular coiling of the common iliac arteries Incisions are clean and dry Patient is awake alert and oriented Patient has brisk flow in the axillofemoral graft and strong dopplerable popliteal and posterior tibial pulses Weak dorsalis pedis pulses Feet are nice and warm well perfused and capillary refill is normal Patient currently on argatroban and should probably go home on some oral anticoagulant probably Eliquis. Plan Transfer to floor Hep-Lock IV Out of bed Regular diet 01/27/2018 Patient doing well incisions are clean and dry Excellent flow in the axillofemoral portion of the graft into the both groins Both feet are nice and warm and well-perfused Patient still has some weakness in the right arm but this is improving since the surgery Patient ambulating in the corners without difficulty Greatly appreciate expertise by Dr. Calzada Fully agree with care and Dr. Hernandez hematology and Dr. Benjamin neurology valuable inputs and expertise are greatly appreciated Nothing to add from vascular point Objective Vital Signs / I&O: Vital Signs 01/26/18 18:00 01/26/18 19:15 01/26/18 20:00 Temperature 99.1 F Pulse Rate 84 80 Respiratory Rate 18 18 15 Blood Pressure 122/60 Pulse Oximetry 95 01/26/18 20:59 01/27/18 00:00 01/27/18 04:00 Temperature 97.1 F L 97.7 F Pulse Rate 84 86 Respiratory Rate 18 19 Blood Pressure 137/65 117/55 L Pulse Oximetry 95 94 L 96 01/27/18 08:00 01/27/18 11:19 01/27/18 12:00 Temperature 101.5 F H 99.1 F Pulse Rate 92 H 84 Respiratory Rate 18 18 Blood Pressure 141/63 H 143/64 H Pulse Oximetry 94 L 95 95 Intake & Output 01/26/18 01/27/18 01/27/18 18:59 06:59 18:59 Intake Total 850 / 850 500 / 500 1470 / 1470 Output Total 900 / 900 400 / 400 Balance -50 / -50 100 / 100 1470 / 1470 Weight 73.4 kg Intake: IV 250 / 250 1470 / 1470 Novastan Inj 250 MG In NS Inj 250 / 250 247.5 ML @ Per Protocol IV.CONT TITRATE PRN Rx#:[id number] Oral 600 / 600 500 / 500 Output: Urine 400 / 400 Urine Amount (Catheter) 900 / 900 Indwelling Urethral Catheter 900 / 900 Other: Date of Last Bowel Movement 01/19/18 01/23/18 01/23/18 # Bowel Movements 0 Laboratory Results - last 24 hr 01/24/18 01/27/18 01/27/18 16:20 05:21 05:21 WBC 13.4 H RBC 2.73 L Hgb 8.3 L Hct 26.0 L MCV 95.0 D MCH 30.3 MCHC 31.9 L RDW 18.1 H Plt Count 47 L MPV 8.3 Prelim Diff (Auto) Slide review pending Neut % (Auto) 70.3 H Lymph % (Auto) 14.1 [place] % (Auto) 9.7 H Eos % (Auto) 5.4 H Baso % (Auto) 0.5 Neut # (Auto) 9.4 H Lymph # (Auto) 1.9 [place] # (Auto) 1.3 H Eos # (Auto) 0.7 H Baso # (Auto) 0.1 WBC Differential . Diff Scan Auto diff confirmed Differential Comment . Platelet Estimate Low L Platelet Morphology Normal PT INR APTT Sodium 139 Potassium 4.0 Chloride 107 Carbon Dioxide 25.5 Anion Gap 7 BUN 20 H Creatinine 1.62 H Estimated GFR 43 L Random Glucose 95 Calcium 7.7 L Phosphorus 2.0 L D Total Bilirubin 0.4 AST 71 H ALT 34 Alkaline Phosphatase 64 Total Protein 5.6 L Albumin 1.9 L MTS Gel Crossmatch See Detail 01/27/18 01/27/18 05:21 05:21 WBC RBC Hgb Hct MCV MCH MCHC RDW Plt Count MPV Prelim Diff (Auto) Neut % (Auto) Lymph % (Auto) [place] % (Auto) Eos % (Auto) Baso % (Auto) Neut # (Auto) Lymph # (Auto) [place] # (Auto) Eos # (Auto) Baso # (Auto) WBC Differential Diff Scan Differential Comment Platelet Estimate Platelet Morphology PT 29.3 H D INR 2.9 APTT 53.5 H Sodium Potassium Chloride Carbon Dioxide Anion Gap BUN Creatinine Estimated GFR Random Glucose Calcium Phosphorus Total Bilirubin AST ALT Alkaline Phosphatase Total Protein Albumin MTS Gel Crossmatch Impressions Pelvic Arteriogram 01/25/18 00:00 CONCLUSION: 1. Successful deployment of bilateral 8 mm x 20 cm interlock coils within the central portions of the common iliac arteries bilaterally. 2. Procedure was done in conjunction with the surgical axillary bifemoral bypass. Neck MRA 01/26/18 00:00 CONCLUSION: 1. Limited exam because of lack of intravenous contrast. 2. Phase contrast study was performed. Correlation ultrasound would be of benefit. Stenosis of the left does not not appear to be hemodynamically significant. _ Percent stenosis is calculated using the diameter of the stenotic region over the diameter of the normal distal internal carotid artery _ Head MRI 01/26/18 10:49 CONCLUSION: 1. Encephalomalacia involving the left occipital lobe with ex vacuo dilatation of the atrium of the left lateral ventricle. 2. No acute infarct, acute hemorrhage, midline shift or extra-axial fluid collections. Head MRA 01/26/18 10:49 CONCLUSION: 1. Anatomic variant of the [place] as above. 2. Otherwise, intracranial vessels are all patent without aneurysmal disease. Cervical Spine MRI 01/26/18 10:50 CONCLUSION: 1. Small broad-based central to left paracentral focal disc bulges at C4-5 and C5-6 resulting and mild spinal stenosis and mild bilateral foraminal narrowing. Mild facet joint hypertrophy is noted bilaterally at these levels. 2. Minimal diffuse disc bulges at C3-4 and C6-7. 3. Minimal bilateral foraminal narrowing at C3-4. Chest X-Ray 01/27/18 00:00 CONCLUSION: Evidence for previous surgery in the left upper lobe with some peribronchial thickening in the left lower lobe. Right lung is clear.
[2018-01-27] MEDS: Morphine Sulfate Inj 2 MG/ML Vial IV.PUSH PRN (19:12)
[2018-01-27 22:44] LABS: Bacteria,Urine Rare /hpf; Bilirubin,Urine Negative (Negative); Clarity,Urine Clear (Clear); Color,Urine Yellow (Yellw/Straw); Glucose,Urine (UA) 50 mg/dL (Negative); Leukocyte Esterase,Urine Negative (Negative); Mucus,Urine Few /lpf (Occasional); Nitrite,Urine Negative (Negative); Specific Gravity,Urine 1.013 (1.002-1.035); Urobilinogen,Urine 4 or Greater mg/dL (Less than 2)
[2018-01-28] MEDS: Sodium Chloride 0.45 % Inj 1,000 ML IV.CONT SCH ×2 (04:07→17:21)
[2018-01-28 06:13] LABS: Baso # (Auto) 0.1 th/mm3 (0.0-0.2); Baso % (Auto) 0.5 % (0.0-2.0); Eos # (Auto) 0.9 th/mm3 (0.0-0.4); Eos % (Auto) 5.7 % (0.0-4.0); Hematocrit 25.2 % (39.0-51.0); Hemoglobin 8.3 gm/dL (13.0-17.0); Lymph # (Auto) 1.6 th/mm3 (1.0-4.8); Lymph % (Auto) 10.3 % (9.0-44.0); Mean Corpuscular Hemoglobin 29.9 pg (27.0-34.0); Mean Corpuscular Volume 90.6 fL (80.0-100.0); Mean Platelet Volume 8.3 fL (7.0-11.0); Mono # (Auto) 1.5 th/mm3 (0.0-0.9); Mono % (Auto) 9.4 % (0.0-8.0); Neut # (Auto) 11.8 th/mm3 (1.8-7.7); Neut % (Auto) 74.1 % (16.0-70.0); Platelet Count 54 th/mm3 (150-450); Red Blood Count 2.78 mil/mm3 (4.50-5.90); Red Cell Distribution Width 17.6 % (11.6-17.2); White Blood Count 15.9 th/mm3 (4.0-11.0)
[2018-01-28 06:36] LABS: Anion Gap 7 meq/L (5-15); Aspartate Aminotransferase 59 U/L (15-37); Blood Urea Nitrogen 20 mg/dL (7-18); Calcium 7.9 mg/dL (8.5-10.1); Carbon Dioxide 26.6 meq/L (21.0-32.0); Chloride 105 meq/L (98-107); Glomerular Filtration Rate 40 mL/min (>89); Glucose,Random 95 mg/dL (74-106); Sodium 139 meq/L (136-145)
[2018-01-28 06:37] LABS: Alanine Aminotransferase 32 U/L (12-78)
[2018-01-28 06:39] LABS: Alkaline Phosphatase 68 U/L (45-117); Total Protein 5.6 g/dL (6.4-8.2)
[2018-01-28 08:38] LABS: Eosinophils 5 % (0-4); Lymphocytes 13 % (9-44); Metamyelocytes 3 % (0-1); Monocytes 8 % (0-8)
[2018-01-28 08:39] LABS: Platelet Morphology Normal (Normal)
[2018-01-28] MEDS: Pregabalin 25 MG Capsule PO SCH ×2 (08:45→22:03)
[2018-01-28] MEDS: Metoprolol Tartrate 25 MG Tablet PO SCH ×2 (08:45→22:03)
[2018-01-28] MEDS: Folic Acid 1 MG Tablet PO SCH (08:46)
[2018-01-28] MEDS: Budesonide-Formoterol 160/4.5 MCG 6 GM Inhaler INH SCH ×2 (08:49→22:03)
--- NOTE | 2018-01-28 09:55 | P.PNFP ---
Subjective Interval history: Patient seen and examined this morning. Fever of 102 overnight and 100.8 this morning. Patient reports he is under blankets at that time and thinks that is why his fever was high. Denies any other new complaints. States the oxycodone 10 mg was very sedating. Denies any new pain in his leg. Try to get up and walk around a little bit yesterday. States the main pain is still in his bilateral groins of the incision site. Is also a little bit sore on his right lateral side from the surgery as well. Improving appetite, no bowel movement last few day, also poor p.o. intake. Denies any other fever or chills, chest pain, shortness of breath, no cough, abdominal pain. States his right arm dysmetria is improving as well. <Richard Kuo - 01/28/18 09:55> Results - Labs Result diagrams: 01/28/18 05:56 01/28/18 05:56 <Stephanie Calzada - 01/28/18 19:50> Abnormal lab results 01/27/18 01/28/18 01/28/18 Range/Units 21:45 05:56 05:56 WBC 15.9 H (4.0-11.0) th/mm3 RBC 2.78 L (4.50-5.90) mil/mm3 Hgb 8.3 L (13.0-17.0) gm/dL Hct 25.2 L (39.0-51.0) % RDW 17.6 H (11.6-17.2) % Plt Count 54 L (150-450) th/mm3 Neut % (Auto) 74.1 H (16.0-70.0) % Ellis % (Auto) 9.4 H (0.0-8.0) % Eos % (Auto) 5.7 H (0.0-4.0) % Neut # (Auto) 11.8 H (1.8-7.7) th/mm3 Ellis # (Auto) 1.5 H (0.0-0.9) th/mm3 Eos # (Auto) 0.9 H (0.0-0.4) th/mm3 Eosinophils % (Manual) 5 H (0-4) % Metamyelocytes % (Man) 3 H (0-1) % Abs Neuts (Manual) 11.8 H (1.8-7.7) th/mm3 Platelet Estimate Low L (Normal) PT (9.8-11.6) sec APTT (24.3-30.1) sec BUN 20 H (7-18) mg/dL Creatinine 1.72 H (0.60-1.30) mg/dL Estimated GFR 40 L (>89) mL/min Calcium 7.9 L (8.5-10.1) mg/dL AST 59 H (15-37) U/L Total Protein 5.6 L (6.4-8.2) g/dL Albumin 2.0 L (3.4-5.0) g/dL Urine Protein 30 H (Neg-Trace) mg/dL Urine Occult Blood Large H (Negative) Urine Bacteria Rare H (None) /hpf Urine Mucus Few H (Occasional) /lpf 01/28/18 Range/Units 11:46 WBC (4.0-11.0) th/mm3 RBC (4.50-5.90) mil/mm3 Hgb (13.0-17.0) gm/dL Hct (39.0-51.0) % RDW (11.6-17.2) % Plt Count (150-450) th/mm3 Neut % (Auto) (16.0-70.0) % Ellis % (Auto) (0.0-8.0) % Eos % (Auto) (0.0-4.0) % Neut # (Auto) (1.8-7.7) th/mm3 Ellis # (Auto) (0.0-0.9) th/mm3 Eos # (Auto) (0.0-0.4) th/mm3 Eosinophils % (Manual) (0-4) % Metamyelocytes % (Man) (0-1) % Abs Neuts (Manual) (1.8-7.7) th/mm3 Platelet Estimate (Normal) PT 34.8 H (9.8-11.6) sec APTT 59.8 H (24.3-30.1) sec BUN (7-18) mg/dL Creatinine (0.60-1.30) mg/dL Estimated GFR (>89) mL/min Calcium (8.5-10.1) mg/dL AST (15-37) U/L Total Protein (6.4-8.2) g/dL Albumin (3.4-5.0) g/dL Urine Protein (Neg-Trace) mg/dL Urine Occult Blood (Negative) Urine Bacteria (None) /hpf Urine Mucus (Occasional) /lpf Short CBC 01/28/18 Range/Units 05:56 WBC 15.9 H (4.0-11.0) th/mm3 Hgb 8.3 L (13.0-17.0) gm/dL Hct 25.2 L (39.0-51.0) % Plt Count 54 L (150-450) th/mm3 BMP 01/28/18 05:56 Sodium 139 Potassium 4.0 Chloride 105 Carbon Dioxide 26.6 BUN 20 H Creatinine 1.72 H Calcium 7.9 L Liver Function 01/28/18 Range/Units 05:56 Total Bilirubin 0.6 (0.2-1.0) mg/dL AST 59 H (15-37) U/L ALT 32 (12-78) U/L Alkaline Phosphatase 68 (45-117) U/L Albumin 2.0 L (3.4-5.0) g/dL Urine 01/27/18 Range/Units 21:45 Urine Color Yellow (Yellw/Straw) Urine Clarity Clear (Clear) Urine pH 6.0 (5.0-8.5) Ur Specific [place] 1.013 (1.002-1.035) Urine Protein 30 H (Neg-Trace) mg/dL Urine Glucose (UA) 50 (Negative) mg/dL <Stephanie Calzada - 01/28/18 19:50> Abnormal lab results 01/27/18 01/28/18 01/28/18 Range/Units 21:45 05:56 05:56 WBC 15.9 H (4.0-11.0) th/mm3 RBC 2.78 L (4.50-5.90) mil/mm3 Hgb 8.3 L (13.0-17.0) gm/dL Hct 25.2 L (39.0-51.0) % RDW 17.6 H (11.6-17.2) % Plt Count 54 L (150-450) th/mm3 Neut % (Auto) 74.1 H (16.0-70.0) % Ellis % (Auto) 9.4 H (0.0-8.0) % Eos % (Auto) 5.7 H (0.0-4.0) % Neut # (Auto) 11.8 H (1.8-7.7) th/mm3 Ellis # (Auto) 1.5 H (0.0-0.9) th/mm3 Eos # (Auto) 0.9 H (0.0-0.4) th/mm3 Eosinophils % (Manual) 5 H (0-4) % Metamyelocytes % (Man) 3 H (0-1) % Abs Neuts (Manual) 11.8 H (1.8-7.7) th/mm3 Platelet Estimate Low L (Normal) BUN 20 H (7-18) mg/dL Creatinine 1.72 H (0.60-1.30) mg/dL Estimated GFR 40 L (>89) mL/min Calcium 7.9 L (8.5-10.1) mg/dL AST 59 H (15-37) U/L Total Protein 5.6 L (6.4-8.2) g/dL Albumin 2.0 L (3.4-5.0) g/dL Urine Protein 30 H (Neg-Trace) mg/dL Urine Occult Blood Large H (Negative) Urine Bacteria Rare H (None) /hpf Urine Mucus Few H (Occasional) /lpf Short CBC 01/28/18 Range/Units 05:56 WBC 15.9 H (4.0-11.0) th/mm3 Hgb 8.3 L (13.0-17.0) gm/dL Hct 25.2 L (39.0-51.0) % Plt Count 54 L (150-450) th/mm3 BMP 01/28/18 05:56 Sodium 139 Potassium 4.0 Chloride 105 Carbon Dioxide 26.6 BUN 20 H Creatinine 1.72 H Calcium 7.9 L Liver Function 01/28/18 Range/Units 05:56 Total Bilirubin 0.6 (0.2-1.0) mg/dL AST 59 H (15-37) U/L ALT 32 (12-78) U/L Alkaline Phosphatase 68 (45-117) U/L Albumin 2.0 L (3.4-5.0) g/dL Urine 01/27/18 Range/Units 21:45 Urine Color Yellow (Yellw/Straw) Urine Clarity Clear (Clear) Urine pH 6.0 (5.0-8.5) Ur Specific [place] 1.013 (1.002-1.035) Urine Protein 30 H (Neg-Trace) mg/dL Urine Glucose (UA) 50 (Negative) mg/dL <Richard Kuo - 01/28/18 09:55> - Imaging Impressions Chest X-Ray 01/27/18 00:00 CONCLUSION: Evidence for previous surgery in the left upper lobe with some peribronchial thickening in the left lower lobe. Right lung is clear. <Richard Kuo - 01/28/18 09:55> Physical Exam Vital signs: Vital Signs 01/27/18 20:00 01/28/18 00:00 01/28/18 04:00 Temperature 102.0 F H 100.8 F H 98.8 F Pulse Rate 94 H 75 Respiratory Rate 20 20 Blood Pressure 129/62 110/76 Pulse Oximetry 94 L 96 01/28/18 08:00 01/28/18 12:00 01/28/18 16:00 Temperature 98.6 F 99.0 F 99.8 F H Pulse Rate 78 77 88 Respiratory Rate 18 18 19 Blood Pressure 133/61 113/61 133/62 Pulse Oximetry 96 98 99 Intake & Output 01/28/18 01/28/18 01/29/18 06:59 18:59 06:59 Intake Total 1000 / 1000 1000 / 1000 Output Total 900 / 900 Balance 100 / 100 1000 / 1000 Intake: IV 1000 / 1000 1000 / 1000 1/2 Normal Saline Inj 1,000 ML 1000 / 1000 1000 / 1000 @ 70 mls/hr IV.CONT .[id number] [facility] Rx#:[id number] Output: Urine 900 / 900 Other: # Voids 3 Date of Last Bowel Movement 01/23/18 01/28/18 # Bowel Movements 0 <Stephanie Calzada - 01/28/18 19:50> Vital Signs 01/27/18 11:19 01/27/18 12:00 01/27/18 16:00 Temperature 99.1 F 97.9 F Pulse Rate 84 86 Respiratory Rate 18 16 Blood Pressure 143/64 H 134/62 Pulse Oximetry 95 95 95 01/27/18 20:00 01/28/18 00:00 01/28/18 04:00 Temperature 102.0 F H 100.8 F H 98.8 F Pulse Rate 94 H 75 Respiratory Rate 20 20 Blood Pressure 129/62 110/76 Pulse Oximetry 94 L 96 01/28/18 08:00 Temperature 98.6 F Pulse Rate 78 Respiratory Rate 18 Blood Pressure 133/61 Pulse Oximetry 96 Intake & Output 01/27/18 01/28/18 01/28/18 18:59 06:59 18:59 Intake Total 2920 / 2920 1000 / 1000 Output Total 1000 / 1000 900 / 900 Balance 1920 / 1920 100 / 100 Intake: IV 1720 / 1720 1000 / 1000 Novastan Inj 250 MG In NS Inj 250 / 250 247.5 ML @ Per Protocol IV.CONT TITRATE PRN Rx#:[id number] 1/2 Normal Saline Inj 1,000 ML 1000 / 1000 @ 70 mls/hr IV.CONT .[id number] [facility] Rx#:[id number] Oral 1200 / 1200 Output: Urine 1000 / 1000 900 / 900 Other: # Voids 2 Date of Last Bowel Movement 01/23/18 01/23/18 <Richard Kuo - 01/28/18 09:55> Narrative: Skin: New ecchymotic region left anterior lower [place], Nontender, no palpable cord or warmth. remainder of skin without new findings, stable 0.5 CM shallow skin abrasion over coccygeal region, pt positioned to alleviate pressure. 2D Echo 01/18/18 EF 50-55%, with mild hypokinesis, LV dilation, tr-mild MR, mild to mod TR. <Stephanie Calzada - 01/28/18 19:50> GENERAL: Sitting up in chair, NAD SKIN: Warm and dry. Incisions dry with no drainage. Mildly tender to palpation. CARDIOVASCULAR: Regular rate and rhythm. 2/6 systolic ejection murmur present RESPIRATORY: No accessory muscle use. Clear to auscultation. Breath sounds equal bilaterally with decreased breath sounds in bases bilaterally. No wheezes , crackles, rales. GASTROINTESTINAL: Abdomen soft, non-tender, nondistended. Right lateral side tender to palpation. MUSCULOSKELETAL: Extremities warm to touch. No cyanosis. Pedal edema bilaterally L>R NEUROLOGICAL: Awake and alert. Normal speech. CN II-XII grossly intact. Bilateral UE with normal strength and sensation. Pulses intact. RUE with improving dysmetria when trying to reach for objects at a distance. Left leg with decreased dorsiflexion strength, stable. Improving sensation of LLE PSYCHIATRIC: Appropriate mood and affect; insight and judgment normal. <DorianRichard fernando - 01/28/18 09:55> - Urinary Catheter Management Indwelling Urethral Catheter Cath placed during this visit: no <Stephanie Calzada - 01/28/18 19:50> yes, but has since been removed by the nurse <Richard Kuo - 01/28/18 09:55> Reason for continuing: Decision to DC catheter <Richard Kuo - 01/28/18 09 :55> Insertion date: 01/25/18 <Richard Kuo - 01/28/18 09:55> Insertion time: 12:59 <Richard Kuo - 01/28/18 09:55> Removal date: 01/26/18 <Richard Kuo 01/28/18 09:55> Removal time: 17:00 <Richard Kuo - 01/28/18 09:55> Assessment and Plan - Assessment (1) SIRS (systemic inflammatory response syndrome) Code(s): R65.10 - Systemic inflammatory response syndrome (SIRS) of non- infectious origin without acute organ dysfunction Status: Acute (2) Pain in both lower legs Code(s): M79.661 - Pain in right lower leg; M79.662 - Pain in left lower leg Status: Acute (3) Heparin induced thrombocytopenia Code(s): D75.82 - Heparin induced thrombocytopenia (HIT) Status: Acute (4) Dysmetria Code(s): R27.8 - Other lack of coordination Status: Acute (5) Hypertension Code(s): I10 - Essential (primary) hypertension Status: Acute (6) EVON (acute kidney injury) Code(s): N17.9 - Acute kidney failure, unspecified Status: Acute (7) Metastatic primary lung cancer Code(s): C34.90 - Malignant neoplasm of unspecified part of unspecified bronchus or lung Status: Acute (8) Thrombosis of right saphenous vein Code(s): I82.811 - Embolism and thrombosis of superficial veins of right lower extremity Status: Acute (9) Anemia Code(s): D64.9 - Anemia, unspecified Status: Acute (10) Avascular necrosis of hip Code(s): M87.059 - Idiopathic aseptic necrosis of unspecified femur Status: Acute (11) Atrial fibrillation Code(s): I48.91 - Unspecified atrial fibrillation Status: Acute (12) Nutrition, metabolism, and development symptoms Code(s): R63.8 - Other symptoms and signs concerning food and fluid intake Status: Acute <Stephanie Calzada - 01/28/18 19:50> (1) SIRS (systemic inflammatory response syndrome) Code(s): R65.10 - Systemic inflammatory response syndrome (SIRS) of non- infectious origin without acute organ dysfunction Status: Acute Plan: Fevers off and on last few days No obvious source of infection, however inflammatory response could be related to malignancy vs thrombosis vs septic thrombophlebitis Chest x-ray (01/20): Stable from admission CXR (01/27): Stable, no acute process Urinalysis (01/20): Negative leukocyte esterase and nitrite, large occult blood, 100 protein, rare bacteria; otherwise negative UA (01/27): 2 RBC, but no sign of infection Blood cultures 01/21/18: NGTD Rpt blood cultures 01/26: pending Antibiotic history: -Vancomycin () -Cefepime 2g 24H () -Monitor vitals, if new symptoms need to workup further and may need antibiotics -Tylenol PRN fevers -Continue incentive spirometry -Physical therapy, OOB (2) Pain in both lower legs Code(s): M79.661 - Pain in right lower leg; M79.662 - Pain in left lower leg Status: Acute Plan: Patient presented after worsening pain and weakness in bilateral legs. Upon further discussion with patient, has signs and symptoms of peripheral arterial disease. Also with associated neuropathy and weakness upon admission. 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 -Ordered Decadron 10mg IV once, which did help with the pain -EMG shows demyelinating sensory motor polyneuropathy -Vascular [id number] recs -Pt has changes of decrease blood flow in feet. Throwing embolic material distally -Post-op 01/25/18 from axillobifemoral bypass along with coiling proximal ilial flow -Tolerated procedure well. Feet warm and normal cap refill -Heme/onc consulted -Treating HIT with argatroban -PT evaluating -recommend home health -Pain management -Oxycodone 5mg q8H pain 1-10 -Morphine 1mg breakthrough pain (3) Heparin induced thrombocytopenia Code(s): D75.82 - Heparin induced thrombocytopenia (HIT) Status: Acute Plan: Postop from lobectomy and s/p heparin 9 days on admission Heparin-induced thrombocytopenia antibody positive Platelets improving today No transfusion recommended at this time due to possibility of further coagulation Hold all heparin forms Decreased lyrica to 50mg due to side effect of thrombocytopenia Heme/onc consulted-HIT with thrombosis -On argatroban gtt -Once platelets>100, will then transition to Eliquis (4) Dysmetria Code(s): R27.8 - Other lack of coordination Status: Acute Plan: Pt developed right upper extremity dysmetria after surgery. Has difficulty reaching object with his right hand when he goes to shake hands or reach for something. Sensation and pulses intact. MRI and MRA head without any acute change Improving neuro function -Continue PT -Monitor symptoms (5) Hypertension Code(s): I10 - Essential (primary) hypertension Status: Acute Plan: Pt with BP up to 170s/70s post-op. Started on clonidine and nitro patch initially, d/c post-op -Monitor vitals -Decrease metoprolol to 12.5mg BID due to downtrending BPs -Clonidine PO PRN SBP>180 (6) EVON (acute kidney injury) Code(s): N17.9 - Acute kidney failure, unspecified Status: Acute Plan: Increasing serum creatinine during hospitalization. Admitted with Cr of 1.2. CMP from 06/28/17 with Cr of 0.95 Aortic CTA shows infarct of inferior pole of right kidney of unknown age. Cr rising -Monitor I/Os, urine output -Monitor BMP -Avoid nephrotoxic agents -Avoid further contrast studies if able -Renal consulted -Suspect contrast nephrotoxicity -Serum complements wnl; urine eosinophils negative -Restarted 1/2NS @ 70mls/hr (7) Metastatic primary lung cancer Code(s): C34.90 - Malignant neoplasm of unspecified part of unspecified bronchus or lung Status: Acute Plan: Status post chemo in November, status post lobectomy Recent PET scans negative MRI spine shows possible mets Repeat brain MRI with no acute change -Management per oncology team; discussing case with patients Oncologist in [place] , Dr. Dillard -Regarding possible drop mets -Unsure of etiology at this time -Radiation oncology consulted -No therapy at this time due to low platelets (8) Thrombosis of right saphenous vein Code(s): I82.811 - Embolism and thrombosis of superficial veins of right lower extremity Status: Acute Plan: Lower extremity superficial vein, generally benign and self-limited however a larger vein is involved in this case Caution with propagation into the DVT system and PE possibility Likely due to abnormal coagulation at this time Elevation Pain management (9) Anemia Code(s): D64.9 - Anemia, unspecified Status: Acute Plan: No history of anemia per patient Likely chronic anemia, patient at high risk for bleeding due to thrombocytopenia Unsure of the exact cause, chemotherapy vs recent surgery vs chronic anemia (10) Avascular necrosis of hip Code(s): M87.059 - Idiopathic aseptic necrosis of unspecified femur Status: Acute Plan: MRI of sacrum revealed findings of avascular necrosis involving the right femoral head. No collapse. Pt reports chronic hip pain, nothing acute Unsure etiology Did receive IV steroids on 01/23 -Will hold further steroids at this time -Continue to monitor (11) Atrial fibrillation Code(s): I48.91 - Unspecified atrial fibrillation Status: Acute Plan: History of Afib. Controlled rate. Was diagnosed after previous surgery. 2/6 YANA murmur on exam, TR and MR seen on Echo Echo shows EF of 50-55% Segmental wall motion abnormalities with hypokinesis No episodes of Afib during admission, Telemety D/c Continue metoprolol (12) Nutrition, metabolism, and development symptoms Code(s): R63.8 - Other symptoms and signs concerning food and fluid intake Status: Acute Plan: Fluids: 1/2NS @ 70mls/hr Electrolytes: Follow-up BMP and replete as needed Nutrition: Regular diet DVT prophylaxis: Holding all heparin products, argatroban gtt Incentive spirometry <Richard Kuo - 01/28/18 09:37> - Assessment and Plan 62 y/o male with history of lung cancer with mets to brain, hypertension, atrial fibrillation presented on admission with bilateral leg pain/weakness. Admitted for workup. 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 Currently on argatroban gtt, awaiting improvement of platelets. Post-op from axillofemoral bypass with coiling. Pain and blood flow improved. Awaiting improvement of platelets for transition to oral anticoagulant. <Richard Kuo - 01/28/18 09:55> Discharge Planning: Pending improvement of platelets and workup of leg pain. PT recommends home health upon discharge Advanced Directives discussed with pt on 01/22. Paperwork completed. Pt's is Health care surrogate. Confirmed full code status. <Richard Kuo - 01/28/18 09:55> - Attending Attestation The exam, history, and the medical decision-making described in the above note were completed with the assistance of the resident physician. I reviewed and agree with the findings presented. I attest that I had a [id number] encounter with the patient on the same day, and personally performed and documented my assessment and findings in the medical record. <Stephanie Calzada - 01/28/18 19:50> <Richard Kuo - Last Filed: 01/28/18 09:37> (9) Anemia Qualifiers: Anemia type: bone marrow failure Bone marrow failure anemia type: pancytopenia, antineoplastic chemotherapy-induced Qualified Code(s): D61.810 - Antineoplastic chemotherapy induced pancytopenia; T45.1X5A - Adverse effect of antineoplastic and immunosuppressive drugs, initial encounter (10) Avascular necrosis of hip Qualifiers: Laterality: right Qualified Code(s): M87.051 - Idiopathic aseptic necrosis of right femur <ZhengStephanie gray - Last Filed: 01/28/18 19:50> (9) Anemia Qualifiers: Qualified Code(s): D61.810 - Antineoplastic chemotherapy induced pancytopenia ; T45.1X5A - Adverse effect of antineoplastic and immunosuppressive drugs, initial encounter (10) Avascular necrosis of hip Qualifiers: Qualified Code(s): M87.051 - Idiopathic aseptic necrosis of right femur <Richard Kuo - Last Filed: 01/28/18 09:37> (9) Anemia Qualifiers: Anemia type: bone marrow failure Bone marrow failure anemia type: pancytopenia, antineoplastic chemotherapy-induced Qualified Code(s): D61.810 - Antineoplastic chemotherapy induced pancytopenia; T45.1X5A - Adverse effect of antineoplastic and immunosuppressive drugs, initial encounter (10) Avascular necrosis of hip Qualifiers: Laterality: right Qualified Code(s): M87.051 - Idiopathic aseptic necrosis of right femur <ZhengOscar grayt - Last Filed: 01/28/18 19:50> (9) Anemia Qualifiers: Qualified Code(s): D61.810 - Antineoplastic chemotherapy induced pancytopenia ; T45.1X5A - Adverse effect of antineoplastic and immunosuppressive drugs, initial encounter (10) Avascular necrosis of hip Qualifiers: Qualified Code(s): M87.051 - Idiopathic aseptic necrosis of right femur
--- NOTE | 2018-01-28 10:06 | P.PNONC ---
Subjective Interval history: T-max 100.8 overnight Blood cultures drawn yesterday pending. UA drawn yesterday; culture not indicated States he has some very mild pain to his left lateral foot and [place] Enjoyed a birthday celebration yesterday in his hospital room Still hoping to take a shower today No bleeding Objective Vital Signs/Intake & Output: Vital Signs 01/27/18 11:19 01/27/18 12:00 01/27/18 16:00 Temperature 99.1 F 97.9 F Pulse Rate 84 86 Respiratory Rate 18 16 Blood Pressure 143/64 H 134/62 Pulse Oximetry 95 95 95 01/27/18 20:00 01/28/18 00:00 01/28/18 04:00 Temperature 102.0 F H 100.8 F H 98.8 F Pulse Rate 94 H 75 Respiratory Rate 20 20 Blood Pressure 129/62 110/76 Pulse Oximetry 94 L 96 01/28/18 08:00 Temperature 98.6 F Pulse Rate 78 Respiratory Rate 18 Blood Pressure 133/61 Pulse Oximetry 96 Intake & Output 01/27/18 01/28/18 01/28/18 18:59 06:59 18:59 Intake Total 2920 / 2920 1000 / 1000 Output Total 1000 / 1000 900 / 900 Balance 1920 / 1920 100 / 100 Intake: IV 1720 / 1720 1000 / 1000 Novastan Inj 250 MG In NS Inj 250 / 250 247.5 ML @ Per Protocol IV.CONT TITRATE PRN Rx#:[id number] 1/2 Normal Saline Inj 1,000 ML 1000 / 1000 @ 70 mls/hr IV.CONT .[id number] [facility] Rx#:[id number] Oral 1200 / 1200 Output: Urine 1000 / 1000 900 / 900 Other: # Voids 2 Date of Last Bowel Movement 01/23/18 01/23/18 Result Diagrams: 01/28/18 05:56 01/28/18 05:56 Laboratory Results: Laboratory Results - last 24 hr 01/27/18 01/28/18 01/28/18 21:45 05:56 05:56 WBC 15.9 H RBC 2.78 L Hgb 8.3 L Hct 25.2 L MCV 90.6 D MCH 29.9 MCHC 33.0 RDW 17.6 H Plt Count 54 L MPV 8.3 Prelim Diff (Auto) Slide review pending Neut % (Auto) 74.1 H Lymph % (Auto) 10.3 [place] % (Auto) 9.4 H Eos % (Auto) 5.7 H Baso % (Auto) 0.5 Neut # (Auto) 11.8 H Lymph # (Auto) 1.6 [place] # (Auto) 1.5 H Eos # (Auto) 0.9 H Baso # (Auto) 0.1 WBC Differential Manual diff final Seg Neuts % (Manual) 69 Band Neuts % (Manual) 2 Lymphocytes % (Manual) 13 Monocytes % (Manual) 8 Eosinophils % (Manual) 5 H Metamyelocytes % (Man) 3 H Abs Neuts (Manual) 11.8 H Differential Comment . Platelet Estimate Low L Platelet Morphology Normal Sodium 139 Potassium 4.0 Chloride 105 Carbon Dioxide 26.6 Anion Gap 7 BUN 20 H Creatinine 1.72 H Estimated GFR 40 L Random Glucose 95 Calcium 7.9 L Total Bilirubin 0.6 AST 59 H ALT 32 Alkaline Phosphatase 68 Total Protein 5.6 L Albumin 2.0 L Urine Color Yellow Urine Clarity Clear Urine pH 6.0 Ur Specific [place] 1.013 Urine Protein 30 H Urine Glucose (UA) 50 Urine Ketones Negative Urine Occult Blood Large H Urine Nitrate Negative Urine Bilirubin Negative Urine Urobilinogen 4 or greater Ur Leukocyte Esterase Negative Urine RBC 2 Urine WBC 2 Urine Bacteria Rare H Urine Mucus Few H Micro UA Comment Culture not ind Ur Microscopic Review Not Reportable Urine Culture Comments Culture not ind Culture Results: Microbiology 01/21/18 10:25 Aerobic Blood Culture - Final Blood - Peripheral No growth in 5 days Anaerobic Blood Culture - Final No growth in 5 days 01/21/18 10:14 Aerobic Blood Culture - Final Blood - Peripheral No growth in 5 days Anaerobic Blood Culture - Final No growth in 5 days Imaging Studies: Impressions Chest X-Ray 01/27/18 00:00 CONCLUSION: Evidence for previous surgery in the left upper lobe with some peribronchial thickening in the left lower lobe. Right lung is clear. Medications: Active Medications Generic Name Dose Route Start Last Admin Trade Name Freq PRN Reason Stop Dose Admin Acetaminophen 650 mg 01/27/18 08:52 01/27/18 21:41 Tylenol PO 650 mg Q4H PRN Administration Temp > 100.4 Al Hydroxide/Mg Hydroxide 30 ml 01/17/18 14:19 01/23/18 20:34 Milk Of Magnesia Liq PO 30 ml Q12H PRN Administration Mild Constipation Budesonide/Formoterol Fumarate 2 puff 01/17/18 14:00 01/28/18 08:49 Symbicort 160/4.5 Mcg Inh INH 2 puff BID SHAVONNE Administration Folic Acid 1 mg 01/17/18 13:45 01/28/18 08:46 Folic Acid PO 1 mg DAILY SHAVONNE Administration Argatroban 250 mg/ Sodium 250 mls @ 0 mls/hr 01/18/18 15:00 01/27/18 18:45 Chloride IV.CONT Infused TITRATE PRN Titration Per Protocol Protocol Per Protocol Sodium Chloride 1,000 mls @ 70 mls/hr 01/27/18 11:45 01/28/18 04:07 1/2 Normal Saline Inj IV.CONT 70 mls/hr .[id number] SHAVONNE Administration Metoprolol Tartrate 12.5 mg 01/28/18 09:00 01/28/18 08:45 Lopressor PO 12.5 mg BID SHAVONNE Administration Morphine Sulfate 1 mg 01/26/18 10:08 01/27/18 19:12 Morphine Inj IV.PUSH 1 mg Q6HR PRN Administration PAIN 6-10;IF UNABLE TO TAKE PO Pantoprazole Sodium 40 mg 01/17/18 14:00 01/28/18 08:46 Protonix PO 40 mg DAILY SHAVONNE Administration Pregabalin 50 mg 01/27/18 11:30 01/28/18 08:45 Lyrica PO 50 mg BID SHAVONNE Administration Sennosides 17.2 mg 01/17/18 14:08 01/21/18 22:30 Senokot PO 17.2 mg Q12H PRN Administration Moderate Constipation Sodium Chloride 2 ml 01/17/18 11:17 01/20/18 20:43 Ns Flush IV.FLUSH 2 ml PRN PRN Administration FLUSH AFTER USING IV ACCESS Temazepam 15 mg 01/17/18 21:00 01/26/18 21:46 Restoril PO 15 mg HS PRN Administration INSOMNIA Objective Remarks: GENERAL: Middle-aged male patient resting in bed in no obvious distress SKIN: Warm and dry. Bilateral groin dressings dry and intact. Petechiae to left ankle HEAD: Normocephalic. EYES: No scleral icterus. No injection or drainage. NECK: Supple, trachea midline. CARDIOVASCULAR: +S1/S2 without murmurs. RESPIRATORY: Anterior breath sounds clear, non-labored. GASTROINTESTINAL: Abdomen soft, non-tender, nondistended. EXTREMITIES: 1+ edema to left lower extremity. Feet warm to touch. MUSCULOSKELETAL: Adequate muscle tone. NEUROLOGICAL: No obvious focal deficit. Awake, alert, and oriented x3. 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 Bernstein is a pleasant 62-year-old gentleman with a history of non-small cell lung cancer with brain metastasis, status post craniotomy with resection followed by stereotactic radiosurgery with gamma knife, 3-4 cycles of preop Immunochemotherapy with 2 doses of Platinol and Alimta he also underwent thoracotomy and resection of the left upper lobe and wedge resection of the left lower lobe on 01/01/2018. Patient had minimal residual disease of 0.6 cm and also the lymph nodes were negative. Margins were also negative. During this admission the patient was found to have severe thrombocytopenia. Patient did have recent exposure to subcutaneous heparin after his recent surgery. Plan: 1. Once platelets are greater than 100,000 we can bridge argatroban to oral anticoagulant. 2. Monitor pain to left foot/[place]. 3. Platelet count noted to be mildly improved today. Coags remain pending. 4. Continue to monitor results of blood cultures. Monitor for fever. Monitor for bleeding. - Attending Statement The exam, history, and the medical decision-making described in the above note were completed with the assistance of the mid-level provider. I reviewed and agree with the findings presented. I attest that I had a [id number] encounter with the patient on the same day, and personally performed and documented my assessment and findings in the medical record. Complaining of her groin pain most likely due to the surgery The right upper extremity weakness has improved and he thinks that it is back to normal Platelets are slowly coming up Continue argatroban drip Discussed with patient and at bedside Monitor CBC Fever most likely postoperative
--- NOTE | 2018-01-28 10:09 | P.PNADD ---
Addendum to Inpatient Note Reason for Addendum: Additional Documentation Additional information: Off-Service Note/Transfer of Care 63-year-old male with history of lung cancer with metastasis to the brain presented to the ER on 01/17/18 with severe pain in his bilateral extremities as well as numbness and weakness. Patient was admitted for workup. Had some signs and symptoms of peripheral arterial disease, and aorta CTA was done which showed severe atherosclerotic disease with severe narrowing of distal aorta as well as mural thrombus of the distal aorta. Patient also had spinal MRIs done; thoracic MRI showed possible drop metastases. Neurology was consulted who recommended a lumbar puncture be performed to rule out carcinomatous meningitis , however could not be performed due to thrombocytopenia. Neurosurgery and radiation oncology were consulted as well. They advised no current treatment for possible metastases in his spine at this time. Vascular was consulted due to signs of significant vascular disease and signs of claudication. Patient went for procedure on 01/25/18 for axillobifemoral bypass along with coiling of proximal iliac flow with interventional radiology. Patient tolerated the procedure well and his pain greatly improved as well as his extremities improved with warmth and improved cap refill. Patient developed dysmetria of right upper extremity after procedure, but is improving. MRI/MRA were negative for acute process. Upon admission, patient also was found to have platelets of 15. Patient had received heparin postop lobectomy several weeks prior to admission. Hematology/ oncology was consulted and was eventually diagnosed with heparin-induced thrombocytopenia. Patient was started on argatroban drip. Platelets improved, then decreased after surgery. Now trending back up again. Awaiting platelets of 100 to then transition to oral anticoagulation. Several days after admission, patient developed fevers. Infectious workup was negative. Patient was started on vancomycin and cefepime for 5 days. The fevers resolved, but then started up again. Repeat infectious workup has been negative. Fevers are being monitored closely with no signs and symptoms. Concern for postop infection versus malignancy versus thrombosis. Patient also with an acute kidney injury during this hospitalization, may been caused due to contrast early on in hospitalization. Nephrology is consulted and managing fluid status. Patient's leg symptoms have improved greatly after vascular surgery. Now awaiting improvement of platelets for transition to oral anticoagulant. Physical therapy working with patient and will likely need home health versus rehab upon discharge.
--- NOTE | 2018-01-28 10:52 | P.PNNEU ---
Subjective Subjective Comments: no cp, no dyspnea, no lugo, no focal weakness, no vision loss. Arm strength much improved legs feeling strong Active Medications: Active Medications Acetaminophen (Tylenol) 650 mg PO Q4H PRN PRN Reason: Temp > 100.4 Last Admin: 01/27/18 21:41 Dose: 650 mg Al Hydroxide/Mg Hydroxide (Milk Of Magnesia Liq) 30 ml PO Q12H PRN PRN Reason: Mild Constipation Last Admin: 01/23/18 20:34 Dose: 30 ml Bisacodyl (Dulcolax Supp) 10 mg RECTAL DAILY PRN PRN Reason: SEVERE CONSITIPATION Budesonide/Formoterol Fumarate (Symbicort 160/4.5 Mcg Inh) 2 puff INH BID [facility] Last Admin: 01/28/18 08:49 Dose: 2 puff Clonidine HCl (Catapres) 0.1 mg PO Q6H PRN PRN Reason: SEE LABEL COMMENTS Folic Acid (Folic Acid) 1 mg PO DAILY [facility] Last Admin: 01/28/18 08:46 Dose: 1 mg Argatroban 250 mg/ Sodium (Chloride) 250 mls @ 0 mls/hr IV.CONT TITRATE PRN; Protocol PRN Reason: Per Protocol Last Titration: 01/27/18 18:45 Dose: Infused Sodium Chloride (1/2 Normal Saline Inj) 1,000 mls @ 70 mls/hr IV.CONT .[id number] [facility] Last Admin: 01/28/18 04:07 Dose: 70 mls/hr Lactulose (Lactulose Liq) 30 ml PO DAILY PRN PRN Reason: SEVERE CONSITIPATION Metoprolol Tartrate (Lopressor) 12.5 mg PO BID [facility] Last Admin: 01/28/18 08:45 Dose: 12.5 mg Miscellaneous (Pill Splitter) 1 each OTHER UNSCH PRN PRN Reason: SEE LABEL COMMENTS Morphine Sulfate (Morphine Inj) 1 mg IV.PUSH Q6HR PRN PRN Reason: PAIN 6-10;IF UNABLE TO TAKE PO Last Admin: 01/27/18 19:12 Dose: 1 mg Naloxone HCl (Narcan Inj) 0.4 mg IV.PUSH UNSCH PRN PRN Reason: SEE LABEL COMMENTS Oxycodone HCl (Roxicodone) 5 mg PO Q8H PRN PRN Reason: PAIN SCALE 1 TO 10 Pantoprazole Sodium (Protonix) 40 mg PO DAILY [facility] Last Admin: 01/28/18 08:46 Dose: 40 mg Pregabalin (Lyrica) 50 mg PO BID [facility] Last Admin: 01/28/18 08:45 Dose: 50 mg Sennosides (Senokot) 17.2 mg PO Q12H PRN PRN Reason: Moderate Constipation Last Admin: 01/21/18 22:30 Dose: 17.2 mg Sodium Chloride (Ns Flush) 2 ml IV.FLUSH PRN PRN PRN Reason: FLUSH AFTER USING IV ACCESS Last Admin: 01/20/18 20:43 Dose: 2 ml Temazepam (Restoril) 15 mg PO HS PRN PRN Reason: INSOMNIA Last Admin: 01/26/18 21:46 Dose: 15 mg Allergies/Adverse Reactions: Allergies Allergy/AdvReac Type Severity Reaction Status Date / Time No Known Allergies Allergy Unverified 01/17/18 11:06 Review of Systems All other systems reviewed negative except as stated in HPI Physical Exam Vital signs: Vital Signs 01/27/18 11:19 01/27/18 12:00 01/27/18 16:00 Temperature 99.1 F 97.9 F Pulse Rate 84 86 Respiratory Rate 18 16 Blood Pressure 143/64 H 134/62 Pulse Oximetry 95 95 95 01/27/18 20:00 01/28/18 00:00 01/28/18 04:00 Temperature 102.0 F H 100.8 F H 98.8 F Pulse Rate 94 H 75 Respiratory Rate 20 20 Blood Pressure 129/62 110/76 Pulse Oximetry 94 L 96 01/28/18 08:00 Temperature 98.6 F Pulse Rate 78 Respiratory Rate 18 Blood Pressure 133/61 Pulse Oximetry 96 Intake & Output 01/27/18 01/28/18 01/28/18 18:59 06:59 18:59 Intake Total 2920 / 2920 1000 / 1000 Output Total 1000 / 1000 900 / 900 Balance 1920 / 1920 100 / 100 Intake: IV 1720 / 1720 1000 / 1000 Novastan Inj 250 MG In NS Inj 250 / 250 247.5 ML @ Per Protocol IV.CONT TITRATE PRN Rx#:[id number] 1/2 Normal Saline Inj 1,000 ML 1000 / 1000 @ 70 mls/hr IV.CONT .[id number] [facility] Rx#:[id number] Oral 1200 / 1200 Output: Urine 1000 / 1000 900 / 900 Other: # Voids 2 Date of Last Bowel Movement 01/23/18 01/23/18 Narrative: GENERAL: Sitting up in chair, NAD SKIN: Warm and dry. Incisions dry with no drainage. Mildly tender to palpation. CARDIOVASCULAR: Regular rate and rhythm. 2/6 systolic ejection murmur present RESPIRATORY: No accessory muscle use. Clear to auscultation. Breath sounds equal bilaterally with decreased breath sounds in bases bilaterally. No wheezes , crackles, rales. GASTROINTESTINAL: Abdomen soft, non-tender, nondistended. Right lateral side tender to palpation. MUSCULOSKELETAL: Extremities warm to touch. No cyanosis. Pedal edema bilaterally L>R NEUROLOGICAL: NEUROLOGICAL: Awake alert oriented 3 no aphasia, no facial asymmetry tongue midline, able raise both upper extremities above shoulder level good chief librarian branch strength bilaterally. Radial pulse improved on the right, mild left foot dorsiflexion weakness unable to raise both lower extremities gravity and warm; PSYCHIATRIC: Appropriate mood and affect; insight and judgment normal. - Constitutional no acute distress - Routine HEENT Exam Head: Present: normocephalic Eye: Present: EOMI - Urinary Catheter Management Indwelling Urethral Catheter Cath placed during this visit: yes, but has since been removed by the nurse Reason for continuing: Decision to DC catheter Insertion date: 01/25/18 Insertion time: 12:59 Removal date: 01/26/18 Removal time: 17:00 Objective Laboratory Results - last 24 hr 01/27/18 01/28/18 01/28/18 21:45 05:56 05:56 WBC 15.9 H RBC 2.78 L Hgb 8.3 L Hct 25.2 L MCV 90.6 D MCH 29.9 MCHC 33.0 RDW 17.6 H Plt Count 54 L MPV 8.3 Prelim Diff (Auto) Slide review pending Neut % (Auto) 74.1 H Lymph % (Auto) 10.3 [place] % (Auto) 9.4 H Eos % (Auto) 5.7 H Baso % (Auto) 0.5 Neut # (Auto) 11.8 H Lymph # (Auto) 1.6 [place] # (Auto) 1.5 H Eos # (Auto) 0.9 H Baso # (Auto) 0.1 WBC Differential Manual diff final Seg Neuts % (Manual) 69 Band Neuts % (Manual) 2 Lymphocytes % (Manual) 13 Monocytes % (Manual) 8 Eosinophils % (Manual) 5 H Metamyelocytes % (Man) 3 H Abs Neuts (Manual) 11.8 H Differential Comment . Platelet Estimate Low L Platelet Morphology Normal Sodium 139 Potassium 4.0 Chloride 105 Carbon Dioxide 26.6 Anion Gap 7 BUN 20 H Creatinine 1.72 H Estimated GFR 40 L Random Glucose 95 Calcium 7.9 L Total Bilirubin 0.6 AST 59 H ALT 32 Alkaline Phosphatase 68 Total Protein 5.6 L Albumin 2.0 L Urine Color Yellow Urine Clarity Clear Urine pH 6.0 Ur Specific [place] 1.013 Urine Protein 30 H Urine Glucose (UA) 50 Urine Ketones Negative Urine Occult Blood Large H Urine Nitrate Negative Urine Bilirubin Negative Urine Urobilinogen 4 or greater Ur Leukocyte Esterase Negative Urine RBC 2 Urine WBC 2 Urine Bacteria Rare H Urine Mucus Few H Micro UA Comment Culture not ind Ur Microscopic Review Not Reportable Urine Culture Comments Culture not ind Review/Management - Diagnosis (1) Metastatic primary lung cancer Code(s): C34.90 - Malignant neoplasm of unspecified part of unspecified bronchus or lung Status: Acute Current Visit: Yes (2) Lower extremity weakness Code(s): R29.898 - Other symptoms and signs involving the musculoskeletal system Status: Acute Current Visit: Yes (3) Atrial fibrillation Code(s): I48.91 - Unspecified atrial fibrillation Status: Acute Current Visit: Yes - Review/Management Plan: D/W DR LING TRIAL OF DDECADRON 4MG QID MRI RPT NOT YET DONE PT EVAL cta showed some blockages but does have flow in ble arterial dr hannah not convinced the thoracic abn is met could be vascular? i austyn neurorad check cpk labs hit rx per dr pablo hernandez recently fu echo some infarct in kidney ? 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 will have to repeat mri t spine concerned with new weak left ankle 01/22/18 mri t spine no change looks more peripheral and not in cord neurorads did not think this was a cord avm vascular feels sx not from aortic dz with the left foot drop need emg and worry about carcinomatous meningits needs LP when able i will dw heme about plts try lyrica and neurontin not helping 01/23/18 no major change emg pend try decadron check cpk similar sx to a diabetic amyotrophy picture check mri of the ls plexus and pelvis 01/24/18 pain much better plt 49k should be able to do LP soon maybe a llittle stronger left ta ? aseptic necrosis hip so will hold further steroids and please have heme order LP jermiane when cleared plexus mri neg 01/25/[address] Yesenia hopper and dr shah no need to do LP now as cannot rx with chemo so surgery for what was felt yest to be ischemia sudden change watch renal fx emg pend 01/25/18/ doing well post op if pain does not return then yessy vascular creat 1.4 plt down a little legs warm looks well will fu monday if stillhere. emg possibly today o/w i will have to do o/p 01/27/2018 Arm strength improved. Leg strength improved after revascularization procedure although chronic left foot weakness Discussed with patient and spouse follow exam 01/28/2018 Strength improved in the upper extremities able raise above his head good radial pulse good chief librarian branch strength. Lower extremity strength also improving. Chronic left dorsiflexion weakness therapy rehab outpatient EMG PT Discussed with patient and spouse (2) Lower extremity weakness Qualifiers: Laterality: bilateral Qualified Code(s): R29.898 - Other symptoms and signs involving the musculoskeletal system
--- NOTE | 2018-01-28 11:11 | P.PNVS ---
Subjective Subjective/Hospital Course: Patient seen and full consult dictated We will follow Thanks J 01/24/[address] Veras, interventional radiology and we jointly examined the patient and spoke to the and the patient. For details refer to my original consult from last week. On physical exam patient has more prominent changes as far as the decrease in blood flow in both feet. He still has dopplerable femoral and popliteal pulses as well as weak dorsalis pedis posterior tibial on the left and only posterior tibial on the right. In comparison to last week and this Monday, indeed toes are more dusky appearing with some cyanotic hue especially the right foot. Capillary refill is quite decreased at this time. There is no question that patient is throwing embolic material and showering microthrombi and micro emboli distally. Renal function is somewhat improved which is helpful and platelet count is slowly rising. This is a very complex situation and remedies are limited Patient is not a candidate for aortobifemoral bypass for this is a major surgery which patient would not sustain very well. The other option is placing iliac covered stents to push the clot aside. Unfortunately this would allow for aortic thrombotic material to flush downward unimpeded and with essentially worsened the situation. Therefore after discussing this with patient and family and then between Dr. Veras, Dr. Calzada and myself we agreed on following hybrid approach Patient will have axillobifemoral bypass in order to improve the blood flow to the legs and bypass the occluded area of aorta and iliac arteries. At the same , time Dr. Veras will coil the remaining proximal iliac flow in order to prevent clots from flushing down further. Between these 2 patient has the best chance to maintain the flow to the legs and minimize the chance of further distal embolization. Unfortunately patient does have metastatic lung cancer and his longevity is predicated upon this but also possible complications from the above-noted procedures for he will continue to have a low level consumption coagulopathy and may form clots in his axillobifemoral graft or in the distal stebbins vessels. He will need to remain on full anticoagulation for the rest of his life probably go home on either factor VIIa inhibitor or thrombin inhibitor. I will also offer to the patient the option of going back to [facility] where he already had lung surgery and brain surgery for they have established trust with that group of physicians and surgeons. Otherwise, patient is on schedule for tomorrow for axillobifemoral bypass and coiling of the iliacs. Discussed with hematology as well. I have extensively discussed the risks and benefits of the surgery with patient and his as well as potential risks including loss of both extremities and . 01/26/2018 Patient is status post axillobifemoral bypass and endovascular coiling of the common iliac arteries Incisions are clean and dry Patient is awake alert and oriented Patient has brisk flow in the axillofemoral graft and strong dopplerable popliteal and posterior tibial pulses Weak dorsalis pedis pulses Feet are nice and warm well perfused and capillary refill is normal Patient currently on argatroban and should probably go home on some oral anticoagulant probably Eliquis. Plan Transfer to floor Hep-Lock IV Out of bed Regular diet 01/27/2018 Patient doing well incisions are clean and dry Excellent flow in the axillofemoral portion of the graft into the both groins Both feet are nice and warm and well-perfused Patient still has some weakness in the right arm but this is improving since the surgery Patient ambulating in the corners without difficulty Greatly appreciate expertise by Dr. Calzada Fully agree with care and Dr. Hernandez hematology and Dr. Benjamin neurology valuable inputs and expertise are greatly appreciated Nothing to add from vascular point 01/28/2018 Patient doing very well Incisions clean and dry Excellent Doppler signal and the axillobifemoral grafts and distally Feet are warm and well perfused with normal capillary refill Patient may shower get incisions wet Objective Vital Signs / I&O: Vital Signs 01/27/18 11:19 01/27/18 12:00 01/27/18 16:00 Temperature 99.1 F 97.9 F Pulse Rate 84 86 Respiratory Rate 18 16 Blood Pressure 143/64 H 134/62 Pulse Oximetry 95 95 95 01/27/18 20:00 01/28/18 00:00 01/28/18 04:00 Temperature 102.0 F H 100.8 F H 98.8 F Pulse Rate 94 H 75 Respiratory Rate 20 20 Blood Pressure 129/62 110/76 Pulse Oximetry 94 L 96 01/28/18 08:00 Temperature 98.6 F Pulse Rate 78 Respiratory Rate 18 Blood Pressure 133/61 Pulse Oximetry 96 Intake & Output 01/27/18 01/28/18 01/28/18 18:59 06:59 18:59 Intake Total 2920 / 2920 1000 / 1000 Output Total 1000 / 1000 900 / 900 Balance 1920 / 1920 100 / 100 Intake: IV 1720 / 1720 1000 / 1000 Novastan Inj 250 MG In NS Inj 250 / 250 247.5 ML @ Per Protocol IV.CONT TITRATE PRN Rx#:[id number] 1/ Normal Saline Inj 1,000 ML 1000 / 1000 @ 70 mls/hr IV.CONT .[id number] [facility] Rx#:[id number] Oral 1200 / 1200 Output: Urine 1000 / 1000 900 / 900 Other: # Voids 2 Date of Last Bowel Movement 01/23/18 01/23/18 01/23/18 Laboratory Results - last 24 hr 01/27/18 01/28/18 01/28/18 21:45 05:56 05:56 WBC 15.9 H RBC 2.78 L Hgb 8.3 L Hct 25.2 L MCV 90.6 D MCH 29.9 MCHC 33.0 RDW 17.6 H Plt Count 54 L MPV 8.3 Prelim Diff (Auto) Slide review pending Neut % (Auto) 74.1 H Lymph % (Auto) 10.3 [place] % (Auto) 9.4 H Eos % (Auto) 5.7 H Baso % (Auto) 0.5 Neut # (Auto) 11.8 H Lymph # (Auto) 1.6 [place] # (Auto) 1.5 H Eos # (Auto) 0.9 H Baso # (Auto) 0.1 WBC Differential Manual diff final Seg Neuts % (Manual) 69 Band Neuts % (Manual) 2 Lymphocytes % (Manual) 13 Monocytes % (Manual) 8 Eosinophils % (Manual) 5 H Metamyelocytes % (Man) 3 H Abs Neuts (Manual) 11.8 H Differential Comment . Platelet Estimate Low L Platelet Morphology Normal Sodium 139 Potassium 4.0 Chloride 105 Carbon Dioxide 26.6 Anion Gap 7 BUN 20 H Creatinine 1.72 H Estimated GFR 40 L Random Glucose 95 Calcium 7.9 L Total Bilirubin 0.6 AST 59 H ALT 32 Alkaline Phosphatase 68 Total Protein 5.6 L Albumin 2.0 L Urine Color Yellow Urine Clarity Clear Urine pH 6.0 Ur Specific [place] 1.013 Urine Protein 30 H Urine Glucose (UA) 50 Urine Ketones Negative Urine Occult Blood Large H Urine Nitrate Negative Urine Bilirubin Negative Urine Urobilinogen 4 or greater Ur Leukocyte Esterase Negative Urine RBC 2 Urine WBC 2 Urine Bacteria Rare H Urine Mucus Few H Micro UA Comment Culture not ind Ur Microscopic Review Not Reportable Urine Culture Comments Culture not ind Microbiology 01/27/18 12:05 Aerobic Blood Culture - Preliminary Blood - Peripheral No growth in 1 day Anaerobic Blood Culture - Preliminary No growth in 1 day 01/27/18 12:00 Aerobic Blood Culture - Preliminary Blood - Peripheral No growth in 1 day Anaerobic Blood Culture - Preliminary No growth in 1 day Impressions Pelvic Arteriogram 01/25/18 00:00 CONCLUSION: 1. Successful deployment of bilateral 8 mm x 20 cm interlock coils within the central portions of the common iliac arteries bilaterally. 2. Procedure was done in conjunction with the surgical axillary bifemoral bypass. Neck MRA 01/26/18 00:00 CONCLUSION: 1. Limited exam because of lack of intravenous contrast. 2. Phase contrast study was performed. Correlation ultrasound would be of benefit. Stenosis of the left does not not appear to be hemodynamically significant. _ Percent stenosis is calculated using the diameter of the stenotic region over the diameter of the normal distal internal carotid artery _ Head MRI 01/26/18 10:49 CONCLUSION: 1. Encephalomalacia involving the left occipital lobe with ex vacuo dilatation of the atrium of the left lateral ventricle. 2. No acute infarct, acute hemorrhage, midline shift or extra-axial fluid collections. Head MRA 01/26/18 10:49 CONCLUSION: 1. Anatomic variant of the [place] as above. 2. Otherwise, intracranial vessels are all patent without aneurysmal disease. Cervical Spine MRI 01/26/18 10:50 CONCLUSION: 1. Small broad-based central to left paracentral focal disc bulges at C4-5 and C5-6 resulting and mild spinal stenosis and mild bilateral foraminal narrowing. Mild facet joint hypertrophy is noted bilaterally at these levels. 2. Minimal diffuse disc bulges at C3-4 and C6-7. 3. Minimal bilateral foraminal narrowing at C3-4. Chest X-Ray 01/27/18 00:00 CONCLUSION: Evidence for previous surgery in the left upper lobe with some peribronchial thickening in the left lower lobe. Right lung is clear.
[2018-01-28 12:32] LABS: Activated Partial Thrombo Time 59.8 sec (24.3-30.1); INR 3.5 Ratio; Prothrombin Time 34.8 sec (9.8-11.6)
[2018-01-28] MEDS: Morphine Sulfate Inj 2 MG/ML Vial IV.PUSH PRN (18:24)
[2018-01-28] MEDS: Temazepam 15 MG Capsule PO PRN (22:05)
[2018-01-29] MEDS: Argatroban Inj 250 MG in Sodium Chlor 0.9% Inj 247.5 ML IV.CONT PRN ×2 (00:23→00:30)
[2018-01-29 06:10] LABS: Baso # (Auto) 0.1 th/mm3 (0.0-0.2); Baso % (Auto) 0.5 % (0.0-2.0); Eos # (Auto) 0.7 th/mm3 (0.0-0.4); Eos % (Auto) 5.5 % (0.0-4.0); Hematocrit 24.7 % (39.0-51.0); Hemoglobin 8.2 gm/dL (13.0-17.0); Lymph # (Auto) 1.9 th/mm3 (1.0-4.8); Mean Corpuscular HGB Conc 33.3 % (32.0-36.0); Mean Corpuscular Hemoglobin 30.1 pg (27.0-34.0); Mean Corpuscular Volume 90.4 fL (80.0-100.0); Mean Platelet Volume 8.2 fL (7.0-11.0); Mono # (Auto) 1.3 th/mm3 (0.0-0.9); Mono % (Auto) 10.7 % (0.0-8.0); Neut # (Auto) 8.5 th/mm3 (1.8-7.7); Neut % (Auto) 68.3 % (16.0-70.0); Platelet Count 59 th/mm3 (150-450); Red Blood Count 2.73 mil/mm3 (4.50-5.90); Red Cell Distribution Width 17.5 % (11.6-17.2); White Blood Count 12.5 th/mm3 (4.0-11.0)
[2018-01-29 06:34] LABS: Albumin 1.9 g/dL (3.4-5.0); Anion Gap 7 meq/L (5-15); Aspartate Aminotransferase 48 U/L (15-37); Blood Urea Nitrogen 18 mg/dL (7-18); Calcium 8.1 mg/dL (8.5-10.1); Chloride 106 meq/L (98-107); Glomerular Filtration Rate 42 mL/min (>89); Glucose,Random 96 mg/dL (74-106); Potassium 3.8 meq/L (3.5-5.1); Sodium 139 meq/L (136-145)
[2018-01-29 06:35] LABS: Alanine Aminotransferase 32 U/L (12-78)
[2018-01-29 06:37] LABS: Alkaline Phosphatase 65 U/L (45-117); Total Protein 5.7 g/dL (6.4-8.2)
[2018-01-29] MEDS: Sodium Chloride 0.45 % Inj 1,000 ML IV.CONT SCH (07:34)
[2018-01-29 07:47] LABS: Eosinophils 5 % (0-4); Lymphocytes 18 % (9-44); Metamyelocytes 3 % (0-1); Monocytes 4 % (0-8); Myelocytes 1 % (0-0); Platelet Morphology Normal (Normal)
--- NOTE | 2018-01-29 09:27 | P.PNNEU ---
Subjective Active Medications: Active Medications Acetaminophen (Tylenol) 650 mg PO Q4H PRN PRN Reason: Temp > 100.4 Last Admin: 01/27/18 21:41 Dose: 650 mg Al Hydroxide/Mg Hydroxide (Milk Of Magnesia Liq) 30 ml PO Q12H PRN PRN Reason: Mild Constipation Last Admin: 01/23/18 20:34 Dose: 30 ml Bisacodyl (Dulcolax Supp) 10 mg RECTAL DAILY PRN PRN Reason: SEVERE CONSITIPATION Budesonide/Formoterol Fumarate (Symbicort 160/4.5 Mcg Inh) 2 puff INH BID [facility] Last Admin: 01/28/18 22:03 Dose: 2 puff Clonidine HCl (Catapres) 0.1 mg PO Q6H PRN PRN Reason: SEE LABEL COMMENTS Folic Acid (Folic Acid) 1 mg PO DAILY [facility] Last Admin: 01/28/18 08:46 Dose: 1 mg Argatroban 250 mg/ Sodium (Chloride) 250 mls @ 0 mls/hr IV.CONT TITRATE PRN; Protocol PRN Reason: Per Protocol Last Admin: 01/29/18 00:30 Dose: 2.12 mcg/kg/min, 8.8 mls/hr Sodium Chloride (1/2 Normal Saline Inj) 1,000 mls @ 70 mls/hr IV.CONT .[id number] [facility] Last Admin: 01/29/18 07:34 Dose: 70 mls/hr Lactulose (Lactulose Liq) 30 ml PO DAILY PRN PRN Reason: SEVERE CONSITIPATION Metoprolol Tartrate (Lopressor) 12.5 mg PO BID [facility] Last Admin: 01/28/18 22:03 Dose: 12.5 mg Miscellaneous (Pill Splitter) 1 each OTHER UNSCH PRN PRN Reason: SEE LABEL COMMENTS Morphine Sulfate (Morphine Inj) 1 mg IV.PUSH Q6HR PRN PRN Reason: PAIN 6-10;IF UNABLE TO TAKE PO Last Admin: 01/28/18 18:24 Dose: 1 mg Naloxone HCl (Narcan Inj) 0.4 mg IV.PUSH UNSCH PRN PRN Reason: SEE LABEL COMMENTS Oxycodone HCl (Roxicodone) 5 mg PO Q6H PRN PRN Reason: PAIN SCALE 1 TO 10 Last Admin: 09/23/18 22:01 Dose: 5 mg Pantoprazole Sodium (Protonix) 40 mg PO DAILY [facility] Last Admin: 01/28/18 08:46 Dose: 40 mg Pregabalin (Lyrica) 50 mg PO BID [facility] Last Admin: 01/28/18 22:03 Dose: 50 mg Sennosides (Senokot) 17.2 mg PO Q12H PRN PRN Reason: Moderate Constipation Last Admin: 01/21/18 22:30 Dose: 17.2 mg Sodium Chloride (Ns Flush) 2 ml IV.FLUSH PRN PRN PRN Reason: FLUSH AFTER USING IV ACCESS Last Admin: 01/20/18 20:43 Dose: 2 ml Temazepam (Restoril) 15 mg PO HS PRN PRN Reason: INSOMNIA Last Admin: 01/28/18 22:05 Dose: 15 mg Allergies/Adverse Reactions: Allergies Allergy/AdvReac Type Severity Reaction Status Date / Time No Known Allergies Allergy Unverified 01/17/18 11:06 Physical Exam Vital signs: Vital Signs 01/28/18 12:00 01/28/18 16:00 01/28/18 20:00 Temperature 99.0 F 99.8 F H 99.6 F Pulse Rate 77 88 90 Respiratory Rate 18 19 20 Blood Pressure 113/61 133/62 116/59 L Pulse Oximetry 98 99 96 01/29/18 00:00 Temperature 99.8 F H Pulse Rate 87 Respiratory Rate 20 Blood Pressure 112/57 L Pulse Oximetry 94 L Intake & Output 01/28/18 01/29/18 01/29/18 18:59 06:59 18:59 Intake Total 1000 / 1000 590 / 590 1000 / 1000 Output Total 480 / 480 Balance 1000 / 1000 110 / 110 1000 / 1000 Intake: IV 1000 / 1000 250 / 250 1000 / 1000 Novastan Inj 250 MG In NS Inj 250 / 250 247.5 ML @ Per Protocol IV.CONT TITRATE PRN Rx#:[id number] 1/2 Normal Saline Inj 1,000 ML 1000 / 1000 1000 / 1000 @ 70 mls/hr IV.CONT .[id number] [facility] Rx#:[id number] Oral 340 / 340 Output: Urine 480 / 480 Other: # Voids 3 Date of Last Bowel Movement 01/28/18 # Bowel Movements 0 Narrative: rue 5/5 delt bicep tricep finger ext fdi apb infraspinatus and suprspinatus 5/5 ble x 4-4+/5 left ta feet warm mild ataixia rue not rle - Urinary Catheter Management Indwelling Urethral Catheter Cath placed during this visit: yes, but has since been removed by the nurse Reason for continuing: Decision to DC catheter Insertion date: 01/25/18 Insertion time: 12:59 Removal date: 01/26/18 Removal time: 17:00 Objective Laboratory Results - last 24 hr 01/28/18 01/29/18 01/29/18 11:46 05:44 05:44 WBC 12.5 H RBC 2.73 L Hgb 8.2 L Hct 24.7 L MCV 90.4 MCH 30.1 MCHC 33.3 RDW 17.5 H Plt Count 59 L MPV 8.2 Prelim Diff (Auto) Slide review pending Neut % (Auto) 68.3 Lymph % (Auto) 15.0 [place] % (Auto) 10.7 H Eos % (Auto) 5.5 H Baso % (Auto) 0.5 Neut # (Auto) 8.5 H Lymph # (Auto) 1.9 [place] # (Auto) 1.3 H Eos # (Auto) 0.7 H Baso # (Auto) 0.1 WBC Differential Manual diff final Seg Neuts % (Manual) 68 Band Neuts % (Manual) 1 Lymphocytes % (Manual) 18 Monocytes % (Manual) 4 Eosinophils % (Manual) 5 H Metamyelocytes % (Man) 3 H Myelocytes % (Man) 1 H Abs Neuts (Manual) 9.1 H Differential Comment . Platelet Estimate Low L Platelet Morphology Normal PT 34.8 H INR 3.5 APTT 59.8 H Sodium 139 Potassium 3.8 Chloride 106 Carbon Dioxide 26.0 Anion Gap 7 BUN 18 Creatinine 1.64 H Estimated GFR 42 L Random Glucose 96 Calcium 8.1 L Total Bilirubin 0.5 AST 48 H ALT 32 Alkaline Phosphatase 65 Total Protein 5.7 L Albumin 1.9 L 01/29/18 05:44 WBC RBC Hgb Hct MCV MCH MCHC RDW Plt Count MPV Prelim Diff (Auto) Neut % (Auto) Lymph % (Auto) [place] % (Auto) Eos % (Auto) Baso % (Auto) Neut # (Auto) Lymph # (Auto) [place] # (Auto) Eos # (Auto) Baso # (Auto) WBC Differential Seg Neuts % (Manual) Band Neuts % (Manual) Lymphocytes % (Manual) Monocytes % (Manual) Eosinophils % (Manual) Metamyelocytes % (Man) Myelocytes % (Man) Abs Neuts (Manual) Differential Comment Platelet Estimate Platelet Morphology PT INR APTT 61.1 H Sodium Potassium Chloride Carbon Dioxide Anion Gap BUN Creatinine Estimated GFR Random Glucose Calcium Total Bilirubin AST ALT Alkaline Phosphatase Total Protein Albumin Microbiology 01/27/18 12:05 Aerobic Blood Culture - Preliminary Blood - Peripheral No growth in 1 day Anaerobic Blood Culture - Preliminary No growth in 1 day 01/27/18 12:00 Aerobic Blood Culture - Preliminary Blood - Peripheral No growth in 1 day Anaerobic Blood Culture - Preliminary No growth in 1 day Review/Management - Diagnosis (1) Metastatic primary lung cancer Code(s): C34.90 - Malignant neoplasm of unspecified part of unspecified bronchus or lung Status: Acute Current Visit: Yes (2) Lower extremity weakness Code(s): R29.898 - Other symptoms and signs involving the musculoskeletal system Status: Acute Current Visit: Yes (3) Atrial fibrillation Code(s): I48.91 - Unspecified atrial fibrillation Status: Acute Current Visit: Yes - Review/Management Plan: D/W DR LING TRIAL OF DDECADRON 4MG QID MRI RPT NOT YET DONE PT EVAL cta showed some blockages but does have flow in ble arterial dr hannah not convinced the thoracic abn is met could be vascular? i austyn neurorad check cpk labs hit rx per dr pablo hernandez recently fu echo some infarct in kidney ? 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 will have to repeat mri t spine concerned with new weak left ankle 01/22/18 mri t spine no change looks more peripheral and not in cord neurorads did not think this was a cord avm vascular feels sx not from aortic dz with the left foot drop need emg and worry about carcinomatous meningits needs LP when able i will dw heme about plts try lyrica and neurontin not helping 01/23/18 no major change emg pend try decadron check cpk similar sx to a diabetic amyotrophy picture check mri of the ls plexus and pelvis 01/24/18 pain much better plt 49k should be able to do LP soon maybe a llittle stronger left ta ? aseptic necrosis hip so will hold further steroids and please have heme order LP jermaine when cleared plexus mri neg 01/25/[address] Yesenia hopper and dr shah no need to do LP now as cannot rx with chemo so surgery for what was felt yest to be ischemia sudden change watch renal fx emg pend 01/25/18/ doing well post op if pain does not return then yessy vascular creat 1.4 plt down a little legs warm looks well will fu monday if stillhere. emg possibly today o/w i will have to do o/p 01/27/2018 Arm strength improved. 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 Lower extremity strength also improving. Chronic left dorsiflexion weakness therapy rehab outpatient EMG PT Discussed with patient and spouse 01/29/18 he is alittle ataixic rue but i reviewed mri and no cva mra x2 neg x melisa has some dz we can look at this infuture dep on how plts and ca goes the ruchi napoles mr neg unclear why go this ataxia ow doing well and the left ta wekness improving and the pain lle gone now post op so must have been vascular (2) Lower extremity weakness Qualifiers: Laterality: bilateral Qualified Code(s): R29.898 - Other symptoms and signs involving the musculoskeletal system
[2018-01-29] MEDS: Pregabalin 25 MG Capsule PO SCH ×2 (10:25→20:26)
[2018-01-29] MEDS: Budesonide-Formoterol 160/4.5 MCG 6 GM Inhaler INH SCH ×2 (10:25→20:27)
[2018-01-29] MEDS: Folic Acid 1 MG Tablet PO SCH (10:25)
[2018-01-29] MEDS: Metoprolol Tartrate 25 MG Tablet PO SCH ×2 (10:25→20:26)
--- NOTE | 2018-01-29 11:26 | P.PNNP ---
Subjective Interval history: Patient lying in bed. Indicating that he feels quite well. by bedside. Physical Exam Vital signs: Vital Signs 01/28/18 12:00 01/28/18 16:00 01/28/18 20:00 Temperature 99.0 F 99.8 F H 99.6 F Pulse Rate 77 88 90 Respiratory Rate 18 19 20 Blood Pressure 113/61 133/62 116/59 L Pulse Oximetry 98 99 96 01/29/18 00:00 01/29/18 08:00 Temperature 99.8 F H 98.5 F Pulse Rate 87 84 Respiratory Rate 20 17 Blood Pressure 112/57 L 125/68 Pulse Oximetry 94 L 96 Intake & Output 01/28/18 01/29/18 01/29/18 18:59 06:59 18:59 Intake Total 1000 / 1000 590 / 590 1000 / 1000 Output Total 480 / 480 Balance 1000 / 1000 110 / 110 1000 / 1000 Intake: IV 1000 / 1000 250 / 250 1000 / 1000 Novastan Inj 250 MG In NS Inj 250 / 250 247.5 ML @ Per Protocol IV.CONT TITRATE PRN Rx#:[id number] 1/2 Normal Saline Inj 1,000 ML 1000 / 1000 1000 / 1000 @ 70 mls/hr IV.CONT .[id number] [facility] Rx#:[id number] Oral 340 / 340 Output: Urine 480 / 480 Other: # Voids 3 Date of Last Bowel Movement 01/28/18 # Bowel Movements 0 Narrative: r GENERAL: Patient not in respiratory distress. SKIN: Warm and dry. HEAD: Atraumatic. Normocephalic. EYES: Pupils equal and round. No scleral icterus. No injection or drainage. ENT: Mucous membranes pink and dry NECK: No JVD. CARDIOVASCULAR: Regular rate and rhythm. RESPIRATORY: No accessory muscle use. Clear to auscultation. Breath sounds equal bilaterally. GASTROINTESTINAL: Abdomen soft, non-tender, nondistended. Hepatic and splenic margins not palpable. MUSCULOSKELETAL: Extremities without clubbing, cyanosis, or edema. - Urinary Catheter Management Indwelling Urethral Catheter Cath placed during this visit: yes, but has since been removed by the nurse Reason for continuing: Decision to DC catheter Insertion date: 01/25/18 Insertion time: 12:59 Removal date: 01/26/18 Removal time: 17:00 Assessment and Plan - Assessment (1) EVON (acute kidney injury) Code(s): N17.9 - Acute kidney failure, unspecified Status: Acute Plan: Patient likely has developed some degree of contrast nephrotoxicity post CTA. Patient also has evidence of renal infarct involving the lower pole of the right kidney. Unfortunately cannot be certain as to the timing of the event. 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 Also mention of atrial fibrillation and a history. Potential for pre-existing renal insufficiency related to chemotherapy from [facility] as admitting SCr at 1.2. Patient's creatinine level slightly improved since yesterday. Hopefully this trend will continue as discussed with the patient. He was encouraged to increase his oral fluid intake and indicated that he would do so but is requesting discontinuance of maintenance IV hydration-. I advised him we could do this if he agrees to maintain a fluid intake of about 50-60 ounces daily and he indicated that he would do so. Medications should be adjusted for the patient's estimated GFR if clinically indicated. Avoid agents with significant potential for nephrotoxicity possible including NSAIDs for analgesia, iodine contrast agents. Gadolinium is contraindicated if the GFR is below 30. (2) Renal infarction Code(s): N28.0 - Ischemia and infarction of kidney Status: Acute Plan: Risk factors as described above for renal infarction. Timing of infarction uncertain and it may have been subacute or chronic in nature. Patient already on anticoagulation. No new recommendations from my point of view in regard to management of same.
--- NOTE | 2018-01-29 14:10 | P.PNONC ---
Subjective Interval history: Afebrile. T-max 99.8 F. Patient reports that he is feeling well today. He has some soreness to his legs which he is attributing to the surgery. No other complaints at this time. He states he has been ambulating in the room. He feels he is getting his strength back in his legs. Objective Vital Signs/Intake & Output: Vital Signs 01/28/18 16:00 01/28/18 20:00 01/29/18 00:00 Temperature 99.8 F H 99.6 F 99.8 F H Pulse Rate 88 90 87 Respiratory Rate 19 20 20 Blood Pressure 133/62 116/59 L 112/57 L Pulse Oximetry 99 96 94 L 01/29/18 08:00 Temperature 98.5 F Pulse Rate 84 Respiratory Rate 17 Blood Pressure 125/68 Pulse Oximetry 96 Intake & Output 01/28/18 01/29/18 01/29/18 18:59 06:59 18:59 Intake Total 1000 / 1000 590 / 590 1450 / 1450 Output Total 480 / 480 Balance 1000 / 1000 110 / 110 1450 / 1450 Intake: IV 1000 / 1000 250 / 250 1450 / 1450 Novastan Inj 250 MG In NS Inj 250 / 250 247.5 ML @ Per Protocol IV.CONT TITRATE PRN Rx#:[id number] 1/2 Normal Saline Inj 1,000 ML 1000 / 1000 1450 / 1450 @ 70 mls/hr IV.CONT .[id number] [facility] Rx#:[id number] Oral 340 / 340 Output: Urine 480 / 480 Other: # Voids 3 Date of Last Bowel Movement 01/28/18 # Bowel Movements 0 Result Diagrams: 01/29/18 05:44 01/29/18 05:44 Laboratory Results: Laboratory Results - last 24 hr 01/29/18 01/29/18 01/29/18 05:44 05:44 05:44 WBC 12.5 H RBC 2.73 L Hgb 8.2 L Hct 24.7 L MCV 90.4 MCH 30.1 MCHC 33.3 RDW 17.5 H Plt Count 59 L MPV 8.2 Prelim Diff (Auto) Slide review pending Neut % (Auto) 68.3 Lymph % (Auto) 15.0 [place] % (Auto) 10.7 H Eos % (Auto) 5.5 H Baso % (Auto) 0.5 Neut # (Auto) 8.5 H Lymph # (Auto) 1.9 [place] # (Auto) 1.3 H Eos # (Auto) 0.7 H Baso # (Auto) 0.1 WBC Differential Manual diff final Seg Neuts % (Manual) 68 Band Neuts % (Manual) 1 Lymphocytes % (Manual) 18 Monocytes % (Manual) 4 Eosinophils % (Manual) 5 H Metamyelocytes % (Man) 3 H Myelocytes % (Man) 1 H Abs Neuts (Manual) 9.1 H Differential Comment . Platelet Estimate Low L Platelet Morphology Normal APTT 61.1 H Sodium 139 Potassium 3.8 Chloride 106 Carbon Dioxide 26.0 Anion Gap 7 BUN 18 Creatinine 1.64 H Estimated GFR 42 L Random Glucose 96 Calcium 8.1 L Total Bilirubin 0.5 AST 48 H ALT 32 Alkaline Phosphatase 65 Total Protein 5.7 L Albumin 1.9 L Culture Results: Microbiology 01/27/18 12:05 Aerobic Blood Culture - Preliminary Blood - Peripheral No growth in 2 days Anaerobic Blood Culture - Preliminary No growth in 2 days 01/27/18 12:00 Aerobic Blood Culture - Preliminary Blood - Peripheral No growth in 2 days Anaerobic Blood Culture - Preliminary No growth in 2 days 01/21/18 10:25 Aerobic Blood Culture - Final Blood - Peripheral No growth in 5 days Anaerobic Blood Culture - Final No growth in 5 days 01/21/18 10:14 Aerobic Blood Culture - Final Blood - Peripheral No growth in 5 days Anaerobic Blood Culture - Final No growth in 5 days Medications: Active Medications Generic Name Dose Route Start Last Admin Trade Name Freq PRN Reason Stop Dose Admin Acetaminophen 650 mg 01/27/18 08:52 01/27/18 21:41 Tylenol PO 650 mg Q4H PRN Administration Temp > 100.4 Al Hydroxide/Mg Hydroxide 30 ml 01/17/18 14:19 01/23/18 20:34 Milk Of Magnesia Liq PO 30 ml Q12H PRN Administration Mild Constipation Budesonide/Formoterol Fumarate 2 puff 01/17/18 14:00 01/29/18 10:25 Symbicort 160/4.5 Mcg Inh INH 2 puff BID [facility] Administration Folic Acid 1 mg 01/17/18 13:45 01/29/18 10:25 Folic Acid PO 1 mg DAILY [facility] Administration Argatroban 250 mg/ Sodium 250 mls @ 0 mls/hr 01/18/18 15:00 01/29/18 00:30 Chloride IV.CONT 2.12 mcg/kg/min TITRATE PRN 8.8 mls/hr Per Protocol Administration Protocol Per Protocol Metoprolol Tartrate 12.5 mg 01/28/18 09:00 01/29/18 10:25 Lopressor PO 12.5 mg BID [facility] Administration Morphine Sulfate 1 mg 01/26/18 10:08 01/28/18 18:24 Morphine Inj IV.PUSH 1 mg Q6HR PRN Administration PAIN 6-10;IF UNABLE TO TAKE PO Oxycodone HCl 5 mg 01/28/18 18:50 01/29/18 10:22 Roxicodone PO 5 mg Q6H PRN Administration PAIN SCALE 1 TO 10 Pantoprazole Sodium 40 mg 01/17/18 14:00 01/29/18 10:25 Protonix PO 40 mg DAILY [facility] Administration Pregabalin 50 mg 01/27/18 11:30 01/29/18 10:25 Lyrica PO 50 mg BID [facility] Administration Sennosides 17.2 mg 01/17/18 14:08 01/21/18 22:30 Senokot PO 17.2 mg Q12H PRN Administration Moderate Constipation Sodium Chloride 2 ml 01/17/18 11:17 01/20/18 20:43 Ns Flush IV.FLUSH 2 ml PRN PRN Administration FLUSH AFTER USING IV ACCESS Temazepam 15 mg 01/17/18 21:00 01/28/18 22:05 Restoril PO 15 mg HS PRN Administration INSOMNIA Objective Remarks: GENERAL: Middle-aged male patient, lying in bed, in no acute distress. SKIN: Warm and dry. Bilateral groin dressings dry and intact. Petechiae to left lateral calf. HEAD: Normocephalic. EYES: No scleral icterus. No injection or drainage. NECK: Supple, trachea midline. CARDIOVASCULAR: +S1/S2 without murmurs. RESPIRATORY: Anterior breath sounds clear, non-labored. GASTROINTESTINAL: Abdomen soft, non-tender, nondistended. EXTREMITIES: 1+ edema to left lower extremity. Feet/toes warm to touch. Rubor tips of right toes. MUSCULOSKELETAL: Adequate muscle tone. NEUROLOGICAL: No obvious focal deficit. Awake, alert, and oriented x3. 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 Bernstein is a pleasant 62-year-old gentleman with a history of non-small cell lung cancer with brain metastasis, status post craniotomy with resection followed by stereotactic radiosurgery with gamma knife, 3-4 cycles of preop Immunochemotherapy with 2 doses of Platinol and Alimta he also underwent thoracotomy and resection of the left upper lobe and wedge resection of the left lower lobe on 01/01/2018. Patient had minimal residual disease of 0.6 cm and also the lymph nodes were negative. Margins were also negative. During this admission the patient was found to have severe thrombocytopenia. Patient did have recent exposure to subcutaneous heparin after his recent surgery. Plan: 1. Continue Argatroban drip, platelets today 59k. Once platelets are greater than 100,000 we can bridge argatroban to oral anticoagulant. 2. Afebrile times 24 hours. Blood cultures with no growth times 2 days. 3. Continue to monitor for bleeding. 4. Continue supportive care. - Attending Statement The exam, history, and the medical decision-making described in the above note were completed with the assistance of the mid-level provider. I reviewed and agree with the findings presented. I attest that I had a [id number] encounter with the patient on the same day, and personally performed and documented my assessment and findings in the medical record. Patient is feeling much better Ready to go for shower and then his plan is to walk in the hallway this evening Patient is able to walk in the room without having any difficulty The right upper extremity ataxia has almost resolved Platelets are coming up, continue argatroban drip Monitor CBC
[2018-01-29] MEDS: Acetaminophen 325 MG Tablet PO PRN (14:19)
--- NOTE | 2018-01-29 14:45 | P.PNVS ---
Subjective Subjective/Hospital Course: Patient seen and full consult dictated We will follow Thanks J 01/24/[address] Veras, interventional radiology and we jointly examined the patient and spoke to the and the patient. For details refer to my original consult from last week. On physical exam patient has more prominent changes as far as the decrease in blood flow in both feet. He still has dopplerable femoral and popliteal pulses as well as weak dorsalis pedis posterior tibial on the left and only posterior tibial on the right. In comparison to last week and this Monday, indeed toes are more dusky appearing with some cyanotic hue especially the right foot. Capillary refill is quite decreased at this time. There is no question that patient is throwing embolic material and showering microthrombi and micro emboli distally. Renal function is somewhat improved which is helpful and platelet count is slowly rising. This is a very complex situation and remedies are limited Patient is not a candidate for aortobifemoral bypass for this is a major surgery which patient would not sustain very well. The other option is placing iliac covered stents to push the clot aside. Unfortunately this would allow for aortic thrombotic material to flush downward unimpeded and with essentially worsened the situation. Therefore after discussing this with patient and family and then between Dr. Veras, Dr. Calzada and myself we agreed on following hybrid approach Patient will have axillobifemoral bypass in order to improve the blood flow to the legs and bypass the occluded area of aorta and iliac arteries. At the same , time Dr. Veras will coil the remaining proximal iliac flow in order to prevent clots from flushing down further. Between these 2 patient has the best chance to maintain the flow to the legs and minimize the chance of further distal embolization. Unfortunately patient does have metastatic lung cancer and his longevity is predicated upon this but also possible complications from the above-noted procedures for he will continue to have a low level consumption coagulopathy and may form clots in his axillobifemoral graft or in the distal chemehuevi vessels. He will need to remain on full anticoagulation for the rest of his life probably go home on either factor VIIa inhibitor or thrombin inhibitor. I will also offer to the patient the option of going back to [place] where he already had lung surgery and brain surgery for they have established trust with that group of physicians and surgeons. Otherwise, patient is on schedule for tomorrow for axillobifemoral bypass and coiling of the iliacs. Discussed with hematology as well. I have extensively discussed the risks and benefits of the surgery with patient and his as well as potential risks including loss of both extremities and . 01/26/2018 Patient is status post axillobifemoral bypass and endovascular coiling of the common iliac arteries Incisions are clean and dry Patient is awake alert and oriented Patient has brisk flow in the axillofemoral graft and strong dopplerable popliteal and posterior tibial pulses Weak dorsalis pedis pulses Feet are nice and warm well perfused and capillary refill is normal Patient currently on argatroban and should probably go home on some oral anticoagulant probably Eliquis. Plan Transfer to floor Hep-Lock IV Out of bed Regular diet 01/27/2018 Patient doing well incisions are clean and dry Excellent flow in the axillofemoral portion of the graft into the both groins Both feet are nice and warm and well-perfused Patient still has some weakness in the right arm but this is improving since the surgery Patient ambulating in the corners without difficulty Greatly appreciate expertise by Dr. Calzada Fully agree with care and Dr. Hernandez hematology and Dr. Benjamin neurology valuable inputs and expertise are greatly appreciated Nothing to add from vascular point 01/28/2018 Patient doing very well Incisions clean and dry Excellent Doppler signal and the axillobifemoral grafts and distally Feet are warm and well perfused with normal capillary refill Patient may shower get incisions wet 01/29/2018 Nothing to add to care Incisions clean and dry and patient ambulating with ease Would send home on some sort of anticoagulation preferably factor VII inhibitor Follow-up in my office in about 3-4 weeks Objective Vital Signs / I&O: Vital Signs 01/28/18 16:00 01/28/18 20:00 01/29/18 00:00 Temperature 99.8 F H 99.6 F 99.8 F H Pulse Rate 88 90 87 Respiratory Rate 19 20 20 Blood Pressure 133/62 116/59 L 112/57 L Pulse Oximetry 99 96 94 L 01/29/18 08:00 01/29/18 12:00 Temperature 98.5 F 99.6 F Pulse Rate 84 85 Respiratory Rate 17 18 Blood Pressure 125/68 146/69 H Pulse Oximetry 96 97 Intake & Output 01/28/18 01/29/18 01/29/18 18:59 06:59 18:59 Intake Total 1000 / 1000 590 / 590 1450 / 1450 Output Total 480 / 480 Balance 1000 / 1000 110 / 110 1450 / 1450 Intake: IV 1000 / 1000 250 / 250 1450 / 1450 Novastan Inj 250 MG In NS Inj 250 / 250 247.5 ML @ Per Protocol IV.CONT TITRATE PRN Rx#:[id number] 1/2 Normal Saline Inj 1,000 ML 1000 / 1000 1450 / 1450 @ 70 mls/hr IV.CONT .[id number] [facility] Rx#:[id number] Oral 340 / 340 Output: Urine 480 / 480 Other: # Voids 3 Date of Last Bowel Movement 01/28/18 # Bowel Movements 0 Laboratory Results - last 24 hr 01/29/18 01/29/18 01/29/18 05:44 05:44 05:44 WBC 12.5 H RBC 2.73 L Hgb 8.2 L Hct 24.7 L MCV 90.4 MCH 30.1 MCHC 33.3 RDW 17.5 H Plt Count 59 L MPV 8.2 Prelim Diff (Auto) Slide review pending Neut % (Auto) 68.3 Lymph % (Auto) 15.0 [place] % (Auto) 10.7 H Eos % (Auto) 5.5 H Baso % (Auto) 0.5 Neut # (Auto) 8.5 H Lymph # (Auto) 1.9 [place] # (Auto) 1.3 H Eos # (Auto) 0.7 H Baso # (Auto) 0.1 WBC Differential Manual diff final Seg Neuts % (Manual) 68 Band Neuts % (Manual) 1 Lymphocytes % (Manual) 18 Monocytes % (Manual) 4 Eosinophils % (Manual) 5 H Metamyelocytes % (Man) 3 H Myelocytes % (Man) 1 H Abs Neuts (Manual) 9.1 H Differential Comment . Platelet Estimate Low L Platelet Morphology Normal APTT 61.1 H Sodium 139 Potassium 3.8 Chloride 106 Carbon Dioxide 26.0 Anion Gap 7 BUN 18 Creatinine 1.64 H Estimated GFR 42 L Random Glucose 96 Calcium 8.1 L Total Bilirubin 0.5 AST 48 H ALT 32 Alkaline Phosphatase 65 Total Protein 5.7 L Albumin 1.9 L Microbiology 01/27/18 12:05 Aerobic Blood Culture - Preliminary Blood - Peripheral No growth in 2 days Anaerobic Blood Culture - Preliminary No growth in 2 days 01/27/18 12:00 Aerobic Blood Culture - Preliminary Blood - Peripheral No growth in 2 days Anaerobic Blood Culture - Preliminary No growth in 2 days
--- NOTE | 2018-01-29 15:54 | P.PNFP ---
Subjective Interval history: Patient was seen and evaluated this morning. He reports feeling great; "I haven' t felt this well in a while." Patient denies chest pain, heart palpitations, shortness of breath, nausea/vomiting, diarrhea and constipation. He denies lower extremity pain, weakness and numbness. He plans to shower and walk with PT today. Awaiting rise of platelet count above 100,000 to transition to oral anticoagulation. Patient hopes to go home by Monday. He prefers to go home rather than rehab. All questions were answered. <Miladys Sifuentes - 01/29/18 15:53> Results - Labs Result diagrams: 01/29/18 05:44 01/29/18 05:44 <Eliezer Duncan - 01/29/18 18:34> Abnormal lab results 01/29/18 01/29/18 01/29/18 Range/Units 05:44 05:44 05:44 WBC 12.5 H (4.0-11.0) th/mm3 RBC 2.73 L (4.50-5.90) mil/mm3 Hgb 8.2 L (13.0-17.0) gm/dL Hct 24.7 L (39.0-51.0) % RDW 17.5 H (11.6-17.2) % Plt Count 59 L (150-450) th/mm3 Troup % (Auto) 10.7 H (0.0-8.0) % Eos % (Auto) 5.5 H (0.0-4.0) % Neut # (Auto) 8.5 H (1.8-7.7) th/mm3 Troup # (Auto) 1.3 H (0.0-0.9) th/mm3 Eos # (Auto) 0.7 H (0.0-0.4) th/mm3 Eosinophils % (Manual) 5 H (0-4) % Metamyelocytes % (Man) 3 H (0-1) % Myelocytes % (Man) 1 H (0-0) % Abs Neuts (Manual) 9.1 H (1.8-7.7) th/mm3 Platelet Estimate Low L (Normal) APTT 61.1 H (24.3-30.1) sec Creatinine 1.64 H (0.60-1.30) mg/dL Estimated GFR 42 L (>89) mL/min Calcium 8.1 L (8.5-10.1) mg/dL AST 48 H (15-37) U/L Total Protein 5.7 L (6.4-8.2) g/dL Albumin 1.9 L (3.4-5.0) g/dL Short CBC 01/29/18 Range/Units 05:44 WBC 12.5 H (4.0-11.0) th/mm3 Hgb 8.2 L (13.0-17.0) gm/dL Hct 24.7 L (39.0-51.0) % Plt Count 59 L (150-450) th/mm3 BMP 01/29/18 05:44 Sodium 139 Potassium 3.8 Chloride 106 Carbon Dioxide 26.0 BUN 18 Creatinine 1.64 H Calcium 8.1 L Liver Function 01/29/18 Range/Units 05:44 Total Bilirubin 0.5 (0.2-1.0) mg/dL AST 48 H (15-37) U/L ALT 32 (12-78) U/L Alkaline Phosphatase 65 (45-117) U/L Albumin 1.9 L (3.4-5.0) g/dL <Young,Eliezer L - 01/29/18 18:34> Abnormal lab results 01/29/18 01/29/18 01/29/18 Range/Units 05:44 05:44 05:44 WBC 12.5 H (4.0-11.0) th/mm3 RBC 2.73 L (4.50-5.90) mil/mm3 Hgb 8.2 L (13.0-17.0) gm/dL Hct 24.7 L (39.0-51.0) % RDW 17.5 H (11.6-17.2) % Plt Count 59 L (150-450) th/mm3 Troup % (Auto) 10.7 H (0.0-8.0) % Eos % (Auto) 5.5 H (0.0-4.0) % Neut # (Auto) 8.5 H (1.8-7.7) th/mm3 Troup # (Auto) 1.3 H (0.0-0.9) th/mm3 Eos # (Auto) 0.7 H (0.0-0.4) th/mm3 Eosinophils % (Manual) 5 H (0-4) % Metamyelocytes % (Man) 3 H (0-1) % Myelocytes % (Man) 1 H (0-0) % Abs Neuts (Manual) 9.1 H (1.8-7.7) th/mm3 Platelet Estimate Low L (Normal) APTT 61.1 H (24.3-30.1) sec Creatinine 1.64 H (0.60-1.30) mg/dL Estimated GFR 42 L (>89) mL/min Calcium 8.1 L (8.5-10.1) mg/dL AST 48 H (15-37) U/L Total Protein 5.7 L (6.4-8.2) g/dL Albumin 1.9 L (3.4-5.0) g/dL Short CBC 01/29/18 Range/Units 05:44 WBC 12.5 H (4.0-11.0) th/mm3 Hgb 8.2 L (13.0-17.0) gm/dL Hct 24.7 L (39.0-51.0) % Plt Count 59 L (150-450) th/mm3 BMP 01/29/18 05:44 Sodium 139 Potassium 3.8 Chloride 106 Carbon Dioxide 26.0 BUN 18 Creatinine 1.64 H Calcium 8.1 L Liver Function 01/29/18 Range/Units 05:44 Total Bilirubin 0.5 (0.2-1.0) mg/dL AST 48 H (15-37) U/L ALT 32 (12-78) U/L Alkaline Phosphatase 65 (45-117) U/L Albumin 1.9 L (3.4-5.0) g/dL <Miladys Sifuentes - 01/29/18 15:53> - Imaging 2D Echo 01/18/18 EF 50-55%, with mild hypokinesis, LV dilation, tr-mild MR, mild to mod TR. <Miladys Sifuentes - 01/29/18 15:53> Physical Exam Vital signs: Vital Signs 01/28/18 20:00 01/29/18 00:00 01/29/18 08:00 Temperature 99.6 F 99.8 F H 98.5 F Pulse Rate 90 87 84 Respiratory Rate 20 20 17 Blood Pressure 116/59 L 112/57 L 125/68 Pulse Oximetry 96 94 L 96 01/29/18 12:00 01/29/18 16:00 01/29/18 16:22 Temperature 99.6 F 99.4 F Pulse Rate 85 79 Respiratory Rate 18 17 Blood Pressure 146/69 H 93/50 L Pulse Oximetry 97 96 97 Intake & Output 01/28/18 01/29/18 01/29/18 18:59 06:59 18:59 Intake Total 1000 / 1000 590 / 590 1450 / 1450 Output Total 480 / 480 600 / 600 Balance 1000 / 1000 110 / 110 850 / 850 Intake: IV 1000 / 1000 250 / 250 1450 / 1450 Novastan Inj 250 MG In NS Inj 250 / 250 247.5 ML @ Per Protocol IV.CONT TITRATE PRN Rx#:[id number] 1/2 Normal Saline Inj 1,000 ML 1000 / 1000 1450 / 1450 @ 70 mls/hr IV.CONT .[id number] [facility] Rx#:[id number] Oral 340 / 340 Output: Urine 480 / 480 600 / 600 Other: # Voids 3 Date of Last Bowel Movement 01/28/18 01/29/18 # Bowel Movements 0 1 <Eliezer Duncan L - 01/29/18 18:34> Vital Signs 01/28/18 16:00 01/28/18 20:00 01/29/18 00:00 Temperature 99.8 F H 99.6 F 99.8 F H Pulse Rate 88 90 87 Respiratory Rate 19 20 20 Blood Pressure 133/62 116/59 L 112/57 L Pulse Oximetry 99 96 94 L 01/29/18 08:00 01/29/18 12:00 Temperature 98.5 F 99.6 F Pulse Rate 84 85 Respiratory Rate 17 18 Blood Pressure 125/68 146/69 H Pulse Oximetry 96 97 <BearMiladys - 01/29/18 15:53> Narrative: GENERAL: Laying in bed, NAD. SKIN: Warm and dry. Incisions dry with no drainage. Ecchymotic region left anterior lower holland, nontender, no palpable cord or warmth. CARDIOVASCULAR: Regular rate and rhythm. 2/6 systolic ejection murmur present. RESPIRATORY: No accessory muscle use. Clear to auscultation. Breath sounds equal bilaterally with decreased breath sounds in bases bilaterally. No wheezes , crackles, rales. GASTROINTESTINAL: Normal bowel sounds. Abdomen soft, non-tender, nondistended. MUSCULOSKELETAL: Extremities warm to touch. No edema or cyanosis. NEUROLOGICAL: Awake and alert. Normal speech. CN II-XII grossly intact. PSYCHIATRIC: Appropriate mood and affect; insight and judgment normal. <Miladys Sifuentes - 01/29/18 15:53> - Urinary Catheter Management Indwelling Urethral Catheter Cath placed during this visit: no <Eliezer Duncan Michael - 01/29/18 18:34> yes, but has since been removed by the nurse <Miladys Sifuentes - 01/29/18 15:53> Reason for continuing: Decision to DC catheter <Miladys Sifuentes 01/29/18 15: 53> Insertion date: 01/25/18 <Miladys Sifuentes 01/29/18 15:53> Insertion time: 12:59 <Miladys Sifuentes - 01/29/18 15:53> Removal date: 01/26/18 <Miladys Sifuentes 01/29/18 15:53> Removal time: 17:00 <Miladys Sifuentes 01/29/18 15:53> Assessment and Plan - Assessment (1) SIRS (systemic inflammatory response syndrome) Code(s): R65.10 - Systemic inflammatory response syndrome (SIRS) of non- infectious origin without acute organ dysfunction Status: Resolved (2) Pain in both lower legs Code(s): M79.661 - Pain in right lower leg; M79.662 - Pain in left lower leg Status: Resolved (3) Heparin induced thrombocytopenia Code(s): D75.82 - Heparin induced thrombocytopenia (HIT) Status: Acute (4) Dysmetria Code(s): R27.8 - Other lack of coordination Status: Acute (5) Hypertension Code(s): I10 - Essential (primary) hypertension Status: Chronic (6) EVON (acute kidney injury) Code(s): N17.9 - Acute kidney failure, unspecified Status: Acute (7) Metastatic primary lung cancer Code(s): C34.90 - Malignant neoplasm of unspecified part of unspecified bronchus or lung Status: Chronic (8) Thrombosis of right saphenous vein Code(s): I82.811 - Embolism and thrombosis of superficial veins of right lower extremity Status: Acute (9) Anemia Code(s): D64.9 - Anemia, unspecified Status: Acute (10) Avascular necrosis of hip Code(s): M87.059 - Idiopathic aseptic necrosis of unspecified femur Status: Chronic (11) Atrial fibrillation Code(s): I48.91 - Unspecified atrial fibrillation Status: Acute (12) Nutrition, metabolism, and development symptoms Code(s): R63.8 - Other symptoms and signs concerning food and fluid intake Status: Acute <Eliezer Duncan - 01/29/18 18:34> (1) SIRS (systemic inflammatory response syndrome) Code(s): R65.10 - Systemic inflammatory response syndrome (SIRS) of non- infectious origin without acute organ dysfunction Status: Resolved Plan: Afebrile for 24hrs. No obvious source of infection, however inflammatory response could be related to malignancy vs thrombosis vs septic thrombophlebitis. Chest x-ray (01/20): Stable from admission. Chest x-ray (01/27): Stable, no acute process. Urinalysis (01/20): Negative leukocyte esterase and nitrite, large occult blood, 100 protein, rare bacteria. Urinalysis (01/27): 2 RBC, negative for infection. Blood cultures (01/21): No growth to date. Blood cultures (01/26): No growth to date. Antibiotic history: -Vancomycin (01/21-) -Cefepime 2g 24H () Monitor vitals, if new symptoms need to workup further and may need antibiotics. Tylenol PRN fevers. Continue incentive spirometry. Physical therapy, OOB. (2) Pain in both lower legs Code(s): M79.661 - Pain in right lower leg; M79.662 - Pain in left lower leg Status: Resolved Plan: Patient presented with worsening pain and weakness in bilateral legs. Upon further discussion with patient, had signs and symptoms of peripheral arterial disease. Also, with associated neuropathy and weakness upon admission. Aorta CTA shows severe atherosclerotic disease with severe narrowing of distal aorta, mural thrombus at level of distal aorta and infarction of the inferior right kidney MRI with no acute findings. Cervical MRI shows stenosis. Thoracic MRI with possible drop mets. Repeat thoracic MRI shows slight enhancement along spinal cord either nerve root enhancement or drop metastases. Lumbar MRI wnl. EEG wnl. CPK 520. Sacrum/Coccyx MRI: no acute plexus findings. 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 * Continue Lyrica 50mg BID. * Recommend LP, holding due to thrombocytopenia as well as anticoagulation; not candidate for chemo at this time. * EMG shows demyelinating sensory motor polyneuropathy. Vascular sa-gwoanqzdk-uwocwnatac recs. * Pt has changes of decrease blood flow in feet. Throwing embolic material distally. * Post-op 01/25/18 from axillobifemoral bypass along with coiling proximal ilial flow. Tolerated procedure well. Feet warm and normal cap refill. Heme/onc consulted * Treating HIT with argatroban. PT evaluating * Recommend home health. Pain management * Oxycodone 5mg q6H pain 1-10. * Morphine 1mg breakthrough pain. (3) Heparin induced thrombocytopenia Code(s): D75.82 - Heparin induced thrombocytopenia (HIT) Status: Acute Plan: Post-op from lobectomy and s/p heparin 9 days on admission. Heparin-induced thrombocytopenia antibody positive. Platelets improving today. No transfusion recommended at this time due to possibility of further coagulation. Hold all heparin forms. 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 * On argatroban gtt. * Once platelets>100, will then transition to Eliquis. (4) Dysmetria Code(s): R27.8 - Other lack of coordination Status: Acute Plan: Patient developed right upper extremity dysmetria after surgery. Has difficulty reaching object with his right hand when he goes to shake hands or reach for something. Sensation and pulses intact. MRI and MRA head without any acute change. Improving neuro function. Continue PT. Monitor symptoms. (5) Hypertension Code(s): I10 - Essential (primary) hypertension Status: Chronic Plan: Patient with BP up to 170s/70s post-op. Started on clonidine and nitro patch initially, d/c post-op. Monitor vitals Metoprolol 12.5mg BID. Clonidine PO PRN SBP>180. (6) EVON (acute kidney injury) Code(s): N17.9 - Acute kidney failure, unspecified Status: Acute Plan: Increasing serum creatinine during hospitalization. Admitted with Cr of 1.2. CMP from 06/28/17 with Cr of 0.95. Aortic CTA shows infarct of inferior pole of right kidney of unknown age. Cr stable. Monitor I/Os, urine output. Monitor BMP. Avoid nephrotoxic agents. Avoid further contrast studies if able. Renal consulted: * Suspect contrast nephrotoxicity. * Serum complements wnl; urine eosinophils negative. (7) Metastatic primary lung cancer Code(s): C34.90 - Malignant neoplasm of unspecified part of unspecified bronchus or lung Status: Chronic Plan: S/p chemo in November, s/p lobectomy. Recent PET scans negative. MRI spine shows possible mets. Repeat brain MRI with no acute change. Management per oncology team; discussing case with patients oncologist in [place] , Dr. Dillard. Regarding possible drop mets * Unsure of etiology at this time. Radiation oncology consulted * No therapy at this time due to low platelets. (8) Thrombosis of right saphenous vein Code(s): I82.811 - Embolism and thrombosis of superficial veins of right lower extremity Status: Acute Plan: Lower extremity superficial vein, generally benign and self-limited however a larger vein is involved in this case. Caution with propagation into the DVT system and PE possibility. Likely due to abnormal coagulation at this time. Elevation. Pain management. (9) Anemia Code(s): D64.9 - Anemia, unspecified Status: Acute Plan: No history of anemia per patient. Likely chronic anemia, patient at high risk for bleeding due to thrombocytopenia. Unsure of the exact cause, chemotherapy vs recent surgery vs chronic anemia. (10) Avascular necrosis of hip Code(s): M87.059 - Idiopathic aseptic necrosis of unspecified femur Status: Chronic Plan: MRI of sacrum revealed findings of avascular necrosis involving the right femoral head. No collapse. Patient reports chronic hip pain, nothing acute. Unsure etiology. Did receive IV steroids on 01/23. * Will hold further steroids at this time. * Continue to monitor. (11) Atrial fibrillation Code(s): I48.91 - Unspecified atrial fibrillation Status: Acute Plan: History of Afib. Controlled rate. Was diagnosed after previous surgery. 2/6 YANA murmur on exam, TR and MR seen on Echo. Echo shows EF of 50-55%, segmental wall motion abnormalities with hypokinesis. No episodes of Afib during admission; telemety d/c. Continue metoprolol. (12) Nutrition, metabolism, and development symptoms Code(s): R63.8 - Other symptoms and signs concerning food and fluid intake Status: Acute Plan: Fluids: * Tolerating PO. Electrolytes: * Monitor and replete as necessary. Nutrition: * Regular diet. DVT prophylaxis: Holding all heparin products, argatroban gtt. Incentive spirometry. <Eliseo Sifuentesin - 01/29/18 15:27> - Assessment and Plan 62 year old male with history of lung cancer with mets to brain, hypertension, atrial fibrillation presented on admission with bilateral leg pain/weakness. Admitted for workup. 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 Currently on argatroban gtt, awaiting improvement of platelets. Post-op from axillofemoral bypass with coiling. Pain and blood flow improved. Awaiting improvement of platelets for transition to oral anticoagulant. <BearMiladys - 01/29/18 15:53> Discussed Condition With: Drs. Duncan and Rg. <Miladys Sifuentes - 01/29/18 15:53> - Attending Attestation The exam, history, and the medical decision-making described in the above note were completed with the assistance of the resident physician. I reviewed and agree with the findings presented. I attest that I had a [id number] encounter with the patient on the same day, and personally performed and documented my assessment and findings in the medical record. I evaluated patient this afternoon independent of residents. Patient is new to me today so I spent the majority of time asking him about his history. Apparently has a history of lung cancer, stage 4, that was treated with lobectomy and a combination of chemotherapy and immunotherapy. Patient reports miraculous recovery, but unfortunately developed HIT with heparin before before being admitted with significant thrombocytopenia, and critical lower extremity peripheral arterial blockages and is status post axillo-femoral bypass with revascularization of the lower extremities. Plan is to have his platelets come back up over 100K so he can start anticoagulation, currently on argatroban drip for HIT. Has good pain control currently, neurovascularly intact in lower extremities. Has a very positive attitude. <Eliezer Duncan - 01/29/18 18:34> <Miladys Sifuentes - Last Filed: 01/29/18 15:27> (9) Anemia Qualifiers: Anemia type: bone marrow failure Bone marrow failure anemia type: pancytopenia, antineoplastic chemotherapy-induced Qualified Code(s): D61.810 - Antineoplastic chemotherapy induced pancytopenia; T45.1X5A - Adverse effect of antineoplastic and immunosuppressive drugs, initial encounter (10) Avascular necrosis of hip Qualifiers: Laterality: right Qualified Code(s): M87.051 - Idiopathic aseptic necrosis of right femur <Eliezer Duncan - Last Filed: 01/29/18 18:34> (9) Anemia Qualifiers: Anemia type: bone marrow failure Bone marrow failure anemia type: pancytopenia, antineoplastic chemotherapy-induced Qualified Code(s): D61.810 - Antineoplastic chemotherapy induced pancytopenia; T45.1X5A - Adverse effect of antineoplastic and immunosuppressive drugs, initial encounter (10) Avascular necrosis of hip Qualifiers: Laterality: right Qualified Code(s): M87.051 - Idiopathic aseptic necrosis of right femur <Miladys Sifuentes - Last Filed: 01/29/18 15:27> (9) Anemia Qualifiers: Anemia type: bone marrow failure Bone marrow failure anemia type: pancytopenia, antineoplastic chemotherapy-induced Qualified Code(s): D61.810 - Antineoplastic chemotherapy induced pancytopenia; T45.1X5A - Adverse effect of antineoplastic and immunosuppressive drugs, initial encounter (10) Avascular necrosis of hip Qualifiers: Laterality: right Qualified Code(s): M87.051 - Idiopathic aseptic necrosis of right femur <Eliezer Duncan - Last Filed: 01/29/18 18:34> (9) Anemia Qualifiers: Anemia type: bone marrow failure Bone marrow failure anemia type: pancytopenia, antineoplastic chemotherapy-induced Qualified Code(s): D61.810 - Antineoplastic chemotherapy induced pancytopenia; T45.1X5A - Adverse effect of antineoplastic and immunosuppressive drugs, initial encounter (10) Avascular necrosis of hip Qualifiers: Laterality: right Qualified Code(s): M87.051 - Idiopathic aseptic necrosis of right femur
[2018-01-29] MEDS: Temazepam 15 MG Capsule PO PRN (20:32)
[2018-01-30] MEDS: Argatroban Inj 250 MG in Sodium Chlor 0.9% Inj 247.5 ML IV.CONT PRN (04:30)
[2018-01-30 07:39] LABS: Hemoglobin 8.3 gm/dL (13.0-17.0); Mean Corpuscular HGB Conc 34.4 % (32.0-36.0); Mean Corpuscular Hemoglobin 30.6 pg (27.0-34.0); Mean Corpuscular Volume 88.9 fL (80.0-100.0); Mean Platelet Volume 8.5 fL (7.0-11.0); Platelet Count 67 th/mm3 (150-450); Red Cell Distribution Width 17.7 % (11.6-17.2); White Blood Count 9.2 th/mm3 (4.0-11.0)
[2018-01-30 08:00] LABS: Albumin 2.1 g/dL (3.4-5.0); Calcium 8.1 mg/dL (8.5-10.1); Carbon Dioxide 27.9 meq/L (21.0-32.0); Potassium 4.3 meq/L (3.5-5.1)
[2018-01-30] MEDS: Folic Acid 1 MG Tablet PO SCH (08:22)
[2018-01-30] MEDS: Metoprolol Tartrate 25 MG Tablet PO SCH ×2 (08:22→20:56)
[2018-01-30] MEDS: Budesonide-Formoterol 160/4.5 MCG 6 GM Inhaler INH SCH (08:23)
[2018-01-30] MEDS: Pregabalin 25 MG Capsule PO SCH ×2 (08:23→20:56)
--- NOTE | 2018-01-30 10:19 | P.PNFP ---
Subjective Interval history: Patient was seen and evaluated this morning. He reports feeling well. Patient denies chest pain, heart palpitations, shortness of breath, nausea/vomiting, diarrhea and constipation. He denies lower extremity pain, weakness and numbness. He plans to work with PT today. Awaiting rise of platelet count above 100,000 to transition to oral anticoagulation. Patient hopes to go home by Monday. He prefers to go home rather than rehab. <Miladys Sifuentes - 01/30/18 11:07> Results - Labs Result diagrams: 01/30/18 07:04 01/30/18 07:04 <Eliezer Duncan - 01/30/18 11:16> Abnormal lab results 01/30/18 01/30/18 Range/Units 07:04 07:04 RBC 2.70 L (4.50-5.90) mil/mm3 Hgb 8.3 L (13.0-17.0) gm/dL Hct 24.0 L (39.0-51.0) % RDW 17.7 H (11.6-17.2) % Plt Count 67 L (150-450) th/mm3 Creatinine 1.77 H (0.60-1.30) mg/dL Estimated GFR 39 L (>89) mL/min Calcium 8.1 L (8.5-10.1) mg/dL Albumin 2.1 L (3.4-5.0) g/dL Short CBC 01/30/18 Range/Units 07:04 WBC 9.2 (4.0-11.0) th/mm3 Hgb 8.3 L (13.0-17.0) gm/dL Hct 24.0 L (39.0-51.0) % Plt Count 67 L (150-450) th/mm3 BMP 01/30/18 07:04 Sodium 141 Potassium 4.3 Chloride 104 Carbon Dioxide 27.9 BUN 16 Creatinine 1.77 H Calcium 8.1 L Liver Function 01/30/18 Range/Units 07:04 Albumin 2.1 L (3.4-5.0) g/dL <Eliezer Duncan - 01/30/18 11:16> Abnormal lab results 01/30/18 01/30/18 Range/Units 07:04 07:04 RBC 2.70 L (4.50-5.90) mil/mm3 Hgb 8.3 L (13.0-17.0) gm/dL Hct 24.0 L (39.0-51.0) % RDW 17.7 H (11.6-17.2) % Plt Count 67 L (150-450) th/mm3 Creatinine 1.77 H (0.60-1.30) mg/dL Estimated GFR 39 L (>89) mL/min Calcium 8.1 L (8.5-10.1) mg/dL Albumin 2.1 L (3.4-5.0) g/dL Short CBC 01/30/18 Range/Units 07:04 WBC 9.2 (4.0-11.0) th/mm3 Hgb 8.3 L (13.0-17.0) gm/dL Hct 24.0 L (39.0-51.0) % Plt Count 67 L (150-450) th/mm3 BMP 01/30/18 07:04 Sodium 141 Potassium 4.3 Chloride 104 Carbon Dioxide 27.9 BUN 16 Creatinine 1.77 H Calcium 8.1 L Liver Function 01/30/18 Range/Units 07:04 Albumin 2.1 L (3.4-5.0) g/dL <LabelEliseo jolleyin - 01/30/18 11:07> Physical Exam Vital signs: Vital Signs 01/29/18 12:00 01/29/18 16:00 01/29/18 16:22 Temperature 99.6 F 99.4 F Pulse Rate 85 79 Respiratory Rate 18 17 Blood Pressure 146/69 H 93/50 L Pulse Oximetry 97 96 97 01/29/18 20:00 01/30/18 00:00 01/30/18 00:04 Temperature 98.1 F 99 F Pulse Rate 84 90 Respiratory Rate 17 17 18 Blood Pressure 122/55 L 116/62 Pulse Oximetry 93 L 97 01/30/18 04:00 01/30/18 06:47 01/30/18 07:55 Temperature 99 F 98.2 F Pulse Rate 96 H 87 Respiratory Rate 17 18 16 Blood Pressure 143/66 H 120/60 Pulse Oximetry 95 95 Intake & Output 01/29/18 01/30/18 01/30/18 18:59 06:59 18:59 Intake Total 1450 / 1450 730 / 730 Output Total 600 / 600 1000 / 1000 Balance 850 / 850 -270 / -270 Weight 73.4 kg Intake: IV 1450 / 1450 250 / 250 Novastan Inj 250 MG In NS Inj 250 / 250 247.5 ML @ Per Protocol IV.CONT TITRATE PRN Rx#:[id number] 1/2 Normal Saline Inj 1,000 ML 1450 / 1450 @ 70 mls/hr IV.CONT .[id number] [facility] Rx#:[id number] Oral 480 / 480 Output: Urine 600 / 600 1000 / 1000 Other: Date of Last Bowel Movement 01/29/18 01/29/18 # Bowel Movements 1 <Eliezer Duncan Michael - 01/30/18 11:16> Vital Signs 01/29/18 12:00 01/29/18 16:00 01/29/18 16:22 Temperature 99.6 F 99.4 F Pulse Rate 85 79 Respiratory Rate 18 17 Blood Pressure 146/69 H 93/50 L Pulse Oximetry 97 96 97 01/29/18 20:00 01/30/18 00:00 01/30/18 00:04 Temperature 98.1 F 99 F Pulse Rate 84 90 Respiratory Rate 17 17 18 Blood Pressure 122/55 L 116/62 Pulse Oximetry 93 L 97 01/30/18 04:00 01/30/18 06:47 01/30/18 07:55 Temperature 99 F 98.2 F Pulse Rate 96 H 87 Respiratory Rate 17 18 16 Blood Pressure 143/66 H 120/60 Pulse Oximetry 95 95 <Miladys Sifuentes - 01/30/18 11:07> Narrative: GENERAL: Sitting up in chair, NAD. SKIN: Warm and dry. Incisions dry with no drainage. Ecchymotic region left anterior lower holland, nontender, no palpable cord or warmth - improved. CARDIOVASCULAR: Regular rate and rhythm. 2/6 systolic ejection murmur present. RESPIRATORY: No accessory muscle use. Clear to auscultation. Breath sounds equal bilaterally with decreased breath sounds in bases bilaterally. No wheezes , crackles, rales. GASTROINTESTINAL: Normal bowel sounds. Abdomen soft, non-tender, nondistended. MUSCULOSKELETAL: Extremities warm to touch. No edema or cyanosis. NEUROLOGICAL: Awake and alert. Normal speech. CN II-XII grossly intact. PSYCHIATRIC: Appropriate mood and affect; insight and judgment normal. <Miladys Sifuentes - 01/30/18 11:07> - Urinary Catheter Management Indwelling Urethral Catheter Cath placed during this visit: no <Eliezer Duncan - 01/30/18 11:16> yes, but has since been removed by the nurse <Miladys Sifuentes - 01/30/18 11:07> Reason for continuing: Decision to DC catheter <Miladys Sifuentes - 01/30/18 10: 18> Insertion date: 01/25/18 <Miladys Sifuentes - 01/30/18 10:18> Insertion time: 12:59 <Miladys Sifuentes - 01/30/18 10:18> Removal date: 01/26/18 <Miladys Sifuentes - 01/30/18 10:18> Removal time: 17:00 <Miladys Sifuentes - 01/30/18 10:18> Assessment and Plan - Assessment (1) SIRS (systemic inflammatory response syndrome) Code(s): R65.10 - Systemic inflammatory response syndrome (SIRS) of non- infectious origin without acute organ dysfunction Status: Resolved (2) Pain in both lower legs Code(s): M79.661 - Pain in right lower leg; M79.662 - Pain in left lower leg Status: Resolved (3) Heparin induced thrombocytopenia Code(s): D75.82 - Heparin induced thrombocytopenia (HIT) Status: Acute (4) Dysmetria Code(s): R27.8 - Other lack of coordination Status: Acute (5) Hypertension Code(s): I10 - Essential (primary) hypertension Status: Chronic (6) EVON (acute kidney injury) Code(s): N17.9 - Acute kidney failure, unspecified Status: Acute (7) Metastatic primary lung cancer Code(s): C34.90 - Malignant neoplasm of unspecified part of unspecified bronchus or lung Status: Chronic (8) Thrombosis of right saphenous vein Code(s): I82.811 - Embolism and thrombosis of superficial veins of right lower extremity Status: Acute (9) Anemia Code(s): D64.9 - Anemia, unspecified Status: Acute (10) Avascular necrosis of hip Code(s): M87.059 - Idiopathic aseptic necrosis of unspecified femur Status: Chronic (11) Atrial fibrillation Code(s): I48.91 - Unspecified atrial fibrillation Status: Acute (12) Nutrition, metabolism, and development symptoms Code(s): R63.8 - Other symptoms and signs concerning food and fluid intake Status: Acute <Eliezer Duncan - 01/30/18 11:16> (1) SIRS (systemic inflammatory response syndrome) Code(s): R65.10 - Systemic inflammatory response syndrome (SIRS) of non- infectious origin without acute organ dysfunction Status: Resolved Plan: Afebrile since 01/28 at 00:00. No obvious source of infection, however inflammatory response could be related to malignancy vs thrombosis vs septic thrombophlebitis. Chest x-ray (01/20): Stable from admission. Chest x-ray (01/27): Stable, no acute process. Urinalysis (01/20): Negative leukocyte esterase and nitrite, large occult blood, 100 protein, rare bacteria. Urinalysis (01/27): 2 RBC, negative for infection. Blood cultures (01/21): No growth to date. Blood cultures (01/26): No growth to date. Antibiotic history: -Vancomycin () -Cefepime 2g 24H () Monitor vitals, if new symptoms need to workup further and may need antibiotics. Tylenol PRN fevers. Continue incentive spirometry. Physical therapy, OOB. (2) Pain in both lower legs Code(s): M79.661 - Pain in right lower leg; M79.662 - Pain in left lower leg Status: Resolved Plan: Patient presented with worsening pain and weakness in bilateral legs. Upon further discussion with patient, had signs and symptoms of peripheral arterial disease. Also, with associated neuropathy and weakness upon admission. Aorta CTA shows severe atherosclerotic disease with severe narrowing of distal aorta, mural thrombus at level of distal aorta and infarction of the inferior right kidney MRI with no acute findings. Cervical MRI shows stenosis. Thoracic MRI with possible drop mets. Repeat thoracic MRI shows slight enhancement along spinal cord either nerve root enhancement or drop metastases. Lumbar MRI wnl. EEG wnl. CPK 520. Sacrum/Coccyx MRI: no acute plexus findings. 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 * Continue Lyrica 50mg BID. * Recommend LP, holding due to thrombocytopenia as well as anticoagulation; not candidate for chemo at this time. * Patient is not interested in having LP during this hospitalization. * EMG shows demyelinating sensory motor polyneuropathy. Vascular [id number] recs. * Pt has changes of decrease blood flow in feet. Throwing embolic material distally. * Post-op 01/25/18 from axillobifemoral bypass along with coiling proximal ilial flow. Tolerated procedure well. Feet warm and normal cap refill. Heme/onc consulted. * Treating HIT with argatroban. PT evaluating. * Recommend home health. Pain management: * Oxycodone 5mg q6H pain 1-10. * Morphine 1mg breakthrough pain. (3) Heparin induced thrombocytopenia Code(s): D75.82 - Heparin induced thrombocytopenia (HIT) Status: Acute Plan: Post-op from lobectomy and s/p heparin 9 days on admission. Heparin-induced thrombocytopenia antibody positive. Platelets improving today. No transfusion recommended at this time due to possibility of further coagulation. Hold all heparin forms. 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 * On argatroban gtt. * Once platelets>100, will then transition to Eliquis. (4) Dysmetria Code(s): R27.8 - Other lack of coordination Status: Acute Plan: Patient developed right upper extremity dysmetria after surgery. Has difficulty reaching object with his right hand when he goes to shake hands or reach for something. Sensation and pulses intact. MRI and MRA head without any acute change. Improving neuro function. Continue PT. Monitor symptoms. (5) Hypertension Code(s): I10 - Essential (primary) hypertension Status: Chronic Plan: Patient with BP up to 170s/70s post-op. Started on clonidine and nitro patch initially, d/c post-op. Monitor vitals Metoprolol 12.5mg BID. Clonidine PO PRN SBP>180. (6) EVON (acute kidney injury) Code(s): N17.9 - Acute kidney failure, unspecified Status: Acute Plan: Increasing serum creatinine during hospitalization. Admitted with Cr of 1.2. CMP from 06/28/17 with Cr of 0.95. Aortic CTA shows infarct of inferior pole of right kidney of unknown age. Cr stable. Monitor I/Os, urine output. Monitor BMP. Avoid nephrotoxic agents. Avoid further contrast studies if able. Renal consulted: * Suspect contrast nephrotoxicity. * Serum complements wnl; urine eosinophils negative. (7) Metastatic primary lung cancer Code(s): C34.90 - Malignant neoplasm of unspecified part of unspecified bronchus or lung Status: Chronic Plan: S/p chemo in November, s/p lobectomy. Recent PET scans negative. MRI spine shows possible mets. Repeat brain MRI with no acute change. Management per oncology team; discussing case with patients oncologist in [place] , Dr. Dillard. Regarding possible drop mets * Unsure of etiology at this time. Radiation oncology consulted * No therapy at this time due to low platelets. (8) Thrombosis of right saphenous vein Code(s): I82.811 - Embolism and thrombosis of superficial veins of right lower extremity Status: Acute Plan: Lower extremity superficial vein, generally benign and self-limited however a larger vein is involved in this case. Caution with propagation into the DVT system and PE possibility. Likely due to abnormal coagulation at this time. Elevation. Pain management. (9) Anemia Code(s): D64.9 - Anemia, unspecified Status: Acute Plan: No history of anemia per patient. Likely chronic anemia, patient at high risk for bleeding due to thrombocytopenia. Unsure of the exact cause, chemotherapy vs recent surgery vs chronic anemia. (10) Avascular necrosis of hip Code(s): M87.059 - Idiopathic aseptic necrosis of unspecified femur Status: Chronic Plan: MRI of sacrum revealed findings of avascular necrosis involving the right femoral head. No collapse. Patient reports chronic hip pain, nothing acute. Unsure etiology. Did receive IV steroids on 01/23. * Will hold further steroids at this time. * Continue to monitor. (11) Atrial fibrillation Code(s): I48.91 - Unspecified atrial fibrillation Status: Acute Plan: History of Afib. Controlled rate. Was diagnosed after previous surgery. 2/6 YANA murmur on exam, TR and MR seen on Echo. Echo shows EF of 50-55%, segmental wall motion abnormalities with hypokinesis. No episodes of Afib during admission; telemety d/c. Continue metoprolol. (12) Nutrition, metabolism, and development symptoms Code(s): R63.8 - Other symptoms and signs concerning food and fluid intake Status: Acute Plan: Fluids: * Tolerating PO. Electrolytes: * Monitor and replete as necessary. Nutrition: * Regular diet. DVT prophylaxis: Holding all heparin products, argatroban gtt. Incentive spirometry. <Miladys Sifuentes - 01/30/18 10:59> - Assessment and Plan 62 year old male with history of lung cancer with mets to brain, hypertension, atrial fibrillation presented on admission with bilateral leg pain/weakness. Admitted for workup. 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 Currently on argatroban gtt, awaiting improvement of platelets. Post-op from axillofemoral bypass with coiling. Pain and blood flow improved. Awaiting improvement of platelets for transition to oral anticoagulant. <Miladys Sifuentes - 01/30/18 11:07> Discussed Condition With: Drs. Duncan and Rg. <Miladys Sifuentes - 01/30/18 11:07> - Attending Attestation The exam, history, and the medical decision-making described in the above note were completed with the assistance of the resident physician. I reviewed and agree with the findings presented. I attest that I had a [id number] encounter with the patient on the same day, and personally performed and documented my assessment and findings in the medical record. Patient seen and examined on rounds with resident team this morning. at bedside. Patient reports feeling great this morning. No complaints of pain this morning. He is eager to have his platelets above 100K (they continue to rise after HIT with argatroban drip) so that he can be restarted on anticoagulation. He is eager to get back home. <Eliezer Duncan - 01/30/18 11:16> <Miladys Sifuentes - Last Filed: 01/30/18 10:59> (9) Anemia Qualifiers: Anemia type: bone marrow failure Bone marrow failure anemia type: pancytopenia, antineoplastic chemotherapy-induced Qualified Code(s): D61.810 - Antineoplastic chemotherapy induced pancytopenia; T45.1X5A - Adverse effect of antineoplastic and immunosuppressive drugs, initial encounter (10) Avascular necrosis of hip Qualifiers: Laterality: right Qualified Code(s): M87.051 - Idiopathic aseptic necrosis of right femur <Eliezer Duncan - Last Filed: 01/30/18 11:16> (9) Anemia Qualifiers: Anemia type: bone marrow failure Bone marrow failure anemia type: pancytopenia, antineoplastic chemotherapy-induced Qualified Code(s): D61.810 - Antineoplastic chemotherapy induced pancytopenia; T45.1X5A - Adverse effect of antineoplastic and immunosuppressive drugs, initial encounter (10) Avascular necrosis of hip Qualifiers: Laterality: right Qualified Code(s): M87.051 - Idiopathic aseptic necrosis of right femur <FelisaEliseo jolleyin - Last Filed: 01/30/18 10:59> (9) Anemia Qualifiers: Anemia type: bone marrow failure Bone marrow failure anemia type: pancytopenia, antineoplastic chemotherapy-induced Qualified Code(s): D61.810 - Antineoplastic chemotherapy induced pancytopenia; T45.1X5A - Adverse effect of antineoplastic and immunosuppressive drugs, initial encounter (10) Avascular necrosis of hip Qualifiers: Laterality: right Qualified Code(s): M87.051 - Idiopathic aseptic necrosis of right femur <Eliezer Duncan - Last Filed: 01/30/18 11:16> (9) Anemia Qualifiers: Anemia type: bone marrow failure Bone marrow failure anemia type: pancytopenia, antineoplastic chemotherapy-induced Qualified Code(s): D61.810 - Antineoplastic chemotherapy induced pancytopenia; T45.1X5A - Adverse effect of antineoplastic and immunosuppressive drugs, initial encounter (10) Avascular necrosis of hip Qualifiers: Laterality: right Qualified Code(s): M87.051 - Idiopathic aseptic necrosis of right femur
--- NOTE | 2018-01-30 12:03 | P.PNONC ---
Subjective Interval history: Afebrile. Patient continues on argatroban drip. Denies any bleeding. Patient reports he was able to walk in the hallway yesterday. He tolerated well. He feels the occasional tingling in his feet, however denies any pain. Objective Vital Signs/Intake & Output: Vital Signs 01/29/18 12:00 01/29/18 16:00 01/29/18 16:22 Temperature 99.6 F 99.4 F Pulse Rate 85 79 Respiratory Rate 18 17 Blood Pressure 146/69 H 93/50 L Pulse Oximetry 97 96 97 01/29/18 20:00 01/30/18 00:00 01/30/18 00:04 Temperature 98.1 F 99 F Pulse Rate 84 90 Respiratory Rate 17 17 18 Blood Pressure 122/55 L 116/62 Pulse Oximetry 93 L 97 01/30/18 04:00 01/30/18 06:47 01/30/18 07:55 Temperature 99 F 98.2 F Pulse Rate 96 H 87 Respiratory Rate 17 18 16 Blood Pressure 143/66 H 120/60 Pulse Oximetry 95 95 Intake & Output 01/29/18 01/30/18 01/30/18 18:59 06:59 18:59 Intake Total 1450 / 1450 730 / 730 Output Total 600 / 600 1000 / 1000 Balance 850 / 850 -270 / -270 Weight 73.4 kg Intake: IV 1450 / 1450 250 / 250 Novastan Inj 250 MG In NS Inj 250 / 250 247.5 ML @ Per Protocol IV.CONT TITRATE PRN Rx#:[id number] 1/2 Normal Saline Inj 1,000 ML 1450 / 1450 @ 70 mls/hr IV.CONT .[id number] [facility] Rx#:[id number] Oral 480 / 480 Output: Urine 600 / 600 1000 / 1000 Other: Date of Last Bowel Movement 01/29/18 01/29/18 # Bowel Movements 1 Result Diagrams: 01/30/18 07:04 01/30/18 07:04 Laboratory Results: Laboratory Results - last 24 hr 01/30/18 01/30/18 07:04 07:04 WBC 9.2 RBC 2.70 L Hgb 8.3 L Hct 24.0 L MCV 88.9 MCH 30.6 MCHC 34.4 RDW 17.7 H Plt Count 67 L MPV 8.5 Sodium 141 Potassium 4.3 Chloride 104 Carbon Dioxide 27.9 Anion Gap 9 BUN 16 Creatinine 1.77 H Estimated GFR 39 L Random Glucose 97 Calcium 8.1 L Phosphorus 3.0 Albumin 2.1 L Culture Results: Microbiology 01/27/18 12:05 Aerobic Blood Culture - Preliminary Blood - Peripheral No growth in 3 days Anaerobic Blood Culture - Preliminary No growth in 3 days 01/27/18 12:00 Aerobic Blood Culture - Preliminary Blood - Peripheral No growth in 3 days Anaerobic Blood Culture - Preliminary No growth in 3 days Medications: Active Medications Generic Name Dose Route Start Last Admin Trade Name Freq PRN Reason Stop Dose Admin Acetaminophen 650 mg 01/27/18 08:52 01/29/18 14:19 Tylenol PO 650 mg Q4H PRN Administration Temp > 100.4 Al Hydroxide/Mg Hydroxide 30 ml 01/17/18 14:19 01/23/18 20:34 Milk Of Magnesia Liq PO 30 ml Q12H PRN Administration Mild Constipation Budesonide/Formoterol Fumarate 2 puff 01/17/18 14:00 01/30/18 08:23 Symbicort 160/4.5 Mcg Inh INH 2 puff BID SHAVONNE Administration Folic Acid 1 mg 01/17/18 13:45 01/30/18 08:22 Folic Acid PO 1 mg DAILY SHAVONNE Administration Argatroban 250 mg/ Sodium 250 mls @ 0 mls/hr 01/18/18 15:00 01/30/18 04:30 Chloride IV.CONT 2.12 mcg/kg/min TITRATE PRN 8.8 mls/hr Per Protocol Administration Protocol Per Protocol Metoprolol Tartrate 12.5 mg 01/28/18 09:00 01/30/18 08:22 Lopressor PO 12.5 mg BID SHAVONNE Administration Morphine Sulfate 1 mg 01/26/18 10:08 01/28/18 18:24 Morphine Inj IV.PUSH 1 mg Q6HR PRN Administration PAIN 6-10;IF UNABLE TO TAKE PO Oxycodone HCl 5 mg 01/28/18 18:50 01/30/18 06:17 Roxicodone PO 5 mg Q6H PRN Administration PAIN SCALE 1 TO 10 Pantoprazole Sodium 40 mg 01/17/18 14:00 01/30/18 08:22 Protonix PO 40 mg DAILY SHAVONNE Administration Pregabalin 50 mg 01/27/18 11:30 01/30/18 08:23 Lyrica PO 50 mg BID SHAVONNE Administration Sennosides 17.2 mg 01/17/18 14:08 01/21/18 22:30 Senokot PO 17.2 mg Q12H PRN Administration Moderate Constipation Sodium Chloride 2 ml 01/17/18 11:17 01/20/18 20:43 Ns Flush IV.FLUSH 2 ml PRN PRN Administration FLUSH AFTER USING IV ACCESS Temazepam 15 mg 01/17/18 21:00 01/29/18 20:32 Restoril PO 15 mg HS PRN Administration INSOMNIA Objective Remarks: GENERAL: Middle-aged male patient, sitting upright in bed, in no acute distress. SKIN: Warm and dry. Petechiae to left lateral calf. HEAD: Normocephalic. EYES: No scleral icterus. No injection or drainage. NECK: Supple, trachea midline. CARDIOVASCULAR: +S1/S2 without murmurs. RESPIRATORY: Anterior breath sounds clear, non-labored. GASTROINTESTINAL: Abdomen soft, non-tender, nondistended. EXTREMITIES: No cyanosis or edema. Feet/toes warm to touch. Rubor tips of toes. MUSCULOSKELETAL: Adequate muscle tone. NEUROLOGICAL: No obvious focal deficit. Awake, alert, and oriented x3. 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 Bernstein is a pleasant 62-year-old gentleman with a history of non-small cell lung cancer with brain metastasis, status post craniotomy with resection followed by stereotactic radiosurgery with gamma knife, 3-4 cycles of preop Immunochemotherapy with 2 doses of Platinol and Alimta he also underwent thoracotomy and resection of the left upper lobe and wedge resection of the left lower lobe on 01/01/2018. Patient had minimal residual disease of 0.6 cm and also the lymph nodes were negative. Margins were also negative. During this admission the patient was found to have severe thrombocytopenia. Patient did have recent exposure to subcutaneous heparin after his recent surgery. Plan: 1. Continue Argatroban drip, platelets today 67k. Once platelets are greater than 100,000 we can bridge argatroban to oral anticoagulant. 2. Afebrile times 48 hours. Blood cultures with no growth. 3. Continue to monitor for bleeding. 4. Continue supportive care. - Attending Statement The exam, history, and the medical decision-making described in the above note were completed with the assistance of the mid-level provider. I reviewed and agree with the findings presented. I attest that I had a [id number] encounter with the patient on the same day, and personally performed and documented my assessment and findings in the medical record. able to walk in the hallway with no problems denies pain in the legs Plat are coming up. Continue argatroban. d/w pt, and family.
--- NOTE | 2018-01-30 12:56 | P.PNNP ---
Subjective Interval history: Pt feeling well today. and friend at bedside. <Puja Martinez - Last Filed: 01/30/18 12:54> Physical Exam Vital signs: Vital Signs 01/29/18 16:00 01/29/18 16:22 01/29/18 20:00 Temperature 99.4 F 98.1 F Pulse Rate 79 84 Respiratory Rate 17 17 Blood Pressure 93/50 L 122/55 L Pulse Oximetry 96 97 93 L 01/30/18 00:00 01/30/18 00:04 01/30/18 04:00 Temperature 99 F 99 F Pulse Rate 90 96 H Respiratory Rate 17 18 17 Blood Pressure 116/62 143/66 H Pulse Oximetry 97 95 01/30/18 06:47 01/30/18 07:55 Temperature 98.2 F Pulse Rate 87 Respiratory Rate 18 16 Blood Pressure 120/60 Pulse Oximetry 95 Intake & Output 01/29/18 01/30/18 01/30/18 18:59 06:59 18:59 Intake Total 1450 / 1450 730 / 730 Output Total 600 / 600 1000 / 1000 Balance 850 / 850 -270 / -270 Weight 73.4 kg Intake: IV 1450 / 1450 250 / 250 Novastan Inj 250 MG In NS Inj 250 / 250 247.5 ML @ Per Protocol IV.CONT TITRATE PRN Rx#:[id number] 1/2 Normal Saline Inj 1,000 ML 1450 / 1450 @ 70 mls/hr IV.CONT .[id number] SHAVONNE Rx#:[id number] Oral 480 / 480 Output: Urine 600 / 600 1000 / 1000 Other: Date of Last Bowel Movement 01/29/18 01/29/18 # Bowel Movements 1 - Constitutional no acute distress - Routine HEENT Exam Head: Present: normocephalic - Routine Neck Exam Present: supple - Routine Respiratory Exam Present: CTA bilaterally - Routine Cardiovascular Exam Present: RRR, S1, S2 - Routine Abdominal Exam Present: soft - Routine Extremities Exam Absent: edema - Routine Skin Exam Present: intact - Routine Neurological Exam Present: alert, oriented X3 - Routine Psychiatric Exam Present: normal affect, normal thought process - Urinary Catheter Management Indwelling Urethral Catheter Cath placed during this visit: yes, but has since been removed by the nurse Reason for continuing: Decision to DC catheter Insertion date: 01/25/18 Insertion time: 12:59 Removal date: 01/26/18 Removal time: 17:00 <MartinezPuja acosta Bradley - Last Filed: 01/30/18 12:54> Vital signs: Vital Signs 01/30/18 20:00 01/31/18 00:00 01/31/18 08:00 Temperature 98.7 F 98.2 F 98.7 F Pulse Rate 84 80 82 Respiratory Rate 18 18 16 Blood Pressure 117/63 123/66 143/64 H Pulse Oximetry 96 95 97 01/31/18 12:00 01/31/18 16:00 Temperature 97.9 F 98.5 F Pulse Rate 78 78 Respiratory Rate 16 17 Blood Pressure 111/55 L 127/69 Pulse Oximetry 98 97 Intake & Output 01/30/18 01/31/18 01/31/18 18:59 06:59 18:59 Intake Total 640 / 640 550 / 550 1151 / 1151 Output Total 750 / 750 1775 / 1775 Balance -110 / -110 -1225 / -1225 1151 / 1151 Weight 71 kg Intake: IV 550 / 550 151 / 151 Novastan Inj 250 MG In NS Inj 151 / 151 247.5 ML @ Per Protocol IV.CONT TITRATE PRN Rx#:[id number] Oral 640 / 640 1000 / 1000 Output: Urine 750 / 750 1775 / 1775 Other: # Voids 800 Date of Last Bowel Movement 01/29/18 # Bowel Movements 0 1 - Urinary Catheter Management Indwelling Urethral Catheter Cath placed during this visit: no <Samy Silver - Last Filed: 01/31/18 17:31> Assessment and Plan - Assessment (1) EVON (acute kidney injury) Code(s): N17.9 - Acute kidney failure, unspecified Status: Acute Plan: Patient likely has developed some degree of contrast nephrotoxicity post CTA. Patient also has evidence of renal infarct involving the lower pole of the right kidney. Unfortunately cannot be certain as to the timing of the event. 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 Also mention of atrial fibrillation and a history. Potential for pre-existing renal insufficiency related to chemotherapy from [facility] as admitting SCr at 1.2. SCr deteriorated slightly, but may be his new baseline as discussed with he and his . He was encouraged to keep up with fluid intake. Repeat renal panel tomorrow. Medications should be adjusted for the patient's estimated GFR if clinically indicated. Avoid agents with significant potential for nephrotoxicity possible including NSAIDs for analgesia, iodine contrast agents. Gadolinium is contraindicated if the GFR is below 30. (2) Renal infarction Code(s): N28.0 - Ischemia and infarction of kidney Status: Acute Plan: Risk factors as described above for renal infarction. Timing of infarction uncertain and it may have been subacute or chronic in nature. Patient already on anticoagulation. No new recommendations from my point of view in regard to management of same. <Puja Martinez - Last Filed: 01/30/18 12:54> - Assessment (1) EVON (acute kidney injury) Code(s): N17.9 - Acute kidney failure, unspecified Status: Acute (2) Renal infarction Code(s): N28.0 - Ischemia and infarction of kidney Status: Acute - Attending Attestation The exam, history, and the medical decision-making described in the above note were completed with the assistance of the KEM. I reviewed and agree with the findings presented. <Samy Silver - Last Filed: 01/31/18 17:31>
[2018-01-30] MEDS: Temazepam 15 MG Capsule PO PRN (20:56)
--- NOTE | 2018-01-30 21:39 | P.PNVS ---
Subjective Subjective/Hospital Course: Patient seen and full consult dictated We will follow Thanks J 01/24/[address] Veras, interventional radiology and we jointly examined the patient and spoke to the and the patient. For details refer to my original consult from last week. On physical exam patient has more prominent changes as far as the decrease in blood flow in both feet. He still has dopplerable femoral and popliteal pulses as well as weak dorsalis pedis posterior tibial on the left and only posterior tibial on the right. In comparison to last week and this Monday, indeed toes are more dusky appearing with some cyanotic hue especially the right foot. Capillary refill is quite decreased at this time. There is no question that patient is throwing embolic material and showering microthrombi and micro emboli distally. Renal function is somewhat improved which is helpful and platelet count is slowly rising. This is a very complex situation and remedies are limited Patient is not a candidate for aortobifemoral bypass for this is a major surgery which patient would not sustain very well. The other option is placing iliac covered stents to push the clot aside. Unfortunately this would allow for aortic thrombotic material to flush downward unimpeded and with essentially worsened the situation. Therefore after discussing this with patient and family and then between Dr. Veras, Dr. Calzada and myself we agreed on following hybrid approach Patient will have axillobifemoral bypass in order to improve the blood flow to the legs and bypass the occluded area of aorta and iliac arteries. At the same , time Dr. Veras will coil the remaining proximal iliac flow in order to prevent clots from flushing down further. Between these 2 patient has the best chance to maintain the flow to the legs and minimize the chance of further distal embolization. Unfortunately patient does have metastatic lung cancer and his longevity is predicated upon this but also possible complications from the above-noted procedures for he will continue to have a low level consumption coagulopathy and may form clots in his axillobifemoral graft or in the distal [place] vessels. He will need to remain on full anticoagulation for the rest of his life probably go home on either factor VIIa inhibitor or thrombin inhibitor. I will also offer to the patient the option of going back to [place] where he already had lung surgery and brain surgery for they have established trust with that group of physicians and surgeons. Otherwise, patient is on schedule for tomorrow for axillobifemoral bypass and coiling of the iliacs. Discussed with hematology as well. I have extensively discussed the risks and benefits of the surgery with patient and his as well as potential risks including loss of both extremities and . 01/26/2018 Patient is status post axillobifemoral bypass and endovascular coiling of the common iliac arteries Incisions are clean and dry Patient is awake alert and oriented Patient has brisk flow in the axillofemoral graft and strong dopplerable popliteal and posterior tibial pulses Weak dorsalis pedis pulses Feet are nice and warm well perfused and capillary refill is normal Patient currently on argatroban and should probably go home on some oral anticoagulant probably Eliquis. Plan Transfer to floor Hep-Lock IV Out of bed Regular diet 01/27/2018 Patient doing well incisions are clean and dry Excellent flow in the axillofemoral portion of the graft into the both groins Both feet are nice and warm and well-perfused Patient still has some weakness in the right arm but this is improving since the surgery Patient ambulating in the corners without difficulty Greatly appreciate expertise by Dr. Calzada Fully agree with care and Dr. Hernandez hematology and Dr. Benjamin neurology valuable inputs and expertise are greatly appreciated Nothing to add from vascular point 01/28/2018 Patient doing very well Incisions clean and dry Excellent Doppler signal and the axillobifemoral grafts and distally Feet are warm and well perfused with normal capillary refill Patient may shower get incisions wet 01/29/2018 Nothing to add to care Incisions clean and dry and patient ambulating with ease Would send home on some sort of anticoagulation preferably factor VII inhibitor Follow-up in my office in about 3-4 weeks 01/30/2018 Patient doing well at this time Incision is clean and dry Platelet count slowly coming up Patient can shower get incisions wet Nothing to add to care at this time and patient will be discharged on factor VIIa inhibitor once the platelet count is adequate per hematology. Objective Vital Signs / I&O: Vital Signs 01/30/18 00:00 01/30/18 00:04 01/30/18 04:00 Temperature 99 F 99 F Pulse Rate 90 96 H Respiratory Rate 17 18 17 Blood Pressure 116/62 143/66 H Pulse Oximetry 97 95 01/30/18 06:47 01/30/18 07:55 01/30/18 12:00 Temperature 98.2 F 97.7 F Pulse Rate 87 81 Respiratory Rate 18 16 16 Blood Pressure 120/60 130/60 Pulse Oximetry 95 98 01/30/18 16:00 01/30/18 16:04 Temperature 98.2 F Pulse Rate 89 Respiratory Rate 16 Blood Pressure 122/62 Pulse Oximetry 99 98 Intake & Output 01/30/18 01/30/18 01/31/18 06:59 18:59 06:59 Intake Total 730 / 730 640 / 640 550 / 550 Output Total 1000 / 1000 750 / 750 Balance -270 / -270 -110 / -110 550 / 550 Weight 73.4 kg Intake: IV 250 / 250 550 / 550 Novastan Inj 250 MG In NS Inj 250 / 250 247.5 ML @ Per Protocol IV.CONT TITRATE PRN Rx#:[id number] Oral 480 / 480 640 / 640 Output: Urine 1000 / 1000 750 / 750 Other: Date of Last Bowel Movement 01/29/18 # Bowel Movements 0 Laboratory Results - last 24 hr 01/30/18 01/30/18 01/30/18 07:04 07:04 17:55 WBC 9.2 RBC 2.70 L Hgb 8.3 L Hct 24.0 L MCV 88.9 MCH 30.6 MCHC 34.4 RDW 17.7 H Plt Count 67 L MPV 8.5 APTT 68.3 H Sodium 141 Potassium 4.3 Chloride 104 Carbon Dioxide 27.9 Anion Gap 9 BUN 16 Creatinine 1.77 H Estimated GFR 39 L Random Glucose 97 Calcium 8.1 L Phosphorus 3.0 Albumin 2.1 L Microbiology 01/27/18 12:05 Aerobic Blood Culture - Preliminary Blood - Peripheral No growth in 3 days Anaerobic Blood Culture - Preliminary No growth in 3 days 01/27/18 12:00 Aerobic Blood Culture - Preliminary Blood - Peripheral No growth in 3 days Anaerobic Blood Culture - Preliminary No growth in 3 days
[2018-01-31] MEDS ORDERED: Sodium Chloride 0.9% 2 ML Flush PRN IV.FLUSH (01:37)
[2018-01-31] MEDS: Budesonide-Formoterol 160/4.5 MCG 6 GM Inhaler INH SCH ×3 (01:40→20:14)
[2018-01-31 05:09] LABS: Baso # (Auto) 0.1 th/mm3 (0.0-0.2); Baso % (Auto) 0.7 % (0.0-2.0); Eos # (Auto) 0.7 th/mm3 (0.0-0.4); Eos % (Auto) 8.4 % (0.0-4.0); Hematocrit 23.4 % (39.0-51.0); Hemoglobin 7.9 gm/dL (13.0-17.0); Lymph # (Auto) 1.8 th/mm3 (1.0-4.8); Lymph % (Auto) 23.2 % (9.0-44.0); Mean Corpuscular HGB Conc 33.7 % (32.0-36.0); Mean Corpuscular Volume 88.9 fL (80.0-100.0); Mean Platelet Volume 7.9 fL (7.0-11.0); Mono % (Auto) 12.9 % (0.0-8.0); Neut # (Auto) 4.3 th/mm3 (1.8-7.7); Neut % (Auto) 54.8 % (16.0-70.0); Platelet Count 64 th/mm3 (150-450); Red Blood Count 2.63 mil/mm3 (4.50-5.90); White Blood Count 7.8 th/mm3 (4.0-11.0)
[2018-01-31 05:18] LABS: Calcium 8.1 mg/dL (8.5-10.1); Carbon Dioxide 27.5 meq/L (21.0-32.0); Phosphorus 3.1 mg/dL (2.5-4.9); Potassium 4.2 meq/L (3.5-5.1)
[2018-01-31 06:47] LABS: Eosinophils 6 % (0-4); Lymphocytes 27 % (9-44); Monocytes 5 % (0-8); Myelocytes 4 % (0-0); Platelet Morphology Normal (Normal)
[2018-01-31] MEDS: Metoprolol Tartrate 25 MG Tablet PO SCH ×2 (08:44→20:14)
[2018-01-31] MEDS: Pregabalin 25 MG Capsule PO SCH (08:44)
[2018-01-31] MEDS: Folic Acid 1 MG Tablet PO SCH (08:44)
[2018-01-31] MEDS: Sodium Chloride 0.9% 2 ML Flush BID IV.FLUSH SCH ×2 (08:45→20:15)
[2018-01-31] MEDS: Argatroban Inj 250 MG in Sodium Chlor 0.9% Inj 247.5 ML IV.CONT PRN (08:46)
--- NOTE | 2018-01-31 09:49 | P.PNFP ---
Subjective Interval history: Patient was seen and evaluated this morning. He reports feeling well. Patient denies chest pain, heart palpitations, shortness of breath, nausea/vomiting, diarrhea and constipation. He denies lower extremity pain, weakness and numbness. He plans to work with PT today. Awaiting rise of platelet count above 100,000 to transition to oral anticoagulation. Patient hopes to go home by Monday. He prefers to go home rather than rehab. <Miladys Sifuentes - 01/31/18 10:45> Results - Labs Result diagrams: 01/31/18 04:42 01/31/18 04:42 <Jess Toro - 01/31/18 16:16> Abnormal lab results 01/30/18 01/31/18 01/31/18 Range/Units 17:55 04:42 04:42 RBC 2.63 L (4.50-5.90) mil/mm3 Hgb 7.9 L (13.0-17.0) gm/dL Hct 23.4 L (39.0-51.0) % RDW 18.0 H (11.6-17.2) % Plt Count 64 L (150-450) th/mm3 [place] % (Auto) 12.9 H (0.0-8.0) % Eos % (Auto) 8.4 H (0.0-4.0) % [place] # (Auto) 1.0 H (0.0-0.9) th/mm3 Eos # (Auto) 0.7 H (0.0-0.4) th/mm3 Eosinophils % (Manual) 6 H (0-4) % Basophils % (Manual) 3 H (0-2) % Myelocytes % (Man) 4 H (0-0) % Platelet Estimate Low L (Normal) APTT 68.3 H (24.3-30.1) sec Creatinine 1.68 H (0.60-1.30) mg/dL Estimated GFR 41 L (>89) mL/min Calcium 8.1 L (8.5-10.1) mg/dL Albumin 2.0 L (3.4-5.0) g/dL 01/31/18 Range/Units 04:42 RBC (4.50-5.90) mil/mm3 Hgb (13.0-17.0) gm/dL Hct (39.0-51.0) % RDW (11.6-17.2) % Plt Count (150-450) th/mm3 [place] % (Auto) (0.0-8.0) % Eos % (Auto) (0.0-4.0) % [place] # (Auto) (0.0-0.9) th/mm3 Eos # (Auto) (0.0-0.4) th/mm3 Eosinophils % (Manual) (0-4) % Basophils % (Manual) (0-2) % Myelocytes % (Man) (0-0) % Platelet Estimate (Normal) APTT 65.5 H (24.3-30.1) sec Creatinine (0.60-1.30) mg/dL Estimated GFR (>89) mL/min Calcium (8.5-10.1) mg/dL Albumin (3.4-5.0) g/dL Short CBC 01/31/18 Range/Units 04:42 WBC 7.8 (4.0-11.0) th/mm3 Hgb 7.9 L (13.0-17.0) gm/dL Hct 23.4 L (39.0-51.0) % Plt Count 64 L (150-450) th/mm3 BMP 01/31/18 04:42 Sodium 138 Potassium 4.2 Chloride 104 Carbon Dioxide 27.5 BUN 17 Creatinine 1.68 H Calcium 8.1 L Liver Function 01/31/18 Range/Units 04:42 Albumin 2.0 L (3.4-5.0) g/dL <Jess Toro - 01/31/18 16:16> Abnormal lab results 01/30/18 01/31/18 01/31/18 Range/Units 17:55 04:42 04:42 RBC 2.63 L (4.50-5.90) mil/mm3 Hgb 7.9 L (13.0-17.0) gm/dL Hct 23.4 L (39.0-51.0) % RDW 18.0 H (11.6-17.2) % Plt Count 64 L (150-450) th/mm3 [place] % (Auto) 12.9 H (0.0-8.0) % Eos % (Auto) 8.4 H (0.0-4.0) % [place] # (Auto) 1.0 H (0.0-0.9) th/mm3 Eos # (Auto) 0.7 H (0.0-0.4) th/mm3 Eosinophils % (Manual) 6 H (0-4) % Basophils % (Manual) 3 H (0-2) % Myelocytes % (Man) 4 H (0-0) % Platelet Estimate Low L (Normal) APTT 68.3 H (24.3-30.1) sec Creatinine 1.68 H (0.60-1.30) mg/dL Estimated GFR 41 L (>89) mL/min Calcium 8.1 L (8.5-10.1) mg/dL Albumin 2.0 L (3.4-5.0) g/dL 01/31/18 Range/Units 04:42 RBC (4.50-5.90) mil/mm3 Hgb (13.0-17.0) gm/dL Hct (39.0-51.0) % RDW (11.6-17.2) % Plt Count (150-450) th/mm3 [place] % (Auto) (0.0-8.0) % Eos % (Auto) (0.0-4.0) % [place] # (Auto) (0.0-0.9) th/mm3 Eos # (Auto) (0.0-0.4) th/mm3 Eosinophils % (Manual) (0-4) % Basophils % (Manual) (0-2) % Myelocytes % (Man) (0-0) % Platelet Estimate (Normal) APTT 65.5 H (24.3-30.1) sec Creatinine (0.60-1.30) mg/dL Estimated GFR (>89) mL/min Calcium (8.5-10.1) mg/dL Albumin (3.4-5.0) g/dL Short CBC 01/31/18 Range/Units 04:42 WBC 7.8 (4.0-11.0) th/mm3 Hgb 7.9 L (13.0-17.0) gm/dL Hct 23.4 L (39.0-51.0) % Plt Count 64 L (150-450) th/mm3 BMP 01/31/18 04:42 Sodium 138 Potassium 4.2 Chloride 104 Carbon Dioxide 27.5 BUN 17 Creatinine 1.68 H Calcium 8.1 L Liver Function 01/31/18 Range/Units 04:42 Albumin 2.0 L (3.4-5.0) g/dL <Miladys Sifuentes - 01/31/18 10:45> Physical Exam Vital signs: Vital Signs 01/30/18 20:00 01/31/18 00:00 01/31/18 08:00 Temperature 98.7 F 98.2 F 98.7 F Pulse Rate 84 80 82 Respiratory Rate 18 18 16 Blood Pressure 117/63 123/66 143/64 H Pulse Oximetry 96 95 97 01/31/18 12:00 01/31/18 16:00 Temperature 97.9 F 98.5 F Pulse Rate 78 78 Respiratory Rate 16 17 Blood Pressure 111/55 L 127/69 Pulse Oximetry 98 97 Intake & Output 01/30/18 01/31/18 01/31/18 18:59 06:59 18:59 Intake Total 640 / 640 550 / 550 151 / 151 Output Total 750 / 750 1775 / 1775 Balance -110 / -110 -1225 / -1225 151 / 151 Weight 71 kg Intake: IV 550 / 550 151 / 151 Novastan Inj 250 MG In NS Inj 151 / 151 247.5 ML @ Per Protocol IV.CONT TITRATE PRN Rx#:[id number] Oral 640 / 640 Output: Urine 750 / 750 1775 / 1775 Other: Date of Last Bowel Movement 01/29/18 # Bowel Movements 0 <Jess Toro - 01/31/18 16:16> Vital Signs 01/30/18 12:00 01/30/18 16:00 01/30/18 16:04 Temperature 97.7 F 98.2 F Pulse Rate 81 89 Respiratory Rate 16 16 Blood Pressure 130/60 122/62 Pulse Oximetry 98 99 98 01/30/18 20:00 01/31/18 00:00 01/31/18 08:00 Temperature 98.7 F 98.2 F 98.7 F Pulse Rate 84 80 82 Respiratory Rate 18 18 16 Blood Pressure 117/63 123/66 143/64 H Pulse Oximetry 96 95 97 Intake & Output 01/30/18 01/31/18 01/31/18 18:59 06:59 18:59 Intake Total 640 / 640 550 / 550 151 / 151 Output Total 750 / 750 1775 / 1775 Balance -110 / -110 -1225 / -1225 151 / 151 Weight 71 kg Intake: IV 550 / 550 151 / 151 Novastan Inj 250 MG In NS Inj 151 / 151 247.5 ML @ Per Protocol IV.CONT TITRATE PRN Rx#:[id number] Oral 640 / 640 Output: Urine 750 / 750 1775 / 1775 Other: Date of Last Bowel Movement 01/29/18 # Bowel Movements 0 <Miladys Sifuentes - 01/31/18 09:49> Narrative: GENERAL: Laying in bed, NAD. SKIN: Warm and dry. Incisions dry with no drainage. Improved ecchymotic region left anterior lower hol[place], nontender, no palpable cord or warmth. CARDIOVASCULAR: Regular rate and rhythm. 2/6 systolic ejection murmur present. RESPIRATORY: No accessory muscle use. Clear to auscultation. Breath sounds equal bilaterally with decreased breath sounds in bases bilaterally. No wheezes , crackles, rales. GASTROINTESTINAL: Normal bowel sounds. Abdomen soft, non-tender, nondistended. MUSCULOSKELETAL: Extremities warm to touch. No edema or cyanosis. NEUROLOGICAL: Awake and alert. Normal speech. CN II-XII grossly intact. PSYCHIATRIC: Appropriate mood and affect; insight and judgment normal. <Miladys Sifuentes 01/31/18 10:45> - Urinary Catheter Management Indwelling Urethral Catheter Cath placed during this visit: no <Jess Toro - 01/31/18 16:16> yes, but has since been removed by the nurse <Miladys Sifuentes 01/31/18 10:45> Reason for continuing: Decision to DC catheter <Miladys Sifuentes 01/31/18 09: 49> Insertion date: 01/25/18 <Miladys Sifuentes 01/31/18 09:49> Insertion time: 12:59 <Miladys Sifuentes 01/31/18 09:49> Removal date: 01/26/18 <Miladys Sifuentes 01/31/18 09:49> Removal time: 17:00 <Miladys Sifuentes 01/31/18 09:49> Assessment and Plan - Assessment (1) SIRS (systemic inflammatory response syndrome) Code(s): R65.10 - Systemic inflammatory response syndrome (SIRS) of non- infectious origin without acute organ dysfunction Status: Resolved (2) Pain in both lower legs Code(s): M79.661 - Pain in right lower leg; M79.662 - Pain in left lower leg Status: Resolved (3) Heparin induced thrombocytopenia Code(s): D75.82 - Heparin induced thrombocytopenia (HIT) Status: Acute (4) Dysmetria Code(s): R27.8 - Other lack of coordination Status: Acute (5) Hypertension Code(s): I10 - Essential (primary) hypertension Status: Chronic (6) EVON (acute kidney injury) Code(s): N17.9 - Acute kidney failure, unspecified Status: Acute (7) Metastatic primary lung cancer Code(s): C34.90 - Malignant neoplasm of unspecified part of unspecified bronchus or lung Status: Chronic (8) Thrombosis of right saphenous vein Code(s): I82.811 - Embolism and thrombosis of superficial veins of right lower extremity Status: Acute (9) Anemia Code(s): D64.9 - Anemia, unspecified Status: Acute (10) Avascular necrosis of hip Code(s): M87.059 - Idiopathic aseptic necrosis of unspecified femur Status: Chronic (11) Atrial fibrillation Code(s): I48.91 - Unspecified atrial fibrillation Status: Acute (12) Nutrition, metabolism, and development symptoms Code(s): R63.8 - Other symptoms and signs concerning food and fluid intake Status: Acute <Jess Toro R - 01/31/18 16:16> (1) SIRS (systemic inflammatory response syndrome) Code(s): R65.10 - Systemic inflammatory response syndrome (SIRS) of non- infectious origin without acute organ dysfunction Status: Resolved Plan: Afebrile since 01/28 at 00:00. No obvious source of infection, however inflammatory response could be related to malignancy vs thrombosis vs septic thrombophlebitis. Chest x-ray (01/20): Stable from admission. Chest x-ray (01/27): Stable, no acute process. Urinalysis (01/20): Negative leukocyte esterase and nitrite, large occult blood, 100 protein, rare bacteria. Urinalysis (01/27): 2 RBC, negative for infection. Blood cultures (01/21): No growth to date. Blood cultures (01/26): No growth to date. Antibiotic history: -Vancomycin (01/21-) -Cefepime 2g 24H (01/21-) Monitor vitals, if new symptoms need to workup further and may need antibiotics. Tylenol PRN fevers. Continue incentive spirometry. Physical therapy, OOB. (2) Pain in both lower legs Code(s): M79.661 - Pain in right lower leg; M79.662 - Pain in left lower leg Status: Resolved Plan: Patient presented with worsening pain and weakness in bilateral legs. Upon further discussion with patient, had signs and symptoms of peripheral arterial disease. Also, with associated neuropathy and weakness upon admission. Aorta CTA shows severe atherosclerotic disease with severe narrowing of distal aorta, mural thrombus at level of distal aorta and infarction of the inferior right kidney MRI with no acute findings. Cervical MRI shows stenosis. Thoracic MRI with possible drop mets. Repeat thoracic MRI shows slight enhancement along spinal cord either nerve root enhancement or drop metastases. Lumbar MRI wnl. EEG wnl. CPK 520. Sacrum/Coccyx MRI: no acute plexus findings. 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 * Continue Lyrica 50mg BID. * Recommend LP, holding due to thrombocytopenia as well as anticoagulation; not candidate for chemo at this time. * Patient is not interested in having LP during this hospitalization. * EMG shows demyelinating sensory motor polyneuropathy. Vascular [id number]-dkrosnklab recs. * Pt has changes of decrease blood flow in feet. Throwing embolic material distally. * Post-op 01/25/18 from axillobifemoral bypass along with coiling proximal ilial flow. Tolerated procedure well. Feet warm and normal cap refill. Heme/onc consulted. * Treating HIT with argatroban. PT evaluating. * Recommend home health. Pain management: * Oxycodone 5mg q6H pain 1-10. * Morphine 1mg breakthrough pain. (3) Heparin induced thrombocytopenia Code(s): D75.82 - Heparin induced thrombocytopenia (HIT) Status: Acute Plan: Post-op from lobectomy and s/p heparin 9 days on admission. Heparin-induced thrombocytopenia antibody positive. Platelets stable today. No transfusion recommended at this time due to possibility of further coagulation. Hold all heparin forms. 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 * On argatroban gtt. * Once platelets>100, will then transition to Eliquis. (4) Dysmetria Code(s): R27.8 - Other lack of coordination Status: Acute Plan: Patient developed right upper extremity dysmetria after surgery. Has difficulty reaching object with his right hand when he goes to shake hands or reach for something. Sensation and pulses intact. MRI and MRA head without any acute change. Improving neuro function. Continue PT. Monitor symptoms. (5) Hypertension Code(s): I10 - Essential (primary) hypertension Status: Chronic Plan: Patient with BP up to 170s/70s post-op. Started on clonidine and nitro patch initially, d/c post-op. Monitor vitals Metoprolol 12.5mg BID. Clonidine PO PRN SBP>180. (6) EVON (acute kidney injury) Code(s): N17.9 - Acute kidney failure, unspecified Status: Acute Plan: Increasing serum creatinine during hospitalization. Admitted with Cr of 1.2. CMP from 06/28/17 with Cr of 0.95. Aortic CTA shows infarct of inferior pole of right kidney of unknown age. Cr stable. 1.70 may new baseline. Monitor I/Os, urine output. Monitor BMP. Avoid nephrotoxic agents. Avoid further contrast studies if able. Renal consulted: * Suspect contrast nephrotoxicity. * Serum complements wnl; urine eosinophils negative. (7) Metastatic primary lung cancer Code(s): C34.90 - Malignant neoplasm of unspecified part of unspecified bronchus or lung Status: Chronic Plan: S/p chemo in November, s/p lobectomy. Recent PET scans negative. MRI spine shows possible mets. Repeat brain MRI with no acute change. Management per oncology team; discussing case with patients oncologist in [place] , Dr. Dillard. Regarding possible drop mets * Unsure of etiology at this time. Radiation oncology consulted * No therapy at this time due to low platelets. (8) Thrombosis of right saphenous vein Code(s): I82.811 - Embolism and thrombosis of superficial veins of right lower extremity Status: Acute Plan: Lower extremity superficial vein, generally benign and self-limited however a larger vein is involved in this case. Caution with propagation into the DVT system and PE possibility. Likely due to abnormal coagulation at this time. Elevation. Pain management. (9) Anemia Code(s): D64.9 - Anemia, unspecified Status: Acute Plan: No history of anemia per patient. Likely chronic anemia, patient at high risk for bleeding due to thrombocytopenia. Unsure of the exact cause, chemotherapy vs recent surgery vs chronic anemia. (10) Avascular necrosis of hip Code(s): M87.059 - Idiopathic aseptic necrosis of unspecified femur Status: Chronic Plan: MRI of sacrum revealed findings of avascular necrosis involving the right femoral head. No collapse. Patient reports chronic hip pain, nothing acute. Unsure etiology. Did receive IV steroids on 01/23. * Will hold further steroids at this time. * Continue to monitor. (11) Atrial fibrillation Code(s): I48.91 - Unspecified atrial fibrillation Status: Acute Plan: History of Afib. Controlled rate. Was diagnosed after previous surgery. 2/6 YANA murmur on exam, TR and MR seen on Echo. Echo shows EF of 50-55%, segmental wall motion abnormalities with hypokinesis. No episodes of Afib during admission; telemety d/c. Continue metoprolol. (12) Nutrition, metabolism, and development symptoms Code(s): R63.8 - Other symptoms and signs concerning food and fluid intake Status: Acute Plan: Fluids: * Tolerating PO. Electrolytes: * Monitor and replete as necessary. Nutrition: * Regular diet. DVT prophylaxis: Holding all heparin products, argatroban gtt. Incentive spirometry. <Miladys Sifuentes - 01/31/18 10:37> - Assessment and Plan 62 year old male with history of lung cancer with mets to brain, hypertension, atrial fibrillation presented on admission with bilateral leg pain/weakness. Admitted for workup. 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 Currently on argatroban gtt, awaiting improvement of platelets. Post-op from axillofemoral bypass with coiling. Pain and blood flow improved. Awaiting improvement of platelets for transition to oral anticoagulant. <Miladys Sifuentes - 01/31/18 10:45> - Attending Attestation The exam, history, and the medical decision-making described in the above note were completed with the assistance of the resident physician. I reviewed and agree with the findings presented. <Jess Toro - 01/31/18 16:16> <Miladys Sifuentes - Last Filed: 01/31/18 10:37> (9) Anemia Qualifiers: Anemia type: bone marrow failure Bone marrow failure anemia type: pancytopenia, antineoplastic chemotherapy-induced Qualified Code(s): D61.810 - Antineoplastic chemotherapy induced pancytopenia; T45.1X5A - Adverse effect of antineoplastic and immunosuppressive drugs, initial encounter (10) Avascular necrosis of hip Qualifiers: Laterality: right Qualified Code(s): M87.051 - Idiopathic aseptic necrosis of right femur <Jess Toro R - Last Filed: 01/31/18 16:16> (9) Anemia Qualifiers: Anemia type: bone marrow failure Bone marrow failure anemia type: pancytopenia, antineoplastic chemotherapy-induced Qualified Code(s): D61.810 - Antineoplastic chemotherapy induced pancytopenia; T45.1X5A - Adverse effect of antineoplastic and immunosuppressive drugs, initial encounter (10) Avascular necrosis of hip Qualifiers: Laterality: right Qualified Code(s): M87.051 - Idiopathic aseptic necrosis of right femur <Miladys Sifuentes - Last Filed: 01/31/18 10:37> (9) Anemia Qualifiers: Anemia type: bone marrow failure Bone marrow failure anemia type: pancytopenia, antineoplastic chemotherapy-induced Qualified Code(s): D61.810 - Antineoplastic chemotherapy induced pancytopenia; T45.1X5A - Adverse effect of antineoplastic and immunosuppressive drugs, initial encounter (10) Avascular necrosis of hip Qualifiers: Laterality: right Qualified Code(s): M87.051 - Idiopathic aseptic necrosis of right femur <Jess Toro - Last Filed: 01/31/18 16:16> (9) Anemia Qualifiers: Anemia type: bone marrow failure Bone marrow failure anemia type: pancytopenia, antineoplastic chemotherapy-induced Qualified Code(s): D61.810 - Antineoplastic chemotherapy induced pancytopenia; T45.1X5A - Adverse effect of antineoplastic and immunosuppressive drugs, initial encounter (10) Avascular necrosis of hip Qualifiers: Laterality: right Qualified Code(s): M87.051 - Idiopathic aseptic necrosis of right femur
--- NOTE | 2018-01-31 12:54 | P.PNONC ---
Subjective Interval history: Afebrile, lying in bed comfortably. His is at the bedside. Patient has no complaints at this time. He denies any bleeding. Continues on argatroban drip. Patient up and ambulating in hallway this morning. He states he tolerated it well. Denies any leg pain at this time. Admits to some soreness at the right groin incision site. Objective Vital Signs/Intake & Output: Vital Signs 01/30/18 16:00 01/30/18 16:04 01/30/18 20:00 Temperature 98.2 F 98.7 F Pulse Rate 89 84 Respiratory Rate 16 18 Blood Pressure 122/62 117/63 Pulse Oximetry 99 98 96 01/31/18 00:00 01/31/18 08:00 Temperature 98.2 F 98.7 F Pulse Rate 80 82 Respiratory Rate 18 16 Blood Pressure 123/66 143/64 H Pulse Oximetry 95 97 Intake & Output 01/30/18 01/31/18 01/31/18 18:59 06:59 18:59 Intake Total 640 / 640 550 / 550 151 / 151 Output Total 750 / 750 1775 / 1775 Balance -110 / -110 -1225 / -1225 151 / 151 Weight 71 kg Intake: IV 550 / 550 151 / 151 Novastan Inj 250 MG In NS Inj 151 / 151 247.5 ML @ Per Protocol IV.CONT TITRATE PRN Rx#:[id number] Oral 640 / 640 Output: Urine 750 / 750 1775 / 1775 Other: Date of Last Bowel Movement 01/29/18 # Bowel Movements 0 Result Diagrams: 01/31/18 04:42 01/31/18 04:42 Laboratory Results: Laboratory Results - last 24 hr 01/30/18 01/31/18 01/31/18 17:55 04:42 04:42 WBC 7.8 RBC 2.63 L Hgb 7.9 L Hct 23.4 L MCV 88.9 MCH 30.0 MCHC 33.7 RDW 18.0 H Plt Count 64 L MPV 7.9 Prelim Diff (Auto) Slide review pending Neut % (Auto) 54.8 Lymph % (Auto) 23.2 Whitman % (Auto) 12.9 H Eos % (Auto) 8.4 H Baso % (Auto) 0.7 Neut # (Auto) 4.3 Lymph # (Auto) 1.8 Whitman # (Auto) 1.0 H Eos # (Auto) 0.7 H Baso # (Auto) 0.1 WBC Differential Manual diff final Seg Neuts % (Manual) 53 Band Neuts % (Manual) 2 Lymphocytes % (Manual) 27 Monocytes % (Manual) 5 Eosinophils % (Manual) 6 H Basophils % (Manual) 3 H Myelocytes % (Man) 4 H Abs Neuts (Manual) 4.6 Differential Comment . Platelet Estimate Low L Platelet Morphology Normal APTT 68.3 H Sodium 138 Potassium 4.2 Chloride 104 Carbon Dioxide 27.5 Anion Gap 7 BUN 17 Creatinine 1.68 H Estimated GFR 41 L Random Glucose 89 Calcium 8.1 L Phosphorus 3.1 Albumin 2.0 L 01/31/18 04:42 WBC RBC Hgb Hct MCV MCH MCHC RDW Plt Count MPV Prelim Diff (Auto) Neut % (Auto) Lymph % (Auto) Whitman % (Auto) Eos % (Auto) Baso % (Auto) Neut # (Auto) Lymph # (Auto) Whitman # (Auto) Eos # (Auto) Baso # (Auto) WBC Differential Seg Neuts % (Manual) Band Neuts % (Manual) Lymphocytes % (Manual) Monocytes % (Manual) Eosinophils % (Manual) Basophils % (Manual) Myelocytes % (Man) Abs Neuts (Manual) Differential Comment Platelet Estimate Platelet Morphology APTT 65.5 H Sodium Potassium Chloride Carbon Dioxide Anion Gap BUN Creatinine Estimated GFR Random Glucose Calcium Phosphorus Albumin Culture Results: Microbiology 01/27/18 12:05 Aerobic Blood Culture - Preliminary Blood - Peripheral No growth in 4 days Anaerobic Blood Culture - Preliminary No growth in 4 days 01/27/18 12:00 Aerobic Blood Culture - Preliminary Blood - Peripheral No growth in 4 days Anaerobic Blood Culture - Preliminary No growth in 4 days Medications: Active Medications Generic Name Dose Route Start Last Admin Trade Name Freq PRN Reason Stop Dose Admin Acetaminophen 650 mg 01/27/18 08:52 01/29/18 14:19 Tylenol PO 650 mg Q4H PRN Administration Temp > 100.4 Al Hydroxide/Mg Hydroxide 30 ml 01/17/18 14:19 01/23/18 20:34 Milk Of Magnesia Liq PO 30 ml Q12H PRN Administration Mild Constipation Budesonide/Formoterol Fumarate 2 puff 01/17/18 14:00 01/31/18 08:45 Symbicort 160/4.5 Mcg Inh INH 2 puff BID SHAVONNE Administration Folic Acid 1 mg 01/17/18 13:45 01/31/18 08:44 Folic Acid PO 1 mg DAILY SHAVONNE Administration Argatroban 250 mg/ Sodium 250 mls @ 0 mls/hr 01/18/18 15:00 01/31/18 08:46 Chloride IV.CONT 2.12 mcg/kg/min TITRATE PRN 8.8 mls/hr Per Protocol Administration Protocol Per Protocol Metoprolol Tartrate 12.5 mg 01/28/18 09:00 01/31/18 08:44 Lopressor PO 12.5 mg BID SHAVONNE Administration Morphine Sulfate 1 mg 01/26/18 10:08 01/28/18 18:24 Morphine Inj IV.PUSH 1 mg Q6HR PRN Administration PAIN 6-10;IF UNABLE TO TAKE PO Oxycodone HCl 5 mg 01/28/18 18:50 01/31/18 08:44 Roxicodone PO 5 mg Q6H PRN Administration PAIN SCALE 1 TO 10 Sennosides 17.2 mg 01/17/18 14:08 01/21/18 22:30 Senokot PO 17.2 mg Q12H PRN Administration Moderate Constipation Sodium Chloride 2 ml 01/17/18 11:17 01/20/18 20:43 Ns Flush IV.FLUSH 2 ml PRN PRN Administration FLUSH AFTER USING IV ACCESS Sodium Chloride 2 ml 01/31/18 09:00 01/31/18 08:45 Ns Flush IV.FLUSH 2 ml BID SHAVONNE Administration Temazepam 15 mg 01/17/18 21:00 01/30/18 20:56 Restoril PO 15 mg HS PRN Administration INSOMNIA Objective Remarks: GENERAL: Middle-aged male patient, sitting upright in bed, in no acute distress. SKIN: Warm and dry. Petechiae to left lateral calf. HEAD: Normocephalic. EYES: No scleral icterus. No injection or drainage. NECK: Supple, trachea midline. CARDIOVASCULAR: +S1/S2 without murmurs. RESPIRATORY: Anterior breath sounds clear, non-labored. GASTROINTESTINAL: Abdomen soft, non-tender, nondistended. Right groin incision site with dry steri-strips, no erythema, draining or oozing. EXTREMITIES: No cyanosis or edema. Feet/toes warm to touch. Tiny area of rubor at tips of great toes. MUSCULOSKELETAL: Adequate muscle tone. NEUROLOGICAL: No obvious focal deficit. Awake, alert, and oriented x3. 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 Bernstein is a pleasant 62-year-old gentleman with a history of non-small cell lung cancer with brain metastasis, status post craniotomy with resection followed by stereotactic radiosurgery with gamma knife, 3-4 cycles of preop Immunochemotherapy with 2 doses of Platinol and Alimta he also underwent thoracotomy and resection of the left upper lobe and wedge resection of the left lower lobe on 01/01/2018. Patient had minimal residual disease of 0.6 cm and also the lymph nodes were negative. Margins were also negative. During this admission the patient was found to have severe thrombocytopenia. Patient did have recent exposure to subcutaneous heparin after his recent surgery. Plan: 1. Continue Argatroban drip, platelets decreased slightly today to 64,000. Once platelets are greater than 100,000 we can bridge argatroban to oral anticoagulant. 2. Continue to monitor for bleeding. 3. Continue supportive care. - Attending Statement The exam, history, and the medical decision-making described in the above note were completed with the assistance of the mid-level provider. I reviewed and agree with the findings presented. I attest that I had a [id number] encounter with the patient on the same day, and personally performed and documented my assessment and findings in the medical record. Patient is able to walk in the knight without having any problems Denies any pain in his legs Still has problem with the balance at times due to the leg weakness Platelets yesterday was 67 and today 64. I am going to stop Lyrica and Protonix as both can sometime cause thrombocytopenia Continue to monitor CBC and platelets. Will bridge argatroban to Eliquis once the platelets are more than 100. Patient may benefit from outpatient physical therapy. wellness program manager to arrange for outpatient physical therapy Extensive discussion with patient, and the family
--- NOTE | 2018-01-31 17:34 | P.PNNP ---
Subjective Interval history: Patient lying in bed not in respiratory distress. by bedside. Physical Exam Vital signs: Vital Signs 01/30/18 20:00 01/31/18 00:00 01/31/18 08:00 Temperature 98.7 F 98.2 F 98.7 F Pulse Rate 84 80 82 Respiratory Rate 18 18 16 Blood Pressure 117/63 123/66 143/64 H Pulse Oximetry 96 95 97 01/31/18 12:00 01/31/18 16:00 Temperature 97.9 F 98.5 F Pulse Rate 78 78 Respiratory Rate 16 17 Blood Pressure 111/55 L 127/69 Pulse Oximetry 98 97 Intake & Output 01/30/18 01/31/18 01/31/18 18:59 06:59 18:59 Intake Total 640 / 640 550 / 550 1151 / 1151 Output Total 750 / 750 1775 / 1775 Balance -110 / -110 -1225 / -1225 1151 / 1151 Weight 71 kg Intake: IV 550 / 550 151 / 151 Novastan Inj 250 MG In NS Inj 151 / 151 247.5 ML @ Per Protocol IV.CONT TITRATE PRN Rx#:[id number] Oral 640 / 640 1000 / 1000 Output: Urine 750 / 750 1775 / 1775 Other: # Voids 800 Date of Last Bowel Movement 01/29/18 # Bowel Movements 0 1 Narrative: GENERAL: Laying in bed, NAD. SKIN: Warm and dry. CARDIOVASCULAR: Regular rate and rhythm. 2/6 systolic ejection murmur present. RESPIRATORY: No accessory muscle use. Clear to auscultation. Breath sounds equal bilaterally with decreased breath sounds in bases bilaterally. No wheezes , crackles, rales. GASTROINTESTINAL: Normal bowel sounds. Abdomen soft, non-tender, nondistended. MUSCULOSKELETAL: Extremities warm to touch. No edema or cyanosis. - Urinary Catheter Management Indwelling Urethral Catheter Cath placed during this visit: yes, but has since been removed by the nurse Reason for continuing: Decision to DC catheter Insertion date: 01/25/18 Insertion time: 12:59 Removal date: 01/26/18 Removal time: 17:00 Assessment and Plan - Assessment (1) EVON (acute kidney injury) Code(s): N17.9 - Acute kidney failure, unspecified Status: Acute Plan: Patient likely has developed some degree of contrast nephrotoxicity post CTA. Patient also has evidence of renal infarct involving the lower pole of the right kidney. Unfortunately cannot be certain as to the timing of the event. 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 Also mention of atrial fibrillation and a history. Potential for pre-existing renal insufficiency related to chemotherapy from [facility] as admitting SCr at 1.2. Patient's renal indices improved again slightly. Current values may represent his new baseline level as discussed with him although there is potential for further improvement in renal function. Patient is clear for discharge from a renal point of view. Patient should follow-up with automotive service assistant about 2 weeks post discharge with labs post discharge in about 1 week. Patient and counseled regarding need to avoid using NSAIDs for analgesia post discharge which may worsen his renal function and also that any new medication should be adjusted for his estimated GFR when indicated. They also had questions regarding gadolinium. They were advised that gadolinium is contraindicated if his GFR is below 30 although the final say regarding administration will be deferred to his physicians at the [facility] as discussed with him. He was advised of the potential risk of nephrogenic systemic sclerosis associated with gadolinium in patients with severe chronic kidney disease. Medications should be adjusted for the patient's estimated GFR if clinically indicated. Avoid agents with significant potential for nephrotoxicity possible including NSAIDs for analgesia, iodine contrast agents. Gadolinium is contraindicated if the GFR is below 30. (2) Renal infarction Code(s): N28.0 - Ischemia and infarction of kidney Status: Acute Plan: Risk factors as described above for renal infarction. Timing of infarction uncertain and it may have been subacute or chronic in nature. Patient already on anticoagulation. No new recommendations from my point of view in regard to management of same.
--- NOTE | 2018-01-31 18:34 | P.PNFP ---
Subjective Interval history: Mr Richey has been seen and evaluated this morning. He is doing well and has no concerns or complaints today. He has been working with PT every day and improving his strength. He denies fever, chill, SOB, nausea, vomiting. Discusses with him and his platelet count and likelihood he will stay longer than Monday. <Roberta Echols V - 01/31/18 18:34> Results - Labs Result diagrams: 02/01/18 06:27 02/01/18 06:27 <Jess Elena R - 02/01/18 15:14> Abnormal lab results 02/01/18 02/01/18 02/01/18 Range/Units 06:27 06:27 06:27 RBC 2.71 L (4.50-5.90) mil/mm3 Hgb 8.1 L (13.0-17.0) gm/dL Hct 24.3 L (39.0-51.0) % RDW 17.5 H (11.6-17.2) % Plt Count 78 L (150-450) th/mm3 [place] % (Auto) 13.6 H (0.0-8.0) % Eos % (Auto) 7.7 H (0.0-4.0) % [place] # (Auto) 1.0 H (0.0-0.9) th/mm3 Eos # (Auto) 0.6 H (0.0-0.4) th/mm3 Monocytes % (Manual) 10 H (0-8) % Eosinophils % (Manual) 6 H (0-4) % Platelet Estimate Low L (Normal) APTT 66.2 H (24.3-30.1) sec Creatinine 1.62 H (0.60-1.30) mg/dL Estimated GFR 43 L (>89) mL/min Random Glucose 113 H (74-106) mg/dL Calcium 8.3 L (8.5-10.1) mg/dL Short CBC 02/01/18 Range/Units 06:27 WBC 7.7 (4.0-11.0) th/mm3 Hgb 8.1 L (13.0-17.0) gm/dL Hct 24.3 L (39.0-51.0) % Plt Count 78 L (150-450) th/mm3 BMP 02/01/18 06:27 Sodium 138 Potassium 4.0 Chloride 103 Carbon Dioxide 28.5 BUN 18 Creatinine 1.62 H Calcium 8.3 L <Jess Elena R - 02/01/18 15:14> Abnormal lab results 01/30/18 01/31/18 01/31/18 Range/Units 17:55 04:42 04:42 RBC 2.63 L (4.50-5.90) mil/mm3 Hgb 7.9 L (13.0-17.0) gm/dL Hct 23.4 L (39.0-51.0) % RDW 18.0 H (11.6-17.2) % Plt Count 64 L (150-450) th/mm3 [place] % (Auto) 12.9 H (0.0-8.0) % Eos % (Auto) 8.4 H (0.0-4.0) % [place] # (Auto) 1.0 H (0.0-0.9) th/mm3 Eos # (Auto) 0.7 H (0.0-0.4) th/mm3 Eosinophils % (Manual) 6 H (0-4) % Basophils % (Manual) 3 H (0-2) % Myelocytes % (Man) 4 H (0-0) % Platelet Estimate Low L (Normal) APTT 68.3 H (24.3-30.1) sec Creatinine 1.68 H (0.60-1.30) mg/dL Estimated GFR 41 L (>89) mL/min Calcium 8.1 L (8.5-10.1) mg/dL Albumin 2.0 L (3.4-5.0) g/dL 01/31/18 Range/Units 04:42 RBC (4.50-5.90) mil/mm3 Hgb (13.0-17.0) gm/dL Hct (39.0-51.0) % RDW (11.6-17.2) % Plt Count (150-450) th/mm3 [place] % (Auto) (0.0-8.0) % Eos % (Auto) (0.0-4.0) % [place] # (Auto) (0.0-0.9) th/mm3 Eos # (Auto) (0.0-0.4) th/mm3 Eosinophils % (Manual) (0-4) % Basophils % (Manual) (0-2) % Myelocytes % (Man) (0-0) % Platelet Estimate (Normal) APTT 65.5 H (24.3-30.1) sec Creatinine (0.60-1.30) mg/dL Estimated GFR (>89) mL/min Calcium (8.5-10.1) mg/dL Albumin (3.4-5.0) g/dL Short CBC 01/31/18 Range/Units 04:42 WBC 7.8 (4.0-11.0) th/mm3 Hgb 7.9 L (13.0-17.0) gm/dL Hct 23.4 L (39.0-51.0) % Plt Count 64 L (150-450) th/mm3 BMP 01/31/18 04:42 Sodium 138 Potassium 4.2 Chloride 104 Carbon Dioxide 27.5 BUN 17 Creatinine 1.68 H Calcium 8.1 L Liver Function 01/31/18 Range/Units 04:42 Albumin 2.0 L (3.4-5.0) g/dL <Roberta Echols V - 01/31/18 18:34> Physical Exam Vital signs: Vital Signs 01/31/18 16:00 01/31/18 20:00 02/01/18 00:57 Temperature 98.5 F 99.4 F 98.8 F Pulse Rate 78 83 80 Respiratory Rate 17 16 16 Blood Pressure 127/69 111/57 L 124/61 Pulse Oximetry 97 97 96 02/01/18 08:00 02/01/18 12:00 Temperature 98.3 F 97.0 F L Pulse Rate 79 76 Respiratory Rate 16 16 Blood Pressure 117/62 117/61 Pulse Oximetry 96 97 Intake & Output 01/31/18 02/01/18 02/01/18 18:59 06:59 18:59 Intake Total 1151 / 1151 1999 250 / 250 Balance 1151 / 1151 1999 250 / 250 Weight 71 kg Intake: IV 151 / 151 250 / 250 Novastan Inj 250 MG In NS Inj 151 / 151 250 / 250 247.5 ML @ Per Protocol IV.CONT TITRATE PRN Rx#:[id number] Oral 1000 / 1000 1999 Other: # Voids 800 1,200 Date of Last Bowel Movement 01/29/18 # Bowel Movements 1 <Vandemark,Jess R - 02/01/18 15:14> Vital Signs 01/30/18 20:00 01/31/18 00:00 01/31/18 08:00 Temperature 98.7 F 98.2 F 98.7 F Pulse Rate 84 80 82 Respiratory Rate 18 18 16 Blood Pressure 117/63 123/66 143/64 H Pulse Oximetry 96 95 97 01/31/18 12:00 01/31/18 16:00 Temperature 97.9 F 98.5 F Pulse Rate 78 78 Respiratory Rate 16 17 Blood Pressure 111/55 L 127/69 Pulse Oximetry 98 97 Intake & Output 01/30/18 01/31/18 01/31/18 18:59 06:59 18:59 Intake Total 640 / 640 550 / 550 1151 / 1151 Output Total 750 / 750 1775 / 1775 Balance -110 / -110 -1225 / -1225 1151 / 1151 Weight 71 kg Intake: IV 550 / 550 151 / 151 Novastan Inj 250 MG In NS Inj 151 / 151 247.5 ML @ Per Protocol IV.CONT TITRATE PRN Rx#:[id number] Oral 640 / 640 1000 / 1000 Output: Urine 750 / 750 1775 / 1775 Other: # Voids 800 Date of Last Bowel Movement 01/29/18 # Bowel Movements 0 1 <Roberta Echols V - 01/31/18 18:34> Narrative: GENERAL APPEARANCE: 63 year old patient well-developed, well-nourished, in no acute distress. SKIN: Skin is warm and dry without erythema, swelling or exudate. There is good turgor. No tenting. HEENT: Extra ocular motions are intact. No drainage or injection. LUNGS: Equal and bilateral breath sounds without wheezes, rales or rhonchi. Well healed scar noted below left scapula. CHEST: The chest wall is without retractions or use of accessory muscles. HEART: Has a regular rate and rhythm without murmur, gallops, click or rub. ABDOMEN: Soft, non tender with positive active bowel sounds. No rebound tenderness. No masses, no hepatosplenomegaly. EXTREMITIES: Without cyanosis, clubbing or edema. Equal 2+ distal pulses NEUROLOGIC: The patient is alert, aware, and appropriately interactive with examiner. <Roberta Echols V - 01/31/18 18:34> - Urinary Catheter Management Indwelling Urethral Catheter Cath placed during this visit: no <Jess Elena R - 02/01/18 15:14> yes, but has since been removed by the nurse <Roberta Echols V - 01/31/18 18:34> Reason for continuing: Decision to DC catheter <Roberta Echols V - 18:34> Insertion date: 01/25/18 <Roberta Echols V - 01/31/18 18:34> Insertion time: 12:59 <Roberta Echols V - 01/31/18 18:34> Removal date: 01/26/18 <Roberta Echols V - 01/31/18 18:34> Removal time: 17:00 <Roberta Echols V - 01/31/18 18:34> Assessment and Plan - Assessment (1) SIRS (systemic inflammatory response syndrome) Code(s): R65.10 - Systemic inflammatory response syndrome (SIRS) of non- infectious origin without acute organ dysfunction Status: Resolved (2) Pain in both lower legs Code(s): M79.661 - Pain in right lower leg; M79.662 - Pain in left lower leg Status: Resolved (3) Heparin induced thrombocytopenia Code(s): D75.82 - Heparin induced thrombocytopenia (HIT) Status: Acute (4) Dysmetria Code(s): R27.8 - Other lack of coordination Status: Acute (5) Hypertension Code(s): I10 - Essential (primary) hypertension Status: Chronic (6) EVON (acute kidney injury) Code(s): N17.9 - Acute kidney failure, unspecified Status: Acute (7) Metastatic primary lung cancer Code(s): C34.90 - Malignant neoplasm of unspecified part of unspecified bronchus or lung Status: Chronic (8) Thrombosis of right saphenous vein Code(s): I82.811 - Embolism and thrombosis of superficial veins of right lower extremity Status: Acute (9) Anemia Code(s): D64.9 - Anemia, unspecified Status: Acute (10) Avascular necrosis of hip Code(s): M87.059 - Idiopathic aseptic necrosis of unspecified femur Status: Chronic (11) Atrial fibrillation Code(s): I48.91 - Unspecified atrial fibrillation Status: Acute (12) Nutrition, metabolism, and development symptoms Code(s): R63.8 - Other symptoms and signs concerning food and fluid intake Status: Acute <Jess Elena - 02/01/18 15:14> (1) SIRS (systemic inflammatory response syndrome) Code(s): R65.10 - Systemic inflammatory response syndrome (SIRS) of non- infectious origin without acute organ dysfunction Status: Resolved Plan: Afebrile since 01/28 at 00:00. No obvious source of infection, however inflammatory response could be related to malignancy vs thrombosis vs septic thrombophlebitis. Chest x-ray (01/20): Stable from admission. Chest x-ray (01/27): Stable, no acute process. Urinalysis (01/20): Negative leukocyte esterase and nitrite, large occult blood, 100 protein, rare bacteria. Urinalysis (01/27): 2 RBC, negative for infection. Blood cultures (01/21): No growth to date. Blood cultures (01/26): No growth to date. Antibiotic history: -Vancomycin () -Cefepime 2g 24H () Monitor vitals, if new symptoms need to workup further and may need antibiotics. Tylenol PRN fevers. Continue incentive spirometry. Physical therapy, OOB. (2) Pain in both lower legs Code(s): M79.661 - Pain in right lower leg; M79.662 - Pain in left lower leg Status: Resolved Plan: Patient presented with worsening pain and weakness in bilateral legs. Upon further discussion with patient, had signs and symptoms of peripheral arterial disease. Also, with associated neuropathy and weakness upon admission. Aorta CTA shows severe atherosclerotic disease with severe narrowing of distal aorta, mural thrombus at level of distal aorta and infarction of the inferior right kidney MRI with no acute findings. Cervical MRI shows stenosis. Thoracic MRI with possible drop mets. Repeat thoracic MRI shows slight enhancement along spinal cord either nerve root enhancement or drop metastases. Lumbar MRI wnl. EEG wnl. CPK 520. Sacrum/Coccyx MRI: no acute plexus findings. 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 * Continue Lyrica 50mg BID. * Recommend LP, holding due to thrombocytopenia as well as anticoagulation; not candidate for chemo at this time. * Patient is not interested in having LP during this hospitalization. * EMG shows demyelinating sensory motor polyneuropathy. Vascular [id number] recs. * Pt has changes of decrease blood flow in feet. Throwing embolic material distally. * Post-op 01/25/18 from axillobifemoral bypass along with coiling proximal ilial flow. Tolerated procedure well. Feet warm and normal cap refill. Heme/onc consulted. * Treating HIT with argatroban. PT evaluating. * Recommend home health. Pain management: * Oxycodone 5mg q6H pain 1-10. * Morphine 1mg breakthrough pain. (3) Heparin induced thrombocytopenia Code(s): D75.82 - Heparin induced thrombocytopenia (HIT) Status: Acute Plan: Post-op from lobectomy and s/p heparin Heparin-induced thrombocytopenia antibody positive. Platelets stable today. No transfusion recommended at this time due to possibility of further coagulation. Hold all heparin forms. 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 * On argatroban gtt. * Once platelets>100, will then transition to Eliquis. (4) Dysmetria Code(s): R27.8 - Other lack of coordination Status: Acute Plan: Patient developed right upper extremity dysmetria after surgery. Has difficulty reaching object with his right hand when he goes to shake hands or reach for something. Sensation and pulses intact. MRI and MRA head without any acute change. Improving neuro function. Continue PT. Monitor symptoms. (5) Hypertension Code(s): I10 - Essential (primary) hypertension Status: Chronic Plan: Patient with BP up to 170s/70s post-op. Started on clonidine and nitro patch initially, d/c post-op. Monitor vitals Metoprolol 12.5mg BID. Clonidine PO PRN SBP>180. (6) EVON (acute kidney injury) Code(s): N17.9 - Acute kidney failure, unspecified Status: Acute Plan: Increasing serum creatinine during hospitalization. Admitted with Cr of 1.2. CMP from 06/28/17 with Cr of 0.95. Aortic CTA shows infarct of inferior pole of right kidney of unknown age. Cr stable. 1.6- 1.7 may new baseline. Monitor I/Os, urine output. Monitor BMP. Avoid nephrotoxic agents. Avoid further contrast studies if able. Renal consulted: * Suspect contrast nephrotoxicity. * Serum complements wnl; urine eosinophils negative. (7) Metastatic primary lung cancer Code(s): C34.90 - Malignant neoplasm of unspecified part of unspecified bronchus or lung Status: Chronic Plan: S/p chemo in November, s/p lobectomy. Recent PET scans negative. MRI spine shows possible mets. Repeat brain MRI with no acute change. Management per oncology team; discussing case with patients oncologist in [place] , Dr. Dillard. Regarding possible drop mets * Unsure of etiology at this time. Radiation oncology consulted * No therapy at this time due to low platelets. (8) Thrombosis of right saphenous vein Code(s): I82.811 - Embolism and thrombosis of superficial veins of right lower extremity Status: Acute Plan: Lower extremity superficial vein, generally benign and self-limited however a larger vein is involved in this case. Caution with propagation into the DVT system and PE possibility. Likely due to abnormal coagulation at this time. Elevation. Pain management. (9) Anemia Code(s): D64.9 - Anemia, unspecified Status: Acute Plan: No history of anemia per patient. Likely chronic anemia, patient at high risk for bleeding due to thrombocytopenia. Unsure of the exact cause, chemotherapy vs recent surgery vs chronic anemia. (10) Avascular necrosis of hip Code(s): M87.059 - Idiopathic aseptic necrosis of unspecified femur Status: Chronic Plan: MRI of sacrum revealed findings of avascular necrosis involving the right femoral head. No collapse. Patient reports chronic hip pain, nothing acute. Unsure etiology. Did receive IV steroids on 01/23. * Will hold further steroids at this time. * Continue to monitor. (11) Atrial fibrillation Code(s): I48.91 - Unspecified atrial fibrillation Status: Acute Plan: History of Afib. Controlled rate. Was diagnosed after previous surgery. 2/6 YANA murmur on exam, TR and MR seen on Echo. Echo shows EF of 50-55%, segmental wall motion abnormalities with hypokinesis. No episodes of Afib during admission; telemety d/c. Continue metoprolol. (12) Nutrition, metabolism, and development symptoms Code(s): R63.8 - Other symptoms and signs concerning food and fluid intake Status: Acute Plan: Fluids: * Tolerating PO. Electrolytes: * Monitor and replete as necessary. Nutrition: * Regular diet. DVT prophylaxis: Holding all heparin products, argatroban gtt. Incentive spirometry. <Roberta Echols V - 01/31/18 18:24> - Assessment and Plan 62 year old male with history of lung cancer with mets to brain, hypertension, atrial fibrillation presented on admission with bilateral leg pain/weakness. Admitted for workup. 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 Currently on argatroban gtt, awaiting improvement of platelets. Post-op from axillofemoral bypass with coiling. Pain and blood flow improved. Awaiting improvement of platelets for transition to oral anticoagulant. <Roberta Echols V - 01/31/18 18:34> Discussed Condition With: Dr. Elena and Dr. Ybarra <Roberta Echols V - 01/31/18 18:34> - Attending Attestation The exam, history, and the medical decision-making described in the above note were completed with the assistance of the resident physician. I reviewed and agree with the findings presented. I attest that I had a [id number] encounter with the patient on the same day, and personally performed and documented my assessment and findings in the medical record. <Jess Elena R - 02/01/18 15:14> <Roberta Echols V - Last Filed: 01/31/18 18:24> (9) Anemia Qualifiers: Anemia type: bone marrow failure Bone marrow failure anemia type: pancytopenia, antineoplastic chemotherapy-induced Qualified Code(s): D61.810 - Antineoplastic chemotherapy induced pancytopenia; T45.1X5A - Adverse effect of antineoplastic and immunosuppressive drugs, initial encounter (10) Avascular necrosis of hip Qualifiers: Laterality: right Qualified Code(s): M87.051 - Idiopathic aseptic necrosis of right femur <Jess Elena R - Last Filed: 02/01/18 15:14> (9) Anemia Qualifiers: Anemia type: bone marrow failure Bone marrow failure anemia type: pancytopenia, antineoplastic chemotherapy-induced Qualified Code(s): D61.810 - Antineoplastic chemotherapy induced pancytopenia; T45.1X5A - Adverse effect of antineoplastic and immunosuppressive drugs, initial encounter (10) Avascular necrosis of hip Qualifiers: Laterality: right Qualified Code(s): M87.051 - Idiopathic aseptic necrosis of right femur <Roberta Echols V - Last Filed: 01/31/18 18:24> (9) Anemia Qualifiers: Anemia type: bone marrow failure Bone marrow failure anemia type: pancytopenia, antineoplastic chemotherapy-induced Qualified Code(s): D61.810 - Antineoplastic chemotherapy induced pancytopenia; T45.1X5A - Adverse effect of antineoplastic and immunosuppressive drugs, initial encounter (10) Avascular necrosis of hip Qualifiers: Laterality: right Qualified Code(s): M87.051 - Idiopathic aseptic necrosis of right femur <Jess Elena R - Last Filed: 02/01/18 15:14> (9) Anemia Qualifiers: Anemia type: bone marrow failure Bone marrow failure anemia type: pancytopenia, antineoplastic chemotherapy-induced Qualified Code(s): D61.810 - Antineoplastic chemotherapy induced pancytopenia; T45.1X5A - Adverse effect of antineoplastic and immunosuppressive drugs, initial encounter (10) Avascular necrosis of hip Qualifiers: Laterality: right Qualified Code(s): M87.051 - Idiopathic aseptic necrosis of right femur
[2018-01-31] MEDS: Temazepam 15 MG Capsule PO PRN (20:14)
[2018-02-01 07:06] LABS: Baso # (Auto) 0.1 th/mm3 (0.0-0.2); Baso % (Auto) 1.1 % (0.0-2.0); Eos # (Auto) 0.6 th/mm3 (0.0-0.4); Eos % (Auto) 7.7 % (0.0-4.0); Hematocrit 24.3 % (39.0-51.0); Hemoglobin 8.1 gm/dL (13.0-17.0); Lymph # (Auto) 1.5 th/mm3 (1.0-4.8); Lymph % (Auto) 19.6 % (9.0-44.0); Mean Corpuscular HGB Conc 33.2 % (32.0-36.0); Mean Corpuscular Hemoglobin 29.8 pg (27.0-34.0); Mean Corpuscular Volume 89.9 fL (80.0-100.0); Mean Platelet Volume 8.6 fL (7.0-11.0); Mono % (Auto) 13.6 % (0.0-8.0); Neut # (Auto) 4.5 th/mm3 (1.8-7.7); Platelet Count 78 th/mm3 (150-450); Red Blood Count 2.71 mil/mm3 (4.50-5.90); Red Cell Distribution Width 17.5 % (11.6-17.2); White Blood Count 7.7 th/mm3 (4.0-11.0)
[2018-02-01 07:29] LABS: Calcium 8.3 mg/dL (8.5-10.1); Carbon Dioxide 28.5 meq/L (21.0-32.0)
[2018-02-01 08:27] LABS: Eosinophils 6 % (0-4); Lymphocytes 20 % (9-44); Metamyelocytes 1 % (0-1); Monocytes 10 % (0-8)
[2018-02-01 08:28] LABS: Platelet Morphology Normal (Normal)
[2018-02-01] MEDS: Metoprolol Tartrate 25 MG Tablet PO SCH ×2 (08:46→21:07)
[2018-02-01] MEDS: Folic Acid 1 MG Tablet PO SCH (08:46)
[2018-02-01] MEDS: Sodium Chloride 0.9% 2 ML Flush BID IV.FLUSH SCH ×2 (08:46→21:09)
[2018-02-01] MEDS: Budesonide-Formoterol 160/4.5 MCG 6 GM Inhaler INH SCH ×2 (08:47→21:08)
--- NOTE | 2018-02-01 12:07 | P.PNFP ---
Subjective Interval history: Patient was seen and evaluated this morning. He reports feeling well. Patient denies chest pain, heart palpitations, shortness of breath, nausea/vomiting, diarrhea and constipation. He denies lower extremity pain, weakness and numbness. He plans to work with PT today. Awaiting rise of platelet count above 100,000 to transition to oral anticoagulation. Patient still hopes to go home by Monday but understands that he will likely not go home until next week. All questions were answered. <Miladys Sifuentes - 02/01/18 14:19> Results - Labs Result diagrams: 02/01/18 06:27 02/01/18 06:27 <Jess Toro - 02/01/18 15:26> Abnormal lab results 02/01/18 02/01/18 02/01/18 Range/Units 06:27 06:27 06:27 RBC 2.71 L (4.50-5.90) mil/mm3 Hgb 8.1 L (13.0-17.0) gm/dL Hct 24.3 L (39.0-51.0) % RDW 17.5 H (11.6-17.2) % Plt Count 78 L (150-450) th/mm3 [place] % (Auto) 13.6 H (0.0-8.0) % Eos % (Auto) 7.7 H (0.0-4.0) % [place] # (Auto) 1.0 H (0.0-0.9) th/mm3 Eos # (Auto) 0.6 H (0.0-0.4) th/mm3 Monocytes % (Manual) 10 H (0-8) % Eosinophils % (Manual) 6 H (0-4) % Platelet Estimate Low L (Normal) APTT 66.2 H (24.3-30.1) sec Creatinine 1.62 H (0.60-1.30) mg/dL Estimated GFR 43 L (>89) mL/min Random Glucose 113 H (74-106) mg/dL Calcium 8.3 L (8.5-10.1) mg/dL Short CBC 02/01/18 Range/Units 06:27 WBC 7.7 (4.0-11.0) th/mm3 Hgb 8.1 L (13.0-17.0) gm/dL Hct 24.3 L (39.0-51.0) % Plt Count 78 L (150-450) th/mm3 BMP 02/01/18 06:27 Sodium 138 Potassium 4.0 Chloride 103 Carbon Dioxide 28.5 BUN 18 Creatinine 1.62 H Calcium 8.3 L <Jess Toro Bradley - 02/01/18 15:26> Abnormal lab results 02/01/18 02/01/18 02/01/18 Range/Units 06:27 06:27 06:27 RBC 2.71 L (4.50-5.90) mil/mm3 Hgb 8.1 L (13.0-17.0) gm/dL Hct 24.3 L (39.0-51.0) % RDW 17.5 H (11.6-17.2) % Plt Count 78 L (150-450) th/mm3 [place] % (Auto) 13.6 H (0.0-8.0) % Eos % (Auto) 7.7 H (0.0-4.0) % [place] # (Auto) 1.0 H (0.0-0.9) th/mm3 Eos # (Auto) 0.6 H (0.0-0.4) th/mm3 Monocytes % (Manual) 10 H (0-8) % Eosinophils % (Manual) 6 H (0-4) % Platelet Estimate Low L (Normal) APTT 66.2 H (24.3-30.1) sec Creatinine 1.62 H (0.60-1.30) mg/dL Estimated GFR 43 L (>89) mL/min Random Glucose 113 H (74-106) mg/dL Calcium 8.3 L (8.5-10.1) mg/dL Short CBC 02/01/18 Range/Units 06:27 WBC 7.7 (4.0-11.0) th/mm3 Hgb 8.1 L (13.0-17.0) gm/dL Hct 24.3 L (39.0-51.0) % Plt Count 78 L (150-450) th/mm3 [facility] 02/01/18 06:27 Sodium 138 Potassium 4.0 Chloride 103 Carbon Dioxide 28.5 BUN 18 Creatinine 1.62 H Calcium 8.3 L <Miladys Sifuentes - 02/01/18 14:19> Physical Exam Vital signs: Vital Signs 01/31/18 16:00 01/31/18 20:00 02/01/18 00:57 Temperature 98.5 F 99.4 F 98.8 F Pulse Rate 78 83 80 Respiratory Rate 17 16 16 Blood Pressure 127/69 111/57 L 124/61 Pulse Oximetry 97 97 96 02/01/18 08:00 02/01/18 12:00 Temperature 98.3 F 97.0 F L Pulse Rate 79 76 Respiratory Rate 16 16 Blood Pressure 117/62 117/61 Pulse Oximetry 96 97 Intake & Output 01/31/18 02/01/18 02/01/18 18:59 06:59 18:59 Intake Total 1151 / 1151 1999 250 / 250 Balance 1151 / 1151 1999 250 / 250 Weight 71 kg Intake: IV 151 / 151 250 / 250 Novastan Inj 250 MG In NS Inj 151 / 151 250 / 250 247.5 ML @ Per Protocol IV.CONT TITRATE PRN Rx#:[id number] Oral 1000 / 1000 1999 Other: # Voids 800 1,200 Date of Last Bowel Movement 01/29/18 # Bowel Movements 1 <Jess Toro - 02/01/18 15:26> Vital Signs 01/31/18 16:00 01/31/18 20:00 02/01/18 00:57 Temperature 98.5 F 99.4 F 98.8 F Pulse Rate 78 83 80 Respiratory Rate 17 16 16 Blood Pressure 127/69 111/57 L 124/61 Pulse Oximetry 97 97 96 02/01/18 08:00 Temperature 98.3 F Pulse Rate 79 Respiratory Rate 16 Blood Pressure 117/62 Pulse Oximetry 96 Intake & Output 01/31/18 02/01/18 02/01/18 18:59 06:59 18:59 Intake Total 1151 / 1151 1999 Balance 1151 / 1151 1999 Weight 71 kg Intake: IV 151 / 151 Novastan Inj 250 MG In NS Inj 151 / 151 247.5 ML @ Per Protocol IV.CONT TITRATE PRN Rx#:[id number] Oral 1000 / 1000 1999 Other: # Voids 800 1,200 Date of Last Bowel Movement 01/29/18 # Bowel Movements 1 <Miladys Sifuentes - 02/01/18 12:07> Narrative: GENERAL: Sitting in chair, NAD. SKIN: Warm and dry. Incisions dry with no drainage. Resolving ecchymotic region left anterior lower holland, nontender, no palpable cord or warmth. CARDIOVASCULAR: Regular rate and rhythm. 2/6 systolic ejection murmur present. RESPIRATORY: No accessory muscle use. Clear to auscultation. Breath sounds equal bilaterally with decreased breath sounds in bases bilaterally. No wheezes , crackles, rales. GASTROINTESTINAL: Normal bowel sounds. Abdomen soft, non-tender, nondistended. MUSCULOSKELETAL: Extremities warm to touch. No edema or cyanosis. NEUROLOGICAL: Awake and alert. Normal speech. CN II-XII grossly intact. PSYCHIATRIC: Appropriate mood and affect; insight and judgment normal. <Miladys Sifuentes - 02/01/18 14:19> - Urinary Catheter Management Indwelling Urethral Catheter Cath placed during this visit: no <GurupauJess - 02/01/18 15:26> yes, but has since been removed by the nurse <Miladys Sifuentes - 02/01/18 14:19> Reason for continuing: Decision to DC catheter <Miladys Sifuentes - 02/01/18 12: 07> Insertion date: 01/25/18 <Miladys Sifuentes - 02/01/18 12:07> Insertion time: 12:59 <Miladys Sifuentes 02/01/18 12:07> Removal date: 01/26/18 <Miladys Sifuentes - 02/01/18 12:07> Removal time: 17:00 <Miladys Sifuentes 02/01/18 12:07> Assessment and Plan - Assessment (1) SIRS (systemic inflammatory response syndrome) Code(s): R65.10 - Systemic inflammatory response syndrome (SIRS) of non- infectious origin without acute organ dysfunction Status: Resolved (2) Pain in both lower legs Code(s): M79.661 - Pain in right lower leg; M79.662 - Pain in left lower leg Status: Resolved (3) Heparin induced thrombocytopenia Code(s): D75.82 - Heparin induced thrombocytopenia (HIT) Status: Acute (4) Dysmetria Code(s): R27.8 - Other lack of coordination Status: Acute (5) Hypertension Code(s): I10 - Essential (primary) hypertension Status: Chronic (6) EVON (acute kidney injury) Code(s): N17.9 - Acute kidney failure, unspecified Status: Acute (7) Metastatic primary lung cancer Code(s): C34.90 - Malignant neoplasm of unspecified part of unspecified bronchus or lung Status: Chronic (8) Thrombosis of right saphenous vein Code(s): I82.811 - Embolism and thrombosis of superficial veins of right lower extremity Status: Acute (9) Anemia Code(s): D64.9 - Anemia, unspecified Status: Acute (10) Avascular necrosis of hip Code(s): M87.059 - Idiopathic aseptic necrosis of unspecified femur Status: Chronic (11) Atrial fibrillation Code(s): I48.91 - Unspecified atrial fibrillation Status: Acute (12) Nutrition, metabolism, and development symptoms Code(s): R63.8 - Other symptoms and signs concerning food and fluid intake Status: Acute <Jess Toro R - 02/01/18 15:26> (1) SIRS (systemic inflammatory response syndrome) Code(s): R65.10 - Systemic inflammatory response syndrome (SIRS) of non- infectious origin without acute organ dysfunction Status: Resolved Plan: Afebrile since 01/28 at 00:00. No obvious source of infection, however inflammatory response could be related to malignancy vs thrombosis vs septic thrombophlebitis. Chest x-ray (01/20): Stable from admission. Chest x-ray (01/27): Stable, no acute process. Urinalysis (01/20): Negative leukocyte esterase and nitrite, large occult blood, 100 protein, rare bacteria. Urinalysis (01/27): 2 RBC, negative for infection. Blood cultures (01/21): No growth to date. Blood cultures (01/26): No growth to date. Antibiotic history: -Vancomycin (01/21-) -Cefepime 2g 24H () Monitor vitals, if new symptoms need to workup further and may need antibiotics. Tylenol PRN fevers. Continue incentive spirometry. Physical therapy, OOB. (2) Pain in both lower legs Code(s): M79.661 - Pain in right lower leg; M79.662 - Pain in left lower leg Status: Resolved Plan: Patient presented with worsening pain and weakness in bilateral legs. Upon further discussion with patient, had signs and symptoms of peripheral arterial disease. Also, with associated neuropathy and weakness upon admission. Aorta CTA shows severe atherosclerotic disease with severe narrowing of distal aorta, mural thrombus at level of distal aorta and infarction of the inferior right kidney MRI with no acute findings. Cervical MRI shows stenosis. Thoracic MRI with possible drop mets. Repeat thoracic MRI shows slight enhancement along spinal cord either nerve root enhancement or drop metastases. Lumbar MRI wnl. EEG wnl. CPK 520. Sacrum/Coccyx MRI: no acute plexus findings. 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 * Continue Lyrica 50mg BID. * Recommend LP, holding due to thrombocytopenia as well as anticoagulation; not candidate for chemo at this time. * Patient is not interested in having LP during this hospitalization. * EMG shows demyelinating sensory motor polyneuropathy. Vascular [id number] recs. * Pt has changes of decrease blood flow in feet. Throwing embolic material distally. * Post-op 01/25/18 from axillobifemoral bypass along with coiling proximal ilial flow. Tolerated procedure well. Feet warm and normal cap refill. Heme/onc consulted. * Treating HIT with argatroban. PT evaluating. * Recommend home health. Pain management: * Oxycodone 5mg q6H pain 1-10. * Morphine 1mg breakthrough pain. (3) Heparin induced thrombocytopenia Code(s): D75.82 - Heparin induced thrombocytopenia (HIT) Status: Acute Plan: Post-op from lobectomy and s/p heparin Heparin-induced thrombocytopenia antibody positive. Platelets rising today. No transfusion recommended at this time due to possibility of further coagulation. Hold all heparin forms. 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 * On argatroban gtt. * Once platelets>100, will then transition to Eliquis. (4) Dysmetria Code(s): R27.8 - Other lack of coordination Status: Acute Plan: Patient developed right upper extremity dysmetria after surgery. Has difficulty reaching object with his right hand when he goes to shake hands or reach for something. Sensation and pulses intact. MRI and MRA head without any acute change. Improving neuro function. Continue PT. Monitor symptoms. (5) Hypertension Code(s): I10 - Essential (primary) hypertension Status: Chronic Plan: Patient with BP up to 170s/70s post-op. Started on clonidine and nitro patch initially, d/c post-op. Monitor vitals Metoprolol 12.5mg BID. Clonidine PO PRN SBP>180. (6) EVON (acute kidney injury) Code(s): N17.9 - Acute kidney failure, unspecified Status: Acute Plan: Increasing serum creatinine during hospitalization. Admitted with Cr of 1.2. CMP from 06/28/17 with Cr of 0.95. Aortic CTA shows infarct of inferior pole of right kidney of unknown age. Cr stable. 1.6- 1.7 may new baseline. Monitor I/Os, urine output. Monitor BMP. Avoid nephrotoxic agents. Avoid further contrast studies if able. Renal consulted: * Suspect contrast nephrotoxicity. * Serum complements wnl; urine eosinophils negative. (7) Metastatic primary lung cancer Code(s): C34.90 - Malignant neoplasm of unspecified part of unspecified bronchus or lung Status: Chronic Plan: S/p chemo in November, s/p lobectomy. Recent PET scans negative. MRI spine shows possible mets. Repeat brain MRI with no acute change. Management per oncology team; discussing case with patients oncologist in [place] , Dr. Dillard. Regarding possible drop mets * Unsure of etiology at this time. Radiation oncology consulted * No therapy at this time due to low platelets. (8) Thrombosis of right saphenous vein Code(s): I82.811 - Embolism and thrombosis of superficial veins of right lower extremity Status: Acute Plan: Lower extremity superficial vein, generally benign and self-limited however a larger vein is involved in this case. Caution with propagation into the DVT system and PE possibility. Likely due to abnormal coagulation at this time. Elevation. Pain management. (9) Anemia Code(s): D64.9 - Anemia, unspecified Status: Acute Plan: No history of anemia per patient. Likely chronic anemia, patient at high risk for bleeding due to thrombocytopenia. Unsure of the exact cause, chemotherapy vs recent surgery vs chronic anemia. (10) Avascular necrosis of hip Code(s): M87.059 - Idiopathic aseptic necrosis of unspecified femur Status: Chronic Plan: MRI of sacrum revealed findings of avascular necrosis involving the right femoral head. No collapse. Patient reports chronic hip pain, nothing acute. Unsure etiology. Did receive IV steroids on 01/23. * Will hold further steroids at this time. * Continue to monitor. (11) Atrial fibrillation Code(s): I48.91 - Unspecified atrial fibrillation Status: Acute Plan: History of Afib. Controlled rate. Was diagnosed after previous surgery. 2/6 YANA murmur on exam, TR and MR seen on Echo. Echo shows EF of 50-55%, segmental wall motion abnormalities with hypokinesis. No episodes of Afib during admission; telemety d/c. Continue metoprolol. (12) Nutrition, metabolism, and development symptoms Code(s): R63.8 - Other symptoms and signs concerning food and fluid intake Status: Acute Plan: Fluids: * Tolerating PO. Electrolytes: * Monitor and replete as necessary. Nutrition: * Regular diet. DVT prophylaxis: Holding all heparin products, argatroban gtt. Incentive spirometry. <Miladys Sifuentes - 02/01/18 14:13> - Assessment and Plan 62 year old male with history of lung cancer with mets to brain, hypertension, atrial fibrillation presented on admission with bilateral leg pain/weakness. Admitted for workup. 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 Currently on argatroban gtt, awaiting improvement of platelets. Post-op from axillofemoral bypass with coiling. Pain and blood flow improved. Awaiting improvement of platelets for transition to oral anticoagulant. <Miladys Sifuentes - 02/01/18 14:19> - Attending Attestation The exam, history, and the medical decision-making described in the above note were completed with the assistance of the resident physician. I reviewed and agree with the findings presented. I attest that I had a [id number] encounter with the patient on the same day, and personally performed and documented my assessment and findings in the medical record. <Jess Toro - 02/01/18 15:26> <Miladys Sifuentes - Last Filed: 02/01/18 14:13> (9) Anemia Qualifiers: Anemia type: bone marrow failure Bone marrow failure anemia type: pancytopenia, antineoplastic chemotherapy-induced Qualified Code(s): D61.810 - Antineoplastic chemotherapy induced pancytopenia; T45.1X5A - Adverse effect of antineoplastic and immunosuppressive drugs, initial encounter (10) Avascular necrosis of hip Qualifiers: Laterality: right Qualified Code(s): M87.051 - Idiopathic aseptic necrosis of right femur <Jess Toro - Last Filed: 02/01/18 15:26> (9) Anemia Qualifiers: Anemia type: bone marrow failure Bone marrow failure anemia type: pancytopenia, antineoplastic chemotherapy-induced Qualified Code(s): D61.810 - Antineoplastic chemotherapy induced pancytopenia; T45.1X5A - Adverse effect of antineoplastic and immunosuppressive drugs, initial encounter (10) Avascular necrosis of hip Qualifiers: Laterality: right Qualified Code(s): M87.051 - Idiopathic aseptic necrosis of right femur <LabelMiladys jolley - Last Filed: 02/01/18 14:13> (9) Anemia Qualifiers: Anemia type: bone marrow failure Bone marrow failure anemia type: pancytopenia, antineoplastic chemotherapy-induced Qualified Code(s): D61.810 - Antineoplastic chemotherapy induced pancytopenia; T45.1X5A - Adverse effect of antineoplastic and immunosuppressive drugs, initial encounter (10) Avascular necrosis of hip Qualifiers: Laterality: right Qualified Code(s): M87.051 - Idiopathic aseptic necrosis of right femur <Jess Toro - Last Filed: 02/01/18 15:26> (9) Anemia Qualifiers: Anemia type: bone marrow failure Bone marrow failure anemia type: pancytopenia, antineoplastic chemotherapy-induced Qualified Code(s): D61.810 - Antineoplastic chemotherapy induced pancytopenia; T45.1X5A - Adverse effect of antineoplastic and immunosuppressive drugs, initial encounter (10) Avascular necrosis of hip Qualifiers: Laterality: right Qualified Code(s): M87.051 - Idiopathic aseptic necrosis of right femur
--- NOTE | 2018-02-01 13:26 | P.PNONC ---
Subjective Interval history: Pt resting comfortably in bed. No complaints at this time. He has been ambulating without difficulty. He is eager to go home, however aware that his platelets must be above 100,000 prior to converting to oral anticoagulant. Denies any bleeding or leg pain. Has good appetite. Objective Vital Signs/Intake & Output: Vital Signs 01/31/18 16:00 01/31/18 20:00 02/01/18 00:57 Temperature 98.5 F 99.4 F 98.8 F Pulse Rate 78 83 80 Respiratory Rate 17 16 16 Blood Pressure 127/69 111/57 L 124/61 Pulse Oximetry 97 97 96 02/01/18 08:00 02/01/18 12:00 Temperature 98.3 F 97.0 F L Pulse Rate 79 76 Respiratory Rate 16 16 Blood Pressure 117/62 117/61 Pulse Oximetry 96 97 Intake & Output 01/31/18 02/01/18 02/01/18 18:59 06:59 18:59 Intake Total 1151 / 1151 1999 Balance 1151 / 1151 1999 Weight 71 kg Intake: IV 151 / 151 Novastan Inj 250 MG In NS Inj 151 / 151 247.5 ML @ Per Protocol IV.CONT TITRATE PRN Rx#:[id number] Oral 1000 / 1000 1999 Other: # Voids 800 1,200 Date of Last Bowel Movement 01/29/18 # Bowel Movements 1 Result Diagrams: 02/01/18 06:27 02/01/18 06:27 Laboratory Results: Laboratory Results - last 24 hr 02/01/18 02/01/18 02/01/18 06:27 06:27 06:27 WBC 7.7 RBC 2.71 L Hgb 8.1 L Hct 24.3 L MCV 89.9 MCH 29.8 MCHC 33.2 RDW 17.5 H Plt Count 78 L MPV 8.6 Prelim Diff (Auto) Slide review pending Neut % (Auto) 58.0 Lymph % (Auto) 19.6 [place] % (Auto) 13.6 H Eos % (Auto) 7.7 H Baso % (Auto) 1.1 Neut # (Auto) 4.5 Lymph # (Auto) 1.5 [place] # (Auto) 1.0 H Eos # (Auto) 0.6 H Baso # (Auto) 0.1 WBC Differential Manual diff final Seg Neuts % (Manual) 61 Lymphocytes % (Manual) 20 Monocytes % (Manual) 10 H Eosinophils % (Manual) 6 H Basophils % (Manual) 2 Metamyelocytes % (Man) 1 Abs Neuts (Manual) 4.8 Differential Comment . Platelet Estimate Low L Platelet Morphology Normal APTT 66.2 H Sodium 138 Potassium 4.0 Chloride 103 Carbon Dioxide 28.5 Anion Gap 7 BUN 18 Creatinine 1.62 H Estimated GFR 43 L Random Glucose 113 H Calcium 8.3 L Culture Results: Microbiology 01/27/18 12:05 Aerobic Blood Culture - Final Blood - Peripheral No growth in 5 days Anaerobic Blood Culture - Final No growth in 5 days 01/27/18 12:00 Aerobic Blood Culture - Final Blood - Peripheral No growth in 5 days Anaerobic Blood Culture - Final No growth in 5 days Medications: Active Medications Generic Name Dose Route Start Last Admin Trade Name Freq PRN Reason Stop Dose Admin Acetaminophen 650 mg 01/27/18 08:52 01/29/18 14:19 Tylenol PO 650 mg Q4H PRN Administration Temp > 100.4 Al Hydroxide/Mg Hydroxide 30 ml 01/17/18 14:19 01/23/18 20:34 Milk Of Magnesia Liq PO 30 ml Q12H PRN Administration Mild Constipation Budesonide/Formoterol Fumarate 2 puff 01/17/18 14:00 02/01/18 08:47 Symbicort 160/4.5 Mcg Inh INH 2 puff BID SHAVONNE Administration Folic Acid 1 mg 01/17/18 13:45 02/01/18 08:46 Folic Acid PO 1 mg DAILY SHAVONNE Administration Argatroban 250 mg/ Sodium 250 mls @ 0 mls/hr 01/18/18 15:00 01/31/18 08:46 Chloride IV.CONT 2.12 mcg/kg/min TITRATE PRN 8.8 mls/hr Per Protocol Administration Protocol Per Protocol Metoprolol Tartrate 12.5 mg 01/28/18 09:00 02/01/18 08:46 Lopressor PO 12.5 mg BID SHAVONNE Administration Morphine Sulfate 1 mg 01/26/18 10:08 01/28/18 18:24 Morphine Inj IV.PUSH 1 mg Q6HR PRN Administration PAIN 6-10;IF UNABLE TO TAKE PO Oxycodone HCl 5 mg 01/28/18 18:50 02/01/18 10:59 Roxicodone PO 5 mg Q6H PRN Administration PAIN SCALE 1 TO 10 Sennosides 17.2 mg 01/17/18 14:08 01/21/18 22:30 Senokot PO 17.2 mg Q12H PRN Administration Moderate Constipation Sodium Chloride 2 ml 01/17/18 11:17 01/20/18 20:43 Ns Flush IV.FLUSH 2 ml PRN PRN Administration FLUSH AFTER USING IV ACCESS Sodium Chloride 2 ml 01/31/18 09:00 02/01/18 08:46 Ns Flush IV.FLUSH Not Given BID SHAVONNE Temazepam 15 mg 01/17/18 21:00 01/31/18 20:14 Restoril PO 15 mg HS PRN Administration INSOMNIA Objective Remarks: GENERAL: Middle-aged male patient, sitting in bed, in no acute distress. SKIN: Warm and dry. Petechiae to left lateral calf, fading. HEAD: Normocephalic. EYES: No scleral icterus. No injection or drainage. NECK: Supple, trachea midline. CARDIOVASCULAR: +S1/S2 without murmurs. RESPIRATORY: Anterior breath sounds clear, non-labored. GASTROINTESTINAL: Abdomen soft, non-tender, nondistended. EXTREMITIES: No cyanosis or edema. Feet/toes warm to touch. Tiny area of rubor at tips of great toes. MUSCULOSKELETAL: Adequate muscle tone. NEUROLOGICAL: No obvious focal deficit. Awake, alert, and oriented x3. 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 Bernstein is a pleasant 62-year-old gentleman with a history of non-small cell lung cancer with brain metastasis, status post craniotomy with resection followed by stereotactic radiosurgery with gamma knife, 3-4 cycles of preop Immunochemotherapy with 2 doses of Platinol and Alimta he also underwent thoracotomy and resection of the left upper lobe and wedge resection of the left lower lobe on 01/01/2018. Patient had minimal residual disease of 0.6 cm and also the lymph nodes were negative. Margins were also negative. During this admission the patient was found to have severe thrombocytopenia. Patient did have recent exposure to subcutaneous heparin after his recent surgery. Plan: 1. Continue Argatroban drip, platelets increased to 78k today. Once platelets are greater than 100,000 we can bridge argatroban to oral anticoagulant. 2. Continue to monitor for bleeding. 3. Continue supportive care.
[2018-02-01] MEDS: Argatroban Inj 250 MG in Sodium Chlor 0.9% Inj 247.5 ML IV.CONT PRN (14:22)
[2018-02-01] MEDS: Temazepam 15 MG Capsule PO PRN (21:07)
[2018-02-01] MEDS: Morphine Sulfate Inj 2 MG/ML Vial IV.PUSH PRN (21:15)
[2018-02-02 06:01] LABS: Hematocrit 23.4 % (39.0-51.0); Hemoglobin 7.8 gm/dL (13.0-17.0); Mean Corpuscular HGB Conc 33.2 % (32.0-36.0); Mean Corpuscular Hemoglobin 29.6 pg (27.0-34.0); Mean Corpuscular Volume 89.2 fL (80.0-100.0); Mean Platelet Volume 7.8 fL (7.0-11.0); Platelet Count 80 th/mm3 (150-450); Red Blood Count 2.62 mil/mm3 (4.50-5.90); Red Cell Distribution Width 17.6 % (11.6-17.2); White Blood Count 8.2 th/mm3 (4.0-11.0)
[2018-02-02 06:26] LABS: Calcium 8.5 mg/dL (8.5-10.1); Carbon Dioxide 28.3 meq/L (21.0-32.0); Potassium 4.3 meq/L (3.5-5.1)
[2018-02-02] MEDS: Morphine Sulfate Inj 2 MG/ML Vial IV.PUSH PRN (07:25)
[2018-02-02] MEDS: Folic Acid 1 MG Tablet PO SCH (08:52)
[2018-02-02] MEDS: Metoprolol Tartrate 25 MG Tablet PO SCH ×2 (08:52→20:27)
[2018-02-02] MEDS: Budesonide-Formoterol 160/4.5 MCG 6 GM Inhaler INH SCH ×2 (08:53→20:27)
[2018-02-02] MEDS: Sodium Chloride 0.9% 2 ML Flush BID IV.FLUSH SCH ×2 (08:53→20:27)
--- NOTE | 2018-02-02 09:49 | P.PNFP ---
Subjective Interval history: Patient was seen and evaluated this morning. Per , patient had a rough night ; he had difficulty getting comfortable in bed and required morphine to allow him to fall asleep. Patient has not complained of chest pain, heart palpitations, shortness of breath, nausea/vomiting, diarrhea and constipation. Awaiting rise of platelet count above 100,000 to transition to oral anticoagulation. All questions were answered. <Patricia Sifuentesstin - 02/02/18 12:03> Results - Labs Result diagrams: 02/02/18 05:43 02/02/18 05:43 <Jess Toro - 02/02/18 13:47> Abnormal lab results 02/02/18 02/02/18 02/02/18 Range/Units 05:43 05:43 05:43 RBC 2.62 L (4.50-5.90) mil/mm3 Hgb 7.8 L (13.0-17.0) gm/dL Hct 23.4 L (39.0-51.0) % RDW 17.6 H (11.6-17.2) % Plt Count 80 L (150-450) th/mm3 APTT 64.8 H (24.3-30.1) sec Creatinine 1.63 H (0.60-1.30) mg/dL Estimated GFR 43 L (>89) mL/min Short CBC 02/02/18 Range/Units 05:43 WBC 8.2 (4.0-11.0) th/mm3 Hgb 7.8 L (13.0-17.0) gm/dL Hct 23.4 L (39.0-51.0) % Plt Count 80 L (150-450) th/mm3 [facility] 02/02/18 05:43 Sodium 137 Potassium 4.3 Chloride 102 Carbon Dioxide 28.3 BUN 18 Creatinine 1.63 H Calcium 8.5 <Jess Toro - 02/02/18 13:47> Abnormal lab results 02/02/18 02/02/18 02/02/18 Range/Units 05:43 05:43 05:43 RBC 2.62 L (4.50-5.90) mil/mm3 Hgb 7.8 L (13.0-17.0) gm/dL Hct 23.4 L (39.0-51.0) % RDW 17.6 H (11.6-17.2) % Plt Count 80 L (150-450) th/mm3 APTT 64.8 H (24.3-30.1) sec Creatinine 1.63 H (0.60-1.30) mg/dL Estimated GFR 43 L (>89) mL/min Short CBC 02/02/18 Range/Units 05:43 WBC 8.2 (4.0-11.0) th/mm3 Hgb 7.8 L (13.0-17.0) gm/dL Hct 23.4 L (39.0-51.0) % Plt Count 80 L (150-450) th/mm3 BMP 02/02/18 05:43 Sodium 137 Potassium 4.3 Chloride 102 Carbon Dioxide 28.3 BUN 18 Creatinine 1.63 H Calcium 8.5 <Miladys Sifuentes - 02/02/18 09:49> Physical Exam Vital signs: Vital Signs 02/01/18 16:00 02/01/18 20:00 02/02/18 00:00 Temperature 97.9 F 97.7 F 98.3 F Pulse Rate 78 78 75 Respiratory Rate 16 17 16 Blood Pressure 111/61 104/54 L 101/57 L Pulse Oximetry 96 99 96 02/02/18 08:00 02/02/18 12:00 Temperature 97.4 F L 97.6 F Pulse Rate 73 94 H Respiratory Rate 16 17 Blood Pressure 117/64 111/67 Pulse Oximetry 97 99 Intake & Output 02/01/18 02/02/18 02/02/18 18:59 06:59 18:59 Intake Total 1550 / 1550 600 / 600 Output Total 900 / 900 Balance 650 / 650 600 / 600 Weight 70.9 kg Intake: IV 250 / 250 Novastan Inj 250 MG In NS Inj 250 / 250 247.5 ML @ Per Protocol IV.CONT TITRATE PRN Rx#:[id number] Oral 1300 / 1300 600 / 600 Output: Urine 900 / 900 Stool 0 / 0 Other: # Voids 5 <Jess Toro - 02/02/18 13:47> Vital Signs 02/01/18 12:00 02/01/18 16:00 02/01/18 20:00 Temperature 97.0 F L 97.9 F 97.7 F Pulse Rate 76 78 78 Respiratory Rate 16 16 17 Blood Pressure 117/61 111/61 104/54 L Pulse Oximetry 97 96 99 02/02/18 00:00 02/02/18 08:00 Temperature 98.3 F 97.4 F L Pulse Rate 75 73 Respiratory Rate 16 16 Blood Pressure 101/57 L 117/64 Pulse Oximetry 96 97 Intake & Output 02/01/18 02/02/18 02/02/18 18:59 06:59 18:59 Intake Total 1550 / 1550 600 / 600 Output Total 900 / 900 Balance 650 / 650 600 / 600 Weight 70.9 kg Intake: IV 250 / 250 Novastan Inj 250 MG In NS Inj 250 / 250 247.5 ML @ Per Protocol IV.CONT TITRATE PRN Rx#:[id number] Oral 1300 / 1300 600 / 600 Output: Urine 900 / 900 Stool 0 / 0 Other: # Voids 5 <Miladys Sifuentes - 02/02/18 09:49> Narrative: GENERAL: Sitting in chair, NAD. SKIN: Warm and dry. Incisions dry with no drainage. Resolving ecchymotic region left anterior lower holland, nontender, no palpable cord or warmth. CARDIOVASCULAR: Regular rate and rhythm. 2/6 systolic ejection murmur present. RESPIRATORY: No accessory muscle use. Clear to auscultation. Breath sounds equal bilaterally with decreased breath sounds in bases bilaterally. No wheezes , crackles, rales. GASTROINTESTINAL: Normal bowel sounds. Abdomen soft, non-tender, nondistended. MUSCULOSKELETAL: Extremities warm to touch. No edema or cyanosis. NEUROLOGICAL: Awake and alert. Normal speech. CN II-XII grossly intact. PSYCHIATRIC: Appropriate mood and affect; insight and judgment normal. <Miladys Sifuentes - 02/02/18 12:03> - Urinary Catheter Management Indwelling Urethral Catheter Cath placed during this visit: no <Jess Toro - 02/02/18 13:47> yes, but has since been removed by the nurse <Miladys Sifuentes - 02/02/18 12:03> Reason for continuing: Decision to DC catheter <Miladys Sifuentes - 02/02/18 09: 49> Insertion date: 01/25/18 <Miladys Sifuentes 02/02/18 09:49> Insertion time: 12:59 <Miladys Sifuentes 02/02/18 09:49> Removal date: 01/26/18 <Miladys Sifuentes - 02/02/18 09:49> Removal time: 17:00 <Miladys Sifuentes - 02/02/18 09:49> Assessment and Plan - Assessment (1) Pain in both lower legs Code(s): M79.661 - Pain in right lower leg; M79.662 - Pain in left lower leg Status: Resolved (2) Heparin induced thrombocytopenia Code(s): D75.82 - Heparin induced thrombocytopenia (HIT) Status: Acute (3) Dysmetria Code(s): R27.8 - Other lack of coordination Status: Acute (4) Hypertension Code(s): I10 - Essential (primary) hypertension Status: Chronic (5) EVON (acute kidney injury) Code(s): N17.9 - Acute kidney failure, unspecified Status: Acute (6) Metastatic primary lung cancer Code(s): C34.90 - Malignant neoplasm of unspecified part of unspecified bronchus or lung Status: Chronic (7) Thrombosis of right saphenous vein Code(s): I82.811 - Embolism and thrombosis of superficial veins of right lower extremity Status: Acute (8) Anemia Code(s): D64.9 - Anemia, unspecified Status: Acute (9) Avascular necrosis of hip Code(s): M87.059 - Idiopathic aseptic necrosis of unspecified femur Status: Chronic (10) Atrial fibrillation Code(s): I48.91 - Unspecified atrial fibrillation Status: Chronic (11) Nutrition, metabolism, and development symptoms Code(s): R63.8 - Other symptoms and signs concerning food and fluid intake Status: Acute <Jess Toro - 02/02/18 13:47> (1) Pain in both lower legs Code(s): M79.661 - Pain in right lower leg; M79.662 - Pain in left lower leg Status: Resolved Plan: Patient presented with worsening pain and weakness in bilateral legs. Upon further discussion with patient, had signs and symptoms of peripheral arterial disease. Also, with associated neuropathy and weakness upon admission. Aorta CTA shows severe atherosclerotic disease with severe narrowing of distal aorta, mural thrombus at level of distal aorta and infarction of the inferior right kidney MRI with no acute findings. Cervical MRI shows stenosis. Thoracic MRI with possible drop mets. Repeat thoracic MRI shows slight enhancement along spinal cord either nerve root enhancement or drop metastases. Lumbar MRI wnl. EEG wnl. CPK 520. Sacrum/Coccyx MRI: no acute plexus findings. 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 * Recommend LP, holding due to thrombocytopenia as well as anticoagulation; not candidate for chemo at this time. * Patient is not interested in having LP during this hospitalization. * EMG shows demyelinating sensory motor polyneuropathy. Vascular consulted-appreciate recs. * Post-op 01/25/18 from axillobifemoral bypass along with coiling proximal ilial flow. Tolerated procedure well. Feet warm and normal cap refill. Heme/onc consulted. * Treating HIT with argatroban. PT evaluating. * Recommend home health. Pain management: * Tylenol 650mg PO q4hr. * Oxycodone 5mg PO q4hr pain 1-10. * Morphine 1mg IV breakthrough pain. (2) Heparin induced thrombocytopenia Code(s): D75.82 - Heparin induced thrombocytopenia (HIT) Status: Acute Plan: Post-op from lobectomy and s/p heparin Heparin-induced thrombocytopenia antibody positive. Platelets rising today. No transfusion recommended at this time due to possibility of further coagulation. Hold all heparin forms. 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 * On argatroban gtt. * Once platelets>100, will then transition to Eliquis 5mg BID. (3) Dysmetria Code(s): R27.8 - Other lack of coordination Status: Acute Plan: Patient developed right upper extremity dysmetria after surgery. Has difficulty reaching object with his right hand when he goes to shake hands or reach for something. Sensation and pulses intact. MRI and MRA head without any acute change. Improving neuro function. Continue PT. Monitor symptoms. (4) Hypertension Code(s): I10 - Essential (primary) hypertension Status: Chronic Plan: Patient with BP up to 170s/70s post-op. Started on clonidine and nitro patch initially, d/c post-op. Monitor vitals Metoprolol 12.5mg BID. Clonidine PO PRN SBP>180. (5) EVON (acute kidney injury) Code(s): N17.9 - Acute kidney failure, unspecified Status: Acute Plan: Increasing serum creatinine during hospitalization. Admitted with Cr of 1.2. CMP from 06/28/17 with Cr of 0.95. Aortic CTA shows infarct of inferior pole of right kidney of unknown age. Cr stable. 1.6- 1.7 may new baseline. Monitor I/Os, urine output. Monitor BMP. Avoid nephrotoxic agents. Avoid further contrast studies if able. Renal consulted: * Suspect contrast nephrotoxicity. * Serum complements wnl; urine eosinophils negative. (6) Metastatic primary lung cancer Code(s): C34.90 - Malignant neoplasm of unspecified part of unspecified bronchus or lung Status: Chronic Plan: S/p chemo in November, s/p lobectomy. Recent PET scans negative. MRI spine shows possible mets. Repeat brain MRI with no acute change. Management per oncology team; discussing case with patients oncologist in [place] , Dr. Dillard. Regarding possible drop mets * Unsure of etiology at this time. Radiation oncology consulted * No therapy at this time due to low platelets. (7) Thrombosis of right saphenous vein Code(s): I82.811 - Embolism and thrombosis of superficial veins of right lower extremity Status: Acute Plan: Lower extremity superficial vein, generally benign and self-limited however a larger vein is involved in this case. Caution with propagation into the DVT system and PE possibility. Likely due to abnormal coagulation at this time. Elevation. Pain management. (8) Anemia Code(s): D64.9 - Anemia, unspecified Status: Acute Plan: No history of anemia per patient. Likely chronic anemia, patient at high risk for bleeding due to thrombocytopenia. Unsure of the exact cause, chemotherapy vs recent surgery vs chronic anemia. (9) Avascular necrosis of hip Code(s): M87.059 - Idiopathic aseptic necrosis of unspecified femur Status: Chronic Plan: MRI of sacrum revealed findings of avascular necrosis involving the right femoral head. No collapse. Patient reports chronic hip pain, nothing acute. Unsure etiology. Did receive IV steroids on 01/23. * Will hold further steroids at this time. * Continue to monitor. (10) Atrial fibrillation Code(s): I48.91 - Unspecified atrial fibrillation Status: Chronic Plan: History of Afib. Controlled rate. Was diagnosed after previous surgery. 06/13 YANA murmur on exam, TR and MR seen on Echo. Echo shows EF of 50-55%, segmental wall motion abnormalities with hypokinesis. No episodes of Afib during admission; telemety d/c. Continue metoprolol. (11) Nutrition, metabolism, and development symptoms Code(s): R63.8 - Other symptoms and signs concerning food and fluid intake Status: Acute Plan: Fluids: * Tolerating PO. Electrolytes: * Monitor and replete as necessary. Nutrition: * Regular diet. DVT prophylaxis: Holding all heparin products, argatroban gtt. Incentive spirometry. <Miladys Sifuentes - 02/02/18 11:42> - Assessment and Plan 62 year old male with history of lung cancer with mets to brain, hypertension, atrial fibrillation presented on admission with bilateral leg pain/weakness. Admitted for workup. 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 Currently on argatroban gtt, awaiting improvement of platelets. Post-op from axillofemoral bypass with coiling. Pain and blood flow improved. Awaiting improvement of platelets for transition to oral anticoagulant. <Miladys Sifuentes - 02/02/18 09:49> - Attending Attestation The exam, history, and the medical decision-making described in the above note were completed with the assistance of the resident physician. I reviewed and agree with the findings presented. I attest that I had a [id number] encounter with the patient on the same day -- discussed with patient his care and the plan. The patient has PCP, specialists and access to care outside of the hospital setting. He would really not like to pursue any additional workup at this time for his neurologic symptoms unless something were urgent, his clinical picture changed. He is aware there may be something going on more but he wants to go home. Recover from this as soon as his platelets allow and then continue to work with his physicians to determine what is going on with all of his symptoms. He overall is feeling good. So the plan from our perspective in joint decision making with the patient will be to be as minimally invasive as possible, monitor the platelets and once that is stable dc to home on eliquis. <Jess Toro R - 02/02/18 13:47> <Miladys Sifuentes - Last Filed: 02/02/18 11:42> (8) Anemia Qualifiers: Anemia type: bone marrow failure Bone marrow failure anemia type: pancytopenia, antineoplastic chemotherapy-induced Qualified Code(s): D61.810 - Antineoplastic chemotherapy induced pancytopenia; T45.1X5A - Adverse effect of antineoplastic and immunosuppressive drugs, initial encounter (9) Avascular necrosis of hip Qualifiers: Laterality: right Qualified Code(s): M87.051 - Idiopathic aseptic necrosis of right femur <Jess Toro - Last Filed: 02/02/18 13:47> (8) Anemia Qualifiers: Anemia type: bone marrow failure Bone marrow failure anemia type: pancytopenia, antineoplastic chemotherapy-induced Qualified Code(s): D61.810 - Antineoplastic chemotherapy induced pancytopenia; T45.1X5A - Adverse effect of antineoplastic and immunosuppressive drugs, initial encounter (9) Avascular necrosis of hip Qualifiers: Laterality: right Qualified Code(s): M87.051 - Idiopathic aseptic necrosis of right femur <Miladys Sifuentes - Last Filed: 02/02/18 11:42> (8) Anemia Qualifiers: Anemia type: bone marrow failure Bone marrow failure anemia type: pancytopenia, antineoplastic chemotherapy-induced Qualified Code(s): D61.810 - Antineoplastic chemotherapy induced pancytopenia; T45.1X5A - Adverse effect of antineoplastic and immunosuppressive drugs, initial encounter (9) Avascular necrosis of hip Qualifiers: Laterality: right Qualified Code(s): M87.051 - Idiopathic aseptic necrosis of right femur <Jess Toro - Last Filed: 02/02/18 13:47> (8) Anemia Qualifiers: Anemia type: bone marrow failure Bone marrow failure anemia type: pancytopenia, antineoplastic chemotherapy-induced Qualified Code(s): D61.810 - Antineoplastic chemotherapy induced pancytopenia; T45.1X5A - Adverse effect of antineoplastic and immunosuppressive drugs, initial encounter (9) Avascular necrosis of hip Qualifiers: Laterality: right Qualified Code(s): M87.051 - Idiopathic aseptic necrosis of right femur
--- NOTE | 2018-02-02 09:58 | P.PNNEU ---
Subjective Subjective Comments: not sleeping well maybe alittle confused? Active Medications: Active Medications Acetaminophen (Tylenol) 650 mg PO Q4H PRN PRN Reason: Temp > 100.4 Last Admin: 01/29/18 14:19 Dose: 650 mg Al Hydroxide/Mg Hydroxide (Milk Of Magnesia Liq) 30 ml PO Q12H PRN PRN Reason: Mild Constipation Last Admin: 01/23/18 20:34 Dose: 30 ml Bisacodyl (Dulcolax Supp) 10 mg RECTAL DAILY PRN PRN Reason: SEVERE CONSITIPATION Budesonide/Formoterol Fumarate (Symbicort 160/4.5 Mcg Inh) 2 puff INH BID [facility] Last Admin: 02/01/18 21:08 Dose: 2 puff Clonidine HCl (Catapres) 0.1 mg PO Q6H PRN PRN Reason: SEE LABEL COMMENTS Folic Acid (Folic Acid) 1 mg PO DAILY [facility] Last Admin: 02/01/18 08:46 Dose: 1 mg Argatroban 250 mg/ Sodium (Chloride) 250 mls @ 0 mls/hr IV.CONT TITRATE PRN; Protocol PRN Reason: Per Protocol Last Admin: 02/01/18 14:22 Dose: 2.12 mcg/kg/min, 8.78 mls/hr Lactulose (Lactulose Liq) 30 ml PO DAILY PRN PRN Reason: SEVERE CONSITIPATION Metoprolol Tartrate (Lopressor) 12.5 mg PO BID [facility] Last Admin: 02/01/18 21:07 Dose: 12.5 mg Miscellaneous (Pill Splitter) 1 each OTHER UNSCH PRN PRN Reason: SEE LABEL COMMENTS Morphine Sulfate (Morphine Inj) 1 mg IV.PUSH Q6HR PRN PRN Reason: PAIN 6-10;IF UNABLE TO TAKE PO Last Admin: 02/02/18 07:25 Dose: 1 mg Naloxone HCl (Narcan Inj) 0.4 mg IV.PUSH UNSCH PRN PRN Reason: SEE LABEL COMMENTS Oxycodone HCl (Roxicodone) 5 mg PO Q6H PRN PRN Reason: PAIN SCALE 1 TO 10 Last Admin: 02/02/18 03:27 Dose: 5 mg Sennosides (Senokot) 17.2 mg PO Q12H PRN PRN Reason: Moderate Constipation Last Admin: 01/21/18 22:30 Dose: 17.2 mg Sodium Chloride (Ns Flush) 2 ml IV.FLUSH PRN PRN PRN Reason: FLUSH AFTER USING IV ACCESS Last Admin: 01/20/18 20:43 Dose: 2 ml Sodium Chloride (Ns Flush) 2 ml IV.FLUSH BID SHAVONNE Last Admin: 02/01/18 21:09 Dose: 2 ml Sodium Chloride (Ns Flush) 2 ml IV.FLUSH PRN PRN PRN Reason: FLUSH AFTER USING IV ACCESS Temazepam (Restoril) 15 mg PO HS PRN PRN Reason: INSOMNIA Last Admin: 02/01/18 21:07 Dose: 15 mg Allergies/Adverse Reactions: Allergies Allergy/AdvReac Type Severity Reaction Status Date / Time No Known Allergies Allergy Unverified 01/17/18 11:06 Physical Exam Vital signs: Vital Signs 02/01/18 12:00 02/01/18 16:00 02/01/18 20:00 Temperature 97.0 F L 97.9 F 97.7 F Pulse Rate 76 78 78 Respiratory Rate 16 16 17 Blood Pressure 117/61 111/61 104/54 L Pulse Oximetry 97 96 99 02/02/18 00:00 02/02/18 08:00 Temperature 98.3 F 97.4 F L Pulse Rate 75 73 Respiratory Rate 16 16 Blood Pressure 101/57 L 117/64 Pulse Oximetry 96 97 Intake & Output 02/01/18 02/02/18 02/02/18 18:59 06:59 18:59 Intake Total 1550 / 1550 600 / 600 Output Total 900 / 900 Balance 650 / 650 600 / 600 Weight 70.9 kg Intake: IV 250 / 250 Novastan Inj 250 MG In NS Inj 250 / 250 247.5 ML @ Per Protocol IV.CONT TITRATE PRN Rx#:[id number] Oral 1300 / 1300 600 / 600 Output: Urine 900 / 900 Stool 0 / 0 Other: # Voids 5 Narrative: awake alert 5/5 t/o x left ta and foot eversion weak and some tingling top left foot 2018 lbp chronic - Urinary Catheter Management Indwelling Urethral Catheter Cath placed during this visit: yes, but has since been removed by the nurse Reason for continuing: Decision to DC catheter Insertion date: 01/25/18 Insertion time: 12:59 Removal date: 01/26/18 Removal time: 17:00 Objective Laboratory Results - last 24 hr 02/02/18 02/02/18 02/02/18 05:43 05:43 05:43 WBC 8.2 RBC 2.62 L Hgb 7.8 L Hct 23.4 L MCV 89.2 MCH 29.6 MCHC 33.2 RDW 17.6 H Plt Count 80 L MPV 7.8 APTT 64.8 H Sodium 137 Potassium 4.3 Chloride 102 Carbon Dioxide 28.3 Anion Gap 7 BUN 18 Creatinine 1.63 H Estimated GFR 43 L Random Glucose 93 Calcium 8.5 Microbiology 01/27/18 12:05 Aerobic Blood Culture - Final Blood - Peripheral No growth in 5 days Anaerobic Blood Culture - Final No growth in 5 days 01/27/18 12:00 Aerobic Blood Culture - Final Blood - Peripheral No growth in 5 days Anaerobic Blood Culture - Final No growth in 5 days Review/Management - Diagnosis (1) Metastatic primary lung cancer Code(s): C34.90 - Malignant neoplasm of unspecified part of unspecified bronchus or lung Status: Chronic Current Visit: Yes (2) Lower extremity weakness Code(s): R29.898 - Other symptoms and signs involving the musculoskeletal system Status: Acute Current Visit: Yes (3) Atrial fibrillation Code(s): I48.91 - Unspecified atrial fibrillation Status: Acute Current Visit: Yes - Review/Management Plan: D/W DR LING TRIAL OF DDECADRON 4MG QID MRI RPT NOT YET DONE PT EVAL cta showed some blockages but does have flow in ble arterial dr hannah not convinced the thoracic abn is met could be vascular? i austyn neurorad check cpk labs hit rx per dr pablo hernandez recently fu echo some infarct in kidney ? 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 will have to repeat mri t spine concerned with new weak left ankle 01/22/18 mri t spine no change looks more peripheral and not in cord neurorads did not think this was a cord avm vascular feels sx not from aortic dz with the left foot drop need emg and worry about carcinomatous meningits needs LP when able i will dw heme about plts try lyrica and neurontin not helping 01/23/18 no major change emg pend try decadron check cpk similar sx to a diabetic amyotrophy picture check mri of the ls plexus and pelvis 01/24/18 pain much better plt 49k should be able to do LP soon maybe a llittle stronger left ta ? aseptic necrosis hip so will hold further steroids and please have heme order LP jermaine when cleared plexus mri neg 01/25/[address] Yesenia hopper and dr shah no need to do LP now as cannot rx with chemo so surgery for what was felt yest to be ischemia sudden change watch renal fx emg pend 01/25/18/ doing well post op if pain does not return then yessy vascular creat 1.4 plt down a little legs warm looks well will fu monday if stillhere. emg possibly today o/w i will have to do o/p 01/27/2018 Arm strength improved. Leg strength improved after revascularization procedure although chronic left foot weakness Discussed with patient and spouse follow exam 01/28/2018 Strength improved in the upper extremities able raise above his head good radial pulse good salad chef strength. Lower extremity strength also improving. Chronic left dorsiflexion weakness therapy rehab outpatient EMG PT Discussed with patient and spouse 01/29/18 he is alittle ataixic rue but i reviewed mri and no cva mra x2 neg x melisa has some dz we can look at this infuture dep on how plts and ca goes the c dony mr neg unclear why go this ataxia ow doing well and the left ta wekness improving and the pain lle gone now post op so must have been vascular 02/02/18 still left ta 4- and dec rom and looks like a left peroneal palsy will try and get emg note r ataxia unexplained plt 80 k (2) Lower extremity weakness Qualifiers: Laterality: bilateral Qualified Code(s): R29.898 - Other symptoms and signs involving the musculoskeletal system
[2018-02-02] MEDS: Acetaminophen 325 MG Tablet PO SCH ×3 (12:00→20:27)
--- NOTE | 2018-02-02 12:19 | P.PNVS ---
Subjective Subjective/Hospital Course: Patient seen and full consult dictated We will follow Thanks J 01/24/[address] Veras, interventional radiology and we jointly examined the patient and spoke to the and the patient. For details refer to my original consult from last week. On physical exam patient has more prominent changes as far as the decrease in blood flow in both feet. He still has dopplerable femoral and popliteal pulses as well as weak dorsalis pedis posterior tibial on the left and only posterior tibial on the right. In comparison to last week and this Monday, indeed toes are more dusky appearing with some cyanotic hue especially the right foot. Capillary refill is quite decreased at this time. There is no question that patient is throwing embolic material and showering microthrombi and micro emboli distally. Renal function is somewhat improved which is helpful and platelet count is slowly rising. This is a very complex situation and remedies are limited Patient is not a candidate for aortobifemoral bypass for this is a major surgery which patient would not sustain very well. The other option is placing iliac covered stents to push the clot aside. Unfortunately this would allow for aortic thrombotic material to flush downward unimpeded and with essentially worsened the situation. Therefore after discussing this with patient and family and then between Dr. Veras, Dr. Calzada and myself we agreed on following hybrid approach Patient will have axillobifemoral bypass in order to improve the blood flow to the legs and bypass the occluded area of aorta and iliac arteries. At the same , time Dr. Veras will coil the remaining proximal iliac flow in order to prevent clots from flushing down further. Between these 2 patient has the best chance to maintain the flow to the legs and minimize the chance of further distal embolization. Unfortunately patient does have metastatic lung cancer and his longevity is predicated upon this but also possible complications from the above-noted procedures for he will continue to have a low level consumption coagulopathy and may form clots in his axillobifemoral graft or in the distal quechan vessels. He will need to remain on full anticoagulation for the rest of his life probably go home on either factor VIIa inhibitor or thrombin inhibitor. I will also offer to the patient the option of going back to [place] where he already had lung surgery and brain surgery for they have established trust with that group of physicians and surgeons. Otherwise, patient is on schedule for tomorrow for axillobifemoral bypass and coiling of the iliacs. Discussed with hematology as well. I have extensively discussed the risks and benefits of the surgery with patient and his as well as potential risks including loss of both extremities and . 01/26/2018 Patient is status post axillobifemoral bypass and endovascular coiling of the common iliac arteries Incisions are clean and dry Patient is awake alert and oriented Patient has brisk flow in the axillofemoral graft and strong dopplerable popliteal and posterior tibial pulses Weak dorsalis pedis pulses Feet are nice and warm well perfused and capillary refill is normal Patient currently on argatroban and should probably go home on some oral anticoagulant probably Eliquis. Plan Transfer to floor Hep-Lock IV Out of bed Regular diet 01/27/2018 Patient doing well incisions are clean and dry Excellent flow in the axillofemoral portion of the graft into the both groins Both feet are nice and warm and well-perfused Patient still has some weakness in the right arm but this is improving since the surgery Patient ambulating in the corners without difficulty Greatly appreciate expertise by Dr. Calzada Fully agree with care and Dr. Hernandez hematology and Dr. Benjamin neurology valuable inputs and expertise are greatly appreciated Nothing to add from vascular point 01/28/2018 Patient doing very well Incisions clean and dry Excellent Doppler signal and the axillobifemoral grafts and distally Feet are warm and well perfused with normal capillary refill Patient may shower get incisions wet 01/29/2018 Nothing to add to care Incisions clean and dry and patient ambulating with ease Would send home on some sort of anticoagulation preferably factor VII inhibitor Follow-up in my office in about 3-4 weeks 01/30/2018 Patient doing well at this time Incision is clean and dry Platelet count slowly coming up Patient can shower get incisions wet Nothing to add to care at this time and patient will be discharged on factor VIIa inhibitor once the platelet count is adequate per hematology. 02/02/2018 Patient doing very well Both feet are warm and patient is ambulating with ease Incisions are clean and dry Platelets are slowly coming up Nothing to add to care from surgical point Objective Vital Signs / I&O: Vital Signs 02/01/18 16:00 02/01/18 20:00 02/02/18 00:00 Temperature 97.9 F 97.7 F 98.3 F Pulse Rate 78 78 75 Respiratory Rate 16 17 16 Blood Pressure 111/61 104/54 L 101/57 L Pulse Oximetry 96 99 96 02/02/18 08:00 Temperature 97.4 F L Pulse Rate 73 Respiratory Rate 16 Blood Pressure 117/64 Pulse Oximetry 97 Intake & Output 02/01/18 02/02/18 02/02/18 18:59 06:59 18:59 Intake Total 1550 / 1550 600 / 600 Output Total 900 / 900 Balance 650 / 650 600 / 600 Weight 70.9 kg Intake: IV 250 / 250 Novastan Inj 250 MG In NS Inj 250 / 250 247.5 ML @ Per Protocol IV.CONT TITRATE PRN Rx#:[id number] Oral 1300 / 1300 600 / 600 Output: Urine 900 / 900 Stool 0 / 0 Other: # Voids 5 Laboratory Results - last 24 hr 02/02/18 02/02/18 02/02/18 05:43 05:43 05:43 WBC 8.2 RBC 2.62 L Hgb 7.8 L Hct 23.4 L MCV 89.2 MCH 29.6 MCHC 33.2 RDW 17.6 H Plt Count 80 L MPV 7.8 APTT 64.8 H Sodium 137 Potassium 4.3 Chloride 102 Carbon Dioxide 28.3 Anion Gap 7 BUN 18 Creatinine 1.63 H Estimated GFR 43 L Random Glucose 93 Calcium 8.5 Microbiology 01/27/18 12:05 Aerobic Blood Culture - Final Blood - Peripheral No growth in 5 days Anaerobic Blood Culture - Final No growth in 5 days 01/27/18 12:00 Aerobic Blood Culture - Final Blood - Peripheral No growth in 5 days Anaerobic Blood Culture - Final No growth in 5 days
--- NOTE | 2018-02-02 17:58 | P.PNONC ---
Subjective Interval history: c/o pain due to hard mattress. Able to walk Objective Vital Signs/Intake & Output: Vital Signs 02/01/18 20:00 02/02/18 00:00 02/02/18 08:00 Temperature 97.7 F 98.3 F 97.4 F L Pulse Rate 78 75 73 Respiratory Rate 17 16 16 Blood Pressure 104/54 L 101/57 L 117/64 Pulse Oximetry 99 96 97 02/02/18 12:00 02/02/18 16:00 Temperature 97.6 F 98.1 F Pulse Rate 94 H 77 Respiratory Rate 17 16 Blood Pressure 111/67 119/61 Pulse Oximetry 99 98 Intake & Output 02/01/18 02/02/18 02/02/18 18:59 06:59 18:59 Intake Total 1550 / 1550 600 / 600 1200 / 1200 Output Total 900 / 900 4 / 4 Balance 650 / 650 600 / 600 1196 / 1196 Weight 70.9 kg Intake: IV 250 / 250 Novastan Inj 250 MG In NS Inj 250 / 250 247.5 ML @ Per Protocol IV.CONT TITRATE PRN Rx#:[id number] Oral 1300 / 1300 600 / 600 1200 / 1200 Output: Urine 900 / 900 4 / 4 Stool 0 / 0 Other: # Voids 5 # Bowel Movements 1 Result Diagrams: 02/02/18 05:43 02/02/18 05:43 Laboratory Results: Laboratory Results - last 24 hr 02/02/18 02/02/18 02/02/18 05:43 05:43 05:43 WBC 8.2 RBC 2.62 L Hgb 7.8 L Hct 23.4 L MCV 89.2 MCH 29.6 MCHC 33.2 RDW 17.6 H Plt Count 80 L MPV 7.8 APTT 64.8 H Sodium 137 Potassium 4.3 Chloride 102 Carbon Dioxide 28.3 Anion Gap 7 BUN 18 Creatinine 1.63 H Estimated GFR 43 L Random Glucose 93 Calcium 8.5 Culture Results: Microbiology 01/27/18 12:05 Aerobic Blood Culture - Final Blood - Peripheral No growth in 5 days Anaerobic Blood Culture - Final No growth in 5 days 01/27/18 12:00 Aerobic Blood Culture - Final Blood - Peripheral No growth in 5 days Anaerobic Blood Culture - Final No growth in 5 days Medications: Active Medications Generic Name Dose Route Start Last Admin Trade Name Freq PRN Reason Stop Dose Admin Acetaminophen 650 mg 02/02/18 12:00 02/02/18 16:00 Tylenol PO Not Given Q4H SHAVONNE Al Hydroxide/Mg Hydroxide 30 ml 01/17/18 14:19 01/23/18 20:34 Milk Of Ramos Liq PO 30 ml Q12H PRN Administration Mild Constipation Budesonide/Formoterol Fumarate 2 puff 01/17/18 14:00 02/02/18 08:53 Symbicort 160/4.5 Mcg Inh INH 2 puff BID SHAVONNE Administration Folic Acid 1 mg 01/17/18 13:45 02/02/18 08:52 Folic Acid PO 1 mg DAILY SHAVONNE Administration Argatroban 250 mg/ Sodium 250 mls @ 0 mls/hr 01/18/18 15:00 02/01/18 14:22 Chloride IV.CONT 2.12 mcg/kg/min TITRATE PRN 8.78 mls/hr Per Protocol Administration Protocol Per Protocol Metoprolol Tartrate 12.5 mg 01/28/18 09:00 02/02/18 08:52 Lopressor PO 12.5 mg BID SHAVONNE Administration Morphine Sulfate 1 mg 01/26/18 10:08 02/02/18 07:25 Morphine Inj IV.PUSH 1 mg Q6HR PRN Administration PAIN 6-10;IF UNABLE TO TAKE PO Oxycodone HCl 5 mg 02/02/18 11:40 02/02/18 17:44 Roxicodone PO 5 mg Q4H PRN Administration PAIN SCALE 1 TO 10 Sennosides 17.2 mg 01/17/18 14:08 01/21/18 22:30 Senokot PO 17.2 mg Q12H PRN Administration Moderate Constipation Sodium Chloride 2 ml 01/17/18 11:17 01/20/18 20:43 Ns Flush IV.FLUSH 2 ml PRN PRN Administration FLUSH AFTER USING IV ACCESS Sodium Chloride 2 ml 01/31/18 09:00 02/02/18 08:53 Ns Flush IV.FLUSH 2 ml BID SHAVONNE Administration Temazepam 15 mg 01/17/18 21:00 02/01/18 21:07 Restoril PO 15 mg HS PRN Administration INSOMNIA Objective Remarks: GENERAL: Well-nourished, well-developed patient. SKIN: Warm and dry. HEAD: Normocephalic. EYES: No scleral icterus. No injection or drainage. NECK: Supple, trachea midline. No JVD or lymphadenopathy. LYMPHATIC: No adenopathy. CARDIOVASCULAR: Regular rate and rhythm without murmurs. RESPIRATORY: Breath sounds equal bilaterally. No accessory muscle use. GASTROINTESTINAL: Abdomen soft, non-tender, nondistended. EXTREMITIES: No cyanosis, or edema. NEUROLOGICAL: No obvious focal deficit. Awake, alert, and oriented x3. 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 Bernstein is a pleasant 62-year-old gentleman with a history of non-small cell lung cancer with brain metastasis, status post craniotomy with resection followed by stereotactic radiosurgery with gamma knife, 3-4 cycles of preop Immunochemotherapy with 2 doses of Platinol and Alimta he also underwent thoracotomy and resection of the left upper lobe and wedge resection of the left lower lobe on 01/01/2018. Patient had minimal residual disease of 0.6 cm and also the lymph nodes were negative. Margins were also negative. During this admission the patient was found to have severe thrombocytopenia. Patient did have recent exposure to subcutaneous heparin after his recent surgery. Plan: 1. Continue Argatroban drip, platelets increased to 78k today. Once platelets are greater than 100,000 we can bridge argatroban to oral anticoagulant. 2. Continue to monitor for bleeding. 3. Continue supportive care. 02/02/18 Plat are 80 K today. Ask Incharge nurse to get egg crate mattress continue argatroban drip till plat are >100 then bridge to Eliquis. d/w medical Team and .
[2018-02-02] MEDS: Argatroban Inj 250 MG in Sodium Chlor 0.9% Inj 247.5 ML IV.CONT PRN (18:40)
[2018-02-02] MEDS: Temazepam 15 MG Capsule PO PRN (20:26)
[2018-02-03] MEDS: Acetaminophen 325 MG Tablet PO SCH ×6 (01:57→20:37)
[2018-02-03 06:04] LABS: Hemoglobin 7.9 gm/dL (13.0-17.0); Mean Corpuscular HGB Conc 33.1 % (32.0-36.0); Mean Corpuscular Hemoglobin 29.9 pg (27.0-34.0); Mean Corpuscular Volume 90.3 fL (80.0-100.0); Mean Platelet Volume 8.6 fL (7.0-11.0); Platelet Count 93 th/mm3 (150-450); Red Blood Count 2.65 mil/mm3 (4.50-5.90); Red Cell Distribution Width 17.9 % (11.6-17.2); White Blood Count 7.5 th/mm3 (4.0-11.0)
[2018-02-03 06:28] LABS: Alanine Aminotransferase 25 U/L (12-78); Albumin 2.3 g/dL (3.4-5.0); Anion Gap 9 meq/L (5-15); Aspartate Aminotransferase 18 U/L (15-37); Blood Urea Nitrogen 17 mg/dL (7-18); Calcium 8.4 mg/dL (8.5-10.1); Carbon Dioxide 27.3 meq/L (21.0-32.0); Chloride 105 meq/L (98-107); Glomerular Filtration Rate 48 mL/min (>89); Glucose,Random 93 mg/dL (74-106); Potassium 4.1 meq/L (3.5-5.1); Sodium 141 meq/L (136-145)
[2018-02-03 06:31] LABS: Alkaline Phosphatase 66 U/L (45-117); Total Protein 6.6 g/dL (6.4-8.2)
[2018-02-03] MEDS: Folic Acid 1 MG Tablet PO SCH (09:30)
[2018-02-03] MEDS: Metoprolol Tartrate 25 MG Tablet PO SCH ×2 (09:31→20:37)
[2018-02-03] MEDS: Budesonide-Formoterol 160/4.5 MCG 6 GM Inhaler INH SCH ×2 (09:33→20:39)
[2018-02-03] MEDS: Sodium Chloride 0.9% 2 ML Flush BID IV.FLUSH SCH ×2 (11:03→20:39)
--- NOTE | 2018-02-03 12:08 | P.PNONC ---
Subjective Interval history: Ambulating in room, tolerating well. Continues on argatroban drip. Denies any bleeding. Objective Vital Signs/Intake & Output: Vital Signs 02/02/18 16:00 02/02/18 20:00 02/03/18 08:00 Temperature 98.1 F 98.7 F 97.9 F Pulse Rate 77 77 74 Respiratory Rate 16 17 16 Blood Pressure 119/61 109/57 L 124/74 Pulse Oximetry 98 98 98 Intake & Output 02/02/18 02/03/18 02/03/18 18:59 06:59 18:59 Intake Total 1450 / 1450 800 / 800 Output Total 4 / 4 Balance 1446 / 1446 800 / 800 Weight 70.9 kg Intake: IV 250 / 250 Novastan Inj 250 MG In NS Inj 250 / 250 247.5 ML @ Per Protocol IV.CONT TITRATE PRN Rx#:[id number] Oral 1200 / 1200 800 / 800 Output: Urine 4 / 4 Other: # Voids 2 # Bowel Movements 1 Result Diagrams: 02/03/18 05:36 02/03/18 05:36 Laboratory Results: Laboratory Results - last 24 hr 02/03/18 02/03/18 02/03/18 05:36 05:36 05:36 WBC 7.5 RBC 2.65 L Hgb 7.9 L Hct 24.0 L MCV 90.3 MCH 29.9 MCHC 33.1 RDW 17.9 H Plt Count 93 L MPV 8.6 APTT 63.6 H Sodium 141 Potassium 4.1 Chloride 105 Carbon Dioxide 27.3 Anion Gap 9 BUN 17 Creatinine 1.48 H Estimated GFR 48 L Random Glucose 93 Calcium 8.4 L Total Bilirubin 0.4 AST 18 ALT 25 Alkaline Phosphatase 66 Total Protein 6.6 D Albumin 2.3 L Culture Results: Microbiology 01/27/18 12:05 Aerobic Blood Culture - Final Blood - Peripheral No growth in 5 days Anaerobic Blood Culture - Final No growth in 5 days 01/27/18 12:00 Aerobic Blood Culture - Final Blood - Peripheral No growth in 5 days Anaerobic Blood Culture - Final No growth in 5 days Medications: Active Medications Generic Name Dose Route Start Last Admin Trade Name Freq PRN Reason Stop Dose Admin Acetaminophen 650 mg 02/02/18 12:00 02/03/18 09:30 Tylenol PO 650 mg Q4H SHAVONNE Administration Al Hydroxide/Mg Hydroxide 30 ml 01/17/18 14:19 01/23/18 20:34 Milk Of Magnesia Liq PO 30 ml Q12H PRN Administration Mild Constipation Budesonide/Formoterol Fumarate 2 puff 01/17/18 14:00 02/03/18 09:33 Symbicort 160/4.5 Mcg Inh INH 2 puff BID SHAVONNE Administration Folic Acid 1 mg 01/17/18 13:45 02/03/18 09:30 Folic Acid PO 1 mg DAILY SHAVONNE Administration Argatroban 250 mg/ Sodium 250 mls @ 0 mls/hr 01/18/18 15:00 02/02/18 18:40 Chloride IV.CONT 2.12 mcg/kg/min TITRATE PRN 8.78 mls/hr Per Protocol Administration Protocol Per Protocol Metoprolol Tartrate 12.5 mg 01/28/18 09:00 02/03/18 09:31 Lopressor PO 12.5 mg BID SHAVONNE Administration Morphine Sulfate 1 mg 01/26/18 10:08 02/02/18 07:25 Morphine Inj IV.PUSH 1 mg Q6HR PRN Administration PAIN 6-10;IF UNABLE TO TAKE PO Oxycodone HCl 5 mg 02/02/18 11:40 02/03/18 11:03 Roxicodone PO 5 mg Q4H PRN Administration PAIN SCALE 1 TO 10 Sennosides 17.2 mg 01/17/18 14:08 01/21/18 22:30 Senokot PO 17.2 mg Q12H PRN Administration Moderate Constipation Sodium Chloride 2 ml 01/17/18 11:17 01/20/18 20:43 Ns Flush IV.FLUSH 2 ml PRN PRN Administration FLUSH AFTER USING IV ACCESS Sodium Chloride 2 ml 01/31/18 09:00 02/03/18 11:03 Ns Flush IV.FLUSH Not Given BID [facility] Temazepam 15 mg 01/17/18 21:00 02/02/18 20:26 Restoril PO 15 mg HS PRN Administration INSOMNIA Objective Remarks: GENERAL: Middle-aged male patient, ambulating in room, in no acute distress. SKIN: Warm and dry. HEAD: Normocephalic. EYES: No scleral icterus. No injection or drainage. NECK: Supple, trachea midline. CARDIOVASCULAR: +S1/S2 without murmurs. RESPIRATORY: Anterior breath sounds clear, non-labored. GASTROINTESTINAL: Abdomen soft, non-tender, nondistended. EXTREMITIES: No cyanosis or edema. MUSCULOSKELETAL: Adequate muscle tone. NEUROLOGICAL: No obvious focal deficit. Awake, alert, and oriented x3. 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 Bernstein is a pleasant 62-year-old gentleman with a history of non-small cell lung cancer with brain metastasis, status post craniotomy with resection followed by stereotactic radiosurgery with gamma knife, 3-4 cycles of preop Immunochemotherapy with 2 doses of Platinol and Alimta he also underwent thoracotomy and resection of the left upper lobe and wedge resection of the left lower lobe on 01/01/2018. Patient had minimal residual disease of 0.6 cm and also the lymph nodes were negative. Margins were also negative. During this admission the patient was found to have severe thrombocytopenia. Patient did have recent exposure to subcutaneous heparin after his recent surgery. Plan: 1. Continue Argatroban drip, platelets increased to 93k today. Once platelets are greater than 100,000 we can bridge argatroban to Eliquis. 2. Continue to monitor for bleeding. 3. Continue supportive care. - Attending Statement The exam, history, and the medical decision-making described in the above note were completed with the assistance of the mid-level provider. I reviewed and agree with the findings presented. I attest that I had a [id number] encounter with the patient on the same day, and personally performed and documented my assessment and findings in the medical record. He is doing well. Exam of the lower extremities shows no evidence of thrombosis. Await the platelet count being 100,000 or greater before transitioning to oral anticoagulants. Above discussed with patient. In the meantime continue the argatroban. PTT is therapeutic.
--- NOTE | 2018-02-03 13:03 | P.PN ---
Subjective Interval history: Pt seen and examined this morning. He is feeling good, and expresses no concerns today. He is ready to go home as soon as possible. He expresses feeling a lot better since the egg crate was added to his bed yesterday. He denies any N/V, headaches, chest pain, shortness of breath, fevers. Physical Exam Vital signs: Vital Signs 02/02/18 16:00 02/02/18 20:00 02/03/18 08:00 Temperature 98.1 F 98.7 F 97.9 F Pulse Rate 77 77 74 Respiratory Rate 16 17 16 Blood Pressure 119/61 109/57 L 124/74 Pulse Oximetry 98 98 98 02/03/18 12:00 Temperature 98.1 F Pulse Rate 69 Respiratory Rate 18 Blood Pressure 114/55 L Pulse Oximetry 98 Intake & Output 02/02/18 02/03/18 02/03/18 18:59 06:59 18:59 Intake Total 1450 / 1450 800 / 800 Output Total 4 / 4 Balance 1446 / 1446 800 / 800 Weight 70.9 kg Intake: IV 250 / 250 Novastan Inj 250 MG In NS Inj 250 / 250 247.5 ML @ Per Protocol IV.CONT TITRATE PRN Rx#:[id number] Oral 1200 / 1200 800 / 800 Output: Urine 4 / 4 Other: # Voids 2 # Bowel Movements 1 Narrative: GENERAL: Laying in bed, NAD. CARDIOVASCULAR: Regular rate and rhythm. 2/6 systolic ejection murmur present. RESPIRATORY: No accessory muscle use. Clear to auscultation. Breath sounds equal bilaterally. No wheezes, crackles, rales. GASTROINTESTINAL: Normal bowel sounds. Abdomen soft, non-tender, nondistended. MUSCULOSKELETAL: Extremities warm to touch. No edema or cyanosis. NEUROLOGICAL: Awake and alert. Normal speech. CN II-XII grossly intact. PSYCHIATRIC: Appropriate mood and affect; insight and judgment normal. - Urinary Catheter Management Indwelling Urethral Catheter Cath placed during this visit: yes, but has since been removed by the nurse Reason for continuing: Decision to DC catheter Insertion date: 01/25/18 Insertion time: 12:59 Removal date: 01/26/18 Removal time: 17:00 Results - Labs CBC & Chem 7: 02/04/18 05:31 02/04/18 05:31 Laboratory Results - last 24 hr 0902/03/18 02/03/18 05:36 05:36 05:36 WBC 7.5 RBC 2.65 L Hgb 7.9 L Hct 24.0 L MCV 90.3 MCH 29.9 MCHC 33.1 RDW 17.9 H Plt Count 93 L MPV 8.6 APTT 63.6 H Sodium 141 Potassium 4.1 Chloride 105 Carbon Dioxide 27.3 Anion Gap 9 BUN 17 Creatinine 1.48 H Estimated GFR 48 L Random Glucose 93 Calcium 8.4 L Total Bilirubin 0.4 AST 18 ALT 25 Alkaline Phosphatase 66 Total Protein 6.6 D Albumin 2.3 L - Procedures none Assessment and Plan - Assessment (1) Pain in both lower legs Code(s): M79.661 - Pain in right lower leg; M79.662 - Pain in left lower leg Status: Resolved (2) Heparin induced thrombocytopenia Code(s): D75.82 - Heparin induced thrombocytopenia (HIT) Status: Acute (3) Dysmetria Code(s): R27.8 - Other lack of coordination Status: Acute (4) Hypertension Code(s): I10 - Essential (primary) hypertension Status: Chronic (5) EVON (acute kidney injury) Code(s): N17.9 - Acute kidney failure, unspecified Status: Acute (6) Metastatic primary lung cancer Code(s): C34.90 - Malignant neoplasm of unspecified part of unspecified bronchus or lung Status: Chronic (7) Thrombosis of right saphenous vein Code(s): I82.811 - Embolism and thrombosis of superficial veins of right lower extremity Status: Acute (8) Anemia Code(s): D64.9 - Anemia, unspecified Status: Acute (9) Avascular necrosis of hip Code(s): M87.059 - Idiopathic aseptic necrosis of unspecified femur Status: Chronic (10) Atrial fibrillation Code(s): I48.91 - Unspecified atrial fibrillation Status: Chronic (11) Nutrition, metabolism, and development symptoms Code(s): R63.8 - Other symptoms and signs concerning food and fluid intake Status: Acute - Plan 62 year old male with history of lung cancer with mets to brain, hypertension, atrial fibrillation presented on admission with bilateral leg pain/weakness. Admitted for workup and shown to have thrombocytopenia on admission, with positive for HIT antibodies. Currently on argatroban gtt, awaiting improvement of platelets. Post-op from axillofemoral bypass with coiling. Pain and blood flow improved. Awaiting improvement of platelets for transition to oral anticoagulant. Although there are many specialist involved in his hospital care , pt wishes to go home as soon as his platelet count improves and continue his care as an outpatient. Plan: - Continue Argatroban drip, will transition to oral Eliquis once platelet count is 100. Today is 93. - Platelet count in AM - Continue chronic medical conditions plan. Pt is stable - Continue with regular diet, and PO fluid intake. Pt seen and discussed with Dr. Toro - Attending Attestation The exam, history, and the medical decision-making described in the above note were completed with the assistance of the resident physician. I reviewed and agree with the findings presented. I attest that I had a [id number] encounter with the patient on the same day, and personally performed and documented my assessment and findings in the medical record. (8) Anemia Qualifiers: Anemia type: bone marrow failure Bone marrow failure anemia type: pancytopenia, antineoplastic chemotherapy-induced Qualified Code(s): D61.810 - Antineoplastic chemotherapy induced pancytopenia; T45.1X5A - Adverse effect of antineoplastic and immunosuppressive drugs, initial encounter (9) Avascular necrosis of hip Qualifiers: Laterality: right Qualified Code(s): M87.051 - Idiopathic aseptic necrosis of right femur
[2018-02-03] MEDS: Temazepam 15 MG Capsule PO PRN (20:37)
[2018-02-03] MEDS: Argatroban Inj 250 MG in Sodium Chlor 0.9% Inj 247.5 ML IV.CONT PRN (23:46)
[2018-02-04] MEDS: Acetaminophen 325 MG Tablet PO SCH ×6 (01:48→21:15)
[2018-02-04 06:06] LABS: Baso # (Auto) 0.1 th/mm3 (0.0-0.2); Baso % (Auto) 1.9 % (0.0-2.0); Eos # (Auto) 0.5 th/mm3 (0.0-0.4); Eos % (Auto) 7.8 % (0.0-4.0); Hematocrit 22.7 % (39.0-51.0); Hemoglobin 7.5 gm/dL (13.0-17.0); Lymph # (Auto) 1.6 th/mm3 (1.0-4.8); Lymph % (Auto) 23.4 % (9.0-44.0); Mean Corpuscular HGB Conc 33.3 % (32.0-36.0); Mean Corpuscular Hemoglobin 29.6 pg (27.0-34.0); Mean Platelet Volume 8.2 fL (7.0-11.0); Mono # (Auto) 0.7 th/mm3 (0.0-0.9); Mono % (Auto) 10.2 % (0.0-8.0); Neut % (Auto) 56.7 % (16.0-70.0); Platelet Count 97 th/mm3 (150-450); Red Blood Count 2.55 mil/mm3 (4.50-5.90); Red Cell Distribution Width 17.8 % (11.6-17.2)
[2018-02-04 06:16] LABS: Activated Partial Thrombo Time 62.9 sec (24.3-30.1); INR 3.4 Ratio; Prothrombin Time 34.4 sec (9.8-11.6)
[2018-02-04 06:25] LABS: Albumin 2.3 g/dL (3.4-5.0); Anion Gap 7 meq/L (5-15); Aspartate Aminotransferase 16 U/L (15-37); Blood Urea Nitrogen 15 mg/dL (7-18); Calcium 8.1 mg/dL (8.5-10.1); Carbon Dioxide 28.1 meq/L (21.0-32.0); Chloride 107 meq/L (98-107); Glomerular Filtration Rate 42 mL/min (>89); Glucose,Random 96 mg/dL (74-106); Potassium 4.2 meq/L (3.5-5.1); Sodium 142 meq/L (136-145)
[2018-02-04 06:28] LABS: Alanine Aminotransferase 21 U/L (12-78); Alkaline Phosphatase 69 U/L (45-117); Total Protein 6.5 g/dL (6.4-8.2)
[2018-02-04 07:57] LABS: Eosinophils 6 % (0-4); Lymphocytes 23 % (9-44); Monocytes 4 % (0-8); Myelocytes 4 % (0-0); Platelet Morphology Normal (Normal)
[2018-02-04] MEDS: Metoprolol Tartrate 25 MG Tablet PO SCH ×2 (09:01→21:14)
[2018-02-04] MEDS: Folic Acid 1 MG Tablet PO SCH (09:03)
[2018-02-04] MEDS: Budesonide-Formoterol 160/4.5 MCG 6 GM Inhaler INH SCH (09:03)
[2018-02-04] MEDS: Sodium Chloride 0.9% 2 ML Flush BID IV.FLUSH SCH ×2 (09:08→21:17)
[2018-02-04] MEDS ORDERED: diazePAM 5 MG Tablet PO ONE (09:16)
--- NOTE | 2018-02-04 09:17 | P.PNONC ---
Subjective Interval history: Patient lying in bed, and RN at bedside. Pt extremely anxious to go home. His states "we know the platelets are 97, 000, but I don't know how much longer I can keep him here, he is ready to sign out". She requests something to help calm his nerves. I had a long discussion with the patient. He is agreeable to stay overnight if he can have the argatroban discontinued and transition to oral anticoagulant today. I will discuss this with my attending management rep. Objective Vital Signs/Intake & Output: Vital Signs 02/03/18 11:33 02/03/18 12:00 02/03/18 16:00 Temperature 98.1 F 97.5 F L Pulse Rate 69 72 Respiratory Rate 18 18 18 Blood Pressure 114/55 L 102/62 Pulse Oximetry 98 99 02/03/18 18:16 02/03/18 18:17 02/03/18 20:00 Temperature 97.7 F Pulse Rate 80 Respiratory Rate 18 18 20 Blood Pressure 141/66 H Pulse Oximetry 99 Intake & Output 02/03/18 02/04/18 02/04/18 18:59 06:59 18:59 Intake Total 1200 / 1200 1210 / 1210 Output Total 3 / 3 Balance 1197 / 1197 1210 / 1210 Weight 68.8 kg Intake: IV 250 / 250 Novastan Inj 250 MG In NS Inj 250 / 250 247.5 ML @ Per Protocol IV.CONT TITRATE PRN Rx#:[id number] Oral 1200 / 1200 960 / 960 Output: Urine 3 / 3 Other: # Voids 2 Result Diagrams: 02/04/18 05:31 02/04/18 05:31 Laboratory Results: Laboratory Results - last 24 hr 02/04/18 02/04/18 02/04/18 05:31 05:31 05:31 WBC 7.0 RBC 2.55 L Hgb 7.5 L Hct 22.7 L MCV 89.0 MCH 29.6 MCHC 33.3 RDW 17.8 H Plt Count 97 L MPV 8.2 Prelim Diff (Auto) Slide review pending Neut % (Auto) 56.7 Lymph % (Auto) 23.4 [place] % (Auto) 10.2 H Eos % (Auto) 7.8 H Baso % (Auto) 1.9 Neut # (Auto) 4.0 Lymph # (Auto) 1.6 [place] # (Auto) 0.7 Eos # (Auto) 0.5 H Baso # (Auto) 0.1 WBC Differential Manual diff final Seg Neuts % (Manual) 62 Lymphocytes % (Manual) 23 Monocytes % (Manual) 4 Eosinophils % (Manual) 6 H Basophils % (Manual) 1 Myelocytes % (Man) 4 H Abs Neuts (Manual) 4.6 Differential Comment . Platelet Estimate Low L Platelet Morphology Normal PT 34.4 H INR 3.4 APTT 62.9 H Sodium 142 Potassium 4.2 Chloride 107 Carbon Dioxide 28.1 Anion Gap 7 BUN 15 Creatinine 1.64 H Estimated GFR 42 L Random Glucose 96 Calcium 8.1 L Total Bilirubin 0.3 AST 16 ALT 21 Alkaline Phosphatase 69 Total Protein 6.5 Albumin 2.3 L Culture Results: Microbiology 01/27/18 12:05 Aerobic Blood Culture - Final Blood - Peripheral No growth in 5 days Anaerobic Blood Culture - Final No growth in 5 days 01/27/18 12:00 Aerobic Blood Culture - Final Blood - Peripheral No growth in 5 days Anaerobic Blood Culture - Final No growth in 5 days Medications: Active Medications Generic Name Dose Route Start Last Admin Trade Name Freq PRN Reason Stop Dose Admin Acetaminophen 650 mg 02/02/18 12:00 02/04/18 05:35 Tylenol PO 650 mg Q4H SHAVONNE Administration Al Hydroxide/Mg Hydroxide 30 ml 01/17/18 14:19 01/23/18 20:34 Milk Of Magnesia Liq PO 30 ml Q12H PRN Administration Mild Constipation Budesonide/Formoterol Fumarate 2 puff 01/17/18 14:00 02/03/18 20:39 Symbicort 160/4.5 Mcg Inh INH 2 puff BID SHAVONNE Administration Folic Acid 1 mg 01/17/18 13:45 02/03/18 09:30 Folic Acid PO 1 mg DAILY SHAVONNE Administration Argatroban 250 mg/ Sodium 250 mls @ 0 mls/hr 01/18/18 15:00 02/03/18 23:46 Chloride IV.CONT 2.12 mcg/kg/min TITRATE PRN 8.78 mls/hr Per Protocol Administration Protocol Per Protocol Metoprolol Tartrate 12.5 mg 01/28/18 09:00 02/03/18 20:37 Lopressor PO 12.5 mg BID SHAVONNE Administration Morphine Sulfate 1 mg 01/26/18 10:08 02/02/18 07:25 Morphine Inj IV.PUSH 1 mg Q6HR PRN Administration PAIN 6-10;IF UNABLE TO TAKE PO Oxycodone HCl 5 mg 02/02/18 11:40 02/04/18 05:35 Roxicodone PO 5 mg Q4H PRN Administration PAIN SCALE 1 TO 10 Sennosides 17.2 mg 01/17/18 14:08 01/21/18 22:30 Senokot PO 17.2 mg Q12H PRN Administration Moderate Constipation Sodium Chloride 2 ml 01/17/18 11:17 01/20/18 20:43 Ns Flush IV.FLUSH 2 ml PRN PRN Administration FLUSH AFTER USING IV ACCESS Sodium Chloride 2 ml 01/31/18 09:00 02/03/18 20:39 Ns Flush IV.FLUSH Not Given BID SHAVONNE Temazepam 15 mg 01/17/18 21:00 02/03/18 20:37 Restoril PO 15 mg HS PRN Administration INSOMNIA Objective Remarks: GENERAL: Middle-aged male patient, lying in bed, in no acute distress. +anxious SKIN: Warm and dry. HEAD: Normocephalic. EYES: No scleral icterus. No injection or drainage. NECK: Supple, trachea midline. CARDIOVASCULAR: +S1/S2 without murmurs. RESPIRATORY: Anterior breath sounds clear, non-labored. GASTROINTESTINAL: Abdomen soft, non-tender, nondistended. EXTREMITIES: No cyanosis or edema. Bilateral feet/toes warm to touch. MUSCULOSKELETAL: Adequate muscle tone. NEUROLOGICAL: No obvious focal deficit. Awake, alert, and oriented x3. 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 Bernstein is a pleasant 62-year-old gentleman with a history of non-small cell lung cancer with brain metastasis, status post craniotomy with resection followed by stereotactic radiosurgery with gamma knife, 3-4 cycles of preop Immunochemotherapy with 2 doses of Platinol and Alimta he also underwent thoracotomy and resection of the left upper lobe and wedge resection of the left lower lobe on 01/01/2018. Patient had minimal residual disease of 0.6 cm and also the lymph nodes were negative. Margins were also negative. During this admission the patient was found to have severe thrombocytopenia. Patient did have recent exposure to subcutaneous heparin after his recent surgery. Plan: 1. Platelets 97,000 today, goal was 100,000 to transition to eliquis. Pt is extremely anxious and wants to go home, he is agreeable to stay one more night if he is converting to oral anticoagulant today. Discussed case with Dr. Cisneros, he is agreeable to stop argatroban today and transition to eliquis. We will stop the argatroban and start Eliquis 5mg po BID within 2 hours of stopping. 2. Continue to monitor for bleeding. 3. Discussed with RN, will order one time dose of Valium 5mg po for patients anxiety. 4. Once transitioned to Eliquis, he is cleared for discharge from a hematology standpoint. He should call the office Monday and schedule a one week follow-up appointment with Dr. Hernandez. - Attending Statement The exam, history, and the medical decision-making described in the above note were completed with the assistance of the mid-level provider. I reviewed and agree with the findings presented. I attest that I had a [id number] encounter with the patient on the same day, and personally performed and documented my assessment and findings in the medical record. At this point he can be transitioned to Eliquis 5 mg p.o. twice daily. From our perspective he can be discharged. I have asked him to see Dr. Zelaya within the next 2 weeks and to have a CBC and platelet count within 1 week.
--- NOTE | 2018-02-04 10:47 | P.PNNEU ---
Subjective Active Medications: Active Medications Acetaminophen (Tylenol) 650 mg PO Q4H [facility] Last Admin: 02/04/18 09:07 Dose: Not Given Al Hydroxide/Mg Hydroxide (Milk Of Magnesia Liq) 30 ml PO Q12H PRN PRN Reason: Mild Constipation Last Admin: 01/23/18 20:34 Dose: 30 ml Apixaban (Eliquis) 5 mg PO BID [facility] Bisacodyl (Dulcolax Supp) 10 mg RECTAL DAILY PRN PRN Reason: SEVERE CONSITIPATION Budesonide/Formoterol Fumarate (Symbicort 160/4.5 Mcg Inh) 2 puff INH BID [facility] Last Admin: 02/04/18 09:03 Dose: 2 puff Clonidine HCl (Catapres) 0.1 mg PO Q6H PRN PRN Reason: SEE LABEL COMMENTS Folic Acid (Folic Acid) 1 mg PO DAILY [facility] Last Admin: 02/04/18 09:03 Dose: 1 mg Lactulose (Lactulose Liq) 30 ml PO DAILY PRN PRN Reason: SEVERE CONSITIPATION Metoprolol Tartrate (Lopressor) 12.5 mg PO BID [facility] Last Admin: 02/04/18 09:01 Dose: 12.5 mg Miscellaneous (Pill Splitter) 1 each OTHER UNSCH PRN PRN Reason: SEE LABEL COMMENTS Last Admin: 02/04/18 09:01 Dose: 1 each Morphine Sulfate (Morphine Inj) 1 mg IV.PUSH Q6HR PRN PRN Reason: PAIN 6-10;IF UNABLE TO TAKE PO Last Admin: 02/02/18 07:25 Dose: 1 mg Naloxone HCl (Narcan Inj) 0.4 mg IV.PUSH UNSCH PRN PRN Reason: SEE LABEL COMMENTS Oxycodone HCl (Roxicodone) 5 mg PO Q4H PRN PRN Reason: PAIN SCALE 1 TO 10 Last Admin: 02/04/18 05:35 Dose: 5 mg Sennosides (Senokot) 17.2 mg PO Q12H PRN PRN Reason: Moderate Constipation Last Admin: 01/21/18 22:30 Dose: 17.2 mg Sodium Chloride (Ns Flush) 2 ml IV.FLUSH PRN PRN PRN Reason: FLUSH AFTER USING IV ACCESS Last Admin: 01/20/18 20:43 Dose: 2 ml Sodium Chloride (Ns Flush) 2 ml IV.FLUSH BID SHAVONNE Last Admin: 02/04/18 09:08 Dose: Not Given Sodium Chloride (Ns Flush) 2 ml IV.FLUSH PRN PRN PRN Reason: FLUSH AFTER USING IV ACCESS Temazepam (Restoril) 15 mg PO HS PRN PRN Reason: INSOMNIA Last Admin: 02/03/18 20:37 Dose: 15 mg Allergies/Adverse Reactions: Allergies Allergy/AdvReac Type Severity Reaction Status Date / Time heparin Allergy Severe Bleeding Verified 02/02/18 14:47 Physical Exam Vital signs: Vital Signs 02/03/18 11:33 02/03/18 12:00 02/03/18 16:00 Temperature 98.1 F 97.5 F L Pulse Rate 69 72 Respiratory Rate 18 18 18 Blood Pressure 114/55 L 102/62 Pulse Oximetry 98 99 02/03/18 18:16 02/03/18 18:17 02/03/18 20:00 Temperature 97.7 F Pulse Rate 80 Respiratory Rate 18 18 20 Blood Pressure 141/66 H Pulse Oximetry 99 02/04/18 08:00 Temperature 98.0 F Pulse Rate 80 Respiratory Rate 17 Blood Pressure 117/69 Pulse Oximetry 98 Intake & Output 02/03/18 02/04/18 02/04/18 18:59 06:59 18:59 Intake Total 1200 / 1200 1210 / 1210 80 / 80 Output Total 3 / 3 Balance 1197 / 1197 1210 / 1210 80 / 80 Weight 68.8 kg Intake: IV 250 / 250 80 / 80 Novastan Inj 250 MG In NS Inj 250 / 250 80 / 80 247.5 ML @ Per Protocol IV.CONT TITRATE PRN Rx#:[id number] Oral 1200 / 1200 960 / 960 Output: Urine 3 / 3 Other: # Voids 2 Narrative: awake maybe at most minimal rue ataxia near nl looks well and goo energy left ta now 5-/5 left foot eversion 4/5 - Urinary Catheter Management Indwelling Urethral Catheter Cath placed during this visit: yes, but has since been removed by the nurse Reason for continuing: Decision to DC catheter Insertion date: 01/25/18 Insertion time: 12:59 Removal date: 01/26/18 Removal time: 17:00 Objective Laboratory Results - last 24 hr 09/30/18 09/30/18 09/30/18 05:31 05:31 05:31 WBC 7.0 RBC 2.55 L Hgb 7.5 L Hct 22.7 L MCV 89.0 MCH 29.6 MCHC 33.3 RDW 17.8 H Plt Count 97 L MPV 8.2 Prelim Diff (Auto) Slide review pending Neut % (Auto) 56.7 Lymph % (Auto) 23.4 [place] % (Auto) 10.2 H Eos % (Auto) 7.8 H Baso % (Auto) 1.9 Neut # (Auto) 4.0 Lymph # (Auto) 1.6 [place] # (Auto) 0.7 Eos # (Auto) 0.5 H Baso # (Auto) 0.1 WBC Differential Manual diff final Seg Neuts % (Manual) 62 Lymphocytes % (Manual) 23 Monocytes % (Manual) 4 Eosinophils % (Manual) 6 H Basophils % (Manual) 1 Myelocytes % (Man) 4 H Abs Neuts (Manual) 4.6 Differential Comment . Platelet Estimate Low L Platelet Morphology Normal PT 34.4 H INR 3.4 APTT 62.9 H Sodium 142 Potassium 4.2 Chloride 107 Carbon Dioxide 28.1 Anion Gap 7 BUN 15 Creatinine 1.64 H Estimated GFR 42 L Random Glucose 96 Calcium 8.1 L Total Bilirubin 0.3 AST 16 ALT 21 Alkaline Phosphatase 69 Total Protein 6.5 Albumin 2.3 L Review/Management - Diagnosis (1) Metastatic primary lung cancer Code(s): C34.90 - Malignant neoplasm of unspecified part of unspecified bronchus or lung Status: Chronic Current Visit: Yes (2) Lower extremity weakness Code(s): R29.898 - Other symptoms and signs involving the musculoskeletal system Status: Acute Current Visit: Yes (3) Atrial fibrillation Code(s): I48.91 - Unspecified atrial fibrillation Status: Chronic Current Visit: Yes - Review/Management Plan: D/W DR LING TRIAL OF DDECADRON 4MG QID MRI RPT NOT YET DONE PT EVAL cta showed some blockages but does have flow in ble arterial dr hannah not convinced the thoracic abn is met could be vascular? i dw neurorad check cpk labs hit rx per dr pablo hernandez recently fu echo some infarct in kidney ? 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 will have to repeat mri t spine concerned with new weak left ankle 01/22/18 mri t spine no change looks more peripheral and not in cord neurorads did not think this was a cord avm vascular feels sx not from aortic dz with the left foot drop need emg and worry about carcinomatous meningits needs LP when able i will dw heme about plts try lyrica and neurontin not helping 01/23/18 no major change emg pend try decadron check cpk similar sx to a diabetic amyotrophy picture check mri of the ls plexus and pelvis 01/24/18 pain much better plt 49k should be able to do LP soon maybe a llittle stronger left ta ? aseptic necrosis hip so will hold further steroids and please have heme order LP jermaine when cleared plexus mri neg 01/25/[address] Keene vascular and dr shah no need to do LP now as cannot rx with chemo so surgery for what was felt yest to be ischemia sudden change watch renal fx emg pend 01/25/18/ doing well post op if pain does not return then yessy vascular creat 1.4 plt down a little legs warm looks well will fu monday if stillhere. emg possibly today o/w i will have to do o/p 01/27/2018 Arm strength improved. Leg strength improved after revascularization procedure although chronic left foot weakness Discussed with patient and spouse follow exam 01/28/2018 Strength improved in the upper extremities able raise above his head good radial pulse good automobile bumper straightener strength. Lower extremity strength also improving. Chronic left dorsiflexion weakness therapy rehab outpatient EMG PT Discussed with patient and spouse 01/29/18 he is alittle ataixic rue but i reviewed mri and no cva mra x2 neg x melisa has some dz we can look at this infuture dep on how plts and ca goes the c dony mr neg unclear why go this ataxia ow doing well and the left ta wekness improving and the pain lle gone now post op so must have been vascular 02/02/18 still left ta 4- and dec rom and looks like a left peroneal palsy will try and get emg note r ataxia unexplained plt 80 k 02/04/18 almost fully recovered doing well neurowise and ok for dc neurowise (2) Lower extremity weakness Qualifiers: Laterality: bilateral Qualified Code(s): R29.898 - Other symptoms and signs involving the musculoskeletal system
--- NOTE | 2018-02-04 10:49 | P.PNFP ---
Subjective Interval history: Patient was seen and evaluated this morning. He is tired of being here and says that he will leave tomorrow, "no matter what." Patient denies chest pain, heart palpitations, shortness of breath, nausea/ vomiting, diarrhea and constipation. Platelet count at 97,000. Hematology has agreed to transition him from argatroban drip to Eliquis today. All questions were answered. <Miladys Sifuentes - 02/04/18 18:18> Results - Labs Result diagrams: 02/04/18 05:31 02/04/18 05:31 <Jess Toro R - 02/05/18 06:58> Abnormal lab results 02/04/18 Range/Units 05:31 Eosinophils % (Manual) 6 H (0-4) % Myelocytes % (Man) 4 H (0-0) % Platelet Estimate Low L (Normal) <Jess Toro R - 02/05/18 06:58> Abnormal lab results 02/04/18 02/04/18 02/04/18 Range/Units 05:31 05:31 05:31 RBC 2.55 L (4.50-5.90) mil/mm3 Hgb 7.5 L (13.0-17.0) gm/dL Hct 22.7 L (39.0-51.0) % RDW 17.8 H (11.6-17.2) % Plt Count 97 L (150-450) th/mm3 Andrew % (Auto) 10.2 H (0.0-8.0) % Eos % (Auto) 7.8 H (0.0-4.0) % Eos # (Auto) 0.5 H (0.0-0.4) th/mm3 Eosinophils % (Manual) 6 H (0-4) % Myelocytes % (Man) 4 H (0-0) % Platelet Estimate Low L (Normal) PT 34.4 H (9.8-11.6) sec APTT 62.9 H (24.3-30.1) sec Creatinine 1.64 H (0.60-1.30) mg/dL Estimated GFR 42 L (>89) mL/min Calcium 8.1 L (8.5-10.1) mg/dL Albumin 2.3 L (3.4-5.0) g/dL Short CBC 02/04/18 Range/Units 05:31 WBC 7.0 (4.0-11.0) th/mm3 Hgb 7.5 L (13.0-17.0) gm/dL Hct 22.7 L (39.0-51.0) % Plt Count 97 L (150-450) th/mm3 BMP 02/04/18 05:31 Sodium 142 Potassium 4.2 Chloride 107 Carbon Dioxide 28.1 BUN 15 Creatinine 1.64 H Calcium 8.1 L Liver Function 02/04/18 Range/Units 05:31 Total Bilirubin 0.3 (0.2-1.0) mg/dL AST 16 (15-37) U/L ALT 21 (12-78) U/L Alkaline Phosphatase 69 (45-117) U/L Albumin 2.3 L (3.4-5.0) g/dL <BearEliseoMiladys - 02/04/18 10:49> Physical Exam Vital signs: Vital Signs 02/04/18 08:00 02/04/18 12:00 02/04/18 16:00 Temperature 98.0 F 98.0 F 98.2 F Pulse Rate 80 69 76 Respiratory Rate 17 13 16 Blood Pressure 117/69 148/74 H 135/70 Pulse Oximetry 98 97 96 02/04/18 20:00 Temperature 98 F Pulse Rate 82 Respiratory Rate 16 Blood Pressure 128/73 Pulse Oximetry 99 Intake & Output 02/04/18 02/04/18 02/05/18 06:59 18:59 06:59 Intake Total 1210 / 1210 800 / 800 5720 / 5720 Output Total 253 / 253 Balance 1210 / 1210 800 / 800 5467 / 5467 Weight 68.8 kg 68.8 kg Intake: IV 250 / 250 80 / 80 Novastan Inj 250 MG In NS Inj 250 / 250 80 / 80 247.5 ML @ Per Protocol IV.CONT TITRATE PRN Rx#:[id number] Oral 960 / 960 720 / 720 720 / 720 Anesthesia Amount 4500 / 4500 Mass Transfusion Protocol 500 / 500 Output: Urine 3 / 3 Stool 0 / 0 Estimated Blood Loss 250 / 250 Other: # Voids 2 4 2 Date of Last Bowel Movement 02/04/18 # Bowel Movements 1 1 <Jess Toro - 02/05/18 06:58> Vital Signs 09/29/18 11:33 02/03/18 12:00 02/03/18 16:00 Temperature 98.1 F 97.5 F L Pulse Rate 69 72 Respiratory Rate 18 18 Blood Pressure 114/55 L 102/62 Pulse Oximetry 98 99 02/03/18 18:16 02/03/18 18:17 02/03/18 20:00 Temperature 97.7 F Pulse Rate 80 Respiratory Rate 18 18 20 Blood Pressure 141/66 H Pulse Oximetry 99 02/04/18 08:00 Temperature 98.0 F Pulse Rate 80 Respiratory Rate 17 Blood Pressure 117/69 Pulse Oximetry 98 <BearPatriciaMiladys - 02/04/18 18:18> Narrative: GENERAL: Laying in bed, NAD. SKIN: Warm and dry. Incisions dry with no drainage. Resolving ecchymotic region left anterior lower holland, nontender, no palpable cord or warmth. CARDIOVASCULAR: Regular rate and rhythm. 2/6 systolic ejection murmur present. RESPIRATORY: No accessory muscle use. Clear to auscultation. Breath sounds equal bilaterally with decreased breath sounds in bases bilaterally. No wheezes , crackles, rales. GASTROINTESTINAL: Normal bowel sounds. Abdomen soft, non-tender, nondistended. MUSCULOSKELETAL: Extremities warm to touch. No edema or cyanosis. NEUROLOGICAL: Awake and alert. Normal speech. CN II-XII grossly intact. PSYCHIATRIC: Appropriate mood and affect; insight and judgment normal. <BearMiladys - 02/04/18 18:18> - Urinary Catheter Management Indwelling Urethral Catheter Cath placed during this visit: no <Jess Toro - 02/05/18 06:58> yes, but has since been removed by the nurse <Miladys Sifuentes - 02/04/18 18:18> Reason for continuing: Decision to DC catheter <Miladys Sifuentes - 02/04/18 10: 49> Insertion date: 01/25/18 <Miladys Sifuentes 02/04/18 10:49> Insertion time: 12:59 <Miladys Sifuentes - 02/04/18 10:49> Removal date: 01/26/18 <Miladys Sifuentes - 02/04/18 10:49> Removal time: 17:00 <Miladys Sifuentes - 02/04/18 10:49> Assessment and Plan - Assessment (1) Pain in both lower legs Code(s): M79.661 - ; M79.662 - Status: Resolved (2) Heparin induced thrombocytopenia Code(s): D75.82 - Status: Acute (3) Dysmetria Code(s): R27.8 - Status: Resolved (4) Hypertension Code(s): I10 - Status: Chronic (5) EVON (acute kidney injury) Code(s): N17.9 - Status: Chronic (6) Metastatic primary lung cancer Code(s): C34.90 - Status: Chronic (7) Thrombosis of right saphenous vein Code(s): I82.811 - Status: Acute (8) Anemia Code(s): D64.9 - Status: Acute (9) Avascular necrosis of hip Code(s): M87.059 - Status: Chronic (10) Atrial fibrillation Code(s): I48.91 - Status: Chronic (11) Nutrition, metabolism, and development symptoms Code(s): R63.8 - Status: Acute <Jess Toro Bradley - 02/05/18 06:58> (1) Pain in both lower legs Code(s): M79.661 - Pain in right lower leg; M79.662 - Pain in left lower leg Status: Resolved Plan: Patient presented with worsening pain and weakness in bilateral legs. Upon further discussion with patient, had signs and symptoms of peripheral arterial disease. Also, with associated neuropathy and weakness upon admission. Aorta CTA shows severe atherosclerotic disease with severe narrowing of distal aorta, mural thrombus at level of distal aorta and infarction of the inferior right kidney MRI with no acute findings. Cervical MRI shows stenosis. Thoracic MRI with possible drop mets. Repeat thoracic MRI shows slight enhancement along spinal cord either nerve root enhancement or drop metastases. Lumbar MRI wnl. EEG wnl. CPK 520. Sacrum/Coccyx MRI: no acute plexus findings. 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 * Recommend LP, holding due to thrombocytopenia as well as anticoagulation; not candidate for chemo at this time. * Patient is not interested in having LP during this hospitalization. * EMG shows demyelinating sensory motor polyneuropathy. * Clear for discharge from neurology standpoint. Vascular consulted-appreciate recs. * Post-op 9/20/18 from axillobifemoral bypass along with coiling proximal ilial flow. Tolerated procedure well. Feet warm and normal cap refill. * Signed off. Heme/onc consulted. * Transitioned from argatroban to Eliquis 5mg PO BID today. PT evaluating. * Recommend home health. Pain management: * Tylenol 650mg PO q4hr. * Oxycodone 5mg PO q4hr pain 1-10. * Morphine 1mg IV breakthrough pain. (2) Heparin induced thrombocytopenia Code(s): D75.82 - Heparin induced thrombocytopenia (HIT) Status: Acute Plan: Post-op from lobectomy and s/p heparin Heparin-induced thrombocytopenia antibody positive. Platelets rising today. No transfusion recommended at this time due to possibility of further coagulation. Hold all heparin forms. 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 * Transition from argatroban gtt to Eliquis 5mg PO BID today. (3) Dysmetria Code(s): R27.8 - Other lack of coordination Status: Resolved Plan: Patient developed right upper extremity dysmetria after surgery. Has difficulty reaching object with his right hand when he goes to shake hands or reach for something. Sensation and pulses intact. MRI and MRA head without any acute change. Improving neuro function. Continue PT. Monitor symptoms. (4) Hypertension Code(s): I10 - Essential (primary) hypertension Status: Chronic Plan: Patient with BP up to 170s/70s post-op. Started on clonidine and nitro patch initially, d/c post-op. Monitor vitals Metoprolol 12.5mg BID. Clonidine PO PRN SBP>180. (5) EVON (acute kidney injury) Code(s): N17.9 - Acute kidney failure, unspecified Status: Chronic Plan: Increasing serum creatinine during hospitalization. Admitted with Cr of 1.2. CMP from 06/28/17 with Cr of 0.95. Aortic CTA shows infarct of inferior pole of right kidney of unknown age. Cr stable. 1.6- 1.7 may new baseline. Monitor I/Os, urine output. Monitor BMP. Avoid nephrotoxic agents. Avoid further contrast studies if able. Renal consulted: * Suspect contrast nephrotoxicity. * Serum complements wnl; urine eosinophils negative. (6) Metastatic primary lung cancer Code(s): C34.90 - Malignant neoplasm of unspecified part of unspecified bronchus or lung Status: Chronic Plan: S/p chemo in November, s/p lobectomy. Recent PET scans negative. MRI spine shows possible mets. Repeat brain MRI with no acute change. Management per oncology team; discussing case with patients oncologist in [place] , Dr. Dillard. Regarding possible drop mets * Unsure of etiology at this time. Radiation oncology consulted * No therapy at this time due to low platelets. (7) Thrombosis of right saphenous vein Code(s): I82.811 - Embolism and thrombosis of superficial veins of right lower extremity Status: Acute Plan: Lower extremity superficial vein, generally benign and self-limited however a larger vein is involved in this case. Caution with propagation into the DVT system and PE possibility. Likely due to abnormal coagulation at this time. Elevation. Pain management. (8) Anemia Code(s): D64.9 - Anemia, unspecified Status: Acute Plan: No history of anemia per patient. Likely chronic anemia, patient at high risk for bleeding due to thrombocytopenia. Unsure of the exact cause, chemotherapy vs recent surgery vs chronic anemia. (9) Avascular necrosis of hip Code(s): M87.059 - Idiopathic aseptic necrosis of unspecified femur Status: Chronic Plan: MRI of sacrum revealed findings of avascular necrosis involving the right femoral head. No collapse. Patient reports chronic hip pain, nothing acute. Unsure etiology. Did receive IV steroids on 01/23. * Will hold further steroids at this time. * Continue to monitor. (10) Atrial fibrillation Code(s): I48.91 - Unspecified atrial fibrillation Status: Chronic Plan: History of Afib. Controlled rate. Was diagnosed after previous surgery. 2/6 YANA murmur on exam, TR and MR seen on Echo. Echo shows EF of 50-55%, segmental wall motion abnormalities with hypokinesis. No episodes of Afib during admission; telemety d/c. Continue metoprolol. (11) Nutrition, metabolism, and development symptoms Code(s): R63.8 - Other symptoms and signs concerning food and fluid intake Status: Acute Plan: Fluids: * Tolerating PO. Electrolytes: * Monitor and replete as necessary. Nutrition: * Regular diet. DVT prophylaxis: Holding all heparin products, now on Eliquis. Incentive spirometry. <Miladys Sifuentes - 02/04/18 18:10> - Assessment and Plan 62 year old male with history of lung cancer with mets to brain, hypertension, atrial fibrillation presented on admission with bilateral leg pain/weakness. Admitted for workup. 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 Currently on argatroban gtt, awaiting improvement of platelets. Post-op from axillofemoral bypass with coiling. Pain and blood flow improved. Awaiting improvement of platelets for transition to oral anticoagulant. <Miladys Sifuentes - 02/04/18 18:18> - Attending Attestation The exam, history, and the medical decision-making described in the above note were completed with the assistance of the resident physician. I reviewed and agree with the findings presented. I attest that I had a [id number] encounter with the patient on the same day, and personally performed and documented my assessment and findings in the medical record. <Jess Toro - 02/05/18 06:58> <Miladys Sifuentes - Last Filed: 02/04/18 18:10> (8) Anemia Qualifiers: Anemia type: bone marrow failure Bone marrow failure anemia type: pancytopenia, antineoplastic chemotherapy-induced Qualified Code(s): D61.810 - Antineoplastic chemotherapy induced pancytopenia; T45.1X5A - Adverse effect of antineoplastic and immunosuppressive drugs, initial encounter (9) Avascular necrosis of hip Qualifiers: Laterality: right Qualified Code(s): M87.051 - Idiopathic aseptic necrosis of right femur <Jess Toro - Last Filed: 02/05/18 06:58> (8) Anemia Qualifiers: Anemia type: bone marrow failure Bone marrow failure anemia type: pancytopenia, antineoplastic chemotherapy-induced Qualified Code(s): D61.810 - Antineoplastic chemotherapy induced pancytopenia; T45.1X5A - Adverse effect of antineoplastic and immunosuppressive drugs, initial encounter (9) Avascular necrosis of hip Qualifiers: Laterality: right Qualified Code(s): M87.051 - Idiopathic aseptic necrosis of right femur <Miladys Sifuentes - Last Filed: 02/04/18 18:10> (8) Anemia Qualifiers: Anemia type: bone marrow failure Bone marrow failure anemia type: pancytopenia, antineoplastic chemotherapy-induced Qualified Code(s): D61.810 - Antineoplastic chemotherapy induced pancytopenia; T45.1X5A - Adverse effect of antineoplastic and immunosuppressive drugs, initial encounter (9) Avascular necrosis of hip Qualifiers: Laterality: right Qualified Code(s): M87.051 - Idiopathic aseptic necrosis of right femur <Jess Toro R - Last Filed: 02/05/18 06:58> (8) Anemia Qualifiers: Anemia type: bone marrow failure Bone marrow failure anemia type: pancytopenia, antineoplastic chemotherapy-induced Qualified Code(s): D61.810 - Antineoplastic chemotherapy induced pancytopenia; T45.1X5A - Adverse effect of antineoplastic and immunosuppressive drugs, initial encounter (9) Avascular necrosis of hip Qualifiers: Laterality: right Qualified Code(s): M87.051 - Idiopathic aseptic necrosis of right femur
[2018-02-04 17:37] VITALS: RESP 16
[2018-02-04] MEDS: Temazepam 15 MG Capsule PO PRN (21:14)
[2018-02-04 21:25] VITALS: BP 128/73; PULSE 82; TEMP 98; O2SAT 99
[2018-02-05] MEDS: Acetaminophen 325 MG Tablet PO SCH ×4 (00:06→11:54)
[2018-02-05] MEDS: Budesonide-Formoterol 160/4.5 MCG 6 GM Inhaler INH SCH ×2 (00:06→08:51)
[2018-02-05 07:25] LABS: Hematocrit 24.8 % (39.0-51.0); Hemoglobin 8.3 gm/dL (13.0-17.0); Mean Corpuscular HGB Conc 33.5 % (32.0-36.0); Mean Corpuscular Hemoglobin 29.6 pg (27.0-34.0); Mean Corpuscular Volume 88.4 fL (80.0-100.0); Mean Platelet Volume 8.1 fL (7.0-11.0); Platelet Count 110 th/mm3 (150-450); Red Blood Count 2.81 mil/mm3 (4.50-5.90); Red Cell Distribution Width 17.8 % (11.6-17.2); White Blood Count 9.2 th/mm3 (4.0-11.0)
[2018-02-05] MEDS: Metoprolol Tartrate 25 MG Tablet PO SCH (08:49)
[2018-02-05] MEDS: Folic Acid 1 MG Tablet PO SCH (08:50)
[2018-02-05] MEDS: Sodium Chloride 0.9% 2 ML Flush BID IV.FLUSH SCH (08:50)
--- NOTE | 2018-02-05 09:46 | P.PNVS ---
Subjective Subjective/Hospital Course: Patient seen and full consult dictated We will follow Thanks J 01/24/[address] Veras, interventional radiology and we jointly examined the patient and spoke to the and the patient. For details refer to my original consult from last week. On physical exam patient has more prominent changes as far as the decrease in blood flow in both feet. He still has dopplerable femoral and popliteal pulses as well as weak dorsalis pedis posterior tibial on the left and only posterior tibial on the right. In comparison to last week and this Monday, indeed toes are more dusky appearing with some cyanotic hue especially the right foot. Capillary refill is quite decreased at this time. There is no question that patient is throwing embolic material and showering microthrombi and micro emboli distally. Renal function is somewhat improved which is helpful and platelet count is slowly rising. This is a very complex situation and remedies are limited Patient is not a candidate for aortobifemoral bypass for this is a major surgery which patient would not sustain very well. The other option is placing iliac covered stents to push the clot aside. Unfortunately this would allow for aortic thrombotic material to flush downward unimpeded and with essentially worsened the situation. Therefore after discussing this with patient and family and then between Dr. Veras, Dr. Calzada and myself we agreed on following hybrid approach Patient will have axillobifemoral bypass in order to improve the blood flow to the legs and bypass the occluded area of aorta and iliac arteries. At the same , time Dr. Veras will coil the remaining proximal iliac flow in order to prevent clots from flushing down further. Between these 2 patient has the best chance to maintain the flow to the legs and minimize the chance of further distal embolization. Unfortunately patient does have metastatic lung cancer and his longevity is predicated upon this but also possible complications from the above-noted procedures for he will continue to have a low level consumption coagulopathy and may form clots in his axillobifemoral graft or in the distal [place] vessels. He will need to remain on full anticoagulation for the rest of his life probably go home on either factor VIIa inhibitor or thrombin inhibitor. I will also offer to the patient the option of going back to [place] where he already had lung surgery and brain surgery for they have established trust with that group of physicians and surgeons. Otherwise, patient is on schedule for tomorrow for axillobifemoral bypass and coiling of the iliacs. Discussed with hematology as well. I have extensively discussed the risks and benefits of the surgery with patient and his as well as potential risks including loss of both extremities and . 01/26/2018 Patient is status post axillobifemoral bypass and endovascular coiling of the common iliac arteries Incisions are clean and dry Patient is awake alert and oriented Patient has brisk flow in the axillofemoral graft and strong dopplerable popliteal and posterior tibial pulses Weak dorsalis pedis pulses Feet are nice and warm well perfused and capillary refill is normal Patient currently on argatroban and should probably go home on some oral anticoagulant probably Eliquis. Plan Transfer to floor Hep-Lock IV Out of bed Regular diet 01/27/2018 Patient doing well incisions are clean and dry Excellent flow in the axillofemoral portion of the graft into the both groins Both feet are nice and warm and well-perfused Patient still has some weakness in the right arm but this is improving since the surgery Patient ambulating in the corners without difficulty Greatly appreciate expertise by Dr. Calzada Fully agree with care and Dr. Hernandez hematology and Dr. Benjamin neurology valuable inputs and expertise are greatly appreciated Nothing to add from vascular point 01/28/2018 Patient doing very well Incisions clean and dry Excellent Doppler signal and the axillobifemoral grafts and distally Feet are warm and well perfused with normal capillary refill Patient may shower get incisions wet 01/29/2018 Nothing to add to care Incisions clean and dry and patient ambulating with ease Would send home on some sort of anticoagulation preferably factor VII inhibitor Follow-up in my office in about 3-4 weeks 01/30/2018 Patient doing well at this time Incision is clean and dry Platelet count slowly coming up Patient can shower get incisions wet Nothing to add to care at this time and patient will be discharged on factor VIIa inhibitor once the platelet count is adequate per hematology. 02/02/2018 Patient doing very well Both feet are warm and patient is ambulating with ease Incisions are clean and dry Platelets are slowly coming up Nothing to add to care from surgical point 02/05/2018 From vascular point nothing to add to care Patient is doing very well and has excellent signal in all grafts as well as both feet Feet are warm and well perfused and patient is ambulating with ease Incisions are clean and dry healing nicely Platelets are now over 100,000 and patient can be safely discharged home on a factor VIIa inhibitor Follow-up with my office in about 6 months, or earlier if problems occur. We will sign off at this time Objective Vital Signs / I&O: Vital Signs 02/04/18 12:00 02/04/18 16:00 02/04/18 20:00 Temperature 98.0 F 98.2 F 98 F Pulse Rate 69 76 82 Respiratory Rate 13 16 16 Blood Pressure 148/74 H 135/70 128/73 Pulse Oximetry 97 96 99 Intake & Output 02/04/18 02/05/18 02/05/18 18:59 06:59 18:59 Intake Total 800 / 800 5720 / 5720 Output Total 253 / 253 Balance 800 / 800 5467 / 5467 Weight 68.8 kg Intake: IV 80 / 80 Novastan Inj 250 MG In NS Inj 80 / 80 247.5 ML @ Per Protocol IV.CONT TITRATE PRN Rx#:[id number] Oral 720 / 720 720 / 720 Anesthesia Amount 4500 / 4500 Mass Transfusion Protocol 500 / 500 Output: Urine 3 / 3 Stool 0 / 0 Estimated Blood Loss 250 / 250 Other: # Voids 4 2 Date of Last Bowel Movement 02/04/18 # Bowel Movements 1 1 Laboratory Results - last 24 hr 02/05/18 02/05/18 06:39 06:39 WBC 9.2 RBC 2.81 L Hgb 8.3 L Hct 24.8 L MCV 88.4 MCH 29.6 MCHC 33.5 RDW 17.8 H Plt Count 110 L MPV 8.1 APTT 25.9 D Microbiology 02/04/18 18:40 Stool Occult Blood ([facility]) - Final Stool Hemoccult negative
--- NOTE | 2018-02-05 11:16 | P.DCO ---
- Physical Therapy Order: Evaluate and treat, Improve ambulation, Strength and gait training - Case Management Consult No - Certification I have seen patient Audi Bernstein on 02/05/18. My clinical findings support the need for the requested home health care services because: Limited mobility due to disease progression, Deconditioned with increased weakness I certify that my clinical findings support that this patient is homebound because: Post-op weakness, Unsteady gait/balance
--- NOTE | 2018-02-05 11:22 | P.PN ---
Subjective Interval history: Pt feeling great this morning and ready to go home. Reviewed post hospitalization care, follow up and medications. He has no concerns at this time. All questions were answered. Pt denies CP, SOB, MEJIA, N/V. Physical Exam Vital signs: Vital Signs 02/04/18 12:00 02/04/18 16:00 02/04/18 20:00 Temperature 98.0 F 98.2 F 98 F Pulse Rate 69 76 82 Respiratory Rate 13 16 16 Blood Pressure 148/74 H 135/70 128/73 Pulse Oximetry 97 96 99 Intake & Output 02/04/18 02/05/18 02/05/18 18:59 06:59 18:59 Intake Total 800 / 800 5720 / 5720 Output Total 253 / 253 Balance 800 / 800 5467 / 5467 Weight 68.8 kg Intake: IV 80 / 80 Novastan Inj 250 MG In NS Inj 80 / 80 247.5 ML @ Per Protocol IV.CONT TITRATE PRN Rx#:[id number] Oral 720 / 720 720 / 720 Anesthesia Amount 4500 / 4500 Mass Transfusion Protocol 500 / 500 Output: Urine 3 / 3 Stool 0 / 0 Estimated Blood Loss 250 / 250 Other: # Voids 4 2 Date of Last Bowel Movement 02/04/18 # Bowel Movements 1 1 Narrative: GENERAL: Laying in bed, NAD. CARDIOVASCULAR: Regular rate and rhythm. 2/6 systolic ejection murmur present. RESPIRATORY: No accessory muscle use. Clear to auscultation. Breath sounds equal bilaterally with decreased breath sounds in bases bilaterally. GASTROINTESTINAL: Normal bowel sounds. Abdomen soft, non-tender, nondistended. MUSCULOSKELETAL: Extremities warm to touch. No edema or cyanosis. NEUROLOGICAL: Awake and alert. Normal speech. CN II-XII grossly intact. PSYCHIATRIC: Appropriate mood and affect; insight and judgment normal. - Urinary Catheter Management Indwelling Urethral Catheter Cath placed during this visit: yes, but has since been removed by the nurse Reason for continuing: Decision to DC catheter Insertion date: 01/25/18 Insertion time: 12:59 Removal date: 01/26/18 Removal time: 17:00 Results - Labs CBC & Chem 7: 02/05/18 06:39 02/04/18 05:31 Laboratory Results - last 24 hr 02/05/18 02/05/18 02/05/18 06:39 06:39 10:12 WBC 9.2 RBC 2.81 L Hgb 8.3 L Hct 24.8 L MCV 88.4 MCH 29.6 MCHC 33.5 RDW 17.8 H Plt Count 110 L MPV 8.1 APTT 25.9 D Blood Type O Positive Blood Type Recheck Not needed Antibody Screen Negative Microbiology 02/04/18 18:40 Stool Stool Occult Blood (JEROME) - Final Hemoccult negative - Procedures none Assessment and Plan - Assessment (1) Heparin induced thrombocytopenia Code(s): D75.82 - Heparin induced thrombocytopenia (HIT) Status: Acute (2) Hypertension Code(s): I10 - Essential (primary) hypertension Status: Chronic (3) EVON (acute kidney injury) Code(s): N17.9 - Acute kidney failure, unspecified Status: Chronic (4) Metastatic primary lung cancer Code(s): C34.90 - Malignant neoplasm of unspecified part of unspecified bronchus or lung Status: Chronic (5) Thrombosis of right saphenous vein Code(s): I82.811 - Embolism and thrombosis of superficial veins of right lower extremity Status: Acute (6) Anemia Code(s): D64.9 - Anemia, unspecified Status: Acute (7) Avascular necrosis of hip Code(s): M87.059 - Idiopathic aseptic necrosis of unspecified femur Status: Chronic (8) Atrial fibrillation Code(s): I48.91 - Unspecified atrial fibrillation Status: Chronic (9) Nutrition, metabolism, and development symptoms Code(s): R63.8 - Other symptoms and signs concerning food and fluid intake Status: Acute - Plan 62 year old male with history of lung cancer with mets to brain, hypertension, atrial fibrillation presented on admission with bilateral leg pain/weakness. Admitted for workup and shown to have thrombocytopenia on admission, with positive for HIT antibodies. Currently on argatroban gtt, awaiting improvement of platelets. Post-op from axillofemoral bypass with coiling. Pain and blood flow improved. During the last few days patient has improved significantly in his demeanor, he wishes to go home today. His platelets are 110, yesterday Hematology started Eliquis 5mg BID and he has responded appropriately. Pt will be DC home today with appropriate follow up and medications. Plan: - DC home today in good condition - Face to face ordered and discussed with CM - Eliquis and Metoprolol prescriptions filled for 10 days - Follow up with Hematology on Monday, (cross and type ordered by them today) . Nephrology in a few weeks, and PCP within the next week or two. Pt seen and discussed with Dr. Toro - Attending Attestation The exam, history, and the medical decision-making described in the above note were completed with the assistance of the resident physician. I reviewed and agree with the findings presented. I attest that I had a [id number] encounter with the patient on the same day, and personally performed and documented my assessment and findings in the medical record. (6) Anemia Qualifiers: Anemia type: bone marrow failure Bone marrow failure anemia type: pancytopenia, antineoplastic chemotherapy-induced Qualified Code(s): D61.810 - Antineoplastic chemotherapy induced pancytopenia; T45.1X5A - Adverse effect of antineoplastic and immunosuppressive drugs, initial encounter (7) Avascular necrosis of hip Qualifiers: Laterality: right Qualified Code(s): M87.051 - Idiopathic aseptic necrosis of right femur
--- NOTE | 2018-02-05 12:39 | P.PNONC ---
Subjective Interval history: Patient sitting up in bed, in no acute distress. He has no complaints at this time. He denies bleeding or any pain in his legs. He is awaiting discharge home today. Discussed follow-up in outpatient oncology clinic for CBC this week f/u with interventional nurse in 1-2 weeks. Patient verbalizes understanding and will call the office to schedule appointments. Objective Vital Signs/Intake & Output: Vital Signs 02/04/18 16:00 02/04/18 20:00 Temperature 98.2 F 98 F Pulse Rate 76 82 Respiratory Rate 16 16 Blood Pressure 135/70 128/73 Pulse Oximetry 96 99 Intake & Output 02/04/18 02/05/18 02/05/18 18:59 06:59 18:59 Intake Total 800 / 800 5720 / 5720 Output Total 253 / 253 Balance 800 / 800 5467 / 5467 Weight 68.8 kg Intake: IV 80 / 80 Novastan Inj 250 MG In NS Inj 80 / 80 247.5 ML @ Per Protocol IV.CONT TITRATE PRN Rx#:[id number] Oral 720 / 720 720 / 720 Anesthesia Amount 4500 / 4500 Mass Transfusion Protocol 500 / 500 Output: Urine 3 / 3 Stool 0 / 0 Estimated Blood Loss 250 / 250 Other: # Voids 4 2 Date of Last Bowel Movement 02/04/18 # Bowel Movements 1 1 Result Diagrams: 02/05/18 06:39 02/04/18 05:31 Laboratory Results: Laboratory Results - last 24 hr 02/05/18 02/05/18 02/05/18 06:39 06:39 10:12 WBC 9.2 RBC 2.81 L Hgb 8.3 L Hct 24.8 L MCV 88.4 MCH 29.6 MCHC 33.5 RDW 17.8 H Plt Count 110 L MPV 8.1 APTT 25.9 D Blood Type O Positive Blood Type Recheck Not needed Antibody Screen Negative Culture Results: Microbiology 02/04/18 18:40 Stool Occult Blood (JEROME) - Final Stool Hemoccult negative Medications: Active Medications Generic Name Dose Route Start Last Admin Trade Name Freq PRN Reason Stop Dose Admin Acetaminophen 650 mg 02/02/18 12:00 02/05/18 11:54 Tylenol PO Not Given Q4H SHAVONNE Al Hydroxide/Mg Hydroxide 30 ml 01/17/18 14:19 02/04/18 11:25 Milk Of Magnesia Liq PO 30 ml Q12H PRN Administration Mild Constipation Apixaban 5 mg 02/04/18 11:30 02/05/18 08:49 Eliquis PO 5 mg BID SHAVONNE Administration Budesonide/Formoterol Fumarate 2 puff 01/17/18 14:00 02/05/18 08:51 Symbicort 160/4.5 Mcg Inh INH 2 puff BID SHAVONNE Administration Folic Acid 1 mg 01/17/18 13:45 02/05/18 08:50 Folic Acid PO 1 mg DAILY SHAVONNE Administration Metoprolol Tartrate 12.5 mg 01/28/18 09:00 02/05/18 08:49 Lopressor PO 12.5 mg BID SHAVONNE Administration Miscellaneous 1 each 01/28/18 07:44 02/04/18 09:01 Pill Splitter OTHER 1 each UNSCH PRN Administration SEE LABEL COMMENTS Morphine Sulfate 1 mg 01/26/18 10:08 02/02/18 07:25 Morphine Inj IV.PUSH 1 mg Q6HR PRN Administration PAIN 6-10;IF UNABLE TO TAKE PO Oxycodone HCl 5 mg 02/02/18 11:40 02/04/18 21:15 Roxicodone PO 5 mg Q4H PRN Administration PAIN SCALE 1 TO 10 Sennosides 17.2 mg 01/17/18 14:08 01/21/18 22:30 Senokot PO 17.2 mg Q12H PRN Administration Moderate Constipation Sodium Chloride 2 ml 01/17/18 11:17 01/20/18 20:43 Ns Flush IV.FLUSH 2 ml PRN PRN Administration FLUSH AFTER USING IV ACCESS Sodium Chloride 2 ml 01/31/18 09:00 02/05/18 08:50 Ns Flush IV.FLUSH 2 ml BID SHAVONNE Administration Temazepam 15 mg 01/17/18 21:00 02/04/18 21:14 Restoril PO 15 mg HS PRN Administration INSOMNIA Objective Remarks: GENERAL: Middle-aged male patient, sitting at bedside, in no acute distress. SKIN: Warm and dry. Steri-Strips to right chest wall, dry and intact. HEAD: Normocephalic. EYES: No scleral icterus. No injection or drainage. NECK: Supple, trachea midline. CARDIOVASCULAR: +S1/S2 without murmurs. RESPIRATORY: Anterior breath sounds clear, non-labored. GASTROINTESTINAL: Abdomen soft, non-tender, nondistended. EXTREMITIES: No cyanosis or edema. Bilateral feet/toes warm to touch. MUSCULOSKELETAL: Adequate muscle tone. NEUROLOGICAL: No obvious focal deficit. Awake, alert, and oriented x3. 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 Bernstein is a pleasant 62-year-old gentleman with a history of non-small cell lung cancer with brain metastasis, status post craniotomy with resection followed by stereotactic radiosurgery with gamma knife, 3-4 cycles of preop Immunochemotherapy with 2 doses of Platinol and Alimta he also underwent thoracotomy and resection of the left upper lobe and wedge resection of the left lower lobe on 01/01/2018. Patient had minimal residual disease of 0.6 cm and also the lymph nodes were negative. Margins were also negative. During this admission the patient was found to have severe thrombocytopenia. Patient did have recent exposure to subcutaneous heparin after his recent surgery. Plan: 1. Platelets 110,000 today, pt was transitioned to eliquis yesterday. Tolerating well. 2. Patient cleared for discharge from a hematology standpoint. He is to remain on Eliquis 5 mg twice daily. He will follow-up in outpatient clinic for CBC this week and follow-up with interventional nurse in 1-2 weeks. He will monitor for bleeding and notify our office immediately for any signs of bleeding or if he has any difficulties obtaining his prescriptions. - Attending Statement The exam, history, and the medical decision-making described in the above note were completed with the assistance of the mid-level provider. I reviewed and agree with the findings presented. I attest that I had a [id number] encounter with the patient on the same day, and personally performed and documented my assessment and findings in the medical record. Patient is anxious to go home Denies any new complaint. Platelets are 110 today. Patient was started on Eliquis 5 mg twice a day yesterday. So far he has been tolerating it well. Patient has symptomatic anemia. I have arranged him to come to our office on Monday for the blood transfusion. We will do type and cross today. Patient can be discharged from my standpoint. I will see the patient back next week Monday for follow-up. I will check the CBC on Monday and next week Monday. Discussed with patient, and his RN
--- NOTE | 2018-02-16 15:09 | P.DS ---
Date of admission: 01/17/18 13:44 Primary care physician: Crescencio Kelly MD Brief History from admission: 62 y/o M, woke up the night before admission with severe pain in lower extremities bilaterally. The pain was so bad it woke him up at 2AM . Pt states it felt like terrible muscle cramps and also a "pins and needles" sensation in both legs and feet bilaterally. He woke up his and said he didn't think he could make it to the bathroom. Even with the walker his legs "could not work" and he fell coming back from the bathroom. He continued to have pain overnight despite percocet and leg massage. When he woke up the morning of admission he felt OK, was able to walk, then it started to hurt again. He sat down in the recliner and the pain returned and he was unable to get back out of the chair. He had to crawl to his walker. They called their Nurse Practitioner from the recent surgery, and they were told to come into the ER for a venous duplex US for blood clots. Pt has been constipated from his pain medication post-op, but had a BM yesterday morning. No changes in urination. In ROS; he does feel numbness/paraesthesias around his rectum (could not feel wiping his bottom last night). He does not think he had any paraesthesias during the BM this morning. This patient had chemo including cisplatin through 4 rounds he ended his last chemo at the end of November. He when asked about numbness paresthesias or some peripheral neuropathy he stated that he has had some numbness on the dorsum of his feet bilaterally and he also has had some numbness "like they fell asleep" in the back of his calves extending up to the knee bilaterally. There is severe pain that he would get would come suddenly and would affect the areas that already had some numbness. Since being in the hospital he has continued to have some episodes of this pain and required morphine to get rid of it. DS: Diagnosis - Discharge Diagnosis (1) Heparin induced thrombocytopenia Status: Acute (2) Hypertension Status: Chronic (3) EVON (acute kidney injury) Status: Chronic (4) Metastatic primary lung cancer Status: Chronic (5) Thrombosis of right saphenous vein Status: Acute (6) Anemia Status: Acute (7) Avascular necrosis of hip Status: Chronic (8) Atrial fibrillation Status: Chronic (9) Nutrition, metabolism, and development symptoms Status: Acute DS: Medications - Discharge Medications Prescriptions: apixaban [Eliquis] 5 mg PO BID 15 Days #30 tab metoprolol tartrate 25 mg PO BID 15 Days #30 tab DS: Summary Hospital Course: Patient presented after worsening pain and weakness in bilateral legs. Upon further discussion with patient, has signs and symptoms of peripheral arterial disease. Aorta CTA showed severe atherosclerotic disease with severe narrowing of distal aorta. Mural thrombus at level of distal aorta and infarction of the inferior right kidney. Initially pt was not a candidate for surgery, but after improving his clinical status, pt had axillobifemoral bypass along with coiling proximal ilial flow. Procedure was successful and patient tolerated it well. On post op day 1 from bypass, pt developed right upper extremity dysmetria. MRI and MRA demonstrated no acute changes. Pt worked intensively with PT to improve his condition. Upon admission, patient was also on postop day #12 from lobectomy (performed in [place]) and s/p heparin 9 days on admission. Found to have Heparin-induced thrombocytopenia antibody positive. Switched treatment to argatroban gtt. During this hospitalization pt met sepsis criteria and developed an EVON. Sepsis was extensively worked up. Pt had fever several days and leukocytosis, but negative blood cultures and no suspected source of infection. He received Vancomycin and Cefepine. The last 10 days of pt's hospitalization were focused on increasing his platelet count in order to transition to Eliquis from argatroban drip. Pt was discharged on a stable condition once platelets reached 110. - Time Spent with Patient Total time spent providing and/or coordinating discharge services: Greater than 30 minutes - Quality: VTE Deep Vein Thrombosis/Pulmonary Embolism Present on Admission: No Exam Narrative: GENERAL: Laying in bed, NAD. CARDIOVASCULAR: Regular rate and rhythm. 2/6 systolic ejection murmur present. RESPIRATORY: No accessory muscle use. Clear to auscultation. Breath sounds equal bilaterally with decreased breath sounds in bases bilaterally. GASTROINTESTINAL: Normal bowel sounds. Abdomen soft, non-tender, nondistended. MUSCULOSKELETAL: Extremities warm to touch. No edema or cyanosis. NEUROLOGICAL: Awake and alert. Normal speech. CN II-XII grossly intact. PSYCHIATRIC: Appropriate mood and affect; insight and judgment normal. Results Procedures completed during hospitalization: 01/25/18 axillobifemoral bypass along with coiling proximal ilial flow - Impressions ITS Impressions Venous Doppler Study 01/17/18 11:22 CONCLUSION: 1. Occlusive thrombus is seen in the greater saphenous vein on the right. Lumbar Spine MRI 01/17/18 12:34 CONCLUSION: 1. Unremarkable appearance of the lumbar spine. 2. No evidence of bony or soft tissue metastases. Aorta w/Runoff CTA 01/17/18 17:39 CONCLUSION: 1. Infarction of the inferior pole of the right kidney of unknown age. 2. Severe chronic appearing infrarenal atherosclerotic disease causing severe narrowing of the distal aorta and proximal inflow vessels. Outflow is noted with diffuse atherosclerotic change below the bifurcation with two-vessel runoff to the feet. Thoracic Spine MRI 01/20/18 00:00 CONCLUSION: 1. Stable examination with abnormal left hemithorax. 2. Very slight enhancement seen along the lower thoracic spinal cord on the right may be related to nerve root enhancement or drop metastases. Is not well evaluated on this study. Sacrum/Coccyx MRI 01/23/18 00:00 CONCLUSION: Negative MRI of the sacrum. Avascular necrosis right femoral head. MR of the hip is recommended if clinically indicated Pelvic Arteriogram 01/25/18 00:00 CONCLUSION: 1. Successful deployment of bilateral 8 mm x 20 cm interlock coils within the central portions of the common iliac arteries bilaterally. 2. Procedure was done in conjunction with the surgical axillary bifemoral bypass. Neck MRA 01/26/18 00:00 CONCLUSION: 1. Limited exam because of lack of intravenous contrast. 2. Phase contrast study was performed. Correlation ultrasound would be of benefit. Stenosis of the left does not not appear to be hemodynamically significant. _ Percent stenosis is calculated using the diameter of the stenotic region over the diameter of the normal distal internal carotid artery _ Head MRI 01/26/18 10:49 CONCLUSION: 1. Encephalomalacia involving the left occipital lobe with ex vacuo dilatation of the atrium of the left lateral ventricle. 2. No acute infarct, acute hemorrhage, midline shift or extra-axial fluid collections. Head MRA 01/26/18 10:49 CONCLUSION: 1. Anatomic variant of the [place] of [place] as above. 2. Otherwise, intracranial vessels are all patent without aneurysmal disease. Cervical Spine MRI 01/26/18 10:50 CONCLUSION: 1. Small broad-based central to left paracentral focal disc bulges at C4-5 and C5-6 resulting and mild spinal stenosis and mild bilateral foraminal narrowing. Mild facet joint hypertrophy is noted bilaterally at these levels. 2. Minimal diffuse disc bulges at C3-4 and C6-7. 3. Minimal bilateral foraminal narrowing at C3-4. Chest X-Ray 01/27/18 00:00 CONCLUSION: Evidence for previous surgery in the left upper lobe with some peribronchial thickening in the left lower lobe. Right lung is clear. Discharge Plan - Discharge Disposition Patient Disposition: W/Home Health Service - Discharge Condition Condition: Good - Discharge Order Discharge Orders: Discharge Order (Routine); Ordered 02/05/18 Ordered By: Roberta Young - Physicians Team Primary Care Provider: Crescencio Kelly Attending Provider: Jess Toro Other Providers: Rafi Mon MD ; Antwon Blanton MD ; Connie Hernandez MD ; Jens Butt MD ; Samy Silver MD ; Abril Garcia MD ; Aimee Fink MD ; Odalis Goldstein MD
== END 2018-02-05 12:36 | disposition home health service (06) ==
LOC: NEPE 10:09 → NEDA 13:44 → N04 16:52 → N03 01-25 13:29 → N07 01-27 00:50
PROVIDERS: ADMIT Family Medicine; ATTEND Family Medicine